=== PATIENT | male | born 1945 | race Caucasian/White ===

== ENCOUNTER 2017-12-22 13:00 | Inpatient (IN) | payer OTHER, MEDICARE ==
[~2017-12-22] VITALS: Ht 175.3 cm; Wt 85.5 kg
[2017-12-22 18:00] VITALS: BP 135/75; PULSE 80; RESP 20; TEMP 98.6; O2SAT 93
[2017-12-22] MEDS ORDERED: LACTULOSE SYRUP 20 GM/30 ML CUP PO PRN (18:15)
[2017-12-22] MEDS ORDERED: MAGNESIUM HYDROXIDE SUSP 30 ML CUP PO PRN (18:15)
[2017-12-22] MEDS ORDERED: SENNOSIDES 8.6 MG TAB PO PRN (18:15)
[2017-12-22] MEDS ORDERED: NALOXONE HCL 0.4 MG/ML AMP IV PUSH PRN (18:15)
[2017-12-22] MEDS ORDERED: SODIUM CHLORIDE 0.9% FLUSH 10 ML FLUSH IV FLUSH PRN (18:15)
[2017-12-22 20:00] VITALS: BP 146/75; PULSE 80; PULSE 82; RESP 18; TEMP 98.1; O2SAT 94
[2017-12-22] MEDS ORDERED: HYDROcodone 5 MG/HOMATROPINE 1.5 MG SYRUP 5 ML CUP PO PRN (20:15)
[2017-12-22] MEDS ORDERED: ACETAMINOPHEN/HYDROcodone 325 MG/10 MG TAB PO PRN (20:15)
[2017-12-22] MEDS ORDERED: SODIUM CHLORIDE 0.9% FLUSH 10 ML FLUSH IVF PRN (20:30)
[2017-12-22] MEDS ORDERED: DEXTROSE 50% IN WATER 50 ML VIAL(D50) IV PUSH PRN (20:30)
[2017-12-22] MEDS ORDERED: GLUCAGON 1 MG/ML VIAL OTHER PRN (20:30)
[2017-12-22] MEDS: INSULIN ASPART SUPPLEMENTAL SCALE SQ SCH (21:00)
[2017-12-22] MEDS: DOCUSATE SODIUM 50 MG/SENNA 8.6 MG TAB PO SCH (21:00)
[2017-12-22] MEDS: SUCRALFATE 1 GM/10 ML CUP PO SCH (21:22)
[2017-12-22] MEDS: guaiFENesin/DEXTROMETHORPHAN 200 MG/20 MG/10 ML CUP PO PRN (21:22)
[2017-12-22] MEDS: SODIUM CHLORIDE 0.9% FLUSH 10 ML FLUSH IV FLUSH SCH (21:22)
[2017-12-22] MEDS: PANTOPRAZOLE SOD 40 MG DELAYED RELEASE TAB PO SCH (21:23)
[2017-12-22] MEDS: METOPROLOL TARTRATE 50 MG TAB PO SCH (21:23)
[2017-12-22] MEDS: ZOLPIDEM TARTRATE 5 MG TAB PO PRN (21:23)
[2017-12-22] MEDS: DOCUSATE SODIUM 100 MG CAP PO SCH (21:23)
[2017-12-22] MEDS: BUDESONIDE-FORMOTEROL 160/4.5 MCG INHALER INH SCH (21:23)
--- NOTE | 2017-12-22 21:43 | HHI.HP ---
HPI Service [facility] Hospitalists . Primary Care Physician Chandler Hoyos . Admission Diagnosis Stage 3B anaplastic large cell lymphoma . 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 Dominguez is a 72 y/o male with a history of hypertension, hyperlipidemia, COPD, and peripheral neuropathy along with newly diagnosed anaplastic large cell lymphoma who was transferred from [facility] where he was diagnosed to [facility] to receive treatment due to insurance reasons. The patient was admitted to [facility] for evaluation after presenting to the ER on 12/13/2017 complaining of difficulty breathing and productive cough not relieved after 3 different courses of antibiotic therapy prescribed by patient's primary care physician. He was found to have pneumonia - I was unable to determine the course of treatment from review of meds and hospital records. He also has had a lump on his left neck since August 2018 which was biopsied and showed anaplastic large cell lymphoma alk negative. The oncologist at [facility] recommended chemotherapy to begin as soon as possible and possible bone marrow aspiration but due to insurance concerns he had to be transferred to [facility] for further treatment. He sees an oncologist in [place] as an outpatient - Dr. Somers. He has seen ENT Dr. Thorne. The patient is denying pain at the time of my visit but reports fatigue, nonproductive congested cough, and shortness of breath. Patient reports that his symptoms first started in June 2017 but have progressively worsened until his SOB became so severe that he felt like he "couldn't breath" prior to presenting to ED on 12/13. Denies associated fever or chills. Review of Systems Except as stated in HPI: all other systems reviewed are Neg Past Family Social History Past Medical History NSVT while at [facility] CVA without residual deficits Hyperlipidemia Hypertension COPD Bilateral lower extremity neuropathy . Past Surgical History Port-A-Cath placed 12/20/2017 Back surgery [facility] in [place] . Allergies: Coded Allergies: Hydrocodone (Verified Adverse Reaction, Mild, 12/22/17) Hallucinations Active Ordered Medications Current Medications Sodium Chloride (NS Flush) 2 ml UNSCH PRN IV FLUSH FLUSH AFTER USING IV ACCESS ; Start 12/22/17 at 18:15 Sodium Chloride (NS Flush) 2 ml BID IV FLUSH ; Start 12/22/17 at 21:00 Ondansetron HCl (Zofran Inj) 4 mg Q6H PRN IVP NAUSEA OR VOMITING; Start at 18:15 Naloxone HCl (Narcan Inj) 0.4 mg UNSCH PRN IV PUSH SEE LABEL COMMENTS; Start at 18:15 Senna/Docusate Sodium (Mary Kay-Colace) 1 tab BID PO ; Start 12/22/17 at 21:00 Magnesium Hydroxide (Milk Of Magnesia Liq) 30 ml Q12H PRN PO Mild constipation ; Start 12/22/17 at 18:15 Sennosides (Senokot) 17.2 mg Q12H PRN PO Moderate constipation; Start 12/22/17 at 18:15 Lactulose (Lactulose Liq) 30 ml DAILY PRN PO SEVERE CONSITIPATION; Start at 18:15 Acetaminophen/ Hydrocodone Bitart ([place] 10-325 Mg) 1 tab Q4H PRN PO pain; Start 12/22/17 at 20:15 Lorazepam (Ativan) 1 mg Q8H PRN PO MODERATE TO SEVERE ANXIETY; Start 12/22/17 at 20:15 Albuterol/ Ipratropium (Duoneb Neb) 1 ampule Q4HR NEB PRN NEB SOB/WHEEZING; Start 12/22/17 at 20:15 Zolpidem Tartrate (Ambien) 5 mg HS PRN PO INSOMNIA; Start 12/22/17 at 20:15 Sucralfate (Carafate Liq) 1 gm ACHS PO ; Start 12/22/17 at 21:00 Prednisone (Deltasone) 5 mg DAILY PO ; Start 12/23/17 at 09:00 Pantoprazole Sodium (Protonix) 40 mg Q12HR PO ; Start 12/22/17 at 21:00 Metoprolol Tartrate (Lopressor) 50 mg Q12HR PO ; Start 12/22/17 at 21:00 Megestrol Acetate (Megace Liq) 800 mg DAILY PO ; Start 12/23/17 at 09:00 Docusate Sodium (Colace) 100 mg BID PO ; Start 12/22/17 at 21:00 Budesonide/ Formoterol Fumarate (Symbicort 160-4.5 Mcg Inh) 1 puff Q12HR INH ; Start 12/22/17 at 21:00 Aspirin (Ecotrin Ec) 81 mg DAILY PO ; Start 12/23/17 at 09:00 Atorvastatin Calcium (Lipitor) 80 mg DAILY PO ; Start 12/23/17 at 09:00 Multivitamins (Theragran) 1 tab DAILY PO ; Start 12/23/17 at 09:00 Heparin Sodium (Porcine) (Heparin Central Flush) 500 units UNSCH IV FLUSH ; Start 12/22/17 at 20:30 Sodium Chloride (NS Flush) 5 ml UNSCH PRN IVF SEE PROTOCOL; Start 12/22/17 at 20:30 Heparin Sodium (Porcine) (Heparin Central Flush) 250 units UNSCH PRN IV FLUSH SEE PROTOCOL; Start 12/22/17 at 20:30 Dextrose (D50w (Vial) Inj) 50 ml UNSCH PRN IV PUSH HYPOGLYCEMIA-SEE COMMENTS; Start 12/22/17 at 20:30 Glucagon (Glucagon Inj) 1 mg UNSCH PRN OTHER HYPOGLYCEMIA-SEE COMMENTS; Start 12/22/17 at 20:30 Insulin Aspart (NovoLOG SUPPLEMENTAL SCALE) 1 ACHS SLIDING SCALE SQ ; Start 08/01 at 21:00 Guaifenesin/ Dextromethorphan (Robitussin Dm 200-20 Mg/10 ml Liq) 10 ml Q4H PRN PO cough interfering with rest; Start 12/22/17 at 21:00 Family History Father from lung cancer . Social History Tobacco: smoked from age 11 until age 55 about 1 1/2 PPD. Alcohol: denies Illicit Drugs: denies . Physical Exam Vital Signs Vital Signs Date Time Temp Pulse Resp B/P (MAP) Pulse Ox O2 Delivery O2 Flow Rate FiO2 12/22/17 18:00 98.6 80 20 135/75 (95) 93 Physical Exam GENERAL: This is a thin pleasant older male patient, in no apparent distress. SKIN: No rashes. Cool and dry. Right chest wall portacath. HEAD: Atraumatic. Normocephalic. EYES: No scleral icterus. No injection or drainage. ENT: Nose without bleeding, purulent drainage. NECK: Trachea midline. No JVD. Left supraclavicular lymphadenopathy palpated, fixed. CARDIOVASCULAR: Regular rate and rhythm without murmurs, gallops, or rubs. RESPIRATORY: Breath sounds diminished at bases equal bilaterally. No wheezes, rales, or rhonchi. Mild tachypnea noted. GASTROINTESTINAL: Abdomen soft, non-tender, nondistended. No guarding. MUSCULOSKELETAL: Extremities without clubbing, cyanosis, or edema. No calf tenderness. NEUROLOGICAL: Awake and alert. Motor and sensory grossly within normal limits. Normal speech. . Laboratory Per review of records from [facility] Left neck mass for biopsy showed anaplastic large cell lymphoma alkaline negative Most recent labs 12/22/2017 showed WBC was 40.6, hemoglobin 9.9, hematocrit 31.7 , platelets 482,000. Left shift was noted. Magnesium 2.4, phosphate 2.2. Sodium was 142, potassium 4.6, BUN 21, creatinine 0.75, calcium 8.9, ALT 49, AST 40, alkaline phosphatase 112, T bili 0.3. . Imaging Per review of records from [facility] Abdomen/pelvis CT showed retroperitoneal lymphadenopathy Chest x-ray on 12/19/2017 showed right parahilar and lower lung zone with possible pneumonia - patient was not transferred with antibiotics on record review Nuclear MUGA scans showed EF of 81% . Caprini VTE Risk Assessment Caprini VTE Risk Assessment: Mod/High Risk (score >= 2) Caprini Risk Assessment Model Point Value = 1 Point Value = 2 Point Value = 3 Point Value = 5 Age 41-60 Minor surgery BMI > 25 kg/m2 Swollen legs Varicose veins or History of unexplained or recurrent spontaneous Oral contraceptives or hormone replacement Sepsis (< 1 month) Serious lung disease, including pneumonia (< 1 month) Abnormal pulmonary function Acute myocardial infarction Congestive heart failure (< 1 month) History of inflammatory bowel disease Medical patient at bed rest Age 61-74 Arthroscopic surgery Major open surgery (> 45 min) Laparoscopic surgery (> 45 min) Malignancy Confined to bed (> 72 hours) Immobilizing plaster cast Central venous access Age >= 75 History of VTE Family history of VTE Factor V Leiden Prothrombin [id number] Lupus anticoagulant Anticardiolipin antibodies Elevated serum homocysteine Heparin-induced thrombocytopenia Other congenital or acquired thrombophilia Stroke (< 1 month) Elective arthroplasty Hip, pelvis, or leg fracture Acute spinal cord injury (< 1 month) Prophylaxis Regimen Total Risk Factor Score Risk Level Prophylaxis Regimen 0-1 Low Early ambulation 2 Moderate Order ONE of the following: *Sequential Compression Device (SCD) *Heparin 5000 units SQ BID 3-4 Higher Order ONE of the following medications: *Heparin 5000 units SQ TID *Enoxaparin/Lovenox 40 mg SQ daily (WT < 150 kg, CrCl > 30 mL/min) *Enoxaparin/Lovenox 30 mg SQ daily (WT < 150 kg, CrCl > 10-29 mL/min) *Enoxaparin/Lovenox 30 mg SQ BID (WT < 150 kg, CrCl > 30 mL/min) AND/OR *Sequential Compression Device (SCD) 5 or more Highest Order ONE of the following medications: *Heparin 5000 units SQ TID (Preferred with Epidurals) *Enoxaparin/Lovenox 40 mg SQ daily (WT < 150 kg, CrCl > 30 mL/min) *Enoxaparin/Lovenox 30 mg SQ daily (WT < 150 kg, CrCl > 10-29 mL/min) *Enoxaparin/Lovenox 30 mg SQ BID (WT < 150 kg, CrCl > 30 mL/min) AND *Sequential Compression Device (SCD) Assessment and Plan Problem List: (1) 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 Dominguez is a 72 y/o male with a history of newly diagnosed anaplastic large cell lymphoma who was transferred from [facility] where he was diagnosed to [facility] to receive treatment due to insurance reasons. Anaplastic large cell lymphoma ALK negative - Consult medical oncology - appreciate assistance with treatment - Oxycodone 5/325 mg p.o. q4h PRN pain > 4 - Zofran 4 mg IV every 6 hours when necessary nausea or vomiting COPD - Supplemental oxygen as needed - Continue Proventil inhalers - Duo nebulizers as needed for shortness of breath/wheezing - Continue prednisone 5 mg by mouth daily Anxiety - Continue lorazepam 1 mg by mouth every 8 hours when necessary for moderate to severe anxiety Hyperlipidemia - Continue home atorvastatin 80 mg by mouth daily Hypertension - Continue metoprolol 50 mg by mouth every 12 hours Steroid-induced hyperglycemia - We'll continue Accu-Cheks before meals and at bedtime with low-dose NovoLog sliding scale coverage - Monitor trends and blood glucose levels and adjust treatments accordingly Hx of NSVT at [facility] per record review - continuous cardiac telemetry to monitor for dysrhythmia - patient will need stress test as an outpatient at some point in time - nuclear med MUGA scan showed EF 81% at [facility] - Denies chest pain DVT prophylaxis - SCDs . Discussed Condition With Dr. Enrique, patient, and RN . Physician Certification 2 Midnight Certification Type: Admission for Inpatient Services Order for Inpatient Services The services are ordered in accordance with Medicare regulations or non- Medicare payer requirements, as applicable. In the case of services not specified as inpatient-only, they are appropriately provided as inpatient services in accordance with the 2-midnight benchmark. Estimated LOS (days): 3 days is the estimated time the patient will need to remain in the hospital, assuming treatment plan goals are met and no additional complications. Post-Hospital Plan: Not yet determined Lili Rainey Dec 22, 2017 21:43
[2017-12-22] MEDS ORDERED: oxyCODONE/ACETAMINOPHEN 5 MG/325 MG TAB PO PRN (23:00)
--- NOTE | 2017-12-22 23:30 | RADRPT ---
EXAM DATE/TIME: 12/22/2017 23:14 [place] COMPARISON: No previous studies available for comparison. INDICATIONS : Shortness of breath. MEDICAL HISTORY : Lymphoma. SURGICAL HISTORY : Usnizt-t-jdal ENCOUNTER: Initial ACUITY: 1 day PAIN SCORE: 0/10 LOCATION: Bilateral chest FINDINGS: Bibasilar consolidation and small effusions present, right worse than left. No pneumothorax seen. Cardiomediastinal silhouette is within normal limits. Patient has a right internal jugular Infuse-a-P ort catheter with tip in the superior vena cava. CONCLUSION: Bibasilar consolidation and small effusions, right worse than left. Andres Parekh MD on December 22, 2017 at 23:29 Board Certified Radiologist. This report was verified electronically.
[2017-12-23] VITALS (9 sets, daily range): BP systolic 125–145; BP diastolic 69–83; PULSE 75–107; RESP 18–22; TEMP 97.8–98.1; O2SAT 93–95
[2017-12-23] MEDS: INSULIN ASPART SUPPLEMENTAL SCALE SQ SCH ×4 (07:22→20:40)
--- NOTE | 2017-12-23 08:12 | HHI.PR ---
Subjective Remarks This is a pleasant 72 y/o male with Hypertension, Hyperlipidemia, COPD, peripheral Neuropathy with newly diagnosed anaplastic large cell lymphoma Initially admitted to [facility] on 12/13/17, due to difficulty to breath, received antibiotics, found Pneumonia, He also has had a lump on his left neck since August 2018 which was biopsied and showed anaplastic large cell lymphoma alk negative. The oncologist at [facility] recommended chemotherapy to begin as soon as possible and possible bone marrow aspiration but due to insurance concerns he had to be transferred to [facility] for further treatment. He sees an oncologist in [place] as an outpatient - Dr. Somers. He has seen ENT Dr. Thorne. Developed NSVT while at [facility]. patient seen in his bedroom awaiting for final disposition by Oncology, he is not eating well, will start him on IV fluids, TPN asked, PICC line, Bronchodilator, Mucolytic, Incentive spirometry, Finishing Machine Operator Automatic evaluation, PEG tube placement, reviewed his Port placed last 12/20/17 and not ready to remove stitches, discussed with nurse Taylor and with his Mrs. Kalani Diaz. Objective Vital Signs Date Time Temp Pulse Resp B/P (MAP) Pulse Ox O2 Delivery O2 Flow Rate FiO2 12/23/17 04:00 97.9 82 18 128/73 (91) 94 12/23/17 00:00 75 12/23/17 00:00 98.0 75 18 140/74 (96) 93 12/22/17 20:00 98.1 82 18 146/75 (98) 94 12/22/17 20:00 80 12/22/17 20:00 Nasal Cannula 3.00 12/22/17 18:00 98.6 80 20 135/75 (95) 93 I/O 12/22/17 12/22/17 12/22/17 12/23/17 12/23/17 12/23/17 07:00 15:00 23:00 07:00 15:00 23:00 Intake Total 160 ml Output Total 200 ml Balance -40 ml Intake Oral 160 ml Output Urine Total 200 ml # Bowel Movements 1 Imaging Last Impressions Chest X-Ray 12/22/17 0000 Signed Impressions: Service Date/Time: Friday, December 22, 2017 23:14 - CONCLUSION: Bibasilar consolidation and small effusions, right worse than left. Andres Parekh MD Per review of records from [facility] Abdomen/pelvis CT showed retroperitoneal lymphadenopathy Chest x-ray on 12/19/2017 showed right parahilar and lower lung zone with possible pneumonia - patient was not transferred with antibiotics on record review Nuclear MUGA scans showed EF of 81% Procedures None Other Results Per review of records from [facility] Left neck mass for biopsy showed anaplastic large cell lymphoma alkaline negative Most recent labs 12/22/2017 showed WBC was 40.6, hemoglobin 9.9, hematocrit 31.7 , platelets 482,000. Left shift was noted. Magnesium 2.4, phosphate 2.2. Sodium was 142, potassium 4.6, BUN 21, creatinine 0.75, calcium 8.9, ALT 49, AST 40, alkaline phosphatase 112, T bili 0.3. . Objective Remarks GENERAL: This is a thin pleasant older male patient, in no apparent distress. SKIN: No rashes. Cool and dry. Right chest wall portacath. HEAD: Atraumatic. Normocephalic. EYES: No scleral icterus. No injection or drainage. ENT: Nose without bleeding, purulent drainage. NECK: Trachea midline. No JVD. Left supraclavicular lymphadenopathy palpated, fixed. CARDIOVASCULAR: Regular rate and rhythm without murmurs, gallops, or rubs. RESPIRATORY: Breath sounds diminished at bases equal bilaterally. No wheezes, rales, or rhonchi. Mild tachypnea noted. GASTROINTESTINAL: Abdomen soft, non-tender, nondistended. No guarding. MUSCULOSKELETAL: Extremities without clubbing, cyanosis, or edema. No calf tenderness. NEUROLOGICAL: Awake and alert. Motor and sensory grossly within normal limits. Normal speech. . Medications and IVs Current Medications Medications (Trade) Dose Ordered Sig/Candace Route Start Time Stop Time Status Last Admin (NS Flush) 2 ml UNSCH PRN IV FLUSH 12/22/17 18:15 (NS Flush) 2 ml BID IV FLUSH 12/22/17 21:00 12/22/17 21:22 (Zofran Inj) 4 mg Q6H PRN IVP 12/22/17 18:15 (Narcan Inj) 0.4 mg UNSCH PRN IV PUSH 12/22/17 18:15 (Mary Kay-Colace) 1 tab BID PO 12/22/17 21:00 (Milk Of Magnesia Liq) 30 ml Q12H PRN PO 12/22/17 18:15 (Senokot) 17.2 mg Q12H PRN PO 12/22/17 18:15 (Lactulose Liq) 30 ml DAILY PRN PO 12/22/17 18:15 (Ativan) 1 mg Q8H PRN PO 12/22/17 20:15 (Duoneb Neb) 1 ampule Q4HR NEB PRN NEB 12/22/17 20:15 (Ambien) 5 mg HS PRN PO 12/22/17 20:15 12/22/17 21:23 (Carafate Liq) 1 gm ACHS PO 12/22/17 21:00 12/22/17 21:22 (Deltasone) 5 mg DAILY PO 12/23/17 09:00 (Protonix) 40 mg Q12HR PO 12/22/17 21:00 12/22/17 21:23 (Lopressor) 50 mg Q12HR PO 12/22/17 21:00 12/22/17 21:23 (Megace Liq) 800 mg DAILY PO 12/23/17 09:00 (Colace) 100 mg BID PO 12/22/17 21:00 12/22/17 21:23 (Symbicort 160-4.5 Mcg Inh) 1 puff Q12HR INH 12/22/17 21:00 12/22/17 21:23 (Ecotrin Ec) 81 mg DAILY PO 12/23/17 09:00 (Lipitor) 80 mg DAILY PO 12/23/17 09:00 (Theragran) 1 tab DAILY PO 12/23/17 09:00 (Heparin Central Flush) 500 units UNSCH IV FLUSH 12/22/17 20:30 (NS Flush) 5 ml UNSCH PRN IVF 12/22/17 20:30 (Heparin Central Flush) 250 units UNSCH PRN IV FLUSH 12/22/17 20:30 (D50w (Vial) Inj) 50 ml UNSCH PRN IV PUSH 12/22/17 20:30 (Glucagon Inj) 1 mg UNSCH PRN OTHER 12/22/17 20:30 (NovoLOG SUPPLEMENTAL SCALE) 1 ACHS SLIDING SCALE SQ 12/22/17 21:00 (Robitussin Dm 200-20 Mg/10 ml Liq) 10 ml Q4H PRN PO 12/22/17 21:00 12/22/17 21:22 (Percocet 5-325 Mg) 1 tab Q4H PRN PO 12/22/17 23:00 A/P Assessment and Plan (1) 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 Diaz is a 72 y/o male with a history of newly diagnosed anaplastic large cell lymphoma who was transferred from [facility] sent to our facility to continue his management. due to insurance reasons. Anaplastic large cell lymphoma ALK negative, Awaiting lead generation specialist for management. Port evaluated stitches not ready for removal. - Consult medical oncology - appreciate assistance with treatment - Oxycodone 5/325 mg p.o. q4h PRN pain > 4 - Zofran 4 mg IV every 6 hours when necessary nausea or vomiting - on IV fluids, TPN asked, PICC line, Bronchodilator, Mucolytic, Incentive spirometry, Finishing Machine Operator Automatic evaluation, PEG tube placement, reviewed his Port placed last 12/20/17 and not ready to remove stitches, discussed with nurse Miss Vazquez and with his Mrs. Kalani Diaz. COPD - Supplemental oxygen as needed - Continue Proventil inhalers - Bronchodilator, Mucolytic and incentive spirometry. - Continue prednisone 5 mg by mouth daily Anxiety - Continue lorazepam 1 mg by mouth every 8 hours when necessary for moderate to severe anxiety Hyperlipidemia - Continue home atorvastatin 80 mg by mouth daily Hypertension - Continue metoprolol 50 mg by mouth every 12 hours Steroid-induced hyperglycemia - We'll continue Accu-Cheks before meals and at bedtime with low-dose NovoLog sliding scale coverage - Monitor trends and blood glucose levels and adjust treatments accordingly Hx of NSVT at [facility] per record review - continuous cardiac telemetry to monitor for dysrhythmia - patient will need stress test as an outpatient at some point in time - nuclear med MUGA scan showed EF 81% [facility] - Denies chest pain DVT prophylaxis - SCDs . Discussed Condition With with nurse Miss Vazquez and with his Mrs. Kalani Diaz she states the patient is Full code, does not want to talk at this time with Palliative care, agree with PEG tube placement I decided to consult GI specialist due to abdominal Compromise, also asked for TPN and PICC line placement. Discharge Planning Once cleared by lead generation specialist and GI specialist. Nils Nichols MD Dec 23, 2017 08:12
[2017-12-23] MEDS: MULTIVITAMIN TAB PO SCH (08:18)
[2017-12-23] MEDS: ASPIRIN EC 81 MG TABEC PO SCH (08:18)
[2017-12-23] MEDS: PANTOPRAZOLE SOD 40 MG DELAYED RELEASE TAB PO SCH ×2 (08:18→20:36)
[2017-12-23] MEDS: predniSONE 5 MG TAB PO SCH (08:18)
[2017-12-23] MEDS: DOCUSATE SODIUM 100 MG CAP PO SCH ×2 (08:19→20:39)
[2017-12-23] MEDS: METOPROLOL TARTRATE 50 MG TAB PO SCH ×2 (08:19→20:35)
[2017-12-23] MEDS: ATORVASTATIN 80 MG TAB PO SCH (08:19)
[2017-12-23] MEDS: DOCUSATE SODIUM 50 MG/SENNA 8.6 MG TAB PO SCH ×2 (08:19→20:35)
[2017-12-23] MEDS: SODIUM CHLORIDE 0.9% FLUSH 10 ML FLUSH IV FLUSH SCH ×2 (08:19→20:40)
[2017-12-23] MEDS: LORazepam 1 MG TAB PO PRN ×2 (08:19→18:16)
[2017-12-23] MEDS: SUCRALFATE 1 GM/10 ML CUP PO SCH ×4 (08:19→20:40)
[2017-12-23] MEDS: BUDESONIDE-FORMOTEROL 160/4.5 MCG INHALER INH SCH ×2 (08:19→20:39)
[2017-12-23] MEDS: MEGESTROL ACETATE SUSP 400 MG/10 ML CUP PO SCH (09:48)
[2017-12-23] MEDS: RESP: ALBUTEROL 2.5 MG/IPRATROPIUM 0.5 MG NEB (PRN) NEB (10:13)
[2017-12-23] MEDS ORDERED: SODIUM CHLORID 0.9% 500 ML INJ 500 ML IV ONE (11:30)
[2017-12-23] MEDS: SODIUM CHLOR 0.9% 1000 ML INJ 1,000 ML IV SCH (11:58)
[2017-12-23] MEDS: RESP: ALBUTEROL 2.5 MG/IPRATROPIUM 0.5 MG NEB (SCH) NEB ×3 (12:36→19:49)
--- NOTE | 2017-12-23 13:03 | PD.CONS ---
HPI History of Present Illness This is a 72 year old male with a history of HTN, COPD, newly diagnosed anaplastic large cell lymphoma who was transferred from [facility] where he was diagnosed to [facility] to receive treatment due to insurance reasons. GI have been consulted for PEG tube placement. Pt is able to swallow, however, has had no appetite and lost approx. 30 lbs over 8 weeks span. Reports some nausea, but no vomiting, no abd pain or hematochezia. (Julia Yang) PFSH Past Medical History NSVT while at [facility] CVA without residual deficits Hyperlipidemia Hypertension COPD Bilateral lower extremity neuropathy . Past Surgical History Port-A-Cath placed 12/20/2017 Back surgery [facility] in [place] . (Julia Yang) Coded Allergies: hydrocodone (Verified Adverse Reaction, Mild, 12/22/17) Hallucinations Medications Current Medications Medications (Trade) Dose Ordered Sig/Candace Route Start Time Stop Time Status Last Admin (NS Flush) 2 ml UNSCH PRN IV FLUSH 12/22/17 18:15 (NS Flush) 2 ml BID IV FLUSH 12/22/17 21:00 12/23/17 08:19 (Zofran Inj) 4 mg Q6H PRN IVP 12/22/17 18:15 (Narcan Inj) 0.4 mg UNSCH PRN IV PUSH 12/22/17 18:15 (Mary Kay-Colace) 1 tab BID PO 12/22/17 21:00 (Milk Of Magnesia Liq) 30 ml Q12H PRN PO 12/22/17 18:15 (Senokot) 17.2 mg Q12H PRN PO 12/22/17 18:15 (Lactulose Liq) 30 ml DAILY PRN PO 12/22/17 18:15 (Ativan) 1 mg Q8H PRN PO 12/22/17 20:15 12/23/17 08:19 (Duoneb Neb) 1 ampule Q4HR NEB PRN NEB 12/22/17 20:15 12/23/17 10:13 (Ambien) 5 mg HS PRN PO 12/22/17 20:15 12/22/17 21:23 (Carafate Liq) 1 gm ACHS PO 12/22/17 21:00 12/23/17 08:19 (Deltasone) 5 mg DAILY PO 12/23/17 09:00 12/23/17 08:18 (Protonix) 40 mg Q12HR PO 12/22/17 21:00 12/23/17 08:18 (Lopressor) 50 mg Q12HR PO 12/22/17 21:00 12/23/17 08:19 (Megace Liq) 800 mg DAILY PO 12/23/17 09:00 12/23/17 09:48 (Colace) 100 mg BID PO 12/22/17 21:00 12/23/17 08:19 (Symbicort 160-4.5 Mcg Inh) 1 puff Q12HR INH 12/22/17 21:00 12/23/17 08:19 (Ecotrin Ec) 81 mg DAILY PO 12/23/17 09:00 12/23/17 08:18 (Lipitor) 80 mg DAILY PO 12/23/17 09:00 12/23/17 08:19 (Theragran) 1 tab DAILY PO 12/23/17 09:00 12/23/17 08:18 (Heparin Central Flush) 500 units UNSCH IV FLUSH 12/22/17 20:30 (NS Flush) 5 ml UNSCH PRN IVF 12/22/17 20:30 (Heparin Central Flush) 250 units UNSCH PRN IV FLUSH 12/22/17 20:30 (D50w (Vial) Inj) 50 ml UNSCH PRN IV PUSH 12/22/17 20:30 (Glucagon Inj) 1 mg UNSCH PRN OTHER 12/22/17 20:30 (NovoLOG SUPPLEMENTAL SCALE) 1 ACHS SLIDING SCALE SQ 12/22/17 21:00 (Robitussin Dm 200-20 Mg/10 ml Liq) 10 ml Q4H PRN PO 12/22/17 21:00 12/22/17 21:22 (Percocet 5-325 Mg) 1 tab Q4H PRN PO 12/22/17 23:00 Sodium Chloride 1,000 ml @ 100 mls/hr Q10H IV 12/23/17 12:00 (Duoneb Neb) 1 ampule Q4HR NEB NEB 12/23/17 12:00 12/23/17 12:36 (Mucinex Er) 600 mg BID PO 12/23/17 21:00 Family History Father from lung cancer . Social History Tobacco: smoked from age 11 until age 55 about 1 /2 PPD. Alcohol: denies Illicit Drugs: denies . (Julia Yang) Review of Systems Constitutional: COMPLAINS OF: Fatigue, Weight loss Endocrine: DENIES: Polyuria Eyes: DENIES: Double Vision Ears, nose, mouth, throat: DENIES: Hoarseness Respiratory: COMPLAINS OF: Shortness of breath Cardiovascular: DENIES: Lower Extremity Edema Gastrointestinal: COMPLAINS OF: Nausea, Anorexia, DENIES: Abdominal pain, Black stools, Bloody stools, Constipation, Diarrhea, Vomiting, Difficulty Swallowing, Odynophagia, Swelling of Abdomen, Heartburn, Hematemesis Genitourinary: DENIES: Hematuria Musculoskeletal: DENIES: Neck pain Integumentary: DENIES: Jaundice Hematologic/lymphatic: DENIES: Bruising Immunologic/allergic: DENIES: Eczema Neurologic: DENIES: Abnormal gait (Julia Yang) GI Exam Vitals I&O Vital Signs Date Time Temp Pulse Resp B/P (MAP) Pulse Ox O2 Delivery O2 Flow Rate FiO2 12/23/17 09:47 95 Nasal Cannula 3.00 12/23/17 08:00 91 12/23/17 08:00 98.1 91 22 145/83 (103) 93 12/23/17 08:00 Nasal Cannula 3.00 12/23/17 04:00 97.9 82 18 128/73 (91) 94 12/23/17 00:00 75 12/23/17 00:00 98.0 75 18 140/74 (96) 93 12/22/17 20:00 98.1 82 18 146/75 (98) 94 12/22/17 20:00 80 12/22/17 20:00 Nasal Cannula 3.00 12/22/17 18:00 98.6 80 20 135/75 (95) 93 I/O 12/22/17 12/22/17 12/22/17 12/23/17 12/23/17 12/23/17 07:00 15:00 23:00 07:00 15:00 23:00 Intake Total 160 ml 60 ml Output Total 200 ml Balance -40 ml 60 ml Intake Oral 160 ml 60 ml IV Total 0 ml Output Urine Total 200 ml # Voids 1 # Bowel Movements 1 1 Imaging Last Impressions Chest X-Ray 12/22/17 0000 Signed Impressions: Service Date/Time: Friday, December 22, 2017 23:14 - CONCLUSION: Bibasilar consolidation and small effusions, right worse than left. Andres Parekh MD Physical Examination HEENT: normocephalic; atraumatic; no jaundice. CHEST: Breath sounds diminished at bases CARDIAC: Regular rate and rhythm with no murmur gallop or rubs. ABDOMEN: Soft, nondistended, nontender; no hepatosplenomegaly; bowel sounds are present in all four quadrants. EXTREMITIES: No clubbing, cyanosis, + edema. SKIN: Normal; no rash; no jaundice. PRESALES ENGINEER: No focal deficits; alert and oriented times three. (Julia Yang) Assessment and Plan Plan - Wt loss, loss of appetite, ENF- newly diagnosed anaplastic large cell lymphoma who was transferred from [facility] where he was diagnosed to [facility] to receive treatment due to insurance reasons. GI have been consulted for PEG tube placement. Pt is able to swallow, however, has had no appetite and lost approx. 30 lbs over 8 weeks span. Reports some nausea, but no vomiting, no abd pain or hematochezia. - newly diagnosed anaplastic large cell lymphoma- oncology on the case - Hx of COPD, HTN per attending Plan: - EGD/PEG in the am - Consents - NPO mn - Rocephin cyber defense incident responder to GI - Supportive care - Patient seen and examined by Dr. Mak and myself and this note is written on his behalf. (Julia Yang) Physician Comments Seen and examined. Plan as above, PEG placement in AM. Thank you for the consult. (Elvis Mak MD) Julia Yang Dec 23, 2017 13:03 Elvis Mak MD Dec 23, 2017 23:15
[2017-12-23] MEDS ORDERED: cefTRIAXone INJ 2,000 MG in SODIUM CHLORIDE 0.9% INJ 100 ML IV ONE (13:15)
[2017-12-23 13:41] LABS: AUTOMATED NEUTROPHIL # 33.6 TH/MM3 (1.8-7.7); HEMATOCRIT 26.6 % (39.0-51.0); HEMOGLOBIN 9.3 GM/DL (13.0-17.0); LYMPH % 3.6 % (9.0-44.0); LYMPHOCYTE # 1.3 TH/MM3 (1.0-4.8); MEAN CORPUSCULAR HEMOGLOBIN 29.1 PG (27.0-34.0); MONO % 3.5 % (0.0-8.0); MONOCYTE # 1.3 TH/MM3 (0-0.9); NEUT % 92.9 % (16.0-70.0); PLATELET COUNT 411 TH/MM3 (150-450); RED CELL DISTRIBUTION WIDTH 17.8 % (11.6-17.2); WHITE BLOOD COUNT 36.2 TH/MM3 (4.0-11.0)
[2017-12-23 13:57] LABS: ALBUMIN 1.5 GM/DL (3.4-5.0); ALT (GPT) 40 U/L (12-78); BICARBONATE 29.6 MEQ/L (21.0-32.0); BLOOD UREA NITROGEN 21 MG/DL (7-18); CALCIUM 8.6 MG/DL (8.5-10.1); CHLORIDE 105 MEQ/L (98-107); CREATININE 0.81 MG/DL (0.60-1.30); GLOMERULAR FILTRATION RATE 93 ML/MIN (>89); GLUCOSE,RANDOM 116 MG/DL (74-106); SODIUM (NA) 140 MEQ/L (136-145)
[2017-12-23 13:58] LABS: AST (GOT) 21 U/L (15-37); CHOLESTEROL 66 MG/DL (120-200); TRIGLYCERIDES 52 MG/DL (42-150)
[2017-12-23 14:23] LABS: ALKALINE PHOSPHATASE 109 U/L (45-117); FOLATE 13.2 NG/ML (3.1-17.5); FREE T4 1.41 NG/DL (0.76-1.46); HDL CHOLESTEROL 27.5 MG/DL (40.0-60.0); LDL CHOLESTEROL 28 MG/DL (0-99); TOTAL BILIRUBIN ADULT 0.5 MG/DL (0.2-1.0); TOTAL PROTEIN 5.3 GM/DL (6.4-8.2)
[2017-12-23 14:24] LABS: NEUTROPHIL # MANUAL DIFF 36.2 TH/MM3 (1.8-7.7); POLYS (SEG NEUTROPHILS) 100 % (16-70)
[2017-12-23] MEDS ORDERED: ALLOPURINOL 300 MG TAB PO SCH (16:00)
[2017-12-23] MEDS: guaiFENesin/DEXTROMETHORPHAN 200 MG/20 MG/10 ML CUP PO PRN (18:24)
[2017-12-23] MEDS: ZOLPIDEM TARTRATE 5 MG TAB PO PRN (20:35)
[2017-12-23] MEDS: guaiFENesin E.R. 600 MG TAB PO SCH (20:35)
[2017-12-24] VITALS (21 sets, daily range): BP systolic 136–167; BP diastolic 69–87; PULSE 78–114; RESP 17–30; TEMP 97.5–98.9; O2SAT 91–98
[2017-12-24] MEDS: RESP: ALBUTEROL 2.5 MG/IPRATROPIUM 0.5 MG NEB (SCH) NEB ×7 (00:34→23:25)
[2017-12-24] MEDS: SODIUM CHLOR 0.9% 1000 ML INJ 1,000 ML IV SCH ×3 (00:40→18:00)
[2017-12-24] MEDS: LORazepam 1 MG TAB PO PRN ×2 (04:06→17:55)
[2017-12-24] MEDS: SUCRALFATE 1 GM/10 ML CUP PO SCH ×4 (08:00→19:56)
[2017-12-24] MEDS: INSULIN ASPART SUPPLEMENTAL SCALE SQ SCH ×4 (08:00→21:00)
--- NOTE | 2017-12-24 08:09 | HHI.PR ---
Subjective Remarks This is a pleasant 72 y/o male with Hypertension, Hyperlipidemia, COPD, peripheral Neuropathy with newly diagnosed anaplastic large cell lymphoma Initially admitted to [facility] on 12/13/17, due to difficulty to breath, received antibiotics, found Pneumonia, He also has had a lump on his left neck since August 2018 which was biopsied and showed anaplastic large cell lymphoma alk negative. The oncologist at [facility] recommended chemotherapy to begin as soon as possible and possible bone marrow aspiration but due to insurance concerns he had to be transferred to [facility] for further treatment. He sees an oncologist in [place] as an outpatient - Dr. Somers. He has seen ENT Dr. Thorne. Developed NSVT while at [facility]. patient seen in his bedroom awaiting for final disposition by Oncology, he is not eating well, will start him on IV fluids, TPN asked, PICC line, Bronchodilator, Mucolytic, Incentive spirometry, See Supervisor evaluation, PEG tube placement, reviewed his Port placed last 12/20/17 and not ready to remove stitches, discussed with nurse Miss Vazquez and with his Mrs. Kalani Diaz. 12/24: Seen by GI specialist, scheduled for EGD and PEG tube placement for today , evaluated Chest X ray now in view of laboratory I decide to start him on antibiotics, Vancomycin and Cefepime, asked for blood cultures, Sputum culture, Legionella antigen, Pneumococcal antigen, Infectious disease consult, Lactic Acid stat. discussed with patient and his another relatives in the room. all questions answered. Objective Vital Signs Date Time Temp Pulse Resp B/P (MAP) Pulse Ox O2 Delivery O2 Flow Rate FiO2 12/24/17 08:00 92 Nasal Cannula 4.00 12/24/17 04:26 98.8 91 18 145/69 (94) 98 12/24/17 04:00 94 12/24/17 00:40 98.4 79 17 153/76 (101) 96 12/24/17 00:00 79 12/23/17 20:33 97.8 98 19 134/69 (90) 94 12/23/17 20:24 94 Nasal Cannula 3.00 12/23/17 20:24 107 12/23/17 19:49 93 Nasal Cannula 3.00 12/23/17 18:00 98.1 85 22 125/72 (89) 94 12/23/17 12:00 98.0 76 22 130/73 (92) 94 12/23/17 09:47 95 Nasal Cannula 3.00 I/O 12/23/17 12/23/17 12/23/17 12/24/17 12/24/17 12/24/17 07:00 15:00 23:00 07:00 15:00 23:00 Intake Total 160 ml 60 ml 480 ml 800 ml Output Total 200 ml 200 ml Balance -40 ml 60 ml 480 ml 600 ml Intake Oral 160 ml 60 ml 480 ml 200 ml IV Total 0 ml 600 ml Output Urine Total 200 ml 200 ml # Voids 1 2 # Bowel Movements 1 1 Result Diagram: 12/23/17 1325 12/23/17 1325 Imaging Last Impressions Chest X-Ray 12/22/17 0000 Signed Impressions: Service Date/Time: Friday, December 22, 2017 23:14 - CONCLUSION: Bibasilar consolidation and small effusions, right worse than left. Andres Parekh MD Procedures None Other Results Laboratory Tests Test 12/23/17 13:25 12/24/17 04:20 White Blood Count 36.2 TH/MM3 Red Blood Count 3.20 MIL/MM3 Hemoglobin 9.3 GM/DL Hematocrit 26.6 % Mean Corpuscular Volume 83.0 FL Mean Corpuscular Hemoglobin 29.1 PG Mean Corpuscular Hemoglobin Concent 35.0 % Red Cell Distribution Width 17.8 % Platelet Count 411 TH/MM3 Mean Platelet Volume 7.0 FL Neutrophils (%) (Auto) 92.9 % Lymphocytes (%) (Auto) 3.6 % Monocytes (%) (Auto) 3.5 % Eosinophils (%) (Auto) 0.0 % Basophils (%) (Auto) 0.0 % Neutrophils # (Auto) 33.6 TH/MM3 Lymphocytes # (Auto) 1.3 TH/MM3 Monocytes # (Auto) 1.3 TH/MM3 Eosinophils # (Auto) 0.0 TH/MM3 Basophils # (Auto) 0.0 TH/MM3 CBC Comment AUTO DIFF Differential Total Cells Counted 100 Neutrophils % (Manual) 100 % Neutrophils # (Manual) 36.2 TH/MM3 Differential Comment FINAL DIFF MANUAL Platelet Estimate HIGH Platelet Morphology Comment NORMAL Blood Urea Nitrogen 21 MG/DL Creatinine 0.81 MG/DL Random Glucose 116 MG/DL Total Protein 5.3 GM/DL Albumin 1.5 GM/DL Calcium Level 8.6 MG/DL Alkaline Phosphatase 109 U/L Aspartate Amino Transf (AST/SGOT) 21 U/L Alanine Aminotransferase (ALT/SGPT) 40 U/L Total Bilirubin 0.5 MG/DL Sodium Level 140 MEQ/L Potassium Level 3.6 MEQ/L Chloride Level 105 MEQ/L Carbon Dioxide Level 29.6 MEQ/L Anion Gap 5 MEQ/L Estimat Glomerular Filtration Rate 93 ML/MIN Triglycerides Level 52 MG/DL Cholesterol Level 66 MG/DL LDL Cholesterol 28 MG/DL HDL Cholesterol 27.5 MG/DL Cholesterol/HDL Ratio 2.40 RATIO Vitamin B12 Level 1173 PG/ML Folate 13.2 NG/ML Free Thyroxine 1.41 NG/DL Thyroid Stimulating Hormone 3rd Gen 1.180 uIU/ML Erythrocyte Sedimentation Rate 67 mm/hr Uric Acid 3.5 MG/DL Lactate Dehydrogenase 163 U/L Objective Remarks GENERAL: This is a thin pleasant older male patient, in no apparent distress. SKIN: No rashes. Cool and dry. Right chest wall portacath. HEAD: Atraumatic. Normocephalic. EYES: No scleral icterus. No injection or drainage. ENT: Nose without bleeding, purulent drainage. NECK: Trachea midline. No JVD. Left supraclavicular lymphadenopathy palpated, fixed. CARDIOVASCULAR: Regular rate and rhythm without murmurs, gallops, or rubs. RESPIRATORY: Breath sounds diminished at bases equal bilaterally. No wheezes, rales, or rhonchi. Mild tachypnea noted. GASTROINTESTINAL: Abdomen soft, non-tender, nondistended. No guarding. MUSCULOSKELETAL: Extremities without clubbing, cyanosis, or edema. No calf tenderness. NEUROLOGICAL: Awake and alert. Motor and sensory grossly within normal limits. Normal speech. . Medications and IVs Current Medications Medications (Trade) Dose Ordered Sig/Candace Route Start Time Stop Time Status Last Admin (NS Flush) 2 ml UNSCH PRN IV FLUSH 12/22/17 18:15 (NS Flush) 2 ml BID IV FLUSH 12/22/17 21:00 12/23/17 08:19 (Zofran Inj) 4 mg Q6H PRN IVP 12/22/17 18:15 (Narcan Inj) 0.4 mg UNSCH PRN IV PUSH 12/22/17 18:15 (Mary Kay-Colace) 1 tab BID PO 12/22/17 21:00 12/23/17 20:35 (Milk Of Magnesia Liq) 30 ml Q12H PRN PO 12/22/17 18:15 (Senokot) 17.2 mg Q12H PRN PO 12/22/17 18:15 (Lactulose Liq) 30 ml DAILY PRN PO 12/22/17 18:15 (Ativan) 1 mg Q8H PRN PO 12/22/17 20:15 12/24/17 04:06 (Duoneb Neb) 1 ampule Q4HR NEB PRN NEB 12/22/17 20:15 12/23/17 10:13 (Ambien) 5 mg HS PRN PO 12/22/17 20:15 12/23/17 20:35 (Carafate Liq) 1 gm ACHS PO 12/22/17 21:00 12/23/17 18:16 (Deltasone) 5 mg DAILY PO 12/23/17 09:00 12/23/17 08:18 (Protonix) 40 mg Q12HR PO 12/22/17 21:00 12/23/17 20:36 (Lopressor) 50 mg Q12HR PO 12/22/17 21:00 12/23/17 20:35 (Megace Liq) 800 mg DAILY PO 12/23/17 09:00 12/23/17 09:48 (Colace) 100 mg BID PO 12/22/17 21:00 12/23/17 08:19 (Symbicort 160-4.5 Mcg Inh) 1 puff Q12HR INH 12/22/17 21:00 12/23/17 20:39 (Ecotrin Ec) 81 mg DAILY PO 12/23/17 09:00 12/23/17 08:18 (Lipitor) 80 mg DAILY PO 12/23/17 09:00 12/23/17 08:19 (Theragran) 1 tab DAILY PO 12/23/17 09:00 12/23/17 08:18 (Heparin Central Flush) 500 units UNSCH IV FLUSH 12/22/17 20:30 (NS Flush) 5 ml UNSCH PRN IVF 12/22/17 20:30 (Heparin Central Flush) 250 units UNSCH PRN IV FLUSH 12/22/17 20:30 (D50w (Vial) Inj) 50 ml UNSCH PRN IV PUSH 12/22/17 20:30 (Glucagon Inj) 1 mg UNSCH PRN OTHER 12/22/17 20:30 (NovoLOG SUPPLEMENTAL SCALE) 1 ACHS SLIDING SCALE SQ 12/22/17 21:00 (Robitussin Dm 200-20 Mg/10 ml Liq) 10 ml Q4H PRN PO 12/22/17 21:00 12/23/17 18:24 (Percocet 5-325 Mg) 1 tab Q4H PRN PO 12/22/17 23:00 Sodium Chloride 1,000 ml @ 100 mls/hr Q10H IV 12/23/17 12:00 12/24/17 00:40 (Duoneb Neb) 1 ampule Q4HR NEB NEB 12/23/17 12:00 12/24/17 07:59 (Mucinex Er) 600 mg BID PO 12/23/17 21:00 12/23/17 20:35 (Zyloprim) 300 mg NOW PO 12/23/17 16:00 01/22/18 17:00 A/P Assessment and Plan (1) 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 Diaz is a 72 y/o male with a history of newly diagnosed anaplastic large cell lymphoma who was transferred from [facility] sent to our facility to continue his management. due to insurance reasons. Anaplastic large cell lymphoma ALK negative, Awaiting documentation specialist for management. Port evaluated stitches not ready for removal. - Pain medicine, documentation specialist consulted, Zofran for nausea and vomit, IV fluids, Consult medical oncology - appreciate assistance with treatment - IV fluids, TPN asked, PICC line, Bronchodilator, Mucolytic, Incentive spirometry, See Supervisor evaluation, PEG tube placement, reviewed his Port placed last 12/20/17 and not ready to remove stitches, discussed with nurse Miss Vazquez and with his Mrs. Kalani Diaz. COPD - Supplemental oxygen as needed - Continue Proventil inhalers - Bronchodilator, Mucolytic and incentive spirometry. - Continue prednisone 5 mg by mouth daily, the patient may have this Leukocytosis secondary to Steroid use, but he has bilateral lower lobe consolidations, not transferred with antibiotics, I decide to start him on Vancomycin, Cefepime, asked for sputum cultures, Legionella antigen Pneumococcal antigen, Blood culture, Infectious disease specialist consult, Lactic Acid. awaiting for Oncology evaluation this changes may be secondary to his basal process of Lymphoma Anxiety - Continue lorazepam 1 mg by mouth every 8 hours when necessary for moderate to severe anxiety Hyperlipidemia - Continue home atorvastatin 80 mg by mouth daily Hypertension - Continue metoprolol 50 mg by mouth every 12 hours Steroid-induced hyperglycemia - We'll continue Accu-Cheks before meals and at bedtime with low-dose NovoLog sliding scale coverage - Monitor trends and blood glucose levels and adjust treatments accordingly Hx of NSVT at [facility] per record review - continuous cardiac telemetry to monitor for dysrhythmia - patient will need stress test as an outpatient at some point in time - nuclear med MUGA scan showed EF 81% at [facility] - Denies chest pain DVT prophylaxis - SCDs . Discussed Condition With with nurse Miss Vazquez and with his Mrs. Kalani Diaz she states the patient is Full code, does not want to talk at this time with Palliative care, agree with PEG tube placement I decided to consult GI specialist due to abdominal Compromise, also asked for TPN and PICC line placement. Discharge Planning Once cleared by documentation specialist and GI specialist. Nils Nichols MD Dec 24, 2017 08:09
[2017-12-24] MEDS: METOPROLOL TARTRATE 50 MG TAB PO SCH ×2 (08:15→19:59)
[2017-12-24] MEDS ORDERED: Vancomycin Consult Pharmacy 1 EA OTHER SCH (08:15)
[2017-12-24] MEDS: BUDESONIDE-FORMOTEROL 160/4.5 MCG INHALER INH SCH ×2 (08:19→19:56)
[2017-12-24] MEDS: SODIUM CHLORIDE 0.9% FLUSH 10 ML FLUSH IV FLUSH SCH ×2 (08:21→19:57)
[2017-12-24] MEDS: DOCUSATE SODIUM 100 MG CAP PO SCH ×2 (08:21→19:57)
[2017-12-24] MEDS: ASPIRIN EC 81 MG TABEC PO SCH (08:21)
[2017-12-24] MEDS: guaiFENesin E.R. 600 MG TAB PO SCH ×2 (08:22→19:55)
[2017-12-24] MEDS: DOCUSATE SODIUM 50 MG/SENNA 8.6 MG TAB PO SCH ×2 (08:22→21:00)
[2017-12-24] MEDS: PANTOPRAZOLE SOD 40 MG DELAYED RELEASE TAB PO SCH ×2 (08:22→19:56)
[2017-12-24] MEDS: CEFEPIME INJ 1,000 MG in SODIUM CHLORIDE 0.9% INJ 100 ML IV SCH ×2 (08:31→17:24)
[2017-12-24] MEDS: MULTIVITAMIN TAB PO SCH (09:00)
[2017-12-24] MEDS: ATORVASTATIN 80 MG TAB PO SCH (09:00)
[2017-12-24] MEDS: predniSONE 5 MG TAB PO SCH (09:00)
[2017-12-24] MEDS: MEGESTROL ACETATE SUSP 400 MG/10 ML CUP PO SCH (09:00)
--- NOTE | 2017-12-24 10:12 | MB ---
cc: Allie Suarez MD DATE OF CONSULT: 12/23/2017 REASON FOR CONSULTATION: Consult requested by hospitalist for evaluation of anaplastic large cell, non-Hodgkin's cell lymphoma. HISTORY OF PRESENT ILLNESS: Johny is a 72-year-old very pleasant male. He has been ill for the last 8 weeks or so. This all started about 8 weeks ago with a cough mixed with greenish phlegm and shortness of breath. He says that he saw his primary physician who has given him antibiotics on 3 different occasions. However, his symptoms did not improve. Subsequently, he had a CAT scan of the chest, abdomen and pelvis which showed diffuse lymphadenopathy on both sides of the diaphragm. He also had a PET scan which showed increased uptake in the lymph nodes involving the neck, chest, especially the mediastinal and hilar area, retroperitoneum and pelvic lymph nodes. During that evaluation, he noticed left neck mass. He was referred to ENT, Dr. Thorne. The patient underwent biopsy of the left neck mass. He was waiting to get the results and he got ill and he was admitted to [facility]. The patient underwent for the workup there since he was not able to eat. He was losing weight due to lack of nutrition. He has lost his appetite. He did not have any nausea or vomiting. Oncology was consulted. The patient was evaluated by Dr. Lambert. Dr. Lambert has initiated the treatment plan. He asked the interventional radiologist to place an Infusaport. He also got the echocardiogram, which showed left ventricular ejection fraction of 55-70%. He also had a MUGA scan, which showed EF of 60%. Dr. Lambert had recommended CHOP chemotherapy. However, due to his insurance, he was transferred to [place] for further treatment plan. The patient is directly transferred from [facility] to [facility]. GI has been consulted. He is scheduled to have upper endoscopy and PEG tube placement tomorrow. I have been asked to see the patient for further evaluation and management. The patient appears to be quite ill and frail appearing. He has been sick for the last 8 weeks. REVIEW OF SYSTEMS: He has lost a lot of weight. He is complaining of weakness, fatigue. He is complaining of cough, shortness of breath. He is complaining of pain into the belly on and off. His appetite is poor. He is barely able to eat. He denies any fever or night sweats. The rest of the review of systems is negative. PAST MEDICAL HISTORY: COPD, hypercholesterolemia, hypertension, history of previous stroke. ALLERGIES: HYDROCODONE, WHICH CAUSES HALLUCINATION. MEDICATIONS: Carafate, Mary Kay-Colace, Mucinex, prednisone, Megace, Ecotrin, Lipitor, multivitamin, DuoNeb nebulizer, Protonix Lopressor, Symbicort inhaler, Zofran, Narcan, Milk of Magnesia, Senokot. PAST SURGICAL HISTORY: Infusaport was placed on December 20, 3 days ago. He had back surgery a long time ago. FAMILY HISTORY: Father from lung cancer. SOCIAL HISTORY: The patient used to smoke cigarettes 1.5 pack a day from age 11 until age 55. He does not drink alcohol. PHYSICAL EXAMINATION: GENERAL: This is a well developed, malnourished, frail white male in no apparent distress. VITAL SIGNS: Had temperature 98, heart rate 76, blood pressure 130/73, O2 saturation 94%. HEENT: PHILL, EOMI, anicteric. No oral lesions noted. NECK: Lymphadenopathy noted, mostly on the left side. PULMONARY: Lungs have decreased breath sounds on both sides. CARDIOVASCULAR: Regular rate and rhythm. ABDOMEN: Soft, diffusely tender. EXTREMITIES: Edema noted on both sides. NEUROLOGIC: Awake, alert, oriented x 3. SKIN: No significant lesions noted. ASSESSMENT: 1. Anaplastic large cell, non-Hodgkin's lymphoma, at least stage III. It is unclear whether he has any B symptoms, but this could be most likely given that he has significant weight loss, which is one of the symptoms of lymphoma. 2. Anorexia with weight loss and unable to eat food. The patient will need percutaneous endoscopic gastrostomy tube for nutrition. 3. Poor nutrition with hypoalbuminemia, with albumin of 1.5. 4. Leukocytosis, anemia and neutrophilia, most likely due to bone marrow involvement by the lymphoma until proven otherwise. 5. History of cerebrovascular accident. 6. Hypercholesterolemia. 7. Hypertension. 8. Chronic obstructive pulmonary disease. PLAN: I have reviewed his available records and I had an extensive discussion with the patient, his and other family members. One of the family members is an ICU nurse. We had an extensive discussion regarding the diagnosis, staging, treatment and prognosis of anaplastic large cell non-Hodgkin's lymphoma. We discussed that this is one of the peripheral T-cell lymphoma. We need to do the bone marrow aspirate and bone biopsy to properly stage him. If the bone marrow is involved by lymphoma, then he has stage IV. I will order HIV tests, SED rate and LDH. I have placed an order for invasive radiologist to do the bone marrow aspirate and biopsy and sent out for flow cytometry. I will check the uric acid as a baseline and start him on allopurinol for prophylaxis of tumor lysis syndrome. The patient is having difficulty holding the urine now when he wants to pee. He is so weak and can not hold the urinal and he gets wet. One of the family members, who is an ICU nurse, wanted him to have the Hay catheter. I discussed with them that will increase the risk for urinary tract infection, so I suggested that we should try condom catheter and see how it works. They agreed with that. I have discussed with the patient and the family regarding the risks, benefits and alternatives of the chemotherapy. We discussed some of the side effects of chemotherapy as well. I will ask the nurses to do the formal chemo teaching and get informed consent. My plan is to start CHOP chemotherapy tomorrow, after the PEG tube placement and the bone marrow biopsy. If for some reason it is too late in the day, then we will give him chemotherapy on Sunday. The patient and the family have asked several questions and these were answered to their satisfaction. Thank you for asking my opinion. MD ESPINOZA Ledesma/RADHA , 06:52 PM , 07:53 PM REMIGIO
[2017-12-24] MEDS: RESP: ALBUTEROL 2.5 MG/IPRATROPIUM 0.5 MG NEB (PRN) NEB ×3 (10:13→18:10)
--- NOTE | 2017-12-24 10:57 | RADRPT ---
EXAM DATE/TIME: 12/24/2017 10:34 [facility] COMPARISON: CHEST SINGLE AP, December 22, 2017, 23:14. INDICATIONS : Dyspnea MEDICAL HISTORY : Lymphoma. SURGICAL HISTORY : port for chemotherapy. ENCOUNTER: Initial ACUITY: 2 days PAIN SCORE: 0/10 LOCATION: Bilateral chest FINDINGS: Stable right IJ [id number]. Redemonstration of bilateral lower lung zone pleural-parenchymal disea se, right greater than left. Cardiomediastinal contours are stable. Remainder of the exam is unchange d. CONCLUSION: 1. Stable bilateral lower lobe air space consolidation and small pleural effusions, right worse than left. Miguel Ashton MD on December 24, 2017 at 10:54 Board Certified Radiologist. This report was verified electronically.
[2017-12-24] MEDS ORDERED: VANCOMYCIN INJ 1,250 MG in SODIUM CHLOR 0.9% 250 ML INJ 250 ML IV SCH (11:00)
[2017-12-24] MEDS ORDERED: PROPOFOL 200 MG/20 ML AMP IV ONE (12:00)
[2017-12-24] MEDS ORDERED: LIDOCAINE HCL 1% PF 5 ML SYRINGE OTHER ONE (12:00)
--- NOTE | 2017-12-24 12:13 | PD.ONC.PN ---
Subjective Subjective Remarks Afebrile overnight. patient resting in bed with at bedside. ready to go for PEG tube placement and bone marrow biopsy. had difficulty sleeping last night. no other complaints. Objective Data Date Time Temp Pulse Resp B/P (MAP) Pulse Ox O2 Delivery O2 Flow Rate FiO2 12/24/17 11:25 98.8 90 20 149/87 (107) 95 12/24/17 08:01 97.9 110 20 167/83 (111) 91 12/24/17 08:01 Nasal Cannula 3.00 12/24/17 08:00 92 Nasal Cannula 4.00 12/24/17 04:26 98.8 91 18 145/69 (94) 98 12/24/17 04:00 94 12/24/17 00:40 98.4 79 17 153/76 (101) 96 12/24/17 00:00 79 12/23/17 20:33 97.8 98 19 134/69 (90) 94 12/23/17 20:24 94 Nasal Cannula 3.00 12/23/17 20:24 107 12/23/17 19:49 93 Nasal Cannula 3.00 12/23/17 18:00 98.1 85 22 125/72 (89) 94 12/24/17 12/24/17 12/24/17 07:00 15:00 23:00 Intake Total 800 ml Output Total 200 ml Balance 600 ml Result Diagram: 12/23/17 1325 12/23/17 1325 Laboratory Results Laboratory Tests Test 12/23/17 13:25 12/24/17 04:20 12/24/17 09:12 White Blood Count 36.2 TH/MM3 Red Blood Count 3.20 MIL/MM3 Hemoglobin 9.3 GM/DL Hematocrit 26.6 % Mean Corpuscular Volume 83.0 FL Mean Corpuscular Hemoglobin 29.1 PG Mean Corpuscular Hemoglobin Concent 35.0 % Red Cell Distribution Width 17.8 % Platelet Count 411 TH/MM3 Mean Platelet Volume 7.0 FL Neutrophils (%) (Auto) 92.9 % Lymphocytes (%) (Auto) 3.6 % Monocytes (%) (Auto) 3.5 % Eosinophils (%) (Auto) 0.0 % Basophils (%) (Auto) 0.0 % Neutrophils # (Auto) 33.6 TH/MM3 Lymphocytes # (Auto) 1.3 TH/MM3 Monocytes # (Auto) 1.3 TH/MM3 Eosinophils # (Auto) 0.0 TH/MM3 Basophils # (Auto) 0.0 TH/MM3 CBC Comment AUTO DIFF Differential Total Cells Counted 100 Neutrophils % (Manual) 100 % Neutrophils # (Manual) 36.2 TH/MM3 Differential Comment FINAL DIFF MANUAL Platelet Estimate HIGH Platelet Morphology Comment NORMAL Blood Urea Nitrogen 21 MG/DL Creatinine 0.81 MG/DL Random Glucose 116 MG/DL Total Protein 5.3 GM/DL Albumin 1.5 GM/DL Calcium Level 8.6 MG/DL Alkaline Phosphatase 109 U/L Aspartate Amino Transf (AST/SGOT) 21 U/L Alanine Aminotransferase (ALT/SGPT) 40 U/L Total Bilirubin 0.5 MG/DL Sodium Level 140 MEQ/L Potassium Level 3.6 MEQ/L Chloride Level 105 MEQ/L Carbon Dioxide Level 29.6 MEQ/L Anion Gap 5 MEQ/L Estimat Glomerular Filtration Rate 93 ML/MIN Triglycerides Level 52 MG/DL Cholesterol Level 66 MG/DL LDL Cholesterol 28 MG/DL HDL Cholesterol 27.5 MG/DL Cholesterol/HDL Ratio 2.40 RATIO Vitamin B12 Level 1173 PG/ML Folate 13.2 NG/ML Free Thyroxine 1.41 NG/DL Thyroid Stimulating Hormone 3rd Gen 1.180 uIU/ML Erythrocyte Sedimentation Rate 67 mm/hr Uric Acid 3.5 MG/DL Lactate Dehydrogenase 163 U/L Lactic Acid Level 0.9 mmol/L Culture Results Microbiology Date/Time Source Procedure Growth Status 12/24/17 09:17 Blood Peripheral Aerobic Blood Culture Pending Received 12/24/17 09:17 Blood Peripheral Anaerobic Blood Culture Pending Received 12/24/17 09:12 Blood Peripheral Aerobic Blood Culture Pending Received 12/24/17 09:12 Blood Peripheral Anaerobic Blood Culture Pending Received Imaging Studies Last 24 hours Impressions Chest X-Ray 12/24/17 0000 Signed Impressions: Service Date/Time: Sunday, December 24, 2017 10:34 - CONCLUSION: 1. Stable bilateral lower lobe air space consolidation and small pleural effusions, right worse than left. Miguel Ashton MD Administered Medications Medications (Trade) Dose Ordered Sig/Candace Route PRN Reason Start Time Stop Time Status Last Admin Dose Admin Sodium Chloride (NS Flush) 2 ml BID IV FLUSH 12/22/17 21:00 12/24/17 08:21 Senna/Docusate Sodium (Mary Kay-Colace) 1 tab BID PO 12/22/17 21:00 12/23/17 20:35 Lorazepam (Ativan) 1 mg Q8H PRN PO MODERATE TO SEVERE ANXIETY 12/22/17 20:15 12/24/17 04:06 Albuterol/ Ipratropium (Duoneb Neb) 1 ampule Q4HR NEB PRN NEB SOB/WHEEZING 12/22/17 20:15 12/24/17 10:13 Zolpidem Tartrate (Ambien) 5 mg HS PRN PO INSOMNIA 12/22/17 20:15 12/23/17 20:35 Sucralfate (Carafate Liq) 1 gm ACHS PO 12/22/17 21:00 12/23/17 18:16 Prednisone (Deltasone) 5 mg DAILY PO 12/23/17 09:00 12/23/17 08:18 Pantoprazole Sodium (Protonix) 40 mg Q12HR PO 12/22/17 21:00 12/23/17 20:36 Metoprolol Tartrate (Lopressor) 50 mg Q12HR PO 12/22/17 21:00 12/24/17 08:15 Megestrol Acetate (Megace Liq) 800 mg DAILY PO 12/23/17 09:00 12/23/17 09:48 Docusate Sodium (Colace) 100 mg BID PO 12/22/17 21:00 12/23/17 08:19 Budesonide/ Formoterol Fumarate (Symbicort 160-4.5 Mcg Inh) 1 puff Q12HR INH 12/22/17 21:00 12/24/17 08:19 Aspirin (Ecotrin Ec) 81 mg DAILY PO 12/23/17 09:00 12/23/17 08:18 Atorvastatin Calcium (Lipitor) 80 mg DAILY PO 12/23/17 09:00 12/23/17 08:19 Multivitamins (Theragran) 1 tab DAILY PO 12/23/17 09:00 12/23/17 08:18 Guaifenesin/ Dextromethorphan (Robitussin Dm 200-20 Mg/10 ml Liq) 10 ml Q4H PRN PO cough interfering with rest 12/22/17 21:00 12/23/17 18:24 Sodium Chloride 1,000 ml @ 100 mls/hr Q10H IV 12/23/17 12:00 12/24/17 00:40 Albuterol/ Ipratropium (Duoneb Neb) 1 ampule Q4HR NEB NEB 12/23/17 12:00 12/24/17 07:59 Guaifenesin (Mucinex Er) 600 mg BID PO 12/23/17 21:00 12/23/17 20:35 Cefepime HCl 1000 mg/Sodium Chloride 100 ml @ 200 mls/hr Q8H IV 12/24/17 09:00 12/24/17 08:31 Objective Remarks GENERAL: Elderly male, lying supine in bed, appears weak and mildly dyspneic. SKIN: Warm and dry. HEAD: Normocephalic. EYES: No scleral icterus. No injection or drainage. NECK: Supple, trachea midline. CARDIOVASCULAR: +S1/S2, mildly tachycardic. RESPIRATORY: anterior clark with scattered rhonchi. GASTROINTESTINAL: Abdomen soft, non-tender, nondistended. EXTREMITIES: No cyanosis. NEUROLOGICAL: awake and alert, normal speech. 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 --unclear whether he has any B symptoms, but this could be most likely given that he has significant weight loss, which is one of the symptoms of lymphoma. --Leukocytosis, anemia and neutrophilia, most likely due to bone marrow involvement by the lymphoma until proven otherwise. (2) Malnutrition ICD Codes: E46 - Unspecified protein-calorie malnutrition Plan: --awaiting PEG tube placement. Assessment 72y/o male with newly diagnosed anaplastic large cell NHL. h/o COPD, hypercholesterolemia, hypertension, history of previous stroke. HPI: started 8 weeks ago with a cough mixed with greenish phlegm and shortness of breath. CT cap showed diffuse lymphadenopathy on both sides of the diaphragm. PET scan showed increased uptake in the lymph nodes involving the neck, chest, mediastinal and hilar area, retroperitoneum and pelvic lymph nodes. biopsy of the left neck mass=anaplastic large cell NHL echocardiogram, LVEF=55-70%. MUGA scan, showed EF of 60%. Attending Statement The exam, history, and the medical decision-making described in the above note were completed with the assistance of the mid-level provider. I reviewed and agree with the findings presented. I attest that I had a [id number] encounter with the patient on the same day, and personally performed and documented my assessment and findings in the medical record. No new c/o For PEG and BM bx today. CHOP chemo tomorrow D/W pt and Susy La Dec 24, 2017 12:13 Josy Suarez MD Dec 24, 2017 23:17
--- NOTE | 2017-12-24 15:38 | GIPROC ---
[facility] [address] [facility]. [facility], [address] EGD WITH PEG PROCEDURE REPORT EXAM DATE: 12/24/2017 PATIENT NAME: Gonzalo Dominguez MR#: [id number] BIRTHDATE: 1945 ATTENDING: Elvis Mak MD ORDER #: [id number] BAG FILLER MACHINE OPERATOR: Bijan Kwon and Andria Melton STATUS: inpatient INDICATIONS: The patient is a 72 yr old male here for an EGD with PEG due to placement of PEG PROCEDURE PERFORMED: EGD with PEG placement MEDICATIONS: None and Per Anesthesia. TOPICAL ANESTHETIC: none CONSENT: The patient understands the risks and benefits of the procedure and understands that these risks include, but are not limited to: sedation, allergic reaction, infection, perforation and/or bleeding. Alternative means of evaluation and treatment include, among others: physical exam, x-rays, and/or surgical intervention. The patient elects to proceed with this endoscopic procedure. medical equipment was checked for proper function. Hand hygiene and appropriate measures for infection prevention was taken. After the risks, benefits and alternatives of the procedure were thoroughly explained, Informed consent was verified, confirmed and timeout was successfully executed by the treatment team. The patient was anesthetized with topical anesthesia and the Pentax [id number] endoscope was introduced through the mouth and advanced to the second portion of the duodenum. The instrument was slowly withdrawn as the mucosa was fully examined. An ulcer was found in the first portion of the duodenum. Deep non bleeding . Biopsies of the antrum and body of the stomach were obtained and sent to pathology. Image was stored via computer. The stomach was then inflated with air, and by a combination of transillumination and manual palpation, the site for the gastrostomy tube placement was selected and marked on the anterior abdominal wall. The skin of the anterior abdomen was surgically prepped and draped with sterile towels. Utilizing strict sterile technique, the selected site was then anesthetized with 1% xylocaine by injection into the skin and subcutaneous tissue. A 1 cm incision was made through the skin and subcutaneous tissue, and the needle/cannula assembly was then passed through the abdominal wall and through the anterior wall of the stomach, maintaining visualization with the endoscope. A snare device previously placed through the instrument channel was then opened and placed around the cannula, the needle was removed, and the insertion wire was passed through the cannula and into the stomach lumen. The snare was then loosened from the cannula, and repositioned to snare the insertion wire. The snare was then pulled up to the endoscope distal tip, and the scope was then withdrawn bringing with it the snare and insertion wire. The insertion wire was then released from the snare, and then loop-attached to the Bard 20 Fr gastrostomy tube. Using the "pull technique", the G-tube was then pulled into place by traction on the insertion wire at the abdominal wall end. The G-tube insertion site was then cleansed once again, and the external bolster was placed over the tube to secure it to the abdominal wall. A sterile dressing was then applied, and the procedure terminated. no abnormalities The gastroscope was then slowly withdrawn and removed. ADVERSE EVENT: There were no complications. IMPRESSIONS: 1. An ulcer was found in the first portion of the duodenum 2. Otherwisw no abnormalities detected RECOMMENDATIONS: 1. PEG recomendations: 1- NPO for 6 hours except for meds 2- Flush PEG tube every 6 hours with water and after each PEG feeding 3- May resume regular diet in the morning 4- May use Ensure or Boost etc. for PEG tube feeding 2. Continue PPI 3. Await biopsy results. Biopsy results will not be ready for 7-10 days. If you don't hear from us in two weeks, call our office for biopsy results. REPEAT EXAM: procedure as needed Elvis Mak MD eSigned: Elvis Mak MD 12/24/2017 3:37 PM cc: PATIENT NAME: Gonzalo Dominguez MR#: [id number]
--- NOTE | 2017-12-24 19:14 | MB ---
cc: Lenin Salomon MD DATE OF CONSULT: 12/24/2017 REASON FOR CONSULTATION: Nils Hernández MD REASON FOR CONSULTATION: Pneumonia in immunosuppressed patient. HISTORY OF PRESENT ILLNESS: This is a 72-year-old white male who was diagnosed with lymphoma. The patient was admitted to [facility] where he underwent workup and plan was to give chemotherapy. Because of his insurance, he was transferred to [facility]. The patient was noted to have become ill 2 months ago. He was noted to have cough and he was given 3 rounds of oral antibiotics without improvement of the cough. Subsequent workup revealed mediastinal adenopathy and other areas of adenopathy, and a biopsy of the lesion of the neck came back showing lymphoma. During his stay at [facility], he had no fever. He was given antibiotics. An Infusaport was placed on 12/20 for anticipated chemotherapy. Patient states that he is extremely weak and he has absolutely no appetite. His notes that he was able to get up and go to the bathroom from the bed 4 days ago, but now he cannot even do that. He underwent PEG tube placement earlier today. Additional workup includes negative HIV test. Cultures of sputum and blood previously were negative. Chest x-ray on 12/22 shows bilateral basilar consolidation and small effusions, and repeated chest x-ray again today shows stable bilateral lower lobe airspace consolidation and small pleural effusions. The patient is coughing and sounds congested, but he is not brining up any sputum. He denies chest pain. This consultation is requested for treatment for pneumonia. PAST MEDICAL HISTORY: Stage IIIB anaplastic large cell lymphoma, COPD, hypertension, hyperlipidemia, history of CVA without residual deficits, nonsustained V-tach at [facility], neuropathy of the lower extremities, back surgery, Infusaport placement on 12/20/2017. ALLERGIES: HYDROCODONE. MEDICATIONS: Vancomycin, cefepime, Mucinex, allopurinol, prednisone, Megace, aspirin, Lipitor, multiple vitamin, Mary Kay-Colace, Carafate, Protonix, Colace, Symbicort, Robitussin DM, Ativan p.r.n. SOCIAL HISTORY: Patient is . Patient is a prior smoker. No alcohol use. No illicit drugs. FAMILY HISTORY: Significant for lung cancer in the patient's father. REVIEW OF SYSTEMS: Pertinents mentioned above. Patient has decreased appetite, fatigue, cough. PHYSICAL EXAMINATION: GENERAL: This is a frail-appearing slender male who is chronically ill appearing. VITAL SIGNS: Include temperature 98.9, BP 136/78, respirations 18, heart rate 84. HEENT: Head is atraumatic. Extraocular movements grossly intact. Pupils reactive to light, but constricted. No icterus. No conjunctival erythema. Oropharynx, moist mucosa without lesions. NECK: Supple without adenopathy or swelling. LUNGS: Rhonchi at both bases. HEART: Regular S1 and S2. No murmurs, rubs or gallops. ABDOMEN: Bowel sounds present, soft, nontender. RECTAL: Not performed. EXTREMITIES: No clubbing or cyanosis, 1+ edema of the lower extremities. SKIN: No diffuse rash. NEUROLOGIC: No gross focal finding. PSYCHIATRIC: Patient is calm and cooperative. LABORATORY DATA:: WBC 36.2, platelets 411, 92% neutrophils, hemoglobin 9.3. Creatinine 0.81, BUN 21, sodium 140. Liver function tests normal. Albumin 1.5. IMPRESSION: 1. Bibasilar lung infiltrates in patient with cough and immunosuppression secondary to lymphoma. 2. Lymphoma. 3. Leukocytosis likely secondary to lymphoma but at this time, cannot exclude infection. 4. Decreased nutrition in patient with anorexia and now post percutaneous endoscopic gastrostomy placement. RECOMMENDATIONS: 1. Continue cefepime. 2. Discontinue the vancomycin. 3. Monitor temperature and white blood cell count. 4. Sputum culture if he brings up any sputum. The cough that the patient has had may be unrelated to infection. It may indeed be related to the underlying problem with his lymphoma diagnosis. At this time, I do not have information about the exact antibiotics which were given before, but he has been through multiple courses of oral antibiotic without improvement or resolution of the cough. I will follow the patient's progress along with you and will make further recommendations upon followup. I think it is okay to proceed with giving his chemotherapy and we can always monitor with temperature, white blood cell count and clinical symptomatology. Thank you for this consultation. MD ROD Randall/NANDINI , 05:54 PM , 07:12 PM
[2017-12-24 19:54] LABS: BASOPHIL % 0.1 % (0.0-2.0); EOSINOPHIL % 0.1 % (0.0-4.0); HEMATOCRIT 27.2 % (39.0-51.0); LYMPH % 2.5 % (9.0-44.0); LYMPHOCYTE # 0.8 TH/MM3 (1.0-4.8); MEAN CELL VOLUME 84.8 FL (80.0-100.0); MEAN CORPUSCULAR HEMOGLOBIN 27.9 PG (27.0-34.0); MEAN CORPUSCULAR HGB CONC 32.9 % (32.0-36.0); MEAN PLATELET VOLUME 7.4 FL (7.0-11.0); MONO % 4.5 % (0.0-8.0); MONOCYTE # 1.4 TH/MM3 (0-0.9); NEUT % 92.8 % (16.0-70.0); PLATELET COUNT 412 TH/MM3 (150-450); RED BLOOD COUNT 3.21 MIL/MM3 (4.50-5.90); RED CELL DISTRIBUTION WIDTH 18.7 % (11.6-17.2); WHITE BLOOD COUNT 31.2 TH/MM3 (4.0-11.0)
[2017-12-24 20:03] LABS: INTERNATIONAL NORMALIZED RATIO 1.3 RATIO; PROTHROMBIN TIME - PATIENT 13.3 SEC (9.8-11.6)
[2017-12-24 20:14] LABS: ALBUMIN 1.4 GM/DL (3.4-5.0); AST (GOT) 16 U/L (15-37); BLOOD UREA NITROGEN 21 MG/DL (7-18); CALCIUM 8.5 MG/DL (8.5-10.1); CHLORIDE 107 MEQ/L (98-107); GLOMERULAR FILTRATION RATE 95 ML/MIN (>89); GLUCOSE,RANDOM 113 MG/DL (74-106); SODIUM (NA) 142 MEQ/L (136-145)
[2017-12-24 20:15] LABS: ALT (GPT) 34 U/L (12-78)
[2017-12-24 20:17] LABS: ALKALINE PHOSPHATASE 110 U/L (45-117); TOTAL BILIRUBIN ADULT 0.4 MG/DL (0.2-1.0); TOTAL PROTEIN 5.3 GM/DL (6.4-8.2)
--- NOTE | 2017-12-24 20:19 | EKG ---
Date Performed: 12/24/2017 Time Performed: 04:36:38 PTAGE: 72 years EKG: Sinus rhythm Possible anteroseptal infarct - age undetermined Compared to previous tracing, the patient has devel oped abnormal R wave transition and a possible anteroseptal infarct of indeterminant age Clinical cor relation will be important Abnormal ECG NO PREVIOUS TRACING DOCTOR: Makenna Soto Interpretating Date/Time 12/24/2017 20:17:27
[2017-12-24 20:58] LABS: BANDS 1 % (0-6); LYMPHOCYTES 2 % (9-44); MONOCYTES 3 % (0-8); NEUTROPHIL # MANUAL DIFF 29.6 TH/MM3 (1.8-7.7); POLYS (SEG NEUTROPHILS) 94 % (16-70)
[2017-12-24] MEDS: guaiFENesin/DEXTROMETHORPHAN 200 MG/20 MG/10 ML CUP PO PRN (21:48)
[2017-12-24] MEDS: ZOLPIDEM TARTRATE 5 MG TAB PO PRN (21:51)
[2017-12-25] VITALS (28 sets, daily range): BP systolic 118–163; BP diastolic 66–89; PULSE 74–114; RESP 16–28; TEMP 97.4–99.8; O2SAT 83–97
[2017-12-25] MEDS ORDERED: POTASSIUM CHLORIDE 20 MEQ CONTROLLED RELEASE TAB PO ONE (00:30)
[2017-12-25] MEDS ORDERED: FUROSEMIDE 40 MG/4 ML VIAL IV PUSH ONE (00:30)
[2017-12-25] MEDS: CEFEPIME INJ 1,000 MG in SODIUM CHLORIDE 0.9% INJ 100 ML IV SCH ×4 (00:38→21:06)
[2017-12-25] MEDS: LORazepam 1 MG TAB PO PRN ×2 (02:51→11:36)
[2017-12-25] MEDS: RESP: ALBUTEROL 2.5 MG/IPRATROPIUM 0.5 MG NEB (SCH) NEB ×5 (03:19→20:00)
[2017-12-25] MEDS: SODIUM CHLOR 0.9% 1000 ML INJ 1,000 ML IV SCH ×2 (04:00→16:59)
[2017-12-25 06:17] LABS: AUTOMATED NEUTROPHIL # 27.5 TH/MM3 (1.8-7.7); BASOPHIL % 0.1 % (0.0-2.0); HEMATOCRIT 26.9 % (39.0-51.0); HEMOGLOBIN 8.9 GM/DL (13.0-17.0); LYMPH % 2.1 % (9.0-44.0); LYMPHOCYTE # 0.6 TH/MM3 (1.0-4.8); MEAN CELL VOLUME 85.2 FL (80.0-100.0); MEAN CORPUSCULAR HEMOGLOBIN 28.2 PG (27.0-34.0); MEAN PLATELET VOLUME 7.9 FL (7.0-11.0); MONO % 4.8 % (0.0-8.0); MONOCYTE # 1.4 TH/MM3 (0-0.9); PLATELET COUNT 393 TH/MM3 (150-450); RED BLOOD COUNT 3.16 MIL/MM3 (4.50-5.90); RED CELL DISTRIBUTION WIDTH 18.6 % (11.6-17.2); WHITE BLOOD COUNT 29.6 TH/MM3 (4.0-11.0)
[2017-12-25 07:02] LABS: BICARBONATE 30.4 MEQ/L (21.0-32.0); CALCIUM 8.1 MG/DL (8.5-10.1); CREATININE 0.83 MG/DL (0.60-1.30)
--- NOTE | 2017-12-25 08:19 | HHI.PR ---
Subjective Remarks This is a pleasant 72 y/o male with Hypertension, Hyperlipidemia, COPD, peripheral Neuropathy with newly diagnosed anaplastic large cell lymphoma Initially admitted to [facility] on 12/13/17, due to difficulty to breath, received antibiotics, found Pneumonia, He also has had a lump on his left neck since August 2018 which was biopsied and showed anaplastic large cell lymphoma alk negative. The oncologist at [facility] recommended chemotherapy to begin as soon as possible and possible bone marrow aspiration but due to insurance concerns he had to be transferred to [facility] for further treatment. He sees an oncologist in [place] as an outpatient - Dr. Somers. He has seen ENT Dr. Thorne. Developed NSVT while at [facility]. patient seen in his bedroom awaiting for final disposition by Oncology, he is not eating well, will start him on IV fluids, TPN asked, PICC line, Bronchodilator, Mucolytic, Incentive spirometry, Structural Shop Helper evaluation, PEG tube placement, reviewed his Port placed last 12/20/17 and not ready to remove stitches, discussed with nurse Miss Vazquez and with his Mrs. Kalani Diaz. 12/24: Seen by GI specialist, scheduled for EGD and PEG tube placement for today , evaluated Chest X ray now in view of laboratory I decide to start him on antibiotics, Vancomycin and Cefepime, asked for blood cultures, Sputum culture, Legionella antigen, Pneumococcal antigen, Infectious disease consult, Lactic Acid stat. discussed with patient and his another relatives in the room. all questions answered. 12/25: Stable in his bedroom, in the presence of his , improving condition, as per Oncology to start Chemotherapy. no nausea, vomit or diarrhea. Objective Vital Signs Date Time Temp Pulse Resp B/P (MAP) Pulse Ox O2 Delivery O2 Flow Rate FiO2 12/25/17 08:05 83 12/25/17 08:05 94 Nasal Cannula 5.00 12/25/17 04:43 98.7 107 24 139/82 (101) 96 12/25/17 04:17 107 12/25/17 04:12 96 40 12/25/17 03:00 98 12/25/17 02:00 92 12/25/17 01:00 98 12/25/17 00:45 97 40 12/25/17 00:30 95 Bi-Pap 12/25/17 00:09 92 12/24/17 23:30 97.5 92 30 139/82 (101) 95 12/24/17 23:00 94 12/24/17 22:00 92 12/24/17 21:00 84 12/24/17 20:31 95 Nasal Cannula 4.00 12/24/17 20:03 105 12/24/17 20:00 97.7 104 22 140/75 (96) 96 12/24/17 20:00 96 Nasal Cannula 3.00 12/24/17 19:00 114 12/24/17 19:00 114 12/24/17 18:00 104 12/24/17 17:00 102 12/24/17 16:20 98.9 84 18 136/78 (97) 96 12/24/17 15:42 97.8 82 20 112/67 (82) 94 12/24/17 11:25 98.8 90 20 149/87 (107) 95 12/24/17 10:00 84 12/24/17 09:00 78 I/O 12/24/17 12/24/17 12/24/17 12/25/17 12/25/17 12/25/17 07:00 15:00 23:00 07:00 15:00 23:00 Intake Total 800 ml 200 ml 100 ml Output Total 200 ml 325 ml 2250 ml Balance 600 ml -125 ml -2150 ml Intake Oral 200 ml IV Total 600 ml 100 ml Other 200 ml Output Urine Total 200 ml 325 ml 2250 ml # Voids 1 Result Diagram: 12/25/17 0445 12/25/17 0445 Imaging Last Impressions Chest X-Ray 12/24/17 0000 Signed Impressions: Service Date/Time: Sunday, December 24, 2017 10:34 - CONCLUSION: 1. Stable bilateral lower lobe air space consolidation and small pleural effusions, right worse than left. Miguel Ashton MD Procedures PEG tube placement. Other Results Laboratory Tests Test 12/23/17 13:25 12/24/17 04:20 12/24/17 09:12 12/24/17 19:30 Hemoglobin A1c 6.0 % Triglycerides Level 52 MG/DL Cholesterol Level 66 MG/DL LDL Cholesterol 28 MG/DL HDL Cholesterol 27.5 MG/DL Cholesterol/HDL Ratio 2.40 RATIO Vitamin B12 Level 1173 PG/ML Folate 13.2 NG/ML Free Thyroxine 1.41 NG/DL Thyroid Stimulating Hormone 3rd Gen 1.180 uIU/ML Erythrocyte Sedimentation Rate 67 mm/hr Lactate Dehydrogenase 163 U/L HIV (1&2) Antibody NEGATIVE Lactic Acid Level 0.9 mmol/L Differential Total Cells Counted 100 Neutrophils % (Manual) 94 % Band Neutrophils % 1 % Lymphocytes % 2 % Monocytes % 3 % Neutrophils # (Manual) 29.6 TH/MM3 Platelet Estimate HIGH Platelet Morphology Comment NORMAL Prothrombin Time 13.3 SEC Prothromb Time International Ratio 1.3 RATIO Activated Partial Thromboplast Time 26.4 SEC Blood Urea Nitrogen 21 MG/DL Creatinine 0.80 MG/DL Random Glucose 113 MG/DL Total Protein 5.3 GM/DL Albumin 1.4 GM/DL Calcium Level 8.5 MG/DL Alkaline Phosphatase 110 U/L Aspartate Amino Transf (AST/SGOT) 16 U/L Alanine Aminotransferase (ALT/SGPT) 34 U/L Total Bilirubin 0.4 MG/DL Sodium Level 142 MEQ/L Potassium Level 3.6 MEQ/L Chloride Level 107 MEQ/L Carbon Dioxide Level 28.0 MEQ/L Test 12/25/17 04:45 White Blood Count 29.6 TH/MM3 Red Blood Count 3.16 MIL/MM3 Hemoglobin 8.9 GM/DL Hematocrit 26.9 % Mean Corpuscular Volume 85.2 FL Mean Corpuscular Hemoglobin 28.2 PG Mean Corpuscular Hemoglobin Concent 33.0 % Red Cell Distribution Width 18.6 % Platelet Count 393 TH/MM3 Mean Platelet Volume 7.9 FL Neutrophils (%) (Auto) 93.0 % Lymphocytes (%) (Auto) 2.1 % Monocytes (%) (Auto) 4.8 % Eosinophils (%) (Auto) 0.0 % Basophils (%) (Auto) 0.1 % Neutrophils # (Auto) 27.5 TH/MM3 Lymphocytes # (Auto) 0.6 TH/MM3 Monocytes # (Auto) 1.4 TH/MM3 Eosinophils # (Auto) 0.0 TH/MM3 Basophils # (Auto) 0.0 TH/MM3 CBC Comment DIFF FINAL Differential Comment Blood Urea Nitrogen 20 MG/DL Creatinine 0.83 MG/DL Random Glucose 114 MG/DL Calcium Level 8.1 MG/DL Uric Acid 3.8 MG/DL Sodium Level 143 MEQ/L Potassium Level 3.3 MEQ/L Chloride Level 106 MEQ/L Carbon Dioxide Level 30.4 MEQ/L Anion Gap 7 MEQ/L Estimat Glomerular Filtration Rate 91 ML/MIN Objective Remarks GENERAL: This is a thin pleasant older male patient, in no apparent distress. SKIN: No rashes. Cool and dry. Right chest wall portacath. HEAD: Atraumatic. Normocephalic. EYES: No scleral icterus. No injection or drainage. ENT: Nose without bleeding, purulent drainage. NECK: Trachea midline. No JVD. Left supraclavicular lymphadenopathy palpated, fixed. CARDIOVASCULAR: Regular rate and rhythm without murmurs, gallops, or rubs. RESPIRATORY: Breath sounds diminished at bases equal bilaterally. No wheezes, rales, or rhonchi. Mild tachypnea noted. GASTROINTESTINAL: Abdomen soft, non-tender, nondistended. No guarding. MUSCULOSKELETAL: Extremities without clubbing, cyanosis, or edema. No calf tenderness. NEUROLOGICAL: Awake and alert. Motor and sensory grossly within normal limits. Normal speech. . Medications and IVs Current Medications Medications (Trade) Dose Ordered Sig/Candace Route Start Time Stop Time Status Last Admin (NS Flush) 2 ml UNSCH PRN IV FLUSH 12/22/17 18:15 (NS Flush) 2 ml BID IV FLUSH 12/22/17 21:00 12/24/17 08:21 (Zofran Inj) 4 mg Q6H PRN IVP 12/22/17 18:15 (Narcan Inj) 0.4 mg UNSCH PRN IV PUSH 12/22/17 18:15 (Mary Kay-Colace) 1 tab BID PO 12/22/17 21:00 12/23/17 20:35 (Milk Of Magnesia Liq) 30 ml Q12H PRN PO 12/22/17 18:15 (Senokot) 17.2 mg Q12H PRN PO 12/22/17 18:15 (Lactulose Liq) 30 ml DAILY PRN PO 12/22/17 18:15 (Ativan) 1 mg Q8H PRN PO 12/22/17 20:15 12/25/17 02:51 (Duoneb Neb) 1 ampule Q4HR NEB PRN NEB 12/22/17 20:15 12/24/17 18:10 (Ambien) 5 mg HS PRN PO 12/22/17 20:15 12/24/17 21:51 (Carafate Liq) 1 gm ACHS PO 12/22/17 21:00 12/24/17 19:56 (Deltasone) 5 mg DAILY PO 12/23/17 09:00 12/23/17 08:18 (Protonix) 40 mg Q12HR PO 12/22/17 21:00 12/24/17 19:56 (Lopressor) 50 mg Q12HR PO 12/22/17 21:00 12/24/17 19:59 (Megace Liq) 800 mg DAILY PO 12/23/17 09:00 12/23/17 09:48 (Colace) 100 mg BID PO 12/22/17 21:00 12/23/17 08:19 (Symbicort 160-4.5 Mcg Inh) 1 puff Q12HR INH 12/22/17 21:00 12/24/17 19:56 (Ecotrin Ec) 81 mg DAILY PO 12/23/17 09:00 12/23/17 08:18 (Lipitor) 80 mg DAILY PO 12/23/17 09:00 12/23/17 08:19 (Theragran) 1 tab DAILY PO 12/23/17 09:00 12/23/17 08:18 (Heparin Central Flush) 500 units UNSCH IV FLUSH 12/22/17 20:30 (NS Flush) 5 ml UNSCH PRN IVF 12/22/17 20:30 (Heparin Central Flush) 250 units UNSCH PRN IV FLUSH 12/22/17 20:30 (D50w (Vial) Inj) 50 ml UNSCH PRN IV PUSH 12/22/17 20:30 (Glucagon Inj) 1 mg UNSCH PRN OTHER 12/22/17 20:30 (NovoLOG SUPPLEMENTAL SCALE) 1 ACHS SLIDING SCALE SQ 12/22/17 21:00 (Robitussin Dm 200-20 Mg/10 ml Liq) 10 ml Q4H PRN PO 12/22/17 21:00 12/24/17 21:48 (Percocet 5-325 Mg) 1 tab Q4H PRN PO 12/22/17 23:00 Sodium Chloride 1,000 ml @ 100 mls/hr Q10H IV 12/23/17 12:00 12/24/17 17:24 (Duoneb Neb) 1 ampule Q4HR NEB NEB 12/23/17 12:00 12/25/17 07:59 (Mucinex Er) 600 mg BID PO 12/23/17 21:00 12/24/17 19:55 (Zyloprim) 300 mg NOW PO 12/23/17 16:00 01/22/18 17:00 Cefepime HCl 1000 mg/Sodium Chloride 100 ml @ 200 mls/hr Q8H IV 12/24/17 09:00 12/25/17 00:38 A/P Assessment and Plan (1) 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 Diaz is a 72 y/o male with a history of newly diagnosed anaplastic large cell lymphoma who was transferred from [facility] sent to our facility to continue his management. due to insurance reasons. Anaplastic large cell lymphoma ALK negative, Awaiting real estate management specialist for management. Port evaluated stitches not ready for removal. - Pain medicine, real estate management specialist consulted, Zofran for nausea and vomit, IV fluids, Consult medical oncology - appreciate assistance with treatment - IV fluids, TPN asked, PICC line, Bronchodilator, Mucolytic, Incentive spirometry, Structural Shop Helper evaluation, PEG tube placement, reviewed his Port placed last 12/20/17 and not ready to remove stitches, discussed with nurse Miss Vazquez and with his Mrs. Kalani Diaz. as per Oncology to start Chemotherapy today. COPD - Supplemental oxygen as needed - Continue Proventil inhalers - Bronchodilator, Mucolytic and incentive spirometry. - Continue prednisone 5 mg by mouth daily, the patient may have this Leukocytosis secondary to Steroid use, but he has bilateral lower lobe consolidations, not transferred with antibiotics, seen by Infectious disease, considered for possible Lymphoma instead of real infection, removed Vancomycin and continue Cefepime. Anxiety - Continue lorazepam 1 mg by mouth every 8 hours when necessary for moderate to severe anxiety Hyperlipidemia - Continue home atorvastatin 80 mg by mouth daily Hypertension - Continue metoprolol 50 mg by mouth every 12 hours Steroid-induced hyperglycemia - We'll continue Accu-Cheks before meals and at bedtime with low-dose NovoLog sliding scale coverage - Monitor trends and blood glucose levels and adjust treatments accordingly Hx of NSVT at [facility] per record review - continuous cardiac telemetry to monitor for dysrhythmia - patient will need stress test as an outpatient at some point in time - nuclear med MUGA scan showed EF 81% at [facility] - Denies chest pain DVT prophylaxis - SCDs . Discussed Condition With Patient and his in the room. Discharge Planning Once Cleared by Specialists. Nils Nichols MD Dec 25, 2017 08:19
[2017-12-25] MEDS: SODIUM CHLORIDE 0.9% FLUSH 10 ML FLUSH IV FLUSH SCH ×2 (08:36→20:19)
[2017-12-25] MEDS: INSULIN ASPART SUPPLEMENTAL SCALE SQ SCH ×4 (08:36→21:00)
[2017-12-25] MEDS: DOCUSATE SODIUM 50 MG/SENNA 8.6 MG TAB PO SCH ×2 (08:37→20:19)
[2017-12-25] MEDS: predniSONE 5 MG TAB PO SCH (08:37)
[2017-12-25] MEDS: DOCUSATE SODIUM 100 MG CAP PO SCH ×2 (08:37→20:19)
[2017-12-25] MEDS: SUCRALFATE 1 GM/10 ML CUP PO SCH ×4 (08:37→20:19)
[2017-12-25] MEDS: MEGESTROL ACETATE SUSP 400 MG/10 ML CUP PO SCH (08:37)
[2017-12-25] MEDS: PANTOPRAZOLE SOD 40 MG DELAYED RELEASE TAB PO SCH ×2 (08:37→20:20)
[2017-12-25] MEDS: METOPROLOL TARTRATE 50 MG TAB PO SCH ×2 (08:38→20:19)
[2017-12-25] MEDS: BUDESONIDE-FORMOTEROL 160/4.5 MCG INHALER INH SCH ×2 (08:38→20:19)
[2017-12-25] MEDS: MULTIVITAMIN TAB PO SCH (08:38)
[2017-12-25] MEDS: guaiFENesin E.R. 600 MG TAB PO SCH ×2 (08:38→20:19)
[2017-12-25] MEDS: ASPIRIN EC 81 MG TABEC PO SCH (08:38)
[2017-12-25] MEDS: ATORVASTATIN 80 MG TAB PO SCH (09:00)
[2017-12-25] MEDS ORDERED: methylPREDNISolone SOD SUCC 125 MG/2 ML VIAL IV STA (09:04)
[2017-12-25] MEDS ORDERED: methylPREDNISolone SO SUCC INJ 1,000 MG in DEXTROSE 5% IN WATER 100ML INJ 100 ML IV ONE ×2 (09:30)
[2017-12-25] MEDS ORDERED: IOHEXOL 350 MG/ML 10 ML VIAL (for RAD DIAG) IVCONTRAST ONE (09:38)
--- NOTE | 2017-12-25 09:49 | RADRPT ---
EXAM DATE/TIME: 12/25/2017 09:26 [facility] COMPARISON: No previous studies available for comparison. INDICATIONS : Shortness of breath. Cough. IV CONTRAST: 72 cc Omnipaque 350 (iohexol) IV RADIATION DOSE: 3.91 CTDIvol (mGy) MEDICAL HISTORY : Chronic obstructive pulmonary disease. Cerebrovascular disease. Hypertension.Lymphoma SURGICAL HISTORY : None. ENCOUNTER: Initial ACUITY: 1 day PAIN SCALE: 0/10 LOCATION: chest TECHNIQUE: Volumetric scanning of the chest was performed using a pulmonary embolism protocol MIP images were re constructed. Using automated exposure control and adjustment of the mA and/or kV according to patien t size, radiation dose was kept as low as reasonably achievable to obtain optimal diagnostic quality images. DICOM format image data is available electronically for review and comparison. Follow-up recommendations for detected pulmonary nodules are based at a minimum on nodule size and pa tient risk factors according to Fleischner Society Guidelines. FINDINGS: PULMONARY ARTERIES: No filling defects are seen in the pulmonary arteries through the segmental level. LUNGS: Airspace consolidation in the lung bases bilaterally. 8mm nodule in the right middle lobe. PLEURAE: Moderate to large bilateral pleural effusions. MEDIASTINUM: Slightly prominent mediastinal and bilateral hilar nodes. Heart is grossly unremarkable without signi ficant pericardial effusion. Mild coronary artery calcifications. MUSCULOSKELETAL: Within normal limits for patient age. MISCELLANEOUS: Leaflets upper abdomen demonstrates a gastrostomy catheter in place. Partially imaged prominent peron eal nodes surrounding the celiac and SMA origins. CONCLUSION: 1. No CT evidence for pulmonary artery embolism. 2. Moderate to large bilateral pleural effusions with associated compressive atelectasis at the lung bases. 3. 8mm nodule in the right middle lobe. Followup CT examination may be performed at 6 months to docum ent stability if this has not been evaluated previously. 4. Very mildly prominent mediastinal and hilar nodes and partially imaged upper abdominal lymphadenop athy in this patient with history of lymphoma. Miguel Ashton MD on December 25, 2017 at 9:38 Board Certified Radiologist. This report was verified electronically.
--- NOTE | 2017-12-25 10:03 | PD.ONC.PN ---
Subjective Subjective Remarks Afebrile overnight. Patient had labored breathing overnight per nursing staff. He denies chest pain. at bedside. Objective Data Date Time Temp Pulse Resp B/P (MAP) Pulse Ox O2 Delivery O2 Flow Rate FiO2 12/25/17 08:05 83 12/25/17 08:05 94 Nasal Cannula 5.00 12/25/17 04:43 98.7 107 24 139/82 (101) 96 12/25/17 04:17 107 12/25/17 04:12 96 40 12/25/17 03:00 98 12/25/17 02:00 92 12/25/17 01:00 98 12/25/17 00:45 97 40 12/25/17 00:30 95 Bi-Pap 12/25/17 00:09 92 12/24/17 23:30 97.5 92 30 139/82 (101) 95 12/24/17 23:00 94 12/24/17 22:00 92 12/24/17 21:00 84 12/24/17 20:31 95 Nasal Cannula 4.00 12/24/17 20:03 105 12/24/17 20:00 97.7 104 22 140/75 (96) 96 12/24/17 20:00 96 Nasal Cannula 3.00 12/24/17 19:00 114 12/24/17 19:00 114 12/24/17 18:00 104 12/24/17 17:00 102 12/24/17 16:20 98.9 84 18 136/78 (97) 96 12/24/17 15:42 97.8 82 20 112/67 (82) 94 12/24/17 11:25 98.8 90 20 149/87 (107) 95 12/24/17 10:00 84 12/25/17 12/25/17 12/25/17 07:00 15:00 23:00 Intake Total 100 ml Output Total 2250 ml Balance -2150 ml Result Diagram: 12/25/1744412/25/17444 Laboratory Results Laboratory Tests Test 12/24/17 19:30 12/25/17 04:45 White Blood Count 31.2 TH/MM3 29.6 TH/MM3 Red Blood Count 3.21 MIL/MM3 3.16 MIL/MM3 Hemoglobin 9.0 GM/DL 8.9 GM/DL Hematocrit 27.2 % 26.9 % Mean Corpuscular Volume 84.8 FL 85.2 FL Mean Corpuscular Hemoglobin 27.9 PG 28.2 PG Mean Corpuscular Hemoglobin Concent 32.9 % 33.0 % Red Cell Distribution Width 18.7 % 18.6 % Platelet Count 412 TH/MM3 393 TH/MM3 Mean Platelet Volume 7.4 FL 7.9 FL Neutrophils (%) (Auto) 92.8 % 93.0 % Lymphocytes (%) (Auto) 2.5 % 2.1 % Monocytes (%) (Auto) 4.5 % 4.8 % Eosinophils (%) (Auto) 0.1 % 0.0 % Basophils (%) (Auto) 0.1 % 0.1 % Neutrophils # (Auto) 29.0 TH/MM3 27.5 TH/MM3 Lymphocytes # (Auto) 0.8 TH/MM3 0.6 TH/MM3 Monocytes # (Auto) 1.4 TH/MM3 1.4 TH/MM3 Eosinophils # (Auto) 0.0 TH/MM3 0.0 TH/MM3 Basophils # (Auto) 0.0 TH/MM3 0.0 TH/MM3 CBC Comment AUTO DIFF DIFF FINAL Differential Total Cells Counted 100 Neutrophils % (Manual) 94 % Band Neutrophils % 1 % Lymphocytes % 2 % Monocytes % 3 % Neutrophils # (Manual) 29.6 TH/MM3 Differential Comment FINAL DIFF MANUAL Platelet Estimate HIGH Platelet Morphology Comment NORMAL Prothrombin Time 13.3 SEC Prothromb Time International Ratio 1.3 RATIO Activated Partial Thromboplast Time 26.4 SEC Blood Urea Nitrogen 21 MG/DL 20 MG/DL Creatinine 0.80 MG/DL 0.83 MG/DL Random Glucose 113 MG/DL 114 MG/DL Total Protein 5.3 GM/DL Albumin 1.4 GM/DL Calcium Level 8.5 MG/DL 8.1 MG/DL Alkaline Phosphatase 110 U/L Aspartate Amino Transf (AST/SGOT) 16 U/L Alanine Aminotransferase (ALT/SGPT) 34 U/L Total Bilirubin 0.4 MG/DL Sodium Level 142 MEQ/L 143 MEQ/L Potassium Level 3.6 MEQ/L 3.3 MEQ/L Chloride Level 107 MEQ/L 106 MEQ/L Carbon Dioxide Level 28.0 MEQ/L 30.4 MEQ/L Anion Gap 7 MEQ/L 7 MEQ/L Estimat Glomerular Filtration Rate 95 ML/MIN 91 ML/MIN Uric Acid 3.8 MG/DL Culture Results Microbiology Date/Time Source Procedure Growth Status 12/24/17 09:17 Blood Peripheral Aerobic Blood Culture Pending Received 12/24/17 09:17 Blood Peripheral Anaerobic Blood Culture Pending Received 12/24/17 09:12 Blood Peripheral Aerobic Blood Culture Pending Received 12/24/17 09:12 Blood Peripheral Anaerobic Blood Culture Pending Received Imaging Studies Last [address] Angiography 12/25/17 0000 Signed Impressions: Service Date/Time: Monday, December 25, 2017 09:26 - CONCLUSION: 1. No CT evidence for pulmonary artery embolism. 2. Moderate to large bilateral pleural effusions with associated compressive atelectasis at the lung bases. 3. 8mm nodule in the right middle lobe. Followup CT examination may be performed at 6 months to document stability if this has not been evaluated previously. 4. Very mildly prominent mediastinal and hilar nodes and partially imaged upper abdominal lymphadenopathy in this patient with history of lymphoma. Miguel Ashton MD Administered Medications Medications (Trade) Dose Ordered Sig/Candace Route PRN Reason Start Time Stop Time Status Last Admin Dose Admin Sodium Chloride (NS Flush) 2 ml BID IV FLUSH 12/22/17 21:00 12/25/17 08:36 Senna/Docusate Sodium (Mary Kay-Colace) 1 tab BID PO 12/22/17 21:00 12/25/17 08:37 Lorazepam (Ativan) 1 mg Q8H PRN PO MODERATE TO SEVERE ANXIETY 12/22/17 20:15 12/25/17 02:51 Albuterol/ Ipratropium (Duoneb Neb) 1 ampule Q4HR NEB PRN NEB SOB/WHEEZING 12/22/17 20:15 12/24/17 18:10 Zolpidem Tartrate (Ambien) 5 mg HS PRN PO INSOMNIA 12/22/17 20:15 12/24/17 21:51 Sucralfate (Carafate Liq) 1 gm ACHS PO 12/22/17 21:00 12/25/17 08:37 Prednisone (Deltasone) 5 mg DAILY PO 12/23/17 09:00 12/25/17 08:37 Pantoprazole Sodium (Protonix) 40 mg Q12HR PO 12/22/17 21:00 12/25/17 08:37 Metoprolol Tartrate (Lopressor) 50 mg Q12HR PO 12/22/17 21:00 12/25/17 08:38 Megestrol Acetate (Megace Liq) 800 mg DAILY PO 12/23/17 09:00 12/25/17 08:37 Docusate Sodium (Colace) 100 mg BID PO 12/22/17 21:00 12/25/17 08:37 Budesonide/ Formoterol Fumarate (Symbicort 160-4.5 Mcg Inh) 1 puff Q12HR INH 12/22/17 21:00 12/25/17 08:38 Aspirin (Ecotrin Ec) 81 mg DAILY PO 12/23/17 09:00 12/25/17 08:38 Atorvastatin Calcium (Lipitor) 80 mg DAILY PO 12/23/17 09:00 12/23/17 08:19 Multivitamins (Theragran) 1 tab DAILY PO 12/23/17 09:00 12/25/17 08:38 Insulin Aspart (NovoLOG SUPPLEMENTAL SCALE) 1 ACHS SLIDING SCALE SQ 12/22/17 21:00 12/25/17 08:36 Guaifenesin/ Dextromethorphan (Robitussin Dm 200-20 Mg/10 ml Liq) 10 ml Q4H PRN PO cough interfering with rest 12/22/17 21:00 12/24/17 21:48 Sodium Chloride 1,000 ml @ 100 mls/hr Q10H IV 12/23/17 12:00 12/24/17 17:24 Albuterol/ Ipratropium (Duoneb Neb) 1 ampule Q4HR NEB NEB 12/23/17 12:00 12/25/17 07:59 Guaifenesin (Mucinex Er) 600 mg BID PO 12/23/17 21:00 12/25/17 08:38 Cefepime HCl 1000 mg/Sodium Chloride 100 ml @ 200 mls/hr Q8H IV 12/24/17 09:00 12/25/17 08:37 Objective Remarks GENERAL: Elderly male, supine in bed, appears fatigued, dyspneic. SKIN: Warm and dry. HEAD: Normocephalic. EYES: No scleral icterus. No injection or drainage. NECK: Supple, trachea midline. CARDIOVASCULAR: +S1/S2, tachycardic, RESPIRATORY: scattered rhonchi. GASTROINTESTINAL: Abdomen soft, non-tender, nondistended. EXTREMITIES: No cyanosis. 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 +LAD, PE. dyspnea likely d/t lymphoma. will give Solu-medrol 1g IV and start CHOP today. Anaplastic large cell, non-Hodgkin's lymphoma, at least stage III. --unclear whether he has any B symptoms, but this could be most likely given that he has significant weight loss, which is one of the symptoms of lymphoma. --Leukocytosis, anemia and neutrophilia, most likely due to bone marrow involvement by the lymphoma until proven otherwise. (2) Malnutrition ICD Codes: E46 - Unspecified protein-calorie malnutrition Plan: --s/p PEG tube placement, tolerating tube feeds. Assessment 72y/o male with newly diagnosed anaplastic large cell NHL. h/o COPD, hypercholesterolemia, hypertension, history of previous stroke. HPI: started 8 weeks ago with a cough mixed with greenish phlegm and shortness of breath. CT cap showed diffuse lymphadenopathy on both sides of the diaphragm. PET scan showed increased uptake in the lymph nodes involving the neck, chest, mediastinal and hilar area, retroperitoneum and pelvic lymph nodes. biopsy of the left neck mass=anaplastic large cell NHL echocardiogram, LVEF=55-70%. MUGA scan, showed EF of 60%. Attending Statement The exam, history, and the medical decision-making described in the above note were completed with the assistance of the mid-level provider. I reviewed and agree with the findings presented. I attest that I had a [id number] encounter with the patient on the same day, and personally performed and documented my assessment and findings in the medical record. Resp distress. Going down for CTA chest now. Solumedrol 1 gm IV now. CHOP chemo today after the BM bx . s/p PEG. TF on hold for the procedure. Susy La Dec 25, 2017 10:03 Josy Suarez MD Dec 25, 2017 23:02
[2017-12-25] MEDS: guaiFENesin/DEXTROMETHORPHAN 200 MG/20 MG/10 ML CUP PO PRN (10:25)
[2017-12-25] MEDS ORDERED: SODIUM CHLOR 0.9% 250 ML INJ 250 ML IV ONE (11:00)
[2017-12-25] MEDS ORDERED: BENZONATATE 100 MG CAP PO PRN (12:00)
[2017-12-25] MEDS ORDERED: MIDAZOLAM HCL 2 MG/2 ML VIAL ONE (12:22)
[2017-12-25] MEDS ORDERED: GRANISETRON INJ 1 MG, DEXAMETHASONE INJ 20 MG in SODIUM CHLORIDE 0.9% INJ 50 ML IV ONE (13:30)
--- NOTE | 2017-12-25 13:31 | RADRPT ---
EXAM DATE/TIME: 12/25/2017 12:32 [facility] COMPARISON: No previous studies available for comparison. INDICATIONS : Lymphoma SEDATION TIME: 30 minutes BIOPSY SITE: Left ilium MEDICATION(S): 1.) 1.5 mg midazolam (Versed) IV 2.) 75 mg fentanyl (Sublimaze) IV DEVICE(S): 1.) 12 gauge On-Control needle MEDICAL HISTORY : Chronic obstructive pulmonary disease. Hypertension. Cerebrovascular disease. SURGICAL HISTORY : None. ENCOUNTER: Initial ACUITY: 1 day PAIN SCORE: 0/10 LOCATION: Left ilium A total of one core specimen(s) were obtained and sent to the laboratory for pathologic evaluation. PROCEDURE: 1. CT guided bone marrow biopsy. 2. Conscious sedation with continuous EKG and oximetry monitoring. 3. EKG and oximetry remained stable throughout the procedure. Prior to the procedure informed consent was obtained. Any appropriate prior imaging studies were rev iewed. Using automated exposure control and adjustment of the mA and/or kV according to patient size , radiation dose was kept as low as reasonably achievable to obtain optimal diagnostic quality images . DICOM format image data is available electronically for review and comparison. The site was prepped in a sterile fashion. Full sterile technique was used, including cap, mask, fran rile gloves and gown and a large sterile sheet. Hand hygiene and 2% chlorhexidine and/or betadine/al cohol prep was utilized per protocol for cutaneous antisepsis. The skin and subcutaneous tissues wer e infiltrated with local anesthetic solution. With CT guidance the previously identified target was localized. Biopsy was performed using the presc ribed needle as above. Following biopsy marrow aspiration was performed with repeat puncture. Adequa te hemostasis was obtained with compression at the puncture site. Follow-up CT scan reveals no hemorrhage. Conscious sedation was performed with the prescribed dosages and duration as above in the presence of an independent trained radiology nurse to assist in the monitoring of the patient. EKG and oximetry remained stable throughout the procedure. The patient tolerated the procedure well and there were no complications. The patient was sent to Radiology Outpatient Unit in stable condition. CONCLUSION: 1. Uncomplicated CT guided bone marrow aspirate. 2. Uncomplicated CT guided bone marrow biopsy. Lee Mijares MD on December 25, 2017 at 13:29 Board Certified Radiologist. This report was verified electronically.
[2017-12-25] MEDS ORDERED: vinCRIStine INJ 2 MG in SODIUM CHLORIDE 0.9% INJ 50 ML IV ONE (14:00)
[2017-12-25] MEDS ORDERED: DOXOrubicin HCL 10 MG/5 ML INJ IV PUSH ONE (14:00)
--- NOTE | 2017-12-25 14:43 | HHI.IDPN ---
Note Infectious Disease Note Patient just came back from bone marrow biopsy. He is sedated. Currently very somnolent. He feels weak. Noted to have had difficult time overnight with breathing. No acute distress. Afebrile. 72-year-old white male who was diagnosed with lymphoma. The patient was noted to have become ill 2 months ago. He was noted to have cough and he was given 3 rounds of oral antibiotics without improvement of the cough. Subsequent workup revealed mediastinal adenopathy and other areas of adenopathy, and a biopsy of the lesion of the neck came back showing lymphoma. During his stay at [facility], he had no fever. He was given antibiotics. An Infusaport was placed on 12/20 for anticipated chemotherapy. PAST MEDICAL HISTORY: Stage IIIB anaplastic large cell lymphoma, COPD, hypertension, hyperlipidemia, history of CVA without residual deficits, nonsustained V-tach at [facility], neuropathy of the lower extremities, back surgery, Infusaport placement on 12/20/2017. ALLERGIES: HYDROCODONE. MEDICATIONS: Current Medications Medications (Trade) Dose Ordered Sig/Candace Route PRN Reason Start Time Stop Time Status Last Admin Dose Admin Sodium Chloride (NS Flush) 2 ml UNSCH PRN IV FLUSH FLUSH AFTER USING IV ACCESS 12/22/17 18:15 Sodium Chloride (NS Flush) 2 ml BID IV FLUSH 12/22/17 21:00 12/25/17 08:36 Ondansetron HCl (Zofran Inj) 4 mg Q6H PRN IVP NAUSEA OR VOMITING 12/22/17 18:15 Naloxone HCl (Narcan Inj) 0.4 mg UNSCH PRN IV PUSH SEE LABEL COMMENTS 12/22/17 18:15 Senna/Docusate Sodium (Mary Kay-Colace) 1 tab BID PO 12/22/17 21:00 12/25/17 08:37 Magnesium Hydroxide (Milk Of Magnesia Liq) 30 ml Q12H PRN PO Mild constipation 12/22/17 18:15 Sennosides (Senokot) 17.2 mg Q12H PRN PO Moderate constipation 12/22/17 18:15 Lactulose (Lactulose Liq) 30 ml DAILY PRN PO SEVERE CONSITIPATION 12/22/17 18:15 Lorazepam (Ativan) 1 mg Q8H PRN PO MODERATE TO SEVERE ANXIETY 3/10/18 20:15 12/25/17 11:36 Albuterol/ Ipratropium (Duoneb Neb) 1 ampule Q4HR NEB PRN NEB SOB/WHEEZING 12/22/17 20:15 12/24/17 18:10 Zolpidem Tartrate (Ambien) 5 mg HS PRN PO INSOMNIA 12/22/17 20:15 12/24/17 21:51 Sucralfate (Carafate Liq) 1 gm ACHS PO 12/22/17 21:00 12/25/17 11:35 Pantoprazole Sodium (Protonix) 40 mg Q12HR PO 12/22/17 21:00 12/25/17 08:37 Metoprolol Tartrate (Lopressor) 50 mg Q12HR PO 12/22/17 21:00 12/25/17 08:38 Megestrol Acetate (Megace Liq) 800 mg DAILY PO 12/23/17 09:00 12/25/17 08:37 Docusate Sodium (Colace) 100 mg BID PO 12/22/17 21:00 12/25/17 08:37 Budesonide/ Formoterol Fumarate (Symbicort 160-4.5 Mcg Inh) 1 puff Q12HR INH 12/22/17 21:00 12/25/17 08:38 Aspirin (Ecotrin Ec) 81 mg DAILY PO 12/23/17 09:00 12/25/17 08:38 Atorvastatin Calcium (Lipitor) 80 mg DAILY PO 12/23/17 09:00 12/25/17 09:00 Multivitamins (Theragran) 1 tab DAILY PO 12/23/17 09:00 12/25/17 08:38 Heparin Sodium (Porcine) (Heparin Central Flush) 500 units UNSCH IV FLUSH 12/22/17 20:30 Sodium Chloride (NS Flush) 5 ml UNSCH PRN IVF SEE PROTOCOL 12/22/17 20:30 Heparin Sodium (Porcine) (Heparin Central Flush) 250 units UNSCH PRN IV FLUSH SEE PROTOCOL 12/22/17 20:30 Dextrose (D50w (Vial) Inj) 50 ml UNSCH PRN IV PUSH HYPOGLYCEMIA-SEE COMMENTS 12/22/17 20:30 Glucagon (Glucagon Inj) 1 mg UNSCH PRN OTHER HYPOGLYCEMIA-SEE COMMENTS 12/22/17 20:30 Insulin Aspart (NovoLOG SUPPLEMENTAL SCALE) 1 ACHS SLIDING SCALE SQ 12/22/17 21:00 12/25/17 11:36 Guaifenesin/ Dextromethorphan (Robitussin Dm 200-20 Mg/10 ml Liq) 10 ml Q4H PRN PO cough interfering with rest 12/22/17 21:00 12/25/17 10:25 Oxycodone/ Acetaminophen (Percocet 5-325 Mg) 1 tab Q4H PRN PO pain > 4 12/22/17 23:00 Sodium Chloride 1,000 ml @ 100 mls/hr Q10H IV 12/23/17 12:00 12/24/17 17:24 Albuterol/ Ipratropium (Duoneb Neb) 1 ampule Q4HR NEB NEB 12/23/17 12:00 12/25/17 11:43 Guaifenesin (Mucinex Er) 600 mg BID PO 12/23/17 21:00 12/25/17 08:38 Cefepime HCl 1000 mg/Sodium Chloride 100 ml @ 200 mls/hr Q8H IV 12/24/17 09:00 12/25/17 08:37 Benzonatate (Tessalon) 100 mg TID PRN PO cough 12/25/17 12:00 Cyclophosphamide 1485 mg/Sodium Chloride 575 ml @ 575 mls/hr ONCE ONCE IV 12/25/17 15:00 12/25/17 15:59 Allopurinol (Zyloprim) 300 mg DAILY PO 12/26/17 09:00 Allopurinol (Zyloprim) 300 mg ONCE ONCE PO 12/25/17 14:45 12/25/17 14:46 SOCIAL HISTORY: Patient is . Patient is a prior smoker. No alcohol use. No illicit drugs. OBJECTIVE: Vital Signs Date Time Temp Pulse Resp B/P (MAP) Pulse Ox O2 Delivery O2 Flow Rate FiO2 12/25/17 13:41 81 24 124/76 (92) 95 12/25/17 13:11 97.4 74 25 118/74 (89) 94 12/25/17 11:30 98.8 86 28 163/89 (113) 94 12/25/17 11:00 82 12/25/17 10:00 82 12/25/17 09:00 114 12/25/17 08:05 83 12/25/17 08:05 94 Nasal Cannula 5.00 12/25/17 08:03 99.8 104 28 148/77 (100) 90 12/25/17 08:03 Nasal Cannula 5.00 12/25/17 08:00 110 12/25/17 07:00 100 12/25/17 04:43 98.7 107 24 139/82 (101) 96 12/25/17 04:17 107 12/25/17 04:12 96 40 12/25/17 03:00 98 12/25/17 02:00 92 12/25/17 01:00 98 12/25/17 00:45 97 40 12/25/17 00:30 95 Bi-Pap 12/25/17 00:09 92 12/24/17 23:30 97.5 92 30 139/82 (101) 95 12/24/17 23:00 94 12/24/17 22:00 92 12/24/17 21:00 84 12/24/17 20:31 95 Nasal Cannula 4.00 12/24/17 20:03 105 12/24/17 20:00 97.7 104 22 140/75 (96) 96 12/24/17 20:00 96 Nasal Cannula 3.00 12/24/17 19:00 114 12/24/17 19:00 114 12/24/17 18:00 104 12/24/17 17:00 102 12/24/17 16:20 98.9 84 18 136/78 (97) 96 12/24/17 15:42 97.8 82 20 112/67 (82) 94 Laboratory Tests Test 12/24/17 04:20 12/24/17 19:30 12/25/17 04:45 Erythrocyte Sedimentation Rate 67 mm/hr White Blood Count 31.2 TH/MM3 29.6 TH/MM3 Red Blood Count 3.21 MIL/MM3 3.16 MIL/MM3 Hemoglobin 9.0 GM/DL 8.9 GM/DL Hematocrit 27.2 % 26.9 % Mean Corpuscular Volume 84.8 FL 85.2 FL Mean Corpuscular Hemoglobin 27.9 PG 28.2 PG Mean Corpuscular Hemoglobin Concent 32.9 % 33.0 % Red Cell Distribution Width 18.7 % 18.6 % Platelet Count 412 TH/MM3 393 TH/MM3 Mean Platelet Volume 7.4 FL 7.9 FL Neutrophils (%) (Auto) 92.8 % 93.0 % Lymphocytes (%) (Auto) 2.5 % 2.1 % Monocytes (%) (Auto) 4.5 % 4.8 % Eosinophils (%) (Auto) 0.1 % 0.0 % Basophils (%) (Auto) 0.1 % 0.1 % Neutrophils # (Auto) 29.0 TH/MM3 27.5 TH/MM3 Lymphocytes # (Auto) 0.8 TH/MM3 0.6 TH/MM3 Monocytes # (Auto) 1.4 TH/MM3 1.4 TH/MM3 Eosinophils # (Auto) 0.0 TH/MM3 0.0 TH/MM3 Basophils # (Auto) 0.0 TH/MM3 0.0 TH/MM3 CBC Comment AUTO DIFF DIFF FINAL Differential Total Cells Counted 100 Neutrophils % (Manual) 94 % Band Neutrophils % 1 % Lymphocytes % 2 % Monocytes % 3 % Neutrophils # (Manual) 29.6 TH/MM3 Differential Comment FINAL DIFF MANUAL Platelet Estimate HIGH Platelet Morphology Comment NORMAL Laboratory Tests Test 12/24/17 04:20 12/24/17 09:12 12/24/17 19:30 12/25/17 04:45 Uric Acid 3.5 MG/DL 3.8 MG/DL Lactate Dehydrogenase 163 U/L Lactic Acid Level 0.9 mmol/L Blood Urea Nitrogen 21 MG/DL 20 MG/DL Creatinine 0.80 MG/DL 0.83 MG/DL Random Glucose 113 MG/DL 114 MG/DL Total Protein 5.3 GM/DL Albumin 1.4 GM/DL Calcium Level 8.5 MG/DL 8.1 MG/DL Alkaline Phosphatase 110 U/L Aspartate Amino Transf (AST/SGOT) 16 U/L Alanine Aminotransferase (ALT/SGPT) 34 U/L Total Bilirubin 0.4 MG/DL Sodium Level 142 MEQ/L 143 MEQ/L Potassium Level 3.6 MEQ/L 3.3 MEQ/L Chloride Level 107 MEQ/L 106 MEQ/L Carbon Dioxide Level 28.0 MEQ/L 30.4 MEQ/L Anion Gap 7 MEQ/L 7 MEQ/L Estimat Glomerular Filtration Rate 95 ML/MIN 91 ML/MIN Microbiology Date/Time Source Procedure Growth Status 12/24/17 09:17 Blood Peripheral Aerobic Blood Culture - Preliminary NO GROWTH IN 1 DAY Resulted 12/24/17 09:17 Blood Peripheral Anaerobic Blood Culture - Preliminary NO GROWTH IN 1 DAY Resulted 12/24/17 09:12 Blood Peripheral Aerobic Blood Culture - Preliminary NO GROWTH IN 1 DAY Resulted 12/24/17 09:12 Blood Peripheral Anaerobic Blood Culture - Preliminary NO GROWTH IN 1 DAY Resulted IMAGING: Bone Biopsy CT 12/25/17 1142 Signed Impressions: Service Date/Time: Monday, December 25, 2017 12:32 - CONCLUSION: 1. Uncomplicated CT guided bone marrow aspirate. 2. Uncomplicated CT guided bone marrow biopsy. Lee Mijares MD CT Angiography 12/25/17 0000 Signed Impressions: Service Date/Time: Monday, December 25, 2017 09:26 - CONCLUSION: 1. No CT evidence for pulmonary artery embolism. 2. Moderate to large bilateral pleural effusions with associated compressive atelectasis at the lung bases. 3. 8mm nodule in the right middle lobe. Followup CT examination may be performed at 6 months to document stability if this has not been evaluated previously. 4. Very mildly prominent mediastinal and hilar nodes and partially imaged upper abdominal lymphadenopathy in this patient with history of lymphoma. Miguel Ashton MD Chest X-Ray 12/24/17 0000 Signed Impressions: Service Date/Time: Sunday, December 24, 2017 10:34 - CONCLUSION: 1. Stable bilateral lower lobe air space consolidation and small pleural effusions, right worse than left. Miguel Ashton MD PHYSICAL EXAMINATION: GENERAL: Slender male who is chronically ill appearing. NAD. HEENT: Head is atraumatic. Extraocular movements grossly intact. Pupils reactive to light, but constricted. No icterus. No conjunctival erythema. Oropharynx, moist mucosa without lesions. NECK: Supple without adenopathy or swelling. LUNGS: Breath sounds bilateral. HEART: Regular S1 and S2. No murmurs, rubs or gallops. ABDOMEN: Bowel sounds present, soft, nontender. EXTREMITIES: No clubbing or cyanosis, 1+ edema of the lower extremities. SKIN: No diffuse rash. NEUROLOGIC: No gross focal finding. PSYCHIATRIC: Patient is calm and cooperative. IMPRESSION: 1. Bibasilar lung infiltrates in patient with cough and immunosuppression secondary to lymphoma. 2. Lymphoma. 3. Leukocytosis likely secondary to lymphoma but at this time, cannot exclude infection. 4. Decreased nutrition in patient with anorexia and now post percutaneous endoscopic gastrostomy placement. RECOMMENDATIONS: 1. Continue cefepime. 2. Monitor temperature and white blood cell count. 3. Sputum culture if he brings up any sputum. 4. Monitor the clinical status. The cough that the patient has had may be unrelated to infection. It may indeed be related to the underlying problem with his lymphoma diagnosis. Because he is anticipated to receive chemotherapy, The blood counts should be monitored and also temperature and intervene for infection. Lenin Salomon MD Dec 25, 2017 14:43
[2017-12-25] MEDS ORDERED: ALLOPURINOL 300 MG TAB PO ONE (14:45)
--- NOTE | 2017-12-25 14:51 | HHI.GIFU ---
Subjective Remarks Pt resting in bed, back from bone marrow bx. TF was running earlier but disconnected for procedure; pt was tolerating. (Marcy Kasper) Objective Vitals I&O Vital Signs Date Time Temp Pulse Resp B/P (MAP) Pulse Ox O2 Delivery O2 Flow Rate FiO2 12/25/17 13:41 81 24 124/76 (92) 95 12/25/17 13:11 97.4 74 25 118/74 (89) 94 12/25/17 11:30 98.8 86 28 163/89 (113) 94 12/25/17 11:00 82 12/25/17 10:00 82 12/25/17 09:00 114 12/25/17 08:05 83 12/25/17 08:05 94 Nasal Cannula 5.00 12/25/17 08:03 99.8 104 28 148/77 (100) 90 12/25/17 08:03 Nasal Cannula 5.00 12/25/17 08:00 110 12/25/17 07:00 100 12/25/17 04:43 98.7 107 24 139/82 (101) 96 12/25/17 04:17 107 12/25/17 04:12 96 40 12/25/17 03:00 98 12/25/17 02:00 92 12/25/17 01:00 98 12/25/17 00:45 97 40 12/25/17 00:30 95 Bi-Pap 12/25/17 00:09 92 12/24/17 23:30 97.5 92 30 139/82 (101) 95 12/24/17 23:00 94 12/24/17 22:00 92 12/24/17 21:00 84 12/24/17 20:31 95 Nasal Cannula 4.00 12/24/17 20:03 105 12/24/17 20:00 97.7 104 22 140/75 (96) 96 12/24/17 20:00 96 Nasal Cannula 3.00 12/24/17 19:00 114 12/24/17 19:00 114 12/24/17 18:00 104 12/24/17 17:00 102 12/24/17 16:20 98.9 84 18 136/78 (97) 96 12/24/17 15:42 97.8 82 20 112/67 (82) 94 I/O 12/24/17 12/24/17 12/24/17 12/25/17 12/25/17 12/25/17 07:00 15:00 23:00 07:00 15:00 23:00 Intake Total 800 ml 200 ml 100 ml Output Total 200 ml 325 ml 2250 ml Balance 600 ml -125 ml -2150 ml Intake Oral 200 ml IV Total 600 ml 100 ml Other 200 ml Output Urine Total 200 ml 325 ml 2250 ml # Voids 1 Laboratory Laboratory Tests Test 12/24/17 19:30 12/25/17 04:45 12/25/17 12:30 White Blood Count 31.2 29.6 Red Blood Count 3.21 3.16 Hemoglobin 9.0 8.9 Hematocrit 27.2 26.9 Mean Corpuscular Volume 84.8 85.2 Mean Corpuscular Hemoglobin 27.9 28.2 Mean Corpuscular Hemoglobin Concent 32.9 33.0 Red Cell Distribution Width 18.7 18.6 Platelet Count 412 393 Mean Platelet Volume 7.4 7.9 Neutrophils (%) (Auto) 92.8 93.0 Lymphocytes (%) (Auto) 2.5 2.1 Monocytes (%) (Auto) 4.5 4.8 Eosinophils (%) (Auto) 0.1 0.0 Basophils (%) (Auto) 0.1 0.1 Neutrophils # (Auto) 29.0 27.5 Lymphocytes # (Auto) 0.8 0.6 Monocytes # (Auto) 1.4 1.4 Eosinophils # (Auto) 0.0 0.0 Basophils # (Auto) 0.0 0.0 CBC Comment AUTO DIFF DIFF FINAL Differential Total Cells Counted 100 Neutrophils % (Manual) 94 Band Neutrophils % 1 Lymphocytes % 2 Monocytes % 3 Neutrophils # (Manual) 29.6 Differential Comment FINAL DIFF MANUAL Platelet Estimate HIGH Platelet Morphology Comment NORMAL Prothrombin Time 13.3 Prothromb Time International Ratio 1.3 Activated Partial Thromboplast Time 26.4 Blood Urea Nitrogen 21 20 Creatinine 0.80 0.83 Random Glucose 113 114 Total Protein 5.3 Albumin 1.4 Calcium Level 8.5 8.1 Alkaline Phosphatase 110 Aspartate Amino Transf (AST/SGOT) 16 Alanine Aminotransferase (ALT/SGPT) 34 Total Bilirubin 0.4 Sodium Level 142 143 Potassium Level 3.6 3.3 Chloride Level 107 106 Carbon Dioxide Level 28.0 30.4 Anion Gap 7 7 Estimat Glomerular Filtration Rate 95 91 Uric Acid 3.8 Date/Time Source Procedure Growth Status 12/24/17 09:17 Blood Peripheral Aerobic Blood Culture - Preliminary NO GROWTH IN 1 DAY Resulted 12/24/17 09:17 Blood Peripheral Anaerobic Blood Culture - Preliminary NO GROWTH IN 1 DAY Resulted Imaging Last Impressions Bone Biopsy CT 12/25/17 1142 Signed Impressions: Service Date/Time: Monday, December 25, 2017 12:32 - CONCLUSION: 1. Uncomplicated CT guided bone marrow aspirate. 2. Uncomplicated CT guided bone marrow biopsy. Lee Mijares MD CT Angiography 12/25/17 0000 Signed Impressions: Service Date/Time: Monday, December 25, 2017 09:26 - CONCLUSION: 1. No CT evidence for pulmonary artery embolism. 2. Moderate to large bilateral pleural effusions with associated compressive atelectasis at the lung bases. 3. 8mm nodule in the right middle lobe. Followup CT examination may be performed at 6 months to document stability if this has not been evaluated previously. 4. Very mildly prominent mediastinal and hilar nodes and partially imaged upper abdominal lymphadenopathy in this patient with history of lymphoma. Miguel Ashton MD Chest X-Ray 12/24/17 0000 Signed Impressions: Service Date/Time: Sunday, December 24, 2017 10:34 - CONCLUSION: 1. Stable bilateral lower lobe air space consolidation and small pleural effusions, right worse than left. Miguel Ashton MD Physical Exam HEENT: normocephalic; atraumatic; no jaundice. CHEST: wheezes, rhonchi CARDIAC: RRR ABDOMEN: Soft, nondistended, PEG site clean and dry; no hepatosplenomegaly; bowel sounds are present in all four quadrants. EXTREMITIES: No clubbing, cyanosis, or edema. SKIN: Normal; no rash; no jaundice. CONTACT REPRESENTATIVE: sleeping, did not rouse to exam (Marcy Kasper) Assessment and Plan Plan - Wt loss, loss of appetite, ENF- newly diagnosed anaplastic large cell lymphoma who was transferred from [facility] where he was diagnosed to [facility] to receive treatment due to insurance reasons. GI have been consulted for PEG tube placement. Pt is able to swallow, however, has had no appetite and lost approx. 30 lbs over 8 weeks span. Reports some nausea, but no vomiting, no abd pain or hematochezia. - newly diagnosed anaplastic large cell lymphoma- oncology on the case - Hx of COPD, HTN per attending 12/25/17 s/p EGD and peg tube placement, ulcer duodenum found. bx pending. faye TF at low rate. Plan: - restart TF - await bx - continue BID protonix 40mg - EGD in 2m - Supportive care - GI will sign off, please reconsult if needed - Patient seen and examined by Dr. Mak and myself and this note is written on his behalf. (Marcy Kasper) Physician Comments As above, please notify us if needed again. (Elvis Mak MD) Marcy Kasper Dec 25, 2017 14:51 Elvis Mak MD Dec 25, 2017 21:34
[2017-12-25] MEDS ORDERED: SODIUM CHLORID 0.9% IV ONE (15:00)
[2017-12-25] MEDS ORDERED: CYCLOPHOSPHAMIDE IV ONE (15:00)
[2017-12-26] VITALS (30 sets, daily range): BP systolic 107–125; BP diastolic 56–74; PULSE 80–121; RESP 18–20; TEMP 97.5–98.5; O2SAT 92–100
[2017-12-26] MEDS: RESP: ALBUTEROL 2.5 MG/IPRATROPIUM 0.5 MG NEB (SCH) NEB ×6 (00:17→20:04)
[2017-12-26] MEDS: CEFEPIME INJ 1,000 MG in SODIUM CHLORIDE 0.9% INJ 100 ML IV SCH ×3 (04:47→20:44)
[2017-12-26 07:31] LABS: AUTOMATED NEUTROPHIL # 26.1 TH/MM3 (1.8-7.7); HEMATOCRIT 27.1 % (39.0-51.0); HEMOGLOBIN 8.9 GM/DL (13.0-17.0); LYMPHOCYTE # 0.3 TH/MM3 (1.0-4.8); MEAN CELL VOLUME 84.9 FL (80.0-100.0); MEAN CORPUSCULAR HEMOGLOBIN 27.9 PG (27.0-34.0); MEAN CORPUSCULAR HGB CONC 32.9 % (32.0-36.0); MEAN PLATELET VOLUME 7.8 FL (7.0-11.0); MONO % 1.4 % (0.0-8.0); MONOCYTE # 0.4 TH/MM3 (0-0.9); NEUT % 97.6 % (16.0-70.0); PLATELET COUNT 380 TH/MM3 (150-450); RED CELL DISTRIBUTION WIDTH 18.6 % (11.6-17.2); WHITE BLOOD COUNT 26.8 TH/MM3 (4.0-11.0)
[2017-12-26 07:50] LABS: ALBUMIN 1.4 GM/DL (3.4-5.0); BICARBONATE 29.3 MEQ/L (21.0-32.0); CALCIUM 8.3 MG/DL (8.5-10.1); CREATININE 0.78 MG/DL (0.60-1.30)
[2017-12-26 07:54] LABS: DIRECT BILIRUBIN ADULT 0.1 MG/DL (0.0-0.2); INDIRECT BILIRUBIN 0.2 MG/DL (0.0-0.8); TOTAL BILIRUBIN ADULT 0.3 MG/DL (0.2-1.0); TOTAL PROTEIN 5.3 GM/DL (6.4-8.2)
--- NOTE | 2017-12-26 08:19 | HHI.PR ---
Subjective Remarks This is a pleasant 72 y/o male with Hypertension, Hyperlipidemia, COPD, peripheral Neuropathy with newly diagnosed anaplastic large cell lymphoma Initially admitted to [facility] on 12/13/17, due to difficulty to breath, received antibiotics, found Pneumonia, He also has had a lump on his left neck since August 2018 which was biopsied and showed anaplastic large cell lymphoma alk negative. The oncologist at [facility] recommended chemotherapy to begin as soon as possible and possible bone marrow aspiration but due to insurance concerns he had to be transferred to [facility] for further treatment. He sees an oncologist in [place] as an outpatient - Dr. Somers. He has seen ENT Dr. Thorne. Developed NSVT while at [facility]. patient seen in his bedroom awaiting for final disposition by Oncology, he is not eating well, will start him on IV fluids, TPN asked, PICC line, Bronchodilator, Mucolytic, Incentive spirometry, Information Systems Planner evaluation, PEG tube placement, reviewed his Port placed last 12/20/17 and not ready to remove stitches, discussed with nurse Miss Vazquez and with his Mrs. Kalani Diaz. 12/24: Seen by GI specialist, scheduled for EGD and PEG tube placement for today , evaluated Chest X ray now in view of laboratory I decide to start him on antibiotics, Vancomycin and Cefepime, asked for blood cultures, Sputum culture, Legionella antigen, Pneumococcal antigen, Infectious disease consult, Lactic Acid stat. discussed with patient and his another relatives in the room. all questions answered. 12/25: Stable in his bedroom, in the presence of his , improving condition, as per Oncology to start Chemotherapy. 12/26: Seen in his bedroom, recommended to continue aggressive diuresis, had CHOP C1D1 yesterday, Next chemotherapy in 3 weeks, to continue Allopurinol and Prednisone, he developed Atrial Fibrillation as per his relative the patient had evaluation by intensive care medicine specialist while at [facility] asked for intensive care medicine specialist. Objective Vital Signs Date Time Temp Pulse Resp B/P (MAP) Pulse Ox O2 Delivery O2 Flow Rate FiO2 12/26/17 07:52 98.2 102 20 110/72 (85) 92 12/26/17 07:41 95 Nasal Cannula 5.00 12/26/17 07:00 108 12/26/17 04:38 97.7 98 18 125/73 (90) 92 12/26/17 04:10 96 12/26/17 03:00 98 12/26/17 02:00 92 12/26/17 01:00 90 12/26/17 00:05 97.5 83 20 122/74 (90) 94 12/26/17 00:03 93 12/25/17 23:00 80 12/25/17 22:00 74 12/25/17 21:00 76 12/25/17 20:04 99 12/25/17 20:00 97.8 101 23 123/66 (85) 95 12/25/17 20:00 Nasal Cannula 5.00 40 Humidified 12/25/17 20:00 97 Nasal Cannula 5.00 12/25/17 18:00 100 12/25/17 17:00 96 12/25/17 16:00 94 12/25/17 15:40 98.3 97 16 129/73 (91) 95 12/25/17 15:00 90 12/25/17 13:41 81 24 124/76 (92) 95 12/25/17 13:11 97.4 74 25 118/74 (89) 94 12/25/17 11:30 98.8 86 28 163/89 (113) 94 12/25/17 11:00 82 12/25/17 10:00 82 12/25/17 09:00 114 I/O 12/25/17 12/25/17 12/25/17 12/26/17 12/26/17 12/26/17 07:00 15:00 23:00 07:00 15:00 23:00 Intake Total 100 ml 200 ml 657 ml Output Total 2250 ml 500 ml Balance -2150 ml 200 ml 157 ml IV Total 100 ml 657 ml Other 200 ml Output Urine Total 2250 ml 500 ml # Voids 1 Result Diagram: 12/26/17 0450 12/26/17 0450 Imaging Last Impressions Bone Biopsy CT 12/25/17 1142 Signed Impressions: Service Date/Time: Monday, December 25, 2017 12:32 - CONCLUSION: 1. Uncomplicated CT guided bone marrow aspirate. 2. Uncomplicated CT guided bone marrow biopsy. Lee Mijares MD CT Angiography 12/25/17 0000 Signed Impressions: Service Date/Time: Monday, December 25, 2017 09:26 - CONCLUSION: 1. No CT evidence for pulmonary artery embolism. 2. Moderate to large bilateral pleural effusions with associated compressive atelectasis at the lung bases. 3. 8mm nodule in the right middle lobe. Followup CT examination may be performed at 6 months to document stability if this has not been evaluated previously. 4. Very mildly prominent mediastinal and hilar nodes and partially imaged upper abdominal lymphadenopathy in this patient with history of lymphoma. Miguel Ashton MD Chest X-Ray 12/24/17 0000 Signed Impressions: Service Date/Time: Sunday, December 24, 2017 10:34 - CONCLUSION: 1. Stable bilateral lower lobe air space consolidation and small pleural effusions, right worse than left. Miguel Ashton MD Procedures PEG tube placement. Bone Marrow Biopsy 12/25/17 Other Results Laboratory Tests Test 12/23/17 13:25 12/24/17 04:20 12/24/17 09:12 12/24/17 19:30 Hemoglobin A1c 6.0 % Triglycerides Level 52 MG/DL Cholesterol Level 66 MG/DL LDL Cholesterol 28 MG/DL HDL Cholesterol 27.5 MG/DL Cholesterol/HDL Ratio 2.40 RATIO Thiamine Level 203 nmol/L Vitamin B12 Level 1173 PG/ML Folate 13.2 NG/ML Free Thyroxine 1.41 NG/DL Thyroid Stimulating Hormone 3rd Gen 1.180 uIU/ML Erythrocyte Sedimentation Rate 67 mm/hr HIV (1&2) Antibody NEGATIVE Lactic Acid Level 0.9 mmol/L Differential Total Cells Counted 100 Neutrophils % (Manual) 94 % Band Neutrophils % 1 % Lymphocytes % 2 % Monocytes % 3 % Neutrophils # (Manual) 29.6 TH/MM3 Platelet Estimate HIGH Platelet Morphology Comment NORMAL Prothrombin Time 13.3 SEC Prothromb Time International Ratio 1.3 RATIO Activated Partial Thromboplast Time 26.4 SEC Test 12/25/17 12:30 12/25/17 15:20 12/26/17 04:50 Blood Gas Puncture Site RT RADIAL Blood Gas Patient Temperature 98.6 Blood Gas HCO3 28 mmol/L Blood Gas Base Excess 4.2 mmol/L Blood Gas Oxygen Saturation 89 % Arterial Blood pH 7.43 Arterial Blood Partial Pressure CO2 44 mmHg Arterial Blood Partial Pressure O2 63 mmHg Arterial Blood Oxygen Content 12.2 Vol % Arterial Blood Carboxyhemoglobin 1.5 % Arterial Blood Methemoglobin 1.1 % Blood Gas Hemoglobin 9.7 G/DL Oxygen Delivery Device NASAL CANNULA Blood Gas Liter Flow 5 L/M White Blood Count 26.8 TH/MM3 Red Blood Count 3.20 MIL/MM3 Hemoglobin 8.9 GM/DL Hematocrit 27.1 % Mean Corpuscular Volume 84.9 FL Mean Corpuscular Hemoglobin 27.9 PG Mean Corpuscular Hemoglobin Concent 32.9 % Red Cell Distribution Width 18.6 % Platelet Count 380 TH/MM3 Mean Platelet Volume 7.8 FL Neutrophils (%) (Auto) 97.6 % Lymphocytes (%) (Auto) 1.0 % Monocytes (%) (Auto) 1.4 % Eosinophils (%) (Auto) 0.0 % Basophils (%) (Auto) 0.0 % Neutrophils # (Auto) 26.1 TH/MM3 Lymphocytes # (Auto) 0.3 TH/MM3 Monocytes # (Auto) 0.4 TH/MM3 Eosinophils # (Auto) 0.0 TH/MM3 Basophils # (Auto) 0.0 TH/MM3 CBC Comment DIFF FINAL Differential Comment Blood Urea Nitrogen 26 MG/DL Creatinine 0.78 MG/DL Random Glucose 147 MG/DL Total Protein 5.3 GM/DL Albumin 1.4 GM/DL Calcium Level 8.3 MG/DL Uric Acid 3.4 MG/DL Alkaline Phosphatase 119 U/L Aspartate Amino Transf (AST/SGOT) 22 U/L Alanine Aminotransferase (ALT/SGPT) 30 U/L Lactate Dehydrogenase 148 U/L Total Bilirubin 0.3 MG/DL Direct Bilirubin 0.1 MG/DL Sodium Level 144 MEQ/L Potassium Level 3.4 MEQ/L Chloride Level 107 MEQ/L Carbon Dioxide Level 29.3 MEQ/L Anion Gap 8 MEQ/L Estimat Glomerular Filtration Rate 98 ML/MIN Indirect Bilirubin 0.2 MG/DL Objective Remarks GENERAL: This is a thin pleasant older male patient, in no apparent distress. SKIN: No rashes. Cool and dry. Right chest wall port HEAD: Atraumatic. Normocephalic. EYES: No scleral icterus. No injection or drainage. ENT: Nose without bleeding, purulent drainage. NECK: Trachea midline. No JVD. Left supraclavicular lymphadenopathy palpated, fixed. CARDIOVASCULAR: Irregular rate and rhythm. no murmurs. RESPIRATORY: Breath sounds diminished at bases equal bilaterally. No wheezes, rales, or rhonchi. Mild tachypnea noted. GASTROINTESTINAL: Abdomen soft, non-tender, nondistended. No guarding. MUSCULOSKELETAL: Extremities without clubbing, cyanosis, or edema. No calf tenderness. NEUROLOGICAL: Awake and alert. Motor and sensory grossly within normal limits. Normal speech. . Medications and IVs Current Medications Medications (Trade) Dose Ordered Sig/Candace Route Start Time Stop Time Status Last Admin (NS Flush) 2 ml UNSCH PRN IV FLUSH 12/22/17 18:15 (NS Flush) 2 ml BID IV FLUSH 12/22/17 21:00 12/25/17 20:19 (Zofran Inj) 4 mg Q6H PRN IVP 12/22/17 18:15 (Narcan Inj) 0.4 mg UNSCH PRN IV PUSH 12/22/17 18:15 (Mary Kay-Colace) 1 tab BID PO 12/22/17 21:00 12/25/17 08:37 (Milk Of Magnesia Liq) 30 ml Q12H PRN PO 12/22/17 18:15 (Senokot) 17.2 mg Q12H PRN PO 12/22/17 18:15 (Lactulose Liq) 30 ml DAILY PRN PO 12/22/17 18:15 (Ativan) 1 mg Q8H PRN PO 12/22/17 20:15 12/25/17 11:36 (Duoneb Neb) 1 ampule Q4HR NEB PRN NEB 12/22/17 20:15 12/24/17 18:10 (Ambien) 5 mg HS PRN PO 12/22/17 20:15 12/24/17 21:51 (Carafate Liq) 1 gm ACHS PO 12/22/17 21:00 12/25/17 20:19 (Protonix) 40 mg Q12HR PO 12/22/17 21:00 12/25/17 08:37 (Lopressor) 50 mg Q12HR PO 12/22/17 21:00 12/25/17 20:19 (Megace Liq) 800 mg DAILY PO 12/23/17 09:00 12/25/17 08:37 (Colace) 100 mg BID PO 12/22/17 21:00 12/25/17 08:37 (Symbicort 160-4.5 Mcg Inh) 1 puff Q12HR INH 12/22/17 21:00 12/25/17 08:38 (Ecotrin Ec) 81 mg DAILY PO 12/23/17 09:00 12/25/17 08:38 (Lipitor) 80 mg DAILY PO 12/23/17 09:00 12/25/17 09:00 (Theragran) 1 tab DAILY PO 12/23/17 09:00 12/25/17 08:38 (Heparin Central Flush) 500 units UNSCH IV FLUSH 12/22/17 20:30 (NS Flush) 5 ml UNSCH PRN IVF 12/22/17 20:30 (Heparin Central Flush) 250 units UNSCH PRN IV FLUSH 12/22/17 20:30 (D50w (Vial) Inj) 50 ml UNSCH PRN IV PUSH 12/22/17 20:30 (Glucagon Inj) 1 mg UNSCH PRN OTHER 12/22/17 20:30 (NovoLOG SUPPLEMENTAL SCALE) 1 ACHS SLIDING SCALE SQ 12/22/17 21:00 12/25/17 17:00 (Robitussin Dm 200-20 Mg/10 ml Liq) 10 ml Q4H PRN PO 12/22/17 21:00 12/25/17 10:25 (Percocet 5-325 Mg) 1 tab Q4H PRN PO 12/22/17 23:00 Sodium Chloride 1,000 ml @ 100 mls/hr Q10H IV 12/23/17 12:00 12/25/17 16:59 (Duoneb Neb) 1 ampule Q4HR NEB NEB 12/23/17 12:00 12/26/17 07:41 (Mucinex Er) 600 mg BID PO 12/23/17 21:00 12/25/17 08:38 (Tessalon) 100 mg TID PRN PO 12/25/17 12:00 (Zyloprim) 300 mg DAILY PO 12/26/17 09:00 Cefepime HCl 1000 mg/Sodium Chloride 100 ml @ 200 mls/hr Q8H IV 12/25/17 21:00 12/26/17 04:47 A/P Assessment and Plan (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 Diaz is a 72 y/o male with a history of newly diagnosed anaplastic large cell lymphoma who was transferred from [facility] sent to our facility to continue his management. due to insurance reasons. Anaplastic large cell lymphoma ALK negative, Awaiting recreation program specialist for management. Port evaluated stitches not ready for removal. - Pain medicine, recreation program specialist consulted, Zofran for nausea and vomit, IV fluids, Consult medical oncology - appreciate assistance with treatment - IV fluids, TPN asked, PICC line, Bronchodilator, Mucolytic, Incentive spirometry, Information Systems Planner evaluation, status post PEG placement, status post CHOP chemotherapy given yesterday and will give one in three weeks. COPD - Supplemental oxygen as needed - Continue Proventil inhalers - Bronchodilator, Mucolytic and incentive spirometry. - Continue prednisone 5 mg by mouth daily, the patient may have this Leukocytosis secondary to Steroid use, but he has bilateral lower lobe consolidations, not transferred with antibiotics, considered for possible Lymphoma instead of real infection, removed Vancomycin and continue Cefepime. Anxiety - Continue lorazepam 1 mg by mouth every 8 hours when necessary for moderate to severe anxiety Hyperlipidemia - Continue home atorvastatin 80 mg by mouth daily Hypertension - Continue metoprolol 50 mg by mouth every 12 hours Steroid-induced hyperglycemia - We'll continue Accu-Cheks before meals and at bedtime with low-dose NovoLog sliding scale coverage - Monitor trends and blood glucose levels and adjust treatments accordingly Hx of NSVT at [facility] per record review - continuous cardiac telemetry to monitor for dysrhythmia - patient will need stress test as an outpatient at some point in time - nuclear med MUGA scan showed EF 81% at [facility] - today new onset of Atrial Fibrillation asked for Echocardiogram, continue Beta blockers and Cardiology consult. Hypokalemia replaced and following. DVT prophylaxis - SCDs . Discussed Condition With Patient and relative in the room. Discharge Planning Once Cleared by Specialists. Nils Nichols MD Dec 26, 2017 08:19
[2017-12-26] MEDS ORDERED: FUROSEMIDE 40 MG/4 ML VIAL IV PUSH ONE (08:30)
[2017-12-26 09:16] LABS: MAGNESIUM 2.3 MG/DL (1.5-2.5); PHOSPHORUS 3.2 MG/DL (2.5-4.9)
[2017-12-26] MEDS: POTASSIUM CHLOR 10 MEQ PREMIX 100 ML IV SCH ×3 (09:18→14:26)
[2017-12-26] MEDS: SUCRALFATE 1 GM/10 ML CUP PO SCH ×4 (09:19→20:31)
[2017-12-26] MEDS: ASPIRIN EC 81 MG TABEC PO SCH (09:19)
[2017-12-26] MEDS: MULTIVITAMIN TAB PO SCH (09:19)
[2017-12-26] MEDS: MEGESTROL ACETATE SUSP 400 MG/10 ML CUP PO SCH (09:19)
[2017-12-26] MEDS: guaiFENesin E.R. 600 MG TAB PO SCH ×2 (09:19→20:33)
[2017-12-26] MEDS: ATORVASTATIN 80 MG TAB PO SCH (09:19)
[2017-12-26] MEDS: DOCUSATE SODIUM 50 MG/SENNA 8.6 MG TAB PO SCH ×2 (09:19→21:00)
[2017-12-26] MEDS: PANTOPRAZOLE SOD 40 MG DELAYED RELEASE TAB PO SCH ×2 (09:19→20:32)
[2017-12-26] MEDS: DOCUSATE SODIUM 100 MG CAP PO SCH ×2 (09:20→21:00)
[2017-12-26] MEDS: METOPROLOL TARTRATE 50 MG TAB PO SCH ×2 (09:20→20:32)
[2017-12-26] MEDS: ALLOPURINOL 300 MG TAB PO SCH (09:20)
[2017-12-26] MEDS: INSULIN ASPART SUPPLEMENTAL SCALE SQ SCH ×4 (09:20→21:25)
[2017-12-26] MEDS: SODIUM CHLOR 0.9% 1000 ML INJ 1,000 ML IV SCH ×2 (09:21)
[2017-12-26] MEDS: BUDESONIDE-FORMOTEROL 160/4.5 MCG INHALER INH SCH ×2 (09:21→20:29)
[2017-12-26] MEDS: SODIUM CHLORIDE 0.9% FLUSH 10 ML FLUSH IV FLUSH SCH ×2 (09:21→21:00)
[2017-12-26] MEDS: guaiFENesin/DEXTROMETHORPHAN 200 MG/20 MG/10 ML CUP PO PRN ×3 (09:23→18:27)
--- NOTE | 2017-12-26 13:26 | HHI.IDPN ---
Note Infectious Disease Note Patient feels better today. He received chemotherapy yesterday. He is awake and alert. He feels weak. His breathing feels better. He has a cough and congestion but no sputum production. No acute distress. Afebrile. 72-year-old white male who was diagnosed with lymphoma. The patient was noted to have become ill 2 months ago. He was noted to have cough and he was given 3 rounds of oral antibiotics without improvement of the cough. Subsequent workup revealed mediastinal adenopathy and other areas of adenopathy, and a biopsy of the lesion of the neck came back showing lymphoma. During his stay at [facility], he had no fever. He was given antibiotics. An Infusaport was placed on 12/20 for anticipated chemotherapy. PAST MEDICAL HISTORY: Stage IIIB anaplastic large cell lymphoma, COPD, hypertension, hyperlipidemia, history of CVA without residual deficits, nonsustained V-tach at [facility], neuropathy of the lower extremities, back surgery, Infusaport placement on 12/20/2017. ALLERGIES: HYDROCODONE. MEDICATIONS: Current Medications Medications (Trade) Dose Ordered Sig/Candace Route PRN Reason Start Time Stop Time Status Last Admin Dose Admin Sodium Chloride (NS Flush) 2 ml UNSCH PRN IV FLUSH FLUSH AFTER USING IV ACCESS 12/22/17 18:15 Sodium Chloride (NS Flush) 2 ml BID IV FLUSH 12/22/17 21:00 12/26/17 09:21 Ondansetron HCl (Zofran Inj) 4 mg Q6H PRN IVP NAUSEA OR VOMITING 12/22/17 18:15 Naloxone HCl (Narcan Inj) 0.4 mg UNSCH PRN IV PUSH SEE LABEL COMMENTS 12/22/17 18:15 Senna/Docusate Sodium (Mary Kay-Colace) 1 tab BID PO 12/22/17 21:00 12/26/17 09:19 Magnesium Hydroxide (Milk Of Magnesia Liq) 30 ml Q12H PRN PO Mild constipation 12/22/17 18:15 Sennosides (Senokot) 17.2 mg Q12H PRN PO Moderate constipation 12/22/17 18:15 Lactulose (Lactulose Liq) 30 ml DAILY PRN PO SEVERE CONSITIPATION 12/22/17 18:15 Lorazepam (Ativan) 1 mg Q8H PRN PO MODERATE TO SEVERE ANXIETY 12/22/17 20:15 3/13/18 11:36 Albuterol/ Ipratropium (Duoneb Neb) 1 ampule Q4HR NEB PRN NEB SOB/WHEEZING 12/22/17 20:15 12/24/17 18:10 Zolpidem Tartrate (Ambien) 5 mg HS PRN PO INSOMNIA 12/22/17 20:15 12/24/17 21:51 Sucralfate (Carafate Liq) 1 gm ACHS PO 12/22/17 21:00 12/26/17 12:03 Pantoprazole Sodium (Protonix) 40 mg Q12HR PO 12/22/17 21:00 12/26/17 09:19 Metoprolol Tartrate (Lopressor) 50 mg Q12HR PO 12/22/17 21:00 12/26/17 09:20 Megestrol Acetate (Megace Liq) 800 mg DAILY PO 12/23/17 09:00 12/26/17 09:19 Docusate Sodium (Colace) 100 mg BID PO 12/22/17 21:00 12/26/17 09:20 Budesonide/ Formoterol Fumarate (Symbicort 160-4.5 Mcg Inh) 1 puff Q12HR INH 12/22/17 21:00 12/26/17 09:21 Aspirin (Ecotrin Ec) 81 mg DAILY PO 12/23/17 09:00 12/26/17 09:19 Atorvastatin Calcium (Lipitor) 80 mg DAILY PO 12/23/17 09:00 12/26/17 09:19 Multivitamins (Theragran) 1 tab DAILY PO 12/23/17 09:00 12/26/17 09:19 Heparin Sodium (Porcine) (Heparin Central Flush) 500 units UNSCH IV FLUSH 12/22/17 20:30 Sodium Chloride (NS Flush) 5 ml UNSCH PRN IVF SEE PROTOCOL 12/22/17 20:30 Heparin Sodium (Porcine) (Heparin Central Flush) 250 units UNSCH PRN IV FLUSH SEE PROTOCOL 12/22/17 20:30 Dextrose (D50w (Vial) Inj) 50 ml UNSCH PRN IV PUSH HYPOGLYCEMIA-SEE COMMENTS 12/22/17 20:30 Glucagon (Glucagon Inj) 1 mg UNSCH PRN OTHER HYPOGLYCEMIA-SEE COMMENTS 12/22/17 20:30 Insulin Aspart (NovoLOG SUPPLEMENTAL SCALE) 1 ACHS SLIDING SCALE SQ 12/22/17 21:00 12/26/17 12:03 Guaifenesin/ Dextromethorphan (Robitussin Dm 200-20 Mg/10 ml Liq) 10 ml Q4H PRN PO cough interfering with rest 12/22/17 21:00 12/26/17 13:15 Oxycodone/ Acetaminophen (Percocet 5-325 Mg) 1 tab Q4H PRN PO pain > 4 12/22/17 23:00 Sodium Chloride 1,000 ml @ 42 mls/hr [id number] IV 12/23/17 12:00 12/26/17 09:21 Albuterol/ Ipratropium (Duoneb Neb) 1 ampule Q4HR NEB NEB 12/23/17 12:00 12/26/17 11:04 Guaifenesin (Mucinex Er) 600 mg BID PO 12/23/17 21:00 12/26/17 09:19 Benzonatate (Tessalon) 100 mg TID PRN PO cough 12/25/17 12:00 Allopurinol (Zyloprim) 300 mg DAILY PO 12/26/17 09:00 12/26/17 09:20 Cefepime HCl 1000 mg/Sodium Chloride 100 ml @ 200 mls/hr Q8H IV 12/25/17 21:00 12/26/17 12:03 SOCIAL HISTORY: Patient is . Patient is a prior smoker. No alcohol use. No illicit drugs. OBJECTIVE: Vital Signs Date Time Temp Pulse Resp B/P (MAP) Pulse Ox O2 Delivery O2 Flow Rate FiO2 12/26/17 12:14 98.5 80 18 107/56 (73) 92 12/26/17 11:00 83 12/26/17 08:12 93 Nasal Cannula 5.00 12/26/17 07:52 98.2 102 20 110/72 (85) 92 12/26/17 07:41 95 Nasal Cannula 5.00 12/26/17 07:00 108 12/26/17 04:38 97.7 98 18 125/73 (90) 92 12/26/17 04:10 96 12/26/17 03:00 98 12/26/17 02:00 92 12/26/17 01:00 90 12/26/17 00:05 97.5 83 20 122/74 (90) 94 12/26/17 00:03 93 12/25/17 23:00 80 12/25/17 22:00 74 12/25/17 21:00 76 12/25/17 20:04 99 12/25/17 20:00 97.8 101 23 123/66 (85) 95 12/25/17 20:00 Nasal Cannula 5.00 40 Humidified 12/25/17 20:00 97 Nasal Cannula 5.00 12/25/17 18:00 100 12/25/17 17:00 96 12/25/17 16:00 94 12/25/17 15:40 98.3 97 16 129/73 (91) 95 12/25/17 15:00 90 12/25/17 13:41 81 24 124/76 (92) 95 Laboratory Tests Test 12/24/17 19:30 12/25/17 04:45 12/26/17 04:50 White Blood Count 31.2 TH/MM3 29.6 TH/MM3 26.8 TH/MM3 Red Blood Count 3.21 MIL/MM3 3.16 MIL/MM3 3.20 MIL/MM3 Hemoglobin 9.0 GM/DL 8.9 GM/DL 8.9 GM/DL Hematocrit 27.2 % 26.9 % 27.1 % Mean Corpuscular Volume 84.8 FL 85.2 FL 84.9 FL Mean Corpuscular Hemoglobin 27.9 PG 28.2 PG 27.9 PG Mean Corpuscular Hemoglobin Concent 32.9 % 33.0 % 32.9 % Red Cell Distribution Width 18.7 % 18.6 % 18.6 % Platelet Count 412 TH/MM3 393 TH/MM3 380 TH/MM3 Mean Platelet Volume 7.4 FL 7.9 FL 7.8 FL Neutrophils (%) (Auto) 92.8 % 93.0 % 97.6 % Lymphocytes (%) (Auto) 2.5 % 2.1 % 1.0 % Monocytes (%) (Auto) 4.5 % 4.8 % 1.4 % Eosinophils (%) (Auto) 0.1 % 0.0 % 0.0 % Basophils (%) (Auto) 0.1 % 0.1 % 0.0 % Neutrophils # (Auto) 29.0 TH/MM3 27.5 TH/MM3 26.1 TH/MM3 Lymphocytes # (Auto) 0.8 TH/MM3 0.6 TH/MM3 0.3 TH/MM3 Monocytes # (Auto) 1.4 TH/MM3 1.4 TH/MM3 0.4 TH/MM3 Eosinophils # (Auto) 0.0 TH/MM3 0.0 TH/MM3 0.0 TH/MM3 Basophils # (Auto) 0.0 TH/MM3 0.0 TH/MM3 0.0 TH/MM3 CBC Comment AUTO DIFF DIFF FINAL DIFF FINAL Differential Total Cells Counted 100 Neutrophils % (Manual) 94 % Band Neutrophils % 1 % Lymphocytes % 2 % Monocytes % 3 % Neutrophils # (Manual) 29.6 TH/MM3 Differential Comment FINAL DIFF MANUAL Platelet Estimate HIGH Platelet Morphology Comment NORMAL Laboratory Tests Test 12/24/17 19:30 12/25/17 04:45 12/26/17 04:50 Blood Urea Nitrogen 21 MG/DL 20 MG/DL 26 MG/DL Creatinine 0.80 MG/DL 0.83 MG/DL 0.78 MG/DL Random Glucose 113 MG/DL 114 MG/DL 147 MG/DL Total Protein 5.3 GM/DL 5.3 GM/DL Albumin 1.4 GM/DL 1.4 GM/DL Calcium Level 8.5 MG/DL 8.1 MG/DL 8.3 MG/DL Alkaline Phosphatase 110 U/L 119 U/L Aspartate Amino Transf (AST/SGOT) 16 U/L 22 U/L Alanine Aminotransferase (ALT/SGPT) 34 U/L 30 U/L Total Bilirubin 0.4 MG/DL 0.3 MG/DL Sodium Level 142 MEQ/L 143 MEQ/L 144 MEQ/L Potassium Level 3.6 MEQ/L 3.3 MEQ/L 3.4 MEQ/L Chloride Level 107 MEQ/L 106 MEQ/L 107 MEQ/L Carbon Dioxide Level 28.0 MEQ/L 30.4 MEQ/L 29.3 MEQ/L Anion Gap 7 MEQ/L 7 MEQ/L 8 MEQ/L Estimat Glomerular Filtration Rate 95 ML/MIN 91 ML/MIN 98 ML/MIN Uric Acid 3.8 MG/DL 3.4 MG/DL Lactate Dehydrogenase 148 U/L Direct Bilirubin 0.1 MG/DL Phosphorus Level 3.2 MG/DL Magnesium Level 2.3 MG/DL Indirect Bilirubin 0.2 MG/DL Microbiology Date/Time Source Procedure Growth Status 12/24/17 09:17 Blood Peripheral Aerobic Blood Culture - Preliminary NO GROWTH IN 2 DAYS Resulted 12/24/17 09:17 Blood Peripheral Anaerobic Blood Culture - Preliminary NO GROWTH IN 2 DAYS Resulted 12/24/17 09:12 Blood Peripheral Aerobic Blood Culture - Preliminary NO GROWTH IN 2 DAYS Resulted 12/24/17 09:12 Blood Peripheral Anaerobic Blood Culture - Preliminary NO GROWTH IN 2 DAYS Resulted IMAGING: Bone Biopsy CT 12/25/17 1142 Signed Impressions: Service Date/Time: Monday, December 25, 2017 12:32 - CONCLUSION: 1. Uncomplicated CT guided bone marrow aspirate. 2. Uncomplicated CT guided bone marrow biopsy. Lee Mijares MD CT Angiography 12/25/17 0000 Signed Impressions: Service Date/Time: Monday, December 25, 2017 09:26 - CONCLUSION: 1. No CT evidence for pulmonary artery embolism. 2. Moderate to large bilateral pleural effusions with associated compressive atelectasis at the lung bases. 3. 8mm nodule in the right middle lobe. Followup CT examination may be performed at 6 months to document stability if this has not been evaluated previously. 4. Very mildly prominent mediastinal and hilar nodes and partially imaged upper abdominal lymphadenopathy in this patient with history of lymphoma. Miguel Ashton MD Chest X-Ray 12/24/17 0000 Signed Impressions: Service Date/Time: Sunday, December 24, 2017 10:34 - CONCLUSION: 1. Stable bilateral lower lobe air space consolidation and small pleural effusions, right worse than left. Miguel Ashton MD PHYSICAL EXAMINATION: GENERAL: No acute distress. HEENT: Head is atraumatic. Extraocular movements grossly intact. Pupils reactive to light, but constricted. No icterus. No conjunctival erythema. Oropharynx, moist mucosa without lesions. NECK: Supple without adenopathy or swelling. LUNGS: Clear breath sounds. HEART: Regular S1 and S2. No murmurs, rubs or gallops. ABDOMEN: Bowel sounds present, soft, nontender. EXTREMITIES: No clubbing or cyanosis, 1+ edema of the lower extremities. SKIN: No diffuse rash. NEUROLOGIC: No gross focal finding. PSYCHIATRIC: Calm and cooperative. IMPRESSION: 1. Bibasilar lung infiltrates in patient with cough and immunosuppression secondary to lymphoma. 2. Lymphoma. Started on chemotherapy. 3. Leukocytosis likely secondary to lymphoma but at this time, cannot exclude infection. 4. Decreased nutrition in patient with anorexia and now post percutaneous endoscopic gastrostomy placement. RECOMMENDATIONS: 1. Continue cefepime. 2. Monitor temperature and white blood cell count. 3. Monitor temperature. 4. Monitor the clinical status. He is stable currently and I will see as needed. Lenin Salomon MD Dec 26, 2017 13:26
--- NOTE | 2017-12-26 14:12 | PD.ONC.PN ---
Subjective Subjective Remarks still has SOB but better than yesterday. No fever and no N/V/D Objective Data Date Time Temp Pulse Resp B/P (MAP) Pulse Ox O2 Delivery O2 Flow Rate FiO2 12/26/17 12:14 98.5 80 18 107/56 (73) 92 12/26/17 11:00 83 12/26/17 08:12 93 Nasal Cannula 5.00 12/26/17 07:52 98.2 102 20 110/72 (85) 92 12/26/17 07:41 95 Nasal Cannula 5.00 12/26/17 07:00 108 12/26/17 04:38 97.7 98 18 125/73 (90) 92 12/26/17 04:10 96 12/26/17 03:00 98 12/26/17 02:00 92 12/26/17 01:00 90 12/26/17 00:05 97.5 83 20 122/74 (90) 94 12/26/17 00:03 93 12/25/17 23:00 80 12/25/17 22:00 74 12/25/17 21:00 76 12/25/17 20:04 99 12/25/17 20:00 97.8 101 23 123/66 (85) 95 12/25/17 20:00 Nasal Cannula 5.00 40 Humidified 12/25/17 20:00 97 Nasal Cannula 5.00 12/25/17 18:00 100 12/25/17 17:00 96 12/25/17 16:00 94 12/25/17 15:40 98.3 97 16 129/73 (91) 95 12/25/17 15:00 90 12/26/17 12/26/17 12/26/17 07:00 15:00 23:00 Intake Total 657 ml 100 ml Output Total 500 ml Balance 157 ml 100 ml Result Diagram: 12/26/1744912/26/17 0450 Laboratory Results Laboratory Tests Test 12/25/17 15:20 12/26/17 04:50 Blood Gas Puncture Site RT RADIAL Blood Gas Patient Temperature 98.6 Blood Gas HCO3 28 mmol/L Blood Gas Base Excess 4.2 mmol/L Blood Gas Oxygen Saturation 89 % Arterial Blood pH 7.43 Arterial Blood Partial Pressure CO2 44 mmHg Arterial Blood Partial Pressure O2 63 mmHg Arterial Blood Oxygen Content 12.2 Vol % Arterial Blood Carboxyhemoglobin 1.5 % Arterial Blood Methemoglobin 1.1 % Blood Gas Hemoglobin 9.7 G/DL Oxygen Delivery Device NASAL CANNULA Blood Gas Liter Flow 5 L/M White Blood Count 26.8 TH/MM3 Red Blood Count 3.20 MIL/MM3 Hemoglobin 8.9 GM/DL Hematocrit 27.1 % Mean Corpuscular Volume 84.9 FL Mean Corpuscular Hemoglobin 27.9 PG Mean Corpuscular Hemoglobin Concent 32.9 % Red Cell Distribution Width 18.6 % Platelet Count 380 TH/MM3 Mean Platelet Volume 7.8 FL Neutrophils (%) (Auto) 97.6 % Lymphocytes (%) (Auto) 1.0 % Monocytes (%) (Auto) 1.4 % Eosinophils (%) (Auto) 0.0 % Basophils (%) (Auto) 0.0 % Neutrophils # (Auto) 26.1 TH/MM3 Lymphocytes # (Auto) 0.3 TH/MM3 Monocytes # (Auto) 0.4 TH/MM3 Eosinophils # (Auto) 0.0 TH/MM3 Basophils # (Auto) 0.0 TH/MM3 CBC Comment DIFF FINAL Differential Comment Blood Urea Nitrogen 26 MG/DL Creatinine 0.78 MG/DL Random Glucose 147 MG/DL Total Protein 5.3 GM/DL Albumin 1.4 GM/DL Calcium Level 8.3 MG/DL Uric Acid 3.4 MG/DL Alkaline Phosphatase 119 U/L Aspartate Amino Transf (AST/SGOT) 22 U/L Alanine Aminotransferase (ALT/SGPT) 30 U/L Lactate Dehydrogenase 148 U/L Total Bilirubin 0.3 MG/DL Direct Bilirubin 0.1 MG/DL Sodium Level 144 MEQ/L Potassium Level 3.4 MEQ/L Chloride Level 107 MEQ/L Carbon Dioxide Level 29.3 MEQ/L Anion Gap 8 MEQ/L Estimat Glomerular Filtration Rate 98 ML/MIN Phosphorus Level 3.2 MG/DL Magnesium Level 2.3 MG/DL Indirect Bilirubin 0.2 MG/DL Culture Results Microbiology Date/Time Source Procedure Growth Status 12/24/17 09:17 Blood Peripheral Aerobic Blood Culture - Preliminary NO GROWTH IN 2 DAYS Resulted 12/24/17 09:17 Blood Peripheral Anaerobic Blood Culture - Preliminary NO GROWTH IN 2 DAYS Resulted 12/24/17 09:12 Blood Peripheral Aerobic Blood Culture - Preliminary NO GROWTH IN 2 DAYS Resulted 12/24/17 09:12 Blood Peripheral Anaerobic Blood Culture - Preliminary NO GROWTH IN 2 DAYS Resulted Administered Medications Medications (Trade) Dose Ordered Sig/Candace Route PRN Reason Start Time Stop Time Status Last Admin Dose Admin Sodium Chloride (NS Flush) 2 ml BID IV FLUSH 12/22/17 21:00 12/26/17 09:21 Senna/Docusate Sodium (Mary Kay-Colace) 1 tab BID PO 12/22/17 21:00 12/26/17 09:19 Lorazepam (Ativan) 1 mg Q8H PRN PO MODERATE TO SEVERE ANXIETY 12/22/17 20:15 12/25/17 11:36 Albuterol/ Ipratropium (Duoneb Neb) 1 ampule Q4HR NEB PRN NEB SOB/WHEEZING 12/22/17 20:15 12/24/17 18:10 Zolpidem Tartrate (Ambien) 5 mg HS PRN PO INSOMNIA 12/22/17 20:15 12/24/17 21:51 Sucralfate (Carafate Liq) 1 gm ACHS PO 12/22/17 21:00 12/26/17 12:03 Pantoprazole Sodium (Protonix) 40 mg Q12HR PO 12/22/17 21:00 12/26/17 09:19 Metoprolol Tartrate (Lopressor) 50 mg Q12HR PO 12/22/17 21:00 12/26/17 09:20 Megestrol Acetate (Megace Liq) 800 mg DAILY PO 12/23/17 09:00 12/26/17 09:19 Docusate Sodium (Colace) 100 mg BID PO 12/22/17 21:00 12/26/17 09:20 Budesonide/ Formoterol Fumarate (Symbicort 160-4.5 Mcg Inh) 1 puff Q12HR INH 12/22/17 21:00 12/26/17 09:21 Aspirin (Ecotrin Ec) 81 mg DAILY PO 12/23/17 09:00 12/26/17 09:19 Atorvastatin Calcium (Lipitor) 80 mg DAILY PO 12/23/17 09:00 12/26/17 09:19 Multivitamins (Theragran) 1 tab DAILY PO 12/23/17 09:00 12/26/17 09:19 Insulin Aspart (NovoLOG SUPPLEMENTAL SCALE) 1 ACHS SLIDING SCALE SQ 12/22/17 21:00 12/26/17 12:03 Guaifenesin/ Dextromethorphan (Robitussin Dm 200-20 Mg/10 ml Liq) 10 ml Q4H PRN PO cough interfering with rest 12/22/17 21:00 12/26/17 13:15 Sodium Chloride 1,000 ml @ 42 mls/hr [id number] IV 12/23/17 12:00 12/26/17 09:21 Albuterol/ Ipratropium (Duoneb Neb) 1 ampule Q4HR NEB NEB 12/23/17 12:00 12/26/17 11:04 Guaifenesin (Mucinex Er) 600 mg BID PO 12/23/17 21:00 12/26/17 09:19 Allopurinol (Zyloprim) 300 mg DAILY PO 12/26/17 09:00 12/26/17 09:20 Cefepime HCl 1000 mg/Sodium Chloride 100 ml @ 200 mls/hr Q8H IV 12/25/17 21:00 12/26/17 12:03 Objective Remarks GENERAL: Well-nourished, well-developed patient. SKIN: Warm and dry. HEAD: Normocephalic. EYES: No scleral icterus. No injection or drainage. NECK: Supple, trachea midline. No JVD or lymphadenopathy. LYMPHATIC: No adenopathy. CARDIOVASCULAR: Regular rate and rhythm without murmurs. RESPIRATORY: Decrease Breath sounds bilaterally. GASTROINTESTINAL: Abdomen soft, non-tender, nondistended. EXTREMITIES: No cyanosis, or edema. NEUROLOGICAL: No obvious focal deficit. Awake, alert, and oriented x3. 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 Continue aggressive diuresis. Had CHOP C1D1 yesterday. Tolerated well. Next chemo in 3 weeks as outpt. Continue allopurinol and prednisone. 12/25: CTA shows no PE. +LAD, PE. dyspnea likely d/t lymphoma. will give Solu- medrol 1g IV and start CHOP today. Anaplastic large cell, non-Hodgkin's lymphoma, at least stage III. --unclear whether he has any B symptoms, but this could be most likely given that he has significant weight loss, which is one of the symptoms of lymphoma. --Leukocytosis, anemia and neutrophilia, most likely due to bone marrow involvement by the lymphoma until proven otherwise. (2) Malnutrition ICD Codes: E46 - Unspecified protein-calorie malnutrition Plan: --s/p PEG tube placement, tolerating tube feeds. Assessment 72y/o male with newly diagnosed anaplastic large cell NHL. h/o COPD, hypercholesterolemia, hypertension, history of previous stroke. HPI: started 8 weeks ago with a cough mixed with greenish phlegm and shortness of breath. CT cap showed diffuse lymphadenopathy on both sides of the diaphragm. PET scan showed increased uptake in the lymph nodes involving the neck, chest, mediastinal and hilar area, retroperitoneum and pelvic lymph nodes. biopsy of the left neck mass=anaplastic large cell NHL echocardiogram, LVEF=55-70%. MUGA scan, showed EF of 60%. Josy Suarez MD Dec 26, 2017 14:12
--- NOTE | 2017-12-26 14:31 | PD.WCN.NOT ---
Wound Consult Description: Wound consult ordered by for sacrum Communicated with: [facility], Recommendation: 1) Reposition patient every 2 hours for comfort and offloading 2) Cleanse sacral/buttocks area with normal saline pat dry.Apply Calazime 2mm thick to reddened area BID. 3) Please do not place any foam dressings/briefs or cotton underpads on patient. 4) Reconsult wound care if wound worsens. Additional Information: Patient was seen today by functional tester typewriters and Linh JOHNS,C on [facility] for assessment of sacrum.Patient Alert and oriented x3 resting in bed comfortably with at bedside.Patient was repositioned to right side with 2 person assist.Calazime cream cleansed off patient to reveal moisture/friction partial thickness denuded skin to bilateral buttocks.All surrounding tissue is blanchable.Wound bases are bright red non granular tissue with no drainage or odor noted.Patient currently has condom catheter in place but states it always comes off wetting bed.Cotton underpad noted to be moist and was removed from under patient.Ultrasorb pad was placed under patient for moisture control.Incontinent care performed then Calazime 2mm thick cream applied to bilateral buttocks.Patient was offloaded to right side with the assistance of Linh JOHNS, DEVAUGHN and pillows .Report given to Abhishek JOHNS.Patient/spouse had no further questions or concerns. Nini Reyes [facility] Dec 26, 2017 14:31
[2017-12-26] MEDS: ACETAMINOPHEN 325 MG TAB PO PRN ×2 (14:37→20:32)
[2017-12-26] MEDS ORDERED: PHARMACY ORDERED LAB ONE (16:45)
[2017-12-26] MEDS: ZOLPIDEM TARTRATE 5 MG TAB PO PRN (20:30)
--- NOTE | 2017-12-26 22:55 | EKG ---
Date Performed: 12/26/2017 Time Performed: 11:27:36 PTAGE: 72 years EKG: Atrial fibrillation Poor R wave progression - probable normal variant Septal ST-T changes a re nonspecific Low QRS voltages in limb leads Abnormal ECG NO PREVIOUS TRACING DOCTOR: Cam Kendrick Interpretating Date/Time 12/26/2017 22:54:27
[2017-12-27] VITALS (16 sets, daily range): BP systolic 131–150; BP diastolic 70–81; PULSE 73–96; RESP 18–20; TEMP 97.7–99.4; O2SAT 92–100
[2017-12-27] MEDS: RESP: ALBUTEROL 2.5 MG/IPRATROPIUM 0.5 MG NEB (SCH) NEB ×3 (00:40→09:46)
[2017-12-27] MEDS ORDERED: FUROSEMIDE 40 MG/4 ML VIAL IV PUSH ONE (01:15)
--- NOTE | 2017-12-27 03:13 | RADRPT ---
EXAM DATE/TIME: 12/27/2017 01:54 [facility] COMPARISON: CHEST SINGLE AP, December 24, 2017, 10:34. INDICATIONS : Dyspnea. MEDICAL HISTORY : Chronic obstructive pulmonary disease. Cerebrovascular disease. Hypertension. Lymphoma SURGICAL HISTORY : [id number] ENCOUNTER: Initial ACUITY: 2 days PAIN SCORE: 0/10 LOCATION: Bilateral chest FINDINGS: Worsening consolidations in the lungs particularly at the bases. Small right effusion. Heart is guevara l in size. Right-sided Port-A-Cath. CONCLUSION: Worsening infiltrates. Siva Bean Jr., MD on December 27, 2017 at 3:10 Board Certified Radiologist. This report was verified electronically.
[2017-12-27] MEDS: LORazepam 1 MG TAB PO PRN ×2 (03:19→11:52)
[2017-12-27] MEDS: CEFEPIME INJ 1,000 MG in SODIUM CHLORIDE 0.9% INJ 100 ML IV SCH (05:54)
[2017-12-27 06:18] LABS: AUTOMATED NEUTROPHIL # 23.1 TH/MM3 (1.8-7.7); BASOPHIL % 0.1 % (0.0-2.0); HEMATOCRIT 24.4 % (39.0-51.0); HEMOGLOBIN 8.2 GM/DL (13.0-17.0); LYMPH % 1.1 % (9.0-44.0); LYMPHOCYTE # 0.3 TH/MM3 (1.0-4.8); MEAN CELL VOLUME 83.3 FL (80.0-100.0); MEAN CORPUSCULAR HEMOGLOBIN 27.9 PG (27.0-34.0); MEAN CORPUSCULAR HGB CONC 33.6 % (32.0-36.0); MEAN PLATELET VOLUME 7.5 FL (7.0-11.0); MONO % 2.1 % (0.0-8.0); MONOCYTE # 0.5 TH/MM3 (0-0.9); NEUT % 96.7 % (16.0-70.0); PLATELET COUNT 341 TH/MM3 (150-450); RED BLOOD COUNT 2.93 MIL/MM3 (4.50-5.90); RED CELL DISTRIBUTION WIDTH 19.6 % (11.6-17.2); WHITE BLOOD COUNT 23.9 TH/MM3 (4.0-11.0)
[2017-12-27 07:06] LABS: ALBUMIN 1.4 GM/DL (3.4-5.0); BICARBONATE 30.7 MEQ/L (21.0-32.0); CALCIUM 8.2 MG/DL (8.5-10.1); CREATININE 0.97 MG/DL (0.60-1.30); DIRECT BILIRUBIN ADULT 0.1 MG/DL (0.0-0.2); INDIRECT BILIRUBIN 0.2 MG/DL (0.0-0.8); TOTAL BILIRUBIN ADULT 0.3 MG/DL (0.2-1.0); TOTAL PROTEIN 5.2 GM/DL (6.4-8.2)
[2017-12-27] MEDS: SUCRALFATE 1 GM/10 ML CUP PO SCH ×2 (08:00→12:00)
[2017-12-27] MEDS: INSULIN ASPART SUPPLEMENTAL SCALE SQ SCH ×4 (08:00→20:11)
--- NOTE | 2017-12-27 08:11 | HHI.PR ---
Subjective Remarks This is a pleasant 72 y/o male with Hypertension, Hyperlipidemia, COPD, peripheral Neuropathy with newly diagnosed anaplastic large cell lymphoma Initially admitted to [facility] on 12/13/17, due to difficulty to breath, received antibiotics, found Pneumonia, He also has had a lump on his left neck since August 2018 which was biopsied and showed anaplastic large cell lymphoma alk negative. The oncologist at [facility] recommended chemotherapy to begin as soon as possible and possible bone marrow aspiration but due to insurance concerns he had to be transferred to [facility] for further treatment. He sees an oncologist in [place] as an outpatient - Dr. Somers. He has seen ENT Dr. Thorne. Developed NSVT while at [facility]. patient seen in his bedroom awaiting for final disposition by Oncology, he is not eating well, will start him on IV fluids, TPN asked, PICC line, Bronchodilator, Mucolytic, Incentive spirometry, Senior Ios Software Engineer evaluation, PEG tube placement, reviewed his Port placed last 12/20/17 and not ready to remove stitches, discussed with nurse Taylor and with his Mrs. Kalani Diaz. 12/24: Seen by GI specialist, scheduled for EGD and PEG tube placement for today , evaluated Chest X ray now in view of laboratory I decide to start him on antibiotics, Vancomycin and Cefepime, asked for blood cultures, Sputum culture, Legionella antigen, Pneumococcal antigen, Infectious disease consult, Lactic Acid stat. discussed with patient and his another relatives in the room. all questions answered. 12/25: Stable in his bedroom, in the presence of his , improving condition, as per Oncology to start Chemotherapy. 12/26: Seen in his bedroom, recommended to continue aggressive diuresis, had CHOP C1D1 yesterday, Next chemotherapy in 3 weeks, to continue Allopurinol and Prednisone, he developed Atrial Fibrillation as per his relative the patient had evaluation by loss prevention specialist while at [facility] asked for loss prevention specialist. 12/27: During the night he had shortness of breath had the need for diuretics, given Furosemide, CXR gave worsening infiltrates, not yet seen by loss prevention specialist, but his Echocardiogram gave EF 60 to 65%, BNP performed stat 110 no signs of Cardiac failure, Troponin less than 0.2, at this time with his in the room ordered by Oncology for regional extension service specialist consult. no nausea , vomit or diarrhea. Objective Vital Signs Date Time Temp Pulse Resp B/P (MAP) Pulse Ox O2 Delivery O2 Flow Rate FiO2 12/27/17 03:50 99 40 12/27/17 02:00 86 12/27/17 01:32 100 40 12/27/17 01:00 88 12/27/17 00:00 98.2 88 18 131/73 (92) 94 12/27/17 00:00 84 12/26/17 23:00 91 12/26/17 22:00 92 12/26/17 21:00 98 12/26/17 20:06 92 Nasal Cannula 4.00 12/26/17 20:00 100 Nasal Cannula 4.00 12/26/17 20:00 98 12/26/17 20:00 97.6 92 18 124/63 (83) 100 12/26/17 19:00 103 12/26/17 18:00 88 12/26/17 17:00 86 12/26/17 16:00 96 12/26/17 15:41 97.6 97 18 118/59 (78) 92 12/26/17 15:22 92 Nasal Cannula 4.00 12/26/17 15:00 91 12/26/17 14:00 82 12/26/17 13:00 84 12/26/17 12:14 98.5 80 18 107/56 (73) 92 12/26/17 12:00 88 12/26/17 11:00 83 12/26/17 10:00 96 12/26/17 09:00 106 12/26/17 08:12 93 Nasal Cannula 5.00 I/O 12/26/17 12/26/17 12/26/17 12/27/17 12/27/17 12/27/17 07:00 15:00 23:00 07:00 15:00 23:00 Intake Total 657 ml 300 ml 440 ml 60 ml Output Total 500 ml 975 ml 1450 ml Balance 157 ml 300 ml -535 ml -1390 ml Intake Oral 240 ml 60 ml IV Total 657 ml 300 ml 200 ml Output Urine Total 500 ml 975 ml 1450 ml # Bowel Movements 0 Result Diagram: 12/27/17 0530 12/27/17 0530 Imaging Last Impressions Chest X-Ray 12/27/17 0000 Signed Impressions: Service Date/Time: December 01:54 - CONCLUSION: Worsening infiltrates. Siva Bean Jr., MD Bone Biopsy CT 12/25/17 1142 Signed Impressions: Service Date/Time: Monday, December 25, 2017 12:32 - CONCLUSION: 1. Uncomplicated CT guided bone marrow aspirate. 2. Uncomplicated CT guided bone marrow biopsy. Lee Mijares MD CT Angiography 12/25/17 0000 Signed Impressions: Service Date/Time: Monday, December 25, 2017 09:26 - CONCLUSION: 1. No CT evidence for pulmonary artery embolism. 2. Moderate to large bilateral pleural effusions with associated compressive atelectasis at the lung bases. 3. 8mm nodule in the right middle lobe. Followup CT examination may be performed at 6 months to document stability if this has not been evaluated previously. 4. Very mildly prominent mediastinal and hilar nodes and partially imaged upper abdominal lymphadenopathy in this patient with history of lymphoma. Miguel Ashton MD Procedures PEG tube placement. Bone Marrow Biopsy 12/25/17 Other Results Laboratory Tests Test 12/23/17 13:25 12/24/17 04:20 12/24/17 09:12 12/24/17 19:30 Hemoglobin A1c 6.0 % Triglycerides Level 52 MG/DL Cholesterol Level 66 MG/DL LDL Cholesterol 28 MG/DL HDL Cholesterol 27.5 MG/DL Cholesterol/HDL Ratio 2.40 RATIO Thiamine Level 203 nmol/L Vitamin B12 Level 1173 PG/ML Folate 13.2 NG/ML Free Thyroxine 1.41 NG/DL Thyroid Stimulating Hormone 3rd Gen 1.180 uIU/ML Erythrocyte Sedimentation Rate 67 mm/hr HIV (1&2) Antibody NEGATIVE Lactic Acid Level 0.9 mmol/L Differential Total Cells Counted 100 Neutrophils % (Manual) 94 % Band Neutrophils % 1 % Lymphocytes % 2 % Monocytes % 3 % Neutrophils # (Manual) 29.6 TH/MM3 Platelet Estimate HIGH Platelet Morphology Comment NORMAL Prothrombin Time 13.3 SEC Prothromb Time International Ratio 1.3 RATIO Activated Partial Thromboplast Time 26.4 SEC Test 12/25/17 12:30 12/25/17 15:20 12/26/17 04:50 12/27/17 05:30 Blood Gas Puncture Site RT RADIAL Blood Gas Patient Temperature 98.6 Blood Gas HCO3 28 mmol/L Blood Gas Base Excess 4.2 mmol/L Blood Gas Oxygen Saturation 89 % Arterial Blood pH 7.43 Arterial Blood Partial Pressure CO2 44 mmHg Arterial Blood Partial Pressure O2 63 mmHg Arterial Blood Oxygen Content 12.2 Vol % Arterial Blood Carboxyhemoglobin 1.5 % Arterial Blood Methemoglobin 1.1 % Blood Gas Hemoglobin 9.7 G/DL Oxygen Delivery Device NASAL CANNULA Blood Gas Liter Flow 5 L/M Phosphorus Level 3.2 MG/DL Magnesium Level 2.3 MG/DL White Blood Count 23.9 TH/MM3 Red Blood Count 2.93 MIL/MM3 Hemoglobin 8.2 GM/DL Hematocrit 24.4 % Mean Corpuscular Volume 83.3 FL Mean Corpuscular Hemoglobin 27.9 PG Mean Corpuscular Hemoglobin Concent 33.6 % Red Cell Distribution Width 19.6 % Platelet Count 341 TH/MM3 Mean Platelet Volume 7.5 FL Neutrophils (%) (Auto) 96.7 % Lymphocytes (%) (Auto) 1.1 % Monocytes (%) (Auto) 2.1 % Eosinophils (%) (Auto) 0.0 % Basophils (%) (Auto) 0.1 % Neutrophils # (Auto) 23.1 TH/MM3 Lymphocytes # (Auto) 0.3 TH/MM3 Monocytes # (Auto) 0.5 TH/MM3 Eosinophils # (Auto) 0.0 TH/MM3 Basophils # (Auto) 0.0 TH/MM3 CBC Comment DIFF FINAL Differential Comment Blood Urea Nitrogen 34 MG/DL Creatinine 0.97 MG/DL Random Glucose 194 MG/DL Total Protein 5.2 GM/DL Albumin 1.4 GM/DL Calcium Level 8.2 MG/DL Uric Acid 3.7 MG/DL Alkaline Phosphatase 114 U/L Aspartate Amino Transf (AST/SGOT) 44 U/L Alanine Aminotransferase (ALT/SGPT) 45 U/L Lactate Dehydrogenase 158 U/L Total Bilirubin 0.3 MG/DL Direct Bilirubin 0.1 MG/DL Sodium Level 146 MEQ/L Potassium Level 3.2 MEQ/L Chloride Level 108 MEQ/L Carbon Dioxide Level 30.7 MEQ/L Anion Gap 7 MEQ/L Estimat Glomerular Filtration Rate 76 ML/MIN Indirect Bilirubin 0.2 MG/DL Objective Remarks GENERAL: Well developed in no acute distress, resting comfortable. SKIN: No rashes. Cool and dry. Right chest wall port HEAD: Atraumatic. Normocephalic. EYES: No scleral icterus. No injection or drainage. ENT: Nose without bleeding, purulent drainage. NECK: Trachea midline. No JVD. Left supraclavicular lymphadenopathy palpated, fixed. CARDIOVASCULAR: Irregular rate and rhythm. no murmurs. RESPIRATORY: Breath sounds diminished at bases equal bilaterally. No wheezes, rales, or rhonchi. GASTROINTESTINAL: Abdomen soft, non-tender, nondistended. No guarding. MUSCULOSKELETAL: Extremities without clubbing, cyanosis, Edema 2+ NEUROLOGICAL: Awake and alert. no focal deficits. . Medications and IVs Current Medications Medications (Trade) Dose Ordered Sig/Candace Route Start Time Stop Time Status Last Admin (NS Flush) 2 ml UNSCH PRN IV FLUSH 12/22/17 18:15 (NS Flush) 2 ml BID IV FLUSH 12/22/17 21:00 12/26/17 09:21 (Zofran Inj) 4 mg Q6H PRN IVP 12/22/17 18:15 (Narcan Inj) 0.4 mg UNSCH PRN IV PUSH 12/22/17 18:15 (Mary Kay-Colace) 1 tab BID PO 12/22/17 21:00 12/26/17 09:19 (Milk Of Magnesia Liq) 30 ml Q12H PRN PO 12/22/17 18:15 (Senokot) 17.2 mg Q12H PRN PO 12/22/17 18:15 (Lactulose Liq) 30 ml DAILY PRN PO 12/22/17 18:15 (Ativan) 1 mg Q8H PRN PO 12/22/17 20:15 12/27/17 03:19 (Duoneb Neb) 1 ampule Q4HR NEB PRN NEB 12/22/17 20:15 12/24/17 18:10 (Ambien) 5 mg HS PRN PO 12/22/17 20:15 12/26/17 20:30 (Carafate Liq) 1 gm ACHS PO 12/22/17 21:00 12/26/17 20:31 (Protonix) 40 mg Q12HR PO 12/22/17 21:00 12/26/17 20:32 (Lopressor) 50 mg Q12HR PO 12/22/17 21:00 12/26/17 20:32 (Megace Liq) 800 mg DAILY PO 12/23/17 09:00 12/26/17 09:19 (Colace) 100 mg BID PO 12/22/17 21:00 12/26/17 09:20 (Symbicort 160-4.5 Mcg Inh) 1 puff Q12HR INH 12/22/17 21:00 12/26/17 20:29 (Ecotrin Ec) 81 mg DAILY PO 12/23/17 09:00 12/26/17 09:19 (Lipitor) 80 mg DAILY PO 12/23/17 09:00 12/26/17 09:19 (Theragran) 1 tab DAILY PO 12/23/17 09:00 12/26/17 09:19 (Heparin Central Flush) 500 units UNSCH IV FLUSH 12/22/17 20:30 (NS Flush) 5 ml UNSCH PRN IVF 12/22/17 20:30 (Heparin Central Flush) 250 units UNSCH PRN IV FLUSH 12/22/17 20:30 (D50w (Vial) Inj) 50 ml UNSCH PRN IV PUSH 12/22/17 20:30 (Glucagon Inj) 1 mg UNSCH PRN OTHER 12/22/17 20:30 (NovoLOG SUPPLEMENTAL SCALE) 1 ACHS SLIDING SCALE SQ 12/22/17 21:00 12/26/17 21:25 (Robitussin Dm 200-20 Mg/10 ml Liq) 10 ml Q4H PRN PO 12/22/17 21:00 12/26/17 18:27 (Percocet 5-325 Mg) 1 tab Q4H PRN PO 12/22/17 23:00 (Duoneb Neb) 1 ampule Q4HR NEB NEB 12/23/17 12:00 12/27/17 00:40 (Mucinex Er) 600 mg BID PO 12/23/17 21:00 12/26/17 20:33 (Tessalon) 100 mg TID PRN PO 12/25/17 12:00 (Zyloprim) 300 mg DAILY PO 12/26/17 09:00 12/26/17 09:20 Cefepime HCl 1000 mg/Sodium Chloride 100 ml @ 200 mls/hr Q8H IV 12/25/17 21:00 12/27/17 05:54 (Tylenol) 650 mg Q4H PRN PO 12/26/17 14:45 12/26/17 20:32 A/P Assessment and Plan (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 Diaz is a 72 y/o male with a history of newly diagnosed anaplastic large cell lymphoma who was transferred from [facility] sent to our facility to continue his management. due to insurance reasons. Anaplastic large cell lymphoma ALK negative, Awaiting case manager specialist for management. Port evaluated stitches not ready for removal. - Pain medicine, case manager specialist consulted, Zofran for nausea and vomit, IV fluids, Consult medical oncology - appreciate assistance with treatment - IV fluids, TPN asked, PICC line, Bronchodilator, Mucolytic, Incentive spirometry, Senior Ios Software Engineer evaluation, status post PEG placement, status post CHOP chemotherapy given yesterday and will give one in three weeks. COPD - Supplemental oxygen as needed - Continue Proventil inhalers - Bronchodilator, Mucolytic and incentive spirometry. - Continue prednisone 5 mg by mouth daily, the patient may have this Leukocytosis secondary to Steroid use, but he has bilateral lower lobe consolidations, not transferred with antibiotics, considered for possible Lymphoma instead of real infection, removed Vancomycin and continue Cefepime. worsening infiltrates on CXR, no signs of Congestive Heart failure. Respiratory Insufficiency BNP 110, Echocardiogram EF 60-65%, regional extension service specialist following, Oxygen to keep Oxygen saturation >92%. Anxiety - Continue lorazepam 1 mg by mouth every 8 hours when necessary for moderate to severe anxiety Hyperlipidemia - Continue home atorvastatin 80 mg by mouth daily Hypertension - Continue metoprolol 50 mg by mouth every 12 hours Steroid-induced hyperglycemia - We'll continue Accu-Cheks before meals and at bedtime with low-dose NovoLog sliding scale coverage - Monitor trends and blood glucose levels and adjust treatments accordingly Hx of NSVT at [facility] per record review - continuous cardiac telemetry to monitor for dysrhythmia - patient will need stress test as an outpatient at some point in time - nuclear med MUGA scan showed EF 81% at [facility] - today new onset of Atrial Fibrillation asked for Echocardiogram, continue Beta blockers and Cardiology consult. Hypokalemia replaced and following. DVT prophylaxis - SCDs . Discussed Condition With Patient and his . Discharge Planning Once Cleared by Specialists. Nils Nichols MD Dec 27, 2017 08:11
[2017-12-27] MEDS ORDERED: POTASSIUM CHLOR 20 MEQ PREMIX 100 ML IV SCH (08:15)
[2017-12-27] MEDS: ALLOPURINOL 300 MG TAB PO SCH (09:00)
[2017-12-27] MEDS: BUDESONIDE-FORMOTEROL 160/4.5 MCG INHALER INH SCH ×2 (09:00→20:27)
[2017-12-27] MEDS: DOCUSATE SODIUM 100 MG CAP PO SCH (09:00)
[2017-12-27] MEDS: ATORVASTATIN 80 MG TAB PO SCH (09:00)
[2017-12-27] MEDS: MEGESTROL ACETATE SUSP 400 MG/10 ML CUP PO SCH (09:00)
[2017-12-27] MEDS: ASPIRIN EC 81 MG TABEC PO SCH (09:00)
[2017-12-27] MEDS: POTASSIUM CHLOR 10 MEQ PREMIX 100 ML IV SCH ×4 (09:30→12:02)
[2017-12-27 10:39] LABS: TROPONIN I 0.02 NG/ML (0.02-0.05)
--- NOTE | 2017-12-27 11:37 | PD.ONC.PN ---
Subjective Subjective Remarks Afebrile overnight. Patient more dyspneic than yesterday despite diuretics. had difficulty sleeping last night. No other complaints. Objective Data Date Time Temp Pulse Resp B/P (MAP) Pulse Ox O2 Delivery O2 Flow Rate FiO2 12/27/17 10:29 2.00 12/27/17 10:29 94 12/27/17 09:49 92 Nasal Cannula 2.00 12/27/17 08:00 97.7 73 20 139/70 (93) 92 12/27/17 03:50 99 40 12/27/17 02:00 86 12/27/17 01:32 100 40 12/27/17 01:00 88 12/27/17 00:00 98.2 88 18 131/73 (92) 94 12/27/17 00:00 84 12/26/17 23:00 91 12/26/17 22:00 92 12/26/17 21:00 98 12/26/17 20:06 92 Nasal Cannula 4.00 12/26/17 20:00 100 Nasal Cannula 4.00 12/26/17 20:00 98 12/26/17 20:00 97.6 92 18 124/63 (83) 100 12/26/17 19:00 103 12/26/17 18:00 88 12/26/17 17:00 86 12/26/17 16:00 96 12/26/17 15:41 97.6 97 18 118/59 (78) 92 12/26/17 15:22 92 Nasal Cannula 4.00 12/26/17 15:00 91 12/26/17 14:00 82 12/26/17 13:00 84 12/26/17 12:14 98.5 80 18 107/56 (73) 92 12/26/17 12:00 88 12/27/17 12/27/17 12/27/17 07:00 15:00 23:00 Intake Total 60 ml Output Total 1450 ml Balance -1390 ml Result Diagram: 12/27/1730 12/27/17 0530 Laboratory Results Laboratory Tests Test 12/27/17 05:30 12/27/17 08:45 White Blood Count 23.9 TH/MM3 Red Blood Count 2.93 MIL/MM3 Hemoglobin 8.2 GM/DL Hematocrit 24.4 % Mean Corpuscular Volume 83.3 FL Mean Corpuscular Hemoglobin 27.9 PG Mean Corpuscular Hemoglobin Concent 33.6 % Red Cell Distribution Width 19.6 % Platelet Count 341 TH/MM3 Mean Platelet Volume 7.5 FL Neutrophils (%) (Auto) 96.7 % Lymphocytes (%) (Auto) 1.1 % Monocytes (%) (Auto) 2.1 % Eosinophils (%) (Auto) 0.0 % Basophils (%) (Auto) 0.1 % Neutrophils # (Auto) 23.1 TH/MM3 Lymphocytes # (Auto) 0.3 TH/MM3 Monocytes # (Auto) 0.5 TH/MM3 Eosinophils # (Auto) 0.0 TH/MM3 Basophils # (Auto) 0.0 TH/MM3 CBC Comment DIFF FINAL Differential Comment Blood Urea Nitrogen 34 MG/DL Creatinine 0.97 MG/DL Random Glucose 194 MG/DL Total Protein 5.2 GM/DL Albumin 1.4 GM/DL Calcium Level 8.2 MG/DL Uric Acid 3.7 MG/DL Alkaline Phosphatase 114 U/L Aspartate Amino Transf (AST/SGOT) 44 U/L Alanine Aminotransferase (ALT/SGPT) 45 U/L Lactate Dehydrogenase 158 U/L Total Bilirubin 0.3 MG/DL Direct Bilirubin 0.1 MG/DL Sodium Level 146 MEQ/L Potassium Level 3.2 MEQ/L Chloride Level 108 MEQ/L Carbon Dioxide Level 30.7 MEQ/L Anion Gap 7 MEQ/L Estimat Glomerular Filtration Rate 76 ML/MIN Indirect Bilirubin 0.2 MG/DL Total Creatine Kinase 373 U/L Creatine Kinase MB 1.2 NG/ML Creatine Kinase MB % 0.3 % Troponin I 0.02 NG/ML B-Type Natriuretic Peptide 110 PG/ML Imaging Studies Last 24 hours Impressions Chest X-Ray 12/27/17 0000 Signed Impressions: Service Date/Time: December 01:54 - CONCLUSION: Worsening infiltrates. Siva Bean Jr., MD Administered Medications Medications (Trade) Dose Ordered Sig/Candace Route PRN Reason Start Time Stop Time Status Last Admin Dose Admin Sodium Chloride (NS Flush) 2 ml BID IV FLUSH 12/22/17 21:00 12/26/17 09:21 Senna/Docusate Sodium (Mary Kay-Colace) 1 tab BID PO 12/22/17 21:00 12/26/17 09:19 Lorazepam (Ativan) 1 mg Q8H PRN PO MODERATE TO SEVERE ANXIETY 12/22/17 20:15 12/27/17 03:19 Albuterol/ Ipratropium (Duoneb Neb) 1 ampule Q4HR NEB PRN NEB SOB/WHEEZING 12/22/17 20:15 12/24/17 18:10 Zolpidem Tartrate (Ambien) 5 mg HS PRN PO INSOMNIA 12/22/17 20:15 12/26/17 20:30 Sucralfate (Carafate Liq) 1 gm ACHS PO 12/22/17 21:00 12/26/17 20:31 Pantoprazole Sodium (Protonix) 40 mg Q12HR PO 12/22/17 21:00 12/26/17 20:32 Metoprolol Tartrate (Lopressor) 50 mg Q12HR PO 12/22/17 21:00 12/26/17 20:32 Megestrol Acetate (Megace Liq) 800 mg DAILY PO 12/23/17 09:00 12/26/17 09:19 Docusate Sodium (Colace) 100 mg BID PO 12/22/17 21:00 12/26/17 09:20 Budesonide/ Formoterol Fumarate (Symbicort 160-4.5 Mcg Inh) 1 puff Q12HR INH 12/22/17 21:00 12/26/17 20:29 Aspirin (Ecotrin Ec) 81 mg DAILY PO 12/23/17 09:00 12/26/17 09:19 Atorvastatin Calcium (Lipitor) 80 mg DAILY PO 12/23/17 09:00 12/26/17 09:19 Multivitamins (Theragran) 1 tab DAILY PO 12/23/17 09:00 12/26/17 09:19 Insulin Aspart (NovoLOG SUPPLEMENTAL SCALE) 1 ACHS SLIDING SCALE SQ 12/22/17 21:00 12/26/17 21:25 Guaifenesin/ Dextromethorphan (Robitussin Dm 200-20 Mg/10 ml Liq) 10 ml Q4H PRN PO cough interfering with rest 12/22/17 21:00 12/26/17 18:27 Albuterol/ Ipratropium (Duoneb Neb) 1 ampule Q4HR NEB NEB 12/23/17 12:00 12/27/17 09:46 Guaifenesin (Mucinex Er) 600 mg BID PO 12/23/17 21:00 12/26/17 20:33 Allopurinol (Zyloprim) 300 mg DAILY PO 12/26/17 09:00 12/26/17 09:20 Cefepime HCl 1000 mg/Sodium Chloride 100 ml @ 200 mls/hr Q8H IV 12/25/17 21:00 12/27/17 05:54 Acetaminophen (Tylenol) 650 mg Q4H PRN PO PAIN 1 TO 8 12/26/17 14:45 12/26/17 20:32 Objective Remarks GENERAL: chronically ill appearing dyspneic male, lying supine in bed resting. on O2 via NC SKIN: Warm and dry. HEAD: Normocephalic. EYES: No injection or drainage. NECK: Supple, trachea midline. CARDIOVASCULAR: +S1/S2, tachy RESPIRATORY: scatterd coarse rhonchi. GASTROINTESTINAL: Abdomen soft, non-tender, nondistended. receiving TF via PEG tube EXTREMITIES: No cyanosis. mild edema, ble. NEUROLOGICAL: awake and alert, normal speech. 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 consult pulmonology for worsening infiltrates, pleural effusions. monitor CBC, counts dropping. 12/26: CT chest shows Bilateral Pl effusion. Continue aggressive diuresis. Had CHOP C1D1 yesterday. Tolerated well. Next chemo in 3 weeks as outpt. Continue allopurinol and prednisone. 12/25: CTA shows no PE. +LAD, PE. dyspnea likely d/t lymphoma. will give Solu- medrol 1g IV and start CHOP today. Anaplastic large cell, non-Hodgkin's lymphoma, at least stage III. --unclear whether he has any B symptoms, but this could be most likely given that he has significant weight loss, which is one of the symptoms of lymphoma. --Leukocytosis, anemia and neutrophilia, most likely due to bone marrow involvement by the lymphoma until proven otherwise. (2) Malnutrition ICD Codes: E46 - Unspecified protein-calorie malnutrition Plan: --tolerating Jevity 1.5 @ 50cc/hr --s/p PEG tube placement (3) Respiratory insufficiency ICD Codes: R06.89 - Other abnormalities of breathing Plan: --CTA showed no PE. --d/t pleural effusions, infiltrates d/t lymphoma. --s/p CHOP chemotherapy and Solu-medrol 1G IV --now on solu-medrol 40mg IV q 6 hours + PRN Duonebs. --pulmonology consulted for further assistance. (4) Atrial fibrillation ICD Codes: I48.91 - Unspecified atrial fibrillation Plan: --cardiology consulted. (5) Decubitus skin ulcer ICD Codes: L89.90 - Pressure ulcer of unspecified site, unspecified stage Plan: --wound care following. Assessment 72y/o male with newly diagnosed anaplastic large cell NHL. h/o COPD, hypercholesterolemia, hypertension, history of previous stroke. HPI: started 8 weeks ago with a cough mixed with greenish phlegm and shortness of breath. CT cap showed diffuse lymphadenopathy on both sides of the diaphragm. PET scan showed increased uptake in the lymph nodes involving the neck, chest, mediastinal and hilar area, retroperitoneum and pelvic lymph nodes. biopsy of the left neck mass=anaplastic large cell NHL echocardiogram, LVEF=55-70%. MUGA scan, showed EF of 60%. Attending Statement The exam, history, and the medical decision-making described in the above note were completed with the assistance of the mid-level provider. I reviewed and agree with the findings presented. I attest that I had a [id number] encounter with the patient on the same day, and personally performed and documented my assessment and findings in the medical record. More SOB with gurgling wet sounds. Start solumedrol 40 mg IV q 6 Consult pulmonary. Problem Qualifiers (1) Malnutrition: Qualified Codes: E46 - Unspecified protein-calorie malnutrition Susy La Dec 27, 2017 11:37 Josy Suarez MD Dec 27, 2017 13:03
[2017-12-27] MEDS: methylPREDNISolone SOD SUCC 40 MG/1 ML VIAL IV PUSH SCH ×3 (11:44→23:00)
[2017-12-27] MEDS: SODIUM CHLORIDE 0.9% FLUSH 10 ML FLUSH IV FLUSH SCH ×2 (12:02→20:12)
[2017-12-27] MEDS: MULTIVITAMIN TAB PO SCH (12:03)
[2017-12-27] MEDS: guaiFENesin E.R. 600 MG TAB PO SCH ×2 (12:04→20:11)
[2017-12-27] MEDS: PANTOPRAZOLE SOD 40 MG DELAYED RELEASE TAB PO SCH ×2 (12:04→20:11)
[2017-12-27] MEDS: DOCUSATE SODIUM 50 MG/SENNA 8.6 MG TAB PO SCH ×2 (12:04→20:11)
[2017-12-27] MEDS: METOPROLOL TARTRATE 50 MG TAB PO SCH ×2 (12:04→20:11)
[2017-12-27] MEDS: RESP: ALBUTEROL 2.5 MG/IPRATROPIUM 0.5 MG NEB (PRN) NEB ×2 (12:13→22:54)
--- NOTE | 2017-12-27 12:32 | HHI.IDPN ---
Note Infectious Disease Note Patient patient had difficulty breathing all night. states that he got very little sleep. Currently receiving aerosolized breathing treatment. He has a cough and is congested but not producing any sputum. Having difficulty getting sputum up. Feels weak. Afebrile. Chest x-ray reported to be worse today. 72-year-old white male who was diagnosed with lymphoma. The patient was noted to have become ill 2 months ago. He was noted to have cough and he was given 3 rounds of oral antibiotics without improvement of the cough. Subsequent workup revealed mediastinal adenopathy and other areas of adenopathy, and a biopsy of the lesion of the neck came back showing lymphoma. During his stay at [facility], he had no fever. He was given antibiotics. An Infusaport was placed on 12/20 for anticipated chemotherapy. PAST MEDICAL HISTORY: Stage IIIB anaplastic large cell lymphoma, COPD, hypertension, hyperlipidemia, history of CVA without residual deficits, nonsustained V-tach at [facility], neuropathy of the lower extremities, back surgery, Infusaport placement on 12/20/2017. ALLERGIES: HYDROCODONE. MEDICATIONS: Current Medications Medications (Trade) Dose Ordered Sig/Candace Route PRN Reason Start Time Stop Time Status Last Admin Dose Admin Sodium Chloride (NS Flush) 2 ml UNSCH PRN IV FLUSH FLUSH AFTER USING IV ACCESS 12/22/17 18:15 Sodium Chloride (NS Flush) 2 ml BID IV FLUSH 12/22/17 21:00 12/27/17 12:02 Ondansetron HCl (Zofran Inj) 4 mg Q6H PRN IVP NAUSEA OR VOMITING 12/22/17 18:15 Naloxone HCl (Narcan Inj) 0.4 mg UNSCH PRN IV PUSH SEE LABEL COMMENTS 12/22/17 18:15 Senna/Docusate Sodium (Mary Kay-Colace) 1 tab BID PO 12/22/17 21:00 12/27/17 12:04 Magnesium Hydroxide (Milk Of Magnesia Liq) 30 ml Q12H PRN PO Mild constipation 12/22/17 18:15 Sennosides (Senokot) 17.2 mg Q12H PRN PO Moderate constipation 12/22/17 18:15 Lactulose (Lactulose Liq) 30 ml DAILY PRN PO SEVERE CONSITIPATION 12/22/17 18:15 Lorazepam (Ativan) 1 mg Q8H PRN PO MODERATE TO SEVERE ANXIETY 12/22/17 20:15 12/27/17 11:52 Albuterol/ Ipratropium (Duoneb Neb) 1 ampule Q4HR NEB PRN NEB SOB/WHEEZING 12/22/17 20:15 12/27/17 12:13 Zolpidem Tartrate (Ambien) 5 mg HS PRN PO INSOMNIA 12/22/17 20:15 12/26/17 20:30 Sucralfate (Carafate Liq) 1 gm ACHS PO 12/22/17 21:00 12/26/17 20:31 Pantoprazole Sodium (Protonix) 40 mg Q12HR PO 12/22/17 21:00 12/27/17 12:04 Metoprolol Tartrate (Lopressor) 50 mg Q12HR PO 12/22/17 21:00 12/27/17 12:04 Megestrol Acetate (Megace Liq) 800 mg DAILY PO 12/23/17 09:00 12/26/17 09:19 Docusate Sodium (Colace) 100 mg BID PO 12/22/17 21:00 12/27/17 09:00 Budesonide/ Formoterol Fumarate (Symbicort 160-4.5 Mcg Inh) 1 puff Q12HR INH 12/22/17 21:00 12/27/17 09:00 Aspirin (Ecotrin Ec) 81 mg DAILY PO 12/23/17 09:00 12/27/17 09:00 Atorvastatin Calcium (Lipitor) 80 mg DAILY PO 12/23/17 09:00 12/27/17 09:00 Multivitamins (Theragran) 1 tab DAILY PO 12/23/17 09:00 12/27/17 12:03 Heparin Sodium (Porcine) (Heparin Central Flush) 500 units UNSCH IV FLUSH 12/22/17 20:30 Sodium Chloride (NS Flush) 5 ml UNSCH PRN IVF SEE PROTOCOL 12/22/17 20:30 Heparin Sodium (Porcine) (Heparin Central Flush) 250 units UNSCH PRN IV FLUSH SEE PROTOCOL 12/22/17 20:30 Dextrose (D50w (Vial) Inj) 50 ml UNSCH PRN IV PUSH HYPOGLYCEMIA-SEE COMMENTS 12/22/17 20:30 Glucagon (Glucagon Inj) 1 mg UNSCH PRN OTHER HYPOGLYCEMIA-SEE COMMENTS 12/22/17 20:30 Insulin Aspart (NovoLOG SUPPLEMENTAL SCALE) 1 ACHS SLIDING SCALE SQ 12/22/17 21:00 12/26/17 21:25 Guaifenesin/ Dextromethorphan (Robitussin Dm 200-20 Mg/10 ml Liq) 10 ml Q4H PRN PO cough interfering with rest 12/22/17 21:00 12/26/17 18:27 Oxycodone/ Acetaminophen (Percocet 5-325 Mg) 1 tab Q4H PRN PO PAIN SCALE 9 TO 10 12/22/17 23:00 Guaifenesin (Mucinex Er) 600 mg BID PO 12/23/17 21:00 12/27/17 12:04 Benzonatate (Tessalon) 100 mg TID PRN PO cough 12/25/17 12:00 Allopurinol (Zyloprim) 300 mg DAILY PO 12/26/17 09:00 12/27/17 09:00 Cefepime HCl 1000 mg/Sodium Chloride 100 ml @ 200 mls/hr Q8H IV 12/25/17 21:00 12/27/17 05:54 Acetaminophen (Tylenol) 650 mg Q4H PRN PO PAIN 1 TO 8 12/26/17 14:45 12/26/17 20:32 Methylprednisolone Sodium Succinate (SoluMEDROL INJ) 40 mg Q6HR IV PUSH 12/27/17 12:00 12/27/17 11:44 Potassium Chloride 100 ml @ 100 mls/hr Q1H IV 12/27/17 08:30 12/27/17 12:29 12/27/17 09:30 SOCIAL HISTORY: Patient is . Patient is a prior smoker. No alcohol use. No illicit drugs. OBJECTIVE: Vital Signs Date Time Temp Pulse Resp B/P (MAP) Pulse Ox O2 Delivery O2 Flow Rate FiO2 12/27/17 12:00 99.4 81 18 136/76 (96) 93 12/27/17 10:29 2.00 12/27/17 10:29 94 12/27/17 09:49 92 Nasal Cannula 2.00 12/27/17 08:00 97.7 73 20 139/70 (93) 92 12/27/17 03:50 99 40 12/27/17 02:00 86 12/27/17 01:32 100 40 12/27/17 01:00 88 12/27/17 00:00 98.2 88 18 131/73 (92) 94 12/27/17 00:00 84 12/26/17 23:00 91 12/26/17 22:00 92 12/26/17 21:00 98 12/26/17 20:06 92 Nasal Cannula 4.00 12/26/17 20:00 100 Nasal Cannula 4.00 12/26/17 20:00 98 12/26/17 20:00 97.6 92 18 124/63 (83) 100 12/26/17 19:00 103 12/26/17 18:00 88 12/26/17 17:00 86 12/26/17 16:00 96 12/26/17 15:41 97.6 97 18 118/59 (78) 92 12/26/17 15:22 92 Nasal Cannula 4.00 12/26/17 15:00 91 12/26/17 14:00 82 12/26/17 13:00 84 Laboratory Tests Test 12/26/17 04:50 12/27/17 05:30 White Blood Count 26.8 TH/MM3 23.9 TH/MM3 Red Blood Count 3.20 MIL/MM3 2.93 MIL/MM3 Hemoglobin 8.9 GM/DL 8.2 GM/DL Hematocrit 27.1 % 24.4 % Mean Corpuscular Volume 84.9 FL 83.3 FL Mean Corpuscular Hemoglobin 27.9 PG 27.9 PG Mean Corpuscular Hemoglobin Concent 32.9 % 33.6 % Red Cell Distribution Width 18.6 % 19.6 % Platelet Count 380 TH/MM3 341 TH/MM3 Mean Platelet Volume 7.8 FL 7.5 FL Neutrophils (%) (Auto) 97.6 % 96.7 % Lymphocytes (%) (Auto) 1.0 % 1.1 % Monocytes (%) (Auto) 1.4 % 2.1 % Eosinophils (%) (Auto) 0.0 % 0.0 % Basophils (%) (Auto) 0.0 % 0.1 % Neutrophils # (Auto) 26.1 TH/MM3 23.1 TH/MM3 Lymphocytes # (Auto) 0.3 TH/MM3 0.3 TH/MM3 Monocytes # (Auto) 0.4 TH/MM3 0.5 TH/MM3 Eosinophils # (Auto) 0.0 TH/MM3 0.0 TH/MM3 Basophils # (Auto) 0.0 TH/MM3 0.0 TH/MM3 CBC Comment DIFF FINAL DIFF FINAL Differential Comment Laboratory Tests Test 12/26/17 04:50 12/27/17 05:30 12/27/17 08:45 Blood Urea Nitrogen 26 MG/DL 34 MG/DL Creatinine 0.78 MG/DL 0.97 MG/DL Random Glucose 147 MG/DL 194 MG/DL Total Protein 5.3 GM/DL 5.2 GM/DL Albumin 1.4 GM/DL 1.4 GM/DL Calcium Level 8.3 MG/DL 8.2 MG/DL Uric Acid 3.4 MG/DL 3.7 MG/DL Alkaline Phosphatase 119 U/L 114 U/L Aspartate Amino Transf (AST/SGOT) 22 U/L 44 U/L Alanine Aminotransferase (ALT/SGPT) 30 U/L 45 U/L Lactate Dehydrogenase 148 U/L 158 U/L Total Bilirubin 0.3 MG/DL 0.3 MG/DL Direct Bilirubin 0.1 MG/DL 0.1 MG/DL Sodium Level 144 MEQ/L 146 MEQ/L Potassium Level 3.4 MEQ/L 3.2 MEQ/L Chloride Level 107 MEQ/L 108 MEQ/L Carbon Dioxide Level 29.3 MEQ/L 30.7 MEQ/L Anion Gap 8 MEQ/L 7 MEQ/L Estimat Glomerular Filtration Rate 98 ML/MIN 76 ML/MIN Phosphorus Level 3.2 MG/DL Magnesium Level 2.3 MG/DL Indirect Bilirubin 0.2 MG/DL 0.2 MG/DL Total Creatine Kinase 373 U/L Creatine Kinase MB 1.2 NG/ML Creatine Kinase MB % 0.3 % Troponin I 0.02 NG/ML B-Type Natriuretic Peptide 110 PG/ML Microbiology Date/Time Source Procedure Growth Status 12/24/17 09:17 Blood Peripheral Aerobic Blood Culture - Preliminary NO GROWTH IN 2 DAYS Resulted 12/24/17 09:17 Blood Peripheral Anaerobic Blood Culture - Preliminary NO GROWTH IN 2 DAYS Resulted 12/24/17 09:12 Blood Peripheral Aerobic Blood Culture - Preliminary NO GROWTH IN 2 DAYS Resulted 12/24/17 09:12 Blood Peripheral Anaerobic Blood Culture - Preliminary NO GROWTH IN 2 DAYS Resulted IMAGING: Chest X-Ray 12/27/17 0000 Signed Impressions: Service Date/Time: December 01:54 - CONCLUSION: Worsening infiltrates. Siva Bean Jr., MD Bone Biopsy CT 12/25/17 1142 Signed Impressions: Service Date/Time: Monday, December 25, 2017 12:32 - CONCLUSION: 1. Uncomplicated CT guided bone marrow aspirate. 2. Uncomplicated CT guided bone marrow biopsy. Lee Mijares MD CT Angiography 12/25/17 0000 Signed Impressions: Service Date/Time: Monday, December 25, 2017 09:26 - CONCLUSION: 1. No CT evidence for pulmonary artery embolism. 2. Moderate to large bilateral pleural effusions with associated compressive atelectasis at the lung bases. 3. 8mm nodule in the right middle lobe. Followup CT examination may be performed at 6 months to document stability if this has not been evaluated previously. 4. Very mildly prominent mediastinal and hilar nodes and partially imaged upper abdominal lymphadenopathy in this patient with history of lymphoma. Miguel Ashton MD Chest X-Ray 12/24/17 0000 Signed Impressions: Service Date/Time: Sunday, December 24, 2017 10:34 - CONCLUSION: 1. Stable bilateral lower lobe air space consolidation and small pleural effusions, right worse than left. Miguel Ashton MD PHYSICAL EXAMINATION: GENERAL: Awake and alert. HEENT: Head is atraumatic. Extraocular movements grossly intact. Pupils reactive to light, but constricted. No icterus. No conjunctival erythema. Oropharynx, moist mucosa without lesions. NECK: Supple without adenopathy or swelling. LUNGS: Rhonchi and wheezing on the right side. HEART: Regular S1 and S2. No murmurs, rubs or gallops. ABDOMEN: Bowel sounds present, soft, nontender. EXTREMITIES: No clubbing or cyanosis, 2+ edema of the lower extremities. SKIN: No diffuse rash. NEUROLOGIC: No gross focal finding. PSYCHIATRIC: Calm and cooperative. IMPRESSION: 1. Bibasilar lung infiltrates in patient with cough and immunosuppression secondary to lymphoma. Chest x-ray is worse. Patient is more short of breath. 2. Lymphoma. Started on chemotherapy. 3. Leukocytosis likely secondary to lymphoma but at this time, cannot exclude infection. 4. Decreased nutrition in patient with anorexia and now post percutaneous endoscopic gastrostomy placement. RECOMMENDATIONS: 1. Change cefepime to Zosyn. 2. Add vancomycin. 3. Monitor temperature and white blood cell count. 4. Monitor the clinical status. 5. Sputum culture if he is able to cough up a specimen. Lenin Salomon MD Dec 27, 2017 12:32
[2017-12-27] MEDS ORDERED: Vancomycin Consult Pharmacy 1 EA OTHER SCH (12:45)
--- NOTE | 2017-12-27 12:58 | ECHRPT ---
Indication: Persistent atrial fibrillation CONCLUSIONS Technically difficult study. The left ventricular systolic function is hyperdynamic with an estimated ejection fraction in the ra nge of 65- 70%. Normal left ventricular size. Wall thickness is normal. There is mild to moderate tricuspid valve regurgitation. The estimated pulmonary arterial pressure is 38.9 mmHg. BP: 131 / 73 HR: 88 Rhythm: Other MEASUREMENTS (Male / Female) Normal Values Technical Quality:Technically difficult study 2D ECHO LV Diastolic Diameter PLAX 4.5 cm 4.2 - 5.9 / 3.9 - 5.3 cm LV Systolic Diameter PLAX 2.8 cm IVS Diastolic Thickness 0.8 cm 0.6 - 1.0 / 0.6 - 0.9 cm LVPW Diastolic Thickness 0.9 cm 0.6 - 1.0 / 0.6 - 0.9 cm LV Relative Wall Thickness 0.4 RV Internal Dim ED PLAX 4.4 cm LVOT Diameter 2.2 cm LA Systolic Diameter LX 3.2 cm 3.0 - 4.0 / 2.7 - 3.8 cm M-MODE Aortic Root Diameter MM 2.5 cm LA Systolic Diameter MM 2.7 cm LA Ao Ratio MM 1.1 AV Cusp Separation MM 1.8 cm DOPPLER AV Peak Velocity 160.0 cm/s AV Peak Gradient 10.2 mmHg MV Area PHT 4.4 cm Mitral E Point Velocity 61.7 cm/s Mitral A Point Velocity 50.6 cm/s Mitral E to A Ratio 1.2 TR Peak Velocity 269.0 cm/s TR Peak Gradient 28.9 mmHg Right Atrial Pressure 10.0 mmHg Pulmonary Artery Systolic Pressu 38.9 mmHg Right Ventricular Systolic Press 38.9 mmHg FINDINGS LEFT VENTRICLE The left ventricular systolic function is hyperdynamic with an estimated ejection fraction in the ra nge of 65- 70%. Normal left ventricular size. Wall thickness is normal. RIGHT VENTRICLE Normal right ventricular size and systolic function. LEFT ATRIUM The left atrial size is normal. RIGHT ATRIUM The right atrial size is normal. ATRIAL SEPTUM Normal atrial septal thickness without atrial level shunting by limited color doppler interrogation. AORTA The aortic root and proximal ascending aorta are normal in size on limited imaging. MITRAL VALVE Structurally normal mitral valve. No mitral valve stenosis or regurgitation. AORTIC VALVE Trileaflet aortic valve. No aortic valve stenosis or regurgitation. TRICUSPID VALVE There is mild to moderate tricuspid valve regurgitation. The estimated pulmonary arterial pressure is 38.9 mmHg. PULMONARY VALVE No pulmonary valve regurgitation or stenosis. VESSELS The inferior vena cava is normal in size. PERICARDIUM No pericardial effusion. Josue Zamora MD, FACC (Electronically Signed) Final Date:27 December 2017 12:57
[2017-12-27] MEDS ORDERED: MORPHINE SULFATE 2 MG/ML SYRINGE IV PUSH PRN ×3 (15:30→17:15)
[2017-12-27] MEDS: PIPERACIL-TAZO 4.5 GM PREMIX 100 ML IV SCH ×2 (17:05→20:20)
[2017-12-27] MEDS: VANCOMYCIN INJ 1,500 MG in SODIUM CHLORID 0.9% 500 ML INJ 500 ML IV SCH (17:45)
[2017-12-27] MEDS: RESP: ACETYLCYSTEINE 10% 30 ML NEB NEB SCH (22:00)
--- NOTE | 2017-12-27 22:44 | RADRPT ---
EXAM DATE/TIME: 12/27/2017 21:35 [facility] COMPARISON: No previous studies available for comparison. INDICATIONS : Right pleural effusion. MEDICAL HISTORY : Hypercholesterolemia. Hypertension. Chronic obstructive pulmonary disease. CVA. Lymphoma. SURGICAL HISTORY : Port placement. Back surgery. ENCOUNTER: Initial ACUITY: 1 day PAIN SCORE: 0/10 LOCATION: Right chest MEASUREMENTS: SKIN TO PARIETAL PLEURA: 1.6 cm SKIN TO MAX SAFE DEPTH: 5.7 cm ESTIMATED FLUID VOLUME: 1,225 cc FLUID COMPOSITION: simple FINDINGS: Pleural effusion as above. A kashmir was placed on the skin surface superficial to the pleural fluid col lection. CONCLUSION: Large right pleural effusion and is amenable to thoracentesis. [place] made on the overlying skin. Andres Parekh MD on December 27, 2017 at 22:41 Board Certified Radiologist. This report was verified electronically.
--- NOTE | 2017-12-27 22:45 | RADRPT ---
EXAM DATE/TIME: 12/27/2017 21:39 [facility] COMPARISON: No previous studies available for comparison. INDICATIONS : Left pleural effusion. MEDICAL HISTORY : Chronic obstructive pulmonary disease. Hypercholesterolemia. Hypertension. CVA. Lymphoma. SURGICAL HISTORY : Port placement. Back surgery. ENCOUNTER: Initial ACUITY: 1 day PAIN SCORE: 0/10 LOCATION: Left chest MEASUREMENTS: SKIN TO PARIETAL PLEURA: 1.8 cm SKIN TO MAX SAFE DEPTH: 4.1 cm ESTIMATED FLUID VOLUME: 761 cc FLUID COMPOSITION: simple FINDINGS: Pleural effusion as above. A kashmir was placed on the skin surface superficial to the pleural fluid col lection. CONCLUSION: Large left pleural effusion and would be amenable to thoracentesis. [place] was made on the overlying sk in. Andres Parekh MD on December 27, 2017 at 22:42 Board Certified Radiologist. This report was verified electronically.
--- NOTE | 2017-12-27 23:34 | MB ---
cc: Simba Camara DO DATE OF CONSULT: 12/27/2017 REASON FOR CONSULTATION: Possible atrial fibrillation. HISTORY OF PRESENT ILLNESS: Gonzalo Diaz is a pleasant 72-year-old male who was transferred from [facility] to [facility] to receive treatments for his large cell lymphoma. The patient originally was ____ with 3 different courses of antibiotic therapy. He was also noted to have a lump on his left neck since August 2018, which was biopsied and showed anaplastic large cell lymphoma. He was recommended chemotherapy and to begin as soon as possible, but due to insurance concerns had to be transferred to [facility] for further treatment. During his time here there is question of arrhythmia on his telemetry and so an EKG was done. EKG was read as atrial fibrillation. I was consulted for further considerations. In seeing him, he states that he has had shortness of breath but currently denies any chest pain or palpitations. PAST MEDICAL HISTORY: 1. Stage IIIB anaplastic large cell lymphoma. 2. CVA without residual deficits. 3. Hyperlipidemia. 4. Hypertension. 5. COPD. 6. Bilateral lower extremity neuropathy. 7. Nonsustained ventricular tachycardia while at [facility]. PAST SURGICAL HISTORY: 1. Back surgery. 2. Port-A-Cath placement (12/20/2017). 3. PEG tube placement due to poor oral intake. ALLERGIES: HYDROCODONE. MEDICATIONS: 1. Zosyn. 2. Vancomycin. 3. Allopurinol. 4. Aspirin 81 mg daily. 5. Lipitor 80 mg daily. 6. Symbicort. 7. Mucinex ER. 8. Megace. 9. Solu-Medrol. 10. Lopressor 50 mg b.i.d. 11. Morphine as needed. 12. Protonix 40 mg every 12 hours. FAMILY HISTORY: Father from lung cancer. SOCIAL HISTORY: The patient smoked from age 11 until 55, about 1-1/2 packs per day. Denies alcohol or drug abuse. REVIEW OF SYSTEMS: Fourteen systems were reviewed including osteopathic. Pertinent positives and negatives above, otherwise negative. PHYSICAL EXAMINATION: VITAL SIGNS: Temperature 98.0, heart rate 78, blood pressure 140/75, respirations 20, pulse oximetry 93% on 2 liters. GENERAL: The patient is chronically ill-appearing, in no acute distress, alert, awake and oriented x 3. HEENT: Extraocular muscles intact. Mucous membranes moist. NECK: Supple. No JVD at 45 degrees. No carotid bruits heard bilaterally. Carotid upstroke is brisk in nature. HEART: Regular rate and rhythm. Positive for and second heart sounds with no noted murmurs, gallops or rubs. LUNGS: Scattered rhonchi bilaterally. ABDOMEN: Soft, nontender, nondistended. PEG tube noted in place. EXTREMITIES: Show trace edema bilaterally. NEUROLOGIC: No focal deficits. SKIN: Warm, dry and intact. OSTEOPATHIC: No kyphoscoliosis, lordosis or paraspinal tender points. LABORATORY DATA: Hemoglobin 8.2, hematocrit 24.4, platelets 341. Potassium 3.2, BUN 34, creatinine 0.97. BNP 110. Electrocardiogram (12/26/2017 at 1127) probable sinus rhythm with sinus arrhythmia, poor R-wave progression, nonspecific ST-T wave changes. EKG was read as atrial fibrillation as it is irregular, but there appears to be atrial activity before each QRS. ASSESSMENT: 1. Probable sinus rhythm with sinus arrhythmia with no evidence of atrial fibrillation at this time. 2. Ejection fraction of 65% to 70% by echocardiogram. 3. Stage IIIB anaplastic large cell lymphoma. 4. Malnutrition, status post percutaneous endoscopic gastrostomy tube placement. 5. Respiratory insufficiency. 6. Nonsustained ventricular tachycardia while at [facility]. 7. History of hypertension. 8. History of hyperlipidemia. RECOMMENDATIONS: 1. Mr. Diaz appears to probably have sinus rhythm with sinus arrhythmia. EKG was read as atrial fibrillation, but appears to have P-wave activity before every QRS. I have reviewed his telemetry and although there are some irregularities to it, it appears that these are most likely due to sinus arrhythmia or PACs. 2. Overall, his ejection fraction was normal by echocardiogram. 3. Would not plan on anticoagulating him at this time from a cardiovascular standpoint until definitive atrial fibrillation and at that time would discuss further with hem/onc for further recommendations. 4. Questionable history of nonsustained ventricular tachycardia while at [facility]. Overall, he has a normal ejection fraction by echocardiogram. He can followup outpatient with cardiology for consideration of stress testing. 5. Will continue to follow and watch on telemetry for further information on whether he truly has atrial fibrillation or not. Thank you for allowing me to see Gonzalo Diaz. If there are any questions, please do not hesitate to call. DO RAMIRO Heller/rt , 10:51 PM , 11:34 PM
[2017-12-28] VITALS (25 sets, daily range): BP systolic 131–165; BP diastolic 67–88; PULSE 74–98; RESP 18–22; TEMP 97–98.3; O2SAT 91–98
--- NOTE | 2017-12-28 01:24 | MB ---
cc: Katiuska Blevins MD,Kaveh WILL DATE OF CONSULT: 12/27/2017 Corrected Copy: 12/28/17 REASON FOR CONSULTATION: Respiratory insufficiency with bilateral pulmonary infiltrates. HISTORY OF PRESENT ILLNESS: This is a 72-year-old white male who has been admitted with a history of stage IIIB anaplastic large cell lymphoma, has recently been on chemotherapy and was transferred from [facility] and has been scheduled to receive chemotherapy at [place]. The patient has a history of COPD and peripheral neuropathy, as well as hypertension and has been on O2 at 3 liters via nasal cannula. He also upon admission 2 weeks ago was complaining of significant shortness of breath with cough with expectoration and had recently been treated with an antibiotic course without much relief. Chest x-ray showed evidence of hazy bibasilar infiltrates as well as bilateral pleural effusion and the patient did have a CT pulmonary angiogram on 12/25/2017 which showed no evidence of pulmonary emboli, but [id number] bilateral pleural effusions were noted with compressive atelectasis and also an 8 mm nodule in the right middle lobe, which required follow up. Lymph nodes in the mediastinum and hilar area were enlarged. Other past history includes history of hypertension, hyperlipidemia and the patient had anaplastic ALK negative large cell lymphoma. HABITS: The patient smoked in the past for over 50 years, a pack and a half per day and no significant alcohol use. PAST MEDICAL HISTORY: Includes CVA with no deficits, history of hypertension and COPD and peripheral neuropathy and [id number] placement. ALLERGIES: TO HYDROCODONE. FAMILY HISTORY: Was noncontributory. SYSTEM REVIEW: The patient has had some weight loss. No headaches, but has had some postnasal drip, wheezing, chest congestion and cough, epigastric distress, nausea, loss of appetite and oral thrush, as well as mild leg swelling, no calf muscle pains and no urinary symptoms. PHYSICAL EXAMINATION: General appearance: This elderly white male is averagely built, no acute distress. Vital signs: Blood pressure 140/80, pulse 85, respirations are 20, temperature is 97.2. HEENT: Head normocephalic. Pupils reactive. Sclerae were injected. Ears: No inflammation. Throat was clear. Neck: No bruits or thyroid enlargement or lymphadenopathy. Chest: Distant breath sounds with expiratory wheezes in the upper chest and a few crackles at both lung bases. Cardiovascular: The heart sounds are regular, S1 and S2. No murmur. No S3. Abdomen: Is soft, benign. No masses. Extremities: One plus edema with normal reflexes. There are no gross motor deficits. Cranial nerves grossly intact. Rectal examination: Is deferred. IMPRESSION: 1. Bibasilar pleural effusions with atelectasis. 2. History of hypertension. 3. Hyperlipidemia. 4. COPD, emphysema. 5. History of lymphoma. PLAN: The patient will go for ultrasound of the chest to evaluate effusions. Coagulation profile to be done and a thoracentesis will be planned on the right side. A PFT will be done with bronchodilator. DuoNeb nebs added q.i.d. Oxygen at 4 liters nasal cannula day time and BiPAP at night 12/5 cm. Antibiotics will be continued as ordered and Solu-Medrol 40 mg IV q. 8 hours. CBC and BMP to be repeated in a.m. and diuretic therapy daily. The thoracentesis procedure including risks of pneumothorax and bleeding where discussed. Thank you for this consultation. VClarence Blevins MD VNICOLÁS/GEORGES , 12:30 AM , 01:24 AM REMIGIO
[2017-12-28] MEDS: PIPERACIL-TAZO 4.5 GM PREMIX 100 ML IV SCH ×4 (02:03→20:06)
[2017-12-28] MEDS: VANCOMYCIN INJ 1,500 MG in SODIUM CHLORID 0.9% 500 ML INJ 500 ML IV SCH ×2 (02:07→15:38)
[2017-12-28] MEDS: RESP: ACETYLCYSTEINE 10% 30 ML NEB NEB SCH ×3 (03:18→20:49)
[2017-12-28] MEDS: RESP: ALBUTEROL 2.5 MG/IPRATROPIUM 0.5 MG NEB (PRN) NEB ×4 (03:18→20:50)
[2017-12-28] MEDS: methylPREDNISolone SOD SUCC 40 MG/1 ML VIAL IV PUSH SCH ×4 (05:03→23:21)
[2017-12-28 06:00] LABS: AUTOMATED NEUTROPHIL # 21.1 TH/MM3 (1.8-7.7); BASOPHIL % 0.1 % (0.0-2.0); HEMATOCRIT 27.1 % (39.0-51.0); HEMOGLOBIN 8.8 GM/DL (13.0-17.0); LYMPH % 0.5 % (9.0-44.0); LYMPHOCYTE # 0.1 TH/MM3 (1.0-4.8); MEAN CELL VOLUME 85.3 FL (80.0-100.0); MEAN CORPUSCULAR HEMOGLOBIN 27.8 PG (27.0-34.0); MEAN CORPUSCULAR HGB CONC 32.6 % (32.0-36.0); MEAN PLATELET VOLUME 7.7 FL (7.0-11.0); MONO % 1.1 % (0.0-8.0); MONOCYTE # 0.2 TH/MM3 (0-0.9); NEUT % 98.3 % (16.0-70.0); PLATELET COUNT 329 TH/MM3 (150-450); RED BLOOD COUNT 3.17 MIL/MM3 (4.50-5.90); RED CELL DISTRIBUTION WIDTH 19.8 % (11.6-17.2); WHITE BLOOD COUNT 21.5 TH/MM3 (4.0-11.0)
[2017-12-28 06:09] LABS: ALBUMIN 1.6 GM/DL (3.4-5.0); BICARBONATE 27.6 MEQ/L (21.0-32.0); CALCIUM 8.5 MG/DL (8.5-10.1); CREATININE 0.84 MG/DL (0.60-1.30); DIRECT BILIRUBIN ADULT 0.1 MG/DL (0.0-0.2); MAGNESIUM 2.6 MG/DL (1.5-2.5)
[2017-12-28 06:12] LABS: INDIRECT BILIRUBIN 0.4 MG/DL (0.0-0.8); TOTAL BILIRUBIN ADULT 0.5 MG/DL (0.2-1.0); TOTAL PROTEIN 5.3 GM/DL (6.4-8.2)
[2017-12-28] MEDS: PANTOPRAZOLE SOD 40 MG DELAYED RELEASE TAB PO SCH ×2 (08:10→20:06)
[2017-12-28] MEDS: guaiFENesin E.R. 600 MG TAB PO SCH ×2 (08:10→20:06)
[2017-12-28] MEDS: MEGESTROL ACETATE SUSP 400 MG/10 ML CUP PO SCH (08:10)
[2017-12-28] MEDS: ATORVASTATIN 80 MG TAB PO SCH (08:10)
[2017-12-28] MEDS: MULTIVITAMIN TAB PO SCH (08:11)
[2017-12-28] MEDS: METOPROLOL TARTRATE 50 MG TAB PO SCH ×2 (08:11→20:06)
[2017-12-28] MEDS: ASPIRIN EC 81 MG TABEC PO SCH (08:11)
[2017-12-28] MEDS: DOCUSATE SODIUM 50 MG/SENNA 8.6 MG TAB PO SCH ×2 (08:11→20:06)
[2017-12-28] MEDS: ALLOPURINOL 300 MG TAB PO SCH (08:11)
[2017-12-28] MEDS: BUDESONIDE-FORMOTEROL 160/4.5 MCG INHALER INH SCH ×2 (08:23→20:10)
[2017-12-28] MEDS: SODIUM CHLORIDE 0.9% FLUSH 10 ML FLUSH IV FLUSH SCH ×2 (08:27→20:06)
[2017-12-28] MEDS: INSULIN ASPART SUPPLEMENTAL SCALE SQ SCH ×4 (08:28→20:08)
[2017-12-28] MEDS: MORPHINE SULFATE 2 MG/ML SYRINGE IV PUSH PRN ×4 (08:40→23:17)
--- NOTE | 2017-12-28 08:44 | HHI.PR ---
Subjective Remarks This is a pleasant 72 y/o male with Hypertension, Hyperlipidemia, COPD, peripheral Neuropathy with newly diagnosed anaplastic large cell lymphoma Initially admitted to [facility] on 12/13/17, due to difficulty to breath, received antibiotics, found Pneumonia, He also has had a lump on his left neck since August 2018 which was biopsied and showed anaplastic large cell lymphoma alk negative. The oncologist at [facility] recommended chemotherapy to begin as soon as possible and possible bone marrow aspiration but due to insurance concerns he had to be transferred to [facility] for further treatment. He sees an oncologist in [employer] as an outpatient - Dr. Somers. He has seen ENT Dr. Thorne. Developed NSVT while at [facility]. patient seen in his bedroom awaiting for final disposition by Oncology, he is not eating well, will start him on IV fluids, TPN asked, PICC line, Bronchodilator, Mucolytic, Incentive spirometry, Concert Manager evaluation, PEG tube placement, reviewed his Port placed last 12/20/17 and not ready to remove stitches, discussed with nurse Miss Vazquez and with his Mrs. Kalani Diaz. 12/24: Seen by GI specialist, scheduled for EGD and PEG tube placement for today , evaluated Chest X ray now in view of laboratory I decide to start him on antibiotics, Vancomycin and Cefepime, asked for blood cultures, Sputum culture, Legionella antigen, Pneumococcal antigen, Infectious disease consult, Lactic Acid stat. discussed with patient and his another relatives in the room. all questions answered. 12/25: Stable in his bedroom, in the presence of his , improving condition, as per Oncology to start Chemotherapy. 12/26: Seen in his bedroom, recommended to continue aggressive diuresis, had CHOP C1D1 yesterday, Next chemotherapy in 3 weeks, to continue Allopurinol and Prednisone, he developed Atrial Fibrillation as per his relative the patient had evaluation by wildland fire fighter specialist while at [facility] asked for wildland fire fighter specialist. 12/27: During the night he had shortness of breath had the need for diuretics, given Furosemide, CXR gave worsening infiltrates, not yet seen by wildland fire fighter specialist, but his Echocardiogram gave EF 60 to 65%, BNP performed stat 110 no signs of Cardiac failure, Troponin less than 0.2, at this time with his in the room ordered by Oncology for donation specialist consult. 12/28: Discussed on MDR in am, Hematology and Oncology SUPERVISOR MACHINE SETTER present, the patient was seen by donation specialist and Cardiology basically no anticoagulation at this time due to basal pathology, he has Bibasilar Pleural effusions with atelectasis, asked for chest tube placement, and recommended to continue antibiotic coverage. no nausea, vomit or diarrhea. awaiting for Chest tube placement, his present. Objective Vital Signs Date Time Temp Pulse Resp B/P (MAP) Pulse Ox O2 Delivery O2 Flow Rate FiO2 12/28/17 08:34 Nasal Cannula 3.00 40 12/28/17 07:36 98 Nasal Cannula 3.00 12/28/17 07:00 89 20 154/88 (110) 97 12/28/17 06:00 84 12/28/17 05:00 98.0 80 20 165/88 (113) 95 12/28/17 05:00 96 12/28/17 04:50 91 2.00 12/28/17 04:00 98.0 78 20 158/77 (104) 97 12/28/17 04:00 Nasal Cannula 2.50 40 12/28/17 04:00 83 12/28/17 04:00 97.5 87 18 158/88 (111) 95 12/28/17 03:00 84 12/28/17 01:00 80 12/28/17 00:00 97.0 80 18 154/81 (105) 95 12/28/17 00:00 93 12/27/17 23:00 79 12/27/17 22:54 96 Nasal Cannula 2.00 12/27/17 22:00 96 12/27/17 21:00 88 12/27/17 20:00 87 12/27/17 20:00 98.0 94 20 150/81 (104) 95 12/27/17 20:00 Nasal Cannula 2.00 40 12/27/17 19:00 90 12/27/17 16:00 98.0 78 20 140/75 (96) 93 12/27/17 12:00 99.4 81 18 136/76 (96) 93 12/27/17 10:29 2.00 12/27/17 10:29 94 12/27/17 09:49 92 Nasal Cannula 2.00 I/O 12/27/17 12/27/17 12/27/17 12/28/17 12/28/1716/18 07:00 15:00 23:00 07:00 15:00 23:00 Intake Total 60 ml 300 ml 600 ml Output Total 1450 ml 650 ml 350 ml Balance -1390 ml 300 ml -50 ml -350 ml Intake Oral 60 ml 600 ml IV Total 300 ml Output Urine Total 1450 ml 650 ml 350 ml # Bowel Movements 0 Result Diagram: 12/28/17 0500 12/28/17 0500 Imaging Last Impressions Chest X-Ray 12/27/17 0000 Signed Impressions: Service Date/Time: December 01:54 - CONCLUSION: Worsening infiltrates. Siva Bean Jr., MD Chest Ultrasound 12/27/17 0000 Signed Impressions: Service Date/Time: December 21:39 - CONCLUSION: Large left pleural effusion and would be amenable to thoracentesis. Frandy was made on the overlying skin. Andres Parekh MD Bone Biopsy CT 12/25/17 1142 Signed Impressions: Service Date/Time: Monday, December 25, 2017 12:32 - CONCLUSION: 1. Uncomplicated CT guided bone marrow aspirate. 2. Uncomplicated CT guided bone marrow biopsy. Lee Mijares MD CT Angiography 12/25/17 0000 Signed Impressions: Service Date/Time: Monday, December 25, 2017 09:26 - CONCLUSION: 1. No CT evidence for pulmonary artery embolism. 2. Moderate to large bilateral pleural effusions with associated compressive atelectasis at the lung bases. 3. 8mm nodule in the right middle lobe. Followup CT examination may be performed at 6 months to document stability if this has not been evaluated previously. 4. Very mildly prominent mediastinal and hilar nodes and partially imaged upper abdominal lymphadenopathy in this patient with history of lymphoma. Miguel Ashton MD Procedures PEG tube placement. Bone Marrow Biopsy 12/25/17 Other Results Laboratory Tests Test 12/23/17 13:25 12/24/17 04:20 12/24/17 09:12 12/24/17 19:30 Hemoglobin A1c 6.0 % Triglycerides Level 52 MG/DL Cholesterol Level 66 MG/DL LDL Cholesterol 28 MG/DL HDL Cholesterol 27.5 MG/DL Cholesterol/HDL Ratio 2.40 RATIO Thiamine Level 203 nmol/L Vitamin B12 Level 1173 PG/ML Folate 13.2 NG/ML Free Thyroxine 1.41 NG/DL Thyroid Stimulating Hormone 3rd Gen 1.180 uIU/ML Erythrocyte Sedimentation Rate 67 mm/hr HIV (1&2) Antibody NEGATIVE Lactic Acid Level 0.9 mmol/L Differential Total Cells Counted 100 Neutrophils % (Manual) 94 % Band Neutrophils % 1 % Lymphocytes % 2 % Monocytes % 3 % Neutrophils # (Manual) 29.6 TH/MM3 Platelet Estimate HIGH Platelet Morphology Comment NORMAL Prothrombin Time 13.3 SEC Prothromb Time International Ratio 1.3 RATIO Activated Partial Thromboplast Time 26.4 SEC Test 12/25/17 12:30 12/25/17 15:20 12/26/17 04:50 12/27/17 05:30 Bone Marrow Immunophenotyping Blood Gas Puncture Site RT RADIAL Blood Gas Patient Temperature 98.6 Blood Gas HCO3 28 mmol/L Blood Gas Base Excess 4.2 mmol/L Blood Gas Oxygen Saturation 89 % Arterial Blood pH 7.43 Arterial Blood Partial Pressure CO2 44 mmHg Arterial Blood Partial Pressure O2 63 mmHg Arterial Blood Oxygen Content 12.2 Vol % Arterial Blood Carboxyhemoglobin 1.5 % Arterial Blood Methemoglobin 1.1 % Blood Gas Hemoglobin 9.7 G/DL Oxygen Delivery Device NASAL CANNULA Blood Gas Liter Flow 5 L/M Phosphorus Level 3.2 MG/DL Blood Urea Nitrogen 34 MG/DL Creatinine 0.97 MG/DL Random Glucose 194 MG/DL Total Protein 5.2 GM/DL Albumin 1.4 GM/DL Calcium Level 8.2 MG/DL Uric Acid 3.7 MG/DL Alkaline Phosphatase 114 U/L Aspartate Amino Transf (AST/SGOT) 44 U/L Alanine Aminotransferase (ALT/SGPT) 45 U/L Lactate Dehydrogenase 158 U/L Total Bilirubin 0.3 MG/DL Direct Bilirubin 0.1 MG/DL Sodium Level 146 MEQ/L Potassium Level 3.2 MEQ/L Chloride Level 108 MEQ/L Carbon Dioxide Level 30.7 MEQ/L Test 12/27/17 08:45 12/28/17 05:00 Total Creatine Kinase 373 U/L Creatine Kinase MB 1.2 NG/ML Creatine Kinase MB % 0.3 % Troponin I 0.02 NG/ML B-Type Natriuretic Peptide 110 PG/ML White Blood Count 21.5 TH/MM3 Red Blood Count 3.17 MIL/MM3 Hemoglobin 8.8 GM/DL Hematocrit 27.1 % Mean Corpuscular Volume 85.3 FL Mean Corpuscular Hemoglobin 27.8 PG Mean Corpuscular Hemoglobin Concent 32.6 % Red Cell Distribution Width 19.8 % Platelet Count 329 TH/MM3 Mean Platelet Volume 7.7 FL Neutrophils (%) (Auto) 98.3 % Lymphocytes (%) (Auto) 0.5 % Monocytes (%) (Auto) 1.1 % Eosinophils (%) (Auto) 0.0 % Basophils (%) (Auto) 0.1 % Neutrophils # (Auto) 21.1 TH/MM3 Lymphocytes # (Auto) 0.1 TH/MM3 Monocytes # (Auto) 0.2 TH/MM3 Eosinophils # (Auto) 0.0 TH/MM3 Basophils # (Auto) 0.0 TH/MM3 CBC Comment DIFF FINAL Differential Comment Blood Urea Nitrogen 36 MG/DL Creatinine 0.84 MG/DL Random Glucose 191 MG/DL Total Protein 5.3 GM/DL Albumin 1.6 GM/DL Calcium Level 8.5 MG/DL Magnesium Level 2.6 MG/DL Alkaline Phosphatase 111 U/L Aspartate Amino Transf (AST/SGOT) 41 U/L Alanine Aminotransferase (ALT/SGPT) 46 U/L Lactate Dehydrogenase 197 U/L Total Bilirubin 0.5 MG/DL Direct Bilirubin 0.1 MG/DL Sodium Level 145 MEQ/L Potassium Level 3.7 MEQ/L Chloride Level 110 MEQ/L Carbon Dioxide Level 27.6 MEQ/L Anion Gap 7 MEQ/L Estimat Glomerular Filtration Rate 90 ML/MIN Indirect Bilirubin 0.4 MG/DL Objective Remarks GENERAL: Well developed in no acute distress, resting comfortable. SKIN: No rashes. Cool and dry. Right chest wall port HEAD: Atraumatic. Normocephalic. EYES: No scleral icterus. No injection or drainage. ENT: Nose without bleeding, purulent drainage. NECK: Trachea midline. No JVD. Left supraclavicular lymphadenopathy palpated, fixed. CARDIOVASCULAR: Irregular rate and rhythm. no murmurs. RESPIRATORY: Breath sounds diminished at bases equal bilaterally. No wheezes, rales, or rhonchi. GASTROINTESTINAL: Abdomen soft, non-tender, nondistended. No guarding. MUSCULOSKELETAL: Extremities without clubbing, cyanosis, Edema 2+ NEUROLOGICAL: Awake and alert. no focal deficits. . Medications and IVs Current Medications Medications (Trade) Dose Ordered Sig/Candace Route Start Time Stop Time Status Last Admin (NS Flush) 2 ml UNSCH PRN IV FLUSH 12/22/17 18:15 (NS Flush) 2 ml BID IV FLUSH 12/22/17 21:00 12/28/17 08:27 (Zofran Inj) 4 mg Q6H PRN IVP 12/22/17 18:15 (Narcan Inj) 0.4 mg UNSCH PRN IV PUSH 12/22/17 18:15 (Mary Kay-Colace) 1 tab BID PO 12/22/17 21:00 12/28/17 08:11 (Milk Of Magnesia Liq) 30 ml Q12H PRN PO 12/22/17 18:15 (Senokot) 17.2 mg Q12H PRN PO 12/22/17 18:15 (Lactulose Liq) 30 ml DAILY PRN PO 12/22/17 18:15 (Duoneb Neb) 1 ampule Q4HR NEB PRN NEB 12/22/17 20:15 12/28/17 07:34 (Ambien) 5 mg HS PRN PO 12/22/17 20:15 12/26/17 20:30 (Protonix) 40 mg Q12HR PO 12/22/17 21:00 12/28/17 08:10 (Lopressor) 50 mg Q12HR PO 12/22/17 21:00 12/28/17 08:11 (Megace Liq) 800 mg DAILY PO 12/23/17 09:00 12/28/17 08:10 (Symbicort 160-4.5 Mcg Inh) 1 puff Q12HR INH 12/22/17 21:00 12/28/17 08:23 (Ecotrin Ec) 81 mg DAILY PO 12/23/17 09:00 12/28/17 08:11 (Lipitor) 80 mg DAILY PO 12/23/17 09:00 12/28/17 08:10 (Theragran) 1 tab DAILY PO 12/23/17 09:00 12/28/17 08:11 (Heparin Central Flush) 500 units UNSCH IV FLUSH 12/22/17 20:30 (NS Flush) 5 ml UNSCH PRN IVF 12/22/17 20:30 (Heparin Central Flush) 250 units UNSCH PRN IV FLUSH 12/22/17 20:30 12/27/17 20:27 (D50w (Vial) Inj) 50 ml UNSCH PRN IV PUSH 12/22/17 20:30 (Glucagon Inj) 1 mg UNSCH PRN OTHER 12/22/17 20:30 (NovoLOG SUPPLEMENTAL SCALE) 1 ACHS SLIDING SCALE SQ 12/22/17 21:00 12/28/17 08:28 (Robitussin Dm 200-20 Mg/10 ml Liq) 10 ml Q4H PRN PO 12/22/17 21:00 12/26/17 18:27 (Mucinex Er) 600 mg BID PO 12/23/17 21:00 12/28/17 08:10 (Tessalon) 100 mg TID PRN PO 12/25/17 12:00 (Zyloprim) 300 mg DAILY PO 12/26/17 09:00 12/28/17 08:11 (Tylenol) 650 mg Q4H PRN PO 12/26/17 14:45 12/26/17 20:32 (SoluMEDROL INJ) 40 mg Q6HR IV PUSH 12/27/17 12:00 12/28/17 05:03 Piperacillin Sod/ Tazobactam Sod 100 ml @ 200 mls/hr Q6H IV 12/27/17 14:00 12/28/17 08:10 Pharmacy Profile Note 0 ml @ 0 mls/hr UNSCH OTHER 12/27/17 12:45 Vancomycin HCl 1500 mg/Sodium Chloride 515 ml @ 250 mls/hr Q12H IV 12/27/17 15:00 12/28/17 02:07 Miscellaneous Information SPECIFIC LAB TO BE DRAWN:VANCOMYCIN TROUGH DATE TO... ONCE ONCE .XX 12/29/17 02:45 12/29/17 02:46 (Morphine Inj) 2 mg Q2HR PRN IV PUSH 12/27/17 15:30 (Morphine Inj) 4 mg Q2HR PRN IV PUSH 12/27/17 15:45 (Morphine Inj) 6 mg Q2HR PRN IV PUSH 12/27/17 17:15 (Mucomyst 10% Neb) 2 ml Q6HR NEB NEB 12/27/17 22:00 12/28/17 07:34 A/P Assessment and Plan (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 Diaz is a 72 y/o male with a history of newly diagnosed anaplastic large cell lymphoma who was transferred from [facility] sent to our facility to continue his management. due to insurance reasons. Anaplastic large cell lymphoma ALK negative, Awaiting sales merchandising specialist for management. Port evaluated stitches not ready for removal. - Pain medicine, sales merchandising specialist consulted, Zofran for nausea and vomit, IV fluids, Consult medical oncology - appreciate assistance with treatment - IV fluids, TPN asked, PICC line, Bronchodilator, Mucolytic, Incentive spirometry, Concert Manager evaluation, status post PEG placement, status post CHOP chemotherapy given new Chemotherapy three weeks later. COPD - Supplemental oxygen as needed - Continue Proventil inhalers - Bronchodilator, Mucolytic and incentive spirometry. - Continue prednisone 5 mg by mouth daily, the patient may have this Leukocytosis secondary to Steroid use, but he has bilateral lower lobe consolidations, not transferred with antibiotics, considered for possible Lymphoma instead of real infection, removed Vancomycin and continue Cefepime. worsening infiltrates on CXR, no signs of Congestive Heart failure. Bilateral Pleural effusions donation specialist following asked for chest tube placement. Respiratory Insufficiency BNP 110, Echocardiogram EF 60-65%, donation specialist following, Oxygen to keep Oxygen saturation >92%. chest tube placement will be performed by donation specialist Anxiety - Continue lorazepam 1 mg by mouth every 8 hours when necessary for moderate to severe anxiety Hyperlipidemia - Continue home atorvastatin 80 mg by mouth daily Hypertension - Continue metoprolol 50 mg by mouth every 12 hours Steroid-induced hyperglycemia - We'll continue Accu-Cheks before meals and at bedtime with low-dose NovoLog sliding scale coverage - Monitor trends and blood glucose levels and adjust treatments accordingly Hx of NSVT at [facility] per record review - continuous cardiac telemetry to monitor for dysrhythmia - patient will need stress test as an outpatient at some point in time - nuclear med MUGA scan showed EF 81% at [facility] - as per Cardiology sinus rhythm with arrhythmia, not recommended anticoagulation at this time. Hypokalemia replaced and following. DVT prophylaxis - SCDs . Discussed Condition With Patient and his . Discharge Planning Once Cleared by Specialists. Nils Nichols MD Dec 28, 2017 08:44
[2017-12-28] MEDS ORDERED: POTASSIUM CHLORIDE 20 MEQ CONTROLLED RELEASE TAB PO ONE (11:30)
--- NOTE | 2017-12-28 11:30 | PD.ONC.PN ---
Subjective Subjective Remarks Afebrile overnight. Patient resting in bed. Had difficulty sleeping overnight d/t pain in bottom and feeling short of breath. has not yet tried morphine. at bedside nervous about him trying morphine. sister would like him to try morphine. patient is somewhat ambivalent. Objective Data Date Time Temp Pulse Resp B/P (MAP) Pulse Ox O2 Delivery O2 Flow Rate FiO2 12/28/17 08:45 97.9 95 22 148/81 (103) 96 12/28/17 08:34 Nasal Cannula 3.00 40 12/28/17 08:00 94 12/28/17 07:36 98 Nasal Cannula 3.00 12/28/17 07:00 89 20 154/88 (110) 97 12/28/17 06:00 84 12/28/17 05:00 98.0 80 20 165/88 (113) 95 12/28/17 05:00 96 12/28/17 04:50 91 2.00 12/28/17 04:00 98.0 78 20 158/77 (104) 97 12/28/17 04:00 Nasal Cannula 2.50 40 12/28/17 04:00 83 12/28/17 04:00 97.5 87 18 158/88 (111) 95 12/28/17 03:00 84 12/28/17 01:00 80 12/28/17 00:00 97.0 80 18 154/81 (105) 95 12/28/17 00:00 93 12/27/17 23:00 79 12/27/17 22:54 96 Nasal Cannula 2.00 12/27/17 22:00 96 12/27/17 21:00 88 12/27/17 20:00 87 12/27/17 20:00 98.0 94 20 150/81 (104) 95 12/27/17 20:00 Nasal Cannula 2.00 40 12/27/17 19:00 90 12/27/17 16:00 98.0 78 20 140/75 (96) 93 12/27/17 12:00 99.4 81 18 136/76 (96) 93 12/28/17 12/28/17 12/28/17 07:00 15:00 23:00 Output Total 350 ml Balance -350 ml Result Diagram: 12/28/17 0500 12/28/17 0500 Laboratory Results Laboratory Tests Test 12/28/17 05:00 White Blood Count 21.5 TH/MM3 Red Blood Count 3.17 MIL/MM3 Hemoglobin 8.8 GM/DL Hematocrit 27.1 % Mean Corpuscular Volume 85.3 FL Mean Corpuscular Hemoglobin 27.8 PG Mean Corpuscular Hemoglobin Concent 32.6 % Red Cell Distribution Width 19.8 % Platelet Count 329 TH/MM3 Mean Platelet Volume 7.7 FL Neutrophils (%) (Auto) 98.3 % Lymphocytes (%) (Auto) 0.5 % Monocytes (%) (Auto) 1.1 % Eosinophils (%) (Auto) 0.0 % Basophils (%) (Auto) 0.1 % Neutrophils # (Auto) 21.1 TH/MM3 Lymphocytes # (Auto) 0.1 TH/MM3 Monocytes # (Auto) 0.2 TH/MM3 Eosinophils # (Auto) 0.0 TH/MM3 Basophils # (Auto) 0.0 TH/MM3 CBC Comment DIFF FINAL Differential Comment Blood Urea Nitrogen 36 MG/DL Creatinine 0.84 MG/DL Random Glucose 191 MG/DL Total Protein 5.3 GM/DL Albumin 1.6 GM/DL Calcium Level 8.5 MG/DL Magnesium Level 2.6 MG/DL Alkaline Phosphatase 111 U/L Aspartate Amino Transf (AST/SGOT) 41 U/L Alanine Aminotransferase (ALT/SGPT) 46 U/L Lactate Dehydrogenase 197 U/L Total Bilirubin 0.5 MG/DL Direct Bilirubin 0.1 MG/DL Sodium Level 145 MEQ/L Potassium Level 3.7 MEQ/L Chloride Level 110 MEQ/L Carbon Dioxide Level 27.6 MEQ/L Anion Gap 7 MEQ/L Estimat Glomerular Filtration Rate 90 ML/MIN Indirect Bilirubin 0.4 MG/DL Administered Medications Medications (Trade) Dose Ordered Sig/Candace Route PRN Reason Start Time Stop Time Status Last Admin Dose Admin Sodium Chloride (NS Flush) 2 ml BID IV FLUSH 12/22/17 21:00 12/28/17 08:27 Senna/Docusate Sodium (Mary Kay-Colace) 1 tab BID PO 12/22/17 21:00 12/28/17 08:11 Albuterol/ Ipratropium (Duoneb Neb) 1 ampule Q4HR NEB PRN NEB SOB/WHEEZING 12/22/17 20:15 12/28/17 07:34 Zolpidem Tartrate (Ambien) 5 mg HS PRN PO INSOMNIA 12/22/17 20:15 12/26/17 20:30 Pantoprazole Sodium (Protonix) 40 mg Q12HR PO 12/22/17 21:00 12/28/17 08:10 Metoprolol Tartrate (Lopressor) 50 mg Q12HR PO 12/22/17 21:00 12/28/17 08:11 Megestrol Acetate (Megace Liq) 800 mg DAILY PO 12/23/17 09:00 12/28/17 08:10 Budesonide/ Formoterol Fumarate (Symbicort 160-4.5 Mcg Inh) 1 puff Q12HR INH 12/22/17 21:00 12/28/17 08:23 Aspirin (Ecotrin Ec) 81 mg DAILY PO 12/23/17 09:00 12/28/17 08:11 Atorvastatin Calcium (Lipitor) 80 mg DAILY PO 12/23/17 09:00 12/28/17 08:10 Multivitamins (Theragran) 1 tab DAILY PO 12/23/17 09:00 12/28/17 08:11 Heparin Sodium (Porcine) (Heparin Central Flush) 250 units UNSCH PRN IV FLUSH SEE PROTOCOL 12/22/17 20:30 12/27/17 20:27 Insulin Aspart (NovoLOG SUPPLEMENTAL SCALE) 1 ACHS SLIDING SCALE SQ 12/22/17 21:00 12/28/17 08:28 Guaifenesin/ Dextromethorphan (Robitussin Dm 200-20 Mg/10 ml Liq) 10 ml Q4H PRN PO cough interfering with rest 12/22/17 21:00 12/26/17 18:27 Guaifenesin (Mucinex Er) 600 mg BID PO 12/23/17 21:00 12/28/17 08:10 Allopurinol (Zyloprim) 300 mg DAILY PO 12/26/17 09:00 12/28/17 08:11 Acetaminophen (Tylenol) 650 mg Q4H PRN PO FEVER>100.4 12/26/17 14:45 12/26/17 20:32 Methylprednisolone Sodium Succinate (SoluMEDROL INJ) 40 mg Q6HR IV PUSH 12/27/17 12:00 12/28/17 05:03 Piperacillin Sod/ Tazobactam Sod 100 ml @ 200 mls/hr Q6H IV 12/27/17 14:00 12/28/17 08:10 Vancomycin HCl 1500 mg/Sodium Chloride 515 ml @ 250 mls/hr Q12H IV 12/27/17 15:00 12/28/17 02:07 Morphine Sulfate (Morphine Inj) 2 mg Q2HR PRN IV PUSH pain1-5 12/27/17 15:30 12/28/17 08:40 Acetylcysteine (Mucomyst 10% Neb) 2 ml Q6HR NEB NEB 12/27/17 22:00 12/28/17 07:34 Objective Remarks GENERAL: chronically ill appearing male, supine in bed, dyspneic. SKIN: Warm and dry. HEAD: Normocephalic. EYES: No injection or drainage. NECK: Supple, trachea midline. CARDIOVASCULAR: +S1/S2, tachy RESPIRATORY: anterior clark with coarse scattered rhonchi. GASTROINTESTINAL: Abdomen soft, non-tender, nondistended. EXTREMITIES: No cyanosis. bilateral lower extremities with edema. NEUROLOGICAL: awake and alert, normal speech. 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 await thoracentesis. consult OT. 12/27: start Solu-medrol 40mg IV q 6. consult pulmonology for worsening infiltrates, pleural effusions. monitor CBC, counts dropping. 12/26: CT chest shows Bilateral Pl effusion. Continue aggressive diuresis. Had CHOP C1D1 yesterday. Tolerated well. Next chemo in 3 weeks as outpt. Continue allopurinol and prednisone. 12/25: CTA shows no PE. +LAD, PE. dyspnea likely d/t lymphoma. will give Solu- medrol 1g IV and start CHOP today. Anaplastic large cell, non-Hodgkin's lymphoma, at least stage III. --unclear whether he has any B symptoms, but this could be most likely given that he has significant weight loss, which is one of the symptoms of lymphoma. --Leukocytosis, anemia and neutrophilia, most likely due to bone marrow involvement by the lymphoma until proven otherwise. (2) Malnutrition ICD Codes: E46 - Unspecified protein-calorie malnutrition Plan: --tolerating Jevity 1.5 @ 60cc/hr --s/p PEG tube placement (3) Respiratory insufficiency ICD Codes: R06.89 - Other abnormalities of breathing Plan: --CTA showed no PE. --d/t pleural effusions, going for thoracentesis, 12/28 --s/p CHOP chemotherapy and Solu-medrol 1G IV --now on solu-medrol 40mg IV q 6 hours + PRN Duonebs. --pulmonology following, appreciate recommendations (4) Decubitus skin ulcer ICD Codes: L89.90 - Pressure ulcer of unspecified site, unspecified stage Plan: --wound care following. --has specialty air mattress Assessment 72y/o male with newly diagnosed anaplastic large cell NHL. h/o COPD, hypercholesterolemia, hypertension, history of previous stroke. HPI: started 8 weeks ago with a cough mixed with greenish phlegm and shortness of breath. CT cap showed diffuse lymphadenopathy on both sides of the diaphragm. PET scan showed increased uptake in the lymph nodes involving the neck, chest, mediastinal and hilar area, retroperitoneum and pelvic lymph nodes. biopsy of the left neck mass=anaplastic large cell NHL echocardiogram, LVEF=55-70%. MUGA scan, showed EF of 60%. Attending Statement The exam, history, and the medical decision-making described in the above note were completed with the assistance of the mid-level provider. I reviewed and agree with the findings presented. I attest that I had a [id number] encounter with the patient on the same day, and personally performed and documented my assessment and findings in the medical record. C/O SOB and cough US = Large Bilateral Pl effusion. Consult IR for thoracentesis. Consult PT d/c planning for rehab. D/W . Problem Qualifiers (1) Malnutrition: Qualified Codes: E46 - Unspecified protein-calorie malnutrition Susy La Dec 28, 2017 11:30 Josy Suarez MD Dec 28, 2017 23:49
--- NOTE | 2017-12-28 11:32 | HHI.IDPN ---
Note Infectious Disease Note Patient continues to have difficulty with breathing. However not as bad as yesterday. No fever. He has a cough and is congested but not producing any sputum. Having difficulty getting sputum up. Noted to have bilateral pleural effusions. Due to go for thoracentesis today. He is awake and alert alert. He notes mild pain across the upper abdomen. 72-year-old white male who was diagnosed with lymphoma. The patient was noted to have become ill 2 months ago. He was noted to have cough and he was given 3 rounds of oral antibiotics without improvement of the cough. Subsequent workup revealed mediastinal adenopathy and other areas of adenopathy, and a biopsy of the lesion of the neck came back showing lymphoma. During his stay at [facility], he had no fever. He was given antibiotics. An Infusaport was placed on 12/20 for anticipated chemotherapy. PAST MEDICAL HISTORY: Stage IIIB anaplastic large cell lymphoma, COPD, hypertension, hyperlipidemia, history of CVA without residual deficits, nonsustained V-tach at [facility], neuropathy of the lower extremities, back surgery, Infusaport placement on 12/20/2017. ALLERGIES: HYDROCODONE. MEDICATIONS: Current Medications Medications (Trade) Dose Ordered Sig/Candace Route PRN Reason Start Time Stop Time Status Last Admin Dose Admin Sodium Chloride (NS Flush) 2 ml UNSCH PRN IV FLUSH FLUSH AFTER USING IV ACCESS 12/22/17 18:15 Sodium Chloride (NS Flush) 2 ml BID IV FLUSH 12/22/17 21:00 12/28/17 08:27 Ondansetron HCl (Zofran Inj) 4 mg Q6H PRN IVP NAUSEA OR VOMITING 12/22/17 18:15 Naloxone HCl (Narcan Inj) 0.4 mg UNSCH PRN IV PUSH SEE LABEL COMMENTS 12/22/17 18:15 Senna/Docusate Sodium (Mary Kay-Colace) 1 tab BID PO 12/22/17 21:00 12/28/17 08:11 Magnesium Hydroxide (Milk Of Magnesia Liq) 30 ml Q12H PRN PO Mild constipation 12/22/17 18:15 Sennosides (Senokot) 17.2 mg Q12H PRN PO Moderate constipation 12/22/17 18:15 Lactulose (Lactulose Liq) 30 ml DAILY PRN PO SEVERE CONSITIPATION 12/22/17 18:15 Albuterol/ Ipratropium (Duoneb Neb) 1 ampule Q4HR NEB PRN NEB SOB/WHEEZING 12/22/17 20:15 12/28/17 07:34 Zolpidem Tartrate (Ambien) 5 mg HS PRN PO INSOMNIA 12/22/17 20:15 12/26/17 20:30 Pantoprazole Sodium (Protonix) 40 mg Q12HR PO 12/22/17 21:00 12/28/17 08:10 Metoprolol Tartrate (Lopressor) 50 mg Q12HR PO 12/22/17 21:00 12/28/17 08:11 Megestrol Acetate (Megace Liq) 800 mg DAILY PO 12/23/17 09:00 12/28/17 08:10 Budesonide/ Formoterol Fumarate (Symbicort 160-4.5 Mcg Inh) 1 puff Q12HR INH 12/22/17 21:00 12/28/17 08:23 Aspirin (Ecotrin Ec) 81 mg DAILY PO 12/23/17 09:00 12/28/17 08:11 Atorvastatin Calcium (Lipitor) 80 mg DAILY PO 12/23/17 09:00 12/28/17 08:10 Multivitamins (Theragran) 1 tab DAILY PO 12/23/17 09:00 12/28/17 08:11 Heparin Sodium (Porcine) (Heparin Central Flush) 500 units UNSCH IV FLUSH 12/22/17 20:30 Sodium Chloride (NS Flush) 5 ml UNSCH PRN IVF SEE PROTOCOL 12/22/17 20:30 Heparin Sodium (Porcine) (Heparin Central Flush) 250 units UNSCH PRN IV FLUSH SEE PROTOCOL 12/22/17 20:30 12/27/17 20:27 Dextrose (D50w (Vial) Inj) 50 ml UNSCH PRN IV PUSH HYPOGLYCEMIA-SEE COMMENTS 12/22/17 20:30 Glucagon (Glucagon Inj) 1 mg UNSCH PRN OTHER HYPOGLYCEMIA-SEE COMMENTS 12/22/17 20:30 Insulin Aspart (NovoLOG SUPPLEMENTAL SCALE) 1 ACHS SLIDING SCALE SQ 12/22/17 21:00 12/28/17 08:28 Guaifenesin/ Dextromethorphan (Robitussin Dm 200-20 Mg/10 ml Liq) 10 ml Q4H PRN PO cough interfering with rest 12/22/17 21:00 12/26/17 18:27 Guaifenesin (Mucinex Er) 600 mg BID PO 12/23/17 21:00 12/28/17 08:10 Benzonatate (Tessalon) 100 mg TID PRN PO cough 12/25/17 12:00 Allopurinol (Zyloprim) 300 mg DAILY PO 12/26/17 09:00 12/28/17 08:11 Acetaminophen (Tylenol) 650 mg Q4H PRN PO FEVER>100.4 12/26/17 14:45 12/26/17 20:32 Methylprednisolone Sodium Succinate (SoluMEDROL INJ) 40 mg Q6HR IV PUSH 12/27/17 12:00 12/28/17 05:03 Piperacillin Sod/ Tazobactam Sod 100 ml @ 200 mls/hr Q6H IV 12/27/17 14:00 12/28/17 08:10 Pharmacy Profile Note 0 ml @ 0 mls/hr UNSCH OTHER 12/27/17 12:45 Vancomycin HCl 1500 mg/Sodium Chloride 515 ml @ 250 mls/hr Q12H IV 12/27/17 15:00 12/28/17 02:07 Miscellaneous Information SPECIFIC LAB TO BE DRAWN:VANCOMYCIN TROUGH DATE TO... ONCE ONCE .XX 12/29/17 02:45 12/29/17 02:46 Morphine Sulfate (Morphine Inj) 2 mg Q2HR PRN IV PUSH pain1-5 12/27/17 15:30 12/28/17 08:40 Morphine Sulfate (Morphine Inj) 4 mg Q2HR PRN IV PUSH PAIN SCALE 6 TO 8 12/27/17 15:45 Morphine Sulfate (Morphine Inj) 6 mg Q2HR PRN IV PUSH pain9-10 12/27/17 17:15 Acetylcysteine (Mucomyst 10% Neb) 2 ml Q6HR NEB NEB 12/27/17 22:00 12/28/17 07:34 Potassium Chloride (KCl) 20 meq ONCE ONCE PO 12/28/17 11:30 12/28/17 11:31 SOCIAL HISTORY: Patient is . Patient is a prior smoker. No alcohol use. No illicit drugs. OBJECTIVE: Vital Signs Date Time Temp Pulse Resp B/P (MAP) Pulse Ox O2 Delivery O2 Flow Rate FiO2 12/28/17 08:45 97.9 95 22 148/81 (103) 96 12/28/17 08:34 Nasal Cannula 3.00 40 12/28/17 08:00 94 12/28/17 07:36 98 Nasal Cannula 3.00 12/28/17 07:00 89 20 154/88 (110) 97 12/28/17 06:00 84 12/28/17 05:00 98.0 80 20 165/88 (113) 95 12/28/17 05:00 96 12/28/17 04:50 91 2.00 12/28/17 04:00 98.0 78 20 158/77 (104) 97 12/28/17 04:00 Nasal Cannula 2.50 40 12/28/17 04:00 83 12/28/17 04:00 97.5 87 18 158/88 (111) 95 12/28/17 03:00 84 12/28/17 01:00 80 12/28/17 00:00 97.0 80 18 154/81 (105) 95 12/28/17 00:00 93 12/27/17 23:00 79 12/27/17 22:54 96 Nasal Cannula 2.00 12/27/17 22:00 96 12/27/17 21:00 88 12/27/17 20:00 87 12/27/17 20:00 98.0 94 20 150/81 (104) 95 12/27/17 20:00 Nasal Cannula 2.00 40 12/27/17 19:00 90 12/27/17 16:00 98.0 78 20 140/75 (96) 93 12/27/17 12:00 99.4 81 18 136/76 (96) 93 Laboratory Tests Test 12/27/17 05:30 12/28/17 05:00 White Blood Count 23.9 TH/MM3 21.5 TH/MM3 Red Blood Count 2.93 MIL/MM3 3.17 MIL/MM3 Hemoglobin 8.2 GM/DL 8.8 GM/DL Hematocrit 24.4 % 27.1 % Mean Corpuscular Volume 83.3 FL 85.3 FL Mean Corpuscular Hemoglobin 27.9 PG 27.8 PG Mean Corpuscular Hemoglobin Concent 33.6 % 32.6 % Red Cell Distribution Width 19.6 % 19.8 % Platelet Count 341 TH/MM3 329 TH/MM3 Mean Platelet Volume 7.5 FL 7.7 FL Neutrophils (%) (Auto) 96.7 % 98.3 % Lymphocytes (%) (Auto) 1.1 % 0.5 % Monocytes (%) (Auto) 2.1 % 1.1 % Eosinophils (%) (Auto) 0.0 % 0.0 % Basophils (%) (Auto) 0.1 % 0.1 % Neutrophils # (Auto) 23.1 TH/MM3 21.1 TH/MM3 Lymphocytes # (Auto) 0.3 TH/MM3 0.1 TH/MM3 Monocytes # (Auto) 0.5 TH/MM3 0.2 TH/MM3 Eosinophils # (Auto) 0.0 TH/MM3 0.0 TH/MM3 Basophils # (Auto) 0.0 TH/MM3 0.0 TH/MM3 CBC Comment DIFF FINAL DIFF FINAL Differential Comment Laboratory Tests Test 12/27/17 05:30 12/27/17 08:45 12/28/17 05:00 Blood Urea Nitrogen 34 MG/DL 36 MG/DL Creatinine 0.97 MG/DL 0.84 MG/DL Random Glucose 194 MG/DL 191 MG/DL Total Protein 5.2 GM/DL 5.3 GM/DL Albumin 1.4 GM/DL 1.6 GM/DL Calcium Level 8.2 MG/DL 8.5 MG/DL Uric Acid 3.7 MG/DL Alkaline Phosphatase 114 U/L 111 U/L Aspartate Amino Transf (AST/SGOT) 44 U/L 41 U/L Alanine Aminotransferase (ALT/SGPT) 45 U/L 46 U/L Lactate Dehydrogenase 158 U/L 197 U/L Total Bilirubin 0.3 MG/DL 0.5 MG/DL Direct Bilirubin 0.1 MG/DL 0.1 MG/DL Sodium Level 146 MEQ/L 145 MEQ/L Potassium Level 3.2 MEQ/L 3.7 MEQ/L Chloride Level 108 MEQ/L 110 MEQ/L Carbon Dioxide Level 30.7 MEQ/L 27.6 MEQ/L Anion Gap 7 MEQ/L 7 MEQ/L Estimat Glomerular Filtration Rate 76 ML/MIN 90 ML/MIN Indirect Bilirubin 0.2 MG/DL 0.4 MG/DL Total Creatine Kinase 373 U/L Creatine Kinase MB 1.2 NG/ML Creatine Kinase MB % 0.3 % Troponin I 0.02 NG/ML B-Type Natriuretic Peptide 110 PG/ML Magnesium Level 2.6 MG/DL IMAGING: Chest X-Ray 12/27/17 0000 Signed Impressions: Service Date/Time: December 01:54 - CONCLUSION: Worsening infiltrates. Siva Bean Jr., MD Chest Ultrasound 12/27/17 0000 Signed Impressions: Service Date/Time: December 21:39 - CONCLUSION: Large left pleural effusion and would be amenable to thoracentesis. Frandy was made on the overlying skin. Andres Parekh MD Chest Ultrasound 12/27/17 0000 Signed Impressions: Service Date/Time: December 21:35 - CONCLUSION: Large right pleural effusion and is amenable to thoracentesis. Frandy made on the overlying skin. Andres Parekh MD Bone Biopsy CT 12/25/17 1142 Signed Impressions: Service Date/Time: Monday, December 25, 2017 12:32 - CONCLUSION: 1. Uncomplicated CT guided bone marrow aspirate. 2. Uncomplicated CT guided bone marrow biopsy. Lee Mijares MD CT Angiography 12/25/17 0000 Signed Impressions: Service Date/Time: Monday, December 25, 2017 09:26 - CONCLUSION: 1. No CT evidence for pulmonary artery embolism. 2. Moderate to large bilateral pleural effusions with associated compressive atelectasis at the lung bases. 3. 8mm nodule in the right middle lobe. Followup CT examination may be performed at 6 months to document stability if this has not been evaluated previously. 4. Very mildly prominent mediastinal and hilar nodes and partially imaged upper abdominal lymphadenopathy in this patient with history of lymphoma. Miguel Ashton MD Chest X-Ray 12/24/17 0000 Signed Impressions: Service Date/Time: Sunday, December 24, 2017 10:34 - CONCLUSION: 1. Stable bilateral lower lobe air space consolidation and small pleural effusions, right worse than left. Miguel Ashton MD PHYSICAL EXAMINATION: GENERAL: Awake and alert. HEENT: Head is atraumatic. Extraocular movements grossly intact. Pupils reactive to light, but constricted. No icterus. No conjunctival erythema. Oropharynx, moist mucosa without lesions. NECK: Supple without adenopathy or swelling. LUNGS: Decreased breath sounds bilateral. HEART: Regular S1 and S2. No murmurs, rubs or gallops. ABDOMEN: Bowel sounds present, soft, mild tenderness on palpation at the epigastrium. EXTREMITIES: No clubbing or cyanosis, 2+ edema of the lower extremities. SKIN: No rash. NEUROLOGIC: No gross focal finding. PSYCHIATRIC: Calm and cooperative. IMPRESSION: 1. Bibasilar lung infiltrates in patient with cough and immunosuppression secondary to lymphoma. 2. Bilateral pleural effusions. Probably contributing to his dyspnea. 3. Lymphoma. Started on chemotherapy. 4. Leukocytosis likely secondary to lymphoma but at this time, cannot exclude infection. 5. Decreased nutrition in patient with anorexia and now post percutaneous endoscopic gastrostomy placement. RECOMMENDATIONS: 1. Continue Zosyn. 2. Continue vancomycin. 3. Monitor temperature and white blood cell count. 4. Monitor the clinical status. 5. Sputum culture if he is able to cough up a specimen. 6. Follow pleural fluid culture after thoracentesis is performed. Discussed with patient's and patient. Lenin Salomon MD Dec 28, 2017 11:32
--- NOTE | 2017-12-28 12:58 | PD.CARD.PN ---
Subjective Subjective Remarks No events overnight SOB with pleural effusions for thoracentesis Objective Medications Current Medications Medications (Trade) Dose Ordered Sig/Candace Route Start Time Stop Time Status Last Admin (NS Flush) 2 ml UNSCH PRN IV FLUSH 12/22/17 18:15 (NS Flush) 2 ml BID IV FLUSH 12/22/17 21:00 12/28/17 08:27 (Zofran Inj) 4 mg Q6H PRN IVP 12/22/17 18:15 (Narcan Inj) 0.4 mg UNSCH PRN IV PUSH 12/22/17 18:15 (Mary Kay-Colace) 1 tab BID PO 12/22/17 21:00 12/28/17 08:11 (Milk Of Magnesia Liq) 30 ml Q12H PRN PO 12/22/17 18:15 (Senokot) 17.2 mg Q12H PRN PO 12/22/17 18:15 (Lactulose Liq) 30 ml DAILY PRN PO 12/22/17 18:15 (Duoneb Neb) 1 ampule Q4HR NEB PRN NEB 12/22/17 20:15 12/28/17 07:34 (Ambien) 5 mg HS PRN PO 12/22/17 20:15 12/26/17 20:30 (Protonix) 40 mg Q12HR PO 12/22/17 21:00 12/28/17 08:10 (Lopressor) 50 mg Q12HR PO 12/22/17 21:00 12/28/17 08:11 (Megace Liq) 800 mg DAILY PO 12/23/17 09:00 12/28/17 08:10 (Symbicort 160-4.5 Mcg Inh) 1 puff Q12HR INH 12/22/17 21:00 12/28/17 08:23 (Ecotrin Ec) 81 mg DAILY PO 12/23/17 09:00 12/28/17 08:11 (Lipitor) 80 mg DAILY PO 12/23/17 09:00 12/28/17 08:10 (Theragran) 1 tab DAILY PO 12/23/17 09:00 12/28/17 08:11 (Heparin Central Flush) 500 units UNSCH IV FLUSH 12/22/17 20:30 (NS Flush) 5 ml UNSCH PRN IVF 12/22/17 20:30 (Heparin Central Flush) 250 units UNSCH PRN IV FLUSH 12/22/17 20:30 12/27/17 20:27 (D50w (Vial) Inj) 50 ml UNSCH PRN IV PUSH 12/22/17 20:30 (Glucagon Inj) 1 mg UNSCH PRN OTHER 12/22/17 20:30 (NovoLOG SUPPLEMENTAL SCALE) 1 ACHS SLIDING SCALE SQ 12/22/17 21:00 12/28/17 08:28 (Robitussin Dm 200-20 Mg/10 ml Liq) 10 ml Q4H PRN PO 12/22/17 21:00 12/26/17 18:27 (Mucinex Er) 600 mg BID PO 12/23/17 21:00 12/28/17 08:10 (Tessalon) 100 mg TID PRN PO 12/25/17 12:00 (Zyloprim) 300 mg DAILY PO 12/26/17 09:00 12/28/17 08:11 (Tylenol) 650 mg Q4H PRN PO 12/26/17 14:45 12/26/17 20:32 (SoluMEDROL INJ) 40 mg Q6HR IV PUSH 12/27/17 12:00 12/28/17 05:03 Piperacillin Sod/ Tazobactam Sod 100 ml @ 200 mls/hr Q6H IV 12/27/17 14:00 12/28/17 08:10 Pharmacy Profile Note 0 ml @ 0 mls/hr UNSCH OTHER 12/27/17 12:45 Vancomycin HCl 1500 mg/Sodium Chloride 515 ml @ 250 mls/hr Q12H IV 12/27/17 15:00 12/28/17 02:07 Miscellaneous Information SPECIFIC LAB TO BE DRAWN:VANCOMYCIN TROUGH DATE TO... ONCE ONCE .XX 12/29/17 02:45 12/29/17 02:46 (Morphine Inj) 2 mg Q2HR PRN IV PUSH 12/27/17 15:30 12/28/17 08:40 (Morphine Inj) 4 mg Q2HR PRN IV PUSH 12/27/17 15:45 (Morphine Inj) 6 mg Q2HR PRN IV PUSH 12/27/17 17:15 (Mucomyst 10% Neb) 2 ml Q6HR NEB NEB 12/27/17 22:00 12/28/17 07:34 Vital Signs / I&O Vital Signs Date Time Temp Pulse Resp B/P (MAP) Pulse Ox O2 Delivery O2 Flow Rate FiO2 12/28/17 12:00 97.6 84 18 131/67 (88) 95 12/28/17 08:45 97.9 95 22 148/81 (103) 96 12/28/17 08:34 Nasal Cannula 3.00 40 12/28/17 08:00 94 12/28/17 07:36 98 Nasal Cannula 3.00 12/28/17 07:00 89 20 154/88 (110) 97 12/28/17 06:00 84 12/28/17 05:00 98.0 80 20 165/88 (113) 95 12/28/17 05:00 96 12/28/17 04:50 91 2.00 12/28/17 04:00 98.0 78 20 158/77 (104) 97 12/28/17 04:00 Nasal Cannula 2.50 40 12/28/17 04:00 83 12/28/17 04:00 97.5 87 18 158/88 (111) 95 12/28/17 03:00 84 12/28/17 01:00 80 12/28/17 00:00 97.0 80 18 154/81 (105) 95 12/28/17 00:00 93 12/27/17 23:00 79 12/27/17 22:54 96 Nasal Cannula 2.00 12/27/17 22:00 96 12/27/17 21:00 88 12/27/17 20:00 87 12/27/17 20:00 98.0 94 20 150/81 (104) 95 12/27/17 20:00 Nasal Cannula 2.00 40 12/27/17 19:00 90 12/27/17 16:00 98.0 78 20 140/75 (96) 93 I/O 12/27/17 12/27/17 12/27/17 12/28/17 12/28/17 12/28/17 07:00 15:00 23:00 07:00 15:00 23:00 Intake Total 60 ml 300 ml 600 ml Output Total 1450 ml 650 ml 350 ml Balance -1390 ml 300 ml -50 ml -350 ml Intake Oral 60 ml 600 ml IV Total 300 ml Output Urine Total 1450 ml 650 ml 350 ml # Bowel Movements 0 Physical Exam GENERAL: NAD, AAOx3 SKIN: Warm and dry. HEAD: Atraumatic. Normocephalic. EYES: Pupils equal and round. No scleral icterus. No injection or drainage. ENT: No nasal bleeding or discharge. Mucous membranes pink and moist. NECK: Trachea midline. No JVD. CARDIOVASCULAR: Regular rate and rhythm. RESPIRATORY: No accessory muscle use. Decreased breath sounds bilaterally GASTROINTESTINAL: Abdomen soft, non-tender, nondistended. Hepatic and splenic margins not palpable. MUSCULOSKELETAL: Extremities without clubbing, cyanosis, or edema. No obvious deformities. NEUROLOGICAL: Awake and alert. No obvious cranial nerve deficits. Motor grossly within normal limits. Five out of 5 muscle strength in the arms and legs. Normal speech. PSYCHIATRIC: Appropriate mood and affect; insight and judgment normal. Laboratory Laboratory Tests Test 12/28/17 05:00 12/28/17 12:15 White Blood Count 21.5 TH/MM3 Red Blood Count 3.17 MIL/MM3 Hemoglobin 8.8 GM/DL Hematocrit 27.1 % Mean Corpuscular Volume 85.3 FL Mean Corpuscular Hemoglobin 27.8 PG Mean Corpuscular Hemoglobin Concent 32.6 % Red Cell Distribution Width 19.8 % Platelet Count 329 TH/MM3 Mean Platelet Volume 7.7 FL Neutrophils (%) (Auto) 98.3 % Lymphocytes (%) (Auto) 0.5 % Monocytes (%) (Auto) 1.1 % Eosinophils (%) (Auto) 0.0 % Basophils (%) (Auto) 0.1 % Neutrophils # (Auto) 21.1 TH/MM3 Lymphocytes # (Auto) 0.1 TH/MM3 Monocytes # (Auto) 0.2 TH/MM3 Eosinophils # (Auto) 0.0 TH/MM3 Basophils # (Auto) 0.0 TH/MM3 CBC Comment DIFF FINAL Differential Comment Blood Urea Nitrogen 36 MG/DL Creatinine 0.84 MG/DL Random Glucose 191 MG/DL Total Protein 5.3 GM/DL Albumin 1.6 GM/DL Calcium Level 8.5 MG/DL Magnesium Level 2.6 MG/DL Alkaline Phosphatase 111 U/L Aspartate Amino Transf (AST/SGOT) 41 U/L Alanine Aminotransferase (ALT/SGPT) 46 U/L Lactate Dehydrogenase 197 U/L Total Bilirubin 0.5 MG/DL Direct Bilirubin 0.1 MG/DL Sodium Level 145 MEQ/L Potassium Level 3.7 MEQ/L Chloride Level 110 MEQ/L Carbon Dioxide Level 27.6 MEQ/L Anion Gap 7 MEQ/L Estimat Glomerular Filtration Rate 90 ML/MIN Indirect Bilirubin 0.4 MG/DL Assessment and Plan Problem List: (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 - Anaplastic large cell lymphoma, ALK-negative, unspecified site (2) Malnutrition ICD Codes: E46 - Unspecified protein-calorie malnutrition (3) Hypertension ICD Codes: I10 - Essential (primary) hypertension Status: Chronic (4) Hyperlipidemia ICD Codes: E78.5 - Hyperlipidemia, unspecified Status: Chronic (5) COPD (chronic obstructive pulmonary disease) ICD Codes: J44.9 - Chronic obstructive pulmonary disease, unspecified Status: Chronic (6) Respiratory insufficiency ICD Codes: R06.89 - Other abnormalities of breathing Assessment and Plan 1) Sinus rhythm with sinus arrhythmia Probably not Afib, EKG most likely read wrong 2) Con't to follow on telemetry 3) Discussed with Heme/Onc Right now would not consider him an anti-coagulation candidate if he did have AFib, as he's started chemo 4) EF normal by echo 5) Will see PRN, call with questions Problem Qualifiers (1) Malnutrition: Qualified Codes: E46 - Unspecified protein-calorie malnutrition Simba Camara DO Dec 28, 2017 12:58
[2017-12-28 13:12] LABS: TOTAL PROTEIN,PLEURAL FLUID 1.8 GM/DL
--- NOTE | 2017-12-28 14:30 | RADRPT ---
EXAM DATE/TIME: 12/28/2017 12:37 [facility] COMPARISON: CHEST SINGLE AP, December 27, 2017, 1:54. INDICATIONS : S/P thoracentesis. MEDICAL HISTORY : Hypertension. Hypercholesterolemia. Chronic obstructive pulmonary disease. CVA, Lymphoma SURGICAL HISTORY : port placement ENCOUNTER: Initial ACUITY: 4 - 6 days PAIN SCORE: 0/10 LOCATION: Bilateral chest FINDINGS: Small left pleural effusion is noted. No pneumothorax is noted. Perihilar infiltrates are noted consi stent with pulmonary vascular congestion which is slightly improved compared previous examination. Ri ght internal jugular [id number] has its tip in superior vena cava. The heart is stable. CONCLUSION: 1. No pneumothorax is noted. 2. Small left pleural effusion. 3. Mild pulmonary vasculature congestion which is slightly improved compared previous examination. Lee Mijares MD on December 28, 2017 at 14:25 Board Certified Radiologist. This report was verified electronically.
[2017-12-28 14:51] LABS: PLEURAL FLUID RBC 12851 /MM3 (0-0); PLEURAL FLUID WBC 4045 /MM3 (0-10)
[2017-12-28 14:52] LABS: PLEURAL FLUID HISTIOCYTES 2 %; PLEURAL FLUID LYMPHS 2 %; PLEURAL FLUID MESOTHELIAL 3 %; PLEURAL FLUID MONOS 1 %; PLEURAL FLUID POLYS (SEGS) 92 %
[2017-12-29] VITALS (25 sets, daily range): BP systolic 126–143; BP diastolic 68–81; PULSE 66–112; RESP 16–18; TEMP 96.9–98.1; O2SAT 92–95
[2017-12-29] MEDS: PIPERACIL-TAZO 4.5 GM PREMIX 100 ML IV SCH ×4 (01:32→21:14)
[2017-12-29] MEDS ORDERED: PHARMACY ORDERED LAB ONE (02:45)
[2017-12-29] MEDS: VANCOMYCIN INJ 1,500 MG in SODIUM CHLORID 0.9% 500 ML INJ 500 ML IV SCH ×2 (03:37→16:20)
[2017-12-29] MEDS: MORPHINE SULFATE 2 MG/ML SYRINGE IV PUSH PRN ×2 (03:43→19:46)
[2017-12-29] MEDS: RESP: ACETYLCYSTEINE 10% 30 ML NEB NEB SCH ×4 (04:12→19:30)
[2017-12-29] MEDS: RESP: ALBUTEROL 2.5 MG/IPRATROPIUM 0.5 MG NEB (PRN) NEB ×2 (04:12→07:51)
[2017-12-29] MEDS: methylPREDNISolone SOD SUCC 40 MG/1 ML VIAL IV PUSH SCH ×3 (06:04→18:14)
--- NOTE | 2017-12-29 08:46 | PD.ONC.PN ---
Subjective Subjective Remarks Afebrile overnight. Patient resting in bed in nad. feeling better today after thoracentesis yesterday. not tolerating tube feedings as well with laying down. worried about sitting up more with his bed sores. Objective Data Date Time Temp Pulse Resp B/P (MAP) Pulse Ox O2 Delivery O2 Flow Rate FiO2 12/29/17 07:55 95 Nasal Cannula 2.00 12/29/17 06:00 80 12/29/17 05:00 82 12/29/17 04:00 83 12/29/17 04:00 96.9 80 18 126/73 (90) 95 12/29/17 00:00 97.3 87 16 130/68 (88) 93 12/29/17 00:00 69 12/28/17 22:00 88 12/28/17 21:00 86 12/28/17 20:51 95 Nasal Cannula 3.00 12/28/17 20:00 Nasal Cannula 3.00 40 12/28/17 20:00 98.3 87 18 145/76 (99) 97 12/28/17 19:00 88 12/28/17 17:00 88 12/28/17 16:00 85 12/28/17 16:00 97.9 74 18 138/72 (94) 95 12/28/17 15:00 80 12/28/17 14:00 82 12/28/17 13:00 80 12/28/17 12:00 97.6 84 18 131/67 (88) 95 12/28/17 12:00 86 12/28/17 11:00 78 12/28/17 10:00 74 12/28/17 09:00 98 12/28/17 08:45 97.9 95 22 148/81 (103) 96 12/29/17 12/29/17 12/29/17 07:00 15:00 23:00 Intake Total 480 ml Output Total 400 ml Balance 80 ml Result Diagram: 12/28/17 0500 12/28/17 0500 Laboratory Results Laboratory Tests Test 12/28/17 12:15 12/29/17 03:20 Pleural Fluid pH 8.0 Pleural Fluid WBC 4045 /MM3 Pleural Fluid RBC 84622 /MM3 Pleural Fluid Neutrophils 92 % Pleural Fluid Lymphocytes 2 % Pleural Fluid Monocytes 1 % Pleural Fluid Histiocytes 2 % Pleural Fluid Mesothelial Cells 3 % Pleural Fluid Total Protein 1.8 GM/DL Pleural Fluid LDH 129 U/L Pleural Fluid Glucose 220 MG/DL Vancomycin Level Trough 17.3 MCG/ML Culture Results Microbiology Date/Time Source Procedure Growth Status 12/28/17 12:15 Fluid Pleural Fluid Fungal Smear Pending Received 12/28/17 12:15 Fluid Pleural Fluid Fungal Culture Pending Received 12/28/17 12:15 Fluid Pleural Fluid Acid Fast Stain Pending Received 12/28/17 12:15 Fluid Pleural Fluid Mycobacterial Culture Pending Received 12/28/17 12:15 Fluid Pleural Fluid Gram Stain - Final Resulted 12/28/17 12:15 Fluid Pleural Fluid Body Fluid Culture Pending Resulted Administered Medications Medications (Trade) Dose Ordered Sig/Candace Route PRN Reason Start Time Stop Time Status Last Admin Dose Admin Sodium Chloride (NS Flush) 2 ml BID IV FLUSH 12/22/17 21:00 12/28/17 20:06 Senna/Docusate Sodium (Mary Kay-Colace) 1 tab BID PO 12/22/17 21:00 12/28/17 20:06 Albuterol/ Ipratropium (Duoneb Neb) 1 ampule Q4HR NEB PRN NEB SOB/WHEEZING 12/22/17 20:15 12/29/17 07:51 Zolpidem Tartrate (Ambien) 5 mg HS PRN PO INSOMNIA 12/22/17 20:15 12/26/17 20:30 Pantoprazole Sodium (Protonix) 40 mg Q12HR PO 12/22/17 21:00 12/28/17 20:06 Metoprolol Tartrate (Lopressor) 50 mg Q12HR PO 12/22/17 21:00 12/28/17 20:06 Megestrol Acetate (Megace Liq) 800 mg DAILY PO 12/23/17 09:00 12/28/17 08:10 Budesonide/ Formoterol Fumarate (Symbicort 160-4.5 Mcg Inh) 1 puff Q12HR INH 12/22/17 21:00 12/28/17 20:10 Aspirin (Ecotrin Ec) 81 mg DAILY PO 12/23/17 09:00 12/28/17 08:11 Atorvastatin Calcium (Lipitor) 80 mg DAILY PO 12/23/17 09:00 12/28/17 08:10 Multivitamins (Theragran) 1 tab DAILY PO 12/23/17 09:00 12/28/17 08:11 Heparin Sodium (Porcine) (Heparin Central Flush) 250 units UNSCH PRN IV FLUSH SEE PROTOCOL 12/22/17 20:30 12/27/17 20:27 Insulin Aspart (NovoLOG SUPPLEMENTAL SCALE) 1 ACHS SLIDING SCALE SQ 12/22/17 21:00 12/28/17 20:08 Guaifenesin/ Dextromethorphan (Robitussin Dm 200-20 Mg/10 ml Liq) 10 ml Q4H PRN PO cough interfering with rest 12/22/17 21:00 12/26/17 18:27 Guaifenesin (Mucinex Er) 600 mg BID PO 12/23/17 21:00 12/28/17 20:06 Allopurinol (Zyloprim) 300 mg DAILY PO 12/26/17 09:00 12/28/17 08:11 Acetaminophen (Tylenol) 650 mg Q4H PRN PO FEVER>100.4 12/26/17 14:45 12/26/17 20:32 Methylprednisolone Sodium Succinate (SoluMEDROL INJ) 40 mg Q6HR IV PUSH 12/27/17 12:00 12/29/17 06:04 Piperacillin Sod/ Tazobactam Sod 100 ml @ 200 mls/hr Q6H IV 12/27/17 14:00 12/29/17 01:32 Vancomycin HCl 1500 mg/Sodium Chloride 515 ml @ 250 mls/hr Q12H IV 12/27/17 15:00 12/29/17 03:37 Morphine Sulfate (Morphine Inj) 2 mg Q2HR PRN IV PUSH pain1-5 12/27/17 15:30 12/28/17 20:07 Morphine Sulfate (Morphine Inj) 4 mg Q2HR PRN IV PUSH PAIN SCALE 6 TO 8 12/27/17 15:45 12/29/17 03:43 Acetylcysteine (Mucomyst 10% Neb) 2 ml Q6HR NEB NEB 12/27/17 22:00 12/29/17 07:51 Objective Remarks GENERAL: chronically ill appearing male, lying in bed on 2L O2 via NC SKIN: Warm and dry. HEAD: Normocephalic. EYES: No injection or drainage. NECK: Supple, trachea midline. CARDIOVASCULAR: +S1/S2, tachy RESPIRATORY: scattered rhonchi. GASTROINTESTINAL: Abdomen soft, non-tender, nondistended. EXTREMITIES: No cyanosis. NEUROLOGICAL: awake, alert. deconditioned but without focal deficit. Assessment/Plan Assessment 72y/o male with newly diagnosed anaplastic large cell NHL. h/o COPD, hypercholesterolemia, hypertension, history of previous stroke. HPI: started 8 weeks ago with a cough mixed with greenish phlegm and shortness of breath. CT cap showed diffuse lymphadenopathy on both sides of the diaphragm. PET scan showed increased uptake in the lymph nodes involving the neck, chest, mediastinal and hilar area, retroperitoneum and pelvic lymph nodes. biopsy of the left neck mass=anaplastic large cell NHL echocardiogram, LVEF=55-70%. MUGA scan, showed EF of 60%. Plan 1. respiratory insufficiency: improved with thoracentesis. continue solu-medrol 2. monitor CBC 3. change positioning for tube feeding. consult senior reactor operator for bolus tube feeding recommendations. 4. continue wound care for decubitus ulcer. 5. consult ST for swallow evaluation Attending Statement The exam, history, and the medical decision-making described in the above note were completed with the assistance of the mid-level provider. I reviewed and agree with the findings presented. I attest that I had a [id number] encounter with the patient on the same day, and personally performed and documented my assessment and findings in the medical record. stronger and presently tolerating G tube feedings. continue supportive care. discussed with . Susy La Dec 29, 2017 08:46 Yash Martinez MD Dec 29, 2017 13:19
[2017-12-29] MEDS: INSULIN ASPART SUPPLEMENTAL SCALE SQ SCH ×4 (10:28→21:21)
[2017-12-29] MEDS: guaiFENesin E.R. 600 MG TAB PO SCH ×2 (10:31→21:14)
[2017-12-29] MEDS: ATORVASTATIN 80 MG TAB PO SCH (10:31)
[2017-12-29] MEDS: PANTOPRAZOLE SOD 40 MG DELAYED RELEASE TAB PO SCH ×2 (10:31→21:14)
[2017-12-29] MEDS: METOPROLOL TARTRATE 50 MG TAB PO SCH ×2 (10:31→21:14)
[2017-12-29] MEDS: MEGESTROL ACETATE SUSP 400 MG/10 ML CUP PO SCH (10:31)
[2017-12-29] MEDS: ALLOPURINOL 300 MG TAB PO SCH (10:31)
[2017-12-29] MEDS: ASPIRIN EC 81 MG TABEC PO SCH (10:31)
[2017-12-29] MEDS: SODIUM CHLORIDE 0.9% FLUSH 10 ML FLUSH IV FLUSH SCH ×2 (10:32→21:21)
[2017-12-29] MEDS: BUDESONIDE-FORMOTEROL 160/4.5 MCG INHALER INH SCH ×2 (10:32→21:14)
[2017-12-29] MEDS: DOCUSATE SODIUM 50 MG/SENNA 8.6 MG TAB PO SCH ×2 (10:32→21:00)
[2017-12-29] MEDS: MULTIVITAMIN TAB PO SCH (10:32)
--- NOTE | 2017-12-29 12:02 | HHI.PR ---
Subjective Remarks Follow-up anaplastic NHL/bilateral pleural effusion/pulmonary infiltrate/ respiratory failure 12/29/17-patient seen and examined, no significant shortness of breath, decreased appetite, currently afebrile Objective Vitals Vital Signs Date Time Temp Pulse Resp B/P (MAP) Pulse Ox O2 Delivery O2 Flow Rate FiO2 12/29/17 10:21 Nasal Cannula 2.00 Humidified 12/29/17 10:21 97.5 12/29/17 08:00 90 18 143/74 (97) 92 12/29/17 07:55 95 Nasal Cannula 2.00 12/29/17 06:00 80 12/29/17 05:00 82 12/29/17 04:00 83 12/29/17 04:00 96.9 80 18 126/73 (90) 95 12/29/17 00:00 97.3 87 16 130/68 (88) 93 12/29/17 00:00 69 12/28/17 22:00 88 12/28/17 21:00 86 12/28/17 20:51 95 Nasal Cannula 3.00 12/28/17 20:00 Nasal Cannula 3.00 40 12/28/17 20:00 98.3 87 18 145/76 (99) 97 12/28/17 19:00 88 12/28/17 17:00 88 12/28/17 16:00 85 12/28/17 16:00 97.9 74 18 138/72 (94) 95 12/28/17 15:00 80 12/28/17 14:00 82 12/28/17 13:00 80 12/28/17 12:00 97.6 84 18 131/67 (88) 95 12/28/17 12:00 86 I/O 12/28/17 12/28/17 12/28/17 12/29/17 12/29/17 12/29/17 07:00 15:00 23:00 07:00 15:00 23:00 Intake Total 200 ml 515 ml 480 ml Output Total 350 ml 400 ml Balance -350 ml 200 ml 515 ml 80 ml Intake Oral 0 ml 480 ml IV Total 200 ml 515 ml Output Urine Total 350 ml 400 ml # Voids 2 # Bowel Movements 0 1 Result Diagram: 12/28/17 0500 12/28/17 0500 Imaging Last Impressions Chest X-Ray 12/28/17 0000 Signed Impressions: Service Date/Time: Thursday, December 28, 2017 12:37 - CONCLUSION: 1. No pneumothorax is noted. 2. Small left pleural effusion. 3. Mild pulmonary vasculature congestion which is slightly improved compared previous examination. Lee Mijares MD Chest Ultrasound 12/27/17 0000 Signed Impressions: Service Date/Time: December 21:39 - CONCLUSION: Large left pleural effusion and would be amenable to thoracentesis. Frandy was made on the overlying skin. Andres Parekh MD Bone Biopsy CT 12/25/17 1142 Signed Impressions: Service Date/Time: Monday, December 25, 2017 12:32 - CONCLUSION: 1. Uncomplicated CT guided bone marrow aspirate. 2. Uncomplicated CT guided bone marrow biopsy. Lee Mijares MD CT Angiography 12/25/17 0000 Signed Impressions: Service Date/Time: Monday, December 25, 2017 09:26 - CONCLUSION: 1. No CT evidence for pulmonary artery embolism. 2. Moderate to large bilateral pleural effusions with associated compressive atelectasis at the lung bases. 3. 8mm nodule in the right middle lobe. Followup CT examination may be performed at 6 months to document stability if this has not been evaluated previously. 4. Very mildly prominent mediastinal and hilar nodes and partially imaged upper abdominal lymphadenopathy in this patient with history of lymphoma. Miguel Ashton MD Objective Remarks GENERAL: NAD SKIN: Warm and dry. HEAD: Normocephalic. EYES: No scleral icterus. No injection or drainage. NECK: Supple, trachea midline. No JVD or lymphadenopathy. CARDIOVASCULAR: Regular rate and rhythm without murmurs, gallops, or rubs. RESPIRATORY: Breath sounds decrease bilaterally. No accessory muscle use. GASTROINTESTINAL: Abdomen soft, non-tender, nondistended. MUSCULOSKELETAL: No cyanosis, or edema. BACK: Nontender without obvious deformity. No CVA tenderness. 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 - Anaplastic large cell lymphoma, ALK-negative, unspecified site (2) COPD (chronic obstructive pulmonary disease) ICD Code: J44.9 - Chronic obstructive pulmonary disease, unspecified Status: Chronic (3) Hypertension ICD Code: I10 - Essential (primary) hypertension Status: Chronic (4) Hyperlipidemia ICD Code: E78.5 - Hyperlipidemia, unspecified Status: Chronic Assessment and Plan 72-year-old man with Anaplastic large cell lymphoma ALK negative Management per oncology Continue current pain management Failure to thrive Dietitian consultation pending Calorie count Tube feed COPD - Supplemental oxygen as needed - Continue Proventil inhalers - Bronchodilator, Mucolytic and incentive spirometry. - Continue prednisone 5 mg by mouth daily, Pulmonary infiltrates Continue with Zosyn and vancomycin Appreciate input from ID Bilateral Pleural effusions Status post thoracentesis 12/28/17 Management per pulmonary medicine Anxiety - Continue lorazepam 1 mg by mouth every 8 hours when necessary for moderate to severe anxiety Hyperlipidemia - Continue home atorvastatin 80 mg by mouth daily Hypertension - Continue metoprolol 50 mg by mouth every 12 hours Steroid-induced hyperglycemia - We'll continue Accu-Cheks before meals and at bedtime with low-dose NovoLog sliding scale coverage - Monitor trends and blood glucose levels and adjust treatments accordingly Hx of NSVT at [facility] per record review - continuous cardiac telemetry to monitor for dysrhythmia - patient will need stress test as an outpatient at some point in time - nuclear med MUGA scan showed EF 81% at [facility] - as per Cardiology sinus rhythm with arrhythmia, not recommended anticoagulation at this time. Hypokalemia : Resolved status post replacement DVT prophylaxis - Kaveh Chung MD Dec 29, 2017 12:02
[2017-12-29] MEDS: RESP: ALBUTEROL 2.5 MG/IPRATROPIUM 0.5 MG NEB (SCH) INH ×2 (14:00→19:30)
[2017-12-29 14:47] LABS: AMYLASE BODY FLUID 21 U/L; AMYLASE BODY FLUID TYPE PLEURAL
[2017-12-30] VITALS (28 sets, daily range): BP systolic 126–158; BP diastolic 72–86; PULSE 64–95; RESP 18–20; TEMP 97.6–98.9; O2SAT 93–97
[2017-12-30] MEDS: PIPERACIL-TAZO 4.5 GM PREMIX 100 ML IV SCH ×4 (01:07→23:09)
[2017-12-30] MEDS: methylPREDNISolone SOD SUCC 40 MG/1 ML VIAL IV PUSH SCH ×5 (01:07→23:07)
[2017-12-30] MEDS: MORPHINE SULFATE 2 MG/ML SYRINGE IV PUSH PRN (02:37)
[2017-12-30] MEDS: VANCOMYCIN INJ 1,500 MG in SODIUM CHLORID 0.9% 500 ML INJ 500 ML IV SCH ×2 (02:37→14:53)
[2017-12-30] MEDS: RESP: ACETYLCYSTEINE 10% 30 ML NEB NEB SCH ×3 (08:00→19:17)
[2017-12-30] MEDS: RESP: ALBUTEROL 2.5 MG/IPRATROPIUM 0.5 MG NEB (SCH) INH ×4 (08:00→19:17)
[2017-12-30] MEDS: INSULIN ASPART SUPPLEMENTAL SCALE SQ SCH ×4 (08:02→21:00)
[2017-12-30] MEDS: DOCUSATE SODIUM 50 MG/SENNA 8.6 MG TAB PO SCH ×2 (09:00→21:00)
--- NOTE | 2017-12-30 10:11 | PD.ONC.PN ---
Subjective Subjective Remarks Afebrile overnight. Patient resting in bed. Overnight he developed some diarrhea. He has difficulty sleeping at night. breathing improved. Objective Data Date Time Temp Pulse Resp B/P (MAP) Pulse Ox O2 Delivery O2 Flow Rate FiO2 12/30/17 08:16 77 12/30/17 06:00 88 12/30/17 05:12 97.7 73 20 158/78 (104) 94 12/30/17 05:00 72 12/30/17 03:56 72 12/30/17 03:00 64 12/30/17 02:43 18 12/30/17 02:00 68 12/30/17 01:00 76 12/30/17 00:55 97.9 73 20 155/79 (104) 93 12/30/17 00:06 77 12/29/17 23:00 72 12/29/17 22:00 70 12/29/17 21:00 88 12/29/17 20:01 81 12/29/17 20:00 97.8 86 16 141/75 (97) 94 12/29/17 20:00 Nasal Cannula 2.00 12/29/17 19:34 93 Nasal Cannula 2.00 12/29/17 19:00 90 12/29/17 18:00 82 12/29/17 17:00 88 12/29/17 16:00 97.8 112 18 135/78 (97) 94 12/29/17 16:00 72 12/29/17 15:00 68 12/29/17 14:00 76 12/29/17 13:00 98.1 92 18 137/81 (99) 94 12/29/17 13:00 70 12/29/17 12:00 66 12/29/17 11:00 78 12/29/17 10:21 Nasal Cannula 2.00 Humidified 12/29/17 10:21 97.5 12/30/17 12/30/17 12/30/17 07:00 15:00 23:00 Intake Total 1394 ml Output Total 450 ml Balance 944 ml Result Diagram: 12/28/17 0500 12/28/17 0500 Culture Results Microbiology Date/Time Source Procedure Growth Status 12/28/17 12:15 Fluid Pleural Fluid Fungal Smear Pending Received 12/28/17 12:15 Fluid Pleural Fluid Fungal Culture Pending Received 12/28/17 12:15 Fluid Pleural Fluid Acid Fast Stain Pending Received 12/28/17 12:15 Fluid Pleural Fluid Mycobacterial Culture Pending Received 12/28/17 12:15 Fluid Pleural Fluid Gram Stain - Final Resulted 12/28/17 12:15 Fluid Pleural Fluid Body Fluid Culture - Preliminary NO GROWTH IN 48 HOURS. Resulted Administered Medications Medications (Trade) Dose Ordered Sig/Candace Route PRN Reason Start Time Stop Time Status Last Admin Dose Admin Sodium Chloride (NS Flush) 2 ml BID IV FLUSH 12/22/17 21:00 12/29/17 21:21 Senna/Docusate Sodium (Mary Kay-Colace) 1 tab BID PO 12/22/17 21:00 12/29/17 10:32 Albuterol/ Ipratropium (Duoneb Neb) 1 ampule Q4HR NEB PRN NEB SOB/WHEEZING 12/22/17 20:15 12/29/17 07:51 Zolpidem Tartrate (Ambien) 5 mg HS PRN PO INSOMNIA 12/22/17 20:15 12/26/17 20:30 Pantoprazole Sodium (Protonix) 40 mg Q12HR PO 12/22/17 21:00 12/29/17 21:14 Metoprolol Tartrate (Lopressor) 50 mg Q12HR PO 12/22/17 21:00 12/29/17 21:14 Megestrol Acetate (Megace Liq) 800 mg DAILY PO 12/23/17 09:00 12/29/17 10:31 Budesonide/ Formoterol Fumarate (Symbicort 160-4.5 Mcg Inh) 1 puff Q12HR INH 12/22/17 21:00 12/29/17 21:14 Aspirin (Ecotrin Ec) 81 mg DAILY PO 12/23/17 09:00 12/29/17 10:31 Atorvastatin Calcium (Lipitor) 80 mg DAILY PO 12/23/17 09:00 12/29/17 10:31 Multivitamins (Theragran) 1 tab DAILY PO 12/23/17 09:00 12/29/17 10:32 Heparin Sodium (Porcine) (Heparin Central Flush) 250 units UNSCH PRN IV FLUSH SEE PROTOCOL 12/22/17 20:30 12/27/17 20:27 Insulin Aspart (NovoLOG SUPPLEMENTAL SCALE) 1 ACHS SLIDING SCALE SQ 12/22/17 21:00 12/30/17 08:02 Guaifenesin/ Dextromethorphan (Robitussin Dm 200-20 Mg/10 ml Liq) 10 ml Q4H PRN PO cough interfering with rest 12/22/17 21:00 12/26/17 18:27 Guaifenesin (Mucinex Er) 600 mg BID PO 12/23/17 21:00 12/29/17 21:14 Allopurinol (Zyloprim) 300 mg DAILY PO 12/26/17 09:00 12/29/17 10:31 Acetaminophen (Tylenol) 650 mg Q4H PRN PO FEVER>100.8dlhrkb9-0 12/26/17 14:45 12/26/17 20:32 Methylprednisolone Sodium Succinate (SoluMEDROL INJ) 40 mg Q6HR IV PUSH 12/27/17 12:00 12/30/17 05:16 Piperacillin Sod/ Tazobactam Sod 100 ml @ 200 mls/hr Q6H IV 12/27/17 14:00 12/30/17 07:55 Vancomycin HCl 1500 mg/Sodium Chloride 515 ml @ 250 mls/hr Q12H IV 12/27/17 15:00 12/30/17 02:37 Morphine Sulfate (Morphine Inj) 2 mg Q2HR PRN IV PUSH pain3-5 12/27/17 15:30 12/30/17 02:37 Morphine Sulfate (Morphine Inj) 4 mg Q2HR PRN IV PUSH PAIN SCALE 6 TO 8 12/27/17 15:45 12/29/17 03:43 Acetylcysteine (Mucomyst 10% Neb) 2 ml TID NEB NEB 12/29/17 14:00 12/30/17 08:00 Albuterol/ Ipratropium (Duoneb Neb) 1 ampule TID NEB INH 12/29/17 14:00 12/29/17 19:30 Objective Remarks GENERAL: chronically ill appearing male, supine in bed, +wet cough. on O2 via NC SKIN: Warm and dry. HEAD: Normocephalic. EYES: No injection or drainage. NECK: Supple, trachea midline. CARDIOVASCULAR: +S1/S2, tachy RESPIRATORY: coarse scattered rhonchi. GASTROINTESTINAL: Abdomen soft, non-tender, nondistended. EXTREMITIES: No cyanosis. NEUROLOGICAL: awake, alert. no focal deficit. Assessment/Plan Assessment 72y/o male with newly diagnosed anaplastic large cell NHL. h/o COPD, hypercholesterolemia, hypertension, history of previous stroke. HPI: started 8 weeks ago with a cough mixed with greenish phlegm and shortness of breath. CT cap showed diffuse lymphadenopathy on both sides of the diaphragm. PET scan showed increased uptake in the lymph nodes involving the neck, chest, mediastinal and hilar area, retroperitoneum and pelvic lymph nodes. biopsy of the left neck mass=anaplastic large cell NHL echocardiogram, LVEF=55-70%. MUGA scan, showed EF of 60%. Plan 1. diarrhea: I think this is d/t tube feeding, but I will check C. diff. awaiting bolus tube feeding recommendations via medication tech. will order immodium if C. diff is negative. 2. monitor CBC 3. would discharge to rehab once cleared by pulmonology and infectious disease. Attending Statement The exam, history, and the medical decision-making described in the above note were completed with the assistance of the mid-level provider. I reviewed and agree with the findings presented. I attest that I had a [id number] encounter with the patient on the same day, and personally performed and documented my assessment and findings in the medical record. he is more sob and lung sounds markedly decreased. suspect he will need a thoracentesis again. will check ct of thorax without contrast. on multiple antibiotics but suspect major problem is related to effusions. Susy La Dec 30, 2017 10:10 Yash Martinez MD Dec 30, 2017 13:25
[2017-12-30] MEDS: ASPIRIN EC 81 MG TABEC PO SCH (10:18)
[2017-12-30] MEDS: METOPROLOL TARTRATE 50 MG TAB PO SCH ×2 (10:18→23:06)
[2017-12-30] MEDS: MULTIVITAMIN TAB PO SCH (10:18)
[2017-12-30] MEDS: ALLOPURINOL 300 MG TAB PO SCH (10:18)
[2017-12-30] MEDS: ATORVASTATIN 80 MG TAB PO SCH (10:18)
[2017-12-30] MEDS: PANTOPRAZOLE SOD 40 MG DELAYED RELEASE TAB PO SCH ×2 (10:18→23:06)
[2017-12-30] MEDS: SODIUM CHLORIDE 0.9% FLUSH 10 ML FLUSH IV FLUSH SCH ×2 (10:19→23:09)
[2017-12-30] MEDS: BUDESONIDE-FORMOTEROL 160/4.5 MCG INHALER INH SCH ×2 (10:19→23:08)
[2017-12-30] MEDS: MEGESTROL ACETATE SUSP 400 MG/10 ML CUP PO SCH (10:19)
[2017-12-30] MEDS: guaiFENesin E.R. 600 MG TAB PO SCH ×2 (10:19→23:06)
--- NOTE | 2017-12-30 11:00 | HHI.IDPN ---
Note Infectious Disease Note Patient continues to have cough and congestion. No sputum production. Reports diarrhea. Underwent right thoracentesis. Awake and alert alert. Appetite is good. Notes that he feels a little stronger. Discussed with RN. 72-year-old white male who was diagnosed with lymphoma. The patient was noted to have become ill 2 months ago. He was noted to have cough and he was given 3 rounds of oral antibiotics without improvement of the cough. Subsequent workup revealed mediastinal adenopathy and other areas of adenopathy, and a biopsy of the lesion of the neck came back showing lymphoma. During his stay at [facility], he had no fever. He was given antibiotics. An Infusaport was placed on 12/20 for anticipated chemotherapy. PAST MEDICAL HISTORY: Stage IIIB anaplastic large cell lymphoma, COPD, hypertension, hyperlipidemia, history of CVA without residual deficits, nonsustained V-tach at [facility], neuropathy of the lower extremities, back surgery, Infusaport placement on 12/20/2017. ALLERGIES: HYDROCODONE. MEDICATIONS: Current Medications Medications (Trade) Dose Ordered Sig/Candace Route PRN Reason Start Time Stop Time Status Last Admin Dose Admin Sodium Chloride (NS Flush) 2 ml UNSCH PRN IV FLUSH FLUSH AFTER USING IV ACCESS 12/22/17 18:15 Sodium Chloride (NS Flush) 2 ml BID IV FLUSH 12/22/17 21:00 12/30/17 10:19 Ondansetron HCl (Zofran Inj) 4 mg Q6H PRN IVP NAUSEA OR VOMITING 12/22/17 18:15 Naloxone HCl (Narcan Inj) 0.4 mg UNSCH PRN IV PUSH SEE LABEL COMMENTS 12/22/17 18:15 Senna/Docusate Sodium (Mary Kay-Colace) 1 tab BID PO 12/22/17 21:00 12/29/17 10:32 Magnesium Hydroxide (Milk Of Magnesia Liq) 30 ml Q12H PRN PO Mild constipation 12/22/17 18:15 Sennosides (Senokot) 17.2 mg Q12H PRN PO Moderate constipation 12/22/17 18:15 Lactulose (Lactulose Liq) 30 ml DAILY PRN PO SEVERE CONSITIPATION 12/22/17 18:15 Albuterol/ Ipratropium (Duoneb Neb) 1 ampule Q4HR NEB PRN NEB SOB/WHEEZING 12/22/17 20:15 12/29/17 07:51 Zolpidem Tartrate (Ambien) 5 mg HS PRN PO INSOMNIA 12/22/17 20:15 12/26/17 20:30 Pantoprazole Sodium (Protonix) 40 mg Q12HR PO 12/22/17 21:00 12/30/17 10:18 Metoprolol Tartrate (Lopressor) 50 mg Q12HR PO 12/22/17 21:00 12/30/17 10:18 Megestrol Acetate (Megace Liq) 800 mg DAILY PO 12/23/17 09:00 12/30/17 10:19 Budesonide/ Formoterol Fumarate (Symbicort 160-4.5 Mcg Inh) 1 puff Q12HR INH 12/22/17 21:00 12/30/17 10:19 Aspirin (Ecotrin Ec) 81 mg DAILY PO 12/23/17 09:00 12/30/17 10:18 Atorvastatin Calcium (Lipitor) 80 mg DAILY PO 12/23/17 09:00 12/30/17 10:18 Multivitamins (Theragran) 1 tab DAILY PO 12/23/17 09:00 12/30/17 10:18 Heparin Sodium (Porcine) (Heparin Central Flush) 500 units UNSCH IV FLUSH 12/22/17 20:30 Sodium Chloride (NS Flush) 5 ml UNSCH PRN IVF SEE PROTOCOL 12/22/17 20:30 Heparin Sodium (Porcine) (Heparin Central Flush) 250 units UNSCH PRN IV FLUSH SEE PROTOCOL 12/22/17 20:30 12/27/17 20:27 Dextrose (D50w (Vial) Inj) 50 ml UNSCH PRN IV PUSH HYPOGLYCEMIA-SEE COMMENTS 12/22/17 20:30 Glucagon (Glucagon Inj) 1 mg UNSCH PRN OTHER HYPOGLYCEMIA-SEE COMMENTS 12/22/17 20:30 Insulin Aspart (NovoLOG SUPPLEMENTAL SCALE) 1 ACHS SLIDING SCALE SQ 12/22/17 21:00 12/30/17 08:02 Guaifenesin/ Dextromethorphan (Robitussin Dm 200-20 Mg/10 ml Liq) 10 ml Q4H PRN PO cough interfering with rest 12/22/17 21:00 12/26/17 18:27 Guaifenesin (Mucinex Er) 600 mg BID PO 12/23/17 21:00 12/30/17 10:19 Benzonatate (Tessalon) 100 mg TID PRN PO cough 12/25/17 12:00 Allopurinol (Zyloprim) 300 mg DAILY PO 12/26/17 09:00 12/30/17 10:18 Acetaminophen (Tylenol) 650 mg Q4H PRN PO FEVER>100.9uooago0-5 12/26/17 14:45 12/26/17 20:32 Methylprednisolone Sodium Succinate (SoluMEDROL INJ) 40 mg Q6HR IV PUSH 12/27/17 12:00 12/30/17 05:16 Piperacillin Sod/ Tazobactam Sod 100 ml @ 200 mls/hr Q6H IV 12/27/17 14:00 12/30/17 07:55 Pharmacy Profile Note 0 ml @ 0 mls/hr UNSCH OTHER 12/27/17 12:45 Vancomycin HCl 1500 mg/Sodium Chloride 515 ml @ 250 mls/hr Q12H IV 12/27/17 15:00 12/30/17 02:37 Morphine Sulfate (Morphine Inj) 2 mg Q2HR PRN IV PUSH pain3-5 12/27/17 15:30 12/30/17 02:37 Morphine Sulfate (Morphine Inj) 4 mg Q2HR PRN IV PUSH PAIN SCALE 6 TO 8 12/27/17 15:45 12/29/17 03:43 Morphine Sulfate (Morphine Inj) 6 mg Q2HR PRN IV PUSH pain9-10 12/27/17 17:15 Acetylcysteine (Mucomyst 10% Neb) 2 ml TID NEB NEB 12/29/17 14:00 12/30/17 08:00 Albuterol/ Ipratropium (Duoneb Neb) 1 ampule TID NEB INH 12/29/17 14:00 12/29/17 19:30 SOCIAL HISTORY: Patient is . Patient is a prior smoker. No alcohol use. No illicit drugs. OBJECTIVE: Vital Signs Date Time Temp Pulse Resp B/P (MAP) Pulse Ox O2 Delivery O2 Flow Rate FiO2 12/30/17 10:14 98.0 76 18 150/86 (107) 95 12/30/17 08:16 77 12/30/17 06:00 88 12/30/17 05:12 97.7 73 20 158/78 (104) 94 12/30/17 05:00 72 12/30/17 03:56 72 12/30/17 03:00 64 12/30/17 02:43 18 12/30/17 02:00 68 12/30/17 01:00 76 12/30/17 00:55 97.9 73 20 155/79 (104) 93 12/30/17 00:06 77 12/29/17 23:00 72 12/29/17 22:00 70 12/29/17 21:00 88 12/29/17 20:01 81 12/29/17 20:00 97.8 86 16 141/75 (97) 94 12/29/17 20:00 Nasal Cannula 2.00 12/29/17 19:34 93 Nasal Cannula 2.00 12/29/17 19:00 90 12/29/17 18:00 82 12/29/17 17:00 88 12/29/17 16:00 97.8 112 18 135/78 (97) 94 12/29/17 16:00 72 12/29/17 15:00 68 12/29/17 14:00 76 12/29/17 13:00 98.1 92 18 137/81 (99) 94 12/29/17 13:00 70 12/29/17 12:00 66 12/29/17 11:00 78 Microbiology Date/Time Source Procedure Growth Status 12/28/17 12:15 Fluid Pleural Fluid Fungal Smear Pending Received 12/28/17 12:15 Fluid Pleural Fluid Fungal Culture Pending Received 12/28/17 12:15 Fluid Pleural Fluid Acid Fast Stain Pending Received 12/28/17 12:15 Fluid Pleural Fluid Mycobacterial Culture Pending Received 12/28/17 12:15 Fluid Pleural Fluid Gram Stain - Final Resulted 12/28/17 12:15 Fluid Pleural Fluid Body Fluid Culture - Preliminary NO GROWTH IN 48 HOURS. Resulted IMAGING: Chest X-Ray 12/28/17 0000 Signed Impressions: Service Date/Time: Thursday, December 28, 2017 12:37 - CONCLUSION: 1. No pneumothorax is noted. 2. Small left pleural effusion. 3. Mild pulmonary vasculature congestion which is slightly improved compared previous examination. Lee Mijares MD Chest X-Ray 12/27/17 0000 Signed Impressions: Service Date/Time: December 01:54 - CONCLUSION: Worsening infiltrates. Siva Bean Jr., MD Chest Ultrasound 12/27/17 0000 Signed Impressions: Service Date/Time: December 21:39 - CONCLUSION: Large left pleural effusion and would be amenable to thoracentesis. Frandy was made on the overlying skin. Andres Parekh MD Chest Ultrasound 12/27/17 0000 Signed Impressions: Service Date/Time: December 21:35 - CONCLUSION: Large right pleural effusion and is amenable to thoracentesis. Frandy made on the overlying skin. Andres Parekh MD Bone Biopsy CT 12/25/17 1142 Signed Impressions: Service Date/Time: Monday, December 25, 2017 12:32 - CONCLUSION: 1. Uncomplicated CT guided bone marrow aspirate. 2. Uncomplicated CT guided bone marrow biopsy. Lee Mijares MD CT Angiography 12/25/17 0000 Signed Impressions: Service Date/Time: Monday, December 25, 2017 09:26 - CONCLUSION: 1. No CT evidence for pulmonary artery embolism. 2. Moderate to large bilateral pleural effusions with associated compressive atelectasis at the lung bases. 3. 8mm nodule in the right middle lobe. Followup CT examination may be performed at 6 months to document stability if this has not been evaluated previously. 4. Very mildly prominent mediastinal and hilar nodes and partially imaged upper abdominal lymphadenopathy in this patient with history of lymphoma. Miguel Ashton MD Chest X-Ray 12/24/17 0000 Signed Impressions: Service Date/Time: Sunday, December 24, 2017 10:34 - CONCLUSION: 1. Stable bilateral lower lobe air space consolidation and small pleural effusions, right worse than left. Miguel Ashton MD PHYSICAL EXAMINATION: GENERAL: Awake and alert. HEENT: Extraocular movements grossly intact. Pupils reactive to light. No icterus. Oropharynx, dry mucosa without lesions. No thrush. NECK: Supple without adenopathy or swelling. LUNGS: Decreased breath sounds bilateral. Good air movement. No rhonchi. HEART: Regular S1 and S2. No murmurs, rubs or gallops. ABDOMEN: Bowel sounds present, soft, mild tenderness on palpation at the epigastrium. EXTREMITIES: No clubbing or cyanosis, 1+ edema of the lower extremities. SKIN: No rash. NEUROLOGIC: No gross focal finding. PSYCHIATRIC: Calm and cooperative. IMPRESSION: 1. Bibasilar lung infiltrates in patient with cough and immunosuppression secondary to lymphoma. 2. Bilateral pleural effusions. Probably contributing to his dyspnea. Post thoracentesis. Breathing is improved. 3. Lymphoma. Treated with chemotherapy. 4. Leukocytosis likely secondary to lymphoma but at this time, cannot exclude infection. 5. Decreased nutrition in patient with anorexia and now post percutaneous endoscopic gastrostomy placement. 6. Patient now has diarrhea. Possible due to tube feeds Versus antibiotics. Clinically appears improved. RECOMMENDATIONS: 1. Continue Zosyn. 2. Continue vancomycin. 3. Monitor temperature and white blood cell count. 4. Obtain stool C. difficile PCR toxin. 5. Sputum culture if he is able to cough up a specimen. I have ordered a sputum culture. I will also check pro-calcitonin level. 6. Follow pleural fluid culture after thoracentesis is performed. Discussed with patient's and patient. Lenin Saloomn MD Dec 30, 2017 11:00
[2017-12-30 11:18] LABS: AUTOMATED NEUTROPHIL # 9.7 TH/MM3 (1.8-7.7); HEMATOCRIT 23.9 % (39.0-51.0); HEMOGLOBIN 7.9 GM/DL (13.0-17.0); LYMPH % 0.7 % (9.0-44.0); LYMPHOCYTE # 0.1 TH/MM3 (1.0-4.8); MEAN CELL VOLUME 84.4 FL (80.0-100.0); MEAN CORPUSCULAR HEMOGLOBIN 27.9 PG (27.0-34.0); MEAN CORPUSCULAR HGB CONC 33.1 % (32.0-36.0); MONO % 0.1 % (0.0-8.0); NEUT % 99.2 % (16.0-70.0); PLATELET COUNT 197 TH/MM3 (150-450); RED BLOOD COUNT 2.83 MIL/MM3 (4.50-5.90); RED CELL DISTRIBUTION WIDTH 19.6 % (11.6-17.2); WHITE BLOOD COUNT 9.8 TH/MM3 (4.0-11.0)
[2017-12-30 11:40] LABS: ALBUMIN 1.4 GM/DL (3.4-5.0); AST (GOT) 28 U/L (15-37); BICARBONATE 27.4 MEQ/L (21.0-32.0); BLOOD UREA NITROGEN 37 MG/DL (7-18); CALCIUM 7.8 MG/DL (8.5-10.1); CHLORIDE 112 MEQ/L (98-107); CREATININE 0.79 MG/DL (0.60-1.30); GLOMERULAR FILTRATION RATE 96 ML/MIN (>89); GLUCOSE,RANDOM 206 MG/DL (74-106); SODIUM (NA) 147 MEQ/L (136-145)
[2017-12-30 11:41] LABS: ALT (GPT) 39 U/L (12-78)
[2017-12-30 11:55] LABS: ALKALINE PHOSPHATASE 84 U/L (45-117); TOTAL BILIRUBIN ADULT 0.4 MG/DL (0.2-1.0); TOTAL PROTEIN 4.5 GM/DL (6.4-8.2)
--- NOTE | 2017-12-30 11:57 | HHI.PR ---
Subjective Remarks Follow-up anaplastic NHL/bilateral pleural effusion/pulmonary infiltrate/ respiratory failure 12/29/17-patient seen and examined, no significant shortness of breath, decreased appetite, currently afebrile 12/30/17-patient seen and examined, had diarrhea episodes overnight until this morning. Not much of an appetite. Afebrile. by the bedside. Objective Vitals Vital Signs Date Time Temp Pulse Resp B/P (MAP) Pulse Ox O2 Delivery O2 Flow Rate FiO2 12/30/17 11:33 97.6 70 18 148/86 (106) 97 12/30/17 10:14 98.0 76 18 150/86 (107) 95 12/30/17 08:16 77 12/30/17 06:00 88 12/30/17 05:12 97.7 73 20 158/78 (104) 94 12/30/17 05:00 72 12/30/17 03:56 72 12/30/17 03:00 64 12/30/17 02:43 18 12/30/17 02:00 68 12/30/17 01:00 76 12/30/17 00:55 97.9 73 20 155/79 (104) 93 12/30/17 00:06 77 12/29/17 23:00 72 12/29/17 22:00 70 12/29/17 21:00 88 12/29/17 20:01 81 12/29/17 20:00 97.8 86 16 141/75 (97) 94 12/29/17 20:00 Nasal Cannula 2.00 12/29/17 19:34 93 Nasal Cannula 2.00 12/29/17 19:00 90 12/29/17 18:00 82 12/29/17 17:00 88 12/29/17 16:00 97.8 112 18 135/78 (97) 94 12/29/17 16:00 72 12/29/17 15:00 68 12/29/17 14:00 76 12/29/17 13:00 98.1 92 18 137/81 (99) 94 12/29/17 13:00 70 12/29/17 12:00 66 I/O 12/29/17 12/29/17 12/29/17 12/30/17 12/30/17 12/30/17 07:00 15:00 23:00 07:00 15:00 23:00 Intake Total 480 ml 720 ml 1394 ml Output Total 400 ml 900 ml 450 ml Balance 80 ml -180 ml 944 ml Intake Oral 480 ml 720 ml 480 ml Tube Feeding 514 ml Other 400 ml Output Urine Total 400 ml 900 ml 450 ml # Voids 1 1 # Bowel Movements 1 1 1 Result Diagram: 12/30/17 1025 12/30/17 1025 Imaging Last Impressions Chest X-Ray 12/28/17 0000 Signed Impressions: Service Date/Time: Thursday, December 28, 2017 12:37 - CONCLUSION: 1. No pneumothorax is noted. 2. Small left pleural effusion. 3. Mild pulmonary vasculature congestion which is slightly improved compared previous examination. Lee Mijares MD Chest Ultrasound 12/27/17 0000 Signed Impressions: Service Date/Time: December 21:39 - CONCLUSION: Large left pleural effusion and would be amenable to thoracentesis. Frandy was made on the overlying skin. Andres Parekh MD Bone Biopsy CT 12/25/17 1142 Signed Impressions: Service Date/Time: Monday, December 25, 2017 12:32 - CONCLUSION: 1. Uncomplicated CT guided bone marrow aspirate. 2. Uncomplicated CT guided bone marrow biopsy. Lee Mijares MD CT Angiography 12/25/17 0000 Signed Impressions: Service Date/Time: Monday, December 25, 2017 09:26 - CONCLUSION: 1. No CT evidence for pulmonary artery embolism. 2. Moderate to large bilateral pleural effusions with associated compressive atelectasis at the lung bases. 3. 8mm nodule in the right middle lobe. Followup CT examination may be performed at 6 months to document stability if this has not been evaluated previously. 4. Very mildly prominent mediastinal and hilar nodes and partially imaged upper abdominal lymphadenopathy in this patient with history of lymphoma. Miguel Ashton MD Objective Remarks GENERAL: NAD SKIN: Warm and dry. HEAD: Normocephalic. EYES: No scleral icterus. No injection or drainage. NECK: Supple, trachea midline. No JVD or lymphadenopathy. CARDIOVASCULAR: Regular rate and rhythm without murmurs, gallops, or rubs. RESPIRATORY: Breath sounds decrease bilaterally. No accessory muscle use. GASTROINTESTINAL: Abdomen soft, non-tender, nondistended. MUSCULOSKELETAL: No cyanosis, or edema. BACK: Nontender without obvious deformity. No CVA tenderness. 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 - Anaplastic large cell lymphoma, ALK-negative, unspecified site (2) COPD (chronic obstructive pulmonary disease) ICD Code: J44.9 - Chronic obstructive pulmonary disease, unspecified Status: Chronic (3) Hypertension ICD Code: I10 - Essential (primary) hypertension Status: Chronic (4) Hyperlipidemia ICD Code: E78.5 - Hyperlipidemia, unspecified Status: Chronic Assessment and Plan 72-year-old man with Anaplastic large cell lymphoma ALK negative Management per oncology Continue current pain management Failure to thrive Dietitian consultation pending Calorie count Tube feed COPD - Supplemental oxygen as needed - Continue Proventil inhalers - Bronchodilator, Mucolytic and incentive spirometry. - Continue prednisone 5 mg by mouth daily, Diarrhea Rule out C. difficile with C. difficile PCR and treat accordingly Pulmonary infiltrates Continue with Zosyn and vancomycin Appreciate input from ID Bilateral Pleural effusions Status post thoracentesis 12/28/17 Management per pulmonary medicine Anxiety - Continue lorazepam 1 mg by mouth every 8 hours when necessary for moderate to severe anxiety Hyperlipidemia - Continue home atorvastatin 80 mg by mouth daily Hypertension - Continue metoprolol 50 mg by mouth every 12 hours Steroid-induced hyperglycemia - continue Accu-Cheks before meals and at bedtime with low-dose NovoLog sliding scale coverage - Monitor trends and blood glucose levels and adjust treatments accordingly Hx of NSVT at [facility] per record review - continuous cardiac telemetry to monitor for dysrhythmia - patient will need stress test as an outpatient at some point in time - nuclear med MUGA scan showed EF 81% at [facility] - as per Cardiology sinus rhythm with arrhythmia, not recommended anticoagulation at this time. Hypokalemia : Resolved status post replacement DVT prophylaxis - Kaveh Chung MD Dec 30, 2017 11:57
--- NOTE | 2017-12-30 12:34 | RADRPT ---
EXAM DATE/TIME: 12/30/2017 11:55 [facility] COMPARISON: CHEST SINGLE AP, December 28, 2017, 12:37. INDICATIONS : Shortness of breath and cough. MEDICAL HISTORY : Hypertension. Hypercholesterolemia. Chronic obstructive pulmonary disease. CVA. Lymphoma. SURGICAL HISTORY : Infusaport. ENCOUNTER: Subsequent ACUITY: 3 days PAIN SCORE: 0/10 LOCATION: Bilateral chest FINDINGS: AP portable semiupright view of the chest again demonstrates a right-sided central line with the tip overlying the distal SVC. The heart size appears grossly normal in size. There is bilateral hazy airs pace opacities overlying the right and left lower lobes with obscuration of the left hemidiaphragm. T he lung apices are clear. CONCLUSION: Stable exam consistent with bilateral pleural effusions and/or overlying atelectasis. Radha Polanco MD on December 30, 2017 at 12:30 Board Certified Radiologist. This report was verified electronically.
[2017-12-30] MEDS ORDERED: NS + KCL 40 MEQ INJ 1,000 ML IV SCH (13:30)
--- NOTE | 2017-12-30 21:47 | RADRPT ---
EXAM DATE/TIME: 12/30/2017 21:13 [facility] COMPARISON: No previous studies available for comparison. INDICATIONS : Evaluate pleural effusion. RADIATION DOSE: 9.58 CTDIvol (mGy) MEDICAL HISTORY : Cardiovascular disease. Cerebrovascular disease. Hypertension. Lymphoma SURGICAL HISTORY : None. ENCOUNTER: Subsequent ACUITY: 1 week PAIN SCALE: 0/10 LOCATION: chest TECHNIQUE: Volumetric scanning of the chest was performed. Using automated exposure control and adjustment of t he mA and/or kV according to patient size, radiation dose was kept as low as reasonably achievable to obtain optimal diagnostic quality images. DICOM format image data is available electronically for r eview and comparison. Follow-up recommendations for detected pulmonary nodules are based at a minimum on nodule size and pa tient risk factors according to Fleischner Society Guidelines. FINDINGS: There are moderate-sized bilateral pleural effusions with patchy airspace consolidation in the right upper lobe and compressive atelectasis posteriorly. [id number]-w-Tkbi tip is in the superior vena cava. M ildly enlarged subcarinal lymph node. Gastrostomy tube is present. There is free intraperitoneal air in the upper abdomen. It is unclear if this is related to gastrostomy. There is air in the subcutaneous tissues of the abdominal wall as we ll. There is mild to moderate ascites. Moderate anasarca. CONCLUSION: 1. Free intraperitoneal air in the upper abdomen of uncertain etiology. There is a gastrostomy presen t. 2. Moderate bilateral pleural effusions with compressive atelectasis. Patchy air space consolidation in the right upper lobe. 3. Moderate anasarca and ascites. 4. Findings called to the floor at the time of dictation. Elbert Carrasquillo MD on December 30, 2017 at 21:29 Board Certified Radiologist. This report was verified electronically.
[2017-12-31] VITALS (19 sets, daily range): BP systolic 116–145; BP diastolic 77–86; PULSE 64–82; RESP 16–20; TEMP 97.5–98; O2SAT 93–98
[2017-12-31] MEDS: PIPERACIL-TAZO 4.5 GM PREMIX 100 ML IV SCH ×4 (02:40→21:14)
[2017-12-31] MEDS: VANCOMYCIN INJ 1,500 MG in SODIUM CHLORID 0.9% 500 ML INJ 500 ML IV SCH ×2 (02:40→18:02)
[2017-12-31] MEDS: methylPREDNISolone SOD SUCC 40 MG/1 ML VIAL IV PUSH SCH ×3 (05:28→21:17)
[2017-12-31 06:12] LABS: HEMATOCRIT 23.3 % (39.0-51.0); HEMOGLOBIN 7.7 GM/DL (13.0-17.0); MEAN CELL VOLUME 83.5 FL (80.0-100.0); MEAN CORPUSCULAR HEMOGLOBIN 27.8 PG (27.0-34.0); MEAN CORPUSCULAR HGB CONC 33.2 % (32.0-36.0); MEAN PLATELET VOLUME 8.1 FL (7.0-11.0); PLATELET COUNT 176 TH/MM3 (150-450); RED BLOOD COUNT 2.79 MIL/MM3 (4.50-5.90); RED CELL DISTRIBUTION WIDTH 19.5 % (11.6-17.2); WHITE BLOOD COUNT 3.2 TH/MM3 (4.0-11.0)
[2017-12-31 06:35] LABS: ALBUMIN 1.5 GM/DL (3.4-5.0); ALT (GPT) 47 U/L (12-78); AST (GOT) 31 U/L (15-37); BICARBONATE 30.2 MEQ/L (21.0-32.0); BLOOD UREA NITROGEN 36 MG/DL (7-18); CALCIUM 7.6 MG/DL (8.5-10.1); CHLORIDE 112 MEQ/L (98-107); CREATININE 0.75 MG/DL (0.60-1.30); GLOMERULAR FILTRATION RATE 102 ML/MIN (>89); GLUCOSE,RANDOM 157 MG/DL (74-106); SODIUM (NA) 150 MEQ/L (136-145)
[2017-12-31 06:38] LABS: ALKALINE PHOSPHATASE 79 U/L (45-117); TOTAL BILIRUBIN ADULT 0.6 MG/DL (0.2-1.0); TOTAL PROTEIN 4.6 GM/DL (6.4-8.2)
[2017-12-31] MEDS: RESP: ALBUTEROL 2.5 MG/IPRATROPIUM 0.5 MG NEB (SCH) INH ×4 (08:23→20:23)
[2017-12-31] MEDS: RESP: ACETYLCYSTEINE 10% 30 ML NEB NEB SCH ×3 (08:23→20:22)
[2017-12-31] MEDS: ALLOPURINOL 300 MG TAB PO SCH (08:32)
[2017-12-31] MEDS: MEGESTROL ACETATE SUSP 400 MG/10 ML CUP PO SCH (08:32)
[2017-12-31] MEDS: DOCUSATE SODIUM 50 MG/SENNA 8.6 MG TAB PO SCH ×2 (08:32→21:00)
[2017-12-31] MEDS: ATORVASTATIN 80 MG TAB PO SCH (08:32)
[2017-12-31] MEDS: METOPROLOL TARTRATE 50 MG TAB PO SCH ×2 (08:33→21:17)
[2017-12-31] MEDS: SODIUM CHLORIDE 0.9% FLUSH 10 ML FLUSH IV FLUSH SCH ×2 (08:33→21:18)
[2017-12-31] MEDS: PANTOPRAZOLE SOD 40 MG DELAYED RELEASE TAB PO SCH ×2 (08:33→21:17)
[2017-12-31] MEDS: guaiFENesin E.R. 600 MG TAB PO SCH ×2 (08:33→21:17)
[2017-12-31] MEDS: ASPIRIN EC 81 MG TABEC PO SCH (08:33)
[2017-12-31] MEDS: INSULIN ASPART SUPPLEMENTAL SCALE SQ SCH ×4 (08:35→22:40)
[2017-12-31] MEDS: MULTIVITAMIN TAB PO SCH (08:36)
[2017-12-31] MEDS: BUDESONIDE-FORMOTEROL 160/4.5 MCG INHALER INH SCH ×2 (08:37→21:19)
[2017-12-31 09:11] LABS: BANDS 2 % (0-6); LYMPHOCYTES 3 % (9-44); NEUTROPHIL # MANUAL DIFF 3.1 TH/MM3 (1.8-7.7); OVALOCYTES 1+ (NORMAL); POLYS (SEG NEUTROPHILS) 95 % (16-70)
--- NOTE | 2017-12-31 10:02 | HHI.PR ---
Subjective Remarks Follow-up anaplastic NHL/bilateral pleural effusion/pulmonary infiltrate/ respiratory failure 12/29/17-patient seen and examined, no significant shortness of breath, decreased appetite, currently afebrile 12/30/17-patient seen and examined, had diarrhea episodes overnight until this morning. Not much of an appetite. Afebrile. by the bedside. 12/31/17-patient seen and examined; still with episode of diarrhea otherwise stable. C. difficile PCR negative Objective Vitals Vital Signs Date Time Temp Pulse Resp B/P (MAP) Pulse Ox O2 Delivery O2 Flow Rate FiO2 12/31/17 08:25 94 Nasal Cannula 2.00 12/31/17 04:00 Nasal Cannula 2.00 40 12/31/17 04:00 68 16 145/77 (99) 93 12/31/17 03:00 68 12/31/17 02:00 80 12/31/17 01:00 64 12/31/17 00:00 76 12/31/17 00:00 71 12/30/17 23:00 78 12/30/17 22:00 84 12/30/17 22:00 Nasal Cannula 2.00 40 12/30/17 20:00 95 12/30/17 20:00 84 12/30/17 20:00 98.9 91 18 126/82 (97) 96 12/30/17 19:19 95 Nasal Cannula 2.00 12/30/17 19:00 82 12/30/17 17:00 64 12/30/17 16:00 76 12/30/17 15:09 97.8 66 18 145/72 (96) 95 12/30/17 15:00 78 12/30/17 14:00 74 12/30/17 13:00 68 12/30/17 12:00 66 12/30/17 11:33 97.6 70 18 148/86 (106) 97 12/30/17 11:00 71 12/30/17 10:14 98.0 76 18 150/86 (107) 95 12/30/17 10:14 95 Nasal Cannula 2.00 I/O 12/30/17 12/30/17 12/30/17 12/31/17 12/31/17 12/31/17 07:00 15:00 23:00 07:00 15:00 23:00 Intake Total 1394 ml 200 ml 1115 ml 1790 ml Output Total 450 ml 750 ml 575 ml Balance 944 ml 200 ml 365 ml 1215 ml Intake Oral 480 ml 600 ml 120 ml IV Total 200 ml 515 ml 950 ml Tube Feeding 514 ml 720 ml Other 400 ml Output Urine Total 450 ml 750 ml 575 ml Gastric Drainage Total 0 ml # Voids 1 3 # Bowel Movements 1 2 2 Result Diagram: 12/31/1725 12/31/17524 Objective Remarks GENERAL: NAD SKIN: Warm and dry. HEAD: Normocephalic. EYES: No scleral icterus. No injection or drainage. NECK: Supple, trachea midline. No JVD or lymphadenopathy. CARDIOVASCULAR: Regular rate and rhythm without murmurs, gallops, or rubs. RESPIRATORY: Breath sounds decrease bilaterally. No accessory muscle use. GASTROINTESTINAL: Abdomen soft, non-tender, nondistended. MUSCULOSKELETAL: No cyanosis, or edema. BACK: Nontender without obvious deformity. No CVA tenderness. 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 - Anaplastic large cell lymphoma, ALK-negative, unspecified site (2) COPD (chronic obstructive pulmonary disease) ICD Code: J44.9 - Chronic obstructive pulmonary disease, unspecified Status: Chronic (3) Hypertension ICD Code: I10 - Essential (primary) hypertension Status: Chronic (4) Hyperlipidemia ICD Code: E78.5 - Hyperlipidemia, unspecified Status: Chronic Assessment and Plan 72-year-old man with Anaplastic large cell lymphoma ALK negative Management per oncology Continue current pain management Failure to thrive Calorie count Continue Tube feed COPD - Supplemental oxygen as needed - Continue Proventil inhalers - Bronchodilator, Mucolytic and incentive spirometry. - Continue prednisone 5 mg by mouth daily, Diarrhea C. difficile PCR negative Continue antidiarrhea motility agents Pulmonary infiltrates Continue with Zosyn and vancomycin Appreciate input from ID Bilateral Pleural effusions Status post thoracentesis 12/28/17 Management per pulmonary medicine Anxiety - Continue lorazepam 1 mg by mouth every 8 hours when necessary for moderate to severe anxiety Hyperlipidemia - Continue home atorvastatin 80 mg by mouth daily Hypertension - Continue metoprolol 50 mg by mouth every 12 hours Steroid-induced hyperglycemia - continue Accu-Cheks before meals and at bedtime with low-dose NovoLog sliding scale coverage - Monitor trends and blood glucose levels and adjust treatments accordingly Hx of NSVT at [facility] per record review - continuous cardiac telemetry to monitor for dysrhythmia - patient will need stress test as an outpatient at some point in time - nuclear med MUGA scan showed EF 81% at [facility] - as per Cardiology sinus rhythm with arrhythmia, not recommended anticoagulation at this time. Hypokalemia : Resolved status post replacement DVT prophylaxis - Kaveh Chung MD Dec 31, 2017 10:02
--- NOTE | 2017-12-31 11:56 | HHI.IDPN ---
Note Infectious Disease Note Patient continues to have cough and sounds more congested. Not able to cough up a sputum sample. Has loose bowel movements. Stool C. difficile negative. Underwent right thoracentesis. Awake and alert alert. Appetite is good. WBC is lower. CT scan of the chest showed patchy airspace consolidation in the right upper lobe 72-year-old white male who was diagnosed with lymphoma. The patient was noted to have become ill 2 months ago. He was noted to have cough and he was given 3 rounds of oral antibiotics without improvement of the cough. Subsequent workup revealed mediastinal adenopathy and other areas of adenopathy, and a biopsy of the lesion of the neck came back showing lymphoma. During his stay at [facility], he had no fever. He was given antibiotics. An Infusaport was placed on 12/20 for anticipated chemotherapy. PAST MEDICAL HISTORY: Stage IIIB anaplastic large cell lymphoma, COPD, hypertension, hyperlipidemia, history of CVA without residual deficits, nonsustained V-tach at [facility], neuropathy of the lower extremities, back surgery, Infusaport placement on 12/20/2017. ALLERGIES: HYDROCODONE. MEDICATIONS: Current Medications Medications (Trade) Dose Ordered Sig/Candace Route PRN Reason Start Time Stop Time Status Last Admin Dose Admin Sodium Chloride (NS Flush) 2 ml UNSCH PRN IV FLUSH FLUSH AFTER USING IV ACCESS 12/22/17 18:15 Sodium Chloride (NS Flush) 2 ml BID IV FLUSH 12/22/17 21:00 12/31/17 08:33 Ondansetron HCl (Zofran Inj) 4 mg Q6H PRN IVP NAUSEA OR VOMITING 12/22/17 18:15 Naloxone HCl (Narcan Inj) 0.4 mg UNSCH PRN IV PUSH SEE LABEL COMMENTS 12/22/17 18:15 Senna/Docusate Sodium (Mary Kay-Colace) 1 tab BID PO 12/22/17 21:00 12/31/17 08:32 Magnesium Hydroxide (Milk Of Magnesia Liq) 30 ml Q12H PRN PO Mild constipation 12/22/17 18:15 Sennosides (Senokot) 17.2 mg Q12H PRN PO Moderate constipation 12/22/17 18:15 Lactulose (Lactulose Liq) 30 ml DAILY PRN PO SEVERE CONSITIPATION 12/22/17 18:15 Albuterol/ Ipratropium (Duoneb Neb) 1 ampule Q4HR NEB PRN NEB SOB/WHEEZING 12/22/17 20:15 12/29/17 07:51 Zolpidem Tartrate (Ambien) 5 mg HS PRN PO INSOMNIA 12/22/17 20:15 12/26/17 20:30 Pantoprazole Sodium (Protonix) 40 mg Q12HR PO 12/22/17 21:00 12/31/17 08:33 Metoprolol Tartrate (Lopressor) 50 mg Q12HR PO 12/22/17 21:00 12/31/17 08:33 Megestrol Acetate (Megace Liq) 800 mg DAILY PO 12/23/17 09:00 12/31/17 08:32 Budesonide/ Formoterol Fumarate (Symbicort 160-4.5 Mcg Inh) 1 puff Q12HR INH 12/22/17 21:00 12/31/17 08:37 Aspirin (Ecotrin Ec) 81 mg DAILY PO 12/23/17 09:00 12/31/17 08:33 Atorvastatin Calcium (Lipitor) 80 mg DAILY PO 12/23/17 09:00 12/31/17 08:32 Multivitamins (Theragran) 1 tab DAILY PO 12/23/17 09:00 12/31/17 08:36 Heparin Sodium (Porcine) (Heparin Central Flush) 500 units UNSCH IV FLUSH 12/22/17 20:30 Sodium Chloride (NS Flush) 5 ml UNSCH PRN IVF SEE PROTOCOL 12/22/17 20:30 Heparin Sodium (Porcine) (Heparin Central Flush) 250 units UNSCH PRN IV FLUSH SEE PROTOCOL 12/22/17 20:30 12/27/17 20:27 Dextrose (D50w (Vial) Inj) 50 ml UNSCH PRN IV PUSH HYPOGLYCEMIA-SEE COMMENTS 12/22/17 20:30 Glucagon (Glucagon Inj) 1 mg UNSCH PRN OTHER HYPOGLYCEMIA-SEE COMMENTS 12/22/17 20:30 Insulin Aspart (NovoLOG SUPPLEMENTAL SCALE) 1 ACHS SLIDING SCALE SQ 12/22/17 21:00 12/31/17 08:35 Guaifenesin/ Dextromethorphan (Robitussin Dm 200-20 Mg/10 ml Liq) 10 ml Q4H PRN PO cough interfering with rest 12/22/17 21:00 12/26/17 18:27 Guaifenesin (Mucinex Er) 600 mg BID PO 12/23/17 21:00 12/31/17 08:33 Benzonatate (Tessalon) 100 mg TID PRN PO cough 12/25/17 12:00 Allopurinol (Zyloprim) 300 mg DAILY PO 12/26/17 09:00 12/31/17 08:32 Acetaminophen (Tylenol) 650 mg Q4H PRN PO FEVER>[id number] 12/26/17 14:45 12/26/17 20:32 Methylprednisolone Sodium Succinate (SoluMEDROL INJ) 40 mg Q6HR IV PUSH 12/27/17 12:00 12/31/17 05:28 Piperacillin Sod/ Tazobactam Sod 100 ml @ 200 mls/hr Q6H IV 12/27/17 14:00 12/31/17 08:31 Pharmacy Profile Note 0 ml @ 0 mls/hr UNSCH OTHER 12/27/17 12:45 Vancomycin HCl 1500 mg/Sodium Chloride 515 ml @ 250 mls/hr Q12H IV 12/27/17 15:00 12/31/17 02:40 Morphine Sulfate (Morphine Inj) 2 mg Q2HR PRN IV PUSH pain3-5 12/27/17 15:30 12/30/17 02:37 Morphine Sulfate (Morphine Inj) 4 mg Q2HR PRN IV PUSH PAIN SCALE 6 TO 8 12/27/17 15:45 12/29/17 03:43 Morphine Sulfate (Morphine Inj) 6 mg Q2HR PRN IV PUSH pain9-10 12/27/17 17:15 Acetylcysteine (Mucomyst 10% Neb) 2 ml TID NEB NEB 12/29/17 14:00 12/31/17 11:15 Albuterol/ Ipratropium (Duoneb Neb) 1 ampule QID NEB INH 12/30/17 12:00 12/31/17 11:15 Potassium Chloride/Sodium Chloride 1,000 ml @ 42 mls/hr [id number] IV 12/30/17 13:30 12/31/17 13:18 12/30/17 17:10 Miscellaneous Information SPECIFIC LAB TO BE DRAWN:VANCOMYCIN TROUGH DATE TO... ONCE ONCE .XX 01/01/18 02:45 01/01/18 02:46 SOCIAL HISTORY: Patient is . Patient is a prior smoker. No alcohol use. No illicit drugs. OBJECTIVE: Vital Signs Date Time Temp Pulse Resp B/P (MAP) Pulse Ox O2 Delivery O2 Flow Rate FiO2 12/31/17 08:25 94 Nasal Cannula 2.00 12/31/17 08:00 77 12/31/17 08:00 98.0 77 18 142/77 (98) 93 12/31/17 04:00 Nasal Cannula 2.00 40 12/31/17 04:00 68 16 145/77 (99) 93 12/31/17 03:00 68 12/31/17 02:00 80 12/31/17 01:00 64 12/31/17 00:00 76 12/31/17 00:00 71 12/30/17 23:00 78 12/30/17 22:00 84 12/30/17 22:00 Nasal Cannula 2.00 40 12/30/17 20:00 95 12/30/17 20:00 84 12/30/17 20:00 98.9 91 18 126/82 (97) 96 12/30/17 19:19 95 Nasal Cannula 2.00 12/30/17 19:00 82 12/30/17 17:00 64 12/30/17 16:00 76 12/30/17 15:09 97.8 66 18 145/72 (96) 95 12/30/17 15:00 78 12/30/17 14:00 74 12/30/17 13:00 68 12/30/17 12:00 66 Laboratory Tests Test 12/30/17 10:25 12/31/17 05:25 White Blood Count 9.8 TH/MM3 3.2 TH/MM3 Red Blood Count 2.83 MIL/MM3 2.79 MIL/MM3 Hemoglobin 7.9 GM/DL 7.7 GM/DL Hematocrit 23.9 % 23.3 % Mean Corpuscular Volume 84.4 FL 83.5 FL Mean Corpuscular Hemoglobin 27.9 PG 27.8 PG Mean Corpuscular Hemoglobin Concent 33.1 % 33.2 % Red Cell Distribution Width 19.6 % 19.5 % Platelet Count 197 TH/MM3 176 TH/MM3 Mean Platelet Volume 8.0 FL 8.1 FL Neutrophils (%) (Auto) 99.2 % Lymphocytes (%) (Auto) 0.7 % Monocytes (%) (Auto) 0.1 % Eosinophils (%) (Auto) 0.0 % Basophils (%) (Auto) 0.0 % Neutrophils # (Auto) 9.7 TH/MM3 Lymphocytes # (Auto) 0.1 TH/MM3 Monocytes # (Auto) 0.0 TH/MM3 Eosinophils # (Auto) 0.0 TH/MM3 Basophils # (Auto) 0.0 TH/MM3 CBC Comment DIFF FINAL AUTO DIFF Differential Comment FINAL DIFF MANUAL Differential Total Cells Counted 100 Neutrophils % (Manual) 95 % Band Neutrophils % 2 % Lymphocytes % 3 % Neutrophils # (Manual) 3.1 TH/MM3 Platelet Estimate NORMAL Platelet Morphology Comment NORMAL Ovalocytes 1+ Laboratory Tests Test 12/30/17 10:25 12/31/17 05:25 Blood Urea Nitrogen 37 MG/DL 36 MG/DL Creatinine 0.79 MG/DL 0.75 MG/DL Random Glucose 206 MG/DL 157 MG/DL Total Protein 4.5 GM/DL 4.6 GM/DL Albumin 1.4 GM/DL 1.5 GM/DL Calcium Level 7.8 MG/DL 7.6 MG/DL Alkaline Phosphatase 84 U/L 79 U/L Aspartate Amino Transf (AST/SGOT) 28 U/L 31 U/L Alanine Aminotransferase (ALT/SGPT) 39 U/L 47 U/L Total Bilirubin 0.4 MG/DL 0.6 MG/DL Sodium Level 147 MEQ/L 150 MEQ/L Potassium Level 3.1 MEQ/L 3.4 MEQ/L Chloride Level 112 MEQ/L 112 MEQ/L Carbon Dioxide Level 27.4 MEQ/L 30.2 MEQ/L Anion Gap 8 MEQ/L 8 MEQ/L Estimat Glomerular Filtration Rate 96 ML/MIN 102 ML/MIN Procalcitonin 0.35 ng/mL Microbiology Date/Time Source Procedure Growth Status 12/28/17 12:15 Fluid Pleural Fluid Fungal Smear - Final NO FUNGAL ELEMENTS SEEN. Resulted 12/28/17 12:15 Fluid Pleural Fluid Fungal Culture Pending Resulted 12/28/17 12:15 Fluid Pleural Fluid Acid Fast Stain - Final NO ACID FAST BACILLI SEEN Resulted 12/28/17 12:15 Fluid Pleural Fluid Mycobacterial Culture Pending Resulted 12/28/17 12:15 Fluid Pleural Fluid Gram Stain - Final Complete 12/28/17 12:15 Fluid Pleural Fluid Body Fluid Culture - Final NO GROWTH IN 72 HRS.--AEROBICALLY OR ... Complete IMAGING: Chest X-Ray 12/30/17 0000 Signed Impressions: Service Date/Time: Saturday, December 30, 2017 11:55 - CONCLUSION: Stable exam consistent with bilateral pleural effusions and/or overlying atelectasis. Radha Polanco MD Chest CT 12/30/17 0000 Signed Impressions: Service Date/Time: Saturday, December 30, 2017 21:13 - CONCLUSION: 1. Free intraperitoneal air in the upper abdomen of uncertain etiology. There is a gastrostomy present. 2. Moderate bilateral pleural effusions with compressive atelectasis. Patchy air space consolidation in the right upper lobe. 3. Moderate anasarca and ascites. 4. Findings called to the floor at the time of dictation. Elbert Carrasquillo MD Chest X-Ray 12/28/17 0000 Signed Impressions: Service Date/Time: Thursday, December 28, 2017 12:37 - CONCLUSION: 1. No pneumothorax is noted. 2. Small left pleural effusion. 3. Mild pulmonary vasculature congestion which is slightly improved compared previous examination. Lee Mijares MD Chest X-Ray 12/27/17 0000 Signed Impressions: Service Date/Time: December 01:54 - CONCLUSION: Worsening infiltrates. Siva Bean Jr., MD Chest Ultrasound 12/27/17 0000 Signed Impressions: Service Date/Time: December 21:39 - CONCLUSION: Large left pleural effusion and would be amenable to thoracentesis. Frandy was made on the overlying skin. Andres Parekh MD Chest Ultrasound 12/27/17 0000 Signed Impressions: Service Date/Time: December 21:35 - CONCLUSION: Large right pleural effusion and is amenable to thoracentesis. Frandy made on the overlying skin. Andres Parekh MD Bone Biopsy CT 12/25/17 1142 Signed Impressions: Service Date/Time: Monday, December 25, 2017 12:32 - CONCLUSION: 1. Uncomplicated CT guided bone marrow aspirate. 2. Uncomplicated CT guided bone marrow biopsy. Lee Mijares MD CT Angiography 12/25/17 0000 Signed Impressions: Service Date/Time: Monday, December 25, 2017 09:26 - CONCLUSION: 1. No CT evidence for pulmonary artery embolism. 2. Moderate to large bilateral pleural effusions with associated compressive atelectasis at the lung bases. 3. 8mm nodule in the right middle lobe. Followup CT examination may be performed at 6 months to document stability if this has not been evaluated previously. 4. Very mildly prominent mediastinal and hilar nodes and partially imaged upper abdominal lymphadenopathy in this patient with history of lymphoma. Miguel Ashton MD Chest X-Ray 12/24/17 0000 Signed Impressions: Service Date/Time: Sunday, December 24, 2017 10:34 - CONCLUSION: 1. Stable bilateral lower lobe air space consolidation and small pleural effusions, right worse than left. Miguel Ashton MD PHYSICAL EXAMINATION: GENERAL: Awake and alert. HEENT: Extraocular movements grossly intact. Pupils reactive to light. No icterus. Oropharynx, dry mucosa no lesions.. No thrush. NECK: Supple without adenopathy or swelling. LUNGS: Bilateral rhonchi. Good air movement. HEART: Regular S1 and S2. No murmurs, rubs or gallops. ABDOMEN: Bowel sounds present, soft, mild tenderness on palpation at the epigastrium. EXTREMITIES: No clubbing or cyanosis, 1+ edema of the lower extremities. SKIN: No rash. NEUROLOGIC: No gross focal finding. PSYCHIATRIC: Calm and cooperative. IMPRESSION: 1. Bibasilar lung infiltrates in patient with cough and immunosuppression secondary to lymphoma. 2. Bilateral pleural effusions. Probably contributing to his dyspnea. Post thoracentesis. Breathing is improved. 3. Lymphoma. Treated with chemotherapy. 4. Leukocytosis likely secondary to lymphoma on admission. White blood cell count now significantly depressed. Patient post chemotherapy. 5. Decreased nutrition in patient with anorexia and now post percutaneous endoscopic gastrostomy placement. 6. Patient now has diarrhea. Possible due to tube feeds Versus antibiotics. Stool C. difficile negative. RECOMMENDATIONS: 1. Continue Zosyn. 2. Continue vancomycin. 3. Monitor temperature and white blood cell count. 4. Sputum culture if he is able to cough up a specimen. I have ordered a sputum culture. Still not able to give a sputum specimen. 5. Monitor pleural fluid culture. Discussed with patient's and patient. Lenin Salomon MD Dec 31, 2017 11:56
--- NOTE | 2017-12-31 12:39 | PD.ONC.PN ---
Subjective Subjective Remarks Afebrile overnight Pt reports he had a difficult time sleeping last night Breathing okay after his thoracentesis on Sunday Patient's at the bedside asking questions about knowing if chemo was working or not Objective Data Date Time Temp Pulse Resp B/P (MAP) Pulse Ox O2 Delivery O2 Flow Rate FiO2 12/31/17 08:25 94 Nasal Cannula 2.00 12/31/17 08:00 77 12/31/17 08:00 98.0 77 18 142/77 (98) 93 12/31/17 04:00 Nasal Cannula 2.00 40 12/31/17 04:00 68 16 145/77 (99) 93 12/31/17 03:00 68 12/31/17 02:00 80 12/31/17 01:00 64 12/31/17 00:00 76 12/31/17 00:00 71 12/30/17 23:00 78 12/30/17 22:00 84 12/30/17 22:00 Nasal Cannula 2.00 40 12/30/17 20:00 95 12/30/17 20:00 84 12/30/17 20:00 98.9 91 18 126/82 (97) 96 12/30/17 19:19 95 Nasal Cannula 2.00 12/30/17 19:00 82 12/30/17 17:00 64 12/30/17 16:00 76 12/30/17 15:09 97.8 66 18 145/72 (96) 95 12/30/17 15:00 78 12/30/17 14:00 74 12/30/17 13:00 68 12/31/17 12/31/17 12/31/17 07:00 15:00 23:00 Intake Total 1790 ml Output Total 575 ml Balance 1215 ml Result Diagram: 12/31/17 0525 12/31/17 0525 Laboratory Results Laboratory Tests Test 12/31/17 05:25 White Blood Count 3.2 TH/MM3 Red Blood Count 2.79 MIL/MM3 Hemoglobin 7.7 GM/DL Hematocrit 23.3 % Mean Corpuscular Volume 83.5 FL Mean Corpuscular Hemoglobin 27.8 PG Mean Corpuscular Hemoglobin Concent 33.2 % Red Cell Distribution Width 19.5 % Platelet Count 176 TH/MM3 Mean Platelet Volume 8.1 FL CBC Comment AUTO DIFF Differential Total Cells Counted 100 Neutrophils % (Manual) 95 % Band Neutrophils % 2 % Lymphocytes % 3 % Neutrophils # (Manual) 3.1 TH/MM3 Differential Comment FINAL DIFF MANUAL Platelet Estimate NORMAL Platelet Morphology Comment NORMAL Ovalocytes 1+ Blood Urea Nitrogen 36 MG/DL Creatinine 0.75 MG/DL Random Glucose 157 MG/DL Total Protein 4.6 GM/DL Albumin 1.5 GM/DL Calcium Level 7.6 MG/DL Alkaline Phosphatase 79 U/L Aspartate Amino Transf (AST/SGOT) 31 U/L Alanine Aminotransferase (ALT/SGPT) 47 U/L Total Bilirubin 0.6 MG/DL Sodium Level 150 MEQ/L Potassium Level 3.4 MEQ/L Chloride Level 112 MEQ/L Carbon Dioxide Level 30.2 MEQ/L Anion Gap 8 MEQ/L Estimat Glomerular Filtration Rate 102 ML/MIN Administered Medications Medications (Trade) Dose Ordered Sig/Candace Route PRN Reason Start Time Stop Time Status Last Admin Dose Admin Sodium Chloride (NS Flush) 2 ml BID IV FLUSH 12/22/17 21:00 12/31/17 08:33 Senna/Docusate Sodium (Mary Kay-Colace) 1 tab BID PO 12/22/17 21:00 12/31/17 08:32 Albuterol/ Ipratropium (Duoneb Neb) 1 ampule Q4HR NEB PRN NEB SOB/WHEEZING 12/22/17 20:15 12/29/17 07:51 Zolpidem Tartrate (Ambien) 5 mg HS PRN PO INSOMNIA 12/22/17 20:15 12/26/17 20:30 Pantoprazole Sodium (Protonix) 40 mg Q12HR PO 12/22/17 21:00 12/31/17 08:33 Metoprolol Tartrate (Lopressor) 50 mg Q12HR PO 12/22/17 21:00 12/31/17 08:33 Megestrol Acetate (Megace Liq) 800 mg DAILY PO 12/23/17 09:00 12/31/17 08:32 Budesonide/ Formoterol Fumarate (Symbicort 160-4.5 Mcg Inh) 1 puff Q12HR INH 12/22/17 21:00 12/31/17 08:37 Aspirin (Ecotrin Ec) 81 mg DAILY PO 12/23/17 09:00 12/31/17 08:33 Atorvastatin Calcium (Lipitor) 80 mg DAILY PO 12/23/17 09:00 12/31/17 08:32 Multivitamins (Theragran) 1 tab DAILY PO 12/23/17 09:00 12/31/17 08:36 Heparin Sodium (Porcine) (Heparin Central Flush) 250 units UNSCH PRN IV FLUSH SEE PROTOCOL 12/22/17 20:30 12/27/17 20:27 Insulin Aspart (NovoLOG SUPPLEMENTAL SCALE) 1 ACHS SLIDING SCALE SQ 12/22/17 21:00 12/31/17 08:35 Guaifenesin/ Dextromethorphan (Robitussin Dm 200-20 Mg/10 ml Liq) 10 ml Q4H PRN PO cough interfering with rest 12/22/17 21:00 12/26/17 18:27 Guaifenesin (Mucinex Er) 600 mg BID PO 12/23/17 21:00 12/31/17 08:33 Allopurinol (Zyloprim) 300 mg DAILY PO 12/26/17 09:00 12/31/17 08:32 Acetaminophen (Tylenol) 650 mg Q4H PRN PO FEVER>[id number] 12/26/17 14:45 12/26/17 20:32 Methylprednisolone Sodium Succinate (SoluMEDROL INJ) 40 mg Q6HR IV PUSH 12/27/17 12:00 12/31/17 05:28 Piperacillin Sod/ Tazobactam Sod 100 ml @ 200 mls/hr Q6H IV 12/27/17 14:00 12/31/17 08:31 Vancomycin HCl 1500 mg/Sodium Chloride 515 ml @ 250 mls/hr Q12H IV 12/27/17 15:00 12/31/17 02:40 Morphine Sulfate (Morphine Inj) 2 mg Q2HR PRN IV PUSH pain3-5 12/27/17 15:30 12/30/17 02:37 Morphine Sulfate (Morphine Inj) 4 mg Q2HR PRN IV PUSH PAIN SCALE 6 TO 8 12/27/17 15:45 12/29/17 03:43 Acetylcysteine (Mucomyst 10% Neb) 2 ml TID NEB NEB 12/29/17 14:00 12/31/17 11:15 Albuterol/ Ipratropium (Duoneb Neb) 1 ampule QID NEB INH 12/30/17 12:00 12/31/17 11:15 Potassium Chloride/Sodium Chloride 1,000 ml @ 42 mls/hr [id number] IV 12/30/17 13:30 12/31/17 13:18 12/30/17 17:10 Objective Remarks GENERAL: Elderly male resting in bed asleep on approach. He appears weak and debilitated. SKIN: Warm and dry. HEAD: Normocephalic. EYES: No injection or drainage. NECK: Supple, trachea midline. CARDIOVASCULAR: +S1/S2 RESPIRATORY: Scattered rhonchi anteriorly. GASTROINTESTINAL: Abdomen soft, non-tender, nondistended. EXTREMITIES: No cyanosis. No edema NEUROLOGICAL: Patient lethargic but awakens easily. 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 difficile negative. Bone marrow biopsy shows no lymphoma involvement. Cytology from thoracentesis pending. Transfuse 1 unit PRBC for symptomatic with hgb 7.7. Patient would benefit from inpatient rehab for strengthening 12/28: continue solu-medrol. await thoracentesis. consult OT. 12/27: start Solu-medrol 40mg IV q 6. consult pulmonology for worsening infiltrates, pleural effusions. monitor CBC, counts dropping. 12/26: CT chest shows Bilateral Pl effusion. Continue aggressive diuresis. Had CHOP C1D1 yesterday. Tolerated well. Next chemo in 3 weeks as outpt. Continue allopurinol and prednisone. 12/25: CTA shows no PE. +LAD, PE. dyspnea likely d/t lymphoma. will give Solu- medrol 1g IV and start CHOP today. Anaplastic large cell, non-Hodgkin's lymphoma, at least stage III. --unclear whether he has any B symptoms, but this could be most likely given that he has significant weight loss, which is one of the symptoms of lymphoma. --Leukocytosis, anemia and neutrophilia, most likely due to bone marrow involvement by the lymphoma until proven otherwise. (2) Malnutrition ICD Codes: E46 - Unspecified protein-calorie malnutrition Plan: --tolerating Jevity 1.5 @ 60cc/hr --s/p PEG tube placement (3) Respiratory insufficiency ICD Codes: R06.89 - Other abnormalities of breathing Plan: --CTA showed no PE. --d/t pleural effusions, going for thoracentesis, 12/28 --s/p CHOP chemotherapy and Solu-medrol 1G IV --now on solu-medrol 40mg IV q 6 hours + PRN Duonebs. --pulmonology following, appreciate recommendations (4) Decubitus skin ulcer ICD Codes: L89.90 - Pressure ulcer of unspecified site, unspecified stage Plan: --wound care following. --has specialty air mattress Assessment 72y/o male with newly diagnosed anaplastic large cell NHL. h/o COPD, hypercholesterolemia, hypertension, history of previous stroke. HPI: started 8 weeks ago with a cough mixed with greenish phlegm and shortness of breath. CT cap showed diffuse lymphadenopathy on both sides of the diaphragm. PET scan showed increased uptake in the lymph nodes involving the neck, chest, mediastinal and hilar area, retroperitoneum and pelvic lymph nodes. biopsy of the left neck mass=anaplastic large cell NHL echocardiogram, LVEF=55-70%. MUGA scan, showed EF of 60%. Plan Attending Statement The exam, history, and the medical decision-making described in the above note were completed with the assistance of the mid-level provider. I reviewed and agree with the findings presented. I attest that I had a [id number]-jk-duxy encounter with the patient on the same day, and personally performed and documented my assessment and findings in the medical record. Patient is complaining of shortness of breath and dyspnea on exertion Status post thoracentesis Repeated CT of the chest shows moderate bilateral pleural effusion. d/w patients is at bedside. Patient will need to be discharged to rehab For physical therapy Problem Qualifiers (1) Malnutrition: Qualified Codes: E46 - Unspecified protein-calorie malnutrition Tawanna Hugo Dec 31, 2017 12:39 Josy Suarez MD Dec 31, 2017 21:58
--- NOTE | 2017-12-31 13:00 | HHI.PR ---
Subjective Remarks He is on O2 [address] chest shows bilateral effusions. On antibiotics. Objective Vital Signs Date Time Temp Pulse Resp B/P (MAP) Pulse Ox O2 Delivery O2 Flow Rate FiO2 12/31/17 08:25 94 Nasal Cannula 2.00 12/31/17 08:00 77 12/31/17 08:00 98.0 77 18 142/77 (98) 93 12/31/17 04:00 Nasal Cannula 2.00 40 12/31/17 04:00 68 16 145/77 (99) 93 12/31/17 03:00 68 12/31/17 02:00 80 12/31/17 01:00 64 12/31/17 00:00 76 12/31/17 00:00 71 12/30/17 23:00 78 12/30/17 22:00 84 12/30/17 22:00 Nasal Cannula 2.00 40 12/30/17 20:00 95 12/30/17 20:00 84 12/30/17 20:00 98.9 91 18 126/82 (97) 96 12/30/17 19:19 95 Nasal Cannula 2.00 12/30/17 19:00 82 12/30/17 17:00 64 12/30/17 16:00 76 12/30/17 15:09 97.8 66 18 145/72 (96) 95 12/30/17 15:00 78 12/30/17 14:00 74 12/30/17 13:00 68 I/O 12/30/17 12/30/17 12/30/17 12/31/17 12/31/17 12/31/17 07:00 15:00 23:00 07:00 15:00 23:00 Intake Total 1394 ml 200 ml 1115 ml 1790 ml Output Total 450 ml 750 ml 575 ml Balance 944 ml 200 ml 365 ml 1215 ml Intake Oral 480 ml 600 ml 120 ml IV Total 200 ml 515 ml 950 ml Tube Feeding 514 ml 720 ml Other 400 ml Output Urine Total 450 ml 750 ml 575 ml Gastric Drainage Total 0 ml # Voids 1 3 # Bowel Movements 1 2 2 Result Diagram: 12/31/17 0525 12/31/17 0525 Procedures PEG tube placement. Bone Marrow Biopsy 12/25/17 Objective Remarks General appearance: This elderly white male is averagely built, no acute distress. HEENT: Head normocephalic. Pupils reactive. Sclerae were injected. Ears: No inflammation. Throat was clear. Neck: No bruits or thyroid enlargement or lymphadenopathy. Chest: Distant breath sounds with expiratory wheezes in the upper chest and a few crackles at both lung bases. Cardiovascular: The heart sounds are regular, S1 and S2. No murmur. No S3. Abdomen: Is soft, benign. No masses. Extremities: 1 + edema with normal reflexes. There are no gross motor deficits. Cranial nerves grossly intact. Rectal examination: Is deferred. Assessment and Plan Assessment and Plan IMPRESSION: 1. Bibasilar pleural effusions with atelectasis. 2. History of hypertension. 3. Hyperlipidemia. 4. COPD, emphysema. 5. History of Anaplastic NHL . Plan : 1. Cont Antibiotics per ID 2 O2 at 2L. 3. Chest X Ray in 2 days. 4. Nebs qid , duoneb. 5. Continue solumedrol 40 mg IV Q8H 6. CBC,BMP 7. IS at bedside q3h 8. Mucomyst 10 % , 2 CC TID Katiuska Blevins MD Dec 31, 2017 13:00
[2017-12-31] MEDS: ONDANSETRON HCL 4 MG/2 ML VIAL IVP PRN ×2 (14:15→21:43)
[2017-12-31] MEDS ORDERED: SODIUM CHLOR 0.9% 250 ML INJ 250 ML IV ONE (16:00)
[2017-12-31] MEDS ORDERED: ACETAMINOPHEN 325 MG TAB PO PRN (16:30)
[2017-12-31] MEDS ORDERED: FUROSEMIDE 20 MG/2 ML VIAL IV PUSH ONE (16:30)
[2017-12-31] MEDS ORDERED: diphenhydrAMINE HCL 25 MG CAP PO PRN (16:30)
--- NOTE | 2017-12-31 17:48 | PD.WCN.NOT ---
Wound Consult Description: Wound reconsult received from Tawanna Hugo [facility] for pressure ulcer to buttocks Communicated with: ANDREAS Garcia [facility]/ oncology Recommendation: 1) Reposition patient every 2 hours for comfort and offloading 2) Cleanse sacral/buttocks area with normal saline pat dry.Apply Calazime 2mm thick to reddened area BID. 3) Please do not place any foam dressings/briefs or cotton underpads on patient. 4) Please use ultrasorb pad for incontinence management. 5) Reconsult wound care if wound worsens. Additional Information: Patient seen for reconsult of pressure ulcer to buttock area on [facility]/oncology. Patinet is laying on jared bed with attached alternating pressure pump. Additionally patient is laying on staggered thick cloth pad and ultrasorb pad, with briefs on.Patient turned with the assistance of Sabrina JOHNS [facility]/ oncology to R side. Briefs were removed to reveal sacral adhesive foam dressing in place to buttock and sacral area. Removed dressing to reveal peeling denuded skin with partial thickness skin loss to bilateral buttocks and gluteal cleft. Denuded erythematous skin is blanchable. Jagged partial thickness skin loss is not pressure related. Presents like incontinence associated dermatitis, with friction associated partial thickness skin loss. Findings are the same as previously noted on 12/26/2017. Please follow recommendations noted above. Linh Vega [facility] Dec 31, 2017 17:48
[2017-12-31] MEDS: CALCIUM CARBONATE 500 MG CHEWABLE TAB CHEW PRN (18:05)
[2017-12-31] MEDS: MORPHINE SULFATE 2 MG/ML SYRINGE IV PUSH PRN (21:18)
[2018-01-01] VITALS (31 sets, daily range): BP systolic 64–156; BP diastolic 43–96; PULSE 74–111; RESP 16–18; TEMP 97.5–98.6; O2SAT 86–100
[2018-01-01] MEDS: PIPERACIL-TAZO 4.5 GM PREMIX 100 ML IV SCH ×3 (02:21→12:25)
[2018-01-01] MEDS ORDERED: PHARMACY ORDERED LAB ONE (02:45)
[2018-01-01] MEDS: methylPREDNISolone SOD SUCC 40 MG/1 ML VIAL IV PUSH SCH (05:27)
[2018-01-01] MEDS: CALCIUM CARBONATE 500 MG CHEWABLE TAB CHEW PRN (05:27)
[2018-01-01] MEDS: VANCOMYCIN INJ 1,500 MG in SODIUM CHLORID 0.9% 500 ML INJ 500 ML IV SCH ×2 (05:28→17:45)
[2018-01-01 06:20] LABS: AUTOMATED NEUTROPHIL # 0.4 TH/MM3 (1.8-7.7); EOSINOPHIL % 0.1 % (0.0-4.0); HEMATOCRIT 28.2 % (39.0-51.0); HEMOGLOBIN 9.5 GM/DL (13.0-17.0); LYMPH % 9.8 % (9.0-44.0); MEAN CELL VOLUME 82.9 FL (80.0-100.0); MEAN CORPUSCULAR HGB CONC 33.8 % (32.0-36.0); MEAN PLATELET VOLUME 8.3 FL (7.0-11.0); MONO % 0.3 % (0.0-8.0); NEUT % 89.8 % (16.0-70.0); PLATELET COUNT 137 TH/MM3 (150-450); RED CELL DISTRIBUTION WIDTH 18.9 % (11.6-17.2); WHITE BLOOD COUNT 0.5 TH/MM3 (4.0-11.0)
[2018-01-01 07:08] LABS: ALBUMIN 1.6 GM/DL (3.4-5.0); ALKALINE PHOSPHATASE 80 U/L (45-117); ALT (GPT) 56 U/L (12-78); AST (GOT) 36 U/L (15-37); BICARBONATE 28.1 MEQ/L (21.0-32.0); BLOOD UREA NITROGEN 36 MG/DL (7-18); CALCIUM 7.8 MG/DL (8.5-10.1); CHLORIDE 112 MEQ/L (98-107); CREATININE 0.82 MG/DL (0.60-1.30); GLOMERULAR FILTRATION RATE 92 ML/MIN (>89); GLUCOSE,RANDOM 168 MG/DL (74-106); MAGNESIUM 2.3 MG/DL (1.5-2.5); SODIUM (NA) 149 MEQ/L (136-145); TOTAL BILIRUBIN ADULT 0.8 MG/DL (0.2-1.0); TOTAL PROTEIN 4.8 GM/DL (6.4-8.2)
[2018-01-01 07:50] LABS: BANDS 2 % (0-6); LYMPHOCYTES 4 % (9-44); NEUTROPHIL # MANUAL DIFF 0.5 TH/MM3 (1.8-7.7); POLYS (SEG NEUTROPHILS) 94 % (16-70)
[2018-01-01] MEDS: RESP: ACETYLCYSTEINE 10% 30 ML NEB NEB SCH ×2 (07:52→11:23)
[2018-01-01] MEDS: RESP: ALBUTEROL 2.5 MG/IPRATROPIUM 0.5 MG NEB (SCH) INH ×3 (07:52→16:12)
[2018-01-01] MEDS: INSULIN ASPART SUPPLEMENTAL SCALE SQ SCH ×4 (08:00→21:00)
[2018-01-01] MEDS: DOCUSATE SODIUM 50 MG/SENNA 8.6 MG TAB PO SCH ×2 (08:47→21:20)
[2018-01-01] MEDS: ASPIRIN EC 81 MG TABEC PO SCH (08:52)
[2018-01-01] MEDS: MULTIVITAMIN TAB PO SCH (08:52)
[2018-01-01] MEDS: METOPROLOL TARTRATE 50 MG TAB PO SCH (08:52)
[2018-01-01] MEDS: PANTOPRAZOLE SOD 40 MG DELAYED RELEASE TAB PO SCH ×2 (08:52→21:00)
[2018-01-01] MEDS: ATORVASTATIN 80 MG TAB PO SCH (08:52)
[2018-01-01] MEDS: SODIUM CHLORIDE 0.9% FLUSH 10 ML FLUSH IV FLUSH SCH ×2 (08:52→21:00)
[2018-01-01] MEDS: MEGESTROL ACETATE SUSP 400 MG/10 ML CUP PO SCH (08:52)
[2018-01-01] MEDS: guaiFENesin E.R. 600 MG TAB PO SCH ×2 (08:52→21:00)
[2018-01-01] MEDS: ALLOPURINOL 300 MG TAB PO SCH (08:52)
[2018-01-01] MEDS: BUDESONIDE-FORMOTEROL 160/4.5 MCG INHALER INH SCH ×2 (08:53→21:00)
[2018-01-01] MEDS ORDERED: methylPREDNISolone SOD SUCC 40 MG/1 ML VIAL IV PUSH SCH (09:00)
--- NOTE | 2018-01-01 09:28 | RADRPT ---
EXAM DATE/TIME: 01/01/2018 09:12 [place] COMPARISON: CT THORAX W/O CONTRAST, December 30, 2017, 21:13. CHEST SINGLE AP, December 30, 2017, 11:55. INDICATIONS : Effusions MEDICAL HISTORY : Cardiovascular disease. Cerebrovascular disease. Hypertension. lymphoma, COPD SURGICAL HISTORY : port for chemotherapy ENCOUNTER: Initial ACUITY: 1 week PAIN SCORE: 0/10 LOCATION: Bilateral chest FINDINGS: The Oblkvj-e-Ysnu in good position. The heart is normal in size. The mediastinal contours within normal limits. There minimal bibasilar e ffusions. There is diffuse interstitial prominence. These changes are stable compared to previous rory ed 12/30/17. The visualized bony structures demonstrate degenerative changes but are otherwise intact. CONCLUSION: 1. Bilateral pleural effusions unchanged from previous exam. 2. Rzmgxh-z-Uyze in good position. 3. Diffuse interstitial prominence probably chronic in etiology. This is unchanged from prior as well . Timothy Carrero MD on January 01, 2018 at 9:23 Board Certified Radiologist. This report was verified electronically.
[2018-01-01] MEDS: ONDANSETRON HCL 4 MG/2 ML VIAL IVP PRN (10:02)
[2018-01-01] MEDS: RESP: ALBUTEROL 2.5 MG/IPRATROPIUM 0.5 MG NEB (PRN) NEB (10:08)
[2018-01-01] MEDS ORDERED: FUROSEMIDE 20 MG/2 ML VIAL IV PUSH ONE (10:30)
[2018-01-01] MEDS ORDERED: POTASSIUM CHLORIDE 20 MEQ CONTROLLED RELEASE TAB PO ONE (10:30)
--- NOTE | 2018-01-01 10:39 | HHI.PR ---
Subjective Remarks Follow-up anaplastic NHL/bilateral pleural effusion/pulmonary infiltrate/ respiratory failure 12/29/17-patient seen and examined, no significant shortness of breath, decreased appetite, currently afebrile 12/30/17-patient seen and examined, had diarrhea episodes overnight until this morning. Not much of an appetite. Afebrile. by the bedside. 12/31/17-patient seen and examined; still with episode of diarrhea otherwise stable. C. difficile PCR negative 01/01/18-patient seen and examined, appears short of breath and complaints of discomfort. Tube feed has been held this morning secondary to increase output. Transfused 1 packed unit red blood cell yesterday Objective Vitals Vital Signs Date Time Temp Pulse Resp B/P (MAP) Pulse Ox O2 Delivery O2 Flow Rate FiO2 01/01/18 07:52 97 Nasal Cannula 2.00 01/01/18 05:25 79 18 133/77 (95) 94 01/01/18 04:00 91 01/01/18 00:05 97.8 80 16 119/67 (84) 93 01/01/18 00:00 111 12/31/17 22:23 97.5 71 16 116/78 12/31/17 21:00 96 Nasal Cannula 2.00 12/31/17 21:00 97.5 71 16 116/78 (91) 96 12/31/17 21:00 82 12/31/17 20:29 98 Nasal Cannula 2.00 12/31/17 17:00 82 12/31/17 16:00 68 12/31/17 15:54 97.7 65 20 140/86 (104) 95 12/31/17 14:00 72 12/31/17 13:00 68 12/31/17 12:00 72 12/31/17 12:00 97.9 80 20 129/77 (94) 94 12/31/17 11:00 68 I/O 12/31/17 12/31/17 12/31/17 01/01/18 01/01/18 01/01/18 07:00 15:00 23:00 07:00 15:00 23:00 Intake Total 1790 ml 600 ml 1270 ml Output Total 575 ml 600 ml 800.0 ml Balance 1215 ml 0 ml 470.0 ml Intake Oral 120 ml 240 ml IV Total 950 ml 600 ml 100 ml Tube Feeding 720 ml 340 ml Packed Cells 350 ml Other 240 ml Output Urine Total 575 ml 600 ml 700 ml Gastric Drainage Total 0 ml Tube Feeding Residual Discard 100.0 ml # Bowel Movements 2 4 Result Diagram: 01/01/18 0530 01/01/18 0530 Imaging Last Impressions Chest X-Ray 01/01/18 0600 Signed Impressions: Service Date/Time: Monday, January 01, 2018 09:12 - CONCLUSION: 1. Bilateral pleural effusions unchanged from previous exam. 2. Szbpqf-s-Ddjq in good position. 3. Diffuse interstitial prominence probably chronic in etiology. This is unchanged from prior as well. Timothy Carrero MD Chest CT 12/30/17 0000 Signed Impressions: Service Date/Time: Saturday, December 30, 2017 21:13 - CONCLUSION: 1. Free intraperitoneal air in the upper abdomen of uncertain etiology. There is a gastrostomy present. 2. Moderate bilateral pleural effusions with compressive atelectasis. Patchy air space consolidation in the right upper lobe. 3. Moderate anasarca and ascites. 4. Findings called to the floor at the time of dictation. Elbert Carrasquillo MD Chest Ultrasound 12/27/17 0000 Signed Impressions: Service Date/Time: December 21:39 - CONCLUSION: Large left pleural effusion and would be amenable to thoracentesis. Frandy was made on the overlying skin. Andres Parekh MD Bone Biopsy CT 12/25/17 1142 Signed Impressions: Service Date/Time: Monday, December 25, 2017 12:32 - CONCLUSION: 1. Uncomplicated CT guided bone marrow aspirate. 2. Uncomplicated CT guided bone marrow biopsy. Lee Mijares MD CT Angiography 12/25/17 0000 Signed Impressions: Service Date/Time: Monday, December 25, 2017 09:26 - CONCLUSION: 1. No CT evidence for pulmonary artery embolism. 2. Moderate to large bilateral pleural effusions with associated compressive atelectasis at the lung bases. 3. 8mm nodule in the right middle lobe. Followup CT examination may be performed at 6 months to document stability if this has not been evaluated previously. 4. Very mildly prominent mediastinal and hilar nodes and partially imaged upper abdominal lymphadenopathy in this patient with history of lymphoma. Miguel Ashton MD Objective Remarks GENERAL: in mild distress SKIN: Warm and dry. HEAD: Normocephalic. EYES: No scleral icterus. No injection or drainage. NECK: Supple, trachea midline. No JVD or lymphadenopathy. CARDIOVASCULAR: Regular rate and rhythm without murmurs, gallops, or rubs. RESPIRATORY: Breath sounds decrease bilaterally. No accessory muscle use. GASTROINTESTINAL: Abdomen soft, non-tender, nondistended. PEG tube in place MUSCULOSKELETAL: No cyanosis, or edema. BACK: Nontender without obvious deformity. No CVA tenderness. 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 - Anaplastic large cell lymphoma, ALK-negative, unspecified site (2) COPD (chronic obstructive pulmonary disease) ICD Code: J44.9 - Chronic obstructive pulmonary disease, unspecified Status: Chronic (3) Hypertension ICD Code: I10 - Essential (primary) hypertension Status: Chronic (4) Hyperlipidemia ICD Code: E78.5 - Hyperlipidemia, unspecified Status: Chronic Assessment and Plan 72-year-old man with Anaplastic large cell lymphoma ALK negative Management per oncology Continue current pain management Transfused 1unit PRBC Failure to thrive Calorie count Tube feed on hold COPD - Supplemental oxygen as needed - Continue Proventil inhalers - Bronchodilator, Mucolytic and incentive spirometry. - Continue Solu Medrol Diarrhea C. difficile PCR negative Continue antidiarrhea motility agents Pulmonary infiltrates Continue with Zosyn and vancomycin Appreciate input from ID Bilateral Pleural effusions Status post thoracentesis 12/28/17 Management per pulmonary medicine Repeat CXR this AM 01/01 unchanged Respiratory distress CXR noted Give Lasix 20mg IV x 1 now Check BNP and treat accordingly Anxiety - Continue lorazepam 1 mg by mouth every 8 hours when necessary for moderate to severe anxiety Hyperlipidemia - Continue home atorvastatin 80 mg by mouth daily Hypertension - Continue metoprolol 50 mg by mouth every 12 hours Steroid-induced hyperglycemia - continue Accu-Cheks before meals and at bedtime with low-dose NovoLog sliding scale coverage - Monitor trends and blood glucose levels and adjust treatments accordingly Hx of NSVT at [facility] per record review - continuous cardiac telemetry to monitor for dysrhythmia - patient will need stress test as an outpatient at some point in time - nuclear med MUGA scan showed EF 81% at [facility] - as per Cardiology sinus rhythm with arrhythmia, not recommended anticoagulation at this time. Hypokalemia : Give K 80meQ x 1 now DVT prophylaxis - SCDs Kaveh Patel MD Jan 01, 2018 10:39
--- NOTE | 2018-01-01 12:50 | HHI.PR ---
Subjective Remarks He is on O2 2 L. Breathing OK . Weak and Neutropenic Xray chest shows small bilateral effusions. On antibiotics. Objective Vital Signs Date Time Temp Pulse Resp B/P (MAP) Pulse Ox O2 Delivery O2 Flow Rate FiO2 01/01/18 11:30 97.5 100 18 128/78 (95) 95 01/01/18 08:00 98.6 98 18 110/77 (88) 95 01/01/18 07:52 97 Nasal Cannula 2.00 01/01/18 05:25 79 18 133/77 (95) 94 01/01/18 04:00 91 01/01/18 00:05 97.8 80 16 119/67 (84) 93 01/01/18 00:00 111 12/31/17 22:23 97.5 71 16 116/78 12/31/17 21:00 96 Nasal Cannula 2.00 12/31/17 21:00 97.5 71 16 116/78 (91) 96 12/31/17 21:00 82 12/31/17 20:29 98 Nasal Cannula 2.00 12/31/17 17:00 82 12/31/17 16:00 68 12/31/17 15:54 97.7 65 20 140/86 (104) 95 12/31/17 14:00 72 12/31/17 13:00 68 I/O 12/31/17 12/31/17 12/31/17 01/01/18 01/01/18 01/01/18 07:00 15:00 23:00 07:00 15:00 23:00 Intake Total 1790 ml 600 ml 1270 ml Output Total 575 ml 600 ml 800.0 ml Balance 1215 ml 0 ml 470.0 ml Intake Oral 120 ml 240 ml IV Total 950 ml 600 ml 100 ml Tube Feeding 720 ml 340 ml Packed Cells 350 ml Other 240 ml Output Urine Total 575 ml 600 ml 700 ml Gastric Drainage Total 0 ml Tube Feeding Residual Discard 100.0 ml # Bowel Movements 2 4 Result Diagram: 01/01/18 0530 01/01/18 0530 Procedures PEG tube placement. Bone Marrow Biopsy 12/25/17 Objective Remarks General appearance: This elderly white male is averagely built, no acute distress. HEENT: Head normocephalic. Pupils reactive. Sclerae were clear Ears: No inflammation. Throat was clear. Neck: No bruits or thyroid enlargement or lymphadenopathy. Chest: Distant breath sounds with expiratory wheezes in the upper chest and a few crackles at both lung bases. Cardiovascular: The heart sounds are regular, S1 and S2. No murmur. No S3. Abdomen: Is soft, benign. No masses. Extremities: 1 + edema with normal reflexes. There are no gross motor deficits. Cranial nerves grossly intact. Rectal examination: Is deferred. Assessment and Plan Assessment and Plan IMPRESSION: 1. Bibasilar pleural effusions with atelectasis. 2. History of hypertension. 3. Hyperlipidemia. 4. COPD, emphysema. 5. History of Anaplastic NHL . Plan : 1. Cont Antibiotics per ID 2 O2 at 2L.PRN 3. Prednisone 10 mg bid 4. Nebs qid , duoneb. 5. D/C solumedrol 6. CBC,BMP 7. IS at bedside q3h 8. Mucomyst 10 % , 2 CC TID X 3 days Katiuska Blevins MD Jan 01, 2018 12:50
--- NOTE | 2018-01-01 14:33 | HHI.IDPN ---
Note Infectious Disease Note Patient says he feels better. No change in cough. Not able to cough up a sputum sample. Awake and alert alert. Denies chills, shortness of breath, nausea, vomiting, abdominal pain. Afebrile. White blood cell count has decreased significantly. ANC less than 500. CT scan of the chest showed patchy airspace consolidation in the right upper lobe 72-year-old white male who was diagnosed with lymphoma. The patient was noted to have become ill 2 months ago. He was noted to have cough and he was given 3 rounds of oral antibiotics without improvement of the cough. Subsequent workup revealed mediastinal adenopathy and other areas of adenopathy, and a biopsy of the lesion of the neck came back showing lymphoma. During his stay at [facility], he had no fever. He was given antibiotics. An Infusaport was placed on 12/20 for anticipated chemotherapy. PAST MEDICAL HISTORY: Stage IIIB anaplastic large cell lymphoma, COPD, hypertension, hyperlipidemia, history of CVA without residual deficits, nonsustained V-tach at [facility], neuropathy of the lower extremities, back surgery, Infusaport placement on 12/20/2017. ALLERGIES: HYDROCODONE. MEDICATIONS: SOCIAL HISTORY: Patient is . Patient is a prior smoker. No alcohol use. No illicit drugs. OBJECTIVE: Vital Signs Date Time Temp Pulse Resp B/P (MAP) Pulse Ox O2 Delivery O2 Flow Rate FiO2 01/01/18 14:14 95 01/01/18 11:30 97.5 100 18 128/78 (95) 95 01/01/18 08:00 98.6 98 18 110/77 (88) 95 01/01/18 07:52 97 Nasal Cannula 2.00 01/01/18 07:15 Nasal Cannula 2.00 01/01/18 05:25 79 18 133/77 (95) 94 01/01/18 04:00 91 01/01/18 00:05 97.8 80 16 119/67 (84) 93 01/01/18 00:00 111 12/31/17 22:23 97.5 71 16 116/78 12/31/17 21:00 96 Nasal Cannula 2.00 12/31/17 21:00 97.5 71 16 116/78 (91) 96 12/31/17 21:00 82 12/31/17 20:29 98 Nasal Cannula 2.00 12/31/17 17:00 82 12/31/17 16:00 68 12/31/17 15:54 97.7 65 20 140/86 (104) 95 Laboratory Tests Test 12/31/17 05:25 01/01/18 05:30 White Blood Count 3.2 TH/MM3 0.5 TH/MM3 Red Blood Count 2.79 MIL/MM3 3.40 MIL/MM3 Hemoglobin 7.7 GM/DL 9.5 GM/DL Hematocrit 23.3 % 28.2 % Mean Corpuscular Volume 83.5 FL 82.9 FL Mean Corpuscular Hemoglobin 27.8 PG 28.0 PG Mean Corpuscular Hemoglobin Concent 33.2 % 33.8 % Red Cell Distribution Width 19.5 % 18.9 % Platelet Count 176 TH/MM3 137 TH/MM3 Mean Platelet Volume 8.1 FL 8.3 FL CBC Comment AUTO DIFF AUTO DIFF Differential Total Cells Counted 100 50 Neutrophils % (Manual) 95 % 94 % Band Neutrophils % 2 % 2 % Lymphocytes % 3 % 4 % Neutrophils # (Manual) 3.1 TH/MM3 0.5 TH/MM3 Differential Comment FINAL DIFF MANUAL FINAL DIFF MANUAL Platelet Estimate NORMAL LOW Platelet Morphology Comment NORMAL NORMAL Ovalocytes 1+ Neutrophils (%) (Auto) 89.8 % Lymphocytes (%) (Auto) 9.8 % Monocytes (%) (Auto) 0.3 % Eosinophils (%) (Auto) 0.1 % Basophils (%) (Auto) 0.0 % Neutrophils # (Auto) 0.4 TH/MM3 Lymphocytes # (Auto) 0.0 TH/MM3 Monocytes # (Auto) 0.0 TH/MM3 Eosinophils # (Auto) 0.0 TH/MM3 Basophils # (Auto) 0.0 TH/MM3 Red Cell Morphology Comment NORMAL Laboratory Tests Test 12/31/17 05:25 01/01/18 05:30 Blood Urea Nitrogen 36 MG/DL 36 MG/DL Creatinine 0.75 MG/DL 0.82 MG/DL Random Glucose 157 MG/DL 168 MG/DL Total Protein 4.6 GM/DL 4.8 GM/DL Albumin 1.5 GM/DL 1.6 GM/DL Calcium Level 7.6 MG/DL 7.8 MG/DL Alkaline Phosphatase 79 U/L 80 U/L Aspartate Amino Transf (AST/SGOT) 31 U/L 36 U/L Alanine Aminotransferase (ALT/SGPT) 47 U/L 56 U/L Total Bilirubin 0.6 MG/DL 0.8 MG/DL Sodium Level 150 MEQ/L 149 MEQ/L Potassium Level 3.4 MEQ/L 2.9 MEQ/L Chloride Level 112 MEQ/L 112 MEQ/L Carbon Dioxide Level 30.2 MEQ/L 28.1 MEQ/L Anion Gap 8 MEQ/L 9 MEQ/L Estimat Glomerular Filtration Rate 102 ML/MIN 92 ML/MIN Phosphorus Level 2.7 MG/DL Magnesium Level 2.3 MG/DL Uric Acid 1.4 MG/DL B-Type Natriuretic Peptide 64 PG/ML Microbiology Date/Time Source Procedure Growth Status 12/28/17 12:15 Fluid Pleural Fluid Fungal Smear - Final NO FUNGAL ELEMENTS SEEN. Resulted 12/28/17 12:15 Fluid Pleural Fluid Fungal Culture Pending Resulted 12/28/17 12:15 Fluid Pleural Fluid Acid Fast Stain - Final NO ACID FAST BACILLI SEEN Resulted 12/28/17 12:15 Fluid Pleural Fluid Mycobacterial Culture Pending Resulted 12/28/17 12:15 Fluid Pleural Fluid Gram Stain - Final Complete 12/28/17 12:15 Fluid Pleural Fluid Body Fluid Culture - Final NO GROWTH IN 72 HRS.--AEROBICALLY OR ... Complete IMAGING: Chest X-Ray 01/01/18 0600 Signed Impressions: Service Date/Time: Monday, January 01, 2018 09:12 - CONCLUSION: 1. Bilateral pleural effusions unchanged from previous exam. 2. Qwftte-u-Axqs in good position. 3. Diffuse interstitial prominence probably chronic in etiology. This is unchanged from prior as well. Timothy Carrero MD Chest X-Ray 12/30/17 0000 Signed Impressions: Service Date/Time: Saturday, December 30, 2017 11:55 - CONCLUSION: Stable exam consistent with bilateral pleural effusions and/or overlying atelectasis. Radha Polanco MD Chest CT 12/30/17 0000 Signed Impressions: Service Date/Time: Saturday, December 30, 2017 21:13 - CONCLUSION: 1. Free intraperitoneal air in the upper abdomen of uncertain etiology. There is a gastrostomy present. 2. Moderate bilateral pleural effusions with compressive atelectasis. Patchy air space consolidation in the right upper lobe. 3. Moderate anasarca and ascites. 4. Findings called to the floor at the time of dictation. Elbert Carrasquillo MD Bone Biopsy CT 12/25/17 1142 Signed Impressions: Service Date/Time: Monday, December 25, 2017 12:32 - CONCLUSION: 1. Uncomplicated CT guided bone marrow aspirate. 2. Uncomplicated CT guided bone marrow biopsy. Lee Mijares MD CT Angiography 12/25/17 0000 Signed Impressions: Service Date/Time: Monday, December 25, 2017 09:26 - CONCLUSION: 1. No CT evidence for pulmonary artery embolism. 2. Moderate to large bilateral pleural effusions with associated compressive atelectasis at the lung bases. 3. 8mm nodule in the right middle lobe. Followup CT examination may be performed at 6 months to document stability if this has not been evaluated previously. 4. Very mildly prominent mediastinal and hilar nodes and partially imaged upper abdominal lymphadenopathy in this patient with history of lymphoma. Miguel Ashton MD Chest X-Ray 12/24/17 0000 Signed Impressions: Service Date/Time: Sunday, December 24, 2017 10:34 - CONCLUSION: 1. Stable bilateral lower lobe air space consolidation and small pleural effusions, right worse than left. Miguel Ashton MD PHYSICAL EXAMINATION: GENERAL: Awake and alert. HEENT: Extraocular movements grossly intact. Pupils reactive to light. No icterus. Oropharynx, dry mucosa no lesions. No thrush. NECK: Supple. No adenopathy. No swelling. LUNGS: Bilateral rhonchi. HEART: Regular S1 and S2. No murmurs, rubs or gallops. ABDOMEN: Bowel sounds present, soft, nontender. EXTREMITIES: No clubbing or cyanosis, 1+ edema of the lower extremities. SKIN: No rash. NEUROLOGIC: No gross focal finding. PSYCHIATRIC: Calm and cooperative. IMPRESSION: 1. Bibasilar lung infiltrates in patient with cough and immunosuppression secondary to lymphoma. 2. Bilateral pleural effusions. Probably contributing to his dyspnea. Post thoracentesis. Breathing is improved. 3. Lymphoma. Treated with chemotherapy. 4. Leukocytosis likely secondary to lymphoma on admission. White blood cell count now significantly depressed. Patient post chemotherapy. 5. Decreased nutrition in patient with anorexia and now post percutaneous endoscopic gastrostomy placement. 6. Loose stools. Patient has been receiving tube feedings. Stool C. difficile negative. RECOMMENDATIONS: 1. Continue Zosyn. 2. Continue vancomycin. 3. Monitor temperature. 4. Monitor white blood cell count. 5. Sputum culture if he is able to cough up a specimen. Lenin Salomon MD Jan 01, 2018 14:32
[2018-01-01] MEDS ORDERED: FUROSEMIDE 20 MG/2 ML VIAL IV ONE (15:00)
[2018-01-01] MEDS ORDERED: ETOMIDATE 20 MG/10 ML VIAL IV PUSH ONE (15:02)
[2018-01-01] MEDS ORDERED: SUCCINYLCHOLINE CHLORIDE 200 MG/10 ML VIAL IV PUSH ONE (15:03)
--- NOTE | 2018-01-01 15:07 | PD.ONC.PN ---
Subjective Subjective Remarks Afebrile overnight. Patient became hypoxic around 230PM. The cold meat chef was called and the patient underwent RSI. Objective Data Date Time Temp Pulse Resp B/P (MAP) Pulse Ox O2 Delivery O2 Flow Rate FiO2 01/01/18 14:14 95 01/01/18 14:00 76 01/01/18 13:00 88 01/01/18 11:30 97.5 100 18 128/78 (95) 95 01/01/18 11:00 90 01/01/18 10:00 90 01/01/18 09:00 84 01/01/18 08:02 97 01/01/18 08:00 80 01/01/18 08:00 98.6 98 18 110/77 (88) 95 01/01/18 07:52 97 Nasal Cannula 2.00 01/01/18 07:15 Nasal Cannula 2.00 01/01/18 07:00 86 01/01/18 05:25 79 18 133/77 (95) 94 01/01/18 04:00 91 01/01/18 00:05 97.8 80 16 119/67 (84) 93 01/01/18 00:00 111 12/31/17 22:23 97.5 71 16 116/78 12/31/17 21:00 96 Nasal Cannula 2.00 12/31/17 21:00 97.5 71 16 116/78 (91) 96 12/31/17 21:00 82 12/31/17 20:29 98 Nasal Cannula 2.00 12/31/17 17:00 82 12/31/17 16:00 68 12/31/17 15:54 97.7 65 20 140/86 (104) 95 01/01/18 01/01/18 01/01/18 07:00 15:00 23:00 Intake Total 1270 ml Output Total 800.0 ml Balance 470.0 ml Result Diagram: 01/01/1830 01/01/18 0530 Laboratory Results Laboratory Tests Test 01/01/18 02:50 01/01/18 05:30 Vancomycin Level Trough 15.9 MCG/ML White Blood Count 0.5 TH/MM3 Red Blood Count 3.40 MIL/MM3 Hemoglobin 9.5 GM/DL Hematocrit 28.2 % Mean Corpuscular Volume 82.9 FL Mean Corpuscular Hemoglobin 28.0 PG Mean Corpuscular Hemoglobin Concent 33.8 % Red Cell Distribution Width 18.9 % Platelet Count 137 TH/MM3 Mean Platelet Volume 8.3 FL Neutrophils (%) (Auto) 89.8 % Lymphocytes (%) (Auto) 9.8 % Monocytes (%) (Auto) 0.3 % Eosinophils (%) (Auto) 0.1 % Basophils (%) (Auto) 0.0 % Neutrophils # (Auto) 0.4 TH/MM3 Lymphocytes # (Auto) 0.0 TH/MM3 Monocytes # (Auto) 0.0 TH/MM3 Eosinophils # (Auto) 0.0 TH/MM3 Basophils # (Auto) 0.0 TH/MM3 CBC Comment AUTO DIFF Differential Total Cells Counted 50 Neutrophils % (Manual) 94 % Band Neutrophils % 2 % Lymphocytes % 4 % Neutrophils # (Manual) 0.5 TH/MM3 Differential Comment FINAL DIFF MANUAL Platelet Estimate LOW Platelet Morphology Comment NORMAL Red Cell Morphology Comment NORMAL Blood Urea Nitrogen 36 MG/DL Creatinine 0.82 MG/DL Random Glucose 168 MG/DL Total Protein 4.8 GM/DL Albumin 1.6 GM/DL Calcium Level 7.8 MG/DL Magnesium Level 2.3 MG/DL Uric Acid 1.4 MG/DL Alkaline Phosphatase 80 U/L Aspartate Amino Transf (AST/SGOT) 36 U/L Alanine Aminotransferase (ALT/SGPT) 56 U/L Total Bilirubin 0.8 MG/DL Sodium Level 149 MEQ/L Potassium Level 2.9 MEQ/L Chloride Level 112 MEQ/L Carbon Dioxide Level 28.1 MEQ/L Anion Gap 9 MEQ/L Estimat Glomerular Filtration Rate 92 ML/MIN B-Type Natriuretic Peptide 64 PG/ML Imaging Studies Last 24 hours Impressions Chest X-Ray 01/01/18 0600 Signed Impressions: Service Date/Time: Monday, January 01, 2018 09:12 - CONCLUSION: 1. Bilateral pleural effusions unchanged from previous exam. 2. Mhdjbb-r-[id number] in good position. 3. Diffuse interstitial prominence probably chronic in etiology. This is unchanged from prior as well. Timothy Carrero MD Administered Medications Medications (Trade) Dose Ordered Sig/Candace Route PRN Reason Start Time Stop Time Status Last Admin Dose Admin Sodium Chloride (NS Flush) 2 ml BID IV FLUSH 12/22/17 21:00 12/31/17 08:33 Ondansetron HCl (Zofran Inj) 4 mg Q6H PRN IVP NAUSEA OR VOMITING 12/22/17 18:15 01/01/18 10:02 Senna/Docusate Sodium (Mary Kay-Colace) 1 tab BID PO 12/22/17 21:00 12/31/17 08:32 Albuterol/ Ipratropium (Duoneb Neb) 1 ampule Q4HR NEB PRN NEB SOB/WHEEZING 12/22/17 20:15 01/01/18 10:08 Zolpidem Tartrate (Ambien) 5 mg HS PRN PO INSOMNIA 12/22/17 20:15 12/26/17 20:30 Pantoprazole Sodium (Protonix) 40 mg Q12HR PO 12/22/17 21:00 01/01/18 08:52 Metoprolol Tartrate (Lopressor) 50 mg Q12HR PO 12/22/17 21:00 01/01/18 08:52 Megestrol Acetate (Megace Liq) 800 mg DAILY PO 12/23/17 09:00 01/01/18 08:52 Budesonide/ Formoterol Fumarate (Symbicort 160-4.5 Mcg Inh) 1 puff Q12HR INH 12/22/17 21:00 01/01/18 08:53 Aspirin (Ecotrin Ec) 81 mg DAILY PO 12/23/17 09:00 01/01/18 08:52 Atorvastatin Calcium (Lipitor) 80 mg DAILY PO 12/23/17 09:00 01/01/18 08:52 Multivitamins (Theragran) 1 tab DAILY PO 12/23/17 09:00 01/01/18 08:52 Heparin Sodium (Porcine) (Heparin Central Flush) 250 units UNSCH PRN IV FLUSH SEE PROTOCOL 12/22/17 20:30 12/27/17 20:27 Insulin Aspart (NovoLOG SUPPLEMENTAL SCALE) 1 ACHS SLIDING SCALE SQ 12/22/17 21:00 12/31/17 22:40 Guaifenesin/ Dextromethorphan (Robitussin Dm 200-20 Mg/10 ml Liq) 10 ml Q4H PRN PO cough interfering with rest 12/22/17 21:00 12/26/17 18:27 Guaifenesin (Mucinex Er) 600 mg BID PO 12/23/17 21:00 01/01/18 08:52 Allopurinol (Zyloprim) 300 mg DAILY PO 12/26/17 09:00 01/01/18 08:52 Acetaminophen (Tylenol) 650 mg Q4H PRN PO FEVER>[id number] 12/26/17 14:45 12/26/17 20:32 Piperacillin Sod/ Tazobactam Sod 100 ml @ 200 mls/hr Q6H IV 12/27/17 14:00 01/01/18 12:25 Vancomycin HCl 1500 mg/Sodium Chloride 515 ml @ 250 mls/hr Q12H IV 12/27/17 15:00 01/01/18 05:28 Morphine Sulfate (Morphine Inj) 2 mg Q2HR PRN IV PUSH pain3-5 12/27/17 15:30 12/31/17 21:18 Morphine Sulfate (Morphine Inj) 4 mg Q2HR PRN IV PUSH PAIN SCALE 6 TO 8 12/27/17 15:45 12/29/17 03:43 Acetylcysteine (Mucomyst 10% Neb) 2 ml TID NEB NEB 12/29/17 14:00 01/01/18 11:23 Albuterol/ Ipratropium (Duoneb Neb) 1 ampule QID NEB INH 12/30/17 12:00 01/01/18 11:23 Acetaminophen (Tylenol) 650 mg Q4H PRN PO SEE LABEL COMMENTS 12/31/17 16:30 12/31/17 21:19 Calcium Carbonate (Tums Chew) 500 mg Q12HR PRN CHEW indigestion 12/31/17 16:15 01/01/18 05:27 Objective Remarks GENERAL: Elderly male in respiratory distress SKIN: Warm and dry. HEAD: Normocephalic. EYES: No injection or drainage. NECK: Supple, trachea midline. 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 intubated and transferring to intensive care. 12/31: C. difficile negative. Bone marrow biopsy shows no lymphoma involvement. Cytology from thoracentesis pending. Transfuse 1 unit PRBC for symptomatic with hgb 7.7. Patient would benefit from inpatient rehab for strengthening 12/28: continue solu-medrol. await thoracentesis. consult OT. 12/27: start Solu-medrol 40mg IV q 6. consult pulmonology for worsening infiltrates, pleural effusions. monitor CBC, counts dropping. 12/26: CT chest shows Bilateral Pl effusion. Continue aggressive diuresis. Had CHOP C1D1 yesterday. Tolerated well. Next chemo in 3 weeks as outpt. Continue allopurinol and prednisone. 12/25: CTA shows no PE. +LAD, PE. dyspnea likely d/t lymphoma. will give Solu- medrol 1g IV and start CHOP today. Anaplastic large cell, non-Hodgkin's lymphoma, at least stage III. --unclear whether he has any B symptoms, but this could be most likely given that he has significant weight loss, which is one of the symptoms of lymphoma. --Leukocytosis, anemia and neutrophilia, most likely due to bone marrow involvement by the lymphoma until proven otherwise. (2) Malnutrition ICD Codes: E46 - Unspecified protein-calorie malnutrition Plan: --tube feeds stopped at 715AM d/t inability to tolerate tube feeds. (3) Decubitus skin ulcer ICD Codes: L89.90 - Pressure ulcer of unspecified site, unspecified stage Plan: --wound care following. --has specialty air mattress (4) Respiratory failure ICD Codes: J96.90 - Respiratory failure, unspecified, unspecified whether with hypoxia or hypercapnia Plan: --concern for aspiration, patient was intubated on 01/01. --CTA showed no PE. --d/t pleural effusions, going for thoracentesis, 12/28 --s/p CHOP chemotherapy and Solu-Medrol 1G IV --pulmonology following, appreciate recommendations Assessment 72y/o male with newly diagnosed anaplastic large cell NHL. h/o COPD, hypercholesterolemia, hypertension, history of previous stroke. HPI: started 8 weeks ago with a cough mixed with greenish phlegm and shortness of breath. CT cap showed diffuse lymphadenopathy on both sides of the diaphragm. PET scan showed increased uptake in the lymph nodes involving the neck, chest, mediastinal and hilar area, retroperitoneum and pelvic lymph nodes. biopsy of the left neck mass=anaplastic large cell NHL echocardiogram, LVEF=55-70%. MUGA scan, showed EF of 60%. Attending Statement The exam, history, and the medical decision-making described in the above note were completed with the assistance of the mid-level provider. I reviewed and agree with the findings presented. I attest that I had a [id number] encounter with the patient on the same day, and personally performed and documented my assessment and findings in the medical record. P t was seen around 8:30 am C/O sob and heart burn. Unable to tolerate tube feed taper down solumedrol. D/W Dr Jeremy Ruvalcaba yesterday abiut bilat Pl effusion and thoracentesis. start neupogen. Problem Qualifiers (1) Malnutrition: Qualified Codes: E46 - Unspecified protein-calorie malnutrition Susy La Jan 01, 2018 15:06 Josy Suarez MD Jan 01, 2018 22:54
[2018-01-01] MEDS ORDERED: SODIUM CHLORID 0.9% 500 ML INJ 500 ML IV ONE (15:12)
[2018-01-01] MEDS ORDERED: PHENYLEPHRINE HCL 10 MG/ML VIAL ONE ×2 (15:12)
[2018-01-01] MEDS ORDERED: MIDAZOLAM 100 MG/100 ML INJ 100 ML IV PRN (15:15)
[2018-01-01] MEDS ORDERED: PHENYLEPHRINE 40 MG in D5W 500 ML IV PRN ×2 (15:15→17:45)
[2018-01-01] MEDS ORDERED: MIDAZOLAM HCL 2 MG/2 ML VIAL IV PUSH ONE (15:20)
[2018-01-01] MEDS ORDERED: ROCURONIUM INJ 50 MG/5 ML VIAL IV PUSH ONE (15:23)
--- NOTE | 2018-01-01 15:39 | PD.PROCEDR ---
Procedure Note Procedure Endotracheal Intubation Diagnosis: Acute hypoxemic respiratory failure Indications: Acute hypoxemic respiratory failure secondary to aspiration Consent: emergent Anesthesia: See MAR Description of the Procedure: The patient was positioned in the sniffing position. Pre-oxygenation was performed using a BMV. Anesthesia was induced via rapid sequence. A Glidescope 4 was used for laryngoscopy and a Grade 1 view was obtained. A 8.0 cuffed endotracheal tube was inserted atraumatically through the vocal cords. Confirmation of correct endotracheal tube placement was made by equal and bilateral breath sounds and colorimetric CO2 detection. The endotracheal tube was secured at 22 cm at the teeth. There were no immediate complications noted. The patient remained hemodynamically stable throughout the procedure. A chest x-ray has been ordered. I personally performed the procedure. Mckenna Velazquez MD Jan 01, 2018 15:39
[2018-01-01] MEDS ORDERED: SUCCINYLCHOLINE CHLORIDE 200 MG/10 ML VIAL ONE (16:16)
[2018-01-01] MEDS ORDERED: ROCURONIUM INJ 50 MG/5 ML VIAL ONE (16:16)
--- NOTE | 2018-01-01 16:34 | RADRPT ---
EXAM DATE/TIME: 01/01/2018 16:16 [facility] COMPARISON: CHEST SINGLE AP, December 30, 2017, 11:55. CHEST PA & LAT, January 01, 2018, 9:12. INDICATIONS : Post intubation, central line, and OG tube placement. MEDICAL HISTORY : Cardiovascular disease. Cerebrovascular disease. Hypertension. Lymphoma. SURGICAL HISTORY : None. ENCOUNTER: Subsequent ACUITY: 1 day PAIN SCORE: Non-responsive. LOCATION: Bilateral chest FINDINGS: Status post placement of an endotracheal tube. The endotracheal tube appears to be in good position. The right and left-sided central lines are in good position. There is an NG tube in the stomach. Ther e is no pneumothorax. There is a mild infiltrates in both lung bases. The heart size is within normal limits. CONCLUSION: 1. The endotracheal tube, central lines and NG tube are in good position. 2. No pneumothorax. Chandler Mcknight MD on January 01, 2018 at 16:31 Board Certified Radiologist. This report was verified electronically.
--- NOTE | 2018-01-01 16:35 | PD.CONS ---
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 On 12/25 patient received chemotherapy -CHOP regimen. Hospitalization further significant for PEG placement due to malnutrition and lack of appetite and thoracentesis for pleural effusion. Patient was being followed by pulmonary, cardiology and hematology services. Over the night patient had increased O2 requirements with high tube feed residual and concern for aspiration. A rapid response was called earlier this afternoon for worsening hypoxia despite NRM. Patient was emergently intubated and upon intubation he was found to have significant amount of tube feeds in the airway. An NG tube was placed on suction with 750 cc suctioned from the stomach. Patient was started on midazolam and fentanyl drips and phenylephrine for BP support. Patient was seen immediately on ICU arrival, 100% O2 with SPO2 100%. Patient requires 20 mics per minute of phenylephrine infusion. He is intubated and sedated, unresponsive. Review of Systems ROS Limitations: Intubated Past Family Social History Allergies: Coded Allergies: hydrocodone (Verified Adverse Reaction, Mild, 12/22/17) Hallucinations Past Medical History Hypertension Hyperlipidemia Previous history of CVA Reported Medications Not available Active Ordered Medications Current Medications Medications (Trade) Dose Ordered Sig/Candace Route Start Time Stop Time Status Last Admin (NS Flush) 2 ml UNSCH PRN IV FLUSH 12/22/17 18:15 (NS Flush) 2 ml BID IV FLUSH 12/22/17 21:00 12/31/17 08:33 (Zofran Inj) 4 mg Q6H PRN IVP 12/22/17 18:15 01/01/18 10:02 (Narcan Inj) 0.4 mg UNSCH PRN IV PUSH 12/22/17 18:15 (Mary Kay-Colace) 1 tab BID PO 12/22/17 21:00 12/31/17 08:32 (Milk Of Magnesia Liq) 30 ml Q12H PRN PO 12/22/17 18:15 (Senokot) 17.2 mg Q12H PRN PO 12/22/17 18:15 (Lactulose Liq) 30 ml DAILY PRN PO 12/22/17 18:15 (Duoneb Neb) 1 ampule Q4HR NEB PRN NEB 12/22/17 20:15 01/01/18 10:08 (Ambien) 5 mg HS PRN PO 12/22/17 20:15 12/26/17 20:30 (Protonix) 40 mg Q12HR PO 12/22/17 21:00 01/01/18 08:52 (Lopressor) 50 mg Q12HR PO 12/22/17 21:00 01/01/18 08:52 (Megace Liq) 800 mg DAILY PO 12/23/17 09:00 01/01/18 08:52 (Symbicort 160-4.5 Mcg Inh) 1 puff Q12HR INH 12/22/17 21:00 01/01/18 08:53 (Ecotrin Ec) 81 mg DAILY PO 12/23/17 09:00 01/01/18 08:52 (Lipitor) 80 mg DAILY PO 12/23/17 09:00 01/01/18 08:52 (Theragran) 1 tab DAILY PO 12/23/17 09:00 01/01/18 08:52 (Heparin Central Flush) 500 units UNSCH IV FLUSH 12/22/17 20:30 (NS Flush) 5 ml UNSCH PRN IVF 12/22/17 20:30 (Heparin Central Flush) 250 units UNSCH PRN IV FLUSH 12/22/17 20:30 12/27/17 20:27 (D50w (Vial) Inj) 50 ml UNSCH PRN IV PUSH 12/22/17 20:30 (Glucagon Inj) 1 mg UNSCH PRN OTHER 12/22/17 20:30 (NovoLOG SUPPLEMENTAL SCALE) 1 ACHS SLIDING SCALE SQ 12/22/17 21:00 12/31/17 22:40 (Robitussin Dm 200-20 Mg/10 ml Liq) 10 ml Q4H PRN PO 12/22/17 21:00 12/26/17 18:27 (Mucinex Er) 600 mg BID PO 12/23/17 21:00 01/01/18 08:52 (Tessalon) 100 mg TID PRN PO 12/25/17 12:00 (Zyloprim) 300 mg DAILY PO 12/26/17 09:00 01/01/18 08:52 (Tylenol) 650 mg Q4H PRN PO 12/26/17 14:45 12/26/17 20:32 Piperacillin Sod/ Tazobactam Sod 100 ml @ 200 mls/hr Q6H IV 12/27/17 14:00 01/01/18 12:25 Pharmacy Profile Note 0 ml @ 0 mls/hr UNSCH OTHER 12/27/17 12:45 Vancomycin HCl 1500 mg/Sodium Chloride 515 ml @ 250 mls/hr Q12H IV 12/27/17 15:00 01/01/18 05:28 (Morphine Inj) 2 mg Q2HR PRN IV PUSH 12/27/17 15:30 12/31/17 21:18 (Morphine Inj) 4 mg Q2HR PRN IV PUSH 12/27/17 15:45 12/29/17 03:43 (Morphine Inj) 6 mg Q2HR PRN IV PUSH 12/27/17 17:15 (Mucomyst 10% Neb) 2 ml TID NEB NEB 12/29/17 14:00 01/01/18 11:23 (Duoneb Neb) 1 ampule QID NEB INH 12/30/17 12:00 01/01/18 16:12 (Tylenol) 650 mg Q4H PRN PO 12/31/17 16:30 12/31/17 21:19 (Benadryl) 25 mg Q4H PRN PO 12/31/17 16:30 (Tums Chew) 500 mg Q12HR PRN CHEW 12/31/17 16:15 01/01/18 05:27 (Deltasone) 10 mg BID PO 01/01/18 21:00 Midazolam HCl 100 ml @ 2 mls/hr TITRATE PRN IV 01/01/18 15:15 Fentanyl Citrate 250 ml @ 0 mls/hr TITRATE PRN IV 01/01/18 15:15 Family History Unobtainable, patient is intubated Social History Unobtainable, patient is intubated Physical Exam Vital Signs Vital Signs Date Time Temp Pulse Resp B/P (MAP) Pulse Ox O2 Delivery O2 Flow Rate FiO2 01/01/18 16:14 100 100 01/01/18 15:22 90 102/70 (81) 100 01/01/18 15:18 74 108/74 (85) 100 01/01/18 15:17 86 110/70 (83) 100 01/01/18 15:13 79 68/44 (52) 100 01/01/18 15:11 85 65/43 (50) 100 18 15:09 83 64/45 (51) 100 01/01/18 15:07 96 98/66 (77) 99 01/01/18 15:00 100 100 01/01/18 15:00 98 100 01/01/18 15:00 91 156/92 (113) 94 01/01/18 14:55 91 154/94 (114) 93 01/01/18 14:52 97 151/88 (109) 93 01/01/18 14:50 91 131/96 (108) 91 01/01/18 14:47 98.2 91 139/81 (100) 86 01/01/18 14:14 95 01/01/18 14:00 76 01/01/18 13:00 88 01/01/18 11:30 97.5 100 18 128/78 (95) 95 01/01/18 11:00 90 01/01/18 10:00 90 01/01/18 09:00 84 01/01/18 08:02 97 01/01/18 08:00 80 01/01/18 08:00 98.6 98 18 110/77 (88) 95 01/01/18 07:52 97 Nasal Cannula 2.00 01/01/18 07:15 Nasal Cannula 2.00 01/01/18 07:00 86 01/01/18 05:25 79 18 133/77 (95) 94 01/01/18 04:00 91 01/01/18 00:05 97.8 80 16 119/67 (84) 93 01/01/18 00:00 111 12/31/17 22:23 97.5 71 16 116/78 12/31/17 21:00 96 Nasal Cannula 2.00 12/31/17 21:00 97.5 71 16 116/78 (91) 96 12/31/17 21:00 82 12/31/17 20:29 98 Nasal Cannula 2.00 12/31/17 17:00 82 Physical Exam General - elderly gentleman intubated and sedated, ill-appearing, unresponsive HEENT - pupils equal, reactive, sclerae anicteric, neck supple, no nuchal rigidity, neck veins distended, no carotid bruit, + ETT, + NGT CV - irregular S1, S2, no murmurs appreciated Chest -coarse breath sounds bilateral, good air entry, no wheezes Abdomen - soft, obese, appears non-tender, BS present, no hepatomegaly, no splenomegaly, + PEG Skin - + sacral decub, no discharge, some surrounding erythema Extremities - warm and well perfused, 2+ edema, + peripheral pulses, no clubbing Neuro - intubated, sedated, paralyzed, therefore exam is very limited Laboratory Laboratory Tests Test 01/01/18 02:50 01/01/18 05:30 01/01/18 14:58 Vancomycin Level Trough 15.9 White Blood Count 0.5 Red Blood Count 3.40 Hemoglobin 9.5 Hematocrit 28.2 Mean Corpuscular Volume 82.9 Mean Corpuscular Hemoglobin 28.0 Mean Corpuscular Hemoglobin Concent 33.8 Red Cell Distribution Width 18.9 Platelet Count 137 Mean Platelet Volume 8.3 Neutrophils (%) (Auto) 89.8 Lymphocytes (%) (Auto) 9.8 Monocytes (%) (Auto) 0.3 Eosinophils (%) (Auto) 0.1 Basophils (%) (Auto) 0.0 Neutrophils # (Auto) 0.4 Lymphocytes # (Auto) 0.0 Monocytes # (Auto) 0.0 Eosinophils # (Auto) 0.0 Basophils # (Auto) 0.0 CBC Comment AUTO DIFF Differential Total Cells Counted 50 Neutrophils % (Manual) 94 Band Neutrophils % 2 Lymphocytes % 4 Neutrophils # (Manual) 0.5 Differential Comment FINAL DIFF MANUAL Platelet Estimate LOW Platelet Morphology Comment NORMAL Red Cell Morphology Comment NORMAL Blood Urea Nitrogen 36 Creatinine 0.82 Random Glucose 168 Total Protein 4.8 Albumin 1.6 Calcium Level 7.8 Magnesium Level 2.3 Uric Acid 1.4 Alkaline Phosphatase 80 Aspartate Amino Transf (AST/SGOT) 36 Alanine Aminotransferase (ALT/SGPT) 56 Total Bilirubin 0.8 Sodium Level 149 Potassium Level 2.9 Chloride Level 112 Carbon Dioxide Level 28.1 Anion Gap 9 Estimat Glomerular Filtration Rate 92 B-Type Natriuretic Peptide 64 Blood Gas Puncture Site RT RADIAL Blood Gas Patient Temperature 98.6 Blood Gas HCO3 28 Blood Gas Base Excess 0.5 Blood Gas Oxygen Saturation 90 Arterial Blood pH 7.20 Arterial Blood Partial Pressure CO2 73 Arterial Blood Partial Pressure O2 78 Arterial Blood Oxygen Content 13.6 Arterial Blood Carboxyhemoglobin 1.0 Arterial Blood Methemoglobin 1.1 Blood Gas Hemoglobin 10.8 Oxygen Delivery Device NRB Blood Gas Liter Flow 15 Date/Time Source Procedure Growth Status 12/24/17 09:17 Blood Peripheral Aerobic Blood Culture - Final NO GROWTH IN 5 DAYS Complete 12/24/17 09:17 Blood Peripheral Anaerobic Blood Culture - Final NO GROWTH IN 5 DAYS Complete 12/28/17 12:15 Fluid Pleural Fluid Fungal Smear - Final NO FUNGAL ELEMENTS SEEN. Resulted 12/28/17 12:15 Fluid Pleural Fluid Fungal Culture Pending Resulted Result Diagram: 01/01/18 0530 01/01/18 0530 Imaging Last Impressions Chest X-Ray 01/01/18 0600 Signed Impressions: Service Date/Time: Monday, January 01, 2018 09:12 - CONCLUSION: 1. Bilateral pleural effusions unchanged from previous exam. 2. [id number] in good position. 3. Diffuse interstitial prominence probably chronic in etiology. This is unchanged from prior as well. Timothy Carrero MD Chest CT 12/30/17 0000 Signed Impressions: Service Date/Time: Saturday, December 30, 2017 21:13 - CONCLUSION: 1. Free intraperitoneal air in the upper abdomen of uncertain etiology. There is a gastrostomy present. 2. Moderate bilateral pleural effusions with compressive atelectasis. Patchy air space consolidation in the right upper lobe. 3. Moderate anasarca and ascites. 4. Findings called to the floor at the time of dictation. Elbert Carrasquillo MD Chest Ultrasound 12/27/17 0000 Signed Impressions: Service Date/Time: December 21:39 - CONCLUSION: Large left pleural effusion and would be amenable to thoracentesis. Frandy was made on the overlying skin. Andres Parekh MD Bone Biopsy CT 12/25/17 1142 Signed Impressions: Service Date/Time: Monday, December 25, 2017 12:32 - CONCLUSION: 1. Uncomplicated CT guided bone marrow aspirate. 2. Uncomplicated CT guided bone marrow biopsy. Lee Mijares MD CT Angiography 12/25/17 0000 Signed Impressions: Service Date/Time: Monday, December 25, 2017 09:26 - CONCLUSION: 1. No CT evidence for pulmonary artery embolism. 2. Moderate to large bilateral pleural effusions with associated compressive atelectasis at the lung bases. 3. 8mm nodule in the right middle lobe. Followup CT examination may be performed at 6 months to document stability if this has not been evaluated previously. 4. Very mildly prominent mediastinal and hilar nodes and partially imaged upper abdominal lymphadenopathy in this patient with history of lymphoma. Miguel Ashton MD Septic Shock Reassessment Septic shock perfusion: reassessment completed Assessment and Plan Assessment and Plan 1. Acute hypoxic and hypercapnic respiratory failure 2. Likely aspiration pneumonia 3. Circulatory shock, likely septic vs med induced, requiring low-dose pressor 4. Neutropenia with ANC count less than 500 5. NHL, received CHOP therapy on 12/25 6. Sacral decubitus 7. COPD 8. Hypokalemia 9. Hypernatremia - likely iatrogenic 1. Continue PRBC at current vent settings. Increase respiratory rate 18. PIP is 28, patient is synchronized with the vent, no auto PEEP 2. Vent bundle and bronchodilators 3. Broad-spectrum antibiotics per ID. Would consider broadening gram-negative coverage to meropenem. 4. Wean down phenylephrine and if needed start norepinephrine to keep map above 65 5. Emergent central line placed 6. Send CBC, CMP, mag, phosphorus, lactic acid and troponin 7. Serial lactic acid is elevated 8. If worsening pressor requirements will start stress dose steroids 9. Send sputum culture urine culture and blood cultures 10. Consider fungal workup 11. Stat chest x-ray 12. GI and DVT prophylaxis 13. Bedside ultrasound done, IVC is 2.1 cm without respiratory variation 14. Discussed with Dr. Salomon, we will stop Zosyn and start meropenem I spent 42 minutes of critical care time managing ventilator, pressors, fluids, reviewing data and ordering labs, discussing with nursing staff. Patient is critically ill with hypoxic respiratory failure, aspiration pneumonia , septic in a severely immunocompromised host and he is at extremely high risk for further deterioration and . Didier Montoya MD Jan 01, 2018 16:35
[2018-01-01] MEDS ORDERED: TERBUTALINE INJ 1 MG/ML AMP SQ PRN ×2 (16:45→17:00)
[2018-01-01] MEDS ORDERED: MISCELLANEOUS PHARMACY INFORMATION XX PRN (17:15)
[2018-01-01] MEDS ORDERED: ASP: Other exception documentation: ( ) PRN (17:15)
[2018-01-01] MEDS ORDERED: LACTATED RINGER'S 1000 ML INJ 1,000 ML IV SCH (17:30)
[2018-01-01 18:02] LABS: HEMATOCRIT 28.5 % (39.0-51.0); HEMOGLOBIN 9.4 GM/DL (13.0-17.0); MEAN CELL VOLUME 84.2 FL (80.0-100.0); MEAN CORPUSCULAR HEMOGLOBIN 27.9 PG (27.0-34.0); MEAN CORPUSCULAR HGB CONC 33.1 % (32.0-36.0); MEAN PLATELET VOLUME 8.4 FL (7.0-11.0); PLATELET COUNT 109 TH/MM3 (150-450); RED BLOOD COUNT 3.38 MIL/MM3 (4.50-5.90); RED CELL DISTRIBUTION WIDTH 19.2 % (11.6-17.2); WHITE BLOOD COUNT 0.1 TH/MM3 (4.0-11.0)
[2018-01-01 18:15] LABS: BACTERIA, URINE OCC /hpf; BILIRUBIN, URINE NEG (NEG); BLOOD, URINE SMALL (NEG); CALCIUM OXALATE CRYSTALS,URINE RARE /hpf; GLUCOSE,URINE TRACE mg/dL (NEG); KETONE, URINE NEG (NEG); NITRITE,URINE NEG (NEG); PH, URINE 5.5 (5.0-8.5); SQUAMOUS EPITHELIAL CELL URINE <1 /hpf (0-5); URINE COLOR YELLOW (YELLW/STRAW); URINE LEUKOCYTE ESTERASE NEG (NEG)
[2018-01-01 18:33] LABS: ALBUMIN 1.6 GM/DL (3.4-5.0); BICARBONATE 29.6 MEQ/L (21.0-32.0); CALCIUM 6.8 MG/DL (8.5-10.1); CALCIUM-PROTEIN CORRECTED 8.1 MG/DL (8.5-10.1); CREATININE 0.94 MG/DL (0.60-1.30); MAGNESIUM 2.1 MG/DL (1.5-2.5); TOTAL BILIRUBIN ADULT 0.5 MG/DL (0.2-1.0); TOTAL PROTEIN 4.6 GM/DL (6.4-8.2); TROPONIN I 0.02 NG/ML (0.02-0.05)
[2018-01-01] MEDS: CHLORHEXIDINE 0.12% (ORAL KIT) 15 ML CUP MT SCH (20:00)
[2018-01-01] MEDS: MEROPENEM INJ 1,000 MG in SODIUM CHLORIDE 0.9% INJ 100 ML IV SCH (21:00)
[2018-01-01 21:05] LABS: LYMPHOCYTES 7 % (9-44); NEUTROPHIL # MANUAL DIFF 0.1 TH/MM3 (1.8-7.7); POLYS (SEG NEUTROPHILS) 93 % (16-70)
[2018-01-01] MEDS: predniSONE 10 MG TAB PO SCH (21:20)
[2018-01-02] VITALS (14 sets, daily range): BP systolic 86–117; BP diastolic 50–69; PULSE 72–93; RESP 16–21; TEMP 97.7–98.2; O2SAT 96–100
[2018-01-02] MEDS: RESP: ACETYLCYSTEINE 10% 30 ML NEB NEB SCH ×2 (00:24→09:00)
[2018-01-02] MEDS: RESP: ALBUTEROL 2.5 MG/IPRATROPIUM 0.5 MG NEB (SCH) INH ×4 (00:24→20:34)
[2018-01-02] MEDS: VANCOMYCIN INJ 1,500 MG in SODIUM CHLORID 0.9% 500 ML INJ 500 ML IV SCH ×2 (03:00→15:08)
[2018-01-02] MEDS: MEROPENEM INJ 1,000 MG in SODIUM CHLORIDE 0.9% INJ 100 ML IV SCH ×3 (05:33→20:46)
[2018-01-02 06:11] LABS: HEMATOCRIT 25.8 % (39.0-51.0); HEMOGLOBIN 8.6 GM/DL (13.0-17.0); MEAN CELL VOLUME 84.3 FL (80.0-100.0); MEAN CORPUSCULAR HGB CONC 33.2 % (32.0-36.0); MEAN PLATELET VOLUME 8.4 FL (7.0-11.0); PLATELET COUNT 81 TH/MM3 (150-450); RED BLOOD COUNT 3.06 MIL/MM3 (4.50-5.90); RED CELL DISTRIBUTION WIDTH 18.8 % (11.6-17.2); WHITE BLOOD COUNT 0.1 TH/MM3 (4.0-11.0)
[2018-01-02 06:53] LABS: BICARBONATE 29.1 MEQ/L (21.0-32.0); CALCIUM 7.4 MG/DL (8.5-10.1); CREATININE 0.86 MG/DL (0.60-1.30)
[2018-01-02 07:19] LABS: TOTAL PROTEIN 4.4 GM/DL (6.4-8.2)
[2018-01-02] MEDS ORDERED: POTASSIUM CHLOR 40 MEQ PREMIX 100 ML IV PRN (07:30)
[2018-01-02] MEDS ORDERED: POTASSIUM PHOSPHATE MONOBASIC 500 MG TAB PO/TUBE PRN (07:30)
[2018-01-02] MEDS ORDERED: MAGNESIUM OXIDE 400 MG TAB PO PRN (07:30)
[2018-01-02] MEDS ORDERED: POTASSIUM PHOSPHATE MONOBASIC 500 MG TAB PO PRN (07:30)
[2018-01-02] MEDS ORDERED: POTASSIUM PHOSPHATE INJ 30 MMOL in SODIUM CHLOR 0.9% 250 ML INJ 250 ML IV PRN (07:30)
[2018-01-02] MEDS ORDERED: SODIUM PHOSPHATE INJ 30 MMOL in SODIUM CHLOR 0.9% 250 ML INJ 240 ML IV PRN (07:30)
[2018-01-02] MEDS ORDERED: MAGNESIUM SULFATE INJ 4 GM in SODIUM CHLORIDE 0.9% INJ 92 ML IV PRN (07:30)
[2018-01-02] MEDS ORDERED: POTASSIUM CHLOR 20 MEQ PREMIX 100 ML IV PRN (07:30)
[2018-01-02] MEDS ORDERED: POTASSIUM CHLORIDE 25 MEQ EFFERVESCENT TAB PO PRN (07:30)
[2018-01-02] MEDS ORDERED: MAGNESIUM SULFATE INJ 2 GM in SODIUM CHLORIDE 0.9% INJ 96 ML IV PRN (07:30)
--- NOTE | 2018-01-02 07:35 | PD.ONC.PN ---
Subjective Subjective Remarks Afebrile overnight. Patient intubated, sedated. Remains on pressor support. No family members at bedside. Objective Data Date Time Temp Pulse Resp B/P (MAP) Pulse Ox O2 Delivery O2 Flow Rate FiO2 01/02/18 05:41 78 102/61 01/02/18 04:00 97.9 72 18 101/59 (73) 100 01/02/18 04:00 70 01/02/18 00:13 100 60 01/02/18 00:00 81 01/02/18 00:00 70 01/02/18 00:00 98.1 79 18 86/50 (62) 100 01/01/18 20:13 100 70 01/01/18 20:00 70 01/01/18 20:00 97.9 84 18 99/58 (72) 100 01/01/18 20:00 83 01/01/18 19:00 100 Mechanical Ventilator 2.00 01/01/18 16:14 100 100 01/01/18 16:00 85 01/01/18 16:00 98.5 85 18 97/55 (69) 100 01/01/18 15:22 90 102/70 (81) 100 01/01/18 15:18 74 108/74 (85) 100 01/01/18 15:17 86 110/70 (83) 100 01/01/18 15:13 79 68/44 (52) 100 01/01/18 15:11 85 65/43 (50) 100 01/01/18 15:09 83 64/45 (51) 100 01/01/18 15:07 96 98/66 (77) 99 01/01/18 15:00 100 100 01/01/18 15:00 98 100 01/01/18 15:00 91 156/92 (113) 94 01/01/18 14:55 91 154/94 (114) 93 01/01/18 14:52 97 151/88 (109) 93 01/01/18 14:50 91 131/96 (108) 91 01/01/18 14:47 98.2 91 139/81 (100) 86 01/01/18 14:14 95 01/01/18 14:00 76 01/01/18 13:00 88 01/01/18 11:30 97.5 100 18 128/78 (95) 95 01/01/18 11:00 90 01/01/18 10:00 90 01/01/18 09:00 84 01/01/18 08:02 97 01/01/18 08:00 80 01/01/18 08:00 98.6 98 18 110/77 (88) 95 01/01/18 07:52 97 Nasal Cannula 2.00 01/02/18 01/02/18 01/02/18 07:00 15:00 23:00 Intake Total 100 ml Balance 100 ml Result Diagram: 01/02/18 0600 01/02/18 0600 Laboratory Results Laboratory Tests Test 01/01/18 14:58 01/01/18 17:12 01/01/18 17:15 01/01/18 17:35 Blood Gas Puncture Site RT RADIAL LT RADIAL Blood Gas Patient Temperature 98.6 98.6 Blood Gas HCO3 28 mmol/L 26 mmol/L Blood Gas Base Excess 0.5 mmol/L 0.9 mmol/L Blood Gas Oxygen Saturation 90 % 92 % Arterial Blood pH 7.20 7.32 Arterial Blood Partial Pressure CO2 73 mmHg 52 mmHg Arterial Blood Partial Pressure O2 78 mmHg 75 mmHg Arterial Blood Oxygen Content 13.6 Vol % 12.5 Vol % Arterial Blood Carboxyhemoglobin 1.0 % 1.2 % Arterial Blood Methemoglobin 1.1 % 0.8 % Blood Gas Hemoglobin 10.8 G/DL 9.6 G/DL Oxygen Delivery Device NRB VENTILATOR Blood Gas Liter Flow 15 L/M White Blood Count 0.1 TH/MM3 Red Blood Count 3.38 MIL/MM3 Hemoglobin 9.4 GM/DL Hematocrit 28.5 % Mean Corpuscular Volume 84.2 FL Mean Corpuscular Hemoglobin 27.9 PG Mean Corpuscular Hemoglobin Concent 33.1 % Red Cell Distribution Width 19.2 % Platelet Count 109 TH/MM3 Mean Platelet Volume 8.4 FL CBC Comment AUTO DIFF Differential Total Cells Counted 28 Neutrophils % (Manual) 93 % Lymphocytes % 7 % Neutrophils # (Manual) 0.1 TH/MM3 Differential Comment FINAL DIFF MANUAL Platelet Estimate LOW Platelet Morphology Comment NORMAL Nasal Screen MRSA (PCR) MRSA NOT DETECTED Blood Urea Nitrogen 40 MG/DL Creatinine 0.94 MG/DL Random Glucose 224 MG/DL Total Protein 4.6 GM/DL Albumin 1.6 GM/DL Calcium Level 6.8 MG/DL Phosphorus Level 3.0 MG/DL Magnesium Level 2.1 MG/DL Alkaline Phosphatase 70 U/L Aspartate Amino Transf (AST/SGOT) 26 U/L Alanine Aminotransferase (ALT/SGPT) 51 U/L Total Bilirubin 0.5 MG/DL Sodium Level 148 MEQ/L Potassium Level 2.7 MEQ/L Chloride Level 112 MEQ/L Carbon Dioxide Level 29.6 MEQ/L Anion Gap 6 MEQ/L Estimat Glomerular Filtration Rate 79 ML/MIN Lactic Acid Level 1.7 mmol/L Protein Corrected Calcium 8.1 MG/DL Troponin I 0.02 NG/ML Urine Color YELLOW Urine Turbidity HAZY Urine pH 5.5 Urine Specific [place] 1.035 Urine Protein 30 mg/dL Urine Glucose (UA) TRACE mg/dL Urine Ketones NEG mg/dL Urine Occult Blood SMALL Urine Nitrite NEG Urine Bilirubin NEG Urine Urobilinogen LESS THAN 2.0 MG/DL Urine Leukocyte Esterase NEG Urine RBC 1 /hpf Urine WBC 5 /hpf Urine Squamous Epithelial Cells <1 /hpf Urine Calcium Oxalate Crystals RARE /hpf Urine Bacteria OCC /hpf Microscopic Urinalysis Comment CATH-CULTURE IND Blood Gas Ventilator Setting 18/500/1.0/+5 Blood Gas Inspired Oxygen 80 % Test 01/02/18 06:00 White Blood Count 0.1 TH/MM3 Red Blood Count 3.06 MIL/MM3 Hemoglobin 8.6 GM/DL Hematocrit 25.8 % Mean Corpuscular Volume 84.3 FL Mean Corpuscular Hemoglobin 28.0 PG Mean Corpuscular Hemoglobin Concent 33.2 % Red Cell Distribution Width 18.8 % Platelet Count 81 TH/MM3 Mean Platelet Volume 8.4 FL CBC Comment AUTO DIFF Blood Urea Nitrogen 36 MG/DL Creatinine 0.86 MG/DL Random Glucose 115 MG/DL Total Protein 4.4 GM/DL Calcium Level 7.4 MG/DL Sodium Level 151 MEQ/L Potassium Level 2.8 MEQ/L Chloride Level 115 MEQ/L Carbon Dioxide Level 29.1 MEQ/L Anion Gap 7 MEQ/L Estimat Glomerular Filtration Rate 87 ML/MIN Protein Corrected Calcium 9.0 MG/DL Culture Results Microbiology Date/Time Source Procedure Growth Status 01/01/18 17:57 Blood Peripheral Aerobic Blood Culture Pending Received 01/01/18 17:57 Blood Peripheral Anaerobic Blood Culture Pending Received 01/01/18 17:52 Blood Peripheral Aerobic Blood Culture Pending Received 01/01/18 17:52 Blood Peripheral Anaerobic Blood Culture Pending Received 01/01/18 17:15 Sputum Endotracheal Gram Stain Pending Received 01/01/18 17:15 Sputum Endotracheal Sputum Culture Pending Received 01/01/18 17:15 Urine Catheterized Urine Urine Culture Pending Worksheet 01/01/18 17:15 Urine Clean Catch Legionella Antigen - Final PRESUMPTIVE NEGATIVE FOR LEGIONELLA P... Complete 01/01/18 17:15 Urine Clean Catch Streptococcus pneumoniae Antigen (M - Final PRESUMPTIVE NEGATIVE FOR STREPTOCOCCU... Complete Administered Medications Medications (Trade) Dose Ordered Sig/Candace Route PRN Reason Start Time Stop Time Status Last Admin Dose Admin Sodium Chloride (NS Flush) 2 ml BID IV FLUSH 12/22/17 21:00 01/01/18 21:00 Ondansetron HCl (Zofran Inj) 4 mg Q6H PRN IVP NAUSEA OR VOMITING 12/22/17 18:15 01/01/18 10:02 Senna/Docusate Sodium (Mary Kay-Colace) 1 tab BID PO 12/22/17 21:00 01/01/18 21:20 Albuterol/ Ipratropium (Duoneb Neb) 1 ampule Q4HR NEB PRN NEB SOB/WHEEZING 12/22/17 20:15 01/01/18 10:08 Zolpidem Tartrate (Ambien) 5 mg HS PRN PO INSOMNIA 12/22/17 20:15 12/26/17 20:30 Pantoprazole Sodium (Protonix) 40 mg Q12HR PO 12/22/17 21:00 01/01/18 08:52 Megestrol Acetate (Megace Liq) 800 mg DAILY PO 12/23/17 09:00 01/01/18 08:52 Budesonide/ Formoterol Fumarate (Symbicort 160-4.5 Mcg Inh) 1 puff Q12HR INH 12/22/17 21:00 01/01/18 08:53 Aspirin (Ecotrin Ec) 81 mg DAILY PO 12/23/17 09:00 01/01/18 08:52 Atorvastatin Calcium (Lipitor) 80 mg DAILY PO 12/23/17 09:00 01/01/18 08:52 Multivitamins (Theragran) 1 tab DAILY PO 12/23/17 09:00 01/01/18 08:52 Heparin Sodium (Porcine) (Heparin Central Flush) 250 units UNSCH PRN IV FLUSH SEE PROTOCOL 12/22/17 20:30 12/27/17 20:27 Insulin Aspart (NovoLOG SUPPLEMENTAL SCALE) 1 ACHS SLIDING SCALE SQ 12/22/17 21:00 01/01/18 21:00 Guaifenesin/ Dextromethorphan (Robitussin Dm 200-20 Mg/10 ml Liq) 10 ml Q4H PRN PO cough interfering with rest 12/22/17 21:00 12/26/17 18:27 Guaifenesin (Mucinex Er) 600 mg BID PO 12/23/17 21:00 01/01/18 08:52 Allopurinol (Zyloprim) 300 mg DAILY PO 12/26/17 09:00 01/01/18 08:52 Acetaminophen (Tylenol) 650 mg Q4H PRN PO FEVER>[id number] 12/26/17 14:45 12/26/17 20:32 Vancomycin HCl 1500 mg/Sodium Chloride 515 ml @ 250 mls/hr Q12H IV 12/27/17 15:00 01/02/18 03:00 Morphine Sulfate (Morphine Inj) 2 mg Q2HR PRN IV PUSH pain3-5 12/27/17 15:30 12/31/17 21:18 Morphine Sulfate (Morphine Inj) 4 mg Q2HR PRN IV PUSH PAIN SCALE 6 TO 8 12/27/17 15:45 12/29/17 03:43 Acetylcysteine (Mucomyst 10% Neb) 2 ml TID NEB NEB 12/29/17 14:00 01/02/18 00:24 Albuterol/ Ipratropium (Duoneb Neb) 1 ampule QID NEB INH 12/30/17 12:00 01/02/18 00:24 Acetaminophen (Tylenol) 650 mg Q4H PRN PO SEE LABEL COMMENTS 12/31/17 16:30 12/31/17 21:19 Calcium Carbonate (Tums Chew) 500 mg Q12HR PRN CHEW indigestion 12/31/17 16:15 01/01/18 05:27 Prednisone (Deltasone) 10 mg BID PO 01/01/18 21:00 01/01/18 21:20 Midazolam HCl 100 ml @ 2 mls/hr TITRATE PRN IV SEDATION 01/01/18 15:15 01/02/18 02:57 Chlorhexidine Gluconate (Peridex 0.12% Liq) 15 ml BID@08,20 MT 01/01/18 20:00 01/01/18 20:00 Meropenem 1000 mg/ Sodium Chloride 100 ml @ 200 mls/hr Q8H IV 01/01/18 20:00 01/02/18 05:33 Phenylephrine HCl 40 mg/Dextrose 500 ml @ 30 mls/hr TITRATE PRN IV Blood Pressure Management 01/01/18 17:45 01/02/18 05:41 Objective Remarks GENERAL: OT Intubated, sedated male, supine in hospital bed, head of the bed in upright position. SKIN: Warm and dry. HEAD: Normocephalic. EYES: No injection or drainage. NECK: Supple, trachea midline. CARDIOVASCULAR: Regular rate and rhythm RESPIRATORY: anterior clark with occasional rhonchi. GASTROINTESTINAL: Abdomen soft, non-tender, nondistended. G-tube clamped. EXTREMITIES: No cyanosis, or edema. MUSCULOSKELETAL: Adequate muscle tone. NEUROLOGICAL: intubated, sedated. 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 start Neupogen for neutropenia + infection 01/01: patient in respiratory failure. intubated and transferring to intensive care. 12/31: C. difficile negative. Bone marrow biopsy shows no lymphoma involvement. Cytology from thoracentesis pending. Transfuse 1 unit PRBC for symptomatic with hgb 7.7. Patient would benefit from inpatient rehab for strengthening 12/28: continue solu-medrol. await thoracentesis. consult OT. 12/27: start Solu-medrol 40mg IV q 6. consult pulmonology for worsening infiltrates, pleural effusions. monitor CBC, counts dropping. 12/26: CT chest shows Bilateral Pl effusion. Continue aggressive diuresis. Had CHOP C1D1 yesterday. Tolerated well. Next chemo in 3 weeks as outpt. Continue allopurinol and prednisone. 12/25: CTA shows no PE. +LAD, PE. dyspnea likely d/t lymphoma. will give Solu- medrol 1g IV and start CHOP today. Anaplastic large cell, non-Hodgkin's lymphoma, at least stage III. --unclear whether he has any B symptoms, but this could be most likely given that he has significant weight loss, which is one of the symptoms of lymphoma. --Leukocytosis, anemia and neutrophilia, most likely due to bone marrow involvement by the lymphoma until proven otherwise. (2) Malnutrition ICD Codes: E46 - Unspecified protein-calorie malnutrition Plan: --tube feeds stopped at 715AM on 01/01/18 d/t inability to tolerate tube feeds. (3) Decubitus skin ulcer ICD Codes: L89.90 - Pressure ulcer of unspecified site, unspecified stage Plan: --wound care following. (4) Respiratory failure ICD Codes: J96.90 - Respiratory failure, unspecified, unspecified whether with hypoxia or hypercapnia Plan: --d/t aspiration from tube feeds --CTA showed no PE. --d/t pleural effusions, going for thoracentesis, 12/28 --s/p CHOP chemotherapy and Solu-Medrol 1G IV --pulmonology following, appreciate recommendations (5) Pancytopenia due to antineoplastic chemotherapy ICD Codes: D61.810 - Antineoplastic chemotherapy induced pancytopenia; T45.1X5A - Adverse effect of antineoplastic and immunosuppressive drugs, initial encounter Plan: --Neupogen started on 01/02. --monitor and transfuse as needed Assessment 72y/o male with newly diagnosed anaplastic large cell NHL. h/o COPD, hypercholesterolemia, hypertension, history of previous stroke. HPI: started 8 weeks ago with a cough mixed with greenish phlegm and shortness of breath. CT cap showed diffuse lymphadenopathy on both sides of the diaphragm. PET scan showed increased uptake in the lymph nodes involving the neck, chest, mediastinal and hilar area, retroperitoneum and pelvic lymph nodes. biopsy of the left neck mass=anaplastic large cell NHL echocardiogram, LVEF=55-70%. MUGA scan, showed EF of 60%. Attending Statement The exam, history, and the medical decision-making described in the above note were completed with the assistance of the mid-level provider. I reviewed and agree with the findings presented. I attest that I had a [id number] encounter with the patient on the same day, and personally performed and documented my assessment and findings in the medical record. sedated , on vent Had aspiration of TF continue a/b Neupogen. Problem Qualifiers (1) Malnutrition: Qualified Codes: E46 - Unspecified protein-calorie malnutrition Susy La Jan 02, 2018 07:35 Josy Suarez MD Jan 02, 2018 16:14
--- NOTE | 2018-01-02 07:37 | HHI.CCPN ---
Subjective Remarks/Hospital Course 01/01: 72-year-old gentleman with history of hypertension, hyperlipidemia and previous CVA, COPD, now newly diagnosed with anaplastic large cell non-Hodgkin' s lymphoma now transferred from [facility] on 12/23 for further treatment. On 12/25 patient received chemotherapy -CHOP regimen. Hospitalization further significant for PEG placement due to malnutrition and lack of appetite and thoracentesis for pleural effusion. Patient was being followed by pulmonary, cardiology and hematology services. Over the night patient had increased O2 requirements with high tube feed residual and concern for aspiration. A rapid response was called earlier this afternoon for worsening hypoxia despite NRM. Patient was emergently intubated and upon intubation he was found to have significant amount of tube feeds in the airway. An NG tube was placed on suction with 750 cc suctioned from the stomach. Patient was started on midazolam and fentanyl drips and phenylephrine for BP support. Patient was seen immediately on ICU arrival, 100% O2 with SPO2 100%. Patient requires 20 mics per minute of phenylephrine infusion. He is intubated and sedated, unresponsive. 01/02: No events over the night. Patient remains critically ill. He is currently sedated and intubated. He remains on phenylephrine at 80 mics per minute. FiO2 down to 0.6. T-max 98.6, I/O 1550/400. Objective Vital Signs Date Time Temp Pulse Resp B/P (MAP) Pulse Ox O2 Delivery O2 Flow Rate FiO2 01/02/18 05:41 78 102/61 01/02/18 04:00 97.9 18 100 01/02/18 04:00 70 01/01/18 19:00 Mechanical Ventilator 2.00 Intake and Output 01/02/18 01/02/18 01/03/18 08:00 16:00 00:00 Intake Total 100 ml Balance 100 ml Result Diagram: 01/02/18 0600 01/02/18 0600 Other Results Microbiology Date/Time Source Procedure Growth Status 01/01/18 17:15 Urine Clean Catch Legionella Antigen - Final PRESUMPTIVE NEGATIVE FOR LEGIONELLA P... Complete 01/01/18 17:15 Urine Clean Catch Streptococcus pneumoniae Antigen (M - Final PRESUMPTIVE NEGATIVE FOR STREPTOCOCCU... Complete Laboratory Tests Test 01/01/18 14:58 01/01/18 17:35 Blood Gas Puncture Site RT RADIAL LT RADIAL Blood Gas Patient Temperature 98.6 98.6 Blood Gas HCO3 28 mmol/L (22-26) 26 mmol/L (22-26) Blood Gas Base Excess 0.5 mmol/L (-2-2) 0.9 mmol/L (-2-2) Blood Gas Oxygen Saturation 90 % (90-100) 92 % (90-100) Arterial Blood pH 7.20 (7.380-7.420) 7.32 (7.380-7.420) Arterial Blood Partial Pressure CO2 73 mmHg (38-42) 52 mmHg (38-42) Arterial Blood Partial Pressure O2 78 mmHg (61-120) 75 mmHg (61-120) Arterial Blood Oxygen Content 13.6 Vol % (12.0-20.0) 12.5 Vol % (12.0-20.0) Arterial Blood Carboxyhemoglobin 1.0 % (0-4) 1.2 % (0-4) Arterial Blood Methemoglobin 1.1 % (0-2) 0.8 % (0-2) Blood Gas Hemoglobin 10.8 G/DL (12.0-16.0) 9.6 G/DL (12.0-16.0) Oxygen Delivery Device NRB VENTILATOR Blood Gas Liter Flow 15 L/M Blood Gas Ventilator Setting 18/500/1.0/+5 Blood Gas Inspired Oxygen 80 % Imaging Last Impressions Chest X-Ray 01/01/18 0600 Signed Impressions: Service Date/Time: Monday, January 01, 2018 09:12 - CONCLUSION: 1. Bilateral pleural effusions unchanged from previous exam. 2. [id number] in good position. 3. Diffuse interstitial prominence probably chronic in etiology. This is unchanged from prior as well. Timothy Carrero MD Chest CT 12/30/17 0000 Signed Impressions: Service Date/Time: Saturday, December 30, 2017 21:13 - CONCLUSION: 1. Free intraperitoneal air in the upper abdomen of uncertain etiology. There is a gastrostomy present. 2. Moderate bilateral pleural effusions with compressive atelectasis. Patchy air space consolidation in the right upper lobe. 3. Moderate anasarca and ascites. 4. Findings called to the floor at the time of dictation. Elbert Carrasquillo MD Chest Ultrasound 12/27/17 0000 Signed Impressions: Service Date/Time: December 21:39 - CONCLUSION: Large left pleural effusion and would be amenable to thoracentesis. Frandy was made on the overlying skin. Andres Parekh MD Bone Biopsy CT 12/25/17 1142 Signed Impressions: Service Date/Time: Monday, December 25, 2017 12:32 - CONCLUSION: 1. Uncomplicated CT guided bone marrow aspirate. 2. Uncomplicated CT guided bone marrow biopsy. Lee Mijares MD CT Angiography 12/25/17 0000 Signed Impressions: Service Date/Time: Monday, December 25, 2017 09:26 - CONCLUSION: 1. No CT evidence for pulmonary artery embolism. 2. Moderate to large bilateral pleural effusions with associated compressive atelectasis at the lung bases. 3. 8mm nodule in the right middle lobe. Followup CT examination may be performed at 6 months to document stability if this has not been evaluated previously. 4. Very mildly prominent mediastinal and hilar nodes and partially imaged upper abdominal lymphadenopathy in this patient with history of lymphoma. Miguel Ashton MD Objective Remarks General - elderly gentleman intubated and sedated, ill-appearing, unresponsive HEENT - pupils are equal and reactive, sclerae are anicteric, neck is supple, no rigidity, + JVD, + ETT, + NGT, + LIJ CVC (01/01) -site is clean CV - irregular heart sounds, no murmurs, rubs or gallops appreciated Chest -still with coarse breath sounds bilateral, good air entry, and no wheezes , [id number] right chest Abdomen - soft, obese, appears non-tender, BS present, no hepatomegaly, no splenomegaly, + PEG Skin - + sacral decub, no discharge, some surrounding erythema Extremities - warm, 2+ edema, + peripheral pulses Neuro - limited, intubated, sedated, does not open eyes to voice stimuli, does not follow commands, pupils are equal and reactive A/P Assessment and Plan 1. Acute hypoxic and hypercapnic respiratory failure -improved O2 requirements compared to yesterday, currently down to 0.6 FiO2 but PEEP remains high 2. Likely aspiration pneumonia 3. Circulatory shock, likely septic vs med induced, requiring low-dose pressor -still requiring vasopressors 4. Neutropenia with ANC count less than 500 -worsening 5. NHL, received CHOP therapy on 12/25 6. Sacral decubitus 7. COPD 8. Hypokalemia -repleting 9. Hypernatremia - likely iatrogenic, worsening 1. Continue PRVC at current vent settings. PIP 23, patient synchronized with the vent, no auto PEEP 2. Vent bundle and bronchodilators 3. Check ABG now 4. Change phenylephrine to norepinephrine for BP support and keep map above 65 5. Sedation with propofol and fentanyl for arrest of -1, stop Versed 6. IV hydration with LR 7. Continue meropenem and Vanco 8. If worsening pressor requirements will start stress dose steroids 9. Repeat cultures sent yesterday 10. Will discuss with ID regarding further fungal workup 11. ABG this a.m. 12. GI and DVT prophylaxis 13. NG tube to suction 14. Neupogen per onc I spent 34 minutes of critical care time managing ventilator, pressors, fluids, reviewing data and ordering labs, discussing with nursing staff. Patient is critically ill with hypoxic respiratory failure, aspiration pneumonia , septic in a severely immunocompromised host and he is at extremely high risk for further deterioration and . Didier Montoya MD Jan 02, 2018 07:37
[2018-01-02] MEDS: CHLORHEXIDINE 0.12% (ORAL KIT) 15 ML CUP MT SCH ×2 (08:00→20:46)
[2018-01-02 08:20] LABS: LYMPHOCYTES 50 % (9-44); POLYS (SEG NEUTROPHILS) 50 % (16-70)
[2018-01-02 08:21] LABS: NEUTROPHIL # MANUAL DIFF 0.1 TH/MM3 (1.8-7.7)
[2018-01-02] MEDS: DOCUSATE SODIUM 50 MG/SENNA 8.6 MG TAB PO SCH ×2 (09:00→20:47)
[2018-01-02] MEDS: ASPIRIN EC 81 MG TABEC PO SCH (09:00)
[2018-01-02] MEDS: POTASSIUM CHLOR 20 MEQ PREMIX 100 ML IV PRN ×2 (09:12→10:34)
[2018-01-02] MEDS: fentaNYL DRIP 250 ML IV PRN (10:40)
[2018-01-02] MEDS: ATORVASTATIN 80 MG TAB PO SCH (10:41)
[2018-01-02] MEDS: predniSONE 10 MG TAB PO SCH ×2 (10:41→20:47)
[2018-01-02] MEDS: NOREPINEPHRINE-DEXTROSE DRIP 250 ML IV PRN ×2 (11:40→21:09)
[2018-01-02] MEDS: PROPOFOL 1000 MG/100 ML INJ 100 ML IV PRN ×3 (11:40→23:21)
--- NOTE | 2018-01-02 11:55 | HHI.IDPN ---
Note Infectious Disease Note Events of yesterday noted. Patient deteriorated. Patient was transferred to intensive care after he was intubated because of respiratory distress. He is now on the ventilator and sedated. Very little clear secretions being suctioned via the ET tube. His white blood cell count has continued to decline. New cultures have been sent. No fevers. Briefly discussed events with Dr. Montoya yesterday. Antibiotics broadened for additional coverage of potential infection CT scan of the chest showed patchy airspace consolidation in the right upper lobe 72-year-old white male who was diagnosed with lymphoma. The patient was noted to have become ill 2 months ago. He was noted to have cough and he was given 3 rounds of oral antibiotics without improvement of the cough. Subsequent workup revealed mediastinal adenopathy and other areas of adenopathy, and a biopsy of the lesion of the neck came back showing lymphoma. During his stay at [facility], he had no fever. He was given antibiotics. An Infusaport was placed on 12/20 for anticipated chemotherapy. PAST MEDICAL HISTORY: Stage IIIB anaplastic large cell lymphoma, COPD, hypertension, hyperlipidemia, history of CVA without residual deficits, nonsustained V-tach at [facility], neuropathy of the lower extremities, back surgery, Infusaport placement on 12/20/2017. ALLERGIES: HYDROCODONE. MEDICATIONS: Current Medications Medications (Trade) Dose Ordered Sig/Candace Route PRN Reason Start Time Stop Time Status Last Admin Dose Admin Sodium Chloride (NS Flush) 2 ml UNSCH PRN IV FLUSH FLUSH AFTER USING IV ACCESS 12/22/17 18:15 Sodium Chloride (NS Flush) 2 ml BID IV FLUSH 12/22/17 21:00 01/01/18 21:00 Ondansetron HCl (Zofran Inj) 4 mg Q6H PRN IVP NAUSEA OR VOMITING 12/22/17 18:15 01/01/18 10:02 Naloxone HCl (Narcan Inj) 0.4 mg UNSCH PRN IV PUSH SEE LABEL COMMENTS 12/22/17 18:15 Senna/Docusate Sodium (Mary Kay-Colace) 1 tab BID PO 12/22/17 21:00 01/01/18 21:20 Magnesium Hydroxide (Milk Of Magnesia Liq) 30 ml Q12H PRN PO Mild constipation 12/22/17 18:15 Sennosides (Senokot) 17.2 mg Q12H PRN PO Moderate constipation 12/22/17 18:15 Lactulose (Lactulose Liq) 30 ml DAILY PRN PO SEVERE CONSITIPATION 12/22/17 18:15 Albuterol/ Ipratropium (Duoneb Neb) 1 ampule Q4HR NEB PRN NEB SOB/WHEEZING 12/22/17 20:15 01/01/18 10:08 Zolpidem Tartrate (Ambien) 5 mg HS PRN PO INSOMNIA 12/22/17 20:15 12/26/17 20:30 Pantoprazole Sodium (Protonix) 40 mg Q12HR PO 12/22/17 21:00 01/01/18 08:52 Megestrol Acetate (Megace Liq) 800 mg DAILY PO 12/23/17 09:00 01/01/18 08:52 Budesonide/ Formoterol Fumarate (Symbicort 160-4.5 Mcg Inh) 1 puff Q12HR INH 12/22/17 21:00 01/01/18 08:53 Aspirin (Ecotrin Ec) 81 mg DAILY PO 12/23/17 09:00 01/01/18 08:52 Atorvastatin Calcium (Lipitor) 80 mg DAILY PO 12/23/17 09:00 01/02/18 10:41 Multivitamins (Theragran) 1 tab DAILY PO 12/23/17 09:00 01/01/18 08:52 Heparin Sodium (Porcine) (Heparin Central Flush) 500 units UNSCH IV FLUSH 12/22/17 20:30 Sodium Chloride (NS Flush) 5 ml UNSCH PRN IVF SEE PROTOCOL 12/22/17 20:30 Heparin Sodium (Porcine) (Heparin Central Flush) 250 units UNSCH PRN IV FLUSH SEE PROTOCOL 12/22/17 20:30 12/27/17 20:27 Dextrose (D50w (Vial) Inj) 50 ml UNSCH PRN IV PUSH HYPOGLYCEMIA-SEE COMMENTS 12/22/17 20:30 Glucagon (Glucagon Inj) 1 mg UNSCH PRN OTHER HYPOGLYCEMIA-SEE COMMENTS 12/22/17 20:30 Insulin Aspart (NovoLOG SUPPLEMENTAL SCALE) 1 ACHS SLIDING SCALE SQ 12/22/17 21:00 01/01/18 21:00 Guaifenesin/ Dextromethorphan (Robitussin Dm 200-20 Mg/10 ml Liq) 10 ml Q4H PRN PO cough interfering with rest 12/22/17 21:00 12/26/17 18:27 Guaifenesin (Mucinex Er) 600 mg BID PO 12/23/17 21:00 01/01/18 08:52 Benzonatate (Tessalon) 100 mg TID PRN PO cough 12/25/17 12:00 Allopurinol (Zyloprim) 300 mg DAILY PO 12/26/17 09:00 01/01/18 08:52 Acetaminophen (Tylenol) 650 mg Q4H PRN PO FEVER>[id number] 12/26/17 14:45 12/26/17 20:32 Pharmacy Profile Note 0 ml @ 0 mls/hr UNSCH OTHER 12/27/17 12:45 Vancomycin HCl 1500 mg/Sodium Chloride 515 ml @ 250 mls/hr Q12H IV 12/27/17 15:00 01/02/18 03:00 Morphine Sulfate (Morphine Inj) 2 mg Q2HR PRN IV PUSH pain3-5 12/27/17 15:30 12/31/17 21:18 Morphine Sulfate (Morphine Inj) 4 mg Q2HR PRN IV PUSH PAIN SCALE 6 TO 8 12/27/17 15:45 12/29/17 03:43 Morphine Sulfate (Morphine Inj) 6 mg Q2HR PRN IV PUSH pain9-10 12/27/17 17:15 Acetylcysteine (Mucomyst 10% Neb) 2 ml TID NEB NEB 12/29/17 14:00 01/02/18 00:24 Albuterol/ Ipratropium (Duoneb Neb) 1 ampule QID NEB INH 12/30/17 12:00 01/02/18 00:24 Acetaminophen (Tylenol) 650 mg Q4H PRN PO SEE LABEL COMMENTS 12/31/17 16:30 12/31/17 21:19 Diphenhydramine HCl (Benadryl) 25 mg Q4H PRN PO SEE LABEL COMMENTS 12/31/17 16:30 Calcium Carbonate (Tums Chew) 500 mg Q12HR PRN CHEW indigestion 12/31/17 16:15 01/01/18 05:27 Prednisone (Deltasone) 10 mg BID PO 01/01/18 21:00 01/02/18 10:41 Midazolam HCl 100 ml @ 2 mls/hr TITRATE PRN IV SEDATION 01/01/18 15:15 01/02/18 02:57 Fentanyl Citrate 250 ml @ 0 mls/hr TITRATE PRN IV SEDATION 01/01/18 15:15 01/02/18 10:40 Terbutaline Sulfate (Brethine Inj) 1 mg UNSCH PRN SQ FOR EXTRAVASATION PROTOCOL 01/01/18 16:45 Chlorhexidine Gluconate (Peridex 0.12% Liq) 15 ml BID@08,20 MT 01/01/18 20:00 01/02/18 08:00 Norepinephrine Bitartrate 250 ml @ 7.5 mls/hr TITRATE PRN IV Blood pressure management 01/01/18 17:00 01/02/18 11:40 Terbutaline Sulfate (Brethine Inj) 1 mg UNSCH PRN SQ For Extravasation 01/01/18 17:00 Miscellaneous Medication (ASP Crit: Other exception documentation) 1 UNSCH X1 PRN .XX PHARMACY DOCUMENTATION 01/01/18 17:15 01/02/18 17:14 Miscellaneous Medication ([facility]) 1 UNSCH X1 PRN XX PHARMACY DOCUMENTATION 01/01/18 17:15 01/02/18 17:14 Meropenem 1000 mg/ Sodium Chloride 100 ml @ 200 mls/hr Q8H IV 01/01/18 20:00 01/02/18 11:40 Lactated Ringer's 1,000 ml @ 999 mls/hr Q1H1M IV 01/01/18 17:30 Phenylephrine HCl 40 mg/Dextrose 500 ml @ 30 mls/hr TITRATE PRN IV Blood Pressure Management 01/01/18 17:45 01/02/18 05:41 Filgrastim 480 mcg/Dextrose 26.6 ml @ 53.2 mls/hr DAILY@14 IV 01/02/18 14:00 Potassium Chloride 100 ml @ 50 mls/hr Q2H PRN IV For Potassium 2.8 - 3.2 mEq/L 01/02/18 07:30 Potassium Chloride 100 ml @ 50 mls/hr Q2H PRN IV For Potassium 2.8 - 3.2 mEq/L 01/02/18 07:30 01/02/18 10:34 Potassium Bicarb/ Potassium Chloride (K-Lyte Cl Eff) 50 meq UNSCH PRN PO For Potassium 3.3 - 3.5 mEq/L 01/02/18 07:30 Potassium Chloride 100 ml @ 25 mls/hr UNSCH PRN IV For Potassium 3.3 - 3.5 mEq/L 01/02/18 07:30 Potassium Chloride 100 ml @ 50 mls/hr Q2H PRN IV For Potassium 3.3 - 3.5 mEq/L 01/02/18 07:30 Magnesium Sulfate 4 gm/Sodium Chloride 100 ml @ 50 mls/hr UNSCH PRN IV For Magnesium 0.9 - 1.1 mg/dL 01/02/18 07:30 Magnesium Oxide (Mag-Ox) 800 mg UNSCH PRN PO For Magnesium 1.2 - 1.6 mg/dL 01/02/18 07:30 Magnesium Sulfate 2 gm/Sodium Chloride 100 ml @ 50 mls/hr UNSCH PRN IV For Magnesium 1.2 - 1.6 mg/dL 01/02/18 07:30 Potassium Phosphate (K-Phos) 2,000 mg Q4H PRN PO For Phosphorus < 2.5 mg/dL 01/02/18 07:30 Sodium Phosphate 30 mmol/Sodium Chloride 250 ml @ 42 mls/hr UNSCH PRN IV For Phosphorus < 2.5 mg/dL 01/02/18 07:30 Potassium Phosphate (K-Phos) 2,000 mg UNSCH PRN PO/TUBE SEE LABEL COMMENTS 01/02/18 07:30 Potassium Phosphate 30 mmol/ Sodium Chloride 260 ml @ 42 mls/hr UNSCH PRN IV SEE LABEL COMMENTS 01/02/18 07:30 Propofol 100 ml @ 2.757 mls/ hr TITRATE PRN IV SEDATION 01/02/18 11:15 01/02/18 11:40 OBJECTIVE: Vital Signs Date Time Temp Pulse Resp B/P (MAP) Pulse Ox O2 Delivery O2 Flow Rate FiO2 01/02/18 11:40 82 111/58 01/02/18 11:07 100 50 01/02/18 08:50 100 60 01/02/18 08:00 70 01/02/18 08:00 98.0 74 17 109/61 (77) 100 01/02/18 07:00 75 01/02/18 05:41 78 102/61 01/02/18 04:00 97.9 72 18 101/59 (73) 100 01/02/18 04:00 70 01/02/18 00:13 100 60 01/02/18 00:00 81 01/02/18 00:00 70 01/02/18 00:00 98.1 79 18 86/50 (62) 100 01/01/18 20:13 100 70 01/01/18 20:00 70 01/01/18 20:00 97.9 84 18 99/58 (72) 100 01/01/18 20:00 83 01/01/18 19:00 100 Mechanical Ventilator 2.00 01/01/18 16:14 100 100 01/01/18 16:00 85 01/01/18 16:00 98.5 85 18 97/55 (69) 100 01/01/18 15:22 90 102/70 (81) 100 01/01/18 15:18 74 108/74 (85) 100 01/01/18 15:17 86 110/70 (83) 100 01/01/18 15:13 79 68/44 (52) 100 01/01/18 15:11 85 65/43 (50) 100 01/01/18 15:09 83 64/45 (51) 100 01/01/18 15:07 96 98/66 (77) 99 01/01/18 15:00 100 100 01/01/18 15:00 98 100 01/01/18 15:00 91 156/92 (113) 94 01/01/18 14:55 91 154/94 (114) 93 01/01/18 14:52 97 151/88 (109) 93 01/01/18 14:50 91 131/96 (108) 91 01/01/18 14:47 98.2 91 139/81 (100) 86 01/01/18 14:14 95 01/01/18 14:00 76 01/01/18 13:00 88 Laboratory Tests Test 01/01/18 05:30 01/01/18 17:12 01/02/18 06:00 White Blood Count 0.5 TH/MM3 0.1 TH/MM3 0.1 TH/MM3 Red Blood Count 3.40 MIL/MM3 3.38 MIL/MM3 3.06 MIL/MM3 Hemoglobin 9.5 GM/DL 9.4 GM/DL 8.6 GM/DL Hematocrit 28.2 % 28.5 % 25.8 % Mean Corpuscular Volume 82.9 FL 84.2 FL 84.3 FL Mean Corpuscular Hemoglobin 28.0 PG 27.9 PG 28.0 PG Mean Corpuscular Hemoglobin Concent 33.8 % 33.1 % 33.2 % Red Cell Distribution Width 18.9 % 19.2 % 18.8 % Platelet Count 137 TH/MM3 109 TH/MM3 81 TH/MM3 Mean Platelet Volume 8.3 FL 8.4 FL 8.4 FL Neutrophils (%) (Auto) 89.8 % Lymphocytes (%) (Auto) 9.8 % Monocytes (%) (Auto) 0.3 % Eosinophils (%) (Auto) 0.1 % Basophils (%) (Auto) 0.0 % Neutrophils # (Auto) 0.4 TH/MM3 Lymphocytes # (Auto) 0.0 TH/MM3 Monocytes # (Auto) 0.0 TH/MM3 Eosinophils # (Auto) 0.0 TH/MM3 Basophils # (Auto) 0.0 TH/MM3 CBC Comment AUTO DIFF AUTO DIFF AUTO DIFF Differential Total Cells Counted 50 28 4 Neutrophils % (Manual) 94 % 93 % 50 % Band Neutrophils % 2 % Lymphocytes % 4 % 7 % 50 % Neutrophils # (Manual) 0.5 TH/MM3 0.1 TH/MM3 0.1 TH/MM3 Differential Comment FINAL DIFF MANUAL FINAL DIFF MANUAL FINAL DIFF MANUAL Platelet Estimate LOW LOW LOW Platelet Morphology Comment NORMAL NORMAL NORMAL Red Cell Morphology Comment NORMAL Laboratory Tests Test 01/01/18 05:30 01/01/18 17:12 01/02/18 06:00 Blood Urea Nitrogen 36 MG/DL 40 MG/DL 36 MG/DL Creatinine 0.82 MG/DL 0.94 MG/DL 0.86 MG/DL Random Glucose 168 MG/DL 224 MG/DL 115 MG/DL Total Protein 4.8 GM/DL 4.6 GM/DL 4.4 GM/DL Albumin 1.6 GM/DL 1.6 GM/DL Calcium Level 7.8 MG/DL 6.8 MG/DL 7.4 MG/DL Magnesium Level 2.3 MG/DL 2.1 MG/DL Uric Acid 1.4 MG/DL Alkaline Phosphatase 80 U/L 70 U/L Aspartate Amino Transf (AST/SGOT) 36 U/L 26 U/L Alanine Aminotransferase (ALT/SGPT) 56 U/L 51 U/L Total Bilirubin 0.8 MG/DL 0.5 MG/DL Sodium Level 149 MEQ/L 148 MEQ/L 151 MEQ/L Potassium Level 2.9 MEQ/L 2.7 MEQ/L 2.8 MEQ/L Chloride Level 112 MEQ/L 112 MEQ/L 115 MEQ/L Carbon Dioxide Level 28.1 MEQ/L 29.6 MEQ/L 29.1 MEQ/L Anion Gap 9 MEQ/L 6 MEQ/L 7 MEQ/L Estimat Glomerular Filtration Rate 92 ML/MIN 79 ML/MIN 87 ML/MIN B-Type Natriuretic Peptide 64 PG/ML Phosphorus Level 3.0 MG/DL Lactic Acid Level 1.7 mmol/L Protein Corrected Calcium 8.1 MG/DL 9.0 MG/DL Troponin I 0.02 NG/ML Microbiology Date/Time Source Procedure Growth Status 01/01/18 17:57 Blood Peripheral Aerobic Blood Culture - Preliminary NO GROWTH IN 1 DAY Resulted 01/01/18 17:57 Blood Peripheral Anaerobic Blood Culture - Preliminary NO GROWTH IN 1 DAY Resulted 01/01/18 17:52 Blood Peripheral Aerobic Blood Culture - Preliminary NO GROWTH IN 1 DAY Resulted 01/01/18 17:52 Blood Peripheral Anaerobic Blood Culture - Preliminary NO GROWTH IN 1 DAY Resulted 01/01/18 17:15 Sputum Endotracheal Gram Stain - Final Resulted 01/01/18 17:15 Sputum Endotracheal Sputum Culture Pending Resulted 01/01/18 17:15 Urine Catheterized Urine Urine Culture - Preliminary NO GROWTH IN 24 HOURS. Resulted 01/01/18 17:15 Urine Clean Catch Legionella Antigen - Final PRESUMPTIVE NEGATIVE FOR LEGIONELLA P... Complete 01/01/18 17:15 Urine Clean Catch Streptococcus pneumoniae Antigen (M - Final PRESUMPTIVE NEGATIVE FOR STREPTOCOCCU... Complete Microbiology Date/Time Source Procedure Growth Status 12/28/17 12:15 Fluid Pleural Fluid Fungal Smear - Final NO FUNGAL ELEMENTS SEEN. Resulted 12/28/17 12:15 Fluid Pleural Fluid Fungal Culture Pending Resulted 12/28/17 12:15 Fluid Pleural Fluid Acid Fast Stain - Final NO ACID FAST BACILLI SEEN Resulted 12/28/17 12:15 Fluid Pleural Fluid Mycobacterial Culture Pending Resulted 12/28/17 12:15 Fluid Pleural Fluid Gram Stain - Final Complete 12/28/17 12:15 Fluid Pleural Fluid Body Fluid Culture - Final NO GROWTH IN 72 HRS.--AEROBICALLY OR ... Complete IMAGING: Chest X-Ray 01/01/18 0600 Signed Impressions: Service Date/Time: Monday, January 01, 2018 09:12 - CONCLUSION: 1. Bilateral pleural effusions unchanged from previous exam. 2. Yrdmre-d-Iney in good position. 3. Diffuse interstitial prominence probably chronic in etiology. This is unchanged from prior as well. Timothy Carrero MD Chest X-Ray 12/30/17 0000 Signed Impressions: Service Date/Time: Saturday, December 30, 2017 11:55 - CONCLUSION: Stable exam consistent with bilateral pleural effusions and/or overlying atelectasis. Radha Polanco MD Chest CT 12/30/17 0000 Signed Impressions: Service Date/Time: Saturday, December 30, 2017 21:13 - CONCLUSION: 1. Free intraperitoneal air in the upper abdomen of uncertain etiology. There is a gastrostomy present. 2. Moderate bilateral pleural effusions with compressive atelectasis. Patchy air space consolidation in the right upper lobe. 3. Moderate anasarca and ascites. 4. Findings called to the floor at the time of dictation. Elbert Carrasquillo MD Bone Biopsy CT 12/25/17 1142 Signed Impressions: Service Date/Time: Monday, December 25, 2017 12:32 - CONCLUSION: 1. Uncomplicated CT guided bone marrow aspirate. 2. Uncomplicated CT guided bone marrow biopsy. Lee Mijares MD CT Angiography 12/25/17 0000 Signed Impressions: Service Date/Time: Monday, December 25, 2017 09:26 - CONCLUSION: 1. No CT evidence for pulmonary artery embolism. 2. Moderate to large bilateral pleural effusions with associated compressive atelectasis at the lung bases. 3. 8mm nodule in the right middle lobe. Followup CT examination may be performed at 6 months to document stability if this has not been evaluated previously. 4. Very mildly prominent mediastinal and hilar nodes and partially imaged upper abdominal lymphadenopathy in this patient with history of lymphoma. Miguel Ashton MD Chest X-Ray 12/24/17 0000 Signed Impressions: Service Date/Time: Sunday, December 24, 2017 10:34 - CONCLUSION: 1. Stable bilateral lower lobe air space consolidation and small pleural effusions, right worse than left. Miguel Ashton MD PHYSICAL EXAMINATION: GENERAL: Sedated on the ventilator. HEENT: No icterus. NECK: Supple. No adenopathy. No swelling. LUNGS: Bilateral rhonchi. HEART: Regular S1 and S2. No murmurs, rubs or gallops. ABDOMEN: Bowel sounds present, soft, nontender. EXTREMITIES: No clubbing or cyanosis, 1+ edema of the lower extremities. SKIN: No rash. NEUROLOGIC: No gross focal finding. PSYCHIATRIC: Calm and cooperative. IMPRESSION: 1. Bibasilar lung infiltrates in patient with cough. 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 Aspiration with decline in respiratory status. 2. Acute respiratory failure. Intubated on the ventilator. 3. Bilateral pleural effusions. Post thoracentesis. 4. Lymphoma. Treated with chemotherapy. 5. Leukocytosis likely secondary to lymphoma on admission. White blood cell count now significantly depressed. Patient post chemotherapy. 5. Decreased nutrition in patient with anorexia and now post percutaneous endoscopic gastrostomy placement. 6. Loose stools. Patient has been receiving tube feedings. Stool C. difficile negative. RECOMMENDATIONS: 1. Continue meropenem 2. Continue vancomycin. 3. Monitor cultures including sputum, blood and urine. 4. Monitor temperature. 5. Add antifungal coverage because of the profound neutropenia. 6. Monitor clinical status. Lenin Salomon MD Jan 02, 2018 11:55
[2018-01-02] MEDS: MICAFUNGIN INJ 100 MG in SODIUM CHLORIDE 0.9% INJ 100 ML IV SCH (13:00)
--- NOTE | 2018-01-02 14:00 | PD.PROCEDR ---
Central Line Procedure REASON FOR PROCEDURE Central venous access PROCEDURE PERFORMED on 01/01/18 Central line placement: Left internal jugular vein CONSENT Informed consent for procedure was obtained from . The risks and benefits of the procedure were discussed to include but limited to bleeding, clot formation, infection, and even . ANESTHESIA Local injection of 1% Lidocaine DESCRIPTION OF THE PROCEDURE The patient was placed in supine, mild Trendelenburg position. The area was exposed and cleansed with ChloraPrep, times two. Large sterile drape was used to cover the patient, with the site exposed, under sterile conditions including cap, face mask, sterile gown, and sterile gloves. On single attempt, the introducer needle was inserted with negative pressure in syringe and venous flash was obtained. The guide wire was then advanced without any restriction and the needle was removed. The dilator was used without any complications. Using Seldinger technique the catheter was advanced over the guide wire to a depth of 18 centimeters. The guide wire was removed. All ports were aspirated with dark venous blood return and flushed easily with sterile saline. All ports were capped. Antibiotic disc was placed around central line at puncture site. The central line was secured to the skin with two interrupted 2.0 silk sutures. The area was bandaged with sterile see-through central line bandage. RADIOLOGICAL DATA Ultrasound guidance was used to locate the vein. Doppler/color flow was used to confirm venous flow. Correct guidewire placement was verified using ultrasound. COMPLICATIONS: No apparent complications ESTIMATED BLOOD LOSS: Less than 1 cc. Didier Montoya MD Jan 02, 2018 14:00
[2018-01-02] MEDS: FILGRASTIM INJ 480 MCG in DEXTROSE 5% IN WATER INJ 25 ML IV SCH ×2 (15:08)
[2018-01-02 17:30] LABS: BICARBONATE 27.5 MEQ/L (21.0-32.0); CALCIUM 7.6 MG/DL (8.5-10.1); CREATININE 0.96 MG/DL (0.60-1.30); MAGNESIUM 2.1 MG/DL (1.5-2.5); PHOSPHORUS 2.3 MG/DL (2.5-4.9)
[2018-01-02] MEDS: BUDESONIDE-FORMOTEROL 160/4.5 MCG INHALER INH SCH (20:43)
[2018-01-02] MEDS: PANTOPRAZOLE SOD 40 MG DELAYED RELEASE TAB PO SCH (20:44)
[2018-01-02] MEDS: guaiFENesin E.R. 600 MG TAB PO SCH (20:44)
[2018-01-02] MEDS: SODIUM CHLORIDE 0.9% FLUSH 10 ML FLUSH IV FLUSH SCH (20:44)
[2018-01-02] MEDS: INSULIN ASPART SUPPLEMENTAL SCALE SQ SCH (21:00)
--- NOTE | 2018-01-02 22:07 | RADRPT ---
EXAM DATE/TIME: 01/02/2018 21:38 [facility] COMPARISON: No previous studies available for comparison. INDICATIONS : Abdomen pain. ORAL CONTRAST: No oral contrast ingested. RADIATION DOSE: 15.45 CTDIvol (mGy) MEDICAL HISTORY : Stroke. Cardiovascular disease Hypertension.Lymphoma. SURGICAL HISTORY : None. ENCOUNTER: Initial ACUITY: 1 day PAIN SCALE: 4/10 LOCATION: Bilateral abdomen TECHNIQUE: Volumetric scanning of the abdomen and pelvis was performed. Using automated exposure control and ad justment of the mA and/or kV according to patient size, radiation dose was kept as low as reasonably achievable to obtain optimal diagnostic quality images. DICOM format image data is available electro nically for review and comparison. FINDINGS: Lung bases demonstrate moderate bilateral effusions with compressive atelectasis. There is mild to moderate ascites. Moderate anasarca present. A gastrostomy tube is present and there is an NG tube tip seen in the distal aspect of the stomach. T here is free intraperitoneal air of unknown etiology but could be related to gastrostomy. Cannot excl ude NG tube causing a small gastric perforation given the proximity of the free air to the tip in the NG tube. Hay catheter in bladder. Colonic diverticula. No evidence for bowel obstruction. Nonobstructing 4 mm calculus upper pole right kidney. Left kidney unremarkable. No acute findings in the liver, spleen, adrenals or pancreas. No calcified gallstones. CONCLUSION: 1. Free intraperitoneal air of unknown etiology. On the supine view most of the free air is around th e gastrostomy tube and tip of the nasogastric tube as discussed above. 2. Mild to moderate ascites. Moderate anasarca. 3. Moderate bilateral effusions with basilar atelectasis. 4. Nonobstructing right renal calculus. Hay catheter in bladder. Elbert Carrasquillo MD on January 02, 2018 at 22:00 Board Certified Radiologist. This report was verified electronically.
[2018-01-03] VITALS (16 sets, daily range): BP systolic 104–126; BP diastolic 57–68; PULSE 74–94; RESP 18; TEMP 97.4–98.4; O2SAT 94–100
[2018-01-03] MEDS: VANCOMYCIN INJ 1,500 MG in SODIUM CHLORID 0.9% 500 ML INJ 500 ML IV SCH (03:40)
[2018-01-03] MEDS: MEROPENEM INJ 1,000 MG in SODIUM CHLORIDE 0.9% INJ 100 ML IV SCH ×3 (03:40→21:30)
--- NOTE | 2018-01-03 03:48 | RADRPT ---
EXAM DATE/TIME: 01/03/2018 02:08 [facility] COMPARISON: CT ABDOMEN & PELVIS W/O CONTRAST, January 02, 2018, 21:38. CHEST SINGLE AP, January 01, 2018, 16:16. INDICATIONS : Respiratory distress. MEDICAL HISTORY : Cardiovascular disease. Cerebrovascular disease. Hypertension. SURGICAL HISTORY : Lymphoma. ENCOUNTER: Subsequent ACUITY: 1 week PAIN SCORE: Non-responsive. LOCATION: Bilateral chest FINDINGS: ETT tip well above the clem. Right internal jugular catheter tip in the distal superior vena cava. Gastric tube traverses the [id number]. Increasing consolidation in the left lower lobe with los s of delineation of two thirds of the left hemidiaphragm. Hazy opacity in the right lower chest is m ore prominent than on prior examination suggesting enlarging pleural effusion. CONCLUSION: Increasing left lower lobe consolidation and increasing right pleural effusion. Siva Cooley MD on January 03, 2018 at 3:44 Board Certified Radiologist. This report was verified electronically.
[2018-01-03 04:58] LABS: HEMATOCRIT 22.2 % (39.0-51.0); HEMOGLOBIN 7.5 GM/DL (13.0-17.0); MEAN CELL VOLUME 83.1 FL (80.0-100.0); MEAN CORPUSCULAR HEMOGLOBIN 28.1 PG (27.0-34.0); MEAN CORPUSCULAR HGB CONC 33.8 % (32.0-36.0); MEAN PLATELET VOLUME 9.5 FL (7.0-11.0); PLATELET COUNT 42 TH/MM3 (150-450); RED BLOOD COUNT 2.67 MIL/MM3 (4.50-5.90); RED CELL DISTRIBUTION WIDTH 18.7 % (11.6-17.2)
[2018-01-03] MEDS: PROPOFOL 1000 MG/100 ML INJ 100 ML IV PRN ×3 (05:17→21:30)
[2018-01-03 05:31] LABS: ALBUMIN 1.2 GM/DL (3.4-5.0); BICARBONATE 29.8 MEQ/L (21.0-32.0); CALCIUM 7.3 MG/DL (8.5-10.1); CALCIUM-PROTEIN CORRECTED 9.1 MG/DL (8.5-10.1); CREATININE 1.31 MG/DL (0.60-1.30); MAGNESIUM 1.9 MG/DL (1.5-2.5); PHOSPHORUS 2.2 MG/DL (2.5-4.9); TOTAL BILIRUBIN ADULT 0.3 MG/DL (0.2-1.0); TOTAL PROTEIN 4.1 GM/DL (6.4-8.2)
--- NOTE | 2018-01-03 07:36 | HHI.CCPN ---
Subjective Remarks/Hospital Course 01/01: 72-year-old gentleman with history of hypertension, hyperlipidemia and previous CVA, COPD, now newly diagnosed with anaplastic large cell non-Hodgkin' s lymphoma now transferred from [facility] on 12/23 for further treatment. On 12/25 patient received chemotherapy -CHOP regimen. Hospitalization further significant for PEG placement due to malnutrition and lack of appetite and thoracentesis for pleural effusion. Patient was being followed by pulmonary, cardiology and hematology services. Over the night patient had increased O2 requirements with high tube feed residual and concern for aspiration. A rapid response was called earlier this afternoon for worsening hypoxia despite NRM. Patient was emergently intubated and upon intubation he was found to have significant amount of tube feeds in the airway. An NG tube was placed on suction with 750 cc suctioned from the stomach. Patient was started on midazolam and fentanyl drips and phenylephrine for BP support. Patient was seen immediately on ICU arrival, 100% O2 with SPO2 100%. Patient requires 20 mics per minute of phenylephrine infusion. He is intubated and sedated, unresponsive. 01/02: No events over the night. Patient remains critically ill. He is currently sedated and intubated. He remains on phenylephrine at 80 mics per minute. FiO2 down to 0.6. T-max 98.6, I/O 1550/400. 01/03: Patient did well over the night. Norepinephrine weaned off. FiO2 currently at 0.5. Patient remains on a PEEP of 10. Sedation accomplished with propofol and fentanyl. Tmax 98.4. Objective Vital Signs Date Time Temp Pulse Resp B/P (MAP) Pulse Ox O2 Delivery O2 Flow Rate FiO2 01/03/18 04:00 50 01/03/18 04:00 98.4 74 18 126/60 (82) 100 01/02/18 19:00 Mechanical Ventilator 2.00 Intake and Output 01/03/18 01/03/18 01/04/18 08:00 16:00 00:00 Intake Total 200 ml Output Total 850 ml Balance -650 ml Result Diagram: 01/03/18 0355 01/03/18 0355 Other Results Microbiology Date/Time Source Procedure Growth Status 01/01/18 17:15 Urine Clean Catch Legionella Antigen - Final PRESUMPTIVE NEGATIVE FOR LEGIONELLA P... Complete 01/01/18 17:15 Urine Clean Catch Streptococcus pneumoniae Antigen (M - Final PRESUMPTIVE NEGATIVE FOR STREPTOCOCCU... Complete Laboratory Tests Test 01/02/18 09:16 01/03/18 04:25 Blood Gas Puncture Site RT RADIAL RT RADIAL Blood Gas Patient Temperature 98.6 98.6 Blood Gas HCO3 29 mmol/L (22-26) 28 mmol/L (22-26) Blood Gas Base Excess 4.0 mmol/L (-2-2) 3.3 mmol/L (-2-2) Blood Gas Oxygen Saturation 97 % (90-100) 94 % (90-100) Arterial Blood pH 7.40 (7.380-7.420) 7.40 (7.380-7.420) Arterial Blood Partial Pressure CO2 47 mmHg (38-42) 46 mmHg (38-42) Arterial Blood Partial Pressure O2 109 mmHg (61-120) 75 mmHg (61-120) Arterial Blood Oxygen Content 16.1 Vol % (12.0-20.0) 10.0 Vol % (12.0-20.0) Arterial Blood Carboxyhemoglobin 1.1 % (0-4) 1.3 % (0-4) Arterial Blood Methemoglobin 0.7 % (0-2) 0.8 % (0-2) Blood Gas Hemoglobin 11.8 G/DL (12.0-16.0) 7.5 G/DL (12.0-16.0) Oxygen Delivery Device VENTILATOR VENTILATOR Blood Gas Ventilator Setting SEE COMMENTS PRVC/AC Blood Gas Inspired Oxygen 60 % 50 % Imaging Last Impressions Chest X-Ray 01/03/18 0600 Signed Impressions: Service Date/Time: December 02:08 - CONCLUSION: Increasing left lower lobe consolidation and increasing right pleural effusion. Siva Cooley MD Abdomen/Pelvis CT 01/02/18 0000 Signed Impressions: Service Date/Time: Tuesday, January 02, 2018 21:38 - CONCLUSION: 1. Free intraperitoneal air of unknown etiology. On the supine view most of the free air is around the gastrostomy tube and tip of the nasogastric tube as discussed above. 2. Mild to moderate ascites. Moderate anasarca. 3. Moderate bilateral effusions with basilar atelectasis. 4. Nonobstructing right renal calculus. Hay catheter in bladder. Elbert Carrasquillo MD Chest CT 12/30/17 0000 Signed Impressions: Service Date/Time: Saturday, December 30, 2017 21:13 - CONCLUSION: 1. Free intraperitoneal air in the upper abdomen of uncertain etiology. There is a gastrostomy present. 2. Moderate bilateral pleural effusions with compressive atelectasis. Patchy air space consolidation in the right upper lobe. 3. Moderate anasarca and ascites. 4. Findings called to the floor at the time of dictation. Elbert Carrasquillo MD Chest Ultrasound 12/27/17 0000 Signed Impressions: Service Date/Time: December 21:39 - CONCLUSION: Large left pleural effusion and would be amenable to thoracentesis. Frandy was made on the overlying skin. Andres Parekh MD Bone Biopsy CT 12/25/17 1142 Signed Impressions: Service Date/Time: Monday, December 25, 2017 12:32 - CONCLUSION: 1. Uncomplicated CT guided bone marrow aspirate. 2. Uncomplicated CT guided bone marrow biopsy. Lee Mijares MD CT Angiography 12/25/17 0000 Signed Impressions: Service Date/Time: Monday, December 25, 2017 09:26 - CONCLUSION: 1. No CT evidence for pulmonary artery embolism. 2. Moderate to large bilateral pleural effusions with associated compressive atelectasis at the lung bases. 3. 8mm nodule in the right middle lobe. Followup CT examination may be performed at 6 months to document stability if this has not been evaluated previously. 4. Very mildly prominent mediastinal and hilar nodes and partially imaged upper abdominal lymphadenopathy in this patient with history of lymphoma. Miguel Ashton MD Objective Remarks General - elderly gentleman intubated, sedated, ill-appearing HEENT - pupils equal, reactive, sclerae anicteric, neck supple, no rigidity, neck veins distended, + ETT, + NGT, + LIJ CVC (01/01) -site clean CV - irregular S1 and S2, no murmurs Chest - coarse breath sounds bilateral, good air entry, and no wheezes, Infuse-a -Port right chest -site clean Abdomen - soft, obese, non-tender, BS present, no hepatomegaly, no splenomegaly , + PEG Extremities - well-perfused, warm, 2+ edema, + peripheral pulses Neuro - limited, intubated, sedated, pupils are equal and reactive, grimaces to painful stimuli A/P Assessment and Plan 1. Acute hypoxic and hypercapnic respiratory failure - slow improvement in O2 requirements, currently down to 0.5 FiO2 but PEEP remains at 10 2. Likely aspiration pneumonia 3. Circulatory shock, likely septic vs med induced, requiring low-dose pressor -weaned off vasopressors 4. Neutropenia with ANC count less than 500 -worsening 5. NHL, received CHOP therapy on 12/25 6. Sacral decubitus 7. COPD 8. Hypokalemia -repleting 9. Hypernatremia - likely iatrogenic 10. Free air in the abdomen. On exam abdomen is soft and appears nontender 1. Continue PRVC at current vent settings. PIP 23, patient synchronized with the vent, no auto PEEP 2. Vent bundle and bronchodilators 3. Continue meropenem and Vanco. Micafungin and added yesterday by ID 4. Norepinephrine if needed to keep map above 65 5. Continue sedation with propofol and fentanyl for a RASS of -2 6. IV hydration with LR 7. We will ask GI to reconsult regarding free air in the abdomen. Is secondary to gastrostomy tube placement? 8. If worsening pressor requirements will start stress dose steroids 9. Neupogen per onc. Will defer transfusion to onc as well 10. GI and DVT prophylaxis I spent 32 minutes of critical care time managing ventilator, fluids, reviewing data and ordering labs, discussing with nursing staff. Patient is critically ill with hypoxic respiratory failure, aspiration pneumonia , septic in a severely immunocompromised host and he is at extremely high risk for further deterioration and . I discussed extensively yesterday with [id number] and I updated her regarding patient's critical condition. Didier Montoya MD Jan 03, 2018 07:36
[2018-01-03] MEDS: INSULIN ASPART SUPPLEMENTAL SCALE SQ SCH ×4 (08:00→21:00)
[2018-01-03] MEDS: CHLORHEXIDINE 0.12% (ORAL KIT) 15 ML CUP MT SCH ×2 (08:00→21:30)
[2018-01-03] MEDS: RESP: ALBUTEROL 2.5 MG/IPRATROPIUM 0.5 MG NEB (SCH) NEB ×2 (08:28→21:59)
[2018-01-03] MEDS: MEGESTROL ACETATE SUSP 400 MG/10 ML CUP PO SCH (08:29)
[2018-01-03] MEDS: predniSONE 10 MG TAB PO SCH ×2 (08:29→21:00)
[2018-01-03] MEDS: MULTIVITAMIN TAB PO SCH (08:30)
[2018-01-03] MEDS: ALLOPURINOL 300 MG TAB PO SCH (08:30)
[2018-01-03] MEDS: guaiFENesin E.R. 600 MG TAB PO SCH ×2 (08:30→21:00)
[2018-01-03] MEDS: PANTOPRAZOLE SOD 40 MG DELAYED RELEASE TAB PO SCH ×2 (08:30→21:00)
[2018-01-03] MEDS: ATORVASTATIN 80 MG TAB PO SCH (08:30)
[2018-01-03] MEDS: SODIUM CHLORIDE 0.9% FLUSH 10 ML FLUSH IV FLUSH SCH ×2 (08:31→21:00)
[2018-01-03] MEDS: ASPIRIN EC 81 MG TABEC PO SCH (08:31)
[2018-01-03] MEDS: DOCUSATE SODIUM 50 MG/SENNA 8.6 MG TAB PO SCH ×2 (08:32→21:00)
[2018-01-03] MEDS ORDERED: SODIUM CHLOR 0.9% 250 ML INJ 250 ML IV ONE (08:45)
[2018-01-03 09:22] LABS: MONOCYTES 100 % (0-8)
[2018-01-03] MEDS: fentaNYL DRIP 250 ML IV PRN (11:02)
--- NOTE | 2018-01-03 11:26 | HHI.IDPN ---
Note Infectious Disease Note Patient remains on the ventilator. Sedated. Levophed was discontinued. Blood pressure stable. Afebrile. Sputum culture has immature growth of gram-negative triston. Clear secretions suctioned from the ET tube. Valentine colored fluid suctioned via the PEG tube and NG tube. Patient was not following commands when sedation was weaned earlier. White blood cell count is 0. Platelet counts and hemoglobin also decreased. 72-year-old white male who was diagnosed with lymphoma. The patient was noted to have become ill 2 months ago. He was noted to have cough and he was given 3 rounds of oral antibiotics without improvement of the cough. Subsequent workup revealed mediastinal adenopathy and other areas of adenopathy, and a biopsy of the lesion of the neck came back showing lymphoma. During his stay at [facility], he had no fever. He was given antibiotics. An Infusaport was placed on 12/20 for anticipated chemotherapy. PAST MEDICAL HISTORY: Stage IIIB anaplastic large cell lymphoma, COPD, hypertension, hyperlipidemia, history of CVA without residual deficits, nonsustained V-tach at [facility], neuropathy of the lower extremities, back surgery, Infusaport placement on 12/20/2017. ALLERGIES: HYDROCODONE. Antibiotics Meropenem. Vancomycin. Micafungin. MEDICATIONS: Current Medications Medications (Trade) Dose Ordered Sig/Candace Route PRN Reason Start Time Stop Time Status Last Admin Dose Admin Sodium Chloride (NS Flush) 2 ml UNSCH PRN IV FLUSH FLUSH AFTER USING IV ACCESS 12/22/17 18:15 Sodium Chloride (NS Flush) 2 ml BID IV FLUSH 12/22/17 21:00 01/03/18 08:31 Ondansetron HCl (Zofran Inj) 4 mg Q6H PRN IVP NAUSEA OR VOMITING 12/22/17 18:15 01/01/18 10:02 Naloxone HCl (Narcan Inj) 0.4 mg UNSCH PRN IV PUSH SEE LABEL COMMENTS 12/22/17 18:15 Senna/Docusate Sodium (Mary Kya-Colace) 1 tab BID PO 12/22/17 21:00 01/02/18 09:00 Magnesium Hydroxide (Milk Of Magnesia Liq) 30 ml Q12H PRN PO Mild constipation 12/22/17 18:15 Sennosides (Senokot) 17.2 mg Q12H PRN PO Moderate constipation 12/22/17 18:15 Lactulose (Lactulose Liq) 30 ml DAILY PRN PO SEVERE CONSITIPATION 12/22/17 18:15 Albuterol/ Ipratropium (Duoneb Neb) 1 ampule Q4HR NEB PRN NEB SOB/WHEEZING 12/22/17 20:15 01/01/18 10:08 Zolpidem Tartrate (Ambien) 5 mg HS PRN PO INSOMNIA 12/22/17 20:15 12/26/17 20:30 Pantoprazole Sodium (Protonix) 40 mg Q12HR PO 12/22/17 21:00 01/01/18 08:52 Megestrol Acetate (Megace Liq) 800 mg DAILY PO 12/23/17 09:00 01/03/18 08:29 Budesonide/ Formoterol Fumarate (Symbicort 160-4.5 Mcg Inh) 1 puff Q12HR INH 12/22/17 21:00 01/01/18 08:53 Aspirin (Ecotrin Ec) 81 mg DAILY PO 12/23/17 09:00 01/01/18 08:52 Atorvastatin Calcium (Lipitor) 80 mg DAILY PO 12/23/17 09:00 01/03/18 08:30 Multivitamins (Theragran) 1 tab DAILY PO 12/23/17 09:00 01/03/18 08:30 Heparin Sodium (Porcine) (Heparin Central Flush) 500 units UNSCH IV FLUSH 12/22/17 20:30 Sodium Chloride (NS Flush) 5 ml UNSCH PRN IVF SEE PROTOCOL 12/22/17 20:30 Heparin Sodium (Porcine) (Heparin Central Flush) 250 units UNSCH PRN IV FLUSH SEE PROTOCOL 12/22/17 20:30 12/27/17 20:27 Dextrose (D50w (Vial) Inj) 50 ml UNSCH PRN IV PUSH HYPOGLYCEMIA-SEE COMMENTS 12/22/17 20:30 Glucagon (Glucagon Inj) 1 mg UNSCH PRN OTHER HYPOGLYCEMIA-SEE COMMENTS 12/22/17 20:30 Insulin Aspart (NovoLOG SUPPLEMENTAL SCALE) 1 ACHS SLIDING SCALE SQ 12/22/17 21:00 01/01/18 21:00 Guaifenesin/ Dextromethorphan (Robitussin Dm 200-20 Mg/10 ml Liq) 10 ml Q4H PRN PO cough interfering with rest 12/22/17 21:00 12/26/17 18:27 Guaifenesin (Mucinex Er) 600 mg BID PO 12/23/17 21:00 01/01/18 08:52 Benzonatate (Tessalon) 100 mg TID PRN PO cough 12/25/17 12:00 Allopurinol (Zyloprim) 300 mg DAILY PO 12/26/17 09:00 01/03/18 08:30 Acetaminophen (Tylenol) 650 mg Q4H PRN PO FEVER>[id number] 12/26/17 14:45 12/26/17 20:32 Pharmacy Profile Note 0 ml @ 0 mls/hr UNSCH OTHER 12/27/17 12:45 Vancomycin HCl 1500 mg/Sodium Chloride 515 ml @ 250 mls/hr Q12H IV 12/27/17 15:00 01/03/18 03:40 Morphine Sulfate (Morphine Inj) 2 mg Q2HR PRN IV PUSH pain3-5 12/27/17 15:30 12/31/17 21:18 Morphine Sulfate (Morphine Inj) 4 mg Q2HR PRN IV PUSH PAIN SCALE 6 TO 8 12/27/17 15:45 12/29/17 03:43 Morphine Sulfate (Morphine Inj) 6 mg Q2HR PRN IV PUSH pain9-10 12/27/17 17:15 Acetaminophen (Tylenol) 650 mg Q4H PRN PO SEE LABEL COMMENTS 12/31/17 16:30 12/31/17 21:19 Diphenhydramine HCl (Benadryl) 25 mg Q4H PRN PO SEE LABEL COMMENTS 12/31/17 16:30 Calcium Carbonate (Tums Chew) 500 mg Q12HR PRN CHEW indigestion 12/31/17 16:15 01/01/18 05:27 Prednisone (Deltasone) 10 mg BID PO 01/01/18 21:00 01/03/18 08:29 Fentanyl Citrate 250 ml @ 0 mls/hr TITRATE PRN IV SEDATION 01/01/18 15:15 01/03/18 11:02 Terbutaline Sulfate (Brethine Inj) 1 mg UNSCH PRN SQ FOR EXTRAVASATION PROTOCOL 01/01/18 16:45 Chlorhexidine Gluconate (Peridex 0.12% Liq) 15 ml BID@08,20 MT 01/01/18 20:00 01/02/18 20:46 Norepinephrine Bitartrate 250 ml @ 7.5 mls/hr TITRATE PRN IV Blood pressure management 01/01/18 17:00 01/02/18 21:09 Terbutaline Sulfate (Brethine Inj) 1 mg UNSCH PRN SQ For Extravasation 01/01/18 17:00 Meropenem 1000 mg/ Sodium Chloride 100 ml @ 200 mls/hr Q8H IV 01/01/18 20:00 01/03/18 03:40 Lactated Ringer's 1,000 ml @ 999 mls/hr Q1H1M IV 01/01/18 17:30 Filgrastim 480 mcg/Dextrose 26.6 ml @ 53.2 mls/hr DAILY@14 IV 01/02/18 14:00 01/02/18 15:08 Potassium Chloride 100 ml @ 50 mls/hr Q2H PRN IV For Potassium 2.8 - 3.2 mEq/L 01/02/18 07:30 Potassium Chloride 100 ml @ 50 mls/hr Q2H PRN IV For Potassium 2.8 - 3.2 mEq/L 01/02/18 07:30 01/02/18 10:34 Potassium Bicarb/ Potassium Chloride (K-Lyte Cl Eff) 50 meq UNSCH PRN PO For Potassium 3.3 - 3.5 mEq/L 01/02/18 07:30 Potassium Chloride 100 ml @ 25 mls/hr UNSCH PRN IV For Potassium 3.3 - 3.5 mEq/L 01/02/18 07:30 Potassium Chloride 100 ml @ 50 mls/hr Q2H PRN IV For Potassium 3.3 - 3.5 mEq/L 01/02/18 07:30 Magnesium Sulfate 4 gm/Sodium Chloride 100 ml @ 50 mls/hr UNSCH PRN IV For Magnesium 0.9 - 1.1 mg/dL 01/02/18 07:30 Magnesium Oxide (Mag-Ox) 800 mg UNSCH PRN PO For Magnesium 1.2 - 1.6 mg/dL 01/02/18 07:30 Magnesium Sulfate 2 gm/Sodium Chloride 100 ml @ 50 mls/hr UNSCH PRN IV For Magnesium 1.2 - 1.6 mg/dL 01/02/18 07:30 Potassium Phosphate (K-Phos) 2,000 mg Q4H PRN PO For Phosphorus < 2.5 mg/dL 01/02/18 07:30 Sodium Phosphate 30 mmol/Sodium Chloride 250 ml @ 42 mls/hr UNSCH PRN IV For Phosphorus < 2.5 mg/dL 01/02/18 07:30 Potassium Phosphate (K-Phos) 2,000 mg UNSCH PRN PO/TUBE SEE LABEL COMMENTS 01/02/18 07:30 Potassium Phosphate 30 mmol/ Sodium Chloride 260 ml @ 42 mls/hr UNSCH PRN IV SEE LABEL COMMENTS 01/02/18 07:30 Propofol 100 ml @ 2.757 mls/ hr TITRATE PRN IV SEDATION 01/02/18 11:15 01/03/18 09:35 Micafungin Sodium 100 mg/Sodium Chloride 100 ml @ 100 mls/hr Q24H IV 01/02/18 13:00 01/02/18 13:00 Albuterol/ Ipratropium (Duoneb Neb) 1 ampule Q6HR NEB NEB 01/03/18 10:00 01/03/18 08:28 Sodium Chloride 250 ml @ 15 mls/hr ONCE ONCE IV 01/03/18 08:45 01/04/18 01:24 OBJECTIVE: Vital Signs Date Time Temp Pulse Resp B/P (MAP) Pulse Ox O2 Delivery O2 Flow Rate FiO2 01/03/18 08:28 100 40 01/03/18 08:00 98.2 85 18 123/58 (79) 100 01/03/18 08:00 40 01/03/18 07:00 86 01/03/18 07:00 100 Mechanical Ventilator 60 01/03/18 04:00 50 01/03/18 04:00 98.4 74 18 126/60 (82) 100 01/03/18 03:40 100 50 01/03/18 00:12 97 50 01/03/18 00:00 50 01/03/18 00:00 98.3 85 18 116/68 (84) 98 01/02/18 23:00 87 01/02/18 21:09 88 110/60 01/02/18 20:31 100 50 01/02/18 20:00 50 01/02/18 20:00 98.2 85 16 103/62 (76) 99 01/02/18 19:00 99 Mechanical Ventilator 2.00 60 01/02/18 16:00 97.9 92 21 117/69 (85) 100 01/02/18 16:00 50 01/02/18 15:00 93 01/02/18 14:30 97 50 01/02/18 12:00 97.7 92 21 98/59 (72) 96 01/02/18 12:00 50 01/02/18 11:40 82 111/58 Laboratory Tests Test 01/01/18 17:12 01/02/18 06:00 01/03/18 03:55 White Blood Count 0.1 TH/MM3 0.1 TH/MM3 0.0 TH/MM3 Red Blood Count 3.38 MIL/MM3 3.06 MIL/MM3 2.67 MIL/MM3 Hemoglobin 9.4 GM/DL 8.6 GM/DL 7.5 GM/DL Hematocrit 28.5 % 25.8 % 22.2 % Mean Corpuscular Volume 84.2 FL 84.3 FL 83.1 FL Mean Corpuscular Hemoglobin 27.9 PG 28.0 PG 28.1 PG Mean Corpuscular Hemoglobin Concent 33.1 % 33.2 % 33.8 % Red Cell Distribution Width 19.2 % 18.8 % 18.7 % Platelet Count 109 TH/MM3 81 TH/MM3 42 TH/MM3 Mean Platelet Volume 8.4 FL 8.4 FL 9.5 FL CBC Comment AUTO DIFF AUTO DIFF AUTO DIFF Differential Total Cells Counted 28 4 1 Neutrophils % (Manual) 93 % 50 % Lymphocytes % 7 % 50 % Neutrophils # (Manual) 0.1 TH/MM3 0.1 TH/MM3 0.0 TH/MM3 Differential Comment FINAL DIFF MANUAL FINAL DIFF MANUAL AUTO DIFF CONFIRMED Platelet Estimate LOW LOW LOW Platelet Morphology Comment NORMAL NORMAL ENLARGED Monocytes % 100 % Laboratory Tests Test 01/01/18 17:12 01/02/18 06:00 01/02/18 15:48 01/03/18 03:55 Blood Urea Nitrogen 40 MG/DL 36 MG/DL 38 MG/DL 39 MG/DL Creatinine 0.94 MG/DL 0.86 MG/DL 0.96 MG/DL 1.31 MG/DL Random Glucose 224 MG/DL 115 MG/DL 145 MG/DL 158 MG/DL Total Protein 4.6 GM/DL 4.4 GM/DL 4.1 GM/DL Albumin 1.6 GM/DL 1.2 GM/DL Calcium Level 6.8 MG/DL 7.4 MG/DL 7.6 MG/DL 7.3 MG/DL Phosphorus Level 3.0 MG/DL 2.4 MG/DL 2.3 MG/DL 2.2 MG/DL Magnesium Level 2.1 MG/DL 2.1 MG/DL 1.9 MG/DL Alkaline Phosphatase 70 U/L 58 U/L Aspartate Amino Transf (AST/SGOT) 26 U/L 12 U/L Alanine Aminotransferase (ALT/SGPT) 51 U/L 29 U/L Total Bilirubin 0.5 MG/DL 0.3 MG/DL Sodium Level 148 MEQ/L 151 MEQ/L 148 MEQ/L 151 MEQ/L Potassium Level 2.7 MEQ/L 2.8 MEQ/L 3.9 MEQ/L 3.4 MEQ/L Chloride Level 112 MEQ/L 115 MEQ/L 114 MEQ/L 116 MEQ/L Carbon Dioxide Level 29.6 MEQ/L 29.1 MEQ/L 27.5 MEQ/L 29.8 MEQ/L Anion Gap 6 MEQ/L 7 MEQ/L 7 MEQ/L 5 MEQ/L Estimat Glomerular Filtration Rate 79 ML/MIN 87 ML/MIN 77 ML/MIN 54 ML/MIN Lactic Acid Level 1.7 mmol/L Protein Corrected Calcium 8.1 MG/DL 9.0 MG/DL 9.1 MG/DL Troponin I 0.02 NG/ML Microbiology Date/Time Source Procedure Growth Status 01/01/18 17:57 Blood Peripheral Aerobic Blood Culture - Preliminary NO GROWTH IN 2 DAYS Resulted 01/01/18 17:57 Blood Peripheral Anaerobic Blood Culture - Preliminary NO GROWTH IN 2 DAYS Resulted 01/01/18 17:52 Blood Peripheral Aerobic Blood Culture - Preliminary NO GROWTH IN 2 DAYS Resulted 01/01/18 17:52 Blood Peripheral Anaerobic Blood Culture - Preliminary NO GROWTH IN 2 DAYS Resulted 01/01/18 17:15 Sputum Endotracheal Gram Stain - Final Resulted 01/01/18 17:15 Sputum Endotracheal Sputum Culture - Preliminary IMMATURE GROWTH - REINCUBATE Resulted 01/01/18 17:15 Urine Catheterized Urine Urine Culture - Final NO GROWTH IN 48 HOURS. Complete 01/01/18 17:15 Urine Clean Catch Legionella Antigen - Final PRESUMPTIVE NEGATIVE FOR LEGIONELLA P... Complete 01/01/18 17:15 Urine Clean Catch Streptococcus pneumoniae Antigen (M - Final PRESUMPTIVE NEGATIVE FOR STREPTOCOCCU... Complete Microbiology Date/Time Source Procedure Growth Status 12/28/17 12:15 Fluid Pleural Fluid Fungal Smear - Final NO FUNGAL ELEMENTS SEEN. Resulted 12/28/17 12:15 Fluid Pleural Fluid Fungal Culture Pending Resulted 12/28/17 12:15 Fluid Pleural Fluid Acid Fast Stain - Final NO ACID FAST BACILLI SEEN Resulted 12/28/17 12:15 Fluid Pleural Fluid Mycobacterial Culture Pending Resulted 12/28/17 12:15 Fluid Pleural Fluid Gram Stain - Final Complete 12/28/17 12:15 Fluid Pleural Fluid Body Fluid Culture - Final NO GROWTH IN 72 HRS.--AEROBICALLY OR ... Complete IMAGING: Chest X-Ray 01/03/1800 Signed Impressions: Service Date/Time: December 02:08 - CONCLUSION: Increasing left lower lobe consolidation and increasing right pleural effusion. Siva Cooley MD Abdomen/Pelvis CT 01/02/18 0000 Signed Impressions: Service Date/Time: Tuesday, January 02, 2018 21:38 - CONCLUSION: 1. Free intraperitoneal air of unknown etiology. On the supine view most of the free air is around the gastrostomy tube and tip of the nasogastric tube as discussed above. 2. Mild to moderate ascites. Moderate anasarca. 3. Moderate bilateral effusions with basilar atelectasis. 4. Nonobstructing right renal calculus. Hay catheter in bladder. Elbert Carrasquillo MD Chest X-Ray 01/01/18 0600 Signed Impressions: Service Date/Time: Monday, January 01, 2018 09:12 - CONCLUSION: 1. Bilateral pleural effusions unchanged from previous exam. 2. [id number] in good position. 3. Diffuse interstitial prominence probably chronic in etiology. This is unchanged from prior as well. Timothy Carrero MD Chest X-Ray 12/30/17 0000 Signed Impressions: Service Date/Time: Saturday, December 30, 2017 11:55 - CONCLUSION: Stable exam consistent with bilateral pleural effusions and/or overlying atelectasis. Radha Polanco MD Chest CT 12/30/17 0000 Signed Impressions: Service Date/Time: Saturday, December 30, 2017 21:13 - CONCLUSION: 1. Free intraperitoneal air in the upper abdomen of uncertain etiology. There is a gastrostomy present. 2. Moderate bilateral pleural effusions with compressive atelectasis. Patchy air space consolidation in the right upper lobe. 3. Moderate anasarca and ascites. 4. Findings called to the floor at the time of dictation. Elbert Carrasquillo MD PHYSICAL EXAMINATION: GENERAL: Sedated on the ventilator. HEENT: No icterus. No conjunctival erythema. NECK: Supple. No adenopathy. No swelling. LUNGS: Bilateral basilar rhonchi. HEART: Regular S1 and S2. No murmurs, rubs or gallops. ABDOMEN: Markedly diminished bowel sounds, soft, nontender. EXTREMITIES: No clubbing or cyanosis, trace edema of the lower extremities. SKIN: No rash. NEUROLOGIC: Unable to assess. PSYCHIATRIC: Unable to assess. IMPRESSION: 1. Pneumonia. Bibasilar lung infiltrates. Preliminary cultures showing gram- negative bacteria. Aspiration with decline in respiratory status. 2. Acute respiratory failure. Intubated on the ventilator. 3. Bilateral pleural effusions. Post thoracentesis. 4. Lymphoma. Treated with chemotherapy. 5. Leukocytosis likely secondary to lymphoma on admission. White blood cell count remains significantly depressed. Patient post chemotherapy. Patient now has pancytopenia. 5. Decreased nutrition in patient with anorexia and now post percutaneous endoscopic gastrostomy placement. Tube feeds placed on hold because of concern for aspiration Patient still very critically ill. RECOMMENDATIONS: 1. Continue meropenem. 2. Continue vancomycin. 3. Continue micafungin. 4. Monitor blood culture. 5. Monitor sputum culture. 6. Monitor clinical status. 7. Continue to follow the blood counts. I have discussed the plans with patient's and RN. I have called microbiology about the sputum culture. Growth is not yet sufficient to identify the bacteria. Lenin Salomon MD Jan 03, 2018 11:26
[2018-01-03] MEDS: MICAFUNGIN INJ 100 MG in SODIUM CHLORIDE 0.9% INJ 100 ML IV SCH (12:23)
--- NOTE | 2018-01-03 13:03 | PD.CONS ---
HPI History of Present Illness This is a 72 year old M with PMH significant for HTN, HLD, previous CVA, COPD and newly diagnosed anaplastic large cell lymphoma. Pt arrived to [place] on December 22, was transferred from [facility] for chemotherapy. Our service was initially consulted for PEG tube placement which was done on December 24. EGD findings --> Ulcer in the first portion of the duodenum. Pt was previously on TF of Jevity 1.5 at 60 mL/hr x 24 hours. Per notes pt was found to have high residuals and therefore, TF was discontinued. Pt was planned to be discharged to rehab facility, however, he began to have very low O2 sats despite NRB and required intubation with mechanical ventilation. During intubation pt was found to have tube feeding aspirated into his lungs. Our service has been reconsulted to further evaluated PEG tube due to CT abdomen and pelvis findings (01/02) --> Free intraperitoneal air of unknown etiology. On the supine view most of the free air is around the gastrostomy tube and tip of the OG tube. Mild to moderate ascites. Moderate anasarca. OG tube clamped at this time. PEG tube to LIWS with bile colored drainage, per sister in law at bedside it was stool colored yesterday. (Ny Villeda) PFSH Past Medical History NSVT while at [facility] CVA without residual deficits Hyperlipidemia Hypertension COPD Bilateral lower extremity neuropathy . Past Surgical History Port-A-Cath placed 12/20/2017 Back surgery [facility] in [place] . (Ny Villeda) Coded Allergies: hydrocodone (Verified Adverse Reaction, Mild, 12/22/17) Hallucinations Family History Father from lung cancer . Social History Tobacco: smoked from age 11 until age 55 about 1 1/2 PPD. Alcohol: denies Illicit Drugs: denies . (Ny Villeda) Review of Systems Unable to obtain (Ny Villeda) GI Exam Vitals I&O Vital Signs Date Time Temp Pulse Resp B/P (MAP) Pulse Ox O2 Delivery O2 Flow Rate FiO2 01/03/18 12:35 97.5 85 18 111/58 96 01/03/18 08:28 100 40 01/03/18 08:00 98.2 85 18 123/58 (79) 100 01/03/18 08:00 40 01/03/18 07:00 86 01/03/18 07:00 100 Mechanical Ventilator 60 01/03/18 04:00 50 01/03/18 04:00 98.4 74 18 126/60 (82) 100 01/03/18 03:40 100 50 01/03/18 00:12 97 50 01/03/18 00:00 50 01/03/18 00:00 98.3 85 18 116/68 (84) 98 01/02/18 23:00 87 01/02/18 21:09 88 110/60 01/02/18 20:31 100 50 01/02/18 20:00 50 01/02/18 20:00 98.2 85 16 103/62 (76) 99 01/02/18 19:00 99 Mechanical Ventilator 2.00 60 01/02/18 16:00 97.9 92 21 117/69 (85) 100 01/02/18 16:00 50 01/02/18 15:00 93 01/02/18 14:30 97 50 I/O 01/02/18 01/02/18 01/02/18 01/03/18 01/03/18 01/03/18 07:00 15:00 23:00 07:00 15:00 23:00 Intake Total 100 ml 725 ml 700 ml 300 ml 250 ml Output Total 1050 ml 420 ml 850 ml Balance -950 ml 725 ml 280 ml -550 ml 250 ml IV Total 100 ml 725 ml 700 ml 300 ml Tube Feeding 0 ml Blood Product IV Normal Saline Flush 250 ml Output Urine Total 1000 ml 260 ml 550 ml Gastric Drainage Total 50 ml 60 ml 100 ml Drainage Total 100 ml 200 ml # Bowel Movements 0 0 Imaging Last Impressions Chest X-Ray 01/03/18 0600 Signed Impressions: Service Date/Time: December 02:08 - CONCLUSION: Increasing left lower lobe consolidation and increasing right pleural effusion. Siva Cooley MD Abdomen/Pelvis CT 01/02/18 0000 Signed Impressions: Service Date/Time: Tuesday, January 02, 2018 21:38 - CONCLUSION: 1. Free intraperitoneal air of unknown etiology. On the supine view most of the free air is around the gastrostomy tube and tip of the nasogastric tube as discussed above. 2. Mild to moderate ascites. Moderate anasarca. 3. Moderate bilateral effusions with basilar atelectasis. 4. Nonobstructing right renal calculus. Hay catheter in bladder. Elbert Carrasquillo MD Chest CT 12/30/17 0000 Signed Impressions: Service Date/Time: Saturday, December 30, 2017 21:13 - CONCLUSION: 1. Free intraperitoneal air in the upper abdomen of uncertain etiology. There is a gastrostomy present. 2. Moderate bilateral pleural effusions with compressive atelectasis. Patchy air space consolidation in the right upper lobe. 3. Moderate anasarca and ascites. 4. Findings called to the floor at the time of dictation. Elbert Carrasquillo MD Chest Ultrasound 12/27/17 0000 Signed Impressions: Service Date/Time: December 21:39 - CONCLUSION: Large left pleural effusion and would be amenable to thoracentesis. Frandy was made on the overlying skin. Andres Parekh MD Bone Biopsy CT 12/25/17 1142 Signed Impressions: Service Date/Time: Monday, December 25, 2017 12:32 - CONCLUSION: 1. Uncomplicated CT guided bone marrow aspirate. 2. Uncomplicated CT guided bone marrow biopsy. Lee Mijares MD CT Angiography 12/25/17 0000 Signed Impressions: Service Date/Time: Monday, December 25, 2017 09:26 - CONCLUSION: 1. No CT evidence for pulmonary artery embolism. 2. Moderate to large bilateral pleural effusions with associated compressive atelectasis at the lung bases. 3. 8mm nodule in the right middle lobe. Followup CT examination may be performed at 6 months to document stability if this has not been evaluated previously. 4. Very mildly prominent mediastinal and hilar nodes and partially imaged upper abdominal lymphadenopathy in this patient with history of lymphoma. Miguel Ashton MD Laboratory Test 01/02/18 15:48 01/03/18 03:55 01/03/18 04:25 Blood Urea Nitrogen 38 MG/DL 39 MG/DL Creatinine 0.96 MG/DL 1.31 MG/DL Random Glucose 145 MG/DL 158 MG/DL Calcium Level 7.6 MG/DL 7.3 MG/DL Phosphorus Level 2.3 MG/DL 2.2 MG/DL Magnesium Level 2.1 MG/DL 1.9 MG/DL Sodium Level 148 MEQ/L 151 MEQ/L Potassium Level 3.9 MEQ/L 3.4 MEQ/L Chloride Level 114 MEQ/L 116 MEQ/L Carbon Dioxide Level 27.5 MEQ/L 29.8 MEQ/L Anion Gap 7 MEQ/L 5 MEQ/L Estimat Glomerular Filtration Rate 77 ML/MIN 54 ML/MIN White Blood Count 0.0 TH/MM3 Red Blood Count 2.67 MIL/MM3 Hemoglobin 7.5 GM/DL Hematocrit 22.2 % Mean Corpuscular Volume 83.1 FL Mean Corpuscular Hemoglobin 28.1 PG Mean Corpuscular Hemoglobin Concent 33.8 % Red Cell Distribution Width 18.7 % Platelet Count 42 TH/MM3 Mean Platelet Volume 9.5 FL CBC Comment AUTO DIFF Differential Total Cells Counted 1 Monocytes % 100 % Neutrophils # (Manual) 0.0 TH/MM3 Differential Comment AUTO DIFF CONFIRMED Platelet Estimate LOW Platelet Morphology Comment ENLARGED Total Protein 4.1 GM/DL Albumin 1.2 GM/DL Alkaline Phosphatase 58 U/L Aspartate Amino Transf (AST/SGOT) 12 U/L Alanine Aminotransferase (ALT/SGPT) 29 U/L Total Bilirubin 0.3 MG/DL Protein Corrected Calcium 9.1 MG/DL Blood Gas Puncture Site RT RADIAL Blood Gas Patient Temperature 98.6 Blood Gas HCO3 28 mmol/L Blood Gas Base Excess 3.3 mmol/L Blood Gas Oxygen Saturation 94 % Arterial Blood pH 7.40 Arterial Blood Partial Pressure CO2 46 mmHg Arterial Blood Partial Pressure O2 75 mmHg Arterial Blood Oxygen Content 10.0 Vol % Arterial Blood Carboxyhemoglobin 1.3 % Arterial Blood Methemoglobin 0.8 % Blood Gas Hemoglobin 7.5 G/DL Oxygen Delivery Device VENTILATOR Blood Gas Ventilator Setting PRVC/AC Blood Gas Inspired Oxygen 50 % Date/Time Source Procedure Growth Status 01/01/18 17:57 Blood Peripheral Aerobic Blood Culture - Preliminary NO GROWTH IN 2 DAYS Resulted 01/01/18 17:57 Blood Peripheral Anaerobic Blood Culture - Preliminary NO GROWTH IN 2 DAYS Resulted 12/28/17 12:15 Fluid Pleural Fluid Fungal Smear - Final NO FUNGAL ELEMENTS SEEN. Resulted 12/28/17 12:15 Fluid Pleural Fluid Fungal Culture Pending Resulted 01/01/18 17:15 Sputum Endotracheal Gram Stain - Final Resulted 01/01/18 17:15 Sputum Endotracheal Sputum Culture - Preliminary IMMATURE GROWTH - REINCUBATE Resulted 01/01/18 17:15 Urine Catheterized Urine Urine Culture - Final NO GROWTH IN 48 HOURS. Complete Physical Examination HEENT: Normocephalic; atraumatic CHEST: Respirations synchronized with vent. Mechanically ventilated via ETT CARDIAC: RRR ABDOMEN: Nondistended, soft, bowel sounds active. PEG tube to LIWS with bile colored drainage. SKIN: Normal; no rash; no jaundice. HUMAN RESOURCES OFFICE ASSISTANT: Sedated (Ny Villeda) Assessment and Plan Plan Initial consult Weight loss with new dx of naplastic large cell lymphoma- Tx from [facility] for oncology treatment Pancytopenia- Pt on Neupogen, Neutropenic precautions, antifungal and abx per ID (01/03) Reconsult for PEG tube eval EGD with PEG placement (12/24) --> Ulcer in the first portion of the duodenum. Otherwise normal Pt was on Tube feeding Jevity @ 60 mL/hr- stopped because pt was not tolerating. He became hypoxic, O2 not sustained despite NRB so was intubated, during intubation a significant amount of TF was noted to be aspirated. TF placed on hold. Unclear why pt has an OG tube, most likely placed during intubation. Abnormal CT findings --> Free intraperitoneal air of unknown etiology. On the supine view most of the free air is around the G-tbue and tip of OG tube. Mild to moderate ascites. Moderate anasarca. Currently PEG tube to LIWS with bile colored drainage, per sister in law at bedside, yesterday drainage was stool colored. Plan: - KUB with Gastrografin through PEG and SBFT - Protonix - PEG to LIWS - Further recommendations based on results of imaging Pt has been seen and examined by myself and Dr. Cao and this note is written on her behalf (Ny Villeda) Physician Comments seen, examined agree with above (Ct Cao MD) Ny Villeda Jan 03, 2018 13:03 Ct Cao MD Jan 03, 2018 15:26
[2018-01-03] MEDS ORDERED: DIATRIZOATE MEGLUM/DIATRIZOATE SOD 120 ML BTL (for RAD DIAG) PEG ONE (13:30)
--- NOTE | 2018-01-03 15:49 | PD.ONC.PN ---
Subjective Subjective Remarks Afebrile overnight Patient remains intubated and sedated Currently undergoing a small bowel series at bedside Objective Data Date Time Temp Pulse Resp B/P (MAP) Pulse Ox O2 Delivery O2 Flow Rate FiO2 01/03/18 12:50 97.4 80 18 115/58 95 01/03/18 12:35 97.5 85 18 111/58 96 01/03/18 12:00 98.0 84 18 106/57 (73) 95 01/03/18 12:00 40 01/03/18 08:28 100 40 01/03/18 08:00 98.2 85 18 123/58 (79) 100 01/03/18 08:00 40 01/03/18 07:00 86 01/03/18 07:00 100 Mechanical Ventilator 60 01/03/18 04:00 50 01/03/18 04:00 98.4 74 18 126/60 (82) 100 01/03/18 03:40 100 50 01/03/18 00:12 97 50 01/03/18 00:00 50 01/03/18 00:00 98.3 85 18 116/68 (84) 98 01/02/18 23:00 87 01/02/18 21:09 88 110/60 01/02/18 20:31 100 50 01/02/18 20:00 50 01/02/18 20:00 98.2 85 16 103/62 (76) 99 01/02/18 19:00 99 Mechanical Ventilator 2.00 60 01/02/18 16:00 97.9 92 21 117/69 (85) 100 01/02/18 16:00 50 01/03/18 01/03/18 01/03/18 07:00 15:00 23:00 Intake Total 300 ml 900 ml Output Total 850 ml Balance -550 ml 900 ml Result Diagram: 01/03/18 0355 01/03/18 0355 Laboratory Results Laboratory Tests Test 01/02/18 15:48 01/03/18 03:55 01/03/18 04:25 Blood Urea Nitrogen 38 MG/DL 39 MG/DL Creatinine 0.96 MG/DL 1.31 MG/DL Random Glucose 145 MG/DL 158 MG/DL Calcium Level 7.6 MG/DL 7.3 MG/DL Phosphorus Level 2.3 MG/DL 2.2 MG/DL Magnesium Level 2.1 MG/DL 1.9 MG/DL Sodium Level 148 MEQ/L 151 MEQ/L Potassium Level 3.9 MEQ/L 3.4 MEQ/L Chloride Level 114 MEQ/L 116 MEQ/L Carbon Dioxide Level 27.5 MEQ/L 29.8 MEQ/L Anion Gap 7 MEQ/L 5 MEQ/L Estimat Glomerular Filtration Rate 77 ML/MIN 54 ML/MIN White Blood Count 0.0 TH/MM3 Red Blood Count 2.67 MIL/MM3 Hemoglobin 7.5 GM/DL Hematocrit 22.2 % Mean Corpuscular Volume 83.1 FL Mean Corpuscular Hemoglobin 28.1 PG Mean Corpuscular Hemoglobin Concent 33.8 % Red Cell Distribution Width 18.7 % Platelet Count 42 TH/MM3 Mean Platelet Volume 9.5 FL CBC Comment AUTO DIFF Differential Total Cells Counted 1 Monocytes % 100 % Neutrophils # (Manual) 0.0 TH/MM3 Differential Comment AUTO DIFF CONFIRMED Platelet Estimate LOW Platelet Morphology Comment ENLARGED Total Protein 4.1 GM/DL Albumin 1.2 GM/DL Alkaline Phosphatase 58 U/L Aspartate Amino Transf (AST/SGOT) 12 U/L Alanine Aminotransferase (ALT/SGPT) 29 U/L Total Bilirubin 0.3 MG/DL Protein Corrected Calcium 9.1 MG/DL Blood Gas Puncture Site RT RADIAL Blood Gas Patient Temperature 98.6 Blood Gas HCO3 28 mmol/L Blood Gas Base Excess 3.3 mmol/L Blood Gas Oxygen Saturation 94 % Arterial Blood pH 7.40 Arterial Blood Partial Pressure CO2 46 mmHg Arterial Blood Partial Pressure O2 75 mmHg Arterial Blood Oxygen Content 10.0 Vol % Arterial Blood Carboxyhemoglobin 1.3 % Arterial Blood Methemoglobin 0.8 % Blood Gas Hemoglobin 7.5 G/DL Oxygen Delivery Device VENTILATOR Blood Gas Ventilator Setting PRVC/AC Blood Gas Inspired Oxygen 50 % Culture Results Microbiology Date/Time Source Procedure Growth Status 01/01/18 17:57 Blood Peripheral Aerobic Blood Culture - Preliminary NO GROWTH IN 2 DAYS Resulted 01/01/18 17:57 Blood Peripheral Anaerobic Blood Culture - Preliminary NO GROWTH IN 2 DAYS Resulted 01/01/18 17:52 Blood Peripheral Aerobic Blood Culture - Preliminary NO GROWTH IN 2 DAYS Resulted 01/01/18 17:52 Blood Peripheral Anaerobic Blood Culture - Preliminary NO GROWTH IN 2 DAYS Resulted 01/01/18 17:15 Sputum Endotracheal Gram Stain - Final Resulted 01/01/18 17:15 Sputum Endotracheal Sputum Culture - Preliminary IMMATURE GROWTH - REINCUBATE Resulted 3/20/18 17:15 Urine Catheterized Urine Urine Culture - Final NO GROWTH IN 48 HOURS. Complete 01/01/18 17:15 Urine Clean Catch Legionella Antigen - Final PRESUMPTIVE NEGATIVE FOR LEGIONELLA P... Complete 01/01/18 17:15 Urine Clean Catch Streptococcus pneumoniae Antigen (M - Final PRESUMPTIVE NEGATIVE FOR STREPTOCOCCU... Complete Imaging Studies Last 24 hours Impressions Chest X-Ray 01/03/18 0600 Signed Impressions: Service Date/Time: December 02:08 - CONCLUSION: Increasing left lower lobe consolidation and increasing right pleural effusion. Siva Cooley MD Administered Medications Medications (Trade) Dose Ordered Sig/Candace Route PRN Reason Start Time Stop Time Status Last Admin Dose Admin Sodium Chloride (NS Flush) 2 ml BID IV FLUSH 12/22/17 21:00 01/03/18 08:31 Ondansetron HCl (Zofran Inj) 4 mg Q6H PRN IVP NAUSEA OR VOMITING 12/22/17 18:15 01/01/18 10:02 Senna/Docusate Sodium (Mary Kay-Colace) 1 tab BID PO 12/22/17 21:00 01/02/18 09:00 Albuterol/ Ipratropium (Duoneb Neb) 1 ampule Q4HR NEB PRN NEB SOB/WHEEZING 12/22/17 20:15 01/01/18 10:08 Zolpidem Tartrate (Ambien) 5 mg HS PRN PO INSOMNIA 12/22/17 20:15 12/26/17 20:30 Pantoprazole Sodium (Protonix) 40 mg Q12HR PO 12/22/17 21:00 01/01/18 08:52 Megestrol Acetate (Megace Liq) 800 mg DAILY PO 12/23/17 09:00 01/03/18 08:29 Budesonide/ Formoterol Fumarate (Symbicort 160-4.5 Mcg Inh) 1 puff Q12HR INH 12/22/17 21:00 01/01/18 08:53 Aspirin (Ecotrin Ec) 81 mg DAILY PO 12/23/17 09:00 01/01/18 08:52 Atorvastatin Calcium (Lipitor) 80 mg DAILY PO 12/23/17 09:00 01/03/18 08:30 Multivitamins (Theragran) 1 tab DAILY PO 12/23/17 09:00 01/03/18 08:30 Heparin Sodium (Porcine) (Heparin Central Flush) 250 units UNSCH PRN IV FLUSH SEE PROTOCOL 12/22/17 20:30 12/27/17 20:27 Insulin Aspart (NovoLOG SUPPLEMENTAL SCALE) 1 ACHS SLIDING SCALE SQ 12/22/17 21:00 01/01/18 21:00 Guaifenesin/ Dextromethorphan (Robitussin Dm 200-20 Mg/10 ml Liq) 10 ml Q4H PRN PO cough interfering with rest 12/22/17 21:00 12/26/17 18:27 Guaifenesin (Mucinex Er) 600 mg BID PO 12/23/17 21:00 01/01/18 08:52 Allopurinol (Zyloprim) 300 mg DAILY PO 12/26/17 09:00 01/03/18 08:30 Acetaminophen (Tylenol) 650 mg Q4H PRN PO FEVER>100.0brhtgg2-5 12/26/17 14:45 12/26/17 20:32 Vancomycin HCl 1500 mg/Sodium Chloride 515 ml @ 250 mls/hr Q12H IV 12/27/17 15:00 Future Hold 01/03/18 03:40 Morphine Sulfate (Morphine Inj) 2 mg Q2HR PRN IV PUSH pain3-5 12/27/17 15:30 12/31/17 21:18 Morphine Sulfate (Morphine Inj) 4 mg Q2HR PRN IV PUSH PAIN SCALE 6 TO 8 12/27/17 15:45 12/29/17 03:43 Acetaminophen (Tylenol) 650 mg Q4H PRN PO SEE LABEL COMMENTS 12/31/17 16:30 12/31/17 21:19 Calcium Carbonate (Tums Chew) 500 mg Q12HR PRN CHEW indigestion 12/31/17 16:15 01/01/18 05:27 Prednisone (Deltasone) 10 mg BID PO 01/01/18 21:00 01/03/18 08:29 Fentanyl Citrate 250 ml @ 0 mls/hr TITRATE PRN IV SEDATION 01/01/18 15:15 01/03/18 11:02 Chlorhexidine Gluconate (Peridex 0.12% Liq) 15 ml BID@08,20 MT 01/01/18 20:00 01/02/18 20:46 Norepinephrine Bitartrate 250 ml @ 7.5 mls/hr TITRATE PRN IV Blood pressure management 01/01/18 17:00 01/02/18 21:09 Meropenem 1000 mg/ Sodium Chloride 100 ml @ 200 mls/hr Q8H IV 01/01/18 20:00 01/03/18 12:23 Filgrastim 480 mcg/Dextrose 26.6 ml @ 53.2 mls/hr DAILY@14 IV 01/02/18 14:00 01/02/18 15:08 Potassium Chloride 100 ml @ 50 mls/hr Q2H PRN IV For Potassium 2.8 - 3.2 mEq/L 01/02/18 07:30 01/02/18 10:34 Propofol 100 ml @ 2.757 mls/ hr TITRATE PRN IV SEDATION 01/02/18 11:15 01/03/18 09:35 Micafungin Sodium 100 mg/Sodium Chloride 100 ml @ 100 mls/hr Q24H IV 01/02/18 13:00 01/03/18 12:23 Albuterol/ Ipratropium (Duoneb Neb) 1 ampule Q6HR NEB NEB 01/03/18 10:00 01/03/18 08:28 Sodium Chloride 250 ml @ 15 mls/hr ONCE ONCE IV 01/03/18 08:45 01/04/18 01:24 01/03/18 12:30 Objective Remarks GENERAL: Elderly male resting in bed intubated and sedated SKIN: Warm and dry. HEAD: Normocephalic. EYES: No injection or drainage. NECK: Supple, trachea midline. CARDIOVASCULAR: Regular rate and rhythm without murmurs. RESPIRATORY: Overall diminished bilaterally with few scattered rhonchi. GASTROINTESTINAL: Abdomen soft, non-tender, nondistended. EXTREMITIES: No cyanosis, or edema. 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 Transfuse 1 unit packed red blood cells today for hemoglobin of 7.5. Monitor CBC. 01/02: patient remains intubated, sedated. start Neupogen for neutropenia + infection 01/01: patient in respiratory failure. intubated and transferring to intensive care. 12/31: C. difficile negative. Bone marrow biopsy shows no lymphoma involvement. Cytology from thoracentesis pending. Transfuse 1 unit PRBC for symptomatic with hgb 7.7. Patient would benefit from inpatient rehab for strengthening 12/28: continue solu-medrol. await thoracentesis. consult OT. 12/27: start Solu-medrol 40mg IV q 6. consult pulmonology for worsening infiltrates, pleural effusions. monitor CBC, counts dropping. 12/26: CT chest shows Bilateral Pl effusion. Continue aggressive diuresis. Had CHOP C1D1 yesterday. Tolerated well. Next chemo in 3 weeks as outpt. Continue allopurinol and prednisone. 12/25: CTA shows no PE. +LAD, PE. dyspnea likely d/t lymphoma. will give Solu- medrol 1g IV and start CHOP today. Anaplastic large cell, non-Hodgkin's lymphoma, at least stage III. --unclear whether he has any B symptoms, but this could be most likely given that he has significant weight loss, which is one of the symptoms of lymphoma. --Leukocytosis, anemia and neutrophilia, most likely due to bone marrow involvement by the lymphoma until proven otherwise. (2) Malnutrition ICD Codes: E46 - Unspecified protein-calorie malnutrition Plan: --tube feeds stopped at 715AM on 01/01/18 d/t inability to tolerate tube feeds. (3) Decubitus skin ulcer ICD Codes: L89.90 - Pressure ulcer of unspecified site, unspecified stage Plan: --wound care following. (4) Respiratory failure ICD Codes: J96.90 - Respiratory failure, unspecified, unspecified whether with hypoxia or hypercapnia Plan: --d/t aspiration from tube feeds --CTA showed no PE. --d/t pleural effusions, going for thoracentesis, 12/28 --s/p CHOP chemotherapy and Solu-Medrol 1G IV --pulmonology following, appreciate recommendations (5) Pancytopenia due to antineoplastic chemotherapy ICD Codes: D61.810 - Antineoplastic chemotherapy induced pancytopenia; T45.1X5A - Adverse effect of antineoplastic and immunosuppressive drugs, initial encounter Plan: --Neupogen started on 01/02. --monitor and transfuse as needed Assessment 72y/o male with newly diagnosed anaplastic large cell NHL. h/o COPD, hypercholesterolemia, hypertension, history of previous stroke. HPI: started 8 weeks ago with a cough mixed with greenish phlegm and shortness of breath. CT cap showed diffuse lymphadenopathy on both sides of the diaphragm. PET scan showed increased uptake in the lymph nodes involving the neck, chest, mediastinal and hilar area, retroperitoneum and pelvic lymph nodes. biopsy of the left neck mass=anaplastic large cell NHL echocardiogram, LVEF=55-70%. MUGA scan, showed EF of 60%. Attending Statement The exam, history, and the medical decision-making described in the above note were completed with the assistance of the mid-level provider. I reviewed and agree with the findings presented. I attest that I had a [id number] encounter with the patient on the same day, and personally performed and documented my assessment and findings in the medical record. Sedated and on vent. Nepogen fo rneutropenia. PRBC today ON A/B for aspiration PNA Problem Qualifiers (1) Malnutrition: Qualified Codes: E46 - Unspecified protein-calorie malnutrition Tawanna Hugo Jan 03, 2018 15:49 Josy Suarez MD Jan 03, 2018 23:14
[2018-01-03] MEDS: FILGRASTIM INJ 480 MCG in DEXTROSE 5% IN WATER INJ 25 ML IV SCH ×2 (15:52)
[2018-01-03] MEDS: BUDESONIDE-FORMOTEROL 160/4.5 MCG INHALER INH SCH (20:30)
--- NOTE | 2018-01-03 22:10 | RADRPT ---
EXAM DATE/TIME: 01/03/2018 14:27 [facility] COMPARISON: No previous studies available for comparison. INDICATIONS : Free air on ct scan. FLUORO TIME: minutes IMAGE COUNT: 13 CONTRAST: [facility] IMAGING TIME(S): 15 min, 1 hr, 2 hrs, 4 hrs, 6 hrs MEDICAL HISTORY : Stroke. Cardiovascular disease. Hypertension. lymphoma SURGICAL HISTORY : peg tube ENCOUNTER: Initial ACUITY: 1 week PAIN SCORE: Non-responsive. LOCATION: Bilateral abdomen FINDINGS: Contrast was injected through the gastrostomy tube. No leakage identified. Normal progression of cont rast or large bowel and colon no evidence for obstruction. Rectal temperature probe present. CONCLUSION: 1. No leakage identified on injection through gastrostomy tube. No small bowel obstruction or signifi cant dilatation. Elbert Carrasquillo MD on January 03, 2018 at 22:06 Board Certified Radiologist. This report was verified electronically.
[2018-01-03] MEDS ORDERED: DIATRIZOATE MEGLUM/DIATRIZOATE SOD 120 ML BTL (for RAD DIAG) G-TUBE ONE (22:37)
[2018-01-04] VITALS (20 sets, daily range): BP systolic 98–132; BP diastolic 61–64; PULSE 82–99; RESP 18; TEMP 97.8–98.6; O2SAT 92–100
[2018-01-04] MEDS: PROPOFOL 1000 MG/100 ML INJ 100 ML IV PRN ×3 (02:27→23:52)
[2018-01-04] MEDS: RESP: ALBUTEROL 2.5 MG/IPRATROPIUM 0.5 MG NEB (SCH) NEB ×4 (03:56→21:05)
--- NOTE | 2018-01-04 04:52 | RADRPT ---
EXAM DATE/TIME: 01/04/2018 03:22 [facility] COMPARISON: CHEST SINGLE AP, January 03, 2018, 2:08. INDICATIONS : Infiltrate. MEDICAL HISTORY : Stroke. Cardiovascular disease. Hypertension. Lymphoma SURGICAL HISTORY : Peg tube. [id number]. ENCOUNTER: Subsequent ACUITY: 2 weeks PAIN SCORE: Non-responsive. LOCATION: Bilateral chest FINDINGS: 2 AP semierect portable views of the chest were obtained again demonstrating endotracheal tube in mustapha ce with the tip at the thoracic inlet. The nasogastric tube is again seen coursing through the esopha navya and into the stomach. The bilateral internal jugular central venous lines remain in place. There' s been interval improvement in the hazy opacity in both lung bases with mild residual right greater t ulloa left. Both costophrenic angles appear mildly blunted. The heart size is within normal limits. CONCLUSION: 1. Interval improvement in bibasilar opacity. 2. The patient remains intubated. Bijan Loredo MD on January 04, 2018 at 4:48 Board Certified Radiologist. This report was verified electronically.
[2018-01-04] MEDS: MEROPENEM INJ 1,000 MG in SODIUM CHLORIDE 0.9% INJ 100 ML IV SCH ×3 (05:02→19:40)
[2018-01-04 05:41] LABS: HEMATOCRIT 27.7 % (39.0-51.0); HEMOGLOBIN 9.3 GM/DL (13.0-17.0); MEAN CELL VOLUME 83.8 FL (80.0-100.0); MEAN CORPUSCULAR HGB CONC 33.4 % (32.0-36.0); MEAN PLATELET VOLUME 9.2 FL (7.0-11.0); PLATELET COUNT 38 TH/MM3 (150-450); RED BLOOD COUNT 3.31 MIL/MM3 (4.50-5.90); RED CELL DISTRIBUTION WIDTH 17.9 % (11.6-17.2); WHITE BLOOD COUNT 0.1 TH/MM3 (4.0-11.0)
[2018-01-04 06:12] LABS: ALBUMIN 1.1 GM/DL (3.4-5.0); AST (GOT) 21 U/L (15-37); BICARBONATE 26.7 MEQ/L (21.0-32.0); BLOOD UREA NITROGEN 47 MG/DL (7-18); CALCIUM 7.9 MG/DL (8.5-10.1); CHLORIDE 118 MEQ/L (98-107); CREATININE 1.87 MG/DL (0.60-1.30); GLOMERULAR FILTRATION RATE 36 ML/MIN (>89); GLUCOSE,RANDOM 102 MG/DL (74-106); MAGNESIUM 2.2 MG/DL (1.5-2.5); SODIUM (NA) 153 MEQ/L (136-145)
[2018-01-04 06:14] LABS: ALT (GPT) 29 U/L (12-78); PHOSPHORUS 2.8 MG/DL (2.5-4.9)
[2018-01-04 06:16] LABS: ALKALINE PHOSPHATASE 59 U/L (45-117); RANDOM VANCOMYCIN 41.3 COMMENT; TOTAL BILIRUBIN ADULT 0.4 MG/DL (0.2-1.0); TOTAL PROTEIN 4.4 GM/DL (6.4-8.2)
--- NOTE | 2018-01-04 07:17 | HHI.CCPN ---
Subjective Remarks/Hospital Course 01/01: 72-year-old gentleman with history of hypertension, hyperlipidemia and previous CVA, COPD, now newly diagnosed with anaplastic large cell non-Hodgkin' s lymphoma now transferred from [facility] on 12/23 for further treatment. On 12/25 patient received chemotherapy -CHOP regimen. Hospitalization further significant for PEG placement due to malnutrition and lack of appetite and thoracentesis for pleural effusion. Patient was being followed by pulmonary, cardiology and hematology services. Over the night patient had increased O2 requirements with high tube feed residual and concern for aspiration. A rapid response was called earlier this afternoon for worsening hypoxia despite NRM. Patient was emergently intubated and upon intubation he was found to have significant amount of tube feeds in the airway. An NG tube was placed on suction with 750 cc suctioned from the stomach. Patient was started on midazolam and fentanyl drips and phenylephrine for BP support. Patient was seen immediately on ICU arrival, 100% O2 with SPO2 100%. Patient requires 20 mics per minute of phenylephrine infusion. He is intubated and sedated, unresponsive. 01/02: No events over the night. Patient remains critically ill. He is currently sedated and intubated. He remains on phenylephrine at 80 mics per minute. FiO2 down to 0.6. T-max 98.6, I/O 1550/400. 01/03: Patient did well over the night. Norepinephrine weaned off. FiO2 currently at 0.5. Patient remains on a PEEP of 10. Sedation accomplished with propofol and fentanyl. Tmax 98.4. 01/04: Multiple episodes of diarrhea overnight. No C. difficile sent. Urine output decreased, 300 mL's over last 12 hours. Patient does not require any pressors, sedation is maintained with propofol at 30 and fentanyl at 150. During sedation vacation patient moves all extremities, agitated, but does not follow commands. Currently he is sedated and intubated. Morning chest x-ray reviewed, slight improvement in bibasilar infiltrates. Review of systems is unobtainable since patient is intubated Objective Vital Signs Date Time Temp Pulse Resp B/P (MAP) Pulse Ox O2 Delivery O2 Flow Rate FiO2 01/04/18 06:00 99 01/04/18 04:25 99 40 01/04/18 04:00 98.6 18 98/64 (75) 01/03/18 19:00 Mechanical Ventilator 01/02/18 19:00 2.00 Intake and Output 01/04/18 01/04/18 01/05/18 08:00 16:00 00:00 Output Total 625 ml Balance -625 ml Result Diagram: 01/04/1851701/04/18 0518 Other Results Microbiology Date/Time Source Procedure Growth Status 01/01/18 17:57 Blood Peripheral Aerobic Blood Culture - Preliminary NO GROWTH IN 2 DAYS Resulted 01/01/18 17:57 Blood Peripheral Anaerobic Blood Culture - Preliminary NO GROWTH IN 2 DAYS Resulted 01/01/18 17:52 Blood Peripheral Aerobic Blood Culture - Preliminary NO GROWTH IN 2 DAYS Resulted 01/01/18 17:52 Blood Peripheral Anaerobic Blood Culture - Preliminary NO GROWTH IN 2 DAYS Resulted 01/01/18 17:15 Sputum Endotracheal Gram Stain - Final Resulted 01/01/18 17:15 Sputum Endotracheal Sputum Culture - Preliminary IMMATURE GROWTH - REINCUBATE Resulted 01/01/18 17:15 Urine Catheterized Urine Urine Culture - Final NO GROWTH IN 48 HOURS. Complete 01/01/18 17:15 Urine Clean Catch Legionella Antigen - Final PRESUMPTIVE NEGATIVE FOR LEGIONELLA P... Complete 01/01/18 17:15 Urine Clean Catch Streptococcus pneumoniae Antigen (M - Final PRESUMPTIVE NEGATIVE FOR STREPTOCOCCU... Complete Laboratory Tests Test 01/04/18 04:00 Blood Gas Puncture Site LT BRACHIAL Blood Gas Patient Temperature 98.6 Blood Gas HCO3 25 mmol/L (22-26) Blood Gas Base Excess 1.4 mmol/L (-2-2) Blood Gas Oxygen Saturation 96 % (90-100) Arterial Blood pH 7.43 (7.380-7.420) Arterial Blood Partial Pressure CO2 39 mmHg (38-42) Arterial Blood Partial Pressure O2 88 mmHg (61-120) Arterial Blood Oxygen Content 12.3 Vol % (12.0-20.0) Arterial Blood Carboxyhemoglobin 1.1 % (0-4) Arterial Blood Methemoglobin 0.7 % (0-2) Blood Gas Hemoglobin 9.1 G/DL (12.0-16.0) Oxygen Delivery Device VENTILATOR Blood Gas Ventilator Setting Blood Gas Inspired Oxygen 35 % Imaging Last 24 hours Impressions Chest X-Ray 01/04/18 0600 Signed Impressions: Service Date/Time: Thursday, January 04, 2018 03:22 - CONCLUSION: 1. Interval improvement in bibasilar opacity. 2. The patient remains intubated. Bijan Loredo MD Last Impressions Chest X-Ray 01/03/18 0600 Signed Impressions: Service Date/Time: December 02:08 - CONCLUSION: Increasing left lower lobe consolidation and increasing right pleural effusion. Siva Cooley MD Abdomen/Pelvis CT 01/02/18 0000 Signed Impressions: Service Date/Time: Tuesday, January 02, 2018 21:38 - CONCLUSION: 1. Free intraperitoneal air of unknown etiology. On the supine view most of the free air is around the gastrostomy tube and tip of the nasogastric tube as discussed above. 2. Mild to moderate ascites. Moderate anasarca. 3. Moderate bilateral effusions with basilar atelectasis. 4. Nonobstructing right renal calculus. Hay catheter in bladder. Elbert Crarasquillo MD Chest CT 12/30/17 0000 Signed Impressions: Service Date/Time: Saturday, December 30, 2017 21:13 - CONCLUSION: 1. Free intraperitoneal air in the upper abdomen of uncertain etiology. There is a gastrostomy present. 2. Moderate bilateral pleural effusions with compressive atelectasis. Patchy air space consolidation in the right upper lobe. 3. Moderate anasarca and ascites. 4. Findings called to the floor at the time of dictation. Elbert Carrasquillo MD Chest Ultrasound 12/27/17 0000 Signed Impressions: Service Date/Time: December 21:39 - CONCLUSION: Large left pleural effusion and would be amenable to thoracentesis. Frandy was made on the overlying skin. Andres Parekh MD Bone Biopsy CT 12/25/17 1142 Signed Impressions: Service Date/Time: Monday, December 25, 2017 12:32 - CONCLUSION: 1. Uncomplicated CT guided bone marrow aspirate. 2. Uncomplicated CT guided bone marrow biopsy. Lee Mijares MD CT Angiography 12/25/17 0000 Signed Impressions: Service Date/Time: Monday, December 25, 2017 09:26 - CONCLUSION: 1. No CT evidence for pulmonary artery embolism. 2. Moderate to large bilateral pleural effusions with associated compressive atelectasis at the lung bases. 3. 8mm nodule in the right middle lobe. Followup CT examination may be performed at 6 months to document stability if this has not been evaluated previously. 4. Very mildly prominent mediastinal and hilar nodes and partially imaged upper abdominal lymphadenopathy in this patient with history of lymphoma. Miguel Ashton MD Objective Remarks General - elderly gentleman intubated and sedated, ill-appearing HEENT - pupils are equal, reactive, sclerae are anicteric, neck is supple, not rigid, bilateral jugular vein distention, + ETT, + NGT, + LIJ CVC (01/01) -site clean, CV - irregular heart sounds, no murmurs Chest -slight improvement in coarse breath sounds bilateral, good air entry, no wheezes, [id number] right chest -site clean Abdomen - soft, obese, remains non-tender, BS present, no hepatomegaly, no splenomegaly, + PEG Extremities - well-perfused, warm, 3+ edema, + peripheral pulses Neuro - limited, intubated, sedated, pupils are equal and reactive, grimaces to painful stimuli but does not follow commands, does not open eyes to voice stimuli A/P Assessment and Plan 1. Acute hypoxic and hypercapnic respiratory failure - slow improvement in O2 requirements, currently down to 0.4 FiO2 but PEEP remains at 10 2. Likely aspiration pneumonia 3. Circulatory shock, likely septic vs med induced, requiring low-dose pressor -weaned off vasopressors 4. Neutropenia with ANC count less than 500 -continues to be severely neutropenic 5. NHL, received CHOP therapy on 12/25 6. Sacral decubitus 7. COPD 8. Hypokalemia -repleting 9. Hypernatremia - likely iatrogenic, slight worsening 10. Free air in the abdomen. On exam abdomen is soft and appears nontender 11. Atrial fibrillation -rate controlled 12. Pancytopenia -worsening thrombocytopenia, hemoglobin better post PRBC transfusion yesterday 1. Continue PRVC at current vent settings. PIP 24, patient synchronized with the vent, no auto PEEP. We attempted to decrease the PEEP to 8, however patient did not tolerate therefore PEEP was increased back to 10 2. Vent bundle and bronchodilators 3. Continue meropenem, vancomycin and micafungin per ID 4. Norepinephrine if needed to keep map above 65 5. Continue sedation with propofol and fentanyl for a RASS of -2. Sedation vacation today 6. We will change IV fluids to D5W at 75 events per hour 7. Received PRBC transfusion yesterday 8. If worsening pressor requirements will start stress dose steroids 9. Neupogen per onc 10. GI and DVT prophylaxis 11. If diarrhea persists send stool for C. difficile Patient is critically ill with hypoxic respiratory failure, aspiration pneumonia , septic in a severely immunocompromised host and he is at extremely high risk for further deterioration and . I discussed extensively yesterday with and [id number] and I updated her regarding patient's critical condition. Didier Montoya MD Jan 04, 2018 07:17
[2018-01-04] MEDS: INSULIN ASPART SUPPLEMENTAL SCALE SQ SCH ×4 (08:00→21:00)
[2018-01-04] MEDS: ASPIRIN EC 81 MG TABEC PO SCH (08:07)
[2018-01-04] MEDS: predniSONE 10 MG TAB PO SCH ×2 (08:07→21:00)
[2018-01-04] MEDS: BUDESONIDE-FORMOTEROL 160/4.5 MCG INHALER INH SCH ×2 (08:07→21:00)
[2018-01-04] MEDS: CHLORHEXIDINE 0.12% (ORAL KIT) 15 ML CUP MT SCH ×2 (08:07→19:40)
[2018-01-04] MEDS: DEXTROSE 5% IN WATE 1000ML INJ 1,000 ML IV SCH (08:07)
[2018-01-04] MEDS: SODIUM CHLORIDE 0.9% FLUSH 10 ML FLUSH IV FLUSH SCH ×2 (08:07→21:00)
[2018-01-04] MEDS: ATORVASTATIN 80 MG TAB PO SCH (08:08)
[2018-01-04] MEDS: MEGESTROL ACETATE SUSP 400 MG/10 ML CUP PO SCH (08:08)
[2018-01-04] MEDS: MULTIVITAMIN TAB PO SCH (08:08)
[2018-01-04] MEDS: ALLOPURINOL 300 MG TAB PO SCH (08:08)
[2018-01-04] MEDS: guaiFENesin E.R. 600 MG TAB PO SCH ×2 (08:08→21:00)
[2018-01-04] MEDS: PANTOPRAZOLE SOD 40 MG DELAYED RELEASE TAB PO SCH ×2 (08:08→21:00)
[2018-01-04] MEDS: DOCUSATE SODIUM 50 MG/SENNA 8.6 MG TAB PO SCH ×2 (08:08→21:00)
[2018-01-04] MEDS: fentaNYL DRIP 250 ML IV PRN (08:09)
[2018-01-04] MEDS: POTASSIUM CHLOR 40 MEQ PREMIX 100 ML IV PRN ×2 (08:10→11:16)
[2018-01-04 08:13] LABS: LYMPHOCYTES 67 % (9-44); MONOCYTES 33 % (0-8)
--- NOTE | 2018-01-04 11:04 | HHI.GIFU ---
Subjective Remarks Pt remains sedated and mechanically ventilated via ETT Per RN he had two large, loose BMs this morning PEG tube to LIWS- unable to assess if output is decreasing, suction was turned off over night ([place]) Objective Vitals I&O Vital Signs Date Time Temp Pulse Resp B/P (MAP) Pulse Ox O2 Delivery O2 Flow Rate FiO2 01/04/18 08:00 98 01/04/18 08:00 98.2 98 18 100/62 (75) 94 01/04/18 08:00 40 01/04/18 07:58 92 40 01/04/18 07:00 95 Mechanical Ventilator 40 01/04/18 06:00 99 01/04/18 04:25 99 40 01/04/18 04:00 98.6 92 18 98/64 (75) 99 01/04/18 04:00 92 01/04/18 04:00 40 01/04/18 03:58 100 50 01/04/18 02:00 96 01/04/18 01:30 94 50 01/04/18 00:08 98 40 01/04/18 00:00 94 01/04/18 00:00 50 01/04/18 00:00 98.6 94 18 127/64 (85) 98 01/03/18 22:00 94 01/03/18 20:19 96 40 01/03/18 20:00 97.5 86 18 112/63 (79) 94 01/03/18 20:00 40 01/03/18 20:00 86 01/03/18 19:00 94 Mechanical Ventilator 50 01/03/18 17:39 99 60 01/03/18 16:00 97.6 75 18 104/57 (73) 99 01/03/18 16:00 40 01/03/18 15:00 76 01/03/18 12:50 97.4 80 18 115/58 95 01/03/18 12:35 97.5 85 18 111/58 96 01/03/18 12:00 98.0 84 18 106/57 (73) 95 01/03/18 12:00 40 I/O 01/03/18 01/03/18 01/03/18 01/04/18 01/04/18 01/04/18 07:00 15:00 23:00 07:00 15:00 23:00 Intake Total 300 ml 900 ml 0 ml Output Total 850 ml 550 ml 625 ml Balance -550 ml 900 ml -550 ml -625 ml IV Total 300 ml Tube Feeding 0 ml Packed Cells 400 ml Blood Product IV Normal Saline Flush 500 ml Other 0 ml Output Urine Total 550 ml 300 ml 300 ml Gastric Drainage Total 100 ml 200 ml Drainage Total 200 ml 50 ml 325 ml # Bowel Movements 0 0 2 Laboratory Laboratory Tests Test 01/04/18 04:00 01/04/18 05:18 Blood Gas Puncture Site LT BRACHIAL Blood Gas Patient Temperature 98.6 Blood Gas HCO3 25 Blood Gas Base Excess 1.4 Blood Gas Oxygen Saturation 96 Arterial Blood pH 7.43 Arterial Blood Partial Pressure CO2 39 Arterial Blood Partial Pressure O2 88 Arterial Blood Oxygen Content 12.3 Arterial Blood Carboxyhemoglobin 1.1 Arterial Blood Methemoglobin 0.7 Blood Gas Hemoglobin 9.1 Oxygen Delivery Device VENTILATOR Blood Gas Ventilator Setting Blood Gas Inspired Oxygen 35 White Blood Count 0.1 Red Blood Count 3.31 Hemoglobin 9.3 Hematocrit 27.7 Mean Corpuscular Volume 83.8 Mean Corpuscular Hemoglobin 28.0 Mean Corpuscular Hemoglobin Concent 33.4 Red Cell Distribution Width 17.9 Platelet Count 38 Mean Platelet Volume 9.2 CBC Comment AUTO DIFF Differential Total Cells Counted 3 Lymphocytes % 67 Monocytes % 33 Neutrophils # (Manual) 0.0 Differential Comment FINAL DIFF MANUAL Platelet Estimate LOW Platelet Morphology Comment NORMAL Blood Urea Nitrogen 47 Creatinine 1.87 Random Glucose 102 Total Protein 4.4 Albumin 1.1 Calcium Level 7.9 Phosphorus Level 2.8 Magnesium Level 2.2 Alkaline Phosphatase 59 Aspartate Amino Transf (AST/SGOT) 21 Alanine Aminotransferase (ALT/SGPT) 29 Total Bilirubin 0.4 Sodium Level 153 Potassium Level 3.0 Chloride Level 118 Carbon Dioxide Level 26.7 Anion Gap 8 Estimat Glomerular Filtration Rate 36 Random Vancomycin Level 41.3 Date/Time Source Procedure Growth Status 01/01/18 17:57 Blood Peripheral Aerobic Blood Culture - Preliminary NO GROWTH IN 2 DAYS Resulted 01/01/18 17:57 Blood Peripheral Anaerobic Blood Culture - Preliminary NO GROWTH IN 2 DAYS Resulted 12/28/17 12:15 Fluid Pleural Fluid Fungal Smear - Final NO FUNGAL ELEMENTS SEEN. Resulted 12/28/17 12:15 Fluid Pleural Fluid Fungal Culture Pending Resulted 01/01/18 17:15 Sputum Endotracheal Gram Stain - Final Resulted 01/01/18 17:15 Sputum Endotracheal Sputum Culture - Preliminary IMMATURE GROWTH - REINCUBATE Resulted 01/01/18 17:15 Urine Catheterized Urine Urine Culture - Final NO GROWTH IN 48 HOURS. Complete Imaging Last Impressions Chest X-Ray 01/04/18 0600 Signed Impressions: Service Date/Time: Thursday, January 04, 2018 03:22 - CONCLUSION: 1. Interval improvement in bibasilar opacity. 2. The patient remains intubated. Bijan Loredo MD Small Bowel X-Ray 01/03/18 0000 Signed Impressions: Service Date/Time: December 14:27 - CONCLUSION: 1. No leakage identified on injection through gastrostomy tube. No small bowel obstruction or significant dilatation. Elbert Carrasquillo MD Abdomen/Pelvis CT 01/02/18 0000 Signed Impressions: Service Date/Time: Tuesday, January 02, 2018 21:38 - CONCLUSION: 1. Free intraperitoneal air of unknown etiology. On the supine view most of the free air is around the gastrostomy tube and tip of the nasogastric tube as discussed above. 2. Mild to moderate ascites. Moderate anasarca. 3. Moderate bilateral effusions with basilar atelectasis. 4. Nonobstructing right renal calculus. Hay catheter in bladder. Elbert Carrasquillo MD Chest CT 12/30/17 0000 Signed Impressions: Service Date/Time: Saturday, December 30, 2017 21:13 - CONCLUSION: 1. Free intraperitoneal air in the upper abdomen of uncertain etiology. There is a gastrostomy present. 2. Moderate bilateral pleural effusions with compressive atelectasis. Patchy air space consolidation in the right upper lobe. 3. Moderate anasarca and ascites. 4. Findings called to the floor at the time of dictation. Elbert Carrasquilol MD Chest Ultrasound 12/27/17 0000 Signed Impressions: Service Date/Time: December 21:39 - CONCLUSION: Large left pleural effusion and would be amenable to thoracentesis. Frandy was made on the overlying skin. Andres Parekh MD Bone Biopsy CT 12/25/17 1142 Signed Impressions: Service Date/Time: Monday, December 25, 2017 12:32 - CONCLUSION: 1. Uncomplicated CT guided bone marrow aspirate. 2. Uncomplicated CT guided bone marrow biopsy. Lee Mijares MD CT Angiography 12/25/17 0000 Signed Impressions: Service Date/Time: Monday, December 25, 2017 09:26 - CONCLUSION: 1. No CT evidence for pulmonary artery embolism. 2. Moderate to large bilateral pleural effusions with associated compressive atelectasis at the lung bases. 3. 8mm nodule in the right middle lobe. Followup CT examination may be performed at 6 months to document stability if this has not been evaluated previously. 4. Very mildly prominent mediastinal and hilar nodes and partially imaged upper abdominal lymphadenopathy in this patient with history of lymphoma. Miguel Ashton MD Physical Exam HEENT: Normocephalic; atraumatic; no jaundice. CHEST: Respirations synchronized with vent, mechanically ventilated via ETT CARDIAC: RRR ABDOMEN: Soft, nondistended, PEG site clean and dry to LIWS; bowel sounds active. Rectal bag. SKIN: Normal; no rash; no jaundice. [employer]CHITECT: Sedated, unresponsive ([place] V[place]) Assessment and Plan Plan Initial consult Weight loss with new dx of naplastic large cell lymphoma- Tx from [facility] for oncology treatment Pancytopenia- Pt on Neupogen, Neutropenic precautions, antifungal and abx per ID (01/03) Reconsult for PEG tube eval EGD with PEG placement (12/24) --> Ulcer in the first portion of the duodenum. Otherwise normal Pt was on Tube feeding Jevity @ 60 mL/hr- stopped because pt was not tolerating. He became hypoxic, O2 not sustained despite NRB so was intubated, during intubation a significant amount of TF was noted to be aspirated. TF placed on hold. Unclear why pt has an OG tube, most likely placed during intubation. Abnormal CT findings --> Free intraperitoneal air of unknown etiology. On the supine view most of the free air is around the G-tbue and tip of OG tube. Mild to moderate ascites. Moderate anasarca. Currently PEG tube to LIWS with bile colored drainage, per sister in law at bedside, yesterday drainage was stool colored. (01/04) --> Per RN pt had 2 large, loose BMs this morning. PEG tube to LIWS, suction was turned off last night so unsure if output is decreasing. KUB With SBFT- Gastrografin through PEG notes no leakage identified on injection through G tube. No small bowel obstruction or significant dilation. If output decreasing through PEG ok to restart TF. Discussed with RN states she will monitor. Plan: - OK to restart TF- Jevity 1.5 at 10mL/hr - Monitor residuals - Monitor stool output - Further recommendations based on clinical course Pt has been seen and examined by myself and Dr. Cao and this note is written on her behalf (Ny Villeda) Physician Comments seen, examined agree with above possible free air post peg insertion, no extravasation on current study (Ct Cao MD) Ny Villeda Jan 04, 2018 11:04 Ct Cao MD Jan 04, 2018 20:02
[2018-01-04] MEDS: MICAFUNGIN INJ 100 MG in SODIUM CHLORIDE 0.9% INJ 100 ML IV SCH (12:06)
[2018-01-04] MEDS: FILGRASTIM INJ 480 MCG in DEXTROSE 5% IN WATER INJ 25 ML IV SCH ×2 (14:42)
--- NOTE | 2018-01-04 15:23 | HHI.IDPN ---
Note Infectious Disease Note Patient on ventilator. On 40% FiO2. Sedated. Blood pressure stable. No fever. Sputum culture pending. White blood cell count remains low. 72-year-old white male who was diagnosed with lymphoma. The patient was noted to have become ill 2 months ago. He was noted to have cough and he was given 3 rounds of oral antibiotics without improvement of the cough. Subsequent workup revealed mediastinal adenopathy and other areas of adenopathy, and a biopsy of the lesion of the neck came back showing lymphoma. During his stay at [facility], he had no fever. He was given antibiotics. An Infusaport was placed on 12/20 for anticipated chemotherapy. PAST MEDICAL HISTORY: Stage IIIB anaplastic large cell lymphoma, COPD, hypertension, hyperlipidemia, history of CVA without residual deficits, nonsustained V-tach at [facility], neuropathy of the lower extremities, back surgery, Infusaport placement on 12/20/2017. ALLERGIES: HYDROCODONE. Antibiotics Meropenem. Vancomycin. Micafungin. MEDICATIONS: Vital Signs Date Time Temp Pulse Resp B/P (MAP) Pulse Ox O2 Delivery O2 Flow Rate FiO2 01/04/18 14:00 84 01/04/18 12:56 98 40 01/04/18 12:00 40 01/04/18 12:00 88 01/04/18 10:00 89 01/04/18 08:00 98 01/04/18 08:00 98.2 98 18 100/62 (75) 94 01/04/18 08:00 40 01/04/18 07:58 92 40 01/04/18 07:00 95 Mechanical Ventilator 40 01/04/18 06:00 99 01/04/18 04:25 99 40 01/04/18 04:00 98.6 92 18 98/64 (75) 99 01/04/18 04:00 92 01/04/18 04:00 40 01/04/18 03:58 100 50 01/04/18 02:00 96 01/04/18 01:30 94 50 01/04/18 00:08 98 40 01/04/18 00:00 94 01/04/18 00:00 50 01/04/18 00:00 98.6 94 18 127/64 (85) 98 01/03/18 22:00 94 01/03/18 20:19 96 40 01/03/18 20:00 97.5 86 18 112/63 (79) 94 01/03/18 20:00 40 01/03/18 20:00 86 01/03/18 19:00 94 Mechanical Ventilator 50 01/03/18 17:39 99 60 01/03/18 16:00 97.6 75 18 104/57 (73) 99 01/03/18 16:00 40 Laboratory Tests Test 01/03/18 03:55 01/04/18 05:18 White Blood Count 0.0 TH/MM3 0.1 TH/MM3 Red Blood Count 2.67 MIL/MM3 3.31 MIL/MM3 Hemoglobin 7.5 GM/DL 9.3 GM/DL Hematocrit 22.2 % 27.7 % Mean Corpuscular Volume 83.1 FL 83.8 FL Mean Corpuscular Hemoglobin 28.1 PG 28.0 PG Mean Corpuscular Hemoglobin Concent 33.8 % 33.4 % Red Cell Distribution Width 18.7 % 17.9 % Platelet Count 42 TH/MM3 38 TH/MM3 Mean Platelet Volume 9.5 FL 9.2 FL CBC Comment AUTO DIFF AUTO DIFF Differential Total Cells Counted 1 3 Monocytes % 100 % 33 % Neutrophils # (Manual) 0.0 TH/MM3 0.0 TH/MM3 Differential Comment AUTO DIFF CONFIRMED FINAL DIFF MANUAL Platelet Estimate LOW LOW Platelet Morphology Comment ENLARGED NORMAL Lymphocytes % 67 % Laboratory Tests Test 01/02/18 15:48 01/03/18 03:55 01/04/18 05:18 Blood Urea Nitrogen 38 MG/DL 39 MG/DL 47 MG/DL Creatinine 0.96 MG/DL 1.31 MG/DL 1.87 MG/DL Random Glucose 145 MG/DL 158 MG/DL 102 MG/DL Calcium Level 7.6 MG/DL 7.3 MG/DL 7.9 MG/DL Phosphorus Level 2.3 MG/DL 2.2 MG/DL 2.8 MG/DL Magnesium Level 2.1 MG/DL 1.9 MG/DL 2.2 MG/DL Sodium Level 148 MEQ/L 151 MEQ/L 153 MEQ/L Potassium Level 3.9 MEQ/L 3.4 MEQ/L 3.0 MEQ/L Chloride Level 114 MEQ/L 116 MEQ/L 118 MEQ/L Carbon Dioxide Level 27.5 MEQ/L 29.8 MEQ/L 26.7 MEQ/L Anion Gap 7 MEQ/L 5 MEQ/L 8 MEQ/L Estimat Glomerular Filtration Rate 77 ML/MIN 54 ML/MIN 36 ML/MIN Total Protein 4.1 GM/DL 4.4 GM/DL Albumin 1.2 GM/DL 1.1 GM/DL Alkaline Phosphatase 58 U/L 59 U/L Aspartate Amino Transf (AST/SGOT) 12 U/L 21 U/L Alanine Aminotransferase (ALT/SGPT) 29 U/L 29 U/L Total Bilirubin 0.3 MG/DL 0.4 MG/DL Protein Corrected Calcium 9.1 MG/DL Microbiology Date/Time Source Procedure Growth Status 01/01/18 17:57 Blood Peripheral Aerobic Blood Culture - Preliminary NO GROWTH IN 3 DAYS Resulted 01/01/18 17:57 Blood Peripheral Anaerobic Blood Culture - Preliminary NO GROWTH IN 3 DAYS Resulted 01/01/18 17:52 Blood Peripheral Aerobic Blood Culture - Preliminary NO GROWTH IN 3 DAYS Resulted 01/01/18 17:52 Blood Peripheral Anaerobic Blood Culture - Preliminary NO GROWTH IN 3 DAYS Resulted 01/01/18 17:15 Sputum Endotracheal Gram Stain - Final Resulted 01/01/18 17:15 Sputum Endotracheal Sputum Culture - Preliminary IMMATURE GROWTH - REINCUBATE Resulted 01/01/18 17:15 Urine Catheterized Urine Urine Culture - Final NO GROWTH IN 48 HOURS. Complete 01/01/18 17:15 Urine Clean Catch Legionella Antigen - Final PRESUMPTIVE NEGATIVE FOR LEGIONELLA P... Complete 01/01/18 17:15 Urine Clean Catch Streptococcus pneumoniae Antigen (M - Final PRESUMPTIVE NEGATIVE FOR STREPTOCOCCU... Complete IMAGING: Chest X-Ray 01/04/18 0600 Signed Impressions: Service Date/Time: Thursday, January 04, 2018 03:22 - CONCLUSION: 1. Interval improvement in bibasilar opacity. 2. The patient remains intubated. Bijan Loredo MD Chest X-Ray 01/03/18 0600 Signed Impressions: Service Date/Time: December 02:08 - CONCLUSION: Increasing left lower lobe consolidation and increasing right pleural effusion. Siva Cooley MD Abdomen/Pelvis CT 01/02/18 0000 Signed Impressions: Service Date/Time: Tuesday, January 02, 2018 21:38 - CONCLUSION: 1. Free intraperitoneal air of unknown etiology. On the supine view most of the free air is around the gastrostomy tube and tip of the nasogastric tube as discussed above. 2. Mild to moderate ascites. Moderate anasarca. 3. Moderate bilateral effusions with basilar atelectasis. 4. Nonobstructing right renal calculus. Hay catheter in bladder. Elbert Carrasquillo MD Chest X-Ray 01/01/18 0600 Signed Impressions: Service Date/Time: Monday, January 01, 2018 09:12 - CONCLUSION: 1. Bilateral pleural effusions unchanged from previous exam. 2. [id number] in good position. 3. Diffuse interstitial prominence probably chronic in etiology. This is unchanged from prior as well. Timothy Carrero MD Chest X-Ray 12/30/17 0000 Signed Impressions: Service Date/Time: Saturday, December 30, 2017 11:55 - CONCLUSION: Stable exam consistent with bilateral pleural effusions and/or overlying atelectasis. Radha Polanco MD Chest CT 12/30/17 0000 Signed Impressions: Service Date/Time: Saturday, December 30, 2017 21:13 - CONCLUSION: 1. Free intraperitoneal air in the upper abdomen of uncertain etiology. There is a gastrostomy present. 2. Moderate bilateral pleural effusions with compressive atelectasis. Patchy air space consolidation in the right upper lobe. 3. Moderate anasarca and ascites. 4. Findings called to the floor at the time of dictation. Elbert Carrasquillo MD PHYSICAL EXAMINATION: GENERAL: On the ventilator. Sedated. HEENT: No icterus. No conjunctival erythema. NECK: Supple. No adenopathy. No swelling. LUNGS: Decreased breath sounds bilateral. HEART: Regular S1 and S2. No murmurs, rubs or gallops. ABDOMEN: Markedly diminished bowel sounds, soft. EXTREMITIES: No clubbing or cyanosis, 1+ edema of the extremities. SKIN: No rash. NEUROLOGIC: Unable to assess. PSYCHIATRIC: Unable to assess. IMPRESSION: 1. Pneumonia. Bibasilar lung infiltrates. Preliminary cultures showing gram- negative bacteria. ID pending. Aspiration with decline in respiratory status. 2. Acute respiratory failure. Intubated on the ventilator. 3. Bilateral pleural effusions. Post thoracentesis. 4. Lymphoma. Treated with chemotherapy. 5. Neutropenia postchemotherapy. White blood cell count remains significantly depressed. Patient post chemotherapy. Patient now has pancytopenia. 5. Decreased nutrition in patient with anorexia and now post percutaneous endoscopic gastrostomy placement. Tube feeds placed on hold because of concern for aspiration Patient still very critically ill. RECOMMENDATIONS: 1. Continue meropenem. 2. Continue vancomycin. 3. Continue micafungin. 4. Monitor blood culture. 5. Monitor sputum culture. 6. Monitor clinical status. 7. Monitor the blood counts. Lenin Salomon MD Jan 04, 2018 15:23
--- NOTE | 2018-01-04 16:09 | PD.ONC.PN ---
Subjective Subjective Remarks Sedated and intubated. Off of pressors now. Still making urine. Had diarrhea last night. Objective Data Date Time Temp Pulse Resp B/P (MAP) Pulse Ox O2 Delivery O2 Flow Rate FiO2 01/04/18 14:00 84 01/04/18 12:56 98 40 01/04/18 12:00 40 01/04/18 12:00 88 01/04/18 10:00 89 01/04/18 08:00 98 01/04/18 08:00 98.2 98 18 100/62 (75) 94 01/04/18 08:00 40 01/04/18 07:58 92 40 01/04/18 07:00 95 Mechanical Ventilator 40 01/04/18 06:00 99 01/04/18 04:25 99 40 01/04/18 04:00 98.6 92 18 98/64 (75) 99 01/04/18 04:00 92 01/04/18 04:00 40 01/04/18 03:58 100 50 01/04/18 02:00 96 01/04/18 01:30 94 50 01/04/18 00:08 98 40 01/04/18 00:00 94 01/04/18 00:00 50 01/04/18 00:00 98.6 94 18 127/64 (85) 98 01/03/18 22:00 94 01/03/18 20:19 96 40 01/03/18 20:00 97.5 86 18 112/63 (79) 94 01/03/18 20:00 40 01/03/18 20:00 86 01/03/18 19:00 94 Mechanical Ventilator 50 01/03/18 17:39 99 60 01/04/18 01/04/18 01/04/18 06:59 14:59 22:59 Output Total 625 ml Balance -625 ml Result Diagram: 01/04/1851701/04/18517 Laboratory Results Laboratory Tests Test 01/04/18 04:00 01/04/18 05:18 Blood Gas Puncture Site LT BRACHIAL Blood Gas Patient Temperature 98.6 Blood Gas HCO3 25 mmol/L Blood Gas Base Excess 1.4 mmol/L Blood Gas Oxygen Saturation 96 % Arterial Blood pH 7.43 Arterial Blood Partial Pressure CO2 39 mmHg Arterial Blood Partial Pressure O2 88 mmHg Arterial Blood Oxygen Content 12.3 Vol % Arterial Blood Carboxyhemoglobin 1.1 % Arterial Blood Methemoglobin 0.7 % Blood Gas Hemoglobin 9.1 G/DL Oxygen Delivery Device VENTILATOR Blood Gas Ventilator Setting Blood Gas Inspired Oxygen 35 % White Blood Count 0.1 TH/MM3 Red Blood Count 3.31 MIL/MM3 Hemoglobin 9.3 GM/DL Hematocrit 27.7 % Mean Corpuscular Volume 83.8 FL Mean Corpuscular Hemoglobin 28.0 PG Mean Corpuscular Hemoglobin Concent 33.4 % Red Cell Distribution Width 17.9 % Platelet Count 38 TH/MM3 Mean Platelet Volume 9.2 FL CBC Comment AUTO DIFF Differential Total Cells Counted 3 Lymphocytes % 67 % Monocytes % 33 % Neutrophils # (Manual) 0.0 TH/MM3 Differential Comment FINAL DIFF MANUAL Platelet Estimate LOW Platelet Morphology Comment NORMAL Blood Urea Nitrogen 47 MG/DL Creatinine 1.87 MG/DL Random Glucose 102 MG/DL Total Protein 4.4 GM/DL Albumin 1.1 GM/DL Calcium Level 7.9 MG/DL Phosphorus Level 2.8 MG/DL Magnesium Level 2.2 MG/DL Alkaline Phosphatase 59 U/L Aspartate Amino Transf (AST/SGOT) 21 U/L Alanine Aminotransferase (ALT/SGPT) 29 U/L Total Bilirubin 0.4 MG/DL Sodium Level 153 MEQ/L Potassium Level 3.0 MEQ/L Chloride Level 118 MEQ/L Carbon Dioxide Level 26.7 MEQ/L Anion Gap 8 MEQ/L Estimat Glomerular Filtration Rate 36 ML/MIN Random Vancomycin Level 41.3 COMMENT Culture Results Microbiology Date/Time Source Procedure Growth Status 01/01/18 17:57 Blood Peripheral Aerobic Blood Culture - Preliminary NO GROWTH IN 3 DAYS Resulted 01/01/18 17:57 Blood Peripheral Anaerobic Blood Culture - Preliminary NO GROWTH IN 3 DAYS Resulted 01/01/18 17:52 Blood Peripheral Aerobic Blood Culture - Preliminary NO GROWTH IN 3 DAYS Resulted 01/01/18 17:52 Blood Peripheral Anaerobic Blood Culture - Preliminary NO GROWTH IN 3 DAYS Resulted 01/01/18 17:15 Sputum Endotracheal Gram Stain - Final Resulted 01/01/18 17:15 Sputum Endotracheal Sputum Culture - Preliminary IMMATURE GROWTH - REINCUBATE Resulted 01/01/18 17:15 Urine Catheterized Urine Urine Culture - Final NO GROWTH IN 48 HOURS. Complete 01/01/18 17:15 Urine Clean Catch Legionella Antigen - Final PRESUMPTIVE NEGATIVE FOR LEGIONELLA P... Complete 01/01/18 17:15 Urine Clean Catch Streptococcus pneumoniae Antigen (M - Final PRESUMPTIVE NEGATIVE FOR STREPTOCOCCU... Complete Imaging Studies Last 24 hours Impressions Chest X-Ray 01/04/18 0600 Signed Impressions: Service Date/Time: Thursday, January 04, 2018 03:22 - CONCLUSION: 1. Interval improvement in bibasilar opacity. 2. The patient remains intubated. Bijan Loredo MD Administered Medications Medications (Trade) Dose Ordered Sig/Candace Route PRN Reason Start Time Stop Time Status Last Admin Dose Admin Sodium Chloride (NS Flush) 2 ml BID IV FLUSH 12/22/17 21:00 01/03/18 08:31 Ondansetron HCl (Zofran Inj) 4 mg Q6H PRN IVP NAUSEA OR VOMITING 12/22/17 18:15 01/01/18 10:02 Senna/Docusate Sodium (Mary Kay-Colace) 1 tab BID PO 12/22/17 21:00 01/02/18 09:00 Albuterol/ Ipratropium (Duoneb Neb) 1 ampule Q4HR NEB PRN NEB SOB/WHEEZING 12/22/17 20:15 01/01/18 10:08 Zolpidem Tartrate (Ambien) 5 mg HS PRN PO INSOMNIA 12/22/17 20:15 12/26/17 20:30 Pantoprazole Sodium (Protonix) 40 mg Q12HR PO 12/22/17 21:00 01/01/18 08:52 Megestrol Acetate (Megace Liq) 800 mg DAILY PO 12/23/17 09:00 01/03/18 08:29 Budesonide/ Formoterol Fumarate (Symbicort 160-4.5 Mcg Inh) 1 puff Q12HR INH 12/22/17 21:00 01/01/18 08:53 Aspirin (Ecotrin Ec) 81 mg DAILY PO 12/23/17 09:00 01/01/18 08:52 Atorvastatin Calcium (Lipitor) 80 mg DAILY PO 12/23/17 09:00 01/04/18 08:08 Multivitamins (Theragran) 1 tab DAILY PO 12/23/17 09:00 01/04/18 08:08 Heparin Sodium (Porcine) (Heparin Central Flush) 250 units UNSCH PRN IV FLUSH SEE PROTOCOL 12/22/17 20:30 12/27/17 20:27 Insulin Aspart (NovoLOG SUPPLEMENTAL SCALE) 1 ACHS SLIDING SCALE SQ 12/22/17 21:00 01/01/18 21:00 Guaifenesin/ Dextromethorphan (Robitussin Dm 200-20 Mg/10 ml Liq) 10 ml Q4H PRN PO cough interfering with rest 12/22/17 21:00 12/26/17 18:27 Guaifenesin (Mucinex Er) 600 mg BID PO 12/23/17 21:00 01/01/18 08:52 Allopurinol (Zyloprim) 300 mg DAILY PO 12/26/17 09:00 01/04/18 08:08 Acetaminophen (Tylenol) 650 mg Q4H PRN PO FEVER>[id number] 12/26/17 14:45 12/26/17 20:32 Vancomycin HCl 1500 mg/Sodium Chloride 515 ml @ 250 mls/hr Q12H IV 12/27/17 15:00 Future Hold 01/03/18 03:40 Morphine Sulfate (Morphine Inj) 2 mg Q2HR PRN IV PUSH pain3-5 12/27/17 15:30 12/31/17 21:18 Morphine Sulfate (Morphine Inj) 4 mg Q2HR PRN IV PUSH PAIN SCALE 6 TO 8 12/27/17 15:45 12/29/17 03:43 Acetaminophen (Tylenol) 650 mg Q4H PRN PO SEE LABEL COMMENTS 12/31/17 16:30 12/31/17 21:19 Calcium Carbonate (Tums Chew) 500 mg Q12HR PRN CHEW indigestion 12/31/17 16:15 01/01/18 05:27 Prednisone (Deltasone) 10 mg BID PO 01/01/18 21:00 01/04/18 08:07 Fentanyl Citrate 250 ml @ 0 mls/hr TITRATE PRN IV SEDATION 01/01/18 15:15 01/04/18 08:09 Chlorhexidine Gluconate (Peridex 0.12% Liq) 15 ml BID@08,20 MT 01/01/18 20:00 01/04/18 08:07 Norepinephrine Bitartrate 250 ml @ 7.5 mls/hr TITRATE PRN IV Blood pressure management 01/01/18 17:00 01/02/18 21:09 Meropenem 1000 mg/ Sodium Chloride 100 ml @ 200 mls/hr Q8H IV 01/01/18 20:00 01/04/18 12:05 Filgrastim 480 mcg/Dextrose 26.6 ml @ 53.2 mls/hr DAILY@14 IV 01/02/18 14:00 01/04/18 14:42 Potassium Chloride 100 ml @ 50 mls/hr Q2H PRN IV For Potassium 2.8 - 3.2 mEq/L 01/02/18 07:30 01/04/18 11:16 Potassium Chloride 100 ml @ 50 mls/hr Q2H PRN IV For Potassium 2.8 - 3.2 mEq/L 01/02/18 07:30 01/02/18 10:34 Propofol 100 ml @ 2.757 mls/ hr TITRATE PRN IV SEDATION 01/02/18 11:15 01/04/18 08:09 Micafungin Sodium 100 mg/Sodium Chloride 100 ml @ 100 mls/hr Q24H IV 01/02/18 13:00 01/04/18 12:06 Albuterol/ Ipratropium (Duoneb Neb) 1 ampule Q6HR NEB NEB 01/03/18 10:00 01/04/18 08:05 Dextrose 1,000 ml @ 75 mls/hr [id number] IV 01/04/18 07:00 01/04/18 08:07 Objective Remarks GENERAL: patient on vent SKIN: Warm and dry. HEAD: Normocephalic. EYES: No scleral icterus. NECK: Supple, trachea midline. LYMPHATIC: No adenopathy. CARDIOVASCULAR: Regular rate and rhythm without murmurs. RESPIRATORY: Breath sounds equal bilaterally. GASTROINTESTINAL: Abdomen soft, nondistended. + PEG EXTREMITIES: No cyanosis, or edema. NEUROLOGICAL: sedated. Assessment/Plan Problem List: (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 - Anaplastic large cell lymphoma, ALK-negative, unspecified site Plan: 01/04/: remains on vent. Off pf pressors. Pancytopenia with Neutropenia. Continue neupogen. Vent management per [employer]. Extensive d/w and DIL ( [employer]). answered their questions. Continue maximal support. 01/03: Continue Neupogen. Transfuse 1 unit packed red blood cells today for hemoglobin of 7.5. Monitor CBC. 01/02: patient remains intubated, sedated. start Neupogen for neutropenia + infection 01/01: patient in respiratory failure. intubated and transferring to intensive care. 12/31: C. difficile negative. Bone marrow biopsy shows no lymphoma involvement. Cytology from thoracentesis pending. Transfuse 1 unit PRBC for symptomatic with hgb 7.7. Patient would benefit from inpatient rehab for strengthening 12/28: continue solu-medrol. await thoracentesis. consult OT. 12/27: start Solu-medrol 40mg IV q 6. consult pulmonology for worsening infiltrates, pleural effusions. monitor CBC, counts dropping. 12/26: CT chest shows Bilateral Pl effusion. Continue aggressive diuresis. Had CHOP C1D1 yesterday. Tolerated well. Next chemo in 3 weeks as outpt. Continue allopurinol and prednisone. 12/25: CTA shows no PE. +LAD, PE. dyspnea likely d/t lymphoma. will give Solu- medrol 1g IV and start CHOP today. Anaplastic large cell, non-Hodgkin's lymphoma, at least stage III. --unclear whether he has any B symptoms, but this could be most likely given that he has significant weight loss, which is one of the symptoms of lymphoma. --Leukocytosis, anemia and neutrophilia, most likely due to bone marrow involvement by the lymphoma until proven otherwise. (2) Malnutrition ICD Codes: E46 - Unspecified protein-calorie malnutrition Plan: --tube feeds stopped at 715AM on 01/01/18 d/t inability to tolerate tube feeds. (3) Decubitus skin ulcer ICD Codes: L89.90 - Pressure ulcer of unspecified site, unspecified stage Plan: --wound care following. (4) Respiratory failure ICD Codes: J96.90 - Respiratory failure, unspecified, unspecified whether with hypoxia or hypercapnia Plan: --d/t aspiration from tube feeds --CTA showed no PE. --d/t pleural effusions, going for thoracentesis, 12/28 --s/p CHOP chemotherapy and Solu-Medrol 1G IV --pulmonology following, appreciate recommendations (5) Pancytopenia due to antineoplastic chemotherapy ICD Codes: D61.810 - Antineoplastic chemotherapy induced pancytopenia; T45.1X5A - Adverse effect of antineoplastic and immunosuppressive drugs, initial encounter Plan: --Neupogen started on 01/02. --monitor and transfuse as needed Assessment 72y/o male with newly diagnosed anaplastic large cell NHL. h/o COPD, hypercholesterolemia, hypertension, history of previous stroke. HPI: started 8 weeks ago with a cough mixed with greenish phlegm and shortness of breath. CT cap showed diffuse lymphadenopathy on both sides of the diaphragm. PET scan showed increased uptake in the lymph nodes involving the neck, chest, mediastinal and hilar area, retroperitoneum and pelvic lymph nodes. biopsy of the left neck mass=anaplastic large cell NHL echocardiogram, LVEF=55-70%. MUGA scan, showed EF of 60%. Problem Qualifiers (1) Malnutrition: Qualified Codes: E46 - Unspecified protein-calorie malnutrition Josy Suarez MD Jan 04, 2018 16:09
[2018-01-05] VITALS (18 sets, daily range): BP systolic 98–117; BP diastolic 59–67; PULSE 63–86; RESP 18; TEMP 97.1–98.2; O2SAT 94–100
[2018-01-05] MEDS: RESP: ALBUTEROL 2.5 MG/IPRATROPIUM 0.5 MG NEB (SCH) NEB ×4 (03:44→20:20)
[2018-01-05] MEDS: MEROPENEM INJ 1,000 MG in SODIUM CHLORIDE 0.9% INJ 100 ML IV SCH ×2 (04:37→16:11)
[2018-01-05] MEDS: fentaNYL DRIP 250 ML IV PRN ×2 (04:37→23:02)
[2018-01-05] MEDS: DEXTROSE 5% IN WATE 1000ML INJ 1,000 ML IV SCH ×3 (04:59→19:59)
[2018-01-05 05:13] LABS: AST (GOT) 16 U/L (15-37); BICARBONATE 25.8 MEQ/L (21.0-32.0); BLOOD UREA NITROGEN 48 MG/DL (7-18); CALCIUM 8.2 MG/DL (8.5-10.1); CHLORIDE 117 MEQ/L (98-107); CREATININE 2.15 MG/DL (0.60-1.30); GLOMERULAR FILTRATION RATE 30 ML/MIN (>89); GLUCOSE,RANDOM 147 MG/DL (74-106); MAGNESIUM 2.4 MG/DL (1.5-2.5); SODIUM (NA) 151 MEQ/L (136-145)
[2018-01-05 05:14] LABS: ALT (GPT) 24 U/L (12-78)
[2018-01-05 05:16] LABS: ALKALINE PHOSPHATASE 55 U/L (45-117); RANDOM VANCOMYCIN 35.9 COMMENT; TOTAL BILIRUBIN ADULT 0.3 MG/DL (0.2-1.0); TOTAL PROTEIN 4.2 GM/DL (6.4-8.2)
[2018-01-05 05:17] LABS: HEMATOCRIT 25.9 % (39.0-51.0); HEMOGLOBIN 8.9 GM/DL (13.0-17.0); MEAN CELL VOLUME 83.6 FL (80.0-100.0); MEAN CORPUSCULAR HEMOGLOBIN 28.6 PG (27.0-34.0); MEAN CORPUSCULAR HGB CONC 34.2 % (32.0-36.0); MEAN PLATELET VOLUME 10.6 FL (7.0-11.0); PLATELET COUNT 46 TH/MM3 (150-450); RED CELL DISTRIBUTION WIDTH 18.3 % (11.6-17.2); WHITE BLOOD COUNT 0.3 TH/MM3 (4.0-11.0)
[2018-01-05] MEDS: PROPOFOL 1000 MG/100 ML INJ 100 ML IV PRN ×3 (05:44→21:59)
--- NOTE | 2018-01-05 07:04 | RADRPT ---
EXAM DATE/TIME: 01/05/2018 06:43 [facility] COMPARISON: CHEST SINGLE AP, January 04, 2018, 3:22. INDICATIONS : Infiltrate. Short of breath. MEDICAL HISTORY : Cardiovascular disease. Cerebrovascular disease. Hypertension. Lymphoma. SURGICAL HISTORY : Peg tube. [id number]. ENCOUNTER: Subsequent ACUITY: 1 day PAIN SCORE: Non-responsive. LOCATION: Bilateral chest FINDINGS: Small bowel pleural effusions are noted. Hazy opacities are again noted within the lung bases and are stable. The endotracheal tube, nasogastric tube, left internal jugular central line and a right inte rnal jugular [id number]-[id number] are stable. No pneumothorax is noted the heart is stable. CONCLUSION: Small bilateral pleural effusions. Persistent bibasilar hazy opacities. Multiple tubes and lines are stable. Lee Mijares MD on January 05, 2018 at 7:00 Board Certified Radiologist. This report was verified electronically.
[2018-01-05 07:26] LABS: NEUTROPHIL # MANUAL DIFF 0.2 TH/MM3 (1.8-7.7); NUCLEATED RED BLOOD CELL 1 (0-0)
[2018-01-05 07:27] LABS: BANDS 40 % (0-6); CORRECTED NUCLEATED RBC 5 /100 WBC (0-0); LYMPHOCYTES 30 % (9-44); METAMYELOCYTES 10 % (0-1); MONOCYTES 5 % (0-8); POLYS (SEG NEUTROPHILS) 15 % (16-70)
[2018-01-05 07:28] LABS: OVALOCYTES 1+ (NORMAL)
[2018-01-05] MEDS: INSULIN ASPART SUPPLEMENTAL SCALE SQ SCH ×4 (08:00→20:43)
--- NOTE | 2018-01-05 08:26 | RADRPT ---
EXAM DATE/TIME: 01/05/2018 08:00 [facility] COMPARISON: CT ABDOMEN & PELVIS W/O CONTRAST, January 02, 2018, 21:38. EXTERNAL COMPARISON : [facility], CT PET Tumor, November 28, 2017CT Abdomen and pelvis, 11/22/2017. INDICATIONS : Increased Bun and Creatinine. MEDICAL HISTORY : Lymphoma. Chronic obstructive pulmonary disease. Hypercholesterolemia. Hypertension. CVA. SURGICAL HISTORY : Port placement. Back surgery. ENCOUNTER: Initial ACUITY: 1 week PAIN SCORE: Nonresponsive. LOCATION: Bilateral flank MEASUREMENTS: RIGHT KIDNEY: 12.4 x 5.9 x 5.3 cm LEFT KIDNEY: 11.5 x 4.9 x 5.2 cm FINDINGS: The kidneys are echogenic suggesting medical renal disease. No hydronephrosis or solid renal mass is noted. Some ascites is noted. Bilateral pleural effusions are noted. The urinary bladder contains a F oley catheter and is nondistended. CONCLUSION: Echogenic kidneys suggesting medical renal disease. Some ascites. Bilateral pleural e ffusions. Lee Mijares MD on January 05, 2018 at 8:21 Board Certified Radiologist. This report was verified electronically.
--- NOTE | 2018-01-05 08:54 | HHI.CCPN ---
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 On 12/25 patient received chemotherapy -CHOP regimen. Hospitalization further significant for PEG placement due to malnutrition and lack of appetite and thoracentesis for pleural effusion. Patient was being followed by pulmonary, cardiology and hematology services. Over the night patient had increased O2 requirements with high tube feed residual and concern for aspiration. A rapid response was called earlier this afternoon for worsening hypoxia despite NRM. Patient was emergently intubated and upon intubation he was found to have significant amount of tube feeds in the airway. An NG tube was placed on suction with 750 cc suctioned from the stomach. Patient was started on midazolam and fentanyl drips and phenylephrine for BP support. Patient was seen immediately on ICU arrival, 100% O2 with SPO2 100%. Patient requires 20 mics per minute of phenylephrine infusion. He is intubated and sedated, unresponsive. 01/02: No events over the night. Patient remains critically ill. He is currently sedated and intubated. He remains on phenylephrine at 80 mics per minute. FiO2 down to 0.6. T-max 98.6, I/O 1550/400. 01/03: Patient did well over the night. Norepinephrine weaned off. FiO2 currently at 0.5. Patient remains on a PEEP of 10. Sedation accomplished with propofol and fentanyl. Tmax 98.4. 01/04: Multiple episodes of diarrhea overnight. No C. difficile sent. Urine output decreased, 300 mL's over last 12 hours. Patient does not require any pressors, sedation is maintained with propofol at 30 and fentanyl at 150. During sedation vacation patient moves all extremities, agitated, but does not follow commands. Currently he is sedated and intubated. Morning chest x-ray reviewed, slight improvement in bibasilar infiltrates. 01/05: No events over the night. T-max of 98.6. Urine output 550 mL's over the last 24 hours. Ventilator on 0.4 FiO2. Sedation was stopped this morning, patient agitated moving all extremities but not following commands. Morning chest x-ray reviewed, no significant change compared to yesterday's, ET tube approximately 7 cm above clem. Review of systems is unobtainable since patient is intubated Objective Vital Signs Date Time Temp Pulse Resp B/P (MAP) Pulse Ox O2 Delivery O2 Flow Rate FiO2 01/05/18 07:57 96 40 01/05/18 07:00 Mechanical Ventilator 01/05/18 06:00 78 01/05/18 04:00 98.2 18 98/59 (72) 01/02/18 19:00 2.00 Intake and Output 01/05/18 01/05/18 01/06/18 08:00 16:00 00:00 Intake Total 1450 ml Output Total 750 ml Balance 700 ml Result Diagram: 01/05/18 0435 01/05/18 0435 Other Results ABG Test 01/05/18 05:11 Arterial Blood Carboxyhemoglobin 1.2 % Arterial Blood Methemoglobin 0.9 % Arterial Blood Oxygen Content 12.1 Vol % Arterial Blood Partial Pressure CO2 37 mmHg L Arterial Blood Partial Pressure O2 74 mmHg Arterial Blood pH 7.44 H Blood Gas Base Excess 1.1 mmol/L Blood Gas HCO3 25 mmol/L Blood Gas Hemoglobin 9.1 G/DL L Blood Gas Oxygen Saturation 94 % Blood Gas Ventilator Setting COMMENT Oxygen Delivery Device VENTILATOR Laboratory Tests Test 01/05/18 05:11 Blood Gas Puncture Site RT BRACHIAL Blood Gas Patient Temperature 98.6 Blood Gas HCO3 25 mmol/L (22-26) Blood Gas Base Excess 1.1 mmol/L (-2-2) Blood Gas Oxygen Saturation 94 % (90-100) Arterial Blood pH 7.44 (7.380-7.420) Arterial Blood Partial Pressure CO2 37 mmHg (38-42) Arterial Blood Partial Pressure O2 74 mmHg (61-120) Arterial Blood Oxygen Content 12.1 Vol % (12.0-20.0) Arterial Blood Carboxyhemoglobin 1.2 % (0-4) Arterial Blood Methemoglobin 0.9 % (0-2) Blood Gas Hemoglobin 9.1 G/DL (12.0-16.0) Oxygen Delivery Device VENTILATOR Blood Gas Ventilator Setting COMMENT Imaging Last 24 hours Impressions Chest X-Ray 01/04/18 0600 Signed Impressions: Service Date/Time: Thursday, January 04, 2018 03:22 - CONCLUSION: 1. Interval improvement in bibasilar opacity. 2. The patient remains intubated. Bijan Loredo MD Last Impressions Chest X-Ray 01/03/18 0600 Signed Impressions: Service Date/Time: December 02:08 - CONCLUSION: Increasing left lower lobe consolidation and increasing right pleural effusion. Siva Cooley MD Abdomen/Pelvis CT 01/02/18 0000 Signed Impressions: Service Date/Time: Tuesday, January 02, 2018 21:38 - CONCLUSION: 1. Free intraperitoneal air of unknown etiology. On the supine view most of the free air is around the gastrostomy tube and tip of the nasogastric tube as discussed above. 2. Mild to moderate ascites. Moderate anasarca. 3. Moderate bilateral effusions with basilar atelectasis. 4. Nonobstructing right renal calculus. Hay catheter in bladder. Elbert Carrasquillo MD Chest CT 12/30/17 0000 Signed Impressions: Service Date/Time: Saturday, December 30, 2017 21:13 - CONCLUSION: 1. Free intraperitoneal air in the upper abdomen of uncertain etiology. There is a gastrostomy present. 2. Moderate bilateral pleural effusions with compressive atelectasis. Patchy air space consolidation in the right upper lobe. 3. Moderate anasarca and ascites. 4. Findings called to the floor at the time of dictation. Elbert Carrasquillo MD Chest Ultrasound 12/27/17 0000 Signed Impressions: Service Date/Time: December 21:39 - CONCLUSION: Large left pleural effusion and would be amenable to thoracentesis. Frandy was made on the overlying skin. Andres Parekh MD Bone Biopsy CT 12/25/17 1142 Signed Impressions: Service Date/Time: Monday, December 25, 2017 12:32 - CONCLUSION: 1. Uncomplicated CT guided bone marrow aspirate. 2. Uncomplicated CT guided bone marrow biopsy. Lee Mijares MD CT Angiography 12/25/17 0000 Signed Impressions: Service Date/Time: Monday, December 25, 2017 09:26 - CONCLUSION: 1. No CT evidence for pulmonary artery embolism. 2. Moderate to large bilateral pleural effusions with associated compressive atelectasis at the lung bases. 3. 8mm nodule in the right middle lobe. Followup CT examination may be performed at 6 months to document stability if this has not been evaluated previously. 4. Very mildly prominent mediastinal and hilar nodes and partially imaged upper abdominal lymphadenopathy in this patient with history of lymphoma. Miguel Ashton MD Objective Remarks General - elderly gentleman intubated and sedated, ill-appearing HEENT - pupils equal, reactive, sclerae anicteric, neck supple, no rigidity, + jugular vein distention, + NGT, + LIJ CVC (01/01) -site remains clean, orally intubated CV - irregular S1 and S2, no murmurs, rubs or gallops Chest - scattered coarse breath sounds bilateral, good air entry, no wheezes, [id number] right chest -site remains clean Abdomen - soft, obese, non-tender, BS present, no hepatomegaly, no splenomegaly , + PEG Extremities - 3+ edema, + peripheral pulses, warm, no cyanosis Neuro - intubated, pupils equal and reactive, moves all 4 extremities, but does not follow commands, withdraws to pain A/P Assessment and Plan 1. Acute hypoxic and hypercapnic respiratory failure - slow improvement in O2 requirements, currently down to 0.4 FiO2 but PEEP remains at 10 2. Likely aspiration pneumonia 3. Circulatory shock, likely septic vs med induced, requiring low-dose pressor -weaned off vasopressors 4. Neutropenia with ANC count less than 500 -continues to be severely neutropenic, slowly trending up 5. NHL, received CHOP therapy on 12/25 6. Sacral decubitus 7. CYNDI -likely ATN due to hypotension 8. Hypokalemia -resolved 9. Hypernatremia - likely iatrogenic, improving 10. Free air in the abdomen. On exam abdomen is soft and nontender 11. Atrial fibrillation -rate controlled 12. Pancytopenia -worsening thrombocytopenia, hemoglobin better post PRBC transfusion 1. Continue PRVC at current vent settings. PIP 25, patient synchronized with the vent, no auto PEEP. We will slowly wean PEEP to 8 as tolerated 2. Vent bundle and bronchodilators 3. Continue meropenem, vancomycin and micafungin per ID 4. Norepinephrine if needed to keep map above 65 5. Sedation vacation performed. Patient becomes agitated trying to pull the ET tube. Will restart propofol and fentanyl 6. Continue D5W at 75 ml per hour 7. Renal ultrasound, urine lytes, nephrology consult 8. CT head 9. Neupogen per onc 10. GI and DVT prophylaxis 11. Trickle tube feeds whenever okay with GI Patient is critically ill with hypoxic respiratory failure, aspiration pneumonia , septic in a severely immunocompromised host and he is at extremely high risk for further deterioration and . I discussed extensively yesterday with and I updated her regarding patient' s critical condition. No family present today at bedside. Didier Montoya MD Jan 05, 2018 08:54
[2018-01-05] MEDS: CHLORHEXIDINE 0.12% (ORAL KIT) 15 ML CUP MT SCH ×2 (08:59→20:00)
[2018-01-05] MEDS: MEGESTROL ACETATE SUSP 400 MG/10 ML CUP PO SCH (09:00)
[2018-01-05] MEDS: BUDESONIDE-FORMOTEROL 160/4.5 MCG INHALER INH SCH ×2 (09:00→20:02)
[2018-01-05] MEDS: DOCUSATE SODIUM 50 MG/SENNA 8.6 MG TAB PO SCH ×2 (09:00→20:12)
[2018-01-05] MEDS: guaiFENesin E.R. 600 MG TAB PO SCH ×2 (09:00→20:12)
[2018-01-05] MEDS: SODIUM CHLORIDE 0.9% FLUSH 10 ML FLUSH IV FLUSH SCH ×2 (09:00→20:12)
[2018-01-05] MEDS: PANTOPRAZOLE SOD 40 MG DELAYED RELEASE TAB PO SCH ×2 (09:00→20:12)
[2018-01-05] MEDS: ASPIRIN EC 81 MG TABEC PO SCH (09:00)
[2018-01-05] MEDS: predniSONE 10 MG TAB PO SCH ×2 (09:03→20:12)
[2018-01-05] MEDS: ALLOPURINOL 300 MG TAB PO SCH (09:04)
[2018-01-05] MEDS: MULTIVITAMIN TAB PO SCH (09:04)
[2018-01-05] MEDS: ATORVASTATIN 80 MG TAB PO SCH (09:04)
--- NOTE | 2018-01-05 10:28 | PD.ONC.PN ---
Subjective Subjective Remarks Afebrile Patient remains intubated and sedated Per RN, he had a long sedation vacation this morning and was making nonpurposeful movements Not following commands off sedation There are plans to have a CT of the brain today Objective Data Date Time Temp Pulse Resp B/P (MAP) Pulse Ox O2 Delivery O2 Flow Rate FiO2 01/05/18 10:00 63 01/05/18 08:00 70 01/05/18 08:00 40 01/05/18 08:00 97.5 86 18 116/67 (83) 94 01/05/18 07:57 96 40 01/05/18 07:00 100 Mechanical Ventilator 40 01/05/18 06:00 78 01/05/18 06:00 98 40 01/05/18 04:00 70 01/05/18 04:00 40 01/05/18 04:00 98.2 70 18 98/59 (72) 97 01/05/18 03:45 98 40 01/05/18 02:00 71 01/05/18 00:00 40 01/05/18 00:00 81 01/05/18 00:00 98.2 70 18 98/59 (72) 100 01/04/18 22:00 92 01/04/18 21:06 100 40 01/04/18 20:00 85 01/04/18 20:00 97.8 85 18 132/61 (84) 100 01/04/18 20:00 40 01/04/18 19:00 100 Mechanical Ventilator 40 01/04/18 18:00 82 01/04/18 17:52 98 40 01/04/18 16:00 82 01/04/18 16:00 40 01/04/18 14:00 84 01/04/18 12:56 98 40 01/04/18 12:00 40 01/04/18 12:00 88 01/05/18 01/05/18 01/05/18 07:00 15:00 23:00 Intake Total 1450 ml Output Total 750 ml Balance 700 ml Result Diagram: 01/05/18 0435 01/05/18 0435 Laboratory Results Laboratory Tests Test 01/05/18 04:35 01/05/18 05:11 White Blood Count 0.3 TH/MM3 Red Blood Count 3.10 MIL/MM3 Hemoglobin 8.9 GM/DL Hematocrit 25.9 % Mean Corpuscular Volume 83.6 FL Mean Corpuscular Hemoglobin 28.6 PG Mean Corpuscular Hemoglobin Concent 34.2 % Red Cell Distribution Width 18.3 % Platelet Count 46 TH/MM3 Mean Platelet Volume 10.6 FL CBC Comment AUTO DIFF Differential Total Cells Counted 20 Neutrophils % (Manual) 15 % Band Neutrophils % 40 % Lymphocytes % 30 % Monocytes % 5 % Neutrophils # (Manual) 0.2 TH/MM3 Metamyelocytes 10 % Nucleated Red Blood Cells 5 /100 WBC Differential Comment FINAL DIFF MANUAL Platelet Estimate LOW Platelet Morphology Comment ENLARGED Ovalocytes 1+ Blood Urea Nitrogen 48 MG/DL Creatinine 2.15 MG/DL Random Glucose 147 MG/DL Total Protein 4.2 GM/DL Albumin 1.0 GM/DL Calcium Level 8.2 MG/DL Phosphorus Level 3.0 MG/DL Magnesium Level 2.4 MG/DL Alkaline Phosphatase 55 U/L Aspartate Amino Transf (AST/SGOT) 16 U/L Alanine Aminotransferase (ALT/SGPT) 24 U/L Total Bilirubin 0.3 MG/DL Sodium Level 151 MEQ/L Potassium Level 3.7 MEQ/L Chloride Level 117 MEQ/L Carbon Dioxide Level 25.8 MEQ/L Anion Gap 8 MEQ/L Estimat Glomerular Filtration Rate 30 ML/MIN Random Vancomycin Level 35.9 COMMENT Blood Gas Puncture Site RT BRACHIAL Blood Gas Patient Temperature 98.6 Blood Gas HCO3 25 mmol/L Blood Gas Base Excess 1.1 mmol/L Blood Gas Oxygen Saturation 94 % Arterial Blood pH 7.44 Arterial Blood Partial Pressure CO2 37 mmHg Arterial Blood Partial Pressure O2 74 mmHg Arterial Blood Oxygen Content 12.1 Vol % Arterial Blood Carboxyhemoglobin 1.2 % Arterial Blood Methemoglobin 0.9 % Blood Gas Hemoglobin 9.1 G/DL Oxygen Delivery Device VENTILATOR Blood Gas Ventilator Setting COMMENT Administered Medications Medications (Trade) Dose Ordered Sig/Candace Route PRN Reason Start Time Stop Time Status Last Admin Dose Admin Sodium Chloride (NS Flush) 2 ml BID IV FLUSH 12/22/17 21:00 01/04/18 21:00 Ondansetron HCl (Zofran Inj) 4 mg Q6H PRN IVP NAUSEA OR VOMITING 12/22/17 18:15 01/01/18 10:02 Senna/Docusate Sodium (Mary Kay-Colace) 1 tab BID PO 12/22/17 21:00 01/02/18 09:00 Albuterol/ Ipratropium (Duoneb Neb) 1 ampule Q4HR NEB PRN NEB SOB/WHEEZING 12/22/17 20:15 01/01/18 10:08 Zolpidem Tartrate (Ambien) 5 mg HS PRN PO INSOMNIA 12/22/17 20:15 12/26/17 20:30 Pantoprazole Sodium (Protonix) 40 mg Q12HR PO 12/22/17 21:00 01/01/18 08:52 Megestrol Acetate (Megace Liq) 800 mg DAILY PO 12/23/17 09:00 01/03/18 08:29 Budesonide/ Formoterol Fumarate (Symbicort 160-4.5 Mcg Inh) 1 puff Q12HR INH 12/22/17 21:00 01/01/18 08:53 Aspirin (Ecotrin Ec) 81 mg DAILY PO 12/23/17 09:00 01/01/18 08:52 Atorvastatin Calcium (Lipitor) 80 mg DAILY PO 12/23/17 09:00 01/05/18 09:04 Multivitamins (Theragran) 1 tab DAILY PO 12/23/17 09:00 01/05/18 09:04 Heparin Sodium (Porcine) (Heparin Central Flush) 250 units UNSCH PRN IV FLUSH SEE PROTOCOL 12/22/17 20:30 12/27/17 20:27 Insulin Aspart (NovoLOG SUPPLEMENTAL SCALE) 1 ACHS SLIDING SCALE SQ 12/22/17 21:00 01/01/18 21:00 Guaifenesin/ Dextromethorphan (Robitussin Dm 200-20 Mg/10 ml Liq) 10 ml Q4H PRN PO cough interfering with rest 12/22/17 21:00 12/26/17 18:27 Guaifenesin (Mucinex Er) 600 mg BID PO 12/23/17 21:00 01/01/18 08:52 Allopurinol (Zyloprim) 300 mg DAILY PO 12/26/17 09:00 01/05/18 09:04 Acetaminophen (Tylenol) 650 mg Q4H PRN PO FEVER>[id number] 12/26/17 14:45 12/26/17 20:32 Vancomycin HCl 1500 mg/Sodium Chloride 515 ml @ 250 mls/hr Q12H IV 12/27/17 15:00 Future Hold 01/03/18 03:40 Morphine Sulfate (Morphine Inj) 2 mg Q2HR PRN IV PUSH pain3-5 12/27/17 15:30 12/31/17 21:18 Morphine Sulfate (Morphine Inj) 4 mg Q2HR PRN IV PUSH PAIN SCALE 6 TO 8 12/27/17 15:45 12/29/17 03:43 Acetaminophen (Tylenol) 650 mg Q4H PRN PO SEE LABEL COMMENTS 12/31/17 16:30 12/31/17 21:19 Calcium Carbonate (Tums Chew) 500 mg Q12HR PRN CHEW indigestion 12/31/17 16:15 01/01/18 05:27 Prednisone (Deltasone) 10 mg BID PO 01/01/18 21:00 01/05/18 09:03 Fentanyl Citrate 250 ml @ 0 mls/hr TITRATE PRN IV SEDATION 01/01/18 15:15 01/05/18 04:37 Chlorhexidine Gluconate (Peridex 0.12% Liq) 15 ml BID@08,20 MT 01/01/18 20:00 01/05/18 08:59 Norepinephrine Bitartrate 250 ml @ 7.5 mls/hr TITRATE PRN IV Blood pressure management 01/01/18 17:00 01/02/18 21:09 Filgrastim 480 mcg/Dextrose 26.6 ml @ 53.2 mls/hr DAILY@14 IV 01/02/18 14:00 01/04/18 14:42 Propofol 100 ml @ 2.757 mls/ hr TITRATE PRN IV SEDATION 01/02/18 11:15 01/05/18 05:44 Micafungin Sodium 100 mg/Sodium Chloride 100 ml @ 100 mls/hr Q24H IV 01/02/18 13:00 01/04/18 12:06 Albuterol/ Ipratropium (Duoneb Neb) 1 ampule Q6HR NEB NEB 01/03/18 10:00 01/05/18 07:55 Dextrose 1,000 ml @ 75 mls/hr [id number] IV 01/04/18 07:00 01/05/18 04:59 Objective Remarks GENERAL: Elderly male resting in bed intubated and sedated SKIN: Warm and dry. HEAD: Normocephalic. EYES: No injection or drainage. NECK: Supple, trachea midline. CARDIOVASCULAR: Regular rate and rhythm without murmurs. RESPIRATORY: Clear anteriorly. GASTROINTESTINAL: Abdomen soft, non-tender, nondistended. EXTREMITIES: No cyanosis, or edema. 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 Continue Neupogen for now. Await results from CT brain. Supportive care. 01/04: remains on vent. Off pf pressors. Pancytopenia with Neutropenia. Continue neupogen. Vent management per Auto Bumper Straightener. Extensive d/w and DIL ( DAY TREATMENT CLINICIAN/ART THERAPIST) . answered their questions. Continue maximal support. 01/03: Continue Neupogen. Transfuse 1 unit packed red blood cells today for hemoglobin of 7.5. Monitor CBC. 01/02: patient remains intubated, sedated. start Neupogen for neutropenia + infection 01/01: patient in respiratory failure. intubated and transferring to intensive care. 12/31: C. difficile negative. Bone marrow biopsy shows no lymphoma involvement. Cytology from thoracentesis pending. Transfuse 1 unit PRBC for symptomatic with hgb 7.7. Patient would benefit from inpatient rehab for strengthening 12/28: continue solu-medrol. await thoracentesis. consult OT. 12/27: start Solu-medrol 40mg IV q 6. consult pulmonology for worsening infiltrates, pleural effusions. monitor CBC, counts dropping. 12/26: CT chest shows Bilateral Pl effusion. Continue aggressive diuresis. Had CHOP C1D1 yesterday. Tolerated well. Next chemo in 3 weeks as outpt. Continue allopurinol and prednisone. 12/25: CTA shows no PE. +LAD, PE. dyspnea likely d/t lymphoma. will give Solu- medrol 1g IV and start CHOP today. Anaplastic large cell, non-Hodgkin's lymphoma, at least stage III. --unclear whether he has any B symptoms, but this could be most likely given that he has significant weight loss, which is one of the symptoms of lymphoma. --Leukocytosis, anemia and neutrophilia, most likely due to bone marrow involvement by the lymphoma until proven otherwise. (2) Malnutrition ICD Codes: E46 - Unspecified protein-calorie malnutrition Plan: --tube feeds stopped at 715AM on 01/01/18 d/t inability to tolerate tube feeds. (3) Decubitus skin ulcer ICD Codes: L89.90 - Pressure ulcer of unspecified site, unspecified stage Plan: --wound care following. (4) Respiratory failure ICD Codes: J96.90 - Respiratory failure, unspecified, unspecified whether with hypoxia or hypercapnia Plan: --d/t aspiration from tube feeds --CTA showed no PE. --d/t pleural effusions, going for thoracentesis, 12/28 --s/p CHOP chemotherapy and Solu-Medrol 1G IV --pulmonology following, appreciate recommendations (5) Pancytopenia due to antineoplastic chemotherapy ICD Codes: D61.810 - Antineoplastic chemotherapy induced pancytopenia; T45.1X5A - Adverse effect of antineoplastic and immunosuppressive drugs, initial encounter Plan: --Neupogen started on 01/02. --monitor and transfuse as needed (6) Renal insufficiency ICD Codes: N28.9 - Disorder of kidney and ureter, unspecified Plan: --Nephrology consulted Assessment 72y/o male with newly diagnosed anaplastic large cell NHL. h/o COPD, hypercholesterolemia, hypertension, history of previous stroke. HPI: started 8 weeks ago with a cough mixed with greenish phlegm and shortness of breath. CT cap showed diffuse lymphadenopathy on both sides of the diaphragm. PET scan showed increased uptake in the lymph nodes involving the neck, chest, mediastinal and hilar area, retroperitoneum and pelvic lymph nodes. biopsy of the left neck mass=anaplastic large cell NHL echocardiogram, LVEF=55-70%. MUGA scan, showed EF of 60%. Attending Statement The exam, history, and the medical decision-making described in the above note were completed with the assistance of the mid-level provider. I reviewed and agree with the findings presented. I attest that I had a [id number] encounter with the patient on the same day, and personally performed and documented my assessment and findings in the medical record. anaplastic large cell lymphoma: C1D1 CHOP on 12/25/2017. Cytopenia: expected due to chemotherapy. continue to trend counts. Continue neupogen. respiratory failure/aspiration pneumonia: on broad spectrum antibiotics. Intubated and sedated. renal insufficiency: due to hypotension, nephrology following Problem Qualifiers (1) Malnutrition: Qualified Codes: E46 - Unspecified protein-calorie malnutrition Tawanna Hugo Jan 05, 2018 10:28 Sandra Jackman MD Jan 05, 2018 18:06
--- NOTE | 2018-01-05 12:16 | RADRPT ---
EXAM DATE/TIME: 01/05/2018 11:41 [facility] COMPARISON: No previous studies available for comparison. INDICATIONS : Altered mental status. RADIATION DOSE: 51.55 CTDIvol (mGy) MEDICAL HISTORY : Stroke. Hypertension. Lymphoma. SURGICAL HISTORY : None. ENCOUNTER: Initial ACUITY: 1 day PAIN SCALE: Non-responsive LOCATION: Bilateral head TECHNIQUE: Multiple contiguous axial images were obtained of the head. Using automated exposure control and adj ustment of the mA and/or kV according to patient size, radiation dose was kept as low as reasonably a chievable to obtain optimal diagnostic quality images. DICOM format image data is available electro nically for review and comparison. FINDINGS: CEREBRUM: The ventricles are normal for age. There is an old area of lacunar infarction in the left basal gang otoniel. No evidence of midline shift, mass lesion, hemorrhage or acute infarction. No extra-axial fluid collections are seen. POSTERIOR FOSSA: The cerebellum and brainstem are intact. The 4th ventricle is midline. The cerebellopontine angle i s unremarkable. EXTRACRANIAL: The visualized portion of the orbits is intact. There is fluid within the right mastoid air cells. SKULL: The calvaria is intact. No evidence of skull fracture. CONCLUSION: 1. No acute abnormality is seen. 2. Old lacunar infarct at the left basal ganglia. 3. Fluid in the mastoid air cells on the right. Andres Valero MD on January 05, 2018 at 12:11 Board Certified Radiologist. This report was verified electronically.
[2018-01-05 12:40] LABS: BACTERIA, URINE FEW /hpf; BILIRUBIN, URINE NEG (NEG); BLOOD, URINE MOD (NEG); GLUCOSE,URINE NEG (NEG); KETONE, URINE NEG (NEG); NITRITE,URINE NEG (NEG); PH, URINE 5.5 (5.0-8.5); SQUAMOUS EPITHELIAL CELL URINE 1 /hpf (0-5); URINE COLOR YELLOW (YELLW/STRAW); URINE LEUKOCYTE ESTERASE NEG (NEG)
[2018-01-05] MEDS: MICAFUNGIN INJ 100 MG in SODIUM CHLORIDE 0.9% INJ 100 ML IV SCH (12:53)
[2018-01-05 13:03] LABS: CREATININE, RANDOM URINE 81.8 MG/DL
--- NOTE | 2018-01-05 13:18 | HHI.PR ---
Subjective Remarks The patient is critically ill. History on a mechanical ventilator. He is still on pressors as well. The patient is known to me from [facility]. Objective Vital Signs Date Time Temp Pulse Resp B/P (MAP) Pulse Ox O2 Delivery O2 Flow Rate FiO2 01/05/18 12:00 64 01/05/18 12:00 40 01/05/18 11:56 98 100 01/05/18 10:00 63 01/05/18 08:00 70 01/05/18 08:00 40 01/05/18 08:00 97.5 86 18 116/67 (83) 94 01/05/18 07:57 96 40 01/05/18 07:00 100 Mechanical Ventilator 40 01/05/18 06:00 78 01/05/18 06:00 98 40 01/05/18 04:00 70 01/05/18 04:00 40 01/05/18 04:00 98.2 70 18 98/59 (72) 97 01/05/18 03:45 98 40 01/05/18 02:00 71 01/05/18 00:00 40 01/05/18 00:00 81 01/05/18 00:00 98.2 70 18 98/59 (72) 100 01/04/18 22:00 92 01/04/18 21:06 100 40 01/04/18 20:00 85 01/04/18 20:00 97.8 85 18 132/61 (84) 100 01/04/18 20:00 40 01/04/18 19:00 100 Mechanical Ventilator 40 01/04/18 18:00 82 01/04/18 17:52 98 40 01/04/18 16:00 82 01/04/18 16:00 40 01/04/18 14:00 84 I/O 01/04/18 01/04/18 01/04/18 01/05/18 01/05/18 01/05/18 07:00 15:00 23:00 07:00 15:00 23:00 Intake Total 100 ml 1450 ml Output Total 625 ml 540 ml 750 ml Balance -625 ml -440 ml 700 ml IV Total 100 ml 1450 ml Output Urine Total 300 ml 290 ml 200 ml Stool Total 300 ml Gastric Drainage Total 250 ml 250 ml Drainage Total 325 ml # Bowel Movements 2 0 0 Result Diagram: 01/05/18 0435 01/05/18 0435 Procedures PEG tube placement. Bone Marrow Biopsy 12/25/17 Objective Remarks General - sedated, ill-appearing, intubated HEENT -atraumatic CV - irregular S1 and S2, no murmurs, rubs or gallops Chest - scattered coarse breath sounds bilateral, good air entry, no wheezes, [id number] right chest -site remains clean Abdomen - soft, obese, non-tender, BS present, no hepatomegaly, no splenomegaly , + PEG Extremities - 3+ edema, + peripheral pulses, warm, no cyanosis Neuro - intubated, pupils equal and reactive, moves all 4 extremities, but does not follow commands, withdraws to pain Assessment and Plan Assessment and Plan 1. Acute hypoxic and hypercapnic respiratory failure 2. Likely aspiration pneumonia 3. Shock 4. Severe neutropenia 5. NHL, received CHOP therapy on 12/25 . Pancytopenia -worsening thrombocytopenia, hemoglobin better post PRBC transfusion 1. Continue current vent settings 2. Try to optimize volume status and achieve negative balance as possible however understandably it would be limited because of the shock 3. Broad-spectrum antibiotics I do not believe he is a candidate for any weaning of the ventilator at this point. I had a long discussion with the family at the bedside in details. Medical management is mainly by the ticket taker ferryboat at this point. Cm Mckee MD Jan 05, 2018 13:18
--- NOTE | 2018-01-05 13:55 | PD.CONS ---
HPI Service Nephrology Consult Requested By Dr. Montoya Reason for Consult Acute on chronic kidney Primary Care Physician Unknown History of Present Illness Patient is a 72-year-old white male with history of large cell lymphoma, COPD, CVA who not doing well and has history of chemotherapy and developed low white cell count and also had respiratory distress admitted in the intensive care unit , I have been asked to assess due to poor renal function, he is being treated for pneumonia. He had hypotension and he had received fluids his creatinine was 2.15, sodium is 151 Review of Systems ROS Limitations: Clinical Condition Past Family Social History Allergies: Coded Allergies: hydrocodone (Verified Adverse Reaction, Mild, 12/22/17) Hallucinations Past Medical History NSVT while at [facility] CVA without residual deficits Hyperlipidemia Hypertension COPD Bilateral lower extremity neuropathy . Past Surgical History Port-A-Cath placed 12/20/2017 Back surgery [facility] in [place] Active Ordered Medications Current Medications Medications (Trade) Dose Ordered Sig/Candace Route Start Time Stop Time Status Last Admin (NS Flush) 2 ml UNSCH PRN IV FLUSH 12/22/17 18:15 (NS Flush) 2 ml BID IV FLUSH 12/22/17 21:00 01/04/18 21:00 (Zofran Inj) 4 mg Q6H PRN IVP 12/22/17 18:15 01/01/18 10:02 (Narcan Inj) 0.4 mg UNSCH PRN IV PUSH 12/22/17 18:15 (Mary Kay-Colace) 1 tab BID PO 12/22/17 21:00 01/02/18 09:00 (Milk Of Magnesia Liq) 30 ml Q12H PRN PO 12/22/17 18:15 (Senokot) 17.2 mg Q12H PRN PO 12/22/17 18:15 (Lactulose Liq) 30 ml DAILY PRN PO 12/22/17 18:15 (Duoneb Neb) 1 ampule Q4HR NEB PRN NEB 12/22/17 20:15 01/01/18 10:08 (Ambien) 5 mg HS PRN PO 12/22/17 20:15 12/26/17 20:30 (Protonix) 40 mg Q12HR PO 12/22/17 21:00 01/01/18 08:52 (Megace Liq) 800 mg DAILY PO 12/23/17 09:00 01/03/18 08:29 (Symbicort 160-4.5 Mcg Inh) 1 puff Q12HR INH 12/22/17 21:00 01/01/18 08:53 (Ecotrin Ec) 81 mg DAILY PO 12/23/17 09:00 01/01/18 08:52 (Lipitor) 80 mg DAILY PO 12/23/17 09:00 01/05/18 09:04 (Theragran) 1 tab DAILY PO 12/23/17 09:00 01/05/18 09:04 (Heparin Central Flush) 500 units UNSCH IV FLUSH 12/22/17 20:30 (NS Flush) 5 ml UNSCH PRN IVF 12/22/17 20:30 (Heparin Central Flush) 250 units UNSCH PRN IV FLUSH 12/22/17 20:30 12/27/17 20:27 (D50w (Vial) Inj) 50 ml UNSCH PRN IV PUSH 12/22/17 20:30 (Glucagon Inj) 1 mg UNSCH PRN OTHER 12/22/17 20:30 (NovoLOG SUPPLEMENTAL SCALE) 1 ACHS SLIDING SCALE SQ 12/22/17 21:00 01/01/18 21:00 (Robitussin Dm 200-20 Mg/10 ml Liq) 10 ml Q4H PRN PO 12/22/17 21:00 12/26/17 18:27 (Mucinex Er) 600 mg BID PO 12/23/17 21:00 01/01/18 08:52 (Tessalon) 100 mg TID PRN PO 12/25/17 12:00 (Zyloprim) 300 mg DAILY PO 12/26/17 09:00 01/05/18 09:04 (Tylenol) 650 mg Q4H PRN PO 12/26/17 14:45 12/26/17 20:32 Pharmacy Profile Note 0 ml @ 0 mls/hr UNSCH OTHER 12/27/17 12:45 Vancomycin HCl 1500 mg/Sodium Chloride 515 ml @ 250 mls/hr Q12H IV 12/27/17 15:00 Future Hold 01/03/18 03:40 (Morphine Inj) 2 mg Q2HR PRN IV PUSH 12/27/17 15:30 12/31/17 21:18 (Morphine Inj) 4 mg Q2HR PRN IV PUSH 12/27/17 15:45 12/29/17 03:43 (Morphine Inj) 6 mg Q2HR PRN IV PUSH 12/27/17 17:15 (Tylenol) 650 mg Q4H PRN PO 12/31/17 16:30 12/31/17 21:19 (Benadryl) 25 mg Q4H PRN PO 12/31/17 16:30 (Tums Chew) 500 mg Q12HR PRN CHEW 12/31/17 16:15 01/01/18 05:27 (Deltasone) 10 mg BID PO 01/01/18 21:00 01/05/18 09:03 Fentanyl Citrate 250 ml @ 0 mls/hr TITRATE PRN IV 01/01/18 15:15 01/05/18 04:37 (Brethine Inj) 1 mg UNSCH PRN SQ 01/01/18 16:45 (Peridex 0.12% Liq) 15 ml BID@08,20 MT 01/01/18 20:00 01/05/18 08:59 Norepinephrine Bitartrate 250 ml @ 7.5 mls/hr TITRATE PRN IV 01/01/18 17:00 01/02/18 21:09 (Brethine Inj) 1 mg UNSCH PRN SQ 01/01/18 17:00 Filgrastim 480 mcg/Dextrose 26.6 ml @ 53.2 mls/hr DAILY@14 IV 01/02/18 14:00 01/05/18 14:29 Propofol 100 ml @ 2.757 mls/ hr TITRATE PRN IV 01/02/18 11:15 01/05/18 14:29 Micafungin Sodium 100 mg/Sodium Chloride 100 ml @ 100 mls/hr Q24H IV 01/02/18 13:00 01/05/18 12:53 (Duoneb Neb) 1 ampule Q6HR NEB NEB 01/03/18 10:00 01/05/18 15:10 Dextrose 1,000 ml @ 75 mls/hr [id number] IV 01/04/18 07:00 01/05/18 04:59 Meropenem 1000 mg/ Sodium Chloride 100 ml @ 200 mls/hr Q12H IV 01/05/18 16:00 01/05/18 16:11 Albumin Human 500 ml @ 250 mls/hr Q12H IV 01/05/18 14:00 01/05/18 14:28 Family History Noncontributory Social History not Physical Exam Vital Signs Vital Signs Date Time Temp Pulse Resp B/P (MAP) Pulse Ox O2 Delivery O2 Flow Rate FiO2 01/05/18 12:00 64 01/05/18 12:00 40 01/05/18 12:00 97.4 82 18 101/62 (75) 100 01/05/18 11:56 98 100 01/05/18 10:00 63 01/05/18 08:00 70 01/05/18 08:00 40 01/05/18 08:00 97.5 86 18 116/67 (83) 94 01/05/18 07:57 96 40 01/05/18 07:00 100 Mechanical Ventilator 40 01/05/18 06:00 78 01/05/18 06:00 98 40 01/05/18 04:00 70 01/05/18 04:00 40 01/05/18 04:00 98.2 70 18 98/59 (72) 97 01/05/18 03:45 98 40 01/05/18 02:00 71 01/05/18 00:00 40 01/05/18 00:00 81 01/05/18 00:00 98.2 70 18 98/59 (72) 100 01/04/18 22:00 92 01/04/18 21:06 100 40 01/04/18 20:00 85 01/04/18 20:00 97.8 85 18 132/61 (84) 100 01/04/18 20:00 40 01/04/18 19:00 100 Mechanical Ventilator 40 01/04/18 18:00 82 01/04/18 17:52 98 40 01/04/18 16:00 82 01/04/18 16:00 40 01/04/18 14:00 84 Physical Exam GENERAL: Well-nourished, well-developed patient. On ventilator SKIN: Warm and dry. HEAD: Normocephalic. EYES: No scleral icterus. No injection or drainage. NECK: Supple, trachea midline. No JVD or lymphadenopathy. CARDIOVASCULAR: Irregular RESPIRATORY: Breath sounds diminished at bases GASTROINTESTINAL: Abdomen soft,distended. EXTREMITIES: No cyanosis, 1+ edema. NEUROLOGICAL: Lethargic and confused Laboratory Laboratory Tests Test 3/24/18 04:35 01/05/18 05:11 01/05/18 10:40 White Blood Count 0.3 Red Blood Count 3.10 Hemoglobin 8.9 Hematocrit 25.9 Mean Corpuscular Volume 83.6 Mean Corpuscular Hemoglobin 28.6 Mean Corpuscular Hemoglobin Concent 34.2 Red Cell Distribution Width 18.3 Platelet Count 46 Mean Platelet Volume 10.6 CBC Comment AUTO DIFF Differential Total Cells Counted 20 Neutrophils % (Manual) 15 Band Neutrophils % 40 Lymphocytes % 30 Monocytes % 5 Neutrophils # (Manual) 0.2 Metamyelocytes 10 Nucleated Red Blood Cells 5 Differential Comment FINAL DIFF MANUAL Platelet Estimate LOW Platelet Morphology Comment ENLARGED Ovalocytes 1+ Blood Urea Nitrogen 48 Creatinine 2.15 Random Glucose 147 Total Protein 4.2 Albumin 1.0 Calcium Level 8.2 Phosphorus Level 3.0 Magnesium Level 2.4 Alkaline Phosphatase 55 Aspartate Amino Transf (AST/SGOT) 16 Alanine Aminotransferase (ALT/SGPT) 24 Total Bilirubin 0.3 Sodium Level 151 Potassium Level 3.7 Chloride Level 117 Carbon Dioxide Level 25.8 Anion Gap 8 Estimat Glomerular Filtration Rate 30 Random Vancomycin Level 35.9 Blood Gas Puncture Site RT BRACHIAL Blood Gas Patient Temperature 98.6 Blood Gas HCO3 25 Blood Gas Base Excess 1.1 Blood Gas Oxygen Saturation 94 Arterial Blood pH 7.44 Arterial Blood Partial Pressure CO2 37 Arterial Blood Partial Pressure O2 74 Arterial Blood Oxygen Content 12.1 Arterial Blood Carboxyhemoglobin 1.2 Arterial Blood Methemoglobin 0.9 Blood Gas Hemoglobin 9.1 Oxygen Delivery Device VENTILATOR Blood Gas Ventilator Setting COMMENT Urine Color YELLOW Urine Turbidity CLOUDY Urine pH 5.5 Urine Specific [place] 1.020 Urine Protein 100 Urine Glucose (UA) NEG Urine Ketones NEG Urine Occult Blood MOD Urine Nitrite NEG Urine Bilirubin NEG Urine Urobilinogen LESS THAN 2.0 Urine Leukocyte Esterase NEG Urine RBC 2 Urine WBC 3 Urine Squamous Epithelial Cells 1 Urine Bacteria FEW Urine Random Creatinine 81.8 Urine Random Sodium 26 Date/Time Source Procedure Growth Status 01/01/18 17:57 Blood Peripheral Aerobic Blood Culture - Preliminary NO GROWTH IN 4 DAYS Resulted 01/01/18 17:57 Blood Peripheral Anaerobic Blood Culture - Preliminary NO GROWTH IN 4 DAYS Resulted 12/28/17 12:15 Fluid Pleural Fluid Fungal Smear - Final NO FUNGAL ELEMENTS SEEN. Resulted 12/28/17 12:15 Fluid Pleural Fluid Fungal Culture - Preliminary NO GROWTH IN 1 WEEK Resulted 01/01/18 17:15 Sputum Endotracheal Gram Stain - Final Complete 01/01/18 17:15 Sputum Endotracheal Sputum Culture - Final HEAVY GROWTH NORMAL RESPIRATORY LISA Complete 01/01/18 17:15 Urine Catheterized Urine Urine Culture - Final NO GROWTH IN 48 HOURS. Complete Result Diagram: 01/05/18 0435 01/05/18 0435 Imaging Last Impressions Chest X-Ray 01/04/18 0600 Signed Impressions: Service Date/Time: Thursday, January 04, 2018 03:22 - CONCLUSION: 1. Interval improvement in bibasilar opacity. 2. The patient remains intubated. Bijan Loredo MD Small Bowel X-Ray 01/03/18 0000 Signed Impressions: Service Date/Time: December 14:27 - CONCLUSION: 1. No leakage identified on injection through gastrostomy tube. No small bowel obstruction or significant dilatation. Elbert Carrasquillo MD Abdomen/Pelvis CT 01/02/18 0000 Signed Impressions: Service Date/Time: Tuesday, January 02, 2018 21:38 - CONCLUSION: 1. Free intraperitoneal air of unknown etiology. On the supine view most of the free air is around the gastrostomy tube and tip of the nasogastric tube as discussed above. 2. Mild to moderate ascites. Moderate anasarca. 3. Moderate bilateral effusions with basilar atelectasis. 4. Nonobstructing right renal calculus. Hay catheter in bladder. Elbert Carrasquillo MD Chest CT 12/30/17 0000 Signed Impressions: Service Date/Time: Saturday, December 30, 2017 21:13 - CONCLUSION: 1. Free intraperitoneal air in the upper abdomen of uncertain etiology. There is a gastrostomy present. 2. Moderate bilateral pleural effusions with compressive atelectasis. Patchy air space consolidation in the right upper lobe. 3. Moderate anasarca and ascites. 4. Findings called to the floor at the time of dictation. Elbert Carrasquillo MD Chest Ultrasound 12/27/17 0000 Signed Impressions: Service Date/Time: December 21:39 - CONCLUSION: Large left pleural effusion and would be amenable to thoracentesis. Frandy was made on the overlying skin. Andres Parekh MD Bone Biopsy CT 12/25/17 1142 Signed Impressions: Service Date/Time: Monday, December 25, 2017 12:32 - CONCLUSION: 1. Uncomplicated CT guided bone marrow aspirate. 2. Uncomplicated CT guided bone marrow biopsy. Lee Mijares MD CT Angiography 12/25/17 0000 Signed Impressions: Service Date/Time: Monday, December 25, 2017 09:26 - CONCLUSION: 1. No CT evidence for pulmonary artery embolism. 2. Moderate to large bilateral pleural effusions with associated compressive atelectasis at the lung bases. 3. 8mm nodule in the right middle lobe. Followup CT examination may be performed at 6 months to document stability if this has not been evaluated previously. 4. Very mildly prominent mediastinal and hilar nodes and partially imaged upper abdominal lymphadenopathy in this patient with history of lymphoma. 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
[2018-01-05] MEDS: ALBUMIN 5% INJ 500 ML IV SCH (14:28)
[2018-01-05] MEDS: FILGRASTIM INJ 480 MCG in DEXTROSE 5% IN WATER INJ 25 ML IV SCH ×2 (14:29)
--- NOTE | 2018-01-05 16:23 | HHI.GIFU ---
Subjective Remarks Per RN who had pt yesterday and today- still had significant amount being suctioned from PEG and NG Has had no output since canister changed early this AM Rectal bag with small amount of loose, brown stool Objective Vitals I&O Vital Signs Date Time Temp Pulse Resp B/P (MAP) Pulse Ox O2 Delivery O2 Flow Rate FiO2 01/05/18 16:00 40 01/05/18 16:00 68 01/05/18 15:10 99 40 01/05/18 14:00 65 01/05/18 12:00 64 01/05/18 12:00 40 01/05/18 12:00 97.4 82 18 101/62 (75) 100 01/05/18 11:56 98 100 01/05/18 10:00 63 01/05/18 08:00 70 01/05/18 08:00 40 01/05/18 08:00 97.5 86 18 116/67 (83) 94 01/05/18 07:57 96 40 01/05/18 07:00 100 Mechanical Ventilator 40 01/05/18 06:00 78 01/05/18 06:00 98 40 01/05/18 04:00 70 01/05/18 04:00 40 01/05/18 04:00 98.2 70 18 98/59 (72) 97 01/05/18 03:45 98 40 01/05/18 02:00 71 01/05/18 00:00 40 01/05/18 00:00 81 01/05/18 00:00 98.2 70 18 98/59 (72) 100 01/04/18 22:00 92 01/04/18 21:06 100 40 01/04/18 20:00 85 01/04/18 20:00 97.8 85 18 132/61 (84) 100 01/04/18 20:00 40 01/04/18 19:00 100 Mechanical Ventilator 40 01/04/18 18:00 82 01/04/18 17:52 98 40 I/O 01/04/18 01/04/18 01/04/18 01/05/18 01/05/18 01/05/18 07:00 15:00 23:00 07:00 15:00 23:00 Intake Total 100 ml 1450 ml Output Total 625 ml 540 ml 750 ml Balance -625 ml -440 ml 700 ml IV Total 100 ml 1450 ml Output Urine Total 300 ml 290 ml 200 ml Stool Total 300 ml Gastric Drainage Total 250 ml 250 ml Drainage Total 325 ml # Bowel Movements 2 0 0 Laboratory Laboratory Tests Test 01/05/18 04:35 01/05/18 05:11 01/05/18 10:40 White Blood Count 0.3 Red Blood Count 3.10 Hemoglobin 8.9 Hematocrit 25.9 Mean Corpuscular Volume 83.6 Mean Corpuscular Hemoglobin 28.6 Mean Corpuscular Hemoglobin Concent 34.2 Red Cell Distribution Width 18.3 Platelet Count 46 Mean Platelet Volume 10.6 CBC Comment AUTO DIFF Differential Total Cells Counted 20 Neutrophils % (Manual) 15 Band Neutrophils % 40 Lymphocytes % 30 Monocytes % 5 Neutrophils # (Manual) 0.2 Metamyelocytes 10 Nucleated Red Blood Cells 5 Differential Comment FINAL DIFF MANUAL Platelet Estimate LOW Platelet Morphology Comment ENLARGED Ovalocytes 1+ Blood Urea Nitrogen 48 Creatinine 2.15 Random Glucose 147 Total Protein 4.2 Albumin 1.0 Calcium Level 8.2 Phosphorus Level 3.0 Magnesium Level 2.4 Alkaline Phosphatase 55 Aspartate Amino Transf (AST/SGOT) 16 Alanine Aminotransferase (ALT/SGPT) 24 Total Bilirubin 0.3 Sodium Level 151 Potassium Level 3.7 Chloride Level 117 Carbon Dioxide Level 25.8 Anion Gap 8 Estimat Glomerular Filtration Rate 30 Random Vancomycin Level 35.9 Blood Gas Puncture Site RT BRACHIAL Blood Gas Patient Temperature 98.6 Blood Gas HCO3 25 Blood Gas Base Excess 1.1 Blood Gas Oxygen Saturation 94 Arterial Blood pH 7.44 Arterial Blood Partial Pressure CO2 37 Arterial Blood Partial Pressure O2 74 Arterial Blood Oxygen Content 12.1 Arterial Blood Carboxyhemoglobin 1.2 Arterial Blood Methemoglobin 0.9 Blood Gas Hemoglobin 9.1 Oxygen Delivery Device VENTILATOR Blood Gas Ventilator Setting COMMENT Urine Color YELLOW Urine Turbidity CLOUDY Urine pH 5.5 Urine Specific [place] 1.020 Urine Protein 100 Urine Glucose (UA) NEG Urine Ketones NEG Urine Occult Blood MOD Urine Nitrite NEG Urine Bilirubin NEG Urine Urobilinogen LESS THAN 2.0 Urine Leukocyte Esterase NEG Urine RBC 2 Urine WBC 3 Urine Squamous Epithelial Cells 1 Urine Bacteria FEW Urine Random Creatinine 81.8 Urine Random Sodium 26 Date/Time Source Procedure Growth Status 01/01/18 17:57 Blood Peripheral Aerobic Blood Culture - Preliminary NO GROWTH IN 4 DAYS Resulted 01/01/18 17:57 Blood Peripheral Anaerobic Blood Culture - Preliminary NO GROWTH IN 4 DAYS Resulted 12/28/17 12:15 Fluid Pleural Fluid Fungal Smear - Final NO FUNGAL ELEMENTS SEEN. Resulted 12/28/17 12:15 Fluid Pleural Fluid Fungal Culture - Preliminary NO GROWTH IN 1 WEEK Resulted 01/01/18 17:15 Sputum Endotracheal Gram Stain - Final Complete 01/01/18 17:15 Sputum Endotracheal Sputum Culture - Final HEAVY GROWTH NORMAL RESPIRATORY LISA Complete 01/01/18 17:15 Urine Catheterized Urine Urine Culture - Final NO GROWTH IN 48 HOURS. Complete Imaging Last Impressions Chest X-Ray 01/04/18 0600 Signed Impressions: Service Date/Time: Thursday, January 04, 2018 03:22 - CONCLUSION: 1. Interval improvement in bibasilar opacity. 2. The patient remains intubated. Bijan Loredo MD Small Bowel X-Ray 01/03/18 0000 Signed Impressions: Service Date/Time: December 14:27 - CONCLUSION: 1. No leakage identified on injection through gastrostomy tube. No small bowel obstruction or significant dilatation. Elbert Carrasquillo MD Abdomen/Pelvis CT 01/02/18 0000 Signed Impressions: Service Date/Time: Tuesday, January 02, 2018 21:38 - CONCLUSION: 1. Free intraperitoneal air of unknown etiology. On the supine view most of the free air is around the gastrostomy tube and tip of the nasogastric tube as discussed above. 2. Mild to moderate ascites. Moderate anasarca. 3. Moderate bilateral effusions with basilar atelectasis. 4. Nonobstructing right renal calculus. Hay catheter in bladder. Elbert Carrasquillo MD Chest CT 12/30/17 0000 Signed Impressions: Service Date/Time: Saturday, December 30, 2017 21:13 - CONCLUSION: 1. Free intraperitoneal air in the upper abdomen of uncertain etiology. There is a gastrostomy present. 2. Moderate bilateral pleural effusions with compressive atelectasis. Patchy air space consolidation in the right upper lobe. 3. Moderate anasarca and ascites. 4. Findings called to the floor at the time of dictation. Elbert Carrasquillo MD Chest Ultrasound 12/27/17 0000 Signed Impressions: Service Date/Time: December 21:39 - CONCLUSION: Large left pleural effusion and would be amenable to thoracentesis. Frandy was made on the overlying skin. Andres Parekh MD Bone Biopsy CT 12/25/17 1142 Signed Impressions: Service Date/Time: Monday, December 25, 2017 12:32 - CONCLUSION: 1. Uncomplicated CT guided bone marrow aspirate. 2. Uncomplicated CT guided bone marrow biopsy. Lee Mijares MD CT Angiography 12/25/17 0000 Signed Impressions: Service Date/Time: Monday, December 25, 2017 09:26 - CONCLUSION: 1. No CT evidence for pulmonary artery embolism. 2. Moderate to large bilateral pleural effusions with associated compressive atelectasis at the lung bases. 3. 8mm nodule in the right middle lobe. Followup CT examination may be performed at 6 months to document stability if this has not been evaluated previously. 4. Very mildly prominent mediastinal and hilar nodes and partially imaged upper abdominal lymphadenopathy in this patient with history of lymphoma. Miguel Ashton MD Physical Exam HEENT: Normocephalic; atraumatic; no jaundice. CHEST: Respirations synchronized with vent, mechanically ventilated via ETT CARDIAC: RRR ABDOMEN: Soft, nondistended, PEG site clean and dry to LIWS; bowel sounds active. Rectal bag. SKIN: Normal; no rash; no jaundice. CLEANING TEAM MEMBER: Sedated, unresponsive Assessment and Plan Plan Initial consult Weight loss with new dx of naplastic large cell lymphoma- Tx from [facility] for oncology treatment Pancytopenia- Pt on Neupogen, Neutropenic precautions, antifungal and abx per ID (01/03) Reconsult for PEG tube eval EGD with PEG placement (12/24) --> Ulcer in the first portion of the duodenum. Otherwise normal Pt was on Tube feeding Jevity @ 60 mL/hr- stopped because pt was not tolerating. He became hypoxic, O2 not sustained despite NRB so was intubated, during intubation a significant amount of TF was noted to be aspirated. TF placed on hold. Unclear why pt has an OG tube, most likely placed during intubation. Abnormal CT findings --> Free intraperitoneal air of unknown etiology. On the supine view most of the free air is around the G-tbue and tip of OG tube. Mild to moderate ascites. Moderate anasarca. Currently PEG tube to LIWS with bile colored drainage, per sister in law at bedside, yesterday drainage was stool colored. (01/04) --> Per RN pt had 2 large, loose BMs this morning. PEG tube to LIWS, suction was turned off last night so unsure if output is decreasing. KUB With SBFT- Gastrografin through PEG notes no leakage identified on injection through G tube. No small bowel obstruction or significant dilation. If output decreasing through PEG ok to restart TF. Discussed with RN states she will monitor. (01/05) Per RN pt still had significant amount of output through OG and PEG tube yesterday so TF was not started. Output has decreased significantly today. No output in canister and it was changed early this AM. Will try to start trickle feeding today. Plan: - OK to restart TF- Jevity 1.5 at 10mL/hr - Monitor residuals - Monitor stool output - Further recommendations based on clinical course Pt has been seen and examined by myself and Dr. Cao and this note is written on her behalf Ny Villeda Jan 05, 2018 16:23
[2018-01-06] VITALS (19 sets, daily range): BP systolic 100–118; BP diastolic 56–62; PULSE 58–74; RESP 18; TEMP 97–97.9; O2SAT 96–100
[2018-01-06] MEDS: ALBUMIN 5% INJ 500 ML IV SCH ×2 (02:00→12:56)
[2018-01-06] MEDS: PROPOFOL 1000 MG/100 ML INJ 100 ML IV PRN ×5 (03:32→22:54)
[2018-01-06] MEDS: RESP: ALBUTEROL 2.5 MG/IPRATROPIUM 0.5 MG NEB (SCH) NEB ×4 (03:43→20:23)
[2018-01-06 04:34] LABS: HEMATOCRIT 22.6 % (39.0-51.0); HEMOGLOBIN 7.6 GM/DL (13.0-17.0); MEAN CELL VOLUME 83.3 FL (80.0-100.0); MEAN CORPUSCULAR HEMOGLOBIN 27.9 PG (27.0-34.0); MEAN CORPUSCULAR HGB CONC 33.4 % (32.0-36.0); PLATELET COUNT 56 TH/MM3 (150-450); RED BLOOD COUNT 2.71 MIL/MM3 (4.50-5.90); RED CELL DISTRIBUTION WIDTH 18.5 % (11.6-17.2); WHITE BLOOD COUNT 1.4 TH/MM3 (4.0-11.0)
[2018-01-06] MEDS: MEROPENEM INJ 1,000 MG in SODIUM CHLORIDE 0.9% INJ 100 ML IV SCH ×2 (04:36→15:40)
[2018-01-06 04:50] LABS: ALBUMIN 1.4 GM/DL (3.4-5.0); ALT (GPT) 19 U/L (12-78); AST (GOT) 16 U/L (15-37); BICARBONATE 26.5 MEQ/L (21.0-32.0); BLOOD UREA NITROGEN 51 MG/DL (7-18); CALCIUM 7.6 MG/DL (8.5-10.1); CHLORIDE 116 MEQ/L (98-107); GLOMERULAR FILTRATION RATE 28 ML/MIN (>89); GLUCOSE,RANDOM 109 MG/DL (74-106); MAGNESIUM 2.2 MG/DL (1.5-2.5); PHOSPHORUS 2.4 MG/DL (2.5-4.9); SODIUM (NA) 150 MEQ/L (136-145)
[2018-01-06 04:53] LABS: ALKALINE PHOSPHATASE 48 U/L (45-117); TOTAL BILIRUBIN ADULT 0.3 MG/DL (0.2-1.0); TOTAL PROTEIN 3.9 GM/DL (6.4-8.2)
--- NOTE | 2018-01-06 05:03 | RADRPT ---
EXAM DATE/TIME: 01/06/2018 03:14 [facility] COMPARISON: CHEST SINGLE AP, January 05, 2018, 6:43. INDICATIONS : Followup pulmonary infiltrates.. MEDICAL HISTORY : Stroke. Hypertension. Lymphoma. SURGICAL HISTORY : None. ENCOUNTER: Subsequent ACUITY: 2 weeks PAIN SCORE: Non-responsive. LOCATION: Bilateral chest FINDINGS: A single AP portable erect view of the chest was obtained again demonstrates the endotracheal tube in place with the tip 5-6 cm above the clem. The nasogastric tube and right-sided implantable port ca theter remain in place. Hazy perihilar and bibasilar opacities are again noted. The costophrenic angl es are blunted. The heart size is mildly enlarged. Multiple overlying electrocardiogram leads are pre sent. CONCLUSION: Perihilar and bibasal opacities without significant change. Bijan Loredo MD on January 06, 2018 at 5:00 Board Certified Radiologist. This report was verified electronically.
[2018-01-06 05:27] LABS: BANDS 15 % (0-6); DOHLE BODIES PRESENT (NONE SEEN); LYMPHOCYTES 8 % (9-44); NEUTROPHIL # MANUAL DIFF 1.3 TH/MM3 (1.8-7.7); POLYS (SEG NEUTROPHILS) 77 % (16-70)
[2018-01-06 05:28] LABS: ACANTHOCYTES OCC (NORMAL)
[2018-01-06] MEDS: CHLORHEXIDINE 0.12% (ORAL KIT) 15 ML CUP MT SCH ×2 (07:31→20:35)
[2018-01-06] MEDS: INSULIN ASPART SUPPLEMENTAL SCALE SQ SCH ×4 (07:31→21:00)
[2018-01-06] MEDS: BUDESONIDE-FORMOTEROL 160/4.5 MCG INHALER INH SCH ×2 (07:31→20:35)
[2018-01-06] MEDS: ALLOPURINOL 300 MG TAB PO SCH (08:01)
[2018-01-06] MEDS: predniSONE 10 MG TAB PO SCH ×2 (08:01→20:35)
[2018-01-06] MEDS: MEGESTROL ACETATE SUSP 400 MG/10 ML CUP PO SCH (08:01)
[2018-01-06] MEDS: DOCUSATE SODIUM 50 MG/SENNA 8.6 MG TAB PO SCH ×2 (08:01→20:35)
[2018-01-06] MEDS: ATORVASTATIN 80 MG TAB PO SCH (08:01)
[2018-01-06] MEDS: MULTIVITAMIN TAB PO SCH (08:01)
[2018-01-06] MEDS: PANTOPRAZOLE SOD 40 MG DELAYED RELEASE TAB PO SCH ×2 (08:01→20:35)
[2018-01-06] MEDS: ASPIRIN EC 81 MG TABEC PO SCH (08:01)
[2018-01-06] MEDS: SODIUM CHLORIDE 0.9% FLUSH 10 ML FLUSH IV FLUSH SCH ×2 (08:01→20:35)
[2018-01-06] MEDS: guaiFENesin E.R. 600 MG TAB PO SCH ×2 (08:01→20:35)
--- NOTE | 2018-01-06 08:30 | HHI.CCPN ---
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 On 12/25 patient received chemotherapy -CHOP regimen. Hospitalization further significant for PEG placement due to malnutrition and lack of appetite and thoracentesis for pleural effusion. Patient was being followed by pulmonary, cardiology and hematology services. Over the night patient had increased O2 requirements with high tube feed residual and concern for aspiration. A rapid response was called earlier this afternoon for worsening hypoxia despite NRM. Patient was emergently intubated and upon intubation he was found to have significant amount of tube feeds in the airway. An NG tube was placed on suction with 750 cc suctioned from the stomach. Patient was started on midazolam and fentanyl drips and phenylephrine for BP support. Patient was seen immediately on ICU arrival, 100% O2 with SPO2 100%. Patient requires 20 mics per minute of phenylephrine infusion. He is intubated and sedated, unresponsive. 01/02: No events over the night. Patient remains critically ill. He is currently sedated and intubated. He remains on phenylephrine at 80 mics per minute. FiO2 down to 0.6. T-max 98.6, I/O 1550/400. 01/03: Patient did well over the night. Norepinephrine weaned off. FiO2 currently at 0.5. Patient remains on a PEEP of 10. Sedation accomplished with propofol and fentanyl. Tmax 98.4. 01/04: Multiple episodes of diarrhea overnight. No C. difficile sent. Urine output decreased, 300 mL's over last 12 hours. Patient does not require any pressors, sedation is maintained with propofol at 30 and fentanyl at 150. During sedation vacation patient moves all extremities, agitated, but does not follow commands. Currently he is sedated and intubated. Morning chest x-ray reviewed, slight improvement in bibasilar infiltrates. 01/05: No events over the night. T-max of 98.6. Urine output 550 mL's over the last 24 hours. Ventilator on 0.4 FiO2. Sedation was stopped this morning, patient agitated moving all extremities but not following commands. Morning chest x-ray reviewed, no significant change compared to yesterday's, ET tube approximately 7 cm above clem. 01/06: Patient remains afebrile, on no pressors. Oxygenation down to 0.4 FiO2, but PEEP remains at 10. Trickle feeds started yesterday, still having residuals. Patient remains on low-dose propofol and fentanyl for sedation. Morning chest x-ray reviewed, still with bibasilar opacities, unchanged. Review of systems is unobtainable since patient is intubated Objective Vital Signs Date Time Temp Pulse Resp B/P (MAP) Pulse Ox O2 Delivery O2 Flow Rate FiO2 01/06/18 07:00 97 Mechanical Ventilator 40 01/06/18 06:00 61 01/06/18 04:00 97.4 18 118/62 (80) 01/02/18 19:00 2.00 Intake and Output 01/06/18 01/06/18 01/07/18 08:00 16:00 00:00 Intake Total 2676 ml Output Total 250 ml Balance 2426 ml Result Diagram: 01/06/18 0340 01/06/18 0340 Other Results Laboratory Tests Test 01/06/18 06:34 Blood Gas Puncture Site RT RADIAL Blood Gas Patient Temperature 98.6 Blood Gas HCO3 24 mmol/L (22-26) Blood Gas Base Excess 0.9 mmol/L (-2-2) Blood Gas Oxygen Saturation 95 % (90-100) Arterial Blood pH 7.47 (7.380-7.420) Arterial Blood Partial Pressure CO2 34 mmHg (38-42) Arterial Blood Partial Pressure O2 85 mmHg (61-120) Arterial Blood Oxygen Content 10.2 Vol % (12.0-20.0) Arterial Blood Carboxyhemoglobin 1.1 % (0-4) Arterial Blood Methemoglobin 1.0 % (0-2) Blood Gas Hemoglobin 7.5 G/DL (12.0-16.0) Oxygen Delivery Device VENTILATOR Blood Gas Ventilator Setting SEE COMMENT Blood Gas Inspired Oxygen 40 % Imaging Last 24 hours Impressions Chest X-Ray 01/04/18 0600 Signed Impressions: Service Date/Time: Thursday, January 04, 2018 03:22 - CONCLUSION: 1. Interval improvement in bibasilar opacity. 2. The patient remains intubated. Bijan Loredo MD Last Impressions Chest X-Ray 01/03/18 0600 Signed Impressions: Service Date/Time: December 02:08 - CONCLUSION: Increasing left lower lobe consolidation and increasing right pleural effusion. Siva Cooley MD Abdomen/Pelvis CT 01/02/18 0000 Signed Impressions: Service Date/Time: Tuesday, January 02, 2018 21:38 - CONCLUSION: 1. Free intraperitoneal air of unknown etiology. On the supine view most of the free air is around the gastrostomy tube and tip of the nasogastric tube as discussed above. 2. Mild to moderate ascites. Moderate anasarca. 3. Moderate bilateral effusions with basilar atelectasis. 4. Nonobstructing right renal calculus. Hay catheter in bladder. Elbert Carrasquillo MD Chest CT 12/30/17 0000 Signed Impressions: Service Date/Time: Saturday, December 30, 2017 21:13 - CONCLUSION: 1. Free intraperitoneal air in the upper abdomen of uncertain etiology. There is a gastrostomy present. 2. Moderate bilateral pleural effusions with compressive atelectasis. Patchy air space consolidation in the right upper lobe. 3. Moderate anasarca and ascites. 4. Findings called to the floor at the time of dictation. Elbert Carrasquillo MD Chest Ultrasound 12/27/17 0000 Signed Impressions: Service Date/Time: December 21:39 - CONCLUSION: Large left pleural effusion and would be amenable to thoracentesis. Frandy was made on the overlying skin. Andres Parekh MD Bone Biopsy CT 12/25/17 1142 Signed Impressions: Service Date/Time: Monday, December 25, 2017 12:32 - CONCLUSION: 1. Uncomplicated CT guided bone marrow aspirate. 2. Uncomplicated CT guided bone marrow biopsy. Lee Mijares MD CT Angiography 12/25/17 0000 Signed Impressions: Service Date/Time: Monday, December 25, 2017 09:26 - CONCLUSION: 1. No CT evidence for pulmonary artery embolism. 2. Moderate to large bilateral pleural effusions with associated compressive atelectasis at the lung bases. 3. 8mm nodule in the right middle lobe. Followup CT examination may be performed at 6 months to document stability if this has not been evaluated previously. 4. Very mildly prominent mediastinal and hilar nodes and partially imaged upper abdominal lymphadenopathy in this patient with history of lymphoma. Miguel Ashton MD Objective Remarks General - elderly gentleman intubated and sedated, ill-appearing, poorly responsive HEENT - pupils are equal, reactive, sclerae are anicteric, neck is supple, no rigidity, neck veins distended, + NGT, + LIJ CVC (01/01) -site remains clean, + ETT CV - irregular heart sounds, no murmurs, rubs or gallops Chest -still with scattered coarse breath sounds bilateral, no wheezes, good air entry, [id number]-[id number] right chest -site remains clean Abdomen - soft, obese, appears non-tender, BS present, no hepatomegaly, no splenomegaly, + PEG Extremities - 3+ edema, + peripheral pulses, warm, no cyanosis Neuro - intubated, pupils equal and reactive, grimaces to pain but does not follow commands A/P Assessment and Plan 1. Acute hypoxic and hypercapnic respiratory failure - slow improvement in O2 requirements, currently down to 0.4 FiO2 2. Likely aspiration pneumonia 3. Circulatory shock, likely septic vs med induced, requiring low-dose pressor -weaned off vasopressors 4. Neutropenia with ANC count less than 500 -continues to be severely neutropenic, slowly trending up 5. NHL, received CHOP therapy on 12/25 6. Sacral decubitus 7. CYNDI -likely ATN due to hypotension 8. Hypokalemia -replete 9. Hypernatremia - likely iatrogenic, improving 10. Free air in the abdomen. On exam abdomen is soft and nontender 11. Atrial fibrillation -rate controlled 12. Pancytopenia -slowly improving 1. Continue PRVC at current vent settings. PIP 28, patient synchronized with the vent, no auto PEEP. Decrease PEEP to 8 2. Vent bundle and bronchodilators 3. Continue meropenem, vancomycin and micafungin per ID 4. Sedation vacation today 5. Not ready for weaning yet but if he tolerates lower PEEP hopefully can come off the vent early next week 6. Gentle IV hydration 7. Appreciate nephrology consult 8. CT head done yesterday, no acute findings 9. Neupogen and PRBC transfusion per onc 10. GI and DVT prophylaxis 11. Continue trickle feeds 12. Replete potassium Patient is critically ill with hypoxic respiratory failure, aspiration pneumonia , septic in a severely immunocompromised host and he is at extremely high risk for further deterioration and . I discussed extensively yesterday with and I updated her regarding patient' s critical condition. No family present today at bedside. Didier Montoya MD Jan 06, 2018 08:30
[2018-01-06] MEDS ORDERED: POTASSIUM CHLORIDE INJ 30 MEQ in SODIUM CHLORIDE 0.9% INJ 100 ML IV-CENTRAL ONE (09:00)
--- NOTE | 2018-01-06 10:32 | HHI.PR ---
Subjective Remarks The patient is still critically ill. History on a mechanical ventilator. And shock Objective Vital Signs Date Time Temp Pulse Resp B/P (MAP) Pulse Ox O2 Delivery O2 Flow Rate FiO2 01/06/18 10:00 64 01/06/18 08:35 98 40 01/06/18 08:00 40 01/06/18 08:00 97.7 61 18 100/59 (73) 98 01/06/18 08:00 62 01/06/18 07:00 97 Mechanical Ventilator 40 01/06/18 06:00 61 01/06/18 04:00 97.4 61 18 118/62 (80) 100 01/06/18 04:00 61 01/06/18 04:00 40 01/06/18 03:35 98 40 01/06/18 02:00 62 01/06/18 00:15 98 40 01/06/18 00:00 58 01/06/18 00:00 40 01/06/18 00:00 97.0 58 18 100/56 (71) 100 01/05/18 22:00 63 01/05/18 20:20 96 40 01/05/18 20:00 40 01/05/18 20:00 97 Mechanical Ventilator 40 01/05/18 20:00 97.1 63 18 107/59 (75) 99 01/05/18 19:50 64 01/05/18 18:00 76 01/05/18 16:00 40 01/05/18 16:00 68 01/05/18 16:00 97.5 63 18 117/66 (83) 99 01/05/18 15:10 99 40 01/05/18 14:00 65 01/05/18 12:00 64 01/05/18 12:00 40 01/05/18 12:00 97.4 82 18 101/62 (75) 100 01/05/18 11:56 98 100 I/O 01/05/18 01/05/18 01/05/18 01/06/18 01/06/18 01/06/18 07:00 15:00 23:00 07:00 15:00 23:00 Intake Total 1450 ml 2476 ml 200 ml Output Total 750 ml 425.0 ml 250 ml Balance 700 ml -425.0 ml 2226 ml 200 ml IV Total 1450 ml 2153 ml 200 ml Tube Feeding 203 ml Other 120 ml Output Urine Total 200 ml 175 ml 250 ml Stool Total 300 ml Gastric Drainage Total 250 ml 50 ml Tube Feeding Residual Discard 200.0 ml 0 ml # Bowel Movements 0 0 1 Result Diagram: 01/06/18 0340 01/06/18 0340 Procedures PEG tube placement. Bone Marrow Biopsy 12/25/17 Objective Remarks General - sedated, ill-appearing, intubated HEENT -atraumatic CV - irregular S1 and S2, no murmurs, rubs or gallops Chest - scattered coarse breath sounds bilateral, good air entry, no wheezes, Kwzjfk-y-Yzzy right chest -site remains clean Abdomen - soft, obese, non-tender, BS present, no hepatomegaly, no splenomegaly , + PEG Extremities - 3+ edema, + peripheral pulses, warm, no cyanosis Neuro - intubated, pupils equal and reactive, moves all 4 extremities, but does not follow commands, withdraws to pain Assessment and Plan Assessment and Plan 1. Acute hypoxic and hypercapnic respiratory failure 2. Likely aspiration pneumonia 3. Shock 4. Severe neutropenia 5. NHL, received CHOP therapy on 12/25 . Pancytopenia -worsening thrombocytopenia, hemoglobin better post PRBC transfusion 1. Continue current vent settings 2. optimize volume status and achieve negative balance if possible 3. Continue broad-spectrum antibiotics Medical management is mainly by the graphic pre press trades worker at this point. Cm Mckee MD Jan 06, 2018 10:32
[2018-01-06] MEDS: DEXTROSE 5% IN WATE 1000ML INJ 1,000 ML IV SCH (11:10)
[2018-01-06] MEDS: MICAFUNGIN INJ 100 MG in SODIUM CHLORIDE 0.9% INJ 100 ML IV SCH (11:28)
[2018-01-06] MEDS: FILGRASTIM INJ 480 MCG in DEXTROSE 5% IN WATER INJ 25 ML IV SCH ×2 (12:56)
--- NOTE | 2018-01-06 13:24 | HHI.GIFU ---
Subjective Remarks Pt remains on sedation and mechanically ventilated On TF running at 10mL/hr Do not see nurse to ask about residuals Small amount of loose, brown stool in rectal collection bag Objective Vitals I&O Vital Signs Date Time Temp Pulse Resp B/P (MAP) Pulse Ox O2 Delivery O2 Flow Rate FiO2 01/06/18 12:00 40 01/06/18 12:00 68 01/06/18 12:00 97.1 66 18 116/58 (77) 97 01/06/18 10:00 64 01/06/18 08:35 98 40 01/06/18 08:00 40 01/06/18 08:00 97.7 61 18 100/59 (73) 98 01/06/18 08:00 62 01/06/18 07:00 97 Mechanical Ventilator 40 01/06/18 06:00 61 01/06/18 04:00 97.4 61 18 118/62 (80) 100 01/06/18 04:00 61 01/06/18 04:00 40 01/06/18 03:35 98 40 01/06/18 02:00 62 01/06/18 00:15 98 40 01/06/18 00:00 58 01/06/18 00:00 40 01/06/18 00:00 97.0 58 18 100/56 (71) 100 01/05/18 22:00 63 01/05/18 20:20 96 40 01/05/18 20:00 40 01/05/18 20:00 97 Mechanical Ventilator 40 01/05/18 20:00 97.1 63 18 107/59 (75) 99 01/05/18 19:50 64 01/05/18 18:00 76 01/05/18 16:00 40 01/05/18 16:00 68 01/05/18 16:00 97.5 63 18 117/66 (83) 99 01/05/18 15:10 99 40 01/05/18 14:00 65 I/O 01/05/18 01/05/18 01/05/18 01/06/18 01/06/18 01/06/18 07:00 15:00 23:00 07:00 15:00 23:00 Intake Total 1450 ml 2476 ml 400 ml Output Total 750 ml 425.0 ml 250 ml Balance 700 ml -425.0 ml 2226 ml 400 ml IV Total 1450 ml 2153 ml 400 ml Tube Feeding 203 ml Other 120 ml Output Urine Total 200 ml 175 ml 250 ml Stool Total 300 ml Gastric Drainage Total 250 ml 50 ml Tube Feeding Residual Discard 200.0 ml 0 ml # Bowel Movements 0 0 1 Laboratory Laboratory Tests Test 01/06/18 03:40 01/06/18 06:34 White Blood Count 1.4 Red Blood Count 2.71 Hemoglobin 7.6 Hematocrit 22.6 Mean Corpuscular Volume 83.3 Mean Corpuscular Hemoglobin 27.9 Mean Corpuscular Hemoglobin Concent 33.4 Red Cell Distribution Width 18.5 Platelet Count 56 Mean Platelet Volume 11.0 CBC Comment AUTO DIFF Differential Total Cells Counted 100 Neutrophils % (Manual) 77 Band Neutrophils % 15 Lymphocytes % 8 Neutrophils # (Manual) 1.3 Differential Comment FINAL DIFF MANUAL Dohle Bodies PRESENT Platelet Estimate LOW Platelet Morphology Comment ENLARGED Acanthocytes OCC Blood Urea Nitrogen 51 Creatinine 2.30 Random Glucose 109 Total Protein 3.9 Albumin 1.4 Calcium Level 7.6 Phosphorus Level 2.4 Magnesium Level 2.2 Alkaline Phosphatase 48 Aspartate Amino Transf (AST/SGOT) 16 Alanine Aminotransferase (ALT/SGPT) 19 Total Bilirubin 0.3 Sodium Level 150 Potassium Level 3.3 Chloride Level 116 Carbon Dioxide Level 26.5 Anion Gap 8 Estimat Glomerular Filtration Rate 28 Blood Gas Puncture Site RT RADIAL Blood Gas Patient Temperature 98.6 Blood Gas HCO3 24 Blood Gas Base Excess 0.9 Blood Gas Oxygen Saturation 95 Arterial Blood pH 7.47 Arterial Blood Partial Pressure CO2 34 Arterial Blood Partial Pressure O2 85 Arterial Blood Oxygen Content 10.2 Arterial Blood Carboxyhemoglobin 1.1 Arterial Blood Methemoglobin 1.0 Blood Gas Hemoglobin 7.5 Oxygen Delivery Device VENTILATOR Blood Gas Ventilator Setting SEE COMMENT Blood Gas Inspired Oxygen 40 Date/Time Source Procedure Growth Status 01/01/18 17:57 Blood Peripheral Aerobic Blood Culture - Final NO GROWTH IN 5 DAYS Complete 01/01/18 17:57 Blood Peripheral Anaerobic Blood Culture - Final NO GROWTH IN 5 DAYS Complete 12/28/17 12:15 Fluid Pleural Fluid Fungal Smear - Final NO FUNGAL ELEMENTS SEEN. Resulted 12/28/17 12:15 Fluid Pleural Fluid Fungal Culture - Preliminary NO GROWTH IN 1 WEEK Resulted 01/01/18 17:15 Sputum Endotracheal Gram Stain - Final Complete 01/01/18 17:15 Sputum Endotracheal Sputum Culture - Final HEAVY GROWTH NORMAL RESPIRATORY LISA Complete 01/01/18 17:15 Urine Catheterized Urine Urine Culture - Final NO GROWTH IN 48 HOURS. Complete Imaging Last Impressions Renal Ultrasound 01/05/18 0000 Signed Impressions: Service Date/Time: Friday, January 05, 2018 08:00 - CONCLUSION: Echogenic kidneys suggesting medical renal disease. Some ascites. Bilateral pleural effusions. Lee Mijares MD Chest X-Ray 01/05/18 0000 Signed Impressions: Service Date/Time: Friday, January 05, 2018 06:43 - CONCLUSION: Small bilateral pleural effusions. Persistent bibasilar hazy opacities. Multiple tubes and lines are stable. Lee Mijares MD Small Bowel X-Ray 01/03/18 0000 Signed Impressions: Service Date/Time: December 14:27 - CONCLUSION: 1. No leakage identified on injection through gastrostomy tube. No small bowel obstruction or significant dilatation. Elbert Carrasquillo MD Abdomen/Pelvis CT 01/02/18 0000 Signed Impressions: Service Date/Time: Tuesday, January 02, 2018 21:38 - CONCLUSION: 1. Free intraperitoneal air of unknown etiology. On the supine view most of the free air is around the gastrostomy tube and tip of the nasogastric tube as discussed above. 2. Mild to moderate ascites. Moderate anasarca. 3. Moderate bilateral effusions with basilar atelectasis. 4. Nonobstructing right renal calculus. Hay catheter in bladder. Elbert Carrasquillo MD Chest CT 12/30/17 0000 Signed Impressions: Service Date/Time: Saturday, December 30, 2017 21:13 - CONCLUSION: 1. Free intraperitoneal air in the upper abdomen of uncertain etiology. There is a gastrostomy present. 2. Moderate bilateral pleural effusions with compressive atelectasis. Patchy air space consolidation in the right upper lobe. 3. Moderate anasarca and ascites. 4. Findings called to the floor at the time of dictation. Elbert Carrasquillo MD Chest Ultrasound 12/27/17 0000 Signed Impressions: Service Date/Time: December 21:39 - CONCLUSION: Large left pleural effusion and would be amenable to thoracentesis. Frandy was made on the overlying skin. Andres Parekh MD Bone Biopsy CT 12/25/17 1142 Signed Impressions: Service Date/Time: Monday, December 25, 2017 12:32 - CONCLUSION: 1. Uncomplicated CT guided bone marrow aspirate. 2. Uncomplicated CT guided bone marrow biopsy. Lee Mijares MD CT Angiography 12/25/17 0000 Signed Impressions: Service Date/Time: Monday, December 25, 2017 09:26 - CONCLUSION: 1. No CT evidence for pulmonary artery embolism. 2. Moderate to large bilateral pleural effusions with associated compressive atelectasis at the lung bases. 3. 8mm nodule in the right middle lobe. Followup CT examination may be performed at 6 months to document stability if this has not been evaluated previously. 4. Very mildly prominent mediastinal and hilar nodes and partially imaged upper abdominal lymphadenopathy in this patient with history of lymphoma. Miguel Ashton MD Physical Exam HEENT: Normocephalic; atraumatic; no jaundice. CHEST: Respirations synchronized with vent, mechanically ventilated via ETT CARDIAC: RRR ABDOMEN: Soft, nondistended, PEG site clean and dry to LIWS; bowel sounds active. Rectal bag. SKIN: Normal; no rash; no jaundice. ATHLETIC TRAINER: Sedated, unresponsive Assessment and Plan Plan Initial consult Weight loss with new dx of naplastic large cell lymphoma- Tx from [facility] for oncology treatment Pancytopenia- Pt on Neupogen, Neutropenic precautions, antifungal and abx per ID (01/03) Reconsult for PEG tube eval EGD with PEG placement (12/24) --> Ulcer in the first portion of the duodenum. Otherwise normal Pt was on Tube feeding Jevity @ 60 mL/hr- stopped because pt was not tolerating. He became hypoxic, O2 not sustained despite NRB so was intubated, during intubation a significant amount of TF was noted to be aspirated. TF placed on hold. Unclear why pt has an OG tube, most likely placed during intubation. Abnormal CT findings --> Free intraperitoneal air of unknown etiology. On the supine view most of the free air is around the G-tbue and tip of OG tube. Mild to moderate ascites. Moderate anasarca. Currently PEG tube to LIWS with bile colored drainage, per sister in law at bedside, yesterday drainage was stool colored. (01/04) --> Per RN pt had 2 large, loose BMs this morning. PEG tube to LIWS, suction was turned off last night so unsure if output is decreasing. KUB With SBFT- Gastrografin through PEG notes no leakage identified on injection through G tube. No small bowel obstruction or significant dilation. If output decreasing through PEG ok to restart TF. Discussed with RN states she will monitor. (01/05) Per RN pt still had significant amount of output through OG and PEG tube yesterday so TF was not started. Output has decreased significantly today. No output in canister and it was changed early this AM. Will try to start trickle feeding today. (01/06) Pt currently on Jevity 1.5 running at 10mL/hr. Will reconsult nutrition to evaluate, current recommendations are based on bolus feedings. Unsure he will tolerate this, that was based on pt being discharged to rehab prior to ending up in ICU. Will titrate Jevity up as tolerated. If not tolerating, then pt may benefit from GJ tube. Plan: - Titrate Jevity 1.5 up to 40mL/hr for now until further nutrition recommendations - Monitor residuals - Monitor stool output - Further recommendations based on clinical course Pt has been seen and examined by myself and Dr. Cao and this note is written on her behalf Ny Villeda Jan 06, 2018 13:24
--- NOTE | 2018-01-06 13:25 | HHI.NPPN ---
Subjective History of Present Illness 72-year-old male with history of large cell lymphoma, acute renal failure, respiratory failure on ventilator Objective Data Data 01/06/18 01/07/18 19:00 07:00 Intake Total 400 ml Balance 400 ml IV Total 400 ml Vital Signs Date Time Temp Pulse Resp B/P (MAP) Pulse Ox O2 Delivery O2 Flow Rate FiO2 01/06/18 12:00 40 01/06/18 12:00 68 01/06/18 12:00 97.1 66 18 116/58 (77) 97 01/06/18 10:00 64 01/06/18 08:35 98 40 01/06/18 08:00 40 01/06/18 08:00 97.7 61 18 100/59 (73) 98 01/06/18 08:00 62 01/06/18 07:00 97 Mechanical Ventilator 40 01/06/18 06:00 61 01/06/18 04:00 97.4 61 18 118/62 (80) 100 01/06/18 04:00 61 01/06/18 04:00 40 01/06/18 03:35 98 40 01/06/18 02:00 62 01/06/18 00:15 98 40 01/06/18 00:00 58 01/06/18 00:00 40 01/06/18 00:00 97.0 58 18 100/56 (71) 100 01/05/18 22:00 63 01/05/18 20:20 96 40 01/05/18 20:00 40 01/05/18 20:00 97 Mechanical Ventilator 40 01/05/18 20:00 97.1 63 18 107/59 (75) 99 01/05/18 19:50 64 01/05/18 18:00 76 01/05/18 16:00 40 01/05/18 16:00 68 01/05/18 16:00 97.5 63 18 117/66 (83) 99 01/05/18 15:10 99 40 01/05/18 14:00 65 -: 01/06/18 0340 01/06/18 0340 Physical Exam General Appearance: Well Developed Neck Neck Exam: Neck Supple Pulmonary Resp Exam: Rhonchi Cardiology CV Exam: Regular, Normal Sinus Rhythm Gastrointestinal/Abdomen GI Exam: Soft, Non-Tender, Bowel Sounds Present Extremeties Extremities Exam: Moderate Edema Assessment/Plan Problem List: (1) Acute renal failure ICD Codes: N17.9 - Acute kidney failure, unspecified Status: Acute Plan: he has hypotension contributing to ARF FeNa low <1 Give Albumin 5% 250 ml q 12 along with fluids Urine output is marginally better, to 250 cc last night Give 1 dose of Lasix 40 mg IV x1 k replaced Continue to observe for recovery Avoid nephrotoxic agent Monitor BMP 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
[2018-01-06] MEDS ORDERED: FUROSEMIDE 40 MG/4 ML VIAL IV PUSH ONE (13:30)
--- NOTE | 2018-01-06 13:33 | PD.ONC.PN ---
Subjective Subjective Remarks Afebrile Per RN, he is still not following commands with sedation vacation CT scan of the head showed no acute abnormality Down to 8 of PEEP Objective Data Date Time Temp Pulse Resp B/P (MAP) Pulse Ox O2 Delivery O2 Flow Rate FiO2 01/06/18 12:00 40 01/06/18 12:00 68 01/06/18 12:00 97.1 66 18 116/58 (77) 97 01/06/18 10:00 64 01/06/18 08:35 98 40 01/06/18 08:00 40 01/06/18 08:00 97.7 61 18 100/59 (73) 98 01/06/18 08:00 62 01/06/18 07:00 97 Mechanical Ventilator 40 01/06/18 06:00 61 01/06/18 04:00 97.4 61 18 118/62 (80) 100 01/06/18 04:00 61 01/06/18 04:00 40 01/06/18 03:35 98 40 01/06/18 02:00 62 01/06/18 00:15 98 40 01/06/18 00:00 58 01/06/18 00:00 40 01/06/18 00:00 97.0 58 18 100/56 (71) 100 01/05/18 22:00 63 01/05/18 20:20 96 40 01/05/18 20:00 40 01/05/18 20:00 97 Mechanical Ventilator 40 01/05/18 20:00 97.1 63 18 107/59 (75) 99 01/05/18 19:50 64 01/05/18 18:00 76 01/05/18 16:00 40 01/05/18 16:00 68 01/05/18 16:00 97.5 63 18 117/66 (83) 99 01/05/18 15:10 99 40 01/05/18 14:00 65 01/06/18 01/06/18 01/06/18 07:00 15:00 23:00 Intake Total 2476 ml 400 ml Output Total 250 ml Balance 2226 ml 400 ml Result Diagram: 01/06/18 0340 01/06/18 0340 Laboratory Results Laboratory Tests Test 01/06/18 03:40 01/06/18 06:34 White Blood Count 1.4 TH/MM3 Red Blood Count 2.71 MIL/MM3 Hemoglobin 7.6 GM/DL Hematocrit 22.6 % Mean Corpuscular Volume 83.3 FL Mean Corpuscular Hemoglobin 27.9 PG Mean Corpuscular Hemoglobin Concent 33.4 % Red Cell Distribution Width 18.5 % Platelet Count 56 TH/MM3 Mean Platelet Volume 11.0 FL CBC Comment AUTO DIFF Differential Total Cells Counted 100 Neutrophils % (Manual) 77 % Band Neutrophils % 15 % Lymphocytes % 8 % Neutrophils # (Manual) 1.3 TH/MM3 Differential Comment FINAL DIFF MANUAL Dohle Bodies PRESENT Platelet Estimate LOW Platelet Morphology Comment ENLARGED Acanthocytes OCC Blood Urea Nitrogen 51 MG/DL Creatinine 2.30 MG/DL Random Glucose 109 MG/DL Total Protein 3.9 GM/DL Albumin 1.4 GM/DL Calcium Level 7.6 MG/DL Phosphorus Level 2.4 MG/DL Magnesium Level 2.2 MG/DL Alkaline Phosphatase 48 U/L Aspartate Amino Transf (AST/SGOT) 16 U/L Alanine Aminotransferase (ALT/SGPT) 19 U/L Total Bilirubin 0.3 MG/DL Sodium Level 150 MEQ/L Potassium Level 3.3 MEQ/L Chloride Level 116 MEQ/L Carbon Dioxide Level 26.5 MEQ/L Anion Gap 8 MEQ/L Estimat Glomerular Filtration Rate 28 ML/MIN Blood Gas Puncture Site RT RADIAL Blood Gas Patient Temperature 98.6 Blood Gas HCO3 24 mmol/L Blood Gas Base Excess 0.9 mmol/L Blood Gas Oxygen Saturation 95 % Arterial Blood pH 7.47 Arterial Blood Partial Pressure CO2 34 mmHg Arterial Blood Partial Pressure O2 85 mmHg Arterial Blood Oxygen Content 10.2 Vol % Arterial Blood Carboxyhemoglobin 1.1 % Arterial Blood Methemoglobin 1.0 % Blood Gas Hemoglobin 7.5 G/DL Oxygen Delivery Device VENTILATOR Blood Gas Ventilator Setting SEE COMMENT Blood Gas Inspired Oxygen 40 % Administered Medications Medications (Trade) Dose Ordered Sig/Candace Route PRN Reason Start Time Stop Time Status Last Admin Dose Admin Sodium Chloride (NS Flush) 2 ml BID IV FLUSH 12/22/17 21:00 01/06/18 08:01 Ondansetron HCl (Zofran Inj) 4 mg Q6H PRN IVP NAUSEA OR VOMITING 12/22/17 18:15 01/01/18 10:02 Senna/Docusate Sodium (Mary Kay-Colace) 1 tab BID PO 12/22/17 21:00 01/05/18 20:12 Albuterol/ Ipratropium (Duoneb Neb) 1 ampule Q4HR NEB PRN NEB SOB/WHEEZING 12/22/17 20:15 01/01/18 10:08 Zolpidem Tartrate (Ambien) 5 mg HS PRN PO INSOMNIA 12/22/17 20:15 12/26/17 20:30 Pantoprazole Sodium (Protonix) 40 mg Q12HR PO 12/22/17 21:00 01/06/18 08:01 Megestrol Acetate (Megace Liq) 800 mg DAILY PO 12/23/17 09:00 01/06/18 08:01 Budesonide/ Formoterol Fumarate (Symbicort 160-4.5 Mcg Inh) 1 puff Q12HR INH 12/22/17 21:00 01/01/18 08:53 Aspirin (Ecotrin Ec) 81 mg DAILY PO 12/23/17 09:00 01/06/18 08:01 Atorvastatin Calcium (Lipitor) 80 mg DAILY PO 12/23/17 09:00 01/06/18 08:01 Multivitamins (Theragran) 1 tab DAILY PO 12/23/17 09:00 01/06/18 08:01 Heparin Sodium (Porcine) (Heparin Central Flush) 250 units UNSCH PRN IV FLUSH SEE PROTOCOL 12/22/17 20:30 12/27/17 20:27 Insulin Aspart (NovoLOG SUPPLEMENTAL SCALE) 1 ACHS SLIDING SCALE SQ 12/22/17 21:00 01/01/18 21:00 Guaifenesin/ Dextromethorphan (Robitussin Dm 200-20 Mg/10 ml Liq) 10 ml Q4H PRN PO cough interfering with rest 12/22/17 21:00 12/26/17 18:27 Guaifenesin (Mucinex Er) 600 mg BID PO 12/23/17 21:00 01/06/18 08:01 Allopurinol (Zyloprim) 300 mg DAILY PO 12/26/17 09:00 01/06/18 08:01 Acetaminophen (Tylenol) 650 mg Q4H PRN PO FEVER>100.2hldrdc1-3 12/26/17 14:45 12/26/17 20:32 Vancomycin HCl 1500 mg/Sodium Chloride 515 ml @ 250 mls/hr Q12H IV 12/27/17 15:00 Future Hold 01/03/18 03:40 Morphine Sulfate (Morphine Inj) 2 mg Q2HR PRN IV PUSH pain3-5 12/27/17 15:30 12/31/17 21:18 Morphine Sulfate (Morphine Inj) 4 mg Q2HR PRN IV PUSH PAIN SCALE 6 TO 8 12/27/17 15:45 12/29/17 03:43 Acetaminophen (Tylenol) 650 mg Q4H PRN PO SEE LABEL COMMENTS 12/31/17 16:30 12/31/17 21:19 Calcium Carbonate (Tums Chew) 500 mg Q12HR PRN CHEW indigestion 12/31/17 16:15 01/01/18 05:27 Prednisone (Deltasone) 10 mg BID PO 01/01/18 21:00 01/06/18 08:01 Fentanyl Citrate 250 ml @ 0 mls/hr TITRATE PRN IV SEDATION 01/01/18 15:15 01/05/18 23:02 Chlorhexidine Gluconate (Peridex 0.12% Liq) 15 ml BID@08,20 MT 01/01/18 20:00 01/06/18 07:31 Norepinephrine Bitartrate 250 ml @ 7.5 mls/hr TITRATE PRN IV Blood pressure management 01/01/18 17:00 01/02/18 21:09 Filgrastim 480 mcg/Dextrose 26.6 ml @ 53.2 mls/hr DAILY@14 IV 01/02/18 14:00 01/06/18 12:56 Propofol 100 ml @ 2.757 mls/ hr TITRATE PRN IV SEDATION 01/02/18 11:15 01/06/18 08:28 Micafungin Sodium 100 mg/Sodium Chloride 100 ml @ 100 mls/hr Q24H IV 01/02/18 13:00 01/06/18 11:28 Albuterol/ Ipratropium (Duoneb Neb) 1 ampule Q6HR NEB NEB 01/03/18 10:00 01/06/18 08:35 Dextrose 1,000 ml @ 75 mls/hr [id number] IV 01/04/18 07:00 01/06/18 11:10 Meropenem 1000 mg/ Sodium Chloride 100 ml @ 200 mls/hr Q12H IV 01/05/18 16:00 01/06/18 04:36 Albumin Human 500 ml @ 250 mls/hr Q12H IV 01/05/18 14:00 01/06/18 12:56 Objective Remarks GENERAL: Elderly male resting in bed intubated and sedated SKIN: Warm and dry. HEAD: Normocephalic. EYES: No injection or drainage. NECK: Supple, trachea midline. CARDIOVASCULAR: Regular rate and rhythm without murmurs. RESPIRATORY: Clear anteriorly. GASTROINTESTINAL: Abdomen soft, non-tender, nondistended. EXTREMITIES: No cyanosis, or edema. 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 Continue Neupogen today. Monitor CBC. 01/05: Noted white blood cells minimally improved. Continue Neupogen for now. Await results from CT brain. Supportive care. 01/04: remains on vent. Off pf pressors. Pancytopenia with Neutropenia. Continue neupogen. Vent management per Manager Behavioral. Extensive d/w and DIL ( DIRECTOR SEARCH) . answered their questions. Continue maximal support. 01/03: Continue Neupogen. Transfuse 1 unit packed red blood cells today for hemoglobin of 7.5. Monitor CBC. 01/02: patient remains intubated, sedated. start Neupogen for neutropenia + infection 01/01: patient in respiratory failure. intubated and transferring to intensive care. 12/31: C. difficile negative. Bone marrow biopsy shows no lymphoma involvement. Cytology from thoracentesis pending. Transfuse 1 unit PRBC for symptomatic with hgb 7.7. Patient would benefit from inpatient rehab for strengthening 12/28: continue solu-medrol. await thoracentesis. consult OT. 12/27: start Solu-medrol 40mg IV q 6. consult pulmonology for worsening infiltrates, pleural effusions. monitor CBC, counts dropping. 12/26: CT chest shows Bilateral Pl effusion. Continue aggressive diuresis. Had CHOP C1D1 yesterday. Tolerated well. Next chemo in 3 weeks as outpt. Continue allopurinol and prednisone. 12/25: CTA shows no PE. +LAD, PE. dyspnea likely d/t lymphoma. will give Solu- medrol 1g IV and start CHOP today. Anaplastic large cell, non-Hodgkin's lymphoma, at least stage III. --unclear whether he has any B symptoms, but this could be most likely given that he has significant weight loss, which is one of the symptoms of lymphoma. --Leukocytosis, anemia and neutrophilia, most likely due to bone marrow involvement by the lymphoma until proven otherwise. (2) Malnutrition ICD Codes: E46 - Unspecified protein-calorie malnutrition Plan: --tube feeds stopped at 715AM on 01/01/18 d/t inability to tolerate tube feeds. (3) Decubitus skin ulcer ICD Codes: L89.90 - Pressure ulcer of unspecified site, unspecified stage Plan: --wound care following. (4) Respiratory failure ICD Codes: J96.90 - Respiratory failure, unspecified, unspecified whether with hypoxia or hypercapnia Plan: --d/t aspiration from tube feeds --CTA showed no PE. --d/t pleural effusions, going for thoracentesis, 12/28 --s/p CHOP chemotherapy and Solu-Medrol 1G IV --pulmonology following, appreciate recommendations (5) Pancytopenia due to antineoplastic chemotherapy ICD Codes: D61.810 - Antineoplastic chemotherapy induced pancytopenia; T45.1X5A - Adverse effect of antineoplastic and immunosuppressive drugs, initial encounter Plan: --Neupogen started on 01/02. --monitor and transfuse as needed (6) Renal insufficiency ICD Codes: N28.9 - Disorder of kidney and ureter, unspecified Plan: --Nephrology consulted Assessment 72y/o male with newly diagnosed anaplastic large cell NHL. h/o COPD, hypercholesterolemia, hypertension, history of previous stroke. HPI: started 8 weeks ago with a cough mixed with greenish phlegm and shortness of breath. CT cap showed diffuse lymphadenopathy on both sides of the diaphragm. PET scan showed increased uptake in the lymph nodes involving the neck, chest, mediastinal and hilar area, retroperitoneum and pelvic lymph nodes. biopsy of the left neck mass=anaplastic large cell NHL echocardiogram, LVEF=55-70%. MUGA scan, showed EF of 60%. Attending Statement The exam, history, and the medical decision-making described in the above note were completed with the assistance of the mid-level provider. I reviewed and agree with the findings presented. I attest that I had a [id number] encounter with the patient on the same day, and personally performed and documented my assessment and findings in the medical record. 72 yoM with anaplastic large cell lymphoma s/p CHOP chemotherapy. Counts improving. Continue GCSF. Problem Qualifiers (1) Malnutrition: Qualified Codes: E46 - Unspecified protein-calorie malnutrition Tawanna Hugo Jan 06, 2018 13:33 Sandra Jackman MD Jan 06, 2018 16:23
[2018-01-06] MEDS: fentaNYL DRIP 250 ML IV PRN (15:39)
[2018-01-07] VITALS (15 sets, daily range): BP systolic 103–127; BP diastolic 55–96; PULSE 61–87; RESP 18; TEMP 96.8–98.1; O2SAT 92–100
[2018-01-07] MEDS: DEXTROSE 5% IN WATE 1000ML INJ 1,000 ML IV SCH ×2 (00:02→17:53)
[2018-01-07] MEDS: PROPOFOL 1000 MG/100 ML INJ 100 ML IV PRN ×5 (02:34→21:42)
[2018-01-07] MEDS: ALBUMIN 5% INJ 500 ML IV SCH ×2 (02:35→14:52)
[2018-01-07] MEDS: RESP: ALBUTEROL 2.5 MG/IPRATROPIUM 0.5 MG NEB (SCH) NEB ×2 (03:40→08:53)
[2018-01-07] MEDS: MEROPENEM INJ 1,000 MG in SODIUM CHLORIDE 0.9% INJ 100 ML IV SCH ×2 (04:32→16:15)
[2018-01-07 05:28] LABS: ALBUMIN 2.2 GM/DL (3.4-5.0); ALKALINE PHOSPHATASE 55 U/L (45-117); ALT (GPT) 17 U/L (12-78); AST (GOT) 23 U/L (15-37); BICARBONATE 22.6 MEQ/L (21.0-32.0); BLOOD UREA NITROGEN 53 MG/DL (7-18); CALCIUM 7.7 MG/DL (8.5-10.1); CHLORIDE 112 MEQ/L (98-107); CREATININE 2.55 MG/DL (0.60-1.30); GLOMERULAR FILTRATION RATE 25 ML/MIN (>89); GLUCOSE,RANDOM 121 MG/DL (74-106); MAGNESIUM 2.2 MG/DL (1.5-2.5); RANDOM VANCOMYCIN 30.3 COMMENT; SODIUM (NA) 146 MEQ/L (136-145); TOTAL BILIRUBIN ADULT 0.5 MG/DL (0.2-1.0); TOTAL PROTEIN 4.4 GM/DL (6.4-8.2)
[2018-01-07 05:50] LABS: HEMATOCRIT 22.3 % (39.0-51.0); HEMOGLOBIN 7.5 GM/DL (13.0-17.0); MEAN CELL VOLUME 83.3 FL (80.0-100.0); MEAN CORPUSCULAR HEMOGLOBIN 27.9 PG (27.0-34.0); MEAN CORPUSCULAR HGB CONC 33.5 % (32.0-36.0); MEAN PLATELET VOLUME 10.3 FL (7.0-11.0); PLATELET COUNT 70 TH/MM3 (150-450); RED BLOOD COUNT 2.68 MIL/MM3 (4.50-5.90); RED CELL DISTRIBUTION WIDTH 18.4 % (11.6-17.2); WHITE BLOOD COUNT 4.3 TH/MM3 (4.0-11.0)
--- NOTE | 2018-01-07 06:26 | RADRPT ---
EXAM DATE/TIME: 01/07/2018 05:05 [facility] COMPARISON: CHEST SINGLE AP, January 06, 2018, 3:14. INDICATIONS : Short of breath. MEDICAL HISTORY : Stroke. Hypertension. Lymphoma. SURGICAL HISTORY : None. ENCOUNTER: Subsequent ACUITY: 2 weeks PAIN SCORE: 0/10 LOCATION: Bilateral chest FINDINGS: Bilateral airspace disease. Endotracheal tube, nasogastric tube and right-sided port are unchanged. T he cardiomediastinal contours are unremarkable. Osseous structures are intact. CONCLUSION: Worsening bilateral airspace disease. Kaveh Perales MD on January 07, 2018 at 6:23 Board Certified Radiologist. This report was verified electronically.
[2018-01-07] MEDS: fentaNYL DRIP 250 ML IV PRN (07:07)
[2018-01-07 07:25] LABS: BANDS 13 % (0-6); LYMPHOCYTES 5 % (9-44); MONOCYTES 5 % (0-8); NEUTROPHIL # MANUAL DIFF 3.9 TH/MM3 (1.8-7.7); POLYS (SEG NEUTROPHILS) 77 % (16-70)
[2018-01-07 07:26] LABS: OVALOCYTES 1+ (NORMAL)
[2018-01-07 07:27] LABS: TOXIC GRANULATION 1+ (NORMAL)
[2018-01-07] MEDS: INSULIN ASPART SUPPLEMENTAL SCALE SQ SCH ×3 (08:00→18:00)
[2018-01-07] MEDS: DOCUSATE SODIUM 50 MG/SENNA 8.6 MG TAB PO SCH (08:11)
[2018-01-07] MEDS: ATORVASTATIN 80 MG TAB PO SCH (08:11)
[2018-01-07] MEDS: MULTIVITAMIN TAB PO SCH (08:11)
[2018-01-07] MEDS: predniSONE 10 MG TAB PO SCH ×2 (08:11→21:35)
[2018-01-07] MEDS: guaiFENesin E.R. 600 MG TAB PO SCH ×2 (08:11→21:35)
[2018-01-07] MEDS: PANTOPRAZOLE SOD 40 MG DELAYED RELEASE TAB PO SCH ×2 (08:11→21:35)
[2018-01-07] MEDS: SODIUM CHLORIDE 0.9% FLUSH 10 ML FLUSH IV FLUSH SCH ×2 (08:12→20:16)
[2018-01-07] MEDS: ASPIRIN EC 81 MG TABEC PO SCH (08:12)
[2018-01-07] MEDS: CHLORHEXIDINE 0.12% (ORAL KIT) 15 ML CUP MT SCH ×2 (08:12→20:16)
[2018-01-07] MEDS: ALLOPURINOL 300 MG TAB PO SCH (08:30)
[2018-01-07] MEDS: BUDESONIDE-FORMOTEROL 160/4.5 MCG INHALER INH SCH ×2 (09:00→21:00)
[2018-01-07] MEDS: MEGESTROL ACETATE SUSP 400 MG/10 ML CUP PO SCH (11:41)
[2018-01-07] MEDS: MICAFUNGIN INJ 100 MG in SODIUM CHLORIDE 0.9% INJ 100 ML IV SCH (12:13)
--- NOTE | 2018-01-07 12:26 | PD.ONC.PN ---
Subjective Subjective Remarks Afebrile Remains intubated and sedated Chest x-ray looks worse today Objective Data Date Time Temp Pulse Resp B/P (MAP) Pulse Ox O2 Delivery O2 Flow Rate FiO2 01/07/18 10:00 68 01/07/18 08:56 100 40 01/07/18 08:56 100 Ventilator 40 01/07/18 08:00 96.8 61 18 105/55 (72) 100 01/07/18 08:00 40 01/07/18 08:00 65 01/07/18 07:30 97 Mechanical Ventilator 40 01/07/18 06:00 65 01/07/18 04:00 97.4 66 18 103/57 (72) 97 01/07/18 04:00 66 01/07/18 04:00 40 01/07/18 03:40 97 40 01/07/18 02:00 62 01/07/18 00:00 82 01/07/18 00:00 40 01/07/18 00:00 98.1 82 18 111/61 (78) 92 01/06/18 23:47 96 40 01/06/18 22:00 64 01/06/18 20:23 97 40 01/06/18 20:18 60 01/06/18 20:00 40 01/06/18 20:00 97 Mechanical Ventilator 40 01/06/18 20:00 97.9 64 18 100/58 (72) 97 01/06/18 18:00 74 01/06/18 16:00 40 01/06/18 16:00 66 01/06/18 16:00 97.6 69 18 116/58 (77) 97 01/06/18 15:34 98 40 01/06/18 14:00 66 01/07/18 01/07/18 01/07/18 07:00 15:00 23:00 Intake Total 2597 ml Output Total 850 ml Balance 1747 ml Result Diagram: 01/07/18 0425 01/07/18 0425 Laboratory Results Laboratory Tests Test 01/07/18 04:25 01/07/18 04:53 White Blood Count 4.3 TH/MM3 Red Blood Count 2.68 MIL/MM3 Hemoglobin 7.5 GM/DL Hematocrit 22.3 % Mean Corpuscular Volume 83.3 FL Mean Corpuscular Hemoglobin 27.9 PG Mean Corpuscular Hemoglobin Concent 33.5 % Red Cell Distribution Width 18.4 % Platelet Count 70 TH/MM3 Mean Platelet Volume 10.3 FL CBC Comment AUTO DIFF Differential Total Cells Counted 100 Neutrophils % (Manual) 77 % Band Neutrophils % 13 % Lymphocytes % 5 % Monocytes % 5 % Neutrophils # (Manual) 3.9 TH/MM3 Differential Comment FINAL DIFF MANUAL Toxic Granulation 1+ Platelet Estimate LOW Platelet Morphology Comment ENLARGED Ovalocytes 1+ Blood Urea Nitrogen 53 MG/DL Creatinine 2.55 MG/DL Random Glucose 121 MG/DL Total Protein 4.4 GM/DL Albumin 2.2 GM/DL Calcium Level 7.7 MG/DL Phosphorus Level 3.0 MG/DL Magnesium Level 2.2 MG/DL Alkaline Phosphatase 55 U/L Aspartate Amino Transf (AST/SGOT) 23 U/L Alanine Aminotransferase (ALT/SGPT) 17 U/L Total Bilirubin 0.5 MG/DL Sodium Level 146 MEQ/L Potassium Level 3.6 MEQ/L Chloride Level 112 MEQ/L Carbon Dioxide Level 22.6 MEQ/L Anion Gap 11 MEQ/L Estimat Glomerular Filtration Rate 25 ML/MIN Random Vancomycin Level 30.3 COMMENT Blood Gas Puncture Site RT RADIAL Blood Gas Patient Temperature 98.6 Blood Gas HCO3 23 mmol/L Blood Gas Base Excess -0.6 mmol/L Blood Gas Oxygen Saturation 95 % Arterial Blood pH 7.46 Arterial Blood Partial Pressure CO2 33 mmHg Arterial Blood Partial Pressure O2 81 mmHg Arterial Blood Oxygen Content 10.2 Vol % Arterial Blood Carboxyhemoglobin 1.1 % Arterial Blood Methemoglobin 1.1 % Blood Gas Hemoglobin 7.6 G/DL Oxygen Delivery Device VENTILATOR Blood Gas Ventilator Setting SEE COMMENT Blood Gas Inspired Oxygen 40 % Administered Medications Medications (Trade) Dose Ordered Sig/Candace Route PRN Reason Start Time Stop Time Status Last Admin Dose Admin Sodium Chloride (NS Flush) 2 ml BID IV FLUSH 12/22/17 21:00 01/07/18 08:12 Ondansetron HCl (Zofran Inj) 4 mg Q6H PRN IVP NAUSEA OR VOMITING 12/22/17 18:15 01/01/18 10:02 Senna/Docusate Sodium (Mary Kay-Colace) 1 tab BID PO 12/22/17 21:00 01/05/18 20:12 Albuterol/ Ipratropium (Duoneb Neb) 1 ampule Q4HR NEB PRN NEB SOB/WHEEZING 12/22/17 20:15 01/01/18 10:08 Zolpidem Tartrate (Ambien) 5 mg HS PRN PO INSOMNIA 12/22/17 20:15 12/26/17 20:30 Pantoprazole Sodium (Protonix) 40 mg Q12HR PO 12/22/17 21:00 01/06/18 20:35 Megestrol Acetate (Megace Liq) 800 mg DAILY PO 12/23/17 09:00 01/07/18 11:41 Budesonide/ Formoterol Fumarate (Symbicort 160-4.5 Mcg Inh) 1 puff Q12HR INH 12/22/17 21:00 01/01/18 08:53 Aspirin (Ecotrin Ec) 81 mg DAILY PO 12/23/17 09:00 01/06/18 08:01 Atorvastatin Calcium (Lipitor) 80 mg DAILY PO 12/23/17 09:00 01/07/18 08:11 Multivitamins (Theragran) 1 tab DAILY PO 12/23/17 09:00 01/07/18 08:11 Heparin Sodium (Porcine) (Heparin Central Flush) 250 units UNSCH PRN IV FLUSH SEE PROTOCOL 12/22/17 20:30 12/27/17 20:27 Insulin Aspart (NovoLOG SUPPLEMENTAL SCALE) 1 ACHS SLIDING SCALE SQ 12/22/17 21:00 01/01/18 21:00 Guaifenesin/ Dextromethorphan (Robitussin Dm 200-20 Mg/10 ml Liq) 10 ml Q4H PRN PO cough interfering with rest 12/22/17 21:00 12/26/17 18:27 Guaifenesin (Mucinex Er) 600 mg BID PO 12/23/17 21:00 01/06/18 20:35 Allopurinol (Zyloprim) 300 mg DAILY PO 12/26/17 09:00 01/07/18 08:30 Acetaminophen (Tylenol) 650 mg Q4H PRN PO FEVER>[id number] 12/26/17 14:45 12/26/17 20:32 Vancomycin HCl 1500 mg/Sodium Chloride 515 ml @ 250 mls/hr Q12H IV 12/27/17 15:00 Future Hold 01/03/18 03:40 Morphine Sulfate (Morphine Inj) 2 mg Q2HR PRN IV PUSH pain3-5 12/27/17 15:30 12/31/17 21:18 Morphine Sulfate (Morphine Inj) 4 mg Q2HR PRN IV PUSH PAIN SCALE 6 TO 8 12/27/17 15:45 12/29/17 03:43 Acetaminophen (Tylenol) 650 mg Q4H PRN PO SEE LABEL COMMENTS 12/31/17 16:30 12/31/17 21:19 Calcium Carbonate (Tums Chew) 500 mg Q12HR PRN CHEW indigestion 12/31/17 16:15 01/01/18 05:27 Prednisone (Deltasone) 10 mg BID PO 01/01/18 21:00 01/07/18 08:11 Fentanyl Citrate 250 ml @ 0 mls/hr TITRATE PRN IV SEDATION 01/01/18 15:15 01/07/18 07:07 Chlorhexidine Gluconate (Peridex 0.12% Liq) 15 ml BID@08,20 MT 01/01/18 20:00 01/07/18 08:12 Norepinephrine Bitartrate 250 ml @ 7.5 mls/hr TITRATE PRN IV Blood pressure management 01/01/18 17:00 01/02/18 21:09 Filgrastim 480 mcg/Dextrose 26.6 ml @ 53.2 mls/hr DAILY@14 IV 01/02/18 14:00 01/06/18 12:56 Propofol 100 ml @ 2.757 mls/ hr TITRATE PRN IV SEDATION 01/02/18 11:15 01/07/18 10:41 Micafungin Sodium 100 mg/Sodium Chloride 100 ml @ 100 mls/hr Q24H IV 01/02/18 13:00 01/07/18 12:13 Dextrose 1,000 ml @ 75 mls/hr [id number] IV 01/04/18 07:00 01/07/18 00:02 Meropenem 1000 mg/ Sodium Chloride 100 ml @ 200 mls/hr Q12H IV 01/05/18 16:00 01/07/18 04:32 Albumin Human 500 ml @ 250 mls/hr Q12H IV 01/05/18 14:00 01/07/18 02:35 Objective Remarks GENERAL: Elderly male resting in bed intubated and sedated SKIN: Warm and dry. HEAD: Normocephalic. EYES: No injection or drainage. NECK: Supple, trachea midline. CARDIOVASCULAR: Regular rate and rhythm without murmurs. RESPIRATORY: Clear anteriorly. GASTROINTESTINAL: Abdomen soft, non-tender, nondistended. EXTREMITIES: No cyanosis. 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 Monitor CBC. Transfuse 1 unit packed red blood cells if hemoglobin trending down tomorrow. CXR shows worsening disease. Abx per ID, Vent mgmt by music teacher. 01/06: Patient no longer neutropenic. Continue Neupogen today. Monitor CBC. 01/05: Noted white blood cells minimally improved. Continue Neupogen for now. Await results from CT brain. Supportive care. 01/04: remains on vent. Off pf pressors. Pancytopenia with Neutropenia. Continue neupogen. Vent management per Survey Interviewer. Extensive d/w and DIL ( DIAL LATHE OPERATOR) . answered their questions. Continue maximal support. 01/03: Continue Neupogen. Transfuse 1 unit packed red blood cells today for hemoglobin of 7.5. Monitor CBC. 01/02: patient remains intubated, sedated. start Neupogen for neutropenia + infection 01/01: patient in respiratory failure. intubated and transferring to intensive care. 12/31: C. difficile negative. Bone marrow biopsy shows no lymphoma involvement. Cytology from thoracentesis pending. Transfuse 1 unit PRBC for symptomatic with hgb 7.7. Patient would benefit from inpatient rehab for strengthening 12/28: continue solu-medrol. await thoracentesis. consult OT. 12/27: start Solu-medrol 40mg IV q 6. consult pulmonology for worsening infiltrates, pleural effusions. monitor CBC, counts dropping. 12/26: CT chest shows Bilateral Pl effusion. Continue aggressive diuresis. Had CHOP C1D1 yesterday. Tolerated well. Next chemo in 3 weeks as outpt. Continue allopurinol and prednisone. 12/25: CTA shows no PE. +LAD, PE. dyspnea likely d/t lymphoma. will give Solu- medrol 1g IV and start CHOP today. Anaplastic large cell, non-Hodgkin's lymphoma, at least stage III. --unclear whether he has any B symptoms, but this could be most likely given that he has significant weight loss, which is one of the symptoms of lymphoma. --Leukocytosis, anemia and neutrophilia, most likely due to bone marrow involvement by the lymphoma until proven otherwise. (2) Malnutrition ICD Codes: E46 - Unspecified protein-calorie malnutrition Plan: --tube feeds stopped at 715AM on 01/01/18 d/t inability to tolerate tube feeds. (3) Decubitus skin ulcer ICD Codes: L89.90 - Pressure ulcer of unspecified site, unspecified stage Plan: --wound care following. (4) Respiratory failure ICD Codes: J96.90 - Respiratory failure, unspecified, unspecified whether with hypoxia or hypercapnia Plan: --d/t aspiration from tube feeds --CTA showed no PE. --d/t pleural effusions, going for thoracentesis, 12/28 --s/p CHOP chemotherapy and Solu-Medrol 1G IV --pulmonology following, appreciate recommendations (5) Pancytopenia due to antineoplastic chemotherapy ICD Codes: D61.810 - Antineoplastic chemotherapy induced pancytopenia; T45.1X5A - Adverse effect of antineoplastic and immunosuppressive drugs, initial encounter Plan: --Neupogen started on 01/02. --monitor and transfuse as needed (6) Renal insufficiency ICD Codes: N28.9 - Disorder of kidney and ureter, unspecified Plan: --Nephrology consulted Assessment 72y/o male with newly diagnosed anaplastic large cell NHL. h/o COPD, hypercholesterolemia, hypertension, history of previous stroke. HPI: started 8 weeks ago with a cough mixed with greenish phlegm and shortness of breath. CT cap showed diffuse lymphadenopathy on both sides of the diaphragm. PET scan showed increased uptake in the lymph nodes involving the neck, chest, mediastinal and hilar area, retroperitoneum and pelvic lymph nodes. biopsy of the left neck mass=anaplastic large cell NHL echocardiogram, LVEF=55-70%. MUGA scan, showed EF of 60%. Attending Statement The exam, history, and the medical decision-making described in the above note were completed with the assistance of the mid-level provider. I reviewed and agree with the findings presented. I attest that I had a [id number] encounter with the patient on the same day, and personally performed and documented my assessment and findings in the medical record. Sedated , on vent. Neutropenia has resolved. Last dose of neupogen today. Monitor cbc and continue tx support. Problem Qualifiers (1) Malnutrition: Qualified Codes: E46 - Unspecified protein-calorie malnutrition Tawanna Hugo Jan 07, 2018 12:26 Josy Suarez MD Jan 07, 2018 17:20
--- NOTE | 2018-01-07 13:47 | HHI.NPPN ---
Subjective History of Present Illness 72-year-old male with history of large cell lymphoma, acute renal failure, respiratory failure on ventilator Objective Data Data Vital Signs Date Time Temp Pulse Resp B/P (MAP) Pulse Ox O2 Delivery O2 Flow Rate FiO2 01/07/18 12:25 94 40 01/07/18 12:00 68 01/07/18 12:00 40 01/07/18 12:00 97.0 69 18 119/63 (81) 100 01/07/18 10:00 68 01/07/18 08:56 100 40 01/07/18 08:56 100 Ventilator 40 01/07/18 08:00 96.8 61 18 105/55 (72) 100 01/07/18 08:00 40 01/07/18 08:00 65 01/07/18 07:30 97 Mechanical Ventilator 40 01/07/18 06:00 65 01/07/18 04:00 97.4 66 18 103/57 (72) 97 01/07/18 04:00 66 01/07/18 04:00 40 01/07/18 03:40 97 40 01/07/18 02:00 62 01/07/18 00:00 82 01/07/18 00:00 40 01/07/18 00:00 98.1 82 18 111/61 (78) 92 01/06/18 23:47 96 40 01/06/18 22:00 64 01/06/18 20:23 97 40 01/06/18 20:18 60 01/06/18 20:00 40 01/06/18 20:00 97 Mechanical Ventilator 40 01/06/18 20:00 97.9 64 18 100/58 (72) 97 01/06/18 18:00 74 01/06/18 16:00 40 01/06/18 16:00 66 01/06/18 16:00 97.6 69 18 116/58 (77) 97 01/06/18 15:34 98 40 01/06/18 14:00 66 -: 01/07/18 0425 01/07/18 0425 Physical Exam General Appearance: Well Developed Neck Neck Exam: Neck Supple Pulmonary Resp Exam: Rhonchi Cardiology CV Exam: Regular, Normal Sinus Rhythm Gastrointestinal/Abdomen GI Exam: Soft, Non-Tender, Bowel Sounds Present Extremeties Extremities Exam: Moderate Edema Assessment/Plan Problem List: (1) Acute renal failure ICD Codes: N17.9 - Acute kidney failure, unspecified Status: Acute Plan: he has hypotension contributing to ARF FeNa low <1 on Albumin 5% 250 ml q 12 along with fluids positive balance may dc it d/w Dr. 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
[2018-01-07] MEDS ORDERED: FILGRASTIM 480 MCG/1.6 ML VIAL SQ ONE (14:00)
--- NOTE | 2018-01-07 14:38 | HHI.GIFU ---
Subjective Remarks Sedated, eyes closed, family members in room Afebrile Tube feedings at 40 cc an hour, residuals 50 cc or less Continues with ventilator management (Suyapa Jim) Objective Vitals I&O Vital Signs Date Time Temp Pulse Resp B/P (MAP) Pulse Ox O2 Delivery O2 Flow Rate FiO2 01/07/18 12:25 94 40 01/07/18 12:00 68 01/07/18 12:00 40 01/07/18 12:00 97.0 69 18 119/63 (81) 100 01/07/18 10:00 68 01/07/18 08:56 100 40 01/07/18 08:56 100 Ventilator 40 01/07/18 08:00 96.8 61 18 105/55 (72) 100 01/07/18 08:00 40 01/07/18 08:00 65 01/07/18 07:30 97 Mechanical Ventilator 40 01/07/18 06:00 65 01/07/18 04:00 97.4 66 18 103/57 (72) 97 01/07/18 04:00 66 01/07/18 04:00 40 01/07/18 03:40 97 40 01/07/18 02:00 62 01/07/18 00:00 82 01/07/18 00:00 40 01/07/18 00:00 98.1 82 18 111/61 (78) 92 01/06/18 23:47 96 40 01/06/18 22:00 64 01/06/18 20:23 97 40 01/06/18 20:18 60 01/06/18 20:00 40 01/06/18 20:00 97 Mechanical Ventilator 40 01/06/18 20:00 97.9 64 18 100/58 (72) 97 01/06/18 18:00 74 01/06/18 16:00 40 01/06/18 16:00 66 01/06/18 16:00 97.6 69 18 116/58 (77) 97 01/06/18 15:34 98 40 I/O 01/06/18 01/06/18 01/06/18 01/07/18 01/07/18 01/07/18 07:00 15:00 23:00 07:00 15:00 23:00 Intake Total 2476 ml 400 ml 157 ml 2597 ml Output Total 250 ml 750 ml 850 ml Balance 2226 ml 400 ml -593 ml 1747 ml IV Total 2153 ml 400 ml 1879 ml Tube Feeding 203 ml 157 ml 368 ml Other 120 ml 350 ml Output Urine Total 250 ml 700 ml 850 ml Stool Total 50 ml Tube Feeding Residual Discard 0 ml # Bowel Movements 1 0 Laboratory Laboratory Tests Test 01/07/18 04:25 01/07/18 04:53 White Blood Count 4.3 Red Blood Count 2.68 Hemoglobin 7.5 Hematocrit 22.3 Mean Corpuscular Volume 83.3 Mean Corpuscular Hemoglobin 27.9 Mean Corpuscular Hemoglobin Concent 33.5 Red Cell Distribution Width 18.4 Platelet Count 70 Mean Platelet Volume 10.3 CBC Comment AUTO DIFF Differential Total Cells Counted 100 Neutrophils % (Manual) 77 Band Neutrophils % 13 Lymphocytes % 5 Monocytes % 5 Neutrophils # (Manual) 3.9 Differential Comment FINAL DIFF MANUAL Toxic Granulation 1+ Platelet Estimate LOW Platelet Morphology Comment ENLARGED Ovalocytes 1+ Blood Urea Nitrogen 53 Creatinine 2.55 Random Glucose 121 Total Protein 4.4 Albumin 2.2 Calcium Level 7.7 Phosphorus Level 3.0 Magnesium Level 2.2 Alkaline Phosphatase 55 Aspartate Amino Transf (AST/SGOT) 23 Alanine Aminotransferase (ALT/SGPT) 17 Total Bilirubin 0.5 Sodium Level 146 Potassium Level 3.6 Chloride Level 112 Carbon Dioxide Level 22.6 Anion Gap 11 Estimat Glomerular Filtration Rate 25 Random Vancomycin Level 30.3 Blood Gas Puncture Site RT RADIAL Blood Gas Patient Temperature 98.6 Blood Gas HCO3 23 Blood Gas Base Excess -0.6 Blood Gas Oxygen Saturation 95 Arterial Blood pH 7.46 Arterial Blood Partial Pressure CO2 33 Arterial Blood Partial Pressure O2 81 Arterial Blood Oxygen Content 10.2 Arterial Blood Carboxyhemoglobin 1.1 Arterial Blood Methemoglobin 1.1 Blood Gas Hemoglobin 7.6 Oxygen Delivery Device VENTILATOR Blood Gas Ventilator Setting SEE COMMENT Blood Gas Inspired Oxygen 40 Date/Time Source Procedure Growth Status 01/01/18 17:57 Blood Peripheral Aerobic Blood Culture - Final NO GROWTH IN 5 DAYS Complete 01/01/18 17:57 Blood Peripheral Anaerobic Blood Culture - Final NO GROWTH IN 5 DAYS Complete 12/28/17 12:15 Fluid Pleural Fluid Fungal Smear - Final NO FUNGAL ELEMENTS SEEN. Resulted 12/28/17 12:15 Fluid Pleural Fluid Fungal Culture - Preliminary NO GROWTH IN 1 WEEK Resulted 01/01/18 17:15 Sputum Endotracheal Gram Stain - Final Complete 01/01/18 17:15 Sputum Endotracheal Sputum Culture - Final HEAVY GROWTH NORMAL RESPIRATORY LISA Complete 01/01/18 17:15 Urine Catheterized Urine Urine Culture - Final NO GROWTH IN 48 HOURS. Complete Imaging Last Impressions Chest X-Ray 01/06/18 0600 Signed Impressions: Service Date/Time: Saturday, January 06, 2018 03:14 - CONCLUSION: Perihilar and bibasal opacities without significant change. Bijan Loredo MD Renal Ultrasound 01/05/18 0000 Signed Impressions: Service Date/Time: Friday, January 05, 2018 08:00 - CONCLUSION: Echogenic kidneys suggesting medical renal disease. Some ascites. Bilateral pleural effusions. Lee Mijares MD Head CT 01/05/18 0000 Signed Impressions: Service Date/Time: Friday, January 05, 2018 11:41 - CONCLUSION: 1. No acute abnormality is seen. 2. Old lacunar infarct at the left basal ganglia. 3. Fluid in the mastoid air cells on the right. Andres Valero MD Small Bowel X-Ray 01/03/18 0000 Signed Impressions: Service Date/Time: December 14:27 - CONCLUSION: 1. No leakage identified on injection through gastrostomy tube. No small bowel obstruction or significant dilatation. Elbert Carrasquillo MD Abdomen/Pelvis CT 01/02/18 0000 Signed Impressions: Service Date/Time: Tuesday, January 02, 2018 21:38 - CONCLUSION: 1. Free intraperitoneal air of unknown etiology. On the supine view most of the free air is around the gastrostomy tube and tip of the nasogastric tube as discussed above. 2. Mild to moderate ascites. Moderate anasarca. 3. Moderate bilateral effusions with basilar atelectasis. 4. Nonobstructing right renal calculus. Hay catheter in bladder. Elbert Carrasquillo MD Chest CT 12/30/17 0000 Signed Impressions: Service Date/Time: Saturday, December 30, 2017 21:13 - CONCLUSION: 1. Free intraperitoneal air in the upper abdomen of uncertain etiology. There is a gastrostomy present. 2. Moderate bilateral pleural effusions with compressive atelectasis. Patchy air space consolidation in the right upper lobe. 3. Moderate anasarca and ascites. 4. Findings called to the floor at the time of dictation. Elbert Carrasquillo MD Chest Ultrasound 12/27/17 0000 Signed Impressions: Service Date/Time: December 21:39 - CONCLUSION: Large left pleural effusion and would be amenable to thoracentesis. Frandy was made on the overlying skin. Andres Parekh MD Bone Biopsy CT 12/25/17 1142 Signed Impressions: Service Date/Time: Monday, December 25, 2017 12:32 - CONCLUSION: 1. Uncomplicated CT guided bone marrow aspirate. 2. Uncomplicated CT guided bone marrow biopsy. Lee Mijares MD CT Angiography 12/25/17 0000 Signed Impressions: Service Date/Time: Monday, December 25, 2017 09:26 - CONCLUSION: 1. No CT evidence for pulmonary artery embolism. 2. Moderate to large bilateral pleural effusions with associated compressive atelectasis at the lung bases. 3. 8mm nodule in the right middle lobe. Followup CT examination may be performed at 6 months to document stability if this has not been evaluated previously. 4. Very mildly prominent mediastinal and hilar nodes and partially imaged upper abdominal lymphadenopathy in this patient with history of lymphoma. Miguel Ashton MD Physical Exam HEENT: Normocephalic; atraumatic; no jaundice. Obese CHEST: Respirations synchronized with vent, mechanically ventilated via ETT CARDIAC: RRR ABDOMEN: Soft, nondistended, PEG site clean and dry , keep things 40 cc an hour ; bowel sounds active. Rectal bag has been DC'd on 12/09/17 SKIN: Normal; no rash; no jaundice. Generalized edema [employer]: Sedated, unresponsive (Suyapa Jim) Assessment and Plan Plan Initial consult Weight loss with new dx of naplastic large cell lymphoma- Tx from [facility] for oncology treatment Pancytopenia- Pt on Neupogen, Neutropenic precautions, antifungal and abx per ID (01/03) Reconsult for PEG tube eval EGD with PEG placement (12/24) --> Ulcer in the first portion of the duodenum. Otherwise normal Pt was on Tube feeding Jevity @ 60 mL/hr- stopped because pt was not tolerating. He became hypoxic, O2 not sustained despite NRB so was intubated, during intubation a significant amount of TF was noted to be aspirated. TF placed on hold. Unclear why pt has an OG tube, most likely placed during intubation. Abnormal CT findings --> Free intraperitoneal air of unknown etiology. On the supine view most of the free air is around the G-tbue and tip of OG tube. Mild to moderate ascites. Moderate anasarca. Currently PEG tube to LIWS with bile colored drainage, per sister in law at bedside, yesterday drainage was stool colored. (01/04) --> Per RN pt had 2 large, loose BMs this morning. PEG tube to LIWS, suction was turned off last night so unsure if output is decreasing. KUB With SBFT- Gastrografin through PEG notes no leakage identified on injection through G tube. No small bowel obstruction or significant dilation. If output decreasing through PEG ok to restart TF. Discussed with RN states she will monitor. (01/05) Per RN pt still had significant amount of output through OG and PEG tube yesterday so TF was not started. Output has decreased significantly today. No output in canister and it was changed early this AM. Will try to start trickle feeding today. (01/06) Pt currently on Jevity 1.5 running at 10mL/hr. Will reconsult nutrition to evaluate, current recommendations are based on bolus feedings. Unsure he will tolerate this, that was based on pt being discharged to rehab prior to ending up in ICU. Will titrate Jevity up as tolerated. If not tolerating, then pt may benefit from GJ tube. 01/07/18, , tube feeds and tolerated with 50 cc or less residual at 40 cc an hour. Abdomen is taut, active bowel sounds, some minimal arousing much from patient during abdominal palpation . Plan: - Titrate Jevity 1.5 up to 50mL/hr for now until further nutrition recommendations - Monitor residuals - Monitor stool output - Further recommendations based on clinical course, consider GJ tube. Pt has been seen and examined by myself and Dr. Schneider and this note is written on his behalf (Suyapa Jim) Physician Comments Patient seen and examined Agree with above Continue with current supportive care Monitor lab We will ask IR to convert the PEG tube to a GJ tube (Cash Schneider MD) Suyapa Jim Jan 07, 2018 14:38 Cash Schneider MD Jan 07, 2018 23:07
[2018-01-07] MEDS ORDERED: fentaNYL DRIP 250 ML IV PRN (14:45)
--- NOTE | 2018-01-07 15:09 | HHI.CCPN ---
Subjective Remarks/Hospital Course 01/01: 72-year-old gentleman with history of hypertension, hyperlipidemia and previous CVA, COPD, now newly diagnosed with anaplastic large cell non-Hodgkin' s lymphoma now transferred from [facility] on 12/23 for further treatment. On 12/25 patient received chemotherapy -CHOP regimen. Hospitalization further significant for PEG placement due to malnutrition and lack of appetite and thoracentesis for pleural effusion. Patient was being followed by pulmonary, cardiology and hematology services. Over the night patient had increased O2 requirements with high tube feed residual and concern for aspiration. A rapid response was called earlier this afternoon for worsening hypoxia despite NRM. Patient was emergently intubated and upon intubation he was found to have significant amount of tube feeds in the airway. An NG tube was placed on suction with 750 cc suctioned from the stomach. Patient was started on midazolam and fentanyl drips and phenylephrine for BP support. Patient was seen immediately on ICU arrival, 100% O2 with SPO2 100%. Patient requires 20 mics per minute of phenylephrine infusion. He is intubated and sedated, unresponsive. 01/02: No events over the night. Patient remains critically ill. He is currently sedated and intubated. He remains on phenylephrine at 80 mics per minute. FiO2 down to 0.6. T-max 98.6, I/O 1550/400. 01/03: Patient did well over the night. Norepinephrine weaned off. FiO2 currently at 0.5. Patient remains on a PEEP of 10. Sedation accomplished with propofol and fentanyl. Tmax 98.4. 01/04: Multiple episodes of diarrhea overnight. No C. difficile sent. Urine output decreased, 300 mL's over last 12 hours. Patient does not require any pressors, sedation is maintained with propofol at 30 and fentanyl at 150. During sedation vacation patient moves all extremities, agitated, but does not follow commands. Currently he is sedated and intubated. Morning chest x-ray reviewed, slight improvement in bibasilar infiltrates. 01/05: No events over the night. T-max of 98.6. Urine output 550 mL's over the last 24 hours. Ventilator on 0.4 FiO2. Sedation was stopped this morning, patient agitated moving all extremities but not following commands. Morning chest x-ray reviewed, no significant change compared to yesterday's, ET tube approximately 7 cm above clem. 01/06: Patient remains afebrile, on no pressors. Oxygenation down to 0.4 FiO2, but PEEP remains at 10. Trickle feeds started yesterday, still having residuals. Patient remains on low-dose propofol and fentanyl for sedation. Morning chest x-ray reviewed, still with bibasilar opacities, unchanged. 01/07: Remains sedated, orally intubated on mechanical ventilation. Fentanyl at 150 mics per minute decreased to 50 mics per minute. Abdomen remains distended. Tolerating tube feeds at 20 cc/h with residual 60 cc. Objective Vital Signs Date Time Temp Pulse Resp B/P (MAP) Pulse Ox O2 Delivery O2 Flow Rate FiO2 01/07/18 12:25 94 40 01/07/18 12:00 68 01/07/18 12:00 97.0 18 119/63 (81) 01/07/18 08:56 Ventilator Intake and Output 01/07/18 01/07/18 01/08/18 08:00 16:00 00:00 Intake Total 2597 ml Output Total 850 ml Balance 1747 ml Result Diagram: 01/07/18 0425 01/07/18 0425 Other Results Laboratory Tests Test 01/07/18 04:53 Blood Gas Puncture Site RT RADIAL Blood Gas Patient Temperature 98.6 Blood Gas HCO3 23 mmol/L (22-26) Blood Gas Base Excess -0.6 mmol/L (-2-2) Blood Gas Oxygen Saturation 95 % (90-100) Arterial Blood pH 7.46 (7.380-7.420) Arterial Blood Partial Pressure CO2 33 mmHg (38-42) Arterial Blood Partial Pressure O2 81 mmHg (61-120) Arterial Blood Oxygen Content 10.2 Vol % (12.0-20.0) Arterial Blood Carboxyhemoglobin 1.1 % (0-4) Arterial Blood Methemoglobin 1.1 % (0-2) Blood Gas Hemoglobin 7.6 G/DL (12.0-16.0) Oxygen Delivery Device VENTILATOR Blood Gas Ventilator Setting SEE COMMENT Blood Gas Inspired Oxygen 40 % Imaging Last 24 hours Impressions Chest X-Ray 01/04/18 0600 Signed Impressions: Service Date/Time: Thursday, January 04, 2018 03:22 - CONCLUSION: 1. Interval improvement in bibasilar opacity. 2. The patient remains intubated. Bijan Loredo MD Last Impressions Chest X-Ray 01/03/18 0600 Signed Impressions: Service Date/Time: December 02:08 - CONCLUSION: Increasing left lower lobe consolidation and increasing right pleural effusion. Siva Cooley MD Abdomen/Pelvis CT 01/02/18 0000 Signed Impressions: Service Date/Time: Tuesday, January 02, 2018 21:38 - CONCLUSION: 1. Free intraperitoneal air of unknown etiology. On the supine view most of the free air is around the gastrostomy tube and tip of the nasogastric tube as discussed above. 2. Mild to moderate ascites. Moderate anasarca. 3. Moderate bilateral effusions with basilar atelectasis. 4. Nonobstructing right renal calculus. Hay catheter in bladder. Elbert Carrasquillo MD Chest CT 12/30/17 0000 Signed Impressions: Service Date/Time: Saturday, December 30, 2017 21:13 - CONCLUSION: 1. Free intraperitoneal air in the upper abdomen of uncertain etiology. There is a gastrostomy present. 2. Moderate bilateral pleural effusions with compressive atelectasis. Patchy air space consolidation in the right upper lobe. 3. Moderate anasarca and ascites. 4. Findings called to the floor at the time of dictation. Elbert Carrasquillo MD Chest Ultrasound 12/27/17 0000 Signed Impressions: Service Date/Time: December 21:39 - CONCLUSION: Large left pleural effusion and would be amenable to thoracentesis. Frandy was made on the overlying skin. Andres Parekh MD Bone Biopsy CT 12/25/17 1142 Signed Impressions: Service Date/Time: Monday, December 25, 2017 12:32 - CONCLUSION: 1. Uncomplicated CT guided bone marrow aspirate. 2. Uncomplicated CT guided bone marrow biopsy. Lee Mijares MD CT Angiography 12/25/17 0000 Signed Impressions: Service Date/Time: Monday, December 25, 2017 09:26 - CONCLUSION: 1. No CT evidence for pulmonary artery embolism. 2. Moderate to large bilateral pleural effusions with associated compressive atelectasis at the lung bases. 3. 8mm nodule in the right middle lobe. Followup CT examination may be performed at 6 months to document stability if this has not been evaluated previously. 4. Very mildly prominent mediastinal and hilar nodes and partially imaged upper abdominal lymphadenopathy in this patient with history of lymphoma. Miguel Ashton MD Objective Remarks General - elderly gentleman intubated and sedated, ill-appearing, poorly responsive HEENT - pupils are equal, reactive, sclerae are anicteric, neck is supple, no rigidity, neck veins distended, + NGT, + LIJ CVC (01/01) -site remains clean, + ETT CV - irregular heart sounds, no murmurs, rubs or gallops Chest -still with scattered coarse breath sounds bilateral, no wheezes, good air entry, [id number] right chest -site remains clean Abdomen - soft, obese, appears non-tender, BS present, no hepatomegaly, no splenomegaly, + PEG Extremities - 3+ edema, + peripheral pulses, warm, no cyanosis Neuro - intubated, pupils equal and reactive, grimaces to pain but does not follow commands A/P Assessment and Plan 1. Acute hypoxic and hypercapnic respiratory failure - slow improvement in O2 requirements, currently down to 0.4 FiO2 2. Likely aspiration pneumonia 3. Circulatory shock, likely septic vs med induced, requiring low-dose pressor -weaned off vasopressors 4. Neutropenia with ANC count less than 500 - slowly trending up 5. NHL, received CHOP therapy on 12/25 6. Sacral decubitus 7. CYNDI -likely ATN due to hypotension 8. Hypokalemia -replete 9. Hypernatremia - likely iatrogenic, improving 10. Free air in the abdomen. On exam abdomen is soft and nontender 11. Atrial fibrillation -rate controlled 12. Pancytopenia -slowly improving 1. Continue PRVC at current vent settings. Decrease PEEP from 8 to 6 2. Vent bundle and bronchodilators 3. Continue meropenem, vancomycin and micafungin per ID 4. Sedation vacation daily. Decrease fentanyl 250 mics per hour due to ileus. Continue propofol 5. Not ready for weaning yet but if he tolerates lower PEEP hopefully can come off the vent early next week 6. Strict intake output, monitor and replete electrolites, follow BUN/ creatinine. 7. Appreciate nephrology consult. KVO IV fluids and discontinue albumin IV 8. CT head with no acute findings 01/05 9. Neupogen and PRBC transfusion per onc 10. GI and DVT prophylaxis 11. Advance tube feeds to goal 40cc/hr Jevity 1.5 12. Replete potassium Patient is critically ill with hypoxic respiratory failure, aspiration pneumonia , septic in a severely immunocompromised host and he is at extremely high risk for further deterioration and . Discussed current clinical status and plan of care with patient's family at bedside and they voiced understanding and were agreeable. Time spent on critical care excluding procedures 40 minutes Abhi Briggs MD Jan 07, 2018 15:09
[2018-01-07] MEDS ORDERED: METHYLNALTREXONE BROMIDE 12 MG/0.6 ML VIAL SQ ONE (16:00)
--- NOTE | 2018-01-07 16:40 | HHI.IDPN ---
Note Infectious Disease Note ID xcover for . Overnight events reviewed with RN. Patient on ventilator. Opens eyes. Moves extremities. Blood pressure stable. No fever. No rash No diarrhea Sputum culture normal resp david. WBC improving. 72-year-old white male who was diagnosed with lymphoma. The patient was noted to have become ill 2 months ago. He was noted to have cough and he was given 3 rounds of oral antibiotics without improvement of the cough. Subsequent workup revealed mediastinal adenopathy and other areas of adenopathy, and a biopsy of the lesion of the neck came back showing lymphoma. During his stay at [facility], he had no fever. He was given antibiotics. An Infusaport was placed on 12/20 for anticipated chemotherapy. PAST MEDICAL HISTORY: Stage IIIB anaplastic large cell lymphoma, COPD, hypertension, hyperlipidemia, history of CVA without residual deficits, nonsustained V-tach at [facility], neuropathy of the lower extremities, back surgery, Infusaport placement on 12/20/2017. ALLERGIES: HYDROCODONE. Antibiotics Meropenem. Vancomycin. Micafungin. MEDICATIONS: Current Medications Medications (Trade) Dose Ordered Sig/Candace Route Start Time Stop Time Status Last Admin (NS Flush) 2 ml UNSCH PRN IV FLUSH 12/22/17 18:15 (NS Flush) 2 ml BID IV FLUSH 12/22/17 21:00 01/07/18 08:12 (Zofran Inj) 4 mg Q6H PRN IVP 12/22/17 18:15 01/01/18 10:02 (Narcan Inj) 0.4 mg UNSCH PRN IV PUSH 12/22/17 18:15 (Milk Of Magnesia Liq) 30 ml Q12H PRN PO 12/22/17 18:15 (Senokot) 17.2 mg Q12H PRN PO 12/22/17 18:15 (Lactulose Liq) 30 ml DAILY PRN PO 12/22/17 18:15 (Duoneb Neb) 1 ampule Q4HR NEB PRN NEB 12/22/17 20:15 01/01/18 10:08 (Ambien) 5 mg HS PRN PO 12/22/17 20:15 12/26/17 20:30 (Protonix) 40 mg Q12HR PO 12/22/17 21:00 01/06/18 20:35 (Megace Liq) 800 mg DAILY PO 12/23/17 09:00 01/07/18 11:41 (Symbicort 160-4.5 Mcg Inh) 1 puff Q12HR INH 12/22/17 21:00 01/01/18 08:53 (Ecotrin Ec) 81 mg DAILY PO 12/23/17 09:00 01/06/18 08:01 (Lipitor) 80 mg DAILY PO 12/23/17 09:00 01/07/18 08:11 (Theragran) 1 tab DAILY PO 12/23/17 09:00 01/07/18 08:11 (Heparin Central Flush) 500 units UNSCH IV FLUSH 12/22/17 20:30 (NS Flush) 5 ml UNSCH PRN IVF 12/22/17 20:30 (Heparin Central Flush) 250 units UNSCH PRN IV FLUSH 12/22/17 20:30 12/27/17 20:27 (D50w (Vial) Inj) 50 ml UNSCH PRN IV PUSH 12/22/17 20:30 (Glucagon Inj) 1 mg UNSCH PRN OTHER 12/22/17 20:30 (Robitussin Dm 200-20 Mg/10 ml Liq) 10 ml Q4H PRN PO 12/22/17 21:00 12/26/17 18:27 (Mucinex Er) 600 mg BID PO 12/23/17 21:00 01/06/18 20:35 (Tessalon) 100 mg TID PRN PO 12/25/17 12:00 (Zyloprim) 300 mg DAILY PO 12/26/17 09:00 01/07/18 08:30 (Tylenol) 650 mg Q4H PRN PO 12/26/17 14:45 12/26/17 20:32 (Tylenol) 650 mg Q4H PRN PO 12/31/17 16:30 12/31/17 21:19 (Benadryl) 25 mg Q4H PRN PO 12/31/17 16:30 (Tums Chew) 500 mg Q12HR PRN CHEW 12/31/17 16:15 01/01/18 05:27 (Deltasone) 10 mg BID PO 01/01/18 21:00 01/07/18 08:11 (Brethine Inj) 1 mg UNSCH PRN SQ 01/01/18 16:45 (Peridex 0.12% Liq) 15 ml BID@08,20 MT 01/01/18 20:00 01/07/18 08:12 Norepinephrine Bitartrate 250 ml @ 7.5 mls/hr TITRATE PRN IV 01/01/18 17:00 01/02/18 21:09 (Brethine Inj) 1 mg UNSCH PRN SQ 01/01/18 17:00 Propofol 100 ml @ 2.757 mls/ hr TITRATE PRN IV 01/02/18 11:15 01/07/18 10:41 Dextrose 1,000 ml @ 20 mls/hr Q24H IV 01/04/18 07:00 01/07/18 00:02 Meropenem 1000 mg/ Sodium Chloride 100 ml @ 200 mls/hr Q12H IV 01/05/18 16:00 01/07/18 16:15 Fentanyl Citrate 250 ml @ 5 mls/hr CONTINUOUS PRN IV 01/07/18 14:45 01/10/18 14:44 (NovoLOG SUPPLEMENTAL SCALE) 1 Q6HR SQ 01/07/18 18:00 (Colace Liq) 100 mg Q12HR OG-TUBE 01/07/18 21:00 Vital Signs Date Time Temp Pulse Resp B/P (MAP) Pulse Ox O2 Delivery O2 Flow Rate FiO2 01/07/18 12:25 94 40 01/07/18 12:00 68 01/07/18 12:00 40 01/07/18 12:00 97.0 69 18 119/63 (81) 100 01/07/18 10:00 68 01/07/18 08:56 100 40 01/07/18 08:56 100 Ventilator 40 01/07/18 08:00 96.8 61 18 105/55 (72) 100 01/07/18 08:00 40 01/07/18 08:00 65 01/07/18 07:30 97 Mechanical Ventilator 40 01/07/18 06:00 65 01/07/18 04:00 97.4 66 18 103/57 (72) 97 01/07/18 04:00 66 01/07/18 04:00 40 01/07/18 03:40 97 40 01/07/18 02:00 62 01/07/18 00:00 82 01/07/18 00:00 40 01/07/18 00:00 98.1 82 18 111/61 (78) 92 01/06/18 23:47 96 40 01/06/18 22:00 64 01/06/18 20:23 97 40 01/06/18 20:18 60 01/06/18 20:00 40 01/06/18 20:00 97 Mechanical Ventilator 40 01/06/18 20:00 97.9 64 18 100/58 (72) 97 01/06/18 18:00 74 Date Time Temp Pulse Resp B/P (MAP) Pulse Ox O2 Delivery O2 Flow Rate FiO2 01/04/18 14:00 84 01/04/18 12:56 98 40 01/04/18 12:00 40 01/04/18 12:00 88 01/04/18 10:00 89 01/04/18 08:00 98 01/04/18 08:00 98.2 98 18 100/62 (75) 94 01/04/18 08:00 40 01/04/18 07:58 92 40 01/04/18 07:00 95 Mechanical Ventilator 40 01/04/18 06:00 99 01/04/18 04:25 99 40 01/04/18 04:00 98.6 92 18 98/64 (75) 99 01/04/18 04:00 92 01/04/18 04:00 40 01/04/18 03:58 100 50 01/04/18 02:00 96 01/04/18 01:30 94 50 01/04/18 00:08 98 40 01/04/18 00:00 94 01/04/18 00:00 50 01/04/18 00:00 98.6 94 18 127/64 (85) 98 01/03/18 22:00 94 01/03/18 20:19 96 40 01/03/18 20:00 97.5 86 18 112/63 (79) 94 01/03/18 20:00 40 01/03/18 20:00 86 01/03/18 19:00 94 Mechanical Ventilator 50 01/03/18 17:39 99 60 01/03/18 16:00 97.6 75 18 104/57 (73) 99 01/03/18 16:00 40 Laboratory Tests Test 01/03/18 03:55 01/04/18 05:18 White Blood Count 0.0 TH/MM3 0.1 TH/MM3 Red Blood Count 2.67 MIL/MM3 3.31 MIL/MM3 Hemoglobin 7.5 GM/DL 9.3 GM/DL Hematocrit 22.2 % 27.7 % Mean Corpuscular Volume 83.1 FL 83.8 FL Mean Corpuscular Hemoglobin 28.1 PG 28.0 PG Mean Corpuscular Hemoglobin Concent 33.8 % 33.4 % Red Cell Distribution Width 18.7 % 17.9 % Platelet Count 42 TH/MM3 38 TH/MM3 Mean Platelet Volume 9.5 FL 9.2 FL CBC Comment AUTO DIFF AUTO DIFF Differential Total Cells Counted 1 3 Monocytes % 100 % 33 % Neutrophils # (Manual) 0.0 TH/MM3 0.0 TH/MM3 Differential Comment AUTO DIFF CONFIRMED FINAL DIFF MANUAL Platelet Estimate LOW LOW Platelet Morphology Comment ENLARGED NORMAL Lymphocytes % 67 % Microbiology Date/Time Source Procedure Growth Status 01/01/18 17:57 Blood Peripheral Aerobic Blood Culture - Final NO GROWTH IN 5 DAYS Complete 01/01/18 17:57 Blood Peripheral Anaerobic Blood Culture - Final NO GROWTH IN 5 DAYS Complete 12/28/17 12:15 Fluid Pleural Fluid Fungal Smear - Final NO FUNGAL ELEMENTS SEEN. Resulted 12/28/17 12:15 Fluid Pleural Fluid Fungal Culture - Preliminary NO GROWTH IN 1 WEEK Resulted 01/01/18 17:15 Sputum Endotracheal Gram Stain - Final Complete 01/01/18 17:15 Sputum Endotracheal Sputum Culture - Final HEAVY GROWTH NORMAL RESPIRATORY DAVID Complete 01/01/18 17:15 Urine Catheterized Urine Urine Culture - Final NO GROWTH IN 48 HOURS. Complete Laboratory Tests Test 01/05/18 04:35 01/05/18 05:11 01/05/18 10:40 01/06/18 03:40 White Blood Count 0.3 TH/MM3 1.4 TH/MM3 Red Blood Count 3.10 MIL/MM3 2.71 MIL/MM3 Hemoglobin 8.9 GM/DL 7.6 GM/DL Hematocrit 25.9 % 22.6 % Mean Corpuscular Volume 83.6 FL 83.3 FL Mean Corpuscular Hemoglobin 28.6 PG 27.9 PG Mean Corpuscular Hemoglobin Concent 34.2 % 33.4 % Red Cell Distribution Width 18.3 % 18.5 % Platelet Count 46 TH/MM3 56 TH/MM3 Mean Platelet Volume 10.6 FL 11.0 FL CBC Comment AUTO DIFF AUTO DIFF Differential Total Cells Counted 20 100 Neutrophils % (Manual) 15 % 77 % Band Neutrophils % 40 % 15 % Lymphocytes % 30 % 8 % Monocytes % 5 % Neutrophils # (Manual) 0.2 TH/MM3 1.3 TH/MM3 Metamyelocytes 10 % Nucleated Red Blood Cells 5 /100 WBC Differential Comment FINAL DIFF MANUAL FINAL DIFF MANUAL Platelet Estimate LOW LOW Platelet Morphology Comment ENLARGED ENLARGED Ovalocytes 1+ Blood Urea Nitrogen 48 MG/DL 51 MG/DL Creatinine 2.15 MG/DL 2.30 MG/DL Random Glucose 147 MG/DL 109 MG/DL Total Protein 4.2 GM/DL 3.9 GM/DL Albumin 1.0 GM/DL 1.4 GM/DL Calcium Level 8.2 MG/DL 7.6 MG/DL Phosphorus Level 3.0 MG/DL 2.4 MG/DL Magnesium Level 2.4 MG/DL 2.2 MG/DL Alkaline Phosphatase 55 U/L 48 U/L Aspartate Amino Transf (AST/SGOT) 16 U/L 16 U/L Alanine Aminotransferase (ALT/SGPT) 24 U/L 19 U/L Total Bilirubin 0.3 MG/DL 0.3 MG/DL Sodium Level 151 MEQ/L 150 MEQ/L Potassium Level 3.7 MEQ/L 3.3 MEQ/L Chloride Level 117 MEQ/L 116 MEQ/L Carbon Dioxide Level 25.8 MEQ/L 26.5 MEQ/L Anion Gap 8 MEQ/L 8 MEQ/L Estimat Glomerular Filtration Rate 30 ML/MIN 28 ML/MIN Random Vancomycin Level 35.9 COMMENT Blood Gas Puncture Site RT BRACHIAL Blood Gas Patient Temperature 98.6 Blood Gas HCO3 25 mmol/L Blood Gas Base Excess 1.1 mmol/L Blood Gas Oxygen Saturation 94 % Arterial Blood pH 7.44 Arterial Blood Partial Pressure CO2 37 mmHg Arterial Blood Partial Pressure O2 74 mmHg Arterial Blood Oxygen Content 12.1 Vol % Arterial Blood Carboxyhemoglobin 1.2 % Arterial Blood Methemoglobin 0.9 % Blood Gas Hemoglobin 9.1 G/DL Oxygen Delivery Device VENTILATOR Blood Gas Ventilator Setting COMMENT Urine Color YELLOW Urine Turbidity CLOUDY Urine pH 5.5 Urine Specific [place] 1.020 Urine Protein 100 mg/dL Urine Glucose (UA) NEG mg/dL Urine Ketones NEG mg/dL Urine Occult Blood MOD Urine Nitrite NEG Urine Bilirubin NEG Urine Urobilinogen LESS THAN 2.0 MG/DL Urine Leukocyte Esterase NEG Urine RBC 2 /hpf Urine WBC 3 /hpf Urine Squamous Epithelial Cells 1 /hpf Urine Bacteria FEW /hpf Urine Random Creatinine 81.8 MG/DL Urine Random Sodium 26 MEQ/L Dohle Bodies PRESENT Acanthocytes OCC Test 01/06/18 06:34 01/07/18 04:25 01/07/18 04:53 Blood Gas Puncture Site RT RADIAL RT RADIAL Blood Gas Patient Temperature 98.6 98.6 Blood Gas HCO3 24 mmol/L 23 mmol/L Blood Gas Base Excess 0.9 mmol/L -0.6 mmol/L Blood Gas Oxygen Saturation 95 % 95 % Arterial Blood pH 7.47 7.46 Arterial Blood Partial Pressure CO2 34 mmHg 33 mmHg Arterial Blood Partial Pressure O2 85 mmHg 81 mmHg Arterial Blood Oxygen Content 10.2 Vol % 10.2 Vol % Arterial Blood Carboxyhemoglobin 1.1 % 1.1 % Arterial Blood Methemoglobin 1.0 % 1.1 % Blood Gas Hemoglobin 7.5 G/DL 7.6 G/DL Oxygen Delivery Device VENTILATOR VENTILATOR Blood Gas Ventilator Setting SEE COMMENT SEE COMMENT Blood Gas Inspired Oxygen 40 % 40 % White Blood Count 4.3 TH/MM3 Red Blood Count 2.68 MIL/MM3 Hemoglobin 7.5 GM/DL Hematocrit 22.3 % Mean Corpuscular Volume 83.3 FL Mean Corpuscular Hemoglobin 27.9 PG Mean Corpuscular Hemoglobin Concent 33.5 % Red Cell Distribution Width 18.4 % Platelet Count 70 TH/MM3 Mean Platelet Volume 10.3 FL CBC Comment AUTO DIFF Differential Total Cells Counted 100 Neutrophils % (Manual) 77 % Band Neutrophils % 13 % Lymphocytes % 5 % Monocytes % 5 % Neutrophils # (Manual) 3.9 TH/MM3 Differential Comment FINAL DIFF MANUAL Toxic Granulation 1+ Platelet Estimate LOW Platelet Morphology Comment ENLARGED Ovalocytes 1+ Blood Urea Nitrogen 53 MG/DL Creatinine 2.55 MG/DL Random Glucose 121 MG/DL Total Protein 4.4 GM/DL Albumin 2.2 GM/DL Calcium Level 7.7 MG/DL Phosphorus Level 3.0 MG/DL Magnesium Level 2.2 MG/DL Alkaline Phosphatase 55 U/L Aspartate Amino Transf (AST/SGOT) 23 U/L Alanine Aminotransferase (ALT/SGPT) 17 U/L Total Bilirubin 0.5 MG/DL Sodium Level 146 MEQ/L Potassium Level 3.6 MEQ/L Chloride Level 112 MEQ/L Carbon Dioxide Level 22.6 MEQ/L Anion Gap 11 MEQ/L Estimat Glomerular Filtration Rate 25 ML/MIN Random Vancomycin Level 30.3 COMMENT Last Impressions Chest X-Ray 01/07/18 0600 Signed Impressions: Service Date/Time: Sunday, January 07, 2018 05:05 - CONCLUSION: Worsening bilateral airspace disease. Kaveh Perales MD Renal Ultrasound 01/05/18 0000 Signed Impressions: Service Date/Time: Friday, January 05, 2018 08:00 - CONCLUSION: Echogenic kidneys suggesting medical renal disease. Some ascites. Bilateral pleural effusions. Lee Mijares MD Head CT 01/05/18 0000 Signed Impressions: Service Date/Time: Friday, January 05, 2018 11:41 - CONCLUSION: 1. No acute abnormality is seen. 2. Old lacunar infarct at the left basal ganglia. 3. Fluid in the mastoid air cells on the right. Andres Valero MD Small Bowel X-Ray 01/03/18 0000 Signed Impressions: Service Date/Time: December 14:27 - CONCLUSION: 1. No leakage identified on injection through gastrostomy tube. No small bowel obstruction or significant dilatation. Elbert Carrasquillo MD Abdomen/Pelvis CT 01/02/18 0000 Signed Impressions: Service Date/Time: Tuesday, January 02, 2018 21:38 - CONCLUSION: 1. Free intraperitoneal air of unknown etiology. On the supine view most of the free air is around the gastrostomy tube and tip of the nasogastric tube as discussed above. 2. Mild to moderate ascites. Moderate anasarca. 3. Moderate bilateral effusions with basilar atelectasis. 4. Nonobstructing right renal calculus. Hay catheter in bladder. Elbert Carrasquillo MD Chest CT 12/30/17 0000 Signed Impressions: Service Date/Time: Saturday, December 30, 2017 21:13 - CONCLUSION: 1. Free intraperitoneal air in the upper abdomen of uncertain etiology. There is a gastrostomy present. 2. Moderate bilateral pleural effusions with compressive atelectasis. Patchy air space consolidation in the right upper lobe. 3. Moderate anasarca and ascites. 4. Findings called to the floor at the time of dictation. Elbert Carrasquillo MD Chest Ultrasound 12/27/17 0000 Signed Impressions: Service Date/Time: December 21:39 - CONCLUSION: Large left pleural effusion and would be amenable to thoracentesis. Frandy was made on the overlying skin. Andres Parekh MD Bone Biopsy CT 12/25/17 1142 Signed Impressions: Service Date/Time: Monday, December 25, 2017 12:32 - CONCLUSION: 1. Uncomplicated CT guided bone marrow aspirate. 2. Uncomplicated CT guided bone marrow biopsy. Lee Mijares MD CT Angiography 12/25/17 0000 Signed Impressions: Service Date/Time: Monday, December 25, 2017 09:26 - CONCLUSION: 1. No CT evidence for pulmonary artery embolism. 2. Moderate to large bilateral pleural effusions with associated compressive atelectasis at the lung bases. 3. 8mm nodule in the right middle lobe. Followup CT examination may be performed at 6 months to document stability if this has not been evaluated previously. 4. Very mildly prominent mediastinal and hilar nodes and partially imaged upper abdominal lymphadenopathy in this patient with history of lymphoma. Miguel Ashton MD PHYSICAL EXAMINATION: GENERAL: On the ventilator. Sedated. HEENT: No icterus. No conjunctival erythema. NECK: Supple. No adenopathy. No swelling. LUNGS: Decreased breath sounds bilateral. HEART: Regular S1 and S2. No murmurs, rubs or gallops. ABDOMEN: Markedly diminished bowel sounds, soft. EXTREMITIES: No clubbing or cyanosis, 1+ edema of the extremities. SKIN: No rash. NEUROLOGIC: Opens eyes spontaneously, moves all 4 extremities. PSYCHIATRIC: Unable to assess. IV line sites with no e.o infection. IMPRESSION: 1. Pneumonia. Bibasilar lung infiltrates. Preliminary cultures showing gram- negative bacteria. ID pending. Aspiration with decline in respiratory status. 2. Acute respiratory failure. Intubated on the ventilator. 3. Bilateral pleural effusions. Post thoracentesis. 4. Lymphoma. Treated with chemotherapy. 5. Neutropenia postchemotherapy. White blood cell count remains significantly depressed. Patient post chemotherapy. Patient now has pancytopenia. 5. Decreased nutrition in patient with anorexia and now post percutaneous endoscopic gastrostomy placement. Tube feeds placed on hold because of concern for aspiration Patient still very critically ill. RECOMMENDATIONS: 1. Continue meropenem (will deescalate in am if clinically stable) 2. DC IV vancomycin. 3. DC IV micafungin. Worsening CXR ? fluid overload related. Follow cultures Follow clinically. dw patient dw RN. Mandie Briggs MD Jan 07, 2018 16:40
--- NOTE | 2018-01-07 16:48 | PD.WCN.NOT ---
Wound Consult Additional Information: Patient not seen. Spoke with ANDREAS PERSON, Patient is known to wound care saw patient on 12/31 and 12/26 for buttock area. Please continue with recommendations and vocera wound care nurse for wound deterioration. Linh Vega [facility] Jan 07, 2018 16:48
--- NOTE | 2018-01-07 18:30 | HHI.PR ---
Subjective Remarks Was intubated on 01/01 for aspiration and respiratory failure. Now on FIO2 40 % Xray chest shows Bilat infiltrates. On antibiotics. Objective Vital Signs Date Time Temp Pulse Resp B/P (MAP) Pulse Ox O2 Delivery O2 Flow Rate FiO2 01/07/18 18:01 74 01/07/18 16:00 97.4 73 18 127/91 (103) 94 01/07/18 16:00 40 01/07/18 12:25 94 40 01/07/18 12:00 68 01/07/18 12:00 40 01/07/18 12:00 97.0 69 18 119/63 (81) 100 01/07/18 10:00 68 01/07/18 08:56 100 40 01/07/18 08:56 100 Ventilator 40 01/07/18 08:00 96.8 61 18 105/55 (72) 100 01/07/18 08:00 40 01/07/18 08:00 65 01/07/18 07:30 97 Mechanical Ventilator 40 01/07/18 06:00 65 01/07/18 04:00 97.4 66 18 103/57 (72) 97 01/07/18 04:00 66 01/07/18 04:00 40 01/07/18 03:40 97 40 01/07/18 02:00 62 01/07/18 00:00 82 01/07/18 00:00 40 01/07/18 00:00 98.1 82 18 111/61 (78) 92 01/06/18 23:47 96 40 01/06/18 22:00 64 01/06/18 20:23 97 40 01/06/18 20:18 60 01/06/18 20:00 40 01/06/18 20:00 97 Mechanical Ventilator 40 01/06/18 20:00 97.9 64 18 100/58 (72) 97 I/O 01/06/18 01/06/18 01/06/18 01/07/18 01/07/18 01/07/18 07:00 15:00 23:00 07:00 15:00 23:00 Intake Total 2476 ml 400 ml 157 ml 2597 ml 500 ml 1618 ml Output Total 250 ml 750 ml 850 ml 1150.0 ml Balance 2226 ml 400 ml -593 ml 1747 ml 500 ml 468.0 ml IV Total 2153 ml 400 ml 1879 ml 500 ml 1309 ml Tube Feeding 203 ml 157 ml 368 ml 189 ml Other 120 ml 350 ml 120 ml Output Urine Total 250 ml 700 ml 850 ml 950 ml Stool Total 50 ml Tube Feeding Residual Discard 0 ml 200.0 ml # Bowel Movements 1 0 1 Result Diagram: 01/07/185 01/07/18 0425 Procedures PEG tube placement. Bone Marrow Biopsy 12/25/17 Objective Remarks General appearance: This elderly white male is averagely built, on vent support. HEENT: Head normocephalic. Pupils reactive. Sclerae were clear Ears: No inflammation. Throat was clear. Neck: No bruits or thyroid enlargement or lymphadenopathy. Chest: Distant breath sounds with expiratory wheezes in the upper chest and a few crackles at both lung bases. Cardiovascular: The heart sounds are regular, S1 and S2. No murmur. No S3. Abdomen: Is soft, benign. No masses. Extremities: 1 + edema. Pt is sedated. Assessment and Plan Assessment and Plan IMPRESSION: 1. Bibasilar pleural effusions with atelectasis. 2. History of hypertension. 3. Hyperlipidemia. 4. COPD, emphysema. 5. History of Anaplastic NHL . 6. Respiratory Failure Plan : 1. Cont Antibiotics per ID 2 Wean FIo2 to keep sat >92 3. Solumedrol 40 mg BID 4. Nebs qid , duoneb. 5.CPAP trial in am if stable 6. CBC,BMP, CXR in am 7. Wean sedation 8. Mucomyst 10 % , 2 CC q8h Katiuska Blevins MD Jan 07, 2018 18:30
[2018-01-07] MEDS: DOCUSATE SODIUM 100 MG/10 ML UDC OG-TUBE SCH (21:35)
[2018-01-08] VITALS (19 sets, daily range): BP systolic 119–156; BP diastolic 65–77; PULSE 59–81; RESP 18–21; TEMP 97.5–98.2; O2SAT 97–100
[2018-01-08] MEDS: PROPOFOL 1000 MG/100 ML INJ 100 ML IV PRN ×5 (01:55→21:40)
[2018-01-08] MEDS: MEROPENEM INJ 1,000 MG in SODIUM CHLORIDE 0.9% INJ 100 ML IV SCH ×2 (03:41→17:22)
[2018-01-08 04:37] LABS: HEMATOCRIT 24.8 % (39.0-51.0); HEMOGLOBIN 8.4 GM/DL (13.0-17.0); MEAN CELL VOLUME 82.8 FL (80.0-100.0); MEAN CORPUSCULAR HEMOGLOBIN 28.1 PG (27.0-34.0); MEAN CORPUSCULAR HGB CONC 33.9 % (32.0-36.0); MEAN PLATELET VOLUME 9.5 FL (7.0-11.0); PLATELET COUNT 121 TH/MM3 (150-450); RED CELL DISTRIBUTION WIDTH 18.8 % (11.6-17.2); WHITE BLOOD COUNT 9.7 TH/MM3 (4.0-11.0)
[2018-01-08 05:04] LABS: ALBUMIN 2.2 GM/DL (3.4-5.0); AST (GOT) 28 U/L (15-37); BLOOD UREA NITROGEN 54 MG/DL (7-18); CALCIUM 7.7 MG/DL (8.5-10.1); CHLORIDE 112 MEQ/L (98-107); CREATININE 2.66 MG/DL (0.60-1.30); GLOMERULAR FILTRATION RATE 24 ML/MIN (>89); GLUCOSE,RANDOM 117 MG/DL (74-106); MAGNESIUM 2.3 MG/DL (1.5-2.5); SODIUM (NA) 144 MEQ/L (136-145)
[2018-01-08 05:05] LABS: ALT (GPT) 18 U/L (12-78); PHOSPHORUS 3.4 MG/DL (2.5-4.9)
[2018-01-08 05:08] LABS: ALKALINE PHOSPHATASE 80 U/L (45-117); TOTAL BILIRUBIN ADULT 0.5 MG/DL (0.2-1.0); TOTAL PROTEIN 4.7 GM/DL (6.4-8.2)
[2018-01-08] MEDS: INSULIN ASPART SUPPLEMENTAL SCALE SQ SCH ×5 (05:33→23:17)
[2018-01-08 06:58] LABS: BANDS 30 % (0-6); LYMPHOCYTES 2 % (9-44); NEUTROPHIL # MANUAL DIFF 9.5 TH/MM3 (1.8-7.7); POLYS (SEG NEUTROPHILS) 68 % (16-70)
[2018-01-08] MEDS: predniSONE 10 MG TAB PO SCH ×2 (08:31→21:42)
[2018-01-08] MEDS: SODIUM CHLORIDE 0.9% FLUSH 10 ML FLUSH IV FLUSH SCH ×2 (08:31→21:41)
[2018-01-08] MEDS: DOCUSATE SODIUM 100 MG/10 ML UDC OG-TUBE SCH ×2 (08:31→21:41)
[2018-01-08] MEDS: ASPIRIN EC 81 MG TABEC PO SCH (08:31)
[2018-01-08] MEDS: MULTIVITAMIN TAB PO SCH (08:32)
[2018-01-08] MEDS: ALLOPURINOL 300 MG TAB PO SCH (08:32)
[2018-01-08] MEDS: ATORVASTATIN 80 MG TAB PO SCH (08:32)
[2018-01-08] MEDS: MEGESTROL ACETATE SUSP 400 MG/10 ML CUP PO SCH (08:32)
[2018-01-08] MEDS: guaiFENesin E.R. 600 MG TAB PO SCH ×2 (08:32→21:00)
[2018-01-08] MEDS: PANTOPRAZOLE SOD 40 MG DELAYED RELEASE TAB PO SCH ×2 (08:32→21:00)
[2018-01-08] MEDS: CHLORHEXIDINE 0.12% (ORAL KIT) 15 ML CUP MT SCH ×2 (08:33→21:41)
[2018-01-08] MEDS ORDERED: FUROSEMIDE 20 MG/2 ML VIAL IV PUSH ONE ×2 (09:00→14:45)
--- NOTE | 2018-01-08 09:00 | HHI.CCPN ---
Subjective Remarks/Hospital Course 01/01: 72-year-old gentleman with history of hypertension, hyperlipidemia and previous CVA, COPD, now newly diagnosed with anaplastic large cell non-Hodgkin' s lymphoma now transferred from [facility] on 12/23 for further treatment. On 12/25 patient received chemotherapy -CHOP regimen. Hospitalization further significant for PEG placement due to malnutrition and lack of appetite and thoracentesis for pleural effusion. Patient was being followed by pulmonary, cardiology and hematology services. Over the night patient had increased O2 requirements with high tube feed residual and concern for aspiration. A rapid response was called earlier this afternoon for worsening hypoxia despite NRM. Patient was emergently intubated and upon intubation he was found to have significant amount of tube feeds in the airway. An NG tube was placed on suction with 750 cc suctioned from the stomach. Patient was started on midazolam and fentanyl drips and phenylephrine for BP support. Patient was seen immediately on ICU arrival, 100% O2 with SPO2 100%. Patient requires 20 mics per minute of phenylephrine infusion. He is intubated and sedated, unresponsive. 01/02: No events over the night. Patient remains critically ill. He is currently sedated and intubated. He remains on phenylephrine at 80 mics per minute. FiO2 down to 0.6. T-max 98.6, I/O 1550/400. 01/03: Patient did well over the night. Norepinephrine weaned off. FiO2 currently at 0.5. Patient remains on a PEEP of 10. Sedation accomplished with propofol and fentanyl. Tmax 98.4. 01/04: Multiple episodes of diarrhea overnight. No C. difficile sent. Urine output decreased, 300 mL's over last 12 hours. Patient does not require any pressors, sedation is maintained with propofol at 30 and fentanyl at 150. During sedation vacation patient moves all extremities, agitated, but does not follow commands. Currently he is sedated and intubated. Morning chest x-ray reviewed, slight improvement in bibasilar infiltrates. 01/05: No events over the night. T-max of 98.6. Urine output 550 mL's over the last 24 hours. Ventilator on 0.4 FiO2. Sedation was stopped this morning, patient agitated moving all extremities but not following commands. Morning chest x-ray reviewed, no significant change compared to yesterday's, ET tube approximately 7 cm above clem. 01/06: Patient remains afebrile, on no pressors. Oxygenation down to 0.4 FiO2, but PEEP remains at 10. Trickle feeds started yesterday, still having residuals. Patient remains on low-dose propofol and fentanyl for sedation. Morning chest x-ray reviewed, still with bibasilar opacities, unchanged. 01/07: Remains sedated, orally intubated on mechanical ventilation. Fentanyl at 150 mics per minute decreased to 50 mics per minute. Abdomen remains distended. Tolerating tube feeds at 20 cc/h with residual 60 cc. 01/08: Sedated, orally intubated on mechanical ventilation. Had large amount of BM last night following Relistor. On tube feeds at 20 cc per hour. Objective Vital Signs Date Time Temp Pulse Resp B/P (MAP) Pulse Ox O2 Delivery O2 Flow Rate FiO2 01/08/18 06:00 64 01/08/18 04:18 98 40 01/08/18 04:00 97.5 18 150/77 (101) 01/07/18 20:00 Mechanical Ventilator Intake and Output 01/08/18 01/08/18 01/08/18 07:59 15:59 23:59 Intake Total 1107 ml Output Total 950 ml Balance 157 ml Result Diagram: 01/08/18 0425 01/08/18 0425 Other Results Laboratory Tests Test 01/08/18 04:45 Blood Gas Puncture Site RT RADIAL Blood Gas Patient Temperature 98.6 Blood Gas HCO3 22 mmol/L (22-26) Blood Gas Base Excess -1.5 mmol/L (-2-2) Blood Gas Oxygen Saturation 94 % (90-100) Arterial Blood pH 7.43 (7.380-7.420) Arterial Blood Partial Pressure CO2 34 mmHg (38-42) Arterial Blood Partial Pressure O2 76 mmHg (61-120) Arterial Blood Oxygen Content 11.5 Vol % (12.0-20.0) Arterial Blood Carboxyhemoglobin 1.3 % (0-4) Arterial Blood Methemoglobin 1.0 % (0-2) Blood Gas Hemoglobin 8.7 G/DL (12.0-16.0) Oxygen Delivery Device VENTILATOR Blood Gas Ventilator Setting PRVC/AC Blood Gas Inspired Oxygen 40 % Imaging Last 24 hours Impressions Chest X-Ray 01/04/18 0600 Signed Impressions: Service Date/Time: Thursday, January 04, 2018 03:22 - CONCLUSION: 1. Interval improvement in bibasilar opacity. 2. The patient remains intubated. Bijan Loredo MD Last Impressions Chest X-Ray 01/03/18 0600 Signed Impressions: Service Date/Time: December 02:08 - CONCLUSION: Increasing left lower lobe consolidation and increasing right pleural effusion. Siva Cooley MD Abdomen/Pelvis CT 01/02/18 0000 Signed Impressions: Service Date/Time: Tuesday, January 02, 2018 21:38 - CONCLUSION: 1. Free intraperitoneal air of unknown etiology. On the supine view most of the free air is around the gastrostomy tube and tip of the nasogastric tube as discussed above. 2. Mild to moderate ascites. Moderate anasarca. 3. Moderate bilateral effusions with basilar atelectasis. 4. Nonobstructing right renal calculus. Hay catheter in bladder. Elbert Carrasquillo MD Chest CT 12/30/17 0000 Signed Impressions: Service Date/Time: Saturday, December 30, 2017 21:13 - CONCLUSION: 1. Free intraperitoneal air in the upper abdomen of uncertain etiology. There is a gastrostomy present. 2. Moderate bilateral pleural effusions with compressive atelectasis. Patchy air space consolidation in the right upper lobe. 3. Moderate anasarca and ascites. 4. Findings called to the floor at the time of dictation. Elbert Carrasquillo MD Chest Ultrasound 12/27/17 0000 Signed Impressions: Service Date/Time: December 21:39 - CONCLUSION: Large left pleural effusion and would be amenable to thoracentesis. Frandy was made on the overlying skin. Andres Parekh MD Bone Biopsy CT 12/25/17 1142 Signed Impressions: Service Date/Time: Monday, December 25, 2017 12:32 - CONCLUSION: 1. Uncomplicated CT guided bone marrow aspirate. 2. Uncomplicated CT guided bone marrow biopsy. Lee Mijares MD CT Angiography 12/25/17 0000 Signed Impressions: Service Date/Time: Monday, December 25, 2017 09:26 - CONCLUSION: 1. No CT evidence for pulmonary artery embolism. 2. Moderate to large bilateral pleural effusions with associated compressive atelectasis at the lung bases. 3. 8mm nodule in the right middle lobe. Followup CT examination may be performed at 6 months to document stability if this has not been evaluated previously. 4. Very mildly prominent mediastinal and hilar nodes and partially imaged upper abdominal lymphadenopathy in this patient with history of lymphoma. Miguel Ashton MD Objective Remarks General - elderly gentleman intubated and sedated, ill-appearing, poorly responsive HEENT - pupils are equal, reactive, sclerae are anicteric, neck is supple, no rigidity, neck veins distended, + NGT, + LIJ CVC (01/01) -site remains clean, + ETT CV - irregular heart sounds, no murmurs, rubs or gallops Chest -still with scattered coarse breath sounds bilateral, no wheezes, good air entry, [id number] right chest -site remains clean Abdomen - soft, obese, appears non-tender, BS present, no hepatomegaly, no splenomegaly, + PEG Extremities - 3+ edema, + peripheral pulses, warm, no cyanosis Neuro - intubated, pupils equal and reactive, grimaces to pain but does not follow commands A/P Assessment and Plan 1. Acute hypoxic and hypercapnic respiratory failure - slow improvement in O2 requirements, currently down to 0.4 FiO2 2. Likely aspiration pneumonia 3. Circulatory shock, likely septic vs med induced -weaned off vasopressors 4. Neutropenia with ANC count less than 500 - slowly trending up 5. NHL, received CHOP therapy on 12/25 6. Sacral decubitus 7. CYNDI -likely ATN due to hypotension 8. Hypokalemia -replete 9. Hypernatremia - likely iatrogenic, improving 10. Free air in the abdomen. On exam abdomen is soft and nontender 11. Atrial fibrillation -rate controlled 12. Pancytopenia -slowly improving 1. Continue PRVC at current vent settings. Decrease PEEP from 8 to 6 2. Vent bundle and bronchodilators 3. Continue meropenem, vancomycin and micafungin per ID 4. Sedation vacation daily. Decrease fentanyl 250 mics per hour due to ileus. Continue propofol 5. Not ready for weaning yet as his sats dropped on decreasing PEEP yesterday. 6. Strict intake output, monitor and replete electrolites, follow BUN/ creatinine. 7. Appreciate nephrology consult. KVO IV fluids and discontinue albumin IV on 01/07. Lasix 20 mg IV 1 dose on 01/[address] head with no acute findings 01/05 9. Neupogen and PRBC transfusion per onc 10. GI and DVT prophylaxis 11. Advance tube feeds to goal 40cc/hr Jevity 1.5 12. Replete potassium Patient is critically ill with hypoxic respiratory failure, aspiration pneumonia , septic in a severely immunocompromised host and he is at extremely high risk for further deterioration and . Discussed current clinical status and plan of care with patient's at bedside and they voiced understanding and were agreeable. Time spent on critical care excluding procedures 35 minutes Abhi Briggs MD Jan 08, 2018 09:00
--- NOTE | 2018-01-08 10:29 | HHI.GIFU ---
Subjective Remarks Patient is currently managed on the ventilator Tube feeding is off and any residual has been removed from his stomach Plan is for GJ tubes this afternoon in room, supportive care Loose stools 2 post relistor (Suyapa Jim) Objective Vitals I&O Vital Signs Date Time Temp Pulse Resp B/P (MAP) Pulse Ox O2 Delivery O2 Flow Rate FiO2 01/08/18 09:17 100 Ventilator 40 01/08/18 09:10 100 40 01/08/18 06:00 64 01/08/18 04:18 98 40 01/08/18 04:00 97.5 69 18 150/77 (101) 98 01/08/18 04:00 69 01/08/18 04:00 40 01/08/18 02:00 79 01/08/18 01:34 99 40 01/08/18 00:00 98.2 81 18 119/65 (83) 99 01/08/18 00:00 81 01/08/18 00:00 40 01/07/18 22:00 69 01/07/18 20:16 99 40 01/07/18 20:00 81 01/07/18 20:00 40 01/07/18 20:00 98 Mechanical Ventilator 40 01/07/18 20:00 97.4 87 18 126/96 (106) 98 01/07/18 18:01 74 01/07/18 16:00 97.4 73 18 127/91 (103) 94 01/07/18 16:00 40 01/07/18 12:25 94 40 01/07/18 12:00 68 01/07/18 12:00 40 01/07/18 12:00 97.0 69 18 119/63 (81) 100 I/O 01/07/18 01/07/18 01/07/18 01/08/18 01/08/18 01/08/18 07:00 15:00 23:00 07:00 15:00 23:00 Intake Total 2597 ml 500 ml 1618 ml 1107 ml Output Total 850 ml 1150.0 ml 950 ml Balance 1747 ml 500 ml 468.0 ml 157 ml IV Total 1879 ml 500 ml 1309 ml 666 ml Tube Feeding 368 ml 189 ml 141 ml Other 350 ml 120 ml 300 ml Output Urine Total 850 ml 950 ml 950 ml Tube Feeding Residual Discard 200.0 ml # Bowel Movements 0 1 1 Laboratory Laboratory Tests Test 01/08/18 04:25 01/08/18 04:45 White Blood Count 9.7 Red Blood Count 3.00 Hemoglobin 8.4 Hematocrit 24.8 Mean Corpuscular Volume 82.8 Mean Corpuscular Hemoglobin 28.1 Mean Corpuscular Hemoglobin Concent 33.9 Red Cell Distribution Width 18.8 Platelet Count 121 Mean Platelet Volume 9.5 CBC Comment AUTO DIFF Differential Total Cells Counted 100 Neutrophils % (Manual) 68 Band Neutrophils % 30 Lymphocytes % 2 Neutrophils # (Manual) 9.5 Differential Comment FINAL DIFF MANUAL Platelet Estimate LOW Platelet Morphology Comment NORMAL Red Cell Morphology Comment Blood Urea Nitrogen 54 Creatinine 2.66 Random Glucose 117 Total Protein 4.7 Albumin 2.2 Calcium Level 7.7 Phosphorus Level 3.4 Magnesium Level 2.3 Alkaline Phosphatase 80 Aspartate Amino Transf (AST/SGOT) 28 Alanine Aminotransferase (ALT/SGPT) 18 Total Bilirubin 0.5 Sodium Level 144 Potassium Level 4.0 Chloride Level 112 Carbon Dioxide Level 25.0 Anion Gap 7 Estimat Glomerular Filtration Rate 24 Blood Gas Puncture Site RT RADIAL Blood Gas Patient Temperature 98.6 Blood Gas HCO3 22 Blood Gas Base Excess -1.5 Blood Gas Oxygen Saturation 94 Arterial Blood pH 7.43 Arterial Blood Partial Pressure CO2 34 Arterial Blood Partial Pressure O2 76 Arterial Blood Oxygen Content 11.5 Arterial Blood Carboxyhemoglobin 1.3 Arterial Blood Methemoglobin 1.0 Blood Gas Hemoglobin 8.7 Oxygen Delivery Device VENTILATOR Blood Gas Ventilator Setting PRVC/AC Blood Gas Inspired Oxygen 40 Date/Time Source Procedure Growth Status 01/01/18 17:57 Blood Peripheral Aerobic Blood Culture - Final NO GROWTH IN 5 DAYS Complete 01/01/18 17:57 Blood Peripheral Anaerobic Blood Culture - Final NO GROWTH IN 5 DAYS Complete 12/28/17 12:15 Fluid Pleural Fluid Fungal Smear - Final NO FUNGAL ELEMENTS SEEN. Resulted 12/28/17 12:15 Fluid Pleural Fluid Fungal Culture - Preliminary NO GROWTH IN 1 WEEK Resulted 01/01/18 17:15 Sputum Endotracheal Gram Stain - Final Complete 01/01/18 17:15 Sputum Endotracheal Sputum Culture - Final HEAVY GROWTH NORMAL RESPIRATORY LISA Complete 01/01/18 17:15 Urine Catheterized Urine Urine Culture - Final NO GROWTH IN 48 HOURS. Complete Imaging Last Impressions Chest X-Ray 01/07/18 0600 Signed Impressions: Service Date/Time: [place], January 07, 2018 05:05 - CONCLUSION: Worsening bilateral airspace disease. Kaveh Perales MD Renal Ultrasound 01/05/18 0000 Signed Impressions: Service Date/Time: Friday, January 05, 2018 08:00 - CONCLUSION: Echogenic kidneys suggesting medical renal disease. Some ascites. Bilateral pleural effusions. Lee Mijares MD Head CT 01/05/18 0000 Signed Impressions: Service Date/Time: Friday, January 05, 2018 11:41 - CONCLUSION: 1. No acute abnormality is seen. 2. Old lacunar infarct at the left basal ganglia. 3. Fluid in the mastoid air cells on the right. Andres Valero MD Small Bowel X-Ray 01/03/18 0000 Signed Impressions: Service Date/Time: December 14:27 - CONCLUSION: 1. No leakage identified on injection through gastrostomy tube. No small bowel obstruction or significant dilatation. Elbert Carrasquillo MD Abdomen/Pelvis CT 01/02/18 0000 Signed Impressions: Service Date/Time: Tuesday, January 02, 2018 21:38 - CONCLUSION: 1. Free intraperitoneal air of unknown etiology. On the supine view most of the free air is around the gastrostomy tube and tip of the nasogastric tube as discussed above. 2. Mild to moderate ascites. Moderate anasarca. 3. Moderate bilateral effusions with basilar atelectasis. 4. Nonobstructing right renal calculus. Hay catheter in bladder. Elbert Carrasquillo MD Chest CT 12/30/17 0000 Signed Impressions: Service Date/Time: Saturday, December 30, 2017 21:13 - CONCLUSION: 1. Free intraperitoneal air in the upper abdomen of uncertain etiology. There is a gastrostomy present. 2. Moderate bilateral pleural effusions with compressive atelectasis. Patchy air space consolidation in the right upper lobe. 3. Moderate anasarca and ascites. 4. Findings called to the floor at the time of dictation. Elbert Carrasquillo MD Chest Ultrasound 12/27/17 0000 Signed Impressions: Service Date/Time: December 21:39 - CONCLUSION: Large left pleural effusion and would be amenable to thoracentesis. Frandy was made on the overlying skin. Andres Parekh MD Bone Biopsy CT 12/25/17 1142 Signed Impressions: Service Date/Time: Monday, December 25, 2017 12:32 - CONCLUSION: 1. Uncomplicated CT guided bone marrow aspirate. 2. Uncomplicated CT guided bone marrow biopsy. Lee Mijares MD CT Angiography 12/25/17 0000 Signed Impressions: Service Date/Time: Monday, December 25, 2017 09:26 - CONCLUSION: 1. No CT evidence for pulmonary artery embolism. 2. Moderate to large bilateral pleural effusions with associated compressive atelectasis at the lung bases. 3. 8mm nodule in the right middle lobe. Followup CT examination may be performed at 6 months to document stability if this has not been evaluated previously. 4. Very mildly prominent mediastinal and hilar nodes and partially imaged upper abdominal lymphadenopathy in this patient with history of lymphoma. Miguel Ashton MD Physical Exam HEENT: Normocephalic; atraumatic; no jaundice. Obese CHEST: Ventilator management diminished breath sounds at bases, mild rhonchi mechanically ventilated via ETT CARDIAC: RRR ABDOMEN: Large,taut, Soft, minimal distention, bowel sounds active. PEG tube SKIN: Normal; no rash; no jaundice. Generalized edema, upper and lower extremities [employer]: Sedated, unresponsive (Suyapa Jim) Assessment and Plan Plan Initial consult Weight loss with new dx of naplastic large cell lymphoma- Tx from [facility] for oncology treatment Pancytopenia- Pt on Neupogen, Neutropenic precautions, antifungal and abx per ID (01/03) Reconsult for PEG tube eval EGD with PEG placement (12/24) --> Ulcer in the first portion of the duodenum. Otherwise normal Pt was on Tube feeding Jevity @ 60 mL/hr- stopped because pt was not tolerating. He became hypoxic, O2 not sustained despite NRB so was intubated, during intubation a significant amount of TF was noted to be aspirated. TF placed on hold. Unclear why pt has an OG tube, most likely placed during intubation. Abnormal CT findings --> Free intraperitoneal air of unknown etiology. On the supine view most of the free air is around the G-tbue and tip of OG tube. Mild to moderate ascites. Moderate anasarca. Currently PEG tube to LIWS with bile colored drainage, per sister in law at bedside, yesterday drainage was stool colored. (01/04) --> Per RN pt had 2 large, loose BMs this morning. PEG tube to LIWS, suction was turned off last night so unsure if output is decreasing. KUB With SBFT- Gastrografin through PEG notes no leakage identified on injection through G tube. No small bowel obstruction or significant dilation. If output decreasing through PEG ok to restart TF. Discussed with RN states she will monitor. (01/05) Per RN pt still had significant amount of output through OG and PEG tube yesterday so TF was not started. Output has decreased significantly today. No output in canister and it was changed early this AM. Will try to start trickle feeding today. (01/06) Pt currently on Jevity 1.5 running at 10mL/hr. Will reconsult nutrition to evaluate, current recommendations are based on bolus feedings. Unsure he will tolerate this, that was based on pt being discharged to rehab prior to ending up in ICU. Will titrate Jevity up as tolerated. If not tolerating, then pt may benefit from GJ tube. 01/07/18, , tube feeds and tolerated with 50 cc or less residual at 40 cc an hour. Abdomen is taut, active bowel sounds, some minimal arousing much from patient during abdominal palpation . 01/08/18 patient is going for GJ tube, convert from PEG tube due to high risk of aspiration, currently feedings are off stomach has been decompressed Plan: - Obtain nothing by mouth for now - IR GJ tube placement today - Monitor residuals - Monitor stool output - Further recommendations based on clinical course Supportive care Pt has been seen and examined by myself and Dr. Schneider and this note is written on his behalf (Suyapa Jim) Physician Comments Patient seen and examined Agree with above Continue with current supportive care Monitor labs With the conversion of the G-tube to a GJ tube the patient has a lot less risk to aspirate Not much to add from a GI standpoint we will sign off (Cash Schneider MD) Suyapa Jim Jan 08, 2018 10:29 Cash Schneider MD Jan 08, 2018 21:06
--- NOTE | 2018-01-08 10:38 | PD.ONC.PN ---
Subjective Subjective Remarks Afebrile overnight. patient intubated, sedated. at bedside. Objective Data Date Time Temp Pulse Resp B/P (MAP) Pulse Ox O2 Delivery O2 Flow Rate FiO2 01/08/18 09:17 100 Ventilator 40 01/08/18 09:10 100 40 01/08/18 06:00 64 01/08/18 04:18 98 40 01/08/18 04:00 97.5 69 18 150/77 (101) 98 01/08/18 04:00 69 01/08/18 04:00 40 01/08/18 02:00 79 01/08/18 01:34 99 40 01/08/18 00:00 98.2 81 18 119/65 (83) 99 01/08/18 00:00 81 01/08/18 00:00 40 01/07/18 22:00 69 01/07/18 20:16 99 40 01/07/18 20:00 81 01/07/18 20:00 40 01/07/18 20:00 98 Mechanical Ventilator 40 01/07/18 20:00 97.4 87 18 126/96 (106) 98 01/07/18 18:01 74 01/07/18 16:00 97.4 73 18 127/91 (103) 94 01/07/18 16:00 40 01/07/18 12:25 94 40 01/07/18 12:00 68 01/07/18 12:00 40 01/07/18 12:00 97.0 69 18 119/63 (81) 100 01/08/18 01/08/18 01/08/18 07:00 15:00 23:00 Intake Total 1107 ml Output Total 950 ml Balance 157 ml Result Diagram: 01/08/18 0425 01/08/18 0425 Laboratory Results Laboratory Tests Test 01/08/18 04:25 01/08/18 04:45 White Blood Count 9.7 TH/MM3 Red Blood Count 3.00 MIL/MM3 Hemoglobin 8.4 GM/DL Hematocrit 24.8 % Mean Corpuscular Volume 82.8 FL Mean Corpuscular Hemoglobin 28.1 PG Mean Corpuscular Hemoglobin Concent 33.9 % Red Cell Distribution Width 18.8 % Platelet Count 121 TH/MM3 Mean Platelet Volume 9.5 FL CBC Comment AUTO DIFF Differential Total Cells Counted 100 Neutrophils % (Manual) 68 % Band Neutrophils % 30 % Lymphocytes % 2 % Neutrophils # (Manual) 9.5 TH/MM3 Differential Comment FINAL DIFF MANUAL Platelet Estimate LOW Platelet Morphology Comment NORMAL Red Cell Morphology Comment Blood Urea Nitrogen 54 MG/DL Creatinine 2.66 MG/DL Random Glucose 117 MG/DL Total Protein 4.7 GM/DL Albumin 2.2 GM/DL Calcium Level 7.7 MG/DL Phosphorus Level 3.4 MG/DL Magnesium Level 2.3 MG/DL Alkaline Phosphatase 80 U/L Aspartate Amino Transf (AST/SGOT) 28 U/L Alanine Aminotransferase (ALT/SGPT) 18 U/L Total Bilirubin 0.5 MG/DL Sodium Level 144 MEQ/L Potassium Level 4.0 MEQ/L Chloride Level 112 MEQ/L Carbon Dioxide Level 25.0 MEQ/L Anion Gap 7 MEQ/L Estimat Glomerular Filtration Rate 24 ML/MIN Blood Gas Puncture Site RT RADIAL Blood Gas Patient Temperature 98.6 Blood Gas HCO3 22 mmol/L Blood Gas Base Excess -1.5 mmol/L Blood Gas Oxygen Saturation 94 % Arterial Blood pH 7.43 Arterial Blood Partial Pressure CO2 34 mmHg Arterial Blood Partial Pressure O2 76 mmHg Arterial Blood Oxygen Content 11.5 Vol % Arterial Blood Carboxyhemoglobin 1.3 % Arterial Blood Methemoglobin 1.0 % Blood Gas Hemoglobin 8.7 G/DL Oxygen Delivery Device VENTILATOR Blood Gas Ventilator Setting PRVC/AC Blood Gas Inspired Oxygen 40 % Administered Medications Medications (Trade) Dose Ordered Sig/Candace Route PRN Reason Start Time Stop Time Status Last Admin Dose Admin Sodium Chloride (NS Flush) 2 ml BID IV FLUSH 12/22/17 21:00 01/08/18 08:31 Ondansetron HCl (Zofran Inj) 4 mg Q6H PRN IVP NAUSEA OR VOMITING 12/22/17 18:15 01/01/18 10:02 Albuterol/ Ipratropium (Duoneb Neb) 1 ampule Q4HR NEB PRN NEB SOB/WHEEZING 12/22/17 20:15 01/01/18 10:08 Zolpidem Tartrate (Ambien) 5 mg HS PRN PO INSOMNIA 12/22/17 20:15 12/26/17 20:30 Pantoprazole Sodium (Protonix) 40 mg Q12HR PO 12/22/17 21:00 01/07/18 21:35 Megestrol Acetate (Megace Liq) 800 mg DAILY PO 12/23/17 09:00 01/07/18 11:41 Budesonide/ Formoterol Fumarate (Symbicort 160-4.5 Mcg Inh) 1 puff Q12HR INH 12/22/17 21:00 01/01/18 08:53 Aspirin (Ecotrin Ec) 81 mg DAILY PO 12/23/17 09:00 01/06/18 08:01 Atorvastatin Calcium (Lipitor) 80 mg DAILY PO 12/23/17 09:00 01/08/18 08:32 Multivitamins (Theragran) 1 tab DAILY PO 12/23/17 09:00 01/08/18 08:32 Heparin Sodium (Porcine) (Heparin Central Flush) 250 units UNSCH PRN IV FLUSH SEE PROTOCOL 12/22/17 20:30 12/27/17 20:27 Guaifenesin/ Dextromethorphan (Robitussin Dm 200-20 Mg/10 ml Liq) 10 ml Q4H PRN PO cough interfering with rest 12/22/17 21:00 12/26/17 18:27 Guaifenesin (Mucinex Er) 600 mg BID PO 12/23/17 21:00 01/07/18 21:35 Allopurinol (Zyloprim) 300 mg DAILY PO 12/26/17 09:00 01/08/18 08:32 Acetaminophen (Tylenol) 650 mg Q4H PRN PO FEVER>[id number] 12/26/17 14:45 12/26/17 20:32 Acetaminophen (Tylenol) 650 mg Q4H PRN PO SEE LABEL COMMENTS 12/31/17 16:30 12/31/17 21:19 Calcium Carbonate (Tums Chew) 500 mg Q12HR PRN CHEW indigestion 12/31/17 16:15 01/01/18 05:27 Prednisone (Deltasone) 10 mg BID PO 01/01/18 21:00 01/08/18 08:31 Chlorhexidine Gluconate (Peridex 0.12% Liq) 15 ml BID@08,20 MT 01/01/18 20:00 01/08/18 08:33 Norepinephrine Bitartrate 250 ml @ 7.5 mls/hr TITRATE PRN IV Blood pressure management 01/01/18 17:00 01/02/18 21:09 Propofol 100 ml @ 2.757 mls/ hr TITRATE PRN IV SEDATION 01/02/18 11:15 01/08/18 08:40 Dextrose 1,000 ml @ 20 mls/hr Q24H IV 01/04/18 07:00 01/07/18 17:53 Meropenem 1000 mg/ Sodium Chloride 100 ml @ 200 mls/hr Q12H IV 01/05/18 16:00 01/08/18 03:41 Docusate Sodium (Colace Liq) 100 mg Q12HR OG-TUBE 01/07/18 21:00 01/08/18 08:31 Objective Remarks GENERAL: Intubated, sedated male. SKIN: Warm and dry. HEAD: Normocephalic. EYES: No injection or drainage. NECK: Supple, trachea midline. CARDIOVASCULAR: Regular rate and rhythm RESPIRATORY: anterior clark with scattered rhonchi. on mechanical ventilation. GASTROINTESTINAL: Abdomen soft, non-tender, nondistended. 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 01/07: Continue neupogen x 1 more day. Monitor CBC. Transfuse 1 unit packed red blood cells if hemoglobin trending down tomorrow. CXR shows worsening disease. Abx per ID, Vent mgmt by battery test engineer. 01/06: Patient no longer neutropenic. Continue Neupogen today. Monitor CBC. 01/05: Noted white blood cells minimally improved. Continue Neupogen for now. Await results from CT brain. Supportive care. 01/04: remains on vent. Off pf pressors. Pancytopenia with Neutropenia. Continue neupogen. Vent management per Tool Drawing Checker. Extensive d/w and DIL ( FLOTATION TANK OPERATOR) . answered their questions. Continue maximal support. 01/03: Continue Neupogen. Transfuse 1 unit packed red blood cells today for hemoglobin of 7.5. Monitor CBC. 01/02: patient remains intubated, sedated. start Neupogen for neutropenia + infection 01/01: patient in respiratory failure. intubated and transferring to intensive care. 12/31: C. difficile negative. Bone marrow biopsy shows no lymphoma involvement. Cytology from thoracentesis pending. Transfuse 1 unit PRBC for symptomatic with hgb 7.7. Patient would benefit from inpatient rehab for strengthening 12/28: continue solu-medrol. await thoracentesis. consult OT. 12/27: start Solu-medrol 40mg IV q 6. consult pulmonology for worsening infiltrates, pleural effusions. monitor CBC, counts dropping. 12/26: CT chest shows Bilateral Pl effusion. Continue aggressive diuresis. Had CHOP C1D1 yesterday. Tolerated well. Next chemo in 3 weeks as outpt. Continue allopurinol and prednisone. 12/25: CTA shows no PE. +LAD, PE. dyspnea likely d/t lymphoma. will give Solu- medrol 1g IV and start CHOP today. Anaplastic large cell, non-Hodgkin's lymphoma, at least stage III. --unclear whether he has any B symptoms, but this could be most likely given that he has significant weight loss, which is one of the symptoms of lymphoma. --Leukocytosis, anemia and neutrophilia, most likely due to bone marrow involvement by the lymphoma until proven otherwise. (2) Renal insufficiency ICD Codes: N28.9 - Disorder of kidney and ureter, unspecified Plan: --Nephrology following. --unclear etiology Assessment 72y/o male with newly diagnosed anaplastic large cell NHL. h/o COPD, hypercholesterolemia, hypertension, history of previous stroke. HPI: started 8 weeks ago with a cough mixed with greenish phlegm and shortness of breath. CT cap showed diffuse lymphadenopathy on both sides of the diaphragm. PET scan showed increased uptake in the lymph nodes involving the neck, chest, mediastinal and hilar area, retroperitoneum and pelvic lymph nodes. biopsy of the left neck mass=anaplastic large cell NHL echocardiogram, LVEF=55-70%. MUGA scan, showed EF of 60%. Attending Statement The exam, history, and the medical decision-making described in the above note were completed with the assistance of the mid-level provider. I reviewed and agree with the findings presented. I attest that I had a [id number] encounter with the patient on the same day, and personally performed and documented my assessment and findings in the medical record. Sedated , on vent. wbc back to normal. D/C neupogen. Plat are almost NL. No evidence of Tumor Lysis syndrome. ARF is due to ATN from sepsis and/or meds D/C allopurinol. Susy La Jan 08, 2018 10:38 Josy Suarez MD Jan 08, 2018 23:20
--- NOTE | 2018-01-08 13:09 | HHI.PR ---
Subjective Remarks Was intubated on 01/01 for aspiration and respiratory failure. Now on FIO2 40 % and PEEP at 6. X ray chest shows Bilat infiltrates. On antibiotics. Going for J G Tube Objective Vital Signs Date Time Temp Pulse Resp B/P (MAP) Pulse Ox O2 Delivery O2 Flow Rate FiO2 01/08/18 12:52 98 40 01/08/18 12:00 97.6 59 18 156/72 (100) 98 01/08/18 12:00 64 01/08/18 12:00 40 01/08/18 10:00 59 01/08/18 09:17 100 Ventilator 40 01/08/18 09:10 100 40 01/08/18 08:00 67 01/08/18 08:00 97.5 67 18 135/69 (91) 98 01/08/18 08:00 40 01/08/18 07:30 98 Mechanical Ventilator 40 01/08/18 06:00 64 01/08/18 04:18 98 40 01/08/18 04:00 97.5 69 18 150/77 (101) 98 01/08/18 04:00 69 01/08/18 04:00 40 01/08/18 02:00 79 01/08/18 01:34 99 40 01/08/18 00:00 98.2 81 18 119/65 (83) 99 01/08/18 00:00 81 01/08/18 00:00 40 01/07/18 22:00 69 01/07/18 20:16 99 40 01/07/18 20:00 81 01/07/18 20:00 40 01/07/18 20:00 98 Mechanical Ventilator 40 01/07/18 20:00 97.4 87 18 126/96 (106) 98 01/07/18 18:01 74 01/07/18 16:00 97.4 73 18 127/91 (103) 94 01/07/18 16:00 40 I/O 01/07/18 01/07/18 01/07/18 01/08/18 01/08/18 01/08/18 07:00 15:00 23:00 07:00 15:00 23:00 Intake Total 2597 ml 500 ml 1618 ml 1107 ml Output Total 850 ml 1150.0 ml 950 ml Balance 1747 ml 500 ml 468.0 ml 157 ml IV Total 1879 ml 500 ml 1309 ml 666 ml Tube Feeding 368 ml 189 ml 141 ml Other 350 ml 120 ml 300 ml Output Urine Total 850 ml 950 ml 950 ml Tube Feeding Residual Discard 200.0 ml # Bowel Movements 0 1 1 Result Diagram: 01/08/185 01/08/18 0425 Procedures PEG tube placement. Bone Marrow Biopsy 12/25/17 Objective Remarks General appearance: This elderly white male is averagely built, on vent support. HEENT: Head normocephalic. Pupils reactive. Sclerae were clear Ears: No inflammation. Throat was clear. Neck: No bruits or thyroid enlargement or lymphadenopathy. Chest: Distant breath sounds with expiratory wheezes in the upper chest and a few crackles at both lung bases. Cardiovascular: The heart sounds are regular, S1 and S2. No murmur. No S3. Abdomen: Is soft, benign. No masses. Extremities: No edema. Pt is sedated. Assessment and Plan Assessment and Plan IMPRESSION: 1. Bibasilar pleural effusions with atelectasis. 2. History of hypertension. 3. Hyperlipidemia. 4. COPD, emphysema. 5. History of Anaplastic NHL . 6. Respiratory Failure Plan : 1. Cont Antibiotics per ID 2 Wean FIo2 to keep sat >92 3. Solumedrol 40 mg BID 4. Nebs qid , duoneb. 5.CPAP trial if stable after J Tube 6. CBC,BMP, in am 7. Stop sedation 8. Mucomyst 10 % , 2 CC q8h Katiuska Blevins MD Jan 08, 2018 13:09
--- NOTE | 2018-01-08 14:39 | HHI.NPPN ---
Subjective History of Present Illness 72-year-old male with history of large cell lymphoma, acute renal failure, respiratory failure on ventilator Objective Data Data Vital Signs Date Time Temp Pulse Resp B/P (MAP) Pulse Ox O2 Delivery O2 Flow Rate FiO2 01/08/18 14:15 64 01/08/18 12:52 98 40 01/08/18 12:00 97.6 59 18 156/72 (100) 98 01/08/18 12:00 64 01/08/18 12:00 40 01/08/18 10:00 59 01/08/18 09:17 100 Ventilator 40 01/08/18 09:10 100 40 01/08/18 08:00 67 01/08/18 08:00 97.5 67 18 135/69 (91) 98 01/08/18 08:00 40 01/08/18 07:30 98 Mechanical Ventilator 40 01/08/18 06:00 64 01/08/18 04:18 98 40 01/08/18 04:00 97.5 69 18 150/77 (101) 98 01/08/18 04:00 69 01/08/18 04:00 40 01/08/18 02:00 79 01/08/18 01:34 99 40 01/08/18 00:00 98.2 81 18 119/65 (83) 99 01/08/18 00:00 81 01/08/18 00:00 40 01/07/18 22:00 69 01/07/18 20:16 99 40 01/07/18 20:00 81 01/07/18 20:00 40 01/07/18 20:00 98 Mechanical Ventilator 40 01/07/18 20:00 97.4 87 18 126/96 (106) 98 01/07/18 18:01 74 01/07/18 16:00 97.4 73 18 127/91 (103) 94 01/07/18 16:00 40 -: 01/08/18 0425 01/08/18 0425 Physical Exam General Appearance: Well Developed Neck Neck Exam: Neck Supple Pulmonary Resp Exam: Rhonchi Cardiology CV Exam: Regular, Normal Sinus Rhythm Gastrointestinal/Abdomen GI Exam: Soft, Non-Tender, Bowel Sounds Present Extremeties Extremities Exam: Moderate Edema Assessment/Plan Problem List: (1) Acute renal failure ICD Codes: N17.9 - Acute kidney failure, unspecified Status: Acute Plan: he has sepsis contributing to ARF FeNa low <1 Urine output 1.9 L after Lasix Cr 2.6 higher Na 144 improved Continue to observe for recovery Avoid nephrotoxic agent Monitor BMP 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
--- NOTE | 2018-01-08 14:42 | HHI.NPPN ---
Subjective History of Present Illness 72-year-old male with history of large cell lymphoma, acute renal failure, respiratory failure on ventilator Objective Data Data Vital Signs Date Time Temp Pulse Resp B/P (MAP) Pulse Ox O2 Delivery O2 Flow Rate FiO2 01/08/18 14:15 64 01/08/18 12:52 98 40 01/08/18 12:00 97.6 59 18 156/72 (100) 98 01/08/18 12:00 64 01/08/18 12:00 40 01/08/18 10:00 59 01/08/18 09:17 100 Ventilator 40 01/08/18 09:10 100 40 01/08/18 08:00 67 01/08/18 08:00 97.5 67 18 135/69 (91) 98 01/08/18 08:00 40 01/08/18 07:30 98 Mechanical Ventilator 40 01/08/18 06:00 64 01/08/18 04:18 98 40 01/08/18 04:00 97.5 69 18 150/77 (101) 98 01/08/18 04:00 69 01/08/18 04:00 40 01/08/18 02:00 79 01/08/18 01:34 99 40 01/08/18 00:00 98.2 81 18 119/65 (83) 99 01/08/18 00:00 81 01/08/18 00:00 40 01/07/18 22:00 69 01/07/18 20:16 99 40 01/07/18 20:00 81 01/07/18 20:00 40 01/07/18 20:00 98 Mechanical Ventilator 40 01/07/18 20:00 97.4 87 18 126/96 (106) 98 01/07/18 18:01 74 01/07/18 16:00 97.4 73 18 127/91 (103) 94 01/07/18 16:00 40 -: 01/08/18 0425 01/08/18 0425 Physical Exam General Appearance: Well Developed Neck Neck Exam: Neck Supple Pulmonary Resp Exam: Rhonchi Cardiology CV Exam: Regular, Normal Sinus Rhythm Gastrointestinal/Abdomen GI Exam: Soft, Non-Tender, Bowel Sounds Present Extremeties Extremities Exam: Moderate Edema Assessment/Plan Problem List: (1) Acute renal failure ICD Codes: N17.9 - Acute kidney failure, unspecified Status: Acute Plan: he has sepsis contributing to ARF FeNa low <1 edema worse Urine output 1.9 L given Lasix Cr 2.6 higher Give Albumin with Lasix this afternoon Na 144 improved Continue to observe for recovery Avoid nephrotoxic agent Monitor BMP 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
[2018-01-08] MEDS ORDERED: ALBUMIN 25% INJ 100 ML IV ONE (14:45)
--- NOTE | 2018-01-08 16:01 | PD.RAD ---
Post Procedure Progress Note Pre Procedure Diagnosis: (1) Respiratory failure Post Procedure Diagnosis: (1) Respiratory failure Procedure Date: Jan 08, 2018 Supervising Radiologist: Siva Bean JR Proceduralist/Assist: Clifford Pantoja, RT(R), RT Arron(R) Anesthesia: Other Plan of Activity Patient to Unit: Critical Care Patient Condition: Fair See PACS Report for procedural detail/treatment Feeding Tube Gastro/Jejunostomy Conversion American: 22 Findings: original G tube placed elsewhere. Converted G tube to GJ tube. Access into the stomach is quite high in the fundus. Tip of Jejunal portion in proximal jejunum. Jr. Vikas,Siva Marin MD Jan 08, 2018 16:01
[2018-01-08] MEDS ORDERED: IOHEXOL 350 MG/ML 50 ML BTL (for RAD DIAG) G-TUBE ONE (16:05)
--- NOTE | 2018-01-08 16:34 | RADRPT ---
EXAM DATE/TIME: 01/08/2018 14:35 [place] COMPARISON: No previous studies available for comparison. INDICATIONS : Patient presents with gastrostomy tube placed at an outlying institution in need of gastrojejunal con version for nutrition. Aspiration.. MEDICAL HISTORY : NSVT while at [facility] CVA without residual deficits Hyperlipidemia Hypertension COPD Bilateral lower extremity neuropathy SURGICAL HISTORY : Port-A-Cath placed 12/20/2017 Back surgery [facility] in [place] ENCOUNTER: Initial ACUITY: 3 weeks PAIN SCORE: Nonresponsive. LOCATION: N/A FLUORO TIME: 6.8 minutes IMAGE SERIES: 5 CONTRAST: 35 cc Omnipaque (iohexol) 350 DEVICE(S): 1.) 22 Fr Transgastric tube TECH NOTE: Patient presented vented and recieved sedatives.ELLIOT GONZALEZ MR#[id number] :44 Exam date/d esc:January 08, 2018GASTROSTOMY TUBE CONVERSION TO GASTRO-JEJUNOSTOMY TUBE PROCEDURE: 1. Fluoroscopically guided gastrostomy to gastrojejunostomy conversion 2. Conscious sedation with continuous EKG and oximetry monitoring. TECHNIQUE: Under sterile conditions and using aseptic technique a guidewire was passed through the previous bryon rostomy tube and the wire was manipulated into the small bowel. The access into the stomach is quite high within the fundus. The prescribed gastrojejunostomy tube was placed over the guidewire. The ball oon was inflated with appropriate volume of saline. Injection of positive contrast demonstrates good position of the gastric and jejunal sections of the tube. Conscious sedation was performed with the prescribed dosages and duration as above in the presence of an independent trained radiology nurse to assist in the monitoring of the patient. EKG and oximetry remained stable throughout the procedure. CONCLUSION: Conversion of the patient's existing gastrostomy tube to a gastrojejunostomy tube. Siva Bean Jr., MD on January 08, 2018 at 16:30 Board Certified Radiologist. This report was verified electronically.
[2018-01-08] MEDS: DEXTROSE 5% IN WATE 1000ML INJ 1,000 ML IV SCH ×2 (17:23→18:00)
[2018-01-08] MEDS ORDERED: SODIUM CHLORIDE 0.9% FLUSH 10 ML FLUSH IV FLUSH PRN (18:00)
[2018-01-08] MEDS: BUDESONIDE-FORMOTEROL 160/4.5 MCG INHALER INH SCH (21:00)
--- NOTE | 2018-01-08 21:45 | HHI.IDPN ---
Note Infectious Disease Note ID xcover for . Delayed entry patient seen at 2 pm approx. Overnight events reviewed with RN. Patient on ventilator. Opens eyes. Moves extremities. Blood pressure stable. No fever. No rash No diarrhea Sputum culture normal resp david. WBC improving. 72-year-old white male who was diagnosed with lymphoma. The patient was noted to have become ill 2 months ago. He was noted to have cough and he was given 3 rounds of oral antibiotics without improvement of the cough. Subsequent workup revealed mediastinal adenopathy and other areas of adenopathy, and a biopsy of the lesion of the neck came back showing lymphoma. During his stay at [facility], he had no fever. He was given antibiotics. An Infusaport was placed on 12/20 for anticipated chemotherapy. 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 ALLERGIES: HYDROCODONE. Current Medications Medications (Trade) Dose Ordered Sig/Candace Route Start Time Stop Time Status Last Admin (NS Flush) 2 ml UNSCH PRN IV FLUSH 12/22/17 18:15 (NS Flush) 2 ml BID IV FLUSH 12/22/17 21:00 01/08/18 08:31 (Zofran Inj) 4 mg Q6H PRN IVP 12/22/17 18:15 01/01/18 10:02 (Narcan Inj) 0.4 mg UNSCH PRN IV PUSH 12/22/17 18:15 (Milk Of Magnesia Liq) 30 ml Q12H PRN PO 12/22/17 18:15 (Senokot) 17.2 mg Q12H PRN PO 12/22/17 18:15 (Lactulose Liq) 30 ml DAILY PRN PO 12/22/17 18:15 (Duoneb Neb) 1 ampule Q4HR NEB PRN NEB 12/22/17 20:15 01/01/18 10:08 (Ambien) 5 mg HS PRN PO 12/22/17 20:15 12/26/17 20:30 (Protonix) 40 mg Q12HR PO 12/22/17 21:00 01/07/18 21:35 (Megace Liq) 800 mg DAILY PO 12/23/17 09:00 01/07/18 11:41 (Symbicort 160-4.5 Mcg Inh) 1 puff Q12HR INH 12/22/17 21:00 01/01/18 08:53 (Ecotrin Ec) 81 mg DAILY PO 12/23/17 09:00 01/06/18 08:01 (Lipitor) 80 mg DAILY PO 12/23/17 09:00 Future Hold 01/08/18 08:32 (Theragran) 1 tab DAILY PO 12/23/17 09:00 01/08/18 08:32 (Heparin Central Flush) 500 units UNSCH IV FLUSH 12/22/17 20:30 (NS Flush) 5 ml UNSCH PRN IVF 12/22/17 20:30 (Heparin Central Flush) 250 units UNSCH PRN IV FLUSH 12/22/17 20:30 12/27/17 20:27 (D50w (Vial) Inj) 50 ml UNSCH PRN IV PUSH 12/22/17 20:30 (Glucagon Inj) 1 mg UNSCH PRN OTHER 12/22/17 20:30 (Robitussin Dm 200-20 Mg/10 ml Liq) 10 ml Q4H PRN PO 12/22/17 21:00 12/26/17 18:27 (Mucinex Er) 600 mg BID PO 12/23/17 21:00 01/07/18 21:35 (Tessalon) 100 mg TID PRN PO 12/25/17 12:00 (Tylenol) 650 mg Q4H PRN PO 12/26/17 14:45 12/26/17 20:32 (Tylenol) 650 mg Q4H PRN PO 12/31/17 16:30 12/31/17 21:19 (Benadryl) 25 mg Q4H PRN PO 12/31/17 16:30 (Tums Chew) 500 mg Q12HR PRN CHEW 12/31/17 16:15 01/01/18 05:27 (Deltasone) 10 mg BID PO 01/01/18 21:00 01/08/18 08:31 (Brethine Inj) 1 mg UNSCH PRN SQ 01/01/18 16:45 (Peridex 0.12% Liq) 15 ml BID@08,20 MT 3/20/18 20:00 01/08/18 08:33 Norepinephrine Bitartrate 250 ml @ 7.5 mls/hr TITRATE PRN IV 01/01/18 17:00 01/02/18 21:09 (Brethine Inj) 1 mg UNSCH PRN SQ 01/01/18 17:00 Propofol 100 ml @ 2.757 mls/ hr TITRATE PRN IV 01/02/18 11:15 01/08/18 13:56 Dextrose 1,000 ml @ 20 mls/hr Q24H IV 01/04/18 07:00 01/08/18 18:00 Meropenem 1000 mg/ Sodium Chloride 100 ml @ 200 mls/hr Q12H IV 01/05/18 16:00 01/08/18 17:22 Fentanyl Citrate 250 ml @ 5 mls/hr CONTINUOUS PRN IV 01/07/18 14:45 01/10/18 14:44 (NovoLOG SUPPLEMENTAL SCALE) 1 Q6HR SQ 01/07/18 18:00 (Colace Liq) 100 mg Q12HR OG-TUBE 01/07/18 21:00 01/08/18 08:31 (NS Flush) 5 ml UNSCH PRN IV FLUSH 01/08/18 18:00 (Heparin Central Flush) 250 units UNSCH PRN IV FLUSH 01/08/18 18:00 (Heparin Central Flush) 500 units UNSCH IV FLUSH 01/08/18 18:00 Vital Signs Date Time Temp Pulse Resp B/P (MAP) Pulse Ox O2 Delivery O2 Flow Rate FiO2 01/08/18 18:00 40 01/08/18 18:00 61 01/08/18 17:53 97 40 01/08/18 16:00 98.2 80 21 151/77 (101) 100 01/08/18 16:00 80 01/08/18 15:00 100 100 01/08/18 14:15 64 01/08/18 12:52 98 40 01/08/18 12:00 97.6 59 18 156/72 (100) 98 01/08/18 12:00 64 01/08/18 12:00 40 01/08/18 10:00 59 01/08/18 09:17 100 Ventilator 40 01/08/18 09:10 100 40 01/08/18 08:00 67 01/08/18 08:00 97.5 67 18 135/69 (91) 98 01/08/18 08:00 40 01/08/18 07:30 98 Mechanical Ventilator 40 01/08/18 06:00 64 01/08/18 04:18 98 40 01/08/18 04:00 97.5 69 18 150/77 (101) 98 01/08/18 04:00 69 01/08/18 04:00 40 01/08/18 02:00 79 01/08/18 01:34 99 40 01/08/18 00:00 98.2 81 18 119/65 (83) 99 01/08/18 00:00 81 01/08/18 00:00 40 01/07/18 22:00 69 Laboratory Tests Test 01/07/18 04:25 01/08/18 04:25 White Blood Count 4.3 TH/MM3 9.7 TH/MM3 Red Blood Count 2.68 MIL/MM3 3.00 MIL/MM3 Hemoglobin 7.5 GM/DL 8.4 GM/DL Hematocrit 22.3 % 24.8 % Mean Corpuscular Volume 83.3 FL 82.8 FL Mean Corpuscular Hemoglobin 27.9 PG 28.1 PG Mean Corpuscular Hemoglobin Concent 33.5 % 33.9 % Red Cell Distribution Width 18.4 % 18.8 % Platelet Count 70 TH/MM3 121 TH/MM3 Mean Platelet Volume 10.3 FL 9.5 FL CBC Comment AUTO DIFF AUTO DIFF Differential Total Cells Counted 100 100 Neutrophils % (Manual) 77 % 68 % Band Neutrophils % 13 % 30 % Lymphocytes % 5 % 2 % Monocytes % 5 % Neutrophils # (Manual) 3.9 TH/MM3 9.5 TH/MM3 Differential Comment FINAL DIFF MANUAL FINAL DIFF MANUAL Toxic Granulation 1+ Platelet Estimate LOW LOW Platelet Morphology Comment ENLARGED NORMAL Ovalocytes 1+ Red Cell Morphology Comment Laboratory Tests Test 01/07/18 04:25 01/08/18 04:25 Blood Urea Nitrogen 53 MG/DL 54 MG/DL Creatinine 2.55 MG/DL 2.66 MG/DL Random Glucose 121 MG/DL 117 MG/DL Total Protein 4.4 GM/DL 4.7 GM/DL Albumin 2.2 GM/DL 2.2 GM/DL Calcium Level 7.7 MG/DL 7.7 MG/DL Phosphorus Level 3.0 MG/DL 3.4 MG/DL Magnesium Level 2.2 MG/DL 2.3 MG/DL Alkaline Phosphatase 55 U/L 80 U/L Aspartate Amino Transf (AST/SGOT) 23 U/L 28 U/L Alanine Aminotransferase (ALT/SGPT) 17 U/L 18 U/L Total Bilirubin 0.5 MG/DL 0.5 MG/DL Sodium Level 146 MEQ/L 144 MEQ/L Potassium Level 3.6 MEQ/L 4.0 MEQ/L Chloride Level 112 MEQ/L 112 MEQ/L Carbon Dioxide Level 22.6 MEQ/L 25.0 MEQ/L Anion Gap 11 MEQ/L 7 MEQ/L Estimat Glomerular Filtration Rate 25 ML/MIN 24 ML/MIN Microbiology Date/Time Source Procedure Growth Status 01/01/18 17:57 Blood Peripheral Aerobic Blood Culture - Final NO GROWTH IN 5 DAYS Complete 01/01/18 17:57 Blood Peripheral Anaerobic Blood Culture - Final NO GROWTH IN 5 DAYS Complete 12/28/17 12:15 Fluid Pleural Fluid Fungal Smear - Final NO FUNGAL ELEMENTS SEEN. Resulted 12/28/17 12:15 Fluid Pleural Fluid Fungal Culture - Preliminary NO GROWTH IN 1 WEEK Resulted 01/01/18 17:15 Sputum Endotracheal Gram Stain - Final Complete 01/01/18 17:15 Sputum Endotracheal Sputum Culture - Final HEAVY GROWTH NORMAL RESPIRATORY DAVID Complete 01/01/18 17:15 Urine Catheterized Urine Urine Culture - Final NO GROWTH IN 48 HOURS. Complete Last Impressions Gastrostomy Tube Change 01/08/18 0000 Signed Impressions: Service Date/Time: Monday, January 08, 2018 14:35 - CONCLUSION: Conversion of the patient's existing gastrostomy tube to a gastrojejunostomy tube. Siva Bean Jr., MD Chest X-Ray 01/07/18 0600 Signed Impressions: Service Date/Time: Sunday, January 07, 2018 05:05 - CONCLUSION: Worsening bilateral airspace disease. Kaveh Perales MD Renal Ultrasound 01/05/18 0000 Signed Impressions: Service Date/Time: Friday, January 05, 2018 08:00 - CONCLUSION: Echogenic kidneys suggesting medical renal disease. Some ascites. Bilateral pleural effusions. Lee Mijares MD Head CT 01/05/18 0000 Signed Impressions: Service Date/Time: Friday, January 05, 2018 11:41 - CONCLUSION: 1. No acute abnormality is seen. 2. Old lacunar infarct at the left basal ganglia. 3. Fluid in the mastoid air cells on the right. Andres Valero MD Small Bowel X-Ray 01/03/18 0000 Signed Impressions: Service Date/Time: December 14:27 - CONCLUSION: 1. No leakage identified on injection through gastrostomy tube. No small bowel obstruction or significant dilatation. Elbert Carrasquillo MD Abdomen/Pelvis CT 01/02/18 0000 Signed Impressions: Service Date/Time: Tuesday, January 02, 2018 21:38 - CONCLUSION: 1. Free intraperitoneal air of unknown etiology. On the supine view most of the free air is around the gastrostomy tube and tip of the nasogastric tube as discussed above. 2. Mild to moderate ascites. Moderate anasarca. 3. Moderate bilateral effusions with basilar atelectasis. 4. Nonobstructing right renal calculus. Hay catheter in bladder. Elbert Carrasquillo MD Chest CT 12/30/17 0000 Signed Impressions: Service Date/Time: Saturday, December 30, 2017 21:13 - CONCLUSION: 1. Free intraperitoneal air in the upper abdomen of uncertain etiology. There is a gastrostomy present. 2. Moderate bilateral pleural effusions with compressive atelectasis. Patchy air space consolidation in the right upper lobe. 3. Moderate anasarca and ascites. 4. Findings called to the floor at the time of dictation. Elbert Carrasquillo MD Chest Ultrasound 12/27/17 0000 Signed Impressions: Service Date/Time: December 21:39 - CONCLUSION: Large left pleural effusion and would be amenable to thoracentesis. Frandy was made on the overlying skin. Andres Parekh MD Bone Biopsy CT 12/25/17 1142 Signed Impressions: Service Date/Time: Monday, December 25, 2017 12:32 - CONCLUSION: 1. Uncomplicated CT guided bone marrow aspirate. 2. Uncomplicated CT guided bone marrow biopsy. Lee Mijares MD CT Angiography 12/25/17 0000 Signed Impressions: Service Date/Time: Monday, December 25, 2017 09:26 - CONCLUSION: 1. No CT evidence for pulmonary artery embolism. 2. Moderate to large bilateral pleural effusions with associated compressive atelectasis at the lung bases. 3. 8mm nodule in the right middle lobe. Followup CT examination may be performed at 6 months to document stability if this has not been evaluated previously. 4. Very mildly prominent mediastinal and hilar nodes and partially imaged upper abdominal lymphadenopathy in this patient with history of lymphoma. Miguel Ashton MD PHYSICAL EXAMINATION: GENERAL: On the ventilator. Sedated. HEENT: No icterus. No conjunctival erythema. NECK: Supple. No adenopathy. No swelling. LUNGS: Decreased breath sounds bilateral. HEART: Regular S1 and S2. No murmurs, rubs or gallops. ABDOMEN: Markedly diminished bowel sounds, soft. EXTREMITIES: No clubbing or cyanosis, 1+ edema of the extremities. SKIN: No rash. NEUROLOGIC: Opens eyes spontaneously, moves all 4 extremities. PSYCHIATRIC: Unable to assess. IV line sites with no e.o infection. IMPRESSION: 1. Pneumonia. Bibasilar lung infiltrates. Preliminary cultures showing gram- negative bacteria. ID pending. Aspiration with decline in respiratory status. 2. Acute respiratory failure. Intubated on the ventilator. 3. Bilateral pleural effusions. Post thoracentesis. 4. Lymphoma. Treated with chemotherapy. 5. Neutropenia postchemotherapy. White blood cell count remains significantly depressed. Patient post chemotherapy. Patient now has pancytopenia. 5. Decreased nutrition in patient with anorexia and now post percutaneous endoscopic gastrostomy placement. Tube feeds placed on hold because of concern for aspiration Patient still very critically ill. RECOMMENDATIONS: DC meropenem Sputum with normal resp david. Clinical picture cw Aspiration PNA per ellen URIOSTEGUI MD. Start Cefepime IV Start Flagyl po or peg/J tube. Worsening CXR ? fluid overload related. Follow cultures Follow clinically. ellen patient in room. ellen hughes RN. Mandie Briggs MD Jan 08, 2018 21:45
[2018-01-08] MEDS: metroNIDAZOLE 500 MG TAB PO SCH (23:16)
[2018-01-08] MEDS: CEFEPIME INJ 2,000 MG in SODIUM CHLORIDE 0.9% INJ 100 ML IV SCH (23:17)
[2018-01-09] VITALS (18 sets, daily range): BP systolic 113–156; BP diastolic 70–77; PULSE 74–114; RESP 18–22; TEMP 97.2–97.8; O2SAT 94–98
[2018-01-09] MEDS: PROPOFOL 1000 MG/100 ML INJ 100 ML IV PRN ×4 (03:18→20:31)
[2018-01-09 04:21] LABS: HEMATOCRIT 25.6 % (39.0-51.0); HEMOGLOBIN 8.5 GM/DL (13.0-17.0); MEAN CELL VOLUME 82.8 FL (80.0-100.0); MEAN CORPUSCULAR HEMOGLOBIN 27.6 PG (27.0-34.0); MEAN CORPUSCULAR HGB CONC 33.3 % (32.0-36.0); MEAN PLATELET VOLUME 9.7 FL (7.0-11.0); PLATELET COUNT 181 TH/MM3 (150-450); RED BLOOD COUNT 3.09 MIL/MM3 (4.50-5.90); RED CELL DISTRIBUTION WIDTH 17.9 % (11.6-17.2); WHITE BLOOD COUNT 11.2 TH/MM3 (4.0-11.0)
[2018-01-09 04:50] LABS: ALBUMIN 2.2 GM/DL (3.4-5.0); BICARBONATE 24.9 MEQ/L (21.0-32.0); CALCIUM 7.9 MG/DL (8.5-10.1); CREATININE 2.71 MG/DL (0.60-1.30); PHOSPHORUS 3.7 MG/DL (2.5-4.9)
[2018-01-09 05:06] LABS: BANDS 9 % (0-6); LYMPHOCYTES 1 % (9-44); NEUTROPHIL # MANUAL DIFF 11.1 TH/MM3 (1.8-7.7); POLYS (SEG NEUTROPHILS) 90 % (16-70)
[2018-01-09 05:07] LABS: KERATOCYTES 1+ (NORMAL)
[2018-01-09 05:08] LABS: TARGET CELLS 1+ (NORMAL)
[2018-01-09] MEDS: metroNIDAZOLE 500 MG TAB PO SCH ×3 (05:18→20:21)
[2018-01-09] MEDS: INSULIN ASPART SUPPLEMENTAL SCALE SQ SCH ×3 (05:20→18:00)
--- NOTE | 2018-01-09 06:17 | RADRPT ---
EXAM DATE/TIME: 01/09/2018 05:20 [facility] COMPARISON: CHEST SINGLE AP, January 07, 2018, 5:05. INDICATIONS : Shortness of breath. MEDICAL HISTORY : Hypertension. Lymphoma. Chronic obstructive pulmonary disease. Hypercholesterolemia, CVA SURGICAL HISTORY : Port placement. Back surgery ENCOUNTER: Subsequent ACUITY: 2 weeks PAIN SCORE: Non-responsive. LOCATION: Bilateral chest FINDINGS: A single view of the chest demonstrates bilateral airspace disease and probable bilateral pleural eff usions. Heart mildly enlarged. Endotracheal tube and left jugular central line stable position. Right -sided port unchanged. Osseous structures are intact. Nasogastric tube removed. CONCLUSION: Stable bilateral airspace disease and probable small pleural effusions. Kaveh Perales MD on January 09, 2018 at 6:14 Board Certified Radiologist. This report was verified electronically.
[2018-01-09] MEDS: SODIUM CHLORIDE 0.9% FLUSH 10 ML FLUSH IV FLUSH SCH ×2 (08:20→20:22)
[2018-01-09] MEDS: MEGESTROL ACETATE SUSP 400 MG/10 ML CUP PO SCH (08:20)
[2018-01-09] MEDS: BUDESONIDE-FORMOTEROL 160/4.5 MCG INHALER INH SCH ×2 (08:20→20:21)
[2018-01-09] MEDS: predniSONE 10 MG TAB PO SCH ×2 (08:20→20:21)
[2018-01-09] MEDS: CHLORHEXIDINE 0.12% (ORAL KIT) 15 ML CUP MT SCH ×2 (08:20→20:21)
[2018-01-09] MEDS: DOCUSATE SODIUM 100 MG/10 ML UDC OG-TUBE SCH ×2 (08:20→20:21)
[2018-01-09] MEDS: ASPIRIN EC 81 MG TABEC PO SCH (08:21)
[2018-01-09] MEDS: PANTOPRAZOLE SOD 40 MG DELAYED RELEASE TAB PO SCH (08:21)
[2018-01-09] MEDS: guaiFENesin E.R. 600 MG TAB PO SCH (08:21)
[2018-01-09] MEDS: MULTIVITAMIN TAB PO SCH (08:21)
[2018-01-09] MEDS ORDERED: ALBUMIN 25% INJ 50 ML IV ONE (10:00)
[2018-01-09] MEDS ORDERED: RESP: ALBUTEROL 2.5 MG/3 ML NEB (PRN) NEB (10:00)
[2018-01-09] MEDS ORDERED: POTASSIUM CHLORIDE 20 MEQ PWD PACKET G-TUBE ONE (10:00)
[2018-01-09] MEDS ORDERED: FUROSEMIDE 40 MG/4 ML VIAL IV PUSH ONE (10:00)
--- NOTE | 2018-01-09 10:37 | HHI.CCPN ---
Subjective Remarks/Hospital Course 01/01: 72-year-old gentleman with history of hypertension, hyperlipidemia and previous CVA, COPD, now newly diagnosed with anaplastic large cell non-Hodgkin' s lymphoma now transferred from [facility] on 12/23 for further treatment. On 12/25 patient received chemotherapy -CHOP regimen. Hospitalization further significant for PEG placement due to malnutrition and lack of appetite and thoracentesis for pleural effusion. Patient was being followed by pulmonary, cardiology and hematology services. Over the night patient had increased O2 requirements with high tube feed residual and concern for aspiration. A rapid response was called earlier this afternoon for worsening hypoxia despite NRM. Patient was emergently intubated and upon intubation he was found to have significant amount of tube feeds in the airway. An NG tube was placed on suction with 750 cc suctioned from the stomach. Patient was started on midazolam and fentanyl drips and phenylephrine for BP support. Patient was seen immediately on ICU arrival, 100% O2 with SPO2 100%. Patient requires 20 mics per minute of phenylephrine infusion. He is intubated and sedated, unresponsive. 01/02: No events over the night. Patient remains critically ill. He is currently sedated and intubated. He remains on phenylephrine at 80 mics per minute. FiO2 down to 0.6. T-max 98.6, I/O 1550/400. 01/03: Patient did well over the night. Norepinephrine weaned off. FiO2 currently at 0.5. Patient remains on a PEEP of 10. Sedation accomplished with propofol and fentanyl. Tmax 98.4. 01/04: Multiple episodes of diarrhea overnight. No C. difficile sent. Urine output decreased, 300 mL's over last 12 hours. Patient does not require any pressors, sedation is maintained with propofol at 30 and fentanyl at 150. During sedation vacation patient moves all extremities, agitated, but does not follow commands. Currently he is sedated and intubated. Morning chest x-ray reviewed, slight improvement in bibasilar infiltrates. 01/05: No events over the night. T-max of 98.6. Urine output 550 mL's over the last 24 hours. Ventilator on 0.4 FiO2. Sedation was stopped this morning, patient agitated moving all extremities but not following commands. Morning chest x-ray reviewed, no significant change compared to yesterday's, ET tube approximately 7 cm above clem. 01/06: Patient remains afebrile, on no pressors. Oxygenation down to 0.4 FiO2, but PEEP remains at 10. Trickle feeds started yesterday, still having residuals. Patient remains on low-dose propofol and fentanyl for sedation. Morning chest x-ray reviewed, still with bibasilar opacities, unchanged. 01/07: Remains sedated, orally intubated on mechanical ventilation. Fentanyl at 150 mics per minute decreased to 50 mics per minute. Abdomen remains distended. Tolerating tube feeds at 20 cc/h with residual 60 cc. 01/08: Sedated, orally intubated on mechanical ventilation. Had large amount of BM last night following Relistor. On tube feeds at 20 cc per hour. Subjective 01/09: Currently on propofol drip at 40 mcg/kg/min. Afebrile. GJ tube per IR yesterday. Tube feeds were restarted. at bedside. Continue to diuresis furosemide/albumin Objective Vital Signs Date Time Temp Pulse Resp B/P (MAP) Pulse Ox O2 Delivery O2 Flow Rate FiO2 01/09/18 08:00 40 01/09/18 08:00 97.6 86 18 138/77 (97) 97 01/08/18 09:17 Ventilator Intake and Output 01/09/18 01/09/18 01/10/18 08:00 16:00 00:00 Intake Total 504 ml Output Total 1700 ml Balance -1196 ml Result Diagram: 01/09/18 0410 01/09/18 0410 Other Results Microbiology Date/Time Source Procedure Growth Status 01/01/18 17:57 Blood Peripheral Aerobic Blood Culture - Final NO GROWTH IN 5 DAYS Complete 01/01/18 17:57 Blood Peripheral Anaerobic Blood Culture - Final NO GROWTH IN 5 DAYS Complete 12/28/17 12:15 Fluid Pleural Fluid Fungal Smear - Final NO FUNGAL ELEMENTS SEEN. Resulted 12/28/17 12:15 Fluid Pleural Fluid Fungal Culture - Preliminary NO GROWTH IN 1 WEEK Resulted 01/01/18 17:15 Sputum Endotracheal Gram Stain - Final Complete 01/01/18 17:15 Sputum Endotracheal Sputum Culture - Final HEAVY GROWTH NORMAL RESPIRATORY LISA Complete 01/01/18 17:15 Urine Catheterized Urine Urine Culture - Final NO GROWTH IN 48 HOURS. Complete Imaging Last Impressions Chest X-Ray 01/09/18 0600 Signed Impressions: Service Date/Time: Tuesday, January 09, 2018 05:20 - CONCLUSION: Stable bilateral airspace disease and probable small pleural effusions. Kaveh Perales MD Gastrostomy Tube Change 01/08/18 0000 Signed Impressions: Service Date/Time: Monday, January 08, 2018 14:35 - CONCLUSION: Conversion of the patient's existing gastrostomy tube to a gastrojejunostomy tube. Siva Bean Jr., MD Renal Ultrasound 01/05/18 0000 Signed Impressions: Service Date/Time: Friday, January 05, 2018 08:00 - CONCLUSION: Echogenic kidneys suggesting medical renal disease. Some ascites. Bilateral pleural effusions. Lee Mijares MD Head CT 01/05/18 0000 Signed Impressions: Service Date/Time: Friday, January 05, 2018 11:41 - CONCLUSION: 1. No acute abnormality is seen. 2. Old lacunar infarct at the left basal ganglia. 3. Fluid in the mastoid air cells on the right. Andres Valero MD Small Bowel X-Ray 01/03/18 0000 Signed Impressions: Service Date/Time: December 14:27 - CONCLUSION: 1. No leakage identified on injection through gastrostomy tube. No small bowel obstruction or significant dilatation. Elbert Carrasquillo MD Abdomen/Pelvis CT 01/02/18 0000 Signed Impressions: Service Date/Time: Tuesday, January 02, 2018 21:38 - CONCLUSION: 1. Free intraperitoneal air of unknown etiology. On the supine view most of the free air is around the gastrostomy tube and tip of the nasogastric tube as discussed above. 2. Mild to moderate ascites. Moderate anasarca. 3. Moderate bilateral effusions with basilar atelectasis. 4. Nonobstructing right renal calculus. Hay catheter in bladder. Elbert Carrasquillo MD Chest CT 12/30/17 0000 Signed Impressions: Service Date/Time: Saturday, December 30, 2017 21:13 - CONCLUSION: 1. Free intraperitoneal air in the upper abdomen of uncertain etiology. There is a gastrostomy present. 2. Moderate bilateral pleural effusions with compressive atelectasis. Patchy air space consolidation in the right upper lobe. 3. Moderate anasarca and ascites. 4. Findings called to the floor at the time of dictation. Elbert Carrasquillo MD Chest Ultrasound 12/27/17 0000 Signed Impressions: Service Date/Time: December 21:39 - CONCLUSION: Large left pleural effusion and would be amenable to thoracentesis. Frandy was made on the overlying skin. Andres Parekh MD Bone Biopsy CT 12/25/17 1142 Signed Impressions: Service Date/Time: Monday, December 25, 2017 12:32 - CONCLUSION: 1. Uncomplicated CT guided bone marrow aspirate. 2. Uncomplicated CT guided bone marrow biopsy. Lee Mijares MD CT Angiography 12/25/17 0000 Signed Impressions: Service Date/Time: Monday, December 25, 2017 09:26 - CONCLUSION: 1. No CT evidence for pulmonary artery embolism. 2. Moderate to large bilateral pleural effusions with associated compressive atelectasis at the lung bases. 3. 8mm nodule in the right middle lobe. Followup CT examination may be performed at 6 months to document stability if this has not been evaluated previously. 4. Very mildly prominent mediastinal and hilar nodes and partially imaged upper abdominal lymphadenopathy in this patient with history of lymphoma. Miguel Ashton MD Objective Remarks General -72-year-old male currently orotracheally intubated HEENT - pupils are equal, reactive about 3 mm bilaterally, sclerae are anicteric , neck is supple, no rigidity, positive JVD, + LIJ CVC (01/01) -site remains clean, + ETT CV -RRR with ectopy. S1, S2 no S4. Without murmur Chest -coarse rhonchorous breath sounds bilaterally, no wheezes, good air entry , [id number] right chest -site remains clean Abdomen - soft, obese, appears non-tender, BS present, no hepatomegaly, no splenomegaly, + GJ tube Extremities - 2+ edema, + peripheral pulses, warm, no cyanosis Neuro - intubated, pupils equal and reactive, grimaces to pain but does not follow commands while on propofol drip. Urinary Catheter: Yes Assessment to: Continue Hay insert reason: ICU Pt Getting Diuretics Vascular Central Line Catheter: Yes Assessment to: Continue Date of Insertion: Jan 01, 2018 Line: Central Venous Catheter Side: Left Location: Internal, Jugular A/P Assessment and Plan Neuro/Psych: History of left basal ganglia CVA without residual Bilateral lower extremity neuropathy Currently a propofol drip at 40 mcg/kg/min for sedation/analgesia while intubated Goal of RA SS -[address] brain 01/05 revealed old left basal CVA. CV: Hypertension Dyslipidemia 2D echocardiogram revealed EF 65-70%. Tricuspid regurgitation. PA P 38 mmHg He is on aspirin 81 mg p.o. daily Resp: Acute hypoxic hypercapnic respiratory failure secondary to aspiration pneumonia Right middle lobe pulmonary nodule 8 mm recommend 6 month follow-up CT chest COPD [facility] 16/500/10/19/39 Ventilator bundle Patient written for budesonide/formoterol 160/4.5 2 puffs twice daily. Albuterol/ipratropium aerosols every 6 hours with albuterol aerosols every 2 hours as needed dyspnea On prednisone [address] Blevins/pulmonology is following GI: Status post GJ conversion by IR 01/08 Hypoalbuminemia Lansoprazole 30 mg daily for GI prophylaxis Docusate sodium/senna 1 tablet twice daily hour On February cholesterol 800 mg daily for anorexia Nutrition recommends vital 1.5 goal 60 cc an hour. This will be switched today : Hay catheter for accurate I's and O's in a critically ill patient Endo: Sliding scale insulin with not be allowed to maintain euglycemia/low regimen every 6 hours TSH is 1.18 Renal: Acute kidney injury likely secondary to sepsis/ATN Right-sided nephrolithiasis Urine eosinophils negative. Renal ultrasound reveals medical renal disease and prior CT abdomen/pelvis revealed non-obstructing right renal stones. Followed by Dr. Carver/nephrology Avoid nephrotoxic medication Heme: Anaplastic ALK negative large cell lymphoma, received CHOP therapy on 12/25 Leukocytosis Normocytic anemia Neupogen discontinued 01/07. Followed by hematology ID: Switch to cefepime 2 g IV every 8 hours. Meropenem discontinued 01/08 Continue metronidazole 500 mg 3 times daily FEN: Hypernatremia Currently D5 water 20 cc an hour. Replace electrolytes as clinically indicated MSK: Sacral decubitus ulcer Wound care management Access Left IJ CVL placed 01/01 to present Right Duhdhl-a-Nzah placed 12/20/17 Prophylaxis -GI -lansoprazole -DVT -SCD/heparin subcu Level 3 follow-up Pascual Bran MD Jan 09, 2018 10:37
[2018-01-09] MEDS: CEFEPIME INJ 2,000 MG in SODIUM CHLORIDE 0.9% INJ 100 ML IV SCH ×2 (11:32→20:22)
--- NOTE | 2018-01-09 13:05 | PD.ONC.PN ---
Subjective Subjective Remarks Afebrile Per IMPLEMENTATION COORDINATOR, he is tolerating tube feeds after tube has been repositioned CPAP trials planned for later today Objective Data Date Time Temp Pulse Resp B/P (MAP) Pulse Ox O2 Delivery O2 Flow Rate FiO2 01/09/18 12:31 95 40 01/09/18 12:00 40 01/09/18 12:00 94 01/09/18 12:00 97.4 94 20 143/74 (97) 95 01/09/18 10:00 75 01/09/18 08:00 40 01/09/18 08:00 97.6 86 18 138/77 (97) 97 01/09/18 08:00 86 01/09/18 07:41 98 40 01/09/18 06:00 78 01/09/18 04:00 74 01/09/18 04:00 97.8 74 18 142/71 (94) 96 01/09/18 04:00 40 01/09/18 03:59 98 40 01/09/18 02:00 75 01/09/18 00:10 98 40 01/09/18 00:00 78 01/09/18 00:00 97.6 78 18 156/75 (102) 98 01/09/18 00:00 40 01/08/18 22:00 68 01/08/18 20:00 40 01/08/18 20:00 62 01/08/18 20:00 98 40 01/08/18 20:00 97.9 62 18 133/66 (88) 98 01/08/18 18:00 40 01/08/18 18:00 61 01/08/18 17:53 97 40 01/08/18 16:00 98.2 80 21 151/77 (101) 100 01/08/18 16:00 80 01/08/18 15:00 100 100 01/08/18 14:15 64 01/09/18 01/09/18 01/09/18 07:00 15:00 23:00 Intake Total 504 ml Output Total 1700 ml Balance -1196 ml Result Diagram: 01/09/1840901/09/18409 Laboratory Results Laboratory Tests Test 01/09/18 04:10 White Blood Count 11.2 TH/MM3 Red Blood Count 3.09 MIL/MM3 Hemoglobin 8.5 GM/DL Hematocrit 25.6 % Mean Corpuscular Volume 82.8 FL Mean Corpuscular Hemoglobin 27.6 PG Mean Corpuscular Hemoglobin Concent 33.3 % Red Cell Distribution Width 17.9 % Platelet Count 181 TH/MM3 Mean Platelet Volume 9.7 FL CBC Comment AUTO DIFF Differential Total Cells Counted 100 Neutrophils % (Manual) 90 % Band Neutrophils % 9 % Lymphocytes % 1 % Neutrophils # (Manual) 11.1 TH/MM3 Differential Comment FINAL DIFF MANUAL Platelet Estimate NORMAL Platelet Morphology Comment NORMAL Target Cells 1+ Keratocytes 1+ Blood Urea Nitrogen 53 MG/DL Creatinine 2.71 MG/DL Random Glucose 91 MG/DL Albumin 2.2 GM/DL Calcium Level 7.9 MG/DL Phosphorus Level 3.7 MG/DL Sodium Level 146 MEQ/L Potassium Level 3.8 MEQ/L Chloride Level 113 MEQ/L Carbon Dioxide Level 24.9 MEQ/L Anion Gap 8 MEQ/L Estimat Glomerular Filtration Rate 23 ML/MIN Imaging Studies Last 24 hours Impressions Chest X-Ray 01/09/18 0600 Signed Impressions: Service Date/Time: Tuesday, January 09, 2018 05:20 - CONCLUSION: Stable bilateral airspace disease and probable small pleural effusions. Kaveh Perales MD Administered Medications Medications (Trade) Dose Ordered Sig/Candace Route PRN Reason Start Time Stop Time Status Last Admin Dose Admin Sodium Chloride (NS Flush) 2 ml BID IV FLUSH 12/22/17 21:00 01/09/18 08:20 Ondansetron HCl (Zofran Inj) 4 mg Q6H PRN IVP NAUSEA OR VOMITING 12/22/17 18:15 01/01/18 10:02 Zolpidem Tartrate (Ambien) 5 mg HS PRN PO INSOMNIA 12/22/17 20:15 12/26/17 20:30 Megestrol Acetate (Megace Liq) 800 mg DAILY PO 12/23/17 09:00 01/09/18 08:20 Budesonide/ Formoterol Fumarate (Symbicort 160-4.5 Mcg Inh) 1 puff Q12HR INH 12/22/17 21:00 01/01/18 08:53 Aspirin (Ecotrin Ec) 81 mg DAILY PO 12/23/17 09:00 01/09/18 08:21 Atorvastatin Calcium (Lipitor) 80 mg DAILY PO 12/23/17 09:00 Future Hold 01/08/18 08:32 Multivitamins (Theragran) 1 tab DAILY PO 12/23/17 09:00 01/09/18 08:21 Heparin Sodium (Porcine) (Heparin Central Flush) 250 units UNSCH PRN IV FLUSH SEE PROTOCOL 12/22/17 20:30 12/27/17 20:27 Guaifenesin/ Dextromethorphan (Robitussin Dm 200-20 Mg/10 ml Liq) 10 ml Q4H PRN PO cough interfering with rest 12/22/17 21:00 12/26/17 18:27 Calcium Carbonate (Tums Chew) 500 mg Q12HR PRN CHEW indigestion 12/31/17 16:15 01/01/18 05:27 Prednisone (Deltasone) 10 mg BID PO 01/01/18 21:00 01/09/18 08:20 Chlorhexidine Gluconate (Peridex 0.12% Liq) 15 ml BID@08,20 MT 01/01/18 20:00 01/09/18 08:20 Norepinephrine Bitartrate 250 ml @ 7.5 mls/hr TITRATE PRN IV Blood pressure management 01/01/18 17:00 01/02/18 21:09 Propofol 100 ml @ 2.757 mls/ hr TITRATE PRN IV SEDATION 01/02/18 11:15 01/09/18 06:58 Dextrose 1,000 ml @ 20 mls/hr Q24H IV 01/04/18 07:00 01/08/18 18:00 Docusate Sodium (Colace Liq) 100 mg Q12HR OG-TUBE 01/07/18 21:00 01/09/18 08:20 Cefepime HCl 2000 mg/Sodium Chloride 100 ml @ 200 mls/hr Q12H IV 01/08/18 22:00 01/09/18 11:32 Metronidazole (Flagyl) 500 mg Q8H PO 01/08/18 22:00 01/09/18 05:18 Objective Remarks GENERAL: Elderly male resting in bed intubated and sedated SKIN: Warm and dry. HEAD: Normocephalic. EYES: No injection or drainage. NECK: Supple, trachea midline. CARDIOVASCULAR: Regular rate and rhythm without murmurs. RESPIRATORY: Clear anteriorly. GASTROINTESTINAL: Abdomen soft, non-tender, nondistended. EXTREMITIES: No cyanosis. 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 Continue to monitor CBC. 01/08: monitor CBC, WBC is recovered. 01/07: Continue neupogen x 1 more day. Monitor CBC. Transfuse 1 unit packed red blood cells if hemoglobin trending down tomorrow. CXR shows worsening disease. Abx per ID, Vent mgmt by area sales manager. 01/06: Patient no longer neutropenic. Continue Neupogen today. Monitor CBC. 01/05: Noted white blood cells minimally improved. Continue Neupogen for now. Await results from CT brain. Supportive care. 01/04: remains on vent. Off pf pressors. Pancytopenia with Neutropenia. Continue neupogen. Vent management per Beauty Culturist. Extensive d/w and DIL ( IMPLEMENTATION COORDINATOR) . answered their questions. Continue maximal support. 01/03: Continue Neupogen. Transfuse 1 unit packed red blood cells today for hemoglobin of 7.5. Monitor CBC. 01/02: patient remains intubated, sedated. start Neupogen for neutropenia + infection 01/01: patient in respiratory failure. intubated and transferring to intensive care. 12/31: C. difficile negative. Bone marrow biopsy shows no lymphoma involvement. Cytology from thoracentesis pending. Transfuse 1 unit PRBC for symptomatic with hgb 7.7. Patient would benefit from inpatient rehab for strengthening 12/28: continue solu-medrol. await thoracentesis. consult OT. 12/27: start Solu-medrol 40mg IV q 6. consult pulmonology for worsening infiltrates, pleural effusions. monitor CBC, counts dropping. 12/26: CT chest shows Bilateral Pl effusion. Continue aggressive diuresis. Had CHOP C1D1 yesterday. Tolerated well. Next chemo in 3 weeks as outpt. Continue allopurinol and prednisone. 12/25: CTA shows no PE. +LAD, PE. dyspnea likely d/t lymphoma. will give Solu- medrol 1g IV and start CHOP today. Anaplastic large cell, non-Hodgkin's lymphoma, at least stage III. --unclear whether he has any B symptoms, but this could be most likely given that he has significant weight loss, which is one of the symptoms of lymphoma. --Leukocytosis, anemia and neutrophilia, most likely due to bone marrow involvement by the lymphoma until proven otherwise. (2) Renal insufficiency ICD Codes: N28.9 - Disorder of kidney and ureter, unspecified Plan: --Nephrology following. --unclear etiology Assessment 72y/o male with newly diagnosed anaplastic large cell NHL. h/o COPD, hypercholesterolemia, hypertension, history of previous stroke. HPI: started 8 weeks ago with a cough mixed with greenish phlegm and shortness of breath. CT cap showed diffuse lymphadenopathy on both sides of the diaphragm. PET scan showed increased uptake in the lymph nodes involving the neck, chest, mediastinal and hilar area, retroperitoneum and pelvic lymph nodes. biopsy of the left neck mass=anaplastic large cell NHL echocardiogram, LVEF=55-70%. MUGA scan, showed EF of 60%. Attending Statement The exam, history, and the medical decision-making described in the above note were completed with the assistance of the mid-level provider. I reviewed and agree with the findings presented. I attest that I had a [id number] encounter with the patient on the same day, and personally performed and documented my assessment and findings in the medical record. Sedated and on Vent. Has fluid overload , Lasix and albumin. Renal to follow. Creatinine is rising but making good amount of urine, Recommend to hold sedation and see how he does PEG change to G-J tube and now doing well on TF Had large BM yesterday after laxative per and his belly went down. Per he appears ``comfortable``after that. Had a long discussion with again. Will hold further chemo till he recovers from this. Tawanna Hugo Jan 09, 2018 13:05 Josy Suarez MD Jan 09, 2018 23:32
--- NOTE | 2018-01-09 14:34 | HHI.NPPN ---
Subjective History of Present Illness 72-year-old male with history of large cell lymphoma, acute renal failure, respiratory failure on ventilator Objective Data Data 01/09/18 01/10/18 19:00 07:00 # Bowel Movements 0 Vital Signs Date Time Temp Pulse Resp B/P (MAP) Pulse Ox O2 Delivery O2 Flow Rate FiO2 01/09/18 12:31 95 40 01/09/18 12:00 40 01/09/18 12:00 94 01/09/18 12:00 97.4 94 20 143/74 (97) 95 01/09/18 10:00 75 01/09/18 08:00 40 01/09/18 08:00 97.6 86 18 138/77 (97) 97 01/09/18 08:00 86 01/09/18 07:41 98 40 01/09/18 06:00 78 01/09/18 04:00 74 01/09/18 04:00 97.8 74 18 142/71 (94) 96 01/09/18 04:00 40 01/09/18 03:59 98 40 01/09/18 02:00 75 01/09/18 00:10 98 40 01/09/18 00:00 78 01/09/18 00:00 97.6 78 18 156/75 (102) 98 01/09/18 00:00 40 01/08/18 22:00 68 01/08/18 20:00 40 01/08/18 20:00 62 01/08/18 20:00 98 40 01/08/18 20:00 97.9 62 18 133/66 (88) 98 01/08/18 18:00 40 01/08/18 18:00 61 01/08/18 17:53 97 40 01/08/18 16:00 98.2 80 21 151/77 (101) 100 01/08/18 16:00 80 01/08/18 15:00 100 100 -: 01/09/18 0410 01/09/18 0410 Physical Exam General Appearance: Well Developed Neck Neck Exam: Neck Supple Pulmonary Resp Exam: Rhonchi Cardiology CV Exam: Regular, Normal Sinus Rhythm Gastrointestinal/Abdomen GI Exam: Soft, Non-Tender, Bowel Sounds Present Extremeties Extremities Exam: Moderate Edema Assessment/Plan Problem List: (1) Acute renal failure ICD Codes: N17.9 - Acute kidney failure, unspecified Status: Acute Plan: he has sepsis contributing to ARF FeNa low <1 edema worse Urine output 3 L given Lasix Cr 2.7 higher Give Albumin with Lasix this afternoon Na 144 improved Continue to observe for recovery Avoid nephrotoxic agent Monitor BMP 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
[2018-01-09] MEDS ORDERED: ALBUMIN 25% INJ 100 ML IV ONE (15:30)
[2018-01-09] MEDS ORDERED: FUROSEMIDE 20 MG/2 ML VIAL IV PUSH ONE (15:30)
--- NOTE | 2018-01-09 15:53 | HHI.IDPN ---
Note Infectious Disease Note ID xcover for . Overnight events reviewed with RN. Patient on ventilator. Opens eyes. Moves extremities. Blood pressure stable. No fever. No rash No diarrhea Sputum culture normal resp david. WBC improving. 72-year-old white male who was diagnosed with lymphoma. The patient was noted to have become ill 2 months ago. He was noted to have cough and he was given 3 rounds of oral antibiotics without improvement of the cough. Subsequent workup revealed mediastinal adenopathy and other areas of adenopathy, and a biopsy of the lesion of the neck came back showing lymphoma. During his stay at [facility], he had no fever. He was given antibiotics. An Infusaport was placed on 12/20 for anticipated chemotherapy. PAST MEDICAL HISTORY: Stage IIIB anaplastic large cell lymphoma, COPD, hypertension, hyperlipidemia, history of CVA without residual deficits, nonsustained V-tach at [facility], neuropathy of the lower extremities, back surgery, Infusaport placement on 12/20/2017. ALLERGIES: HYDROCODONE. Vital Signs Date Time Temp Pulse Resp B/P (MAP) Pulse Ox O2 Delivery O2 Flow Rate FiO2 01/08/18 18:00 40 01/08/18 18:00 61 01/08/18 17:53 97 40 01/08/18 16:00 98.2 80 21 151/77 (101) 100 01/08/18 16:00 80 01/08/18 15:00 100 100 01/08/18 14:15 64 01/08/18 12:52 98 40 01/08/18 12:00 97.6 59 18 156/72 (100) 98 01/08/18 12:00 64 01/08/18 12:00 40 01/08/18 10:00 59 01/08/18 09:17 100 Ventilator 40 01/08/18 09:10 100 40 01/08/18 08:00 67 01/08/18 08:00 97.5 67 18 135/69 (91) 98 01/08/18 08:00 40 01/08/18 07:30 98 Mechanical Ventilator 40 01/08/18 06:00 64 01/08/18 04:18 98 40 01/08/18 04:00 97.5 69 18 150/77 (101) 98 01/08/18 04:00 69 01/08/18 04:00 40 01/08/18 02:00 79 01/08/18 01:34 99 40 01/08/18 00:00 98.2 81 18 119/65 (83) 99 01/08/18 00:00 81 01/08/18 00:00 40 01/07/18 22:00 69 Microbiology Date/Time Source Procedure Growth Status 01/01/18 17:57 Blood Peripheral Aerobic Blood Culture - Final NO GROWTH IN 5 DAYS Complete 01/01/18 17:57 Blood Peripheral Anaerobic Blood Culture - Final NO GROWTH IN 5 DAYS Complete 12/28/17 12:15 Fluid Pleural Fluid Fungal Smear - Final NO FUNGAL ELEMENTS SEEN. Resulted 12/28/17 12:15 Fluid Pleural Fluid Fungal Culture - Preliminary NO GROWTH IN 1 WEEK Resulted 01/01/18 17:15 Sputum Endotracheal Gram Stain - Final Complete 01/01/18 17:15 Sputum Endotracheal Sputum Culture - Final HEAVY GROWTH NORMAL RESPIRATORY DAVID Complete 01/01/18 17:15 Urine Catheterized Urine Urine Culture - Final NO GROWTH IN 48 HOURS. Complete Microbiology Last Impressions Chest X-Ray 01/09/18 0600 Signed Impressions: Service Date/Time: Tuesday, January 09, 2018 05:20 - CONCLUSION: Stable bilateral airspace disease and probable small pleural effusions. Kaveh Perales MD Gastrostomy Tube Change 01/08/18 0000 Signed Impressions: Service Date/Time: Monday, January 08, 2018 14:35 - CONCLUSION: Conversion of the patient's existing gastrostomy tube to a gastrojejunostomy tube. Siva Bean Jr., MD Renal Ultrasound 01/05/18 0000 Signed Impressions: Service Date/Time: Friday, January 05, 2018 08:00 - CONCLUSION: Echogenic kidneys suggesting medical renal disease. Some ascites. Bilateral pleural effusions. Lee Mijares MD Head CT 01/05/18 0000 Signed Impressions: Service Date/Time: Friday, January 05, 2018 11:41 - CONCLUSION: 1. No acute abnormality is seen. 2. Old lacunar infarct at the left basal ganglia. 3. Fluid in the mastoid air cells on the right. Andres Valero MD Small Bowel X-Ray 01/03/18 0000 Signed Impressions: Service Date/Time: December 14:27 - CONCLUSION: 1. No leakage identified on injection through gastrostomy tube. No small bowel obstruction or significant dilatation. Elbert Carrasquillo MD Abdomen/Pelvis CT 01/02/18 0000 Signed Impressions: Service Date/Time: Tuesday, January 02, 2018 21:38 - CONCLUSION: 1. Free intraperitoneal air of unknown etiology. On the supine view most of the free air is around the gastrostomy tube and tip of the nasogastric tube as discussed above. 2. Mild to moderate ascites. Moderate anasarca. 3. Moderate bilateral effusions with basilar atelectasis. 4. Nonobstructing right renal calculus. Hay catheter in bladder. Elbert Carrasquillo MD Chest CT 12/30/17 0000 Signed Impressions: Service Date/Time: Saturday, December 30, 2017 21:13 - CONCLUSION: 1. Free intraperitoneal air in the upper abdomen of uncertain etiology. There is a gastrostomy present. 2. Moderate bilateral pleural effusions with compressive atelectasis. Patchy air space consolidation in the right upper lobe. 3. Moderate anasarca and ascites. 4. Findings called to the floor at the time of dictation. Elbert Carrasquillo MD Chest Ultrasound 12/27/17 0000 Signed Impressions: Service Date/Time: December 21:39 - CONCLUSION: Large left pleural effusion and would be amenable to thoracentesis. Frandy was made on the overlying skin. Andres Parekh MD Bone Biopsy CT 12/25/17 1142 Signed Impressions: Service Date/Time: Monday, December 25, 2017 12:32 - CONCLUSION: 1. Uncomplicated CT guided bone marrow aspirate. 2. Uncomplicated CT guided bone marrow biopsy. Lee Mijares MD CT Angiography 12/25/17 0000 Signed Impressions: Service Date/Time: Monday, December 25, 2017 09:26 - CONCLUSION: 1. No CT evidence for pulmonary artery embolism. 2. Moderate to large bilateral pleural effusions with associated compressive atelectasis at the lung bases. 3. 8mm nodule in the right middle lobe. Followup CT examination may be performed at 6 months to document stability if this has not been evaluated previously. 4. Very mildly prominent mediastinal and hilar nodes and partially imaged upper abdominal lymphadenopathy in this patient with history of lymphoma. Miguel Ashton MD PHYSICAL EXAMINATION: GENERAL: On the ventilator. Sedated. HEENT: No icterus. No conjunctival erythema. NECK: Supple. No adenopathy. No swelling. LUNGS: Decreased breath sounds bilateral. HEART: Regular S1 and S2. No murmurs, rubs or gallops. ABDOMEN: Markedly diminished bowel sounds, soft. EXTREMITIES: No clubbing or cyanosis, 1+ edema of the extremities. SKIN: No rash. NEUROLOGIC: Opens eyes spontaneously, moves all 4 extremities. PSYCHIATRIC: Unable to assess. IV line sites with no e.o infection. IMPRESSION: 1. Pneumonia. Bibasilar lung infiltrates. history of Aspiration with decline in respiratory status. 2. Acute respiratory failure. Intubated on the ventilator. 3. Bilateral pleural effusions. Post thoracentesis. 4. Lymphoma. Treated with chemotherapy. 5. Neutropenia postchemotherapy. White blood cell count remains significantly depressed. Patient post chemotherapy. Patient now has pancytopenia. 5. Decreased nutrition in patient with anorexia and now post percutaneous endoscopic gastrostomy placement. Tube feeds placed on hold because of concern for aspiration 6. Acute renal failure. RECOMMENDATIONS: Continue Cefepime IV Continue Flagyl po or peg/J tube. Component of fluid overload. Follow cultures Follow clinically. ellen patient in room. ellen hughes RN. Mandie Briggs MD Jan 09, 2018 15:53
[2018-01-09] MEDS: ARTIFICIAL TEARS OPTH SOLN 15 ML BTL EACH EYE SCH ×2 (16:07→20:22)
[2018-01-09] MEDS: HEPARIN SODIUM - SQ 10,000 UNITS/ML VIAL SQ SCH ×2 (16:08→20:23)
[2018-01-09] MEDS: RESP: ALBUTEROL 2.5 MG/IPRATROPIUM 0.5 MG NEB (SCH) NEB ×2 (16:18→19:31)
--- NOTE | 2018-01-09 18:39 | HHI.PR ---
Subjective Remarks Was intubated on 01/01 for aspiration and respiratory failure. Now on FIO2 40 % and PEEP at 5.On CPAP but very lethargic. X ray chest shows Bilat infiltrates. On antibiotics. Had J tube last PM. On Diprivan. Objective Vital Signs Date Time Temp Pulse Resp B/P (MAP) Pulse Ox O2 Delivery O2 Flow Rate FiO2 01/09/18 18:00 114 01/09/18 16:27 94 40 01/09/18 16:22 40 01/09/18 16:00 97.8 104 22 137/70 (92) 94 01/09/18 16:00 104 01/09/18 16:00 40 01/09/18 14:00 92 01/09/18 12:31 95 40 01/09/18 12:00 40 01/09/18 12:00 94 01/09/18 12:00 97.4 94 20 143/74 (97) 95 01/09/18 10:00 75 01/09/18 08:00 40 01/09/18 08:00 97.6 86 18 138/77 (97) 97 01/09/18 08:00 86 01/09/18 07:41 98 40 01/09/18 06:00 78 01/09/18 04:00 74 01/09/18 04:00 97.8 74 18 142/71 (94) 96 01/09/18 04:00 40 01/09/18 03:59 98 40 01/09/18 02:00 75 01/09/18 00:10 98 40 01/09/18 00:00 78 01/09/18 00:00 97.6 78 18 156/75 (102) 98 01/09/18 00:00 40 01/08/18 22:00 68 01/08/18 20:00 40 01/08/18 20:00 62 01/08/18 20:00 98 40 01/08/18 20:00 97.9 62 18 133/66 (88) 98 I/O 01/08/18 01/08/18 01/08/18 01/09/18 01/09/18 01/09/18 07:00 15:00 23:00 07:00 15:00 23:00 Intake Total 1107 ml 1135 ml 504 ml 150 ml 858 ml Output Total 950 ml 1300 ml 1700 ml 2000 ml Balance 157 ml -165 ml -1196 ml 150 ml -1142 ml IV Total 666 ml 1035 ml 300 ml 150 ml 340 ml Tube Feeding 141 ml 40 ml 84 ml 518 ml Tube Irrigant 60 ml Other 300 ml 120 ml Output Urine Total 950 ml 1300 ml 1700 ml 2000 ml # Bowel Movements 1 1 1 0 3 Result Diagram: 01/09/18 0410 01/09/18 0410 Procedures PEG tube placement. Bone Marrow Biopsy 12/25/17 Objective Remarks General appearance: This elderly white male is averagely built, on vent support. HEENT: Head normocephalic. Pupils reactive. Sclerae were clear Ears: No inflammation. Throat was clear. Neck: No bruits or thyroid enlargement or lymphadenopathy. Chest: Distant breath sounds with expiratory wheezes in the upper chest and a few crackles at both lung bases. Cardiovascular: The heart sounds are regular, S1 and S2. No murmur. No S3. Abdomen: Is soft, benign. No masses. Extremities: No edema. Pt is sedated.Lethargic. Assessment and Plan Assessment and Plan IMPRESSION: 1. Bibasilar pleural effusions with atelectasis. 2. History of hypertension. 3. Hyperlipidemia. 4. COPD, emphysema. 5. History of Anaplastic NHL . 6. Respiratory Failure Plan : 1. Cont Antibiotics per ID 2 Wean FIo2 to keep sat >92 3. Cont Solumedrol 40 mg BID 4. Nebs qid , duoneb. 5.CPAP 5/15, FIO2 40 % till 7 PM 6.A/C Rate 10 at HS 7. Stop sedation 8. Mucomyst 10 % , 2 CC q8h Katiuska Blevins MD Jan 09, 2018 18:39
[2018-01-09] MEDS: LANSOPRAZOLE SOLUTAB 30 MG TAB G-TUBE SCH (20:21)
[2018-01-10] VITALS (16 sets, daily range): BP systolic 104–132; BP diastolic 58–71; PULSE 68–116; RESP 19–34; TEMP 98–99.3; O2SAT 92–100
[2018-01-10] MEDS: PROPOFOL 1000 MG/100 ML INJ 100 ML IV PRN ×2 (01:58→09:22)
[2018-01-10 04:38] LABS: HEMATOCRIT 26.1 % (39.0-51.0); HEMOGLOBIN 8.8 GM/DL (13.0-17.0); MEAN CELL VOLUME 83.1 FL (80.0-100.0); MEAN CORPUSCULAR HEMOGLOBIN 28.1 PG (27.0-34.0); MEAN CORPUSCULAR HGB CONC 33.8 % (32.0-36.0); MEAN PLATELET VOLUME 9.8 FL (7.0-11.0); PLATELET COUNT 229 TH/MM3 (150-450); RED BLOOD COUNT 3.15 MIL/MM3 (4.50-5.90); RED CELL DISTRIBUTION WIDTH 18.2 % (11.6-17.2); WHITE BLOOD COUNT 10.5 TH/MM3 (4.0-11.0)
[2018-01-10] MEDS: ARTIFICIAL TEARS OPTH SOLN 15 ML BTL EACH EYE SCH ×3 (04:48→20:48)
[2018-01-10 05:04] LABS: ALT (GPT) 21 U/L (12-78); AST (GOT) 30 U/L (15-37); BICARBONATE 23.8 MEQ/L (21.0-32.0); BLOOD UREA NITROGEN 59 MG/DL (7-18); CALCIUM 7.6 MG/DL (8.5-10.1); CHLORIDE 116 MEQ/L (98-107); CREATININE 3.07 MG/DL (0.60-1.30); GLOMERULAR FILTRATION RATE 20 ML/MIN (>89); GLUCOSE,RANDOM 147 MG/DL (74-106); MAGNESIUM 2.4 MG/DL (1.5-2.5); PHOSPHORUS 3.5 MG/DL (2.5-4.9); SODIUM (NA) 148 MEQ/L (136-145)
[2018-01-10 05:07] LABS: ALKALINE PHOSPHATASE 109 U/L (45-117); TOTAL BILIRUBIN ADULT 0.5 MG/DL (0.2-1.0); TOTAL PROTEIN 4.8 GM/DL (6.4-8.2)
[2018-01-10] MEDS: metroNIDAZOLE 500 MG TAB PO SCH ×3 (05:34→20:43)
[2018-01-10] MEDS: HEPARIN SODIUM - SQ 10,000 UNITS/ML VIAL SQ SCH ×3 (05:34→20:43)
[2018-01-10] MEDS: INSULIN ASPART SUPPLEMENTAL SCALE SQ SCH ×4 (05:35→17:55)
[2018-01-10] MEDS: DOCUSATE SODIUM 100 MG/10 ML UDC OG-TUBE SCH ×2 (07:31→20:48)
[2018-01-10] MEDS: MEGESTROL ACETATE SUSP 400 MG/10 ML CUP PO SCH (07:32)
[2018-01-10 07:34] LABS: BANDS 6 % (0-6); LYMPHOCYTES 2 % (9-44); MONOCYTES 1 % (0-8); NEUTROPHIL # MANUAL DIFF 10.2 TH/MM3 (1.8-7.7); POLYS (SEG NEUTROPHILS) 91 % (16-70)
[2018-01-10 07:35] LABS: DOHLE BODIES PRESENT (NONE SEEN)
[2018-01-10] MEDS: CHLORHEXIDINE 0.12% (ORAL KIT) 15 ML CUP MT SCH ×2 (08:00→20:00)
[2018-01-10] MEDS: RESP: ALBUTEROL 2.5 MG/IPRATROPIUM 0.5 MG NEB (SCH) NEB ×3 (08:46→19:39)
[2018-01-10] MEDS: SODIUM CHLORIDE 0.9% FLUSH 10 ML FLUSH IV FLUSH SCH ×2 (09:00→20:47)
[2018-01-10] MEDS: ASPIRIN EC 81 MG TABEC PO SCH (09:00)
[2018-01-10] MEDS: BUDESONIDE-FORMOTEROL 160/4.5 MCG INHALER INH SCH ×2 (09:00→20:47)
[2018-01-10] MEDS: CEFEPIME INJ 2,000 MG in SODIUM CHLORIDE 0.9% INJ 100 ML IV SCH ×2 (09:22→20:43)
[2018-01-10] MEDS: predniSONE 10 MG TAB PO SCH ×2 (09:22→20:43)
[2018-01-10] MEDS: LANSOPRAZOLE SOLUTAB 30 MG TAB G-TUBE SCH ×2 (09:23→20:44)
[2018-01-10] MEDS: MULTIVITAMIN TAB PO SCH (09:23)
[2018-01-10] MEDS: DEXMEDETOMIDINE INJ 200 MCG in SODIUM CHLORIDE 0.9% INJ 50 ML IV PRN ×2 (11:11→13:16)
--- NOTE | 2018-01-10 12:15 | PD.ONC.PN ---
Subjective Subjective Remarks Afebrile overnight. patient intubated, and off sedation since early this AM. at bedside. Objective Data Date Time Temp Pulse Resp B/P (MAP) Pulse Ox O2 Delivery O2 Flow Rate FiO2 01/10/18 09:37 94 40 01/10/18 09:35 40 01/10/18 08:46 93 40 01/10/18 08:00 40 01/10/18 08:00 99.3 116 34 121/58 (79) 98 01/10/18 06:00 114 01/10/18 04:00 113 01/10/18 04:00 40 01/10/18 04:00 99.2 114 23 106/68 (81) 96 01/10/18 03:55 96 40 01/10/18 02:00 109 01/10/18 00:08 95 40 01/10/18 00:00 40 01/10/18 00:00 114 01/10/18 00:00 98.0 115 23 130/63 (85) 95 01/09/18 22:00 111 01/09/18 20:00 98 01/09/18 20:00 40 01/09/18 20:00 97.2 98 22 113/71 (85) 95 01/09/18 19:29 94 40 01/09/18 18:00 114 01/09/18 16:27 94 40 01/09/18 16:22 40 01/09/18 16:00 97.8 104 22 137/70 (92) 94 01/09/18 16:00 104 01/09/18 16:00 40 01/09/18 14:00 92 01/09/18 12:31 95 40 01/10/18 01/10/18 01/10/18 07:00 15:00 23:00 Intake Total 1180 ml Output Total 950 ml Balance 230 ml Result Diagram: 01/10/18 0418 01/10/188 Laboratory Results Laboratory Tests Test 01/10/18 04:18 White Blood Count 10.5 TH/MM3 Red Blood Count 3.15 MIL/MM3 Hemoglobin 8.8 GM/DL Hematocrit 26.1 % Mean Corpuscular Volume 83.1 FL Mean Corpuscular Hemoglobin 28.1 PG Mean Corpuscular Hemoglobin Concent 33.8 % Red Cell Distribution Width 18.2 % Platelet Count 229 TH/MM3 Mean Platelet Volume 9.8 FL CBC Comment AUTO DIFF Differential Total Cells Counted 100 Neutrophils % (Manual) 91 % Band Neutrophils % 6 % Lymphocytes % 2 % Monocytes % 1 % Neutrophils # (Manual) 10.2 TH/MM3 Differential Comment FINAL DIFF MANUAL Dohle Bodies PRESENT Platelet Estimate NORMAL Platelet Morphology Comment NORMAL Blood Urea Nitrogen 59 MG/DL Creatinine 3.07 MG/DL Random Glucose 147 MG/DL Total Protein 4.8 GM/DL Albumin 2.0 GM/DL Calcium Level 7.6 MG/DL Phosphorus Level 3.5 MG/DL Magnesium Level 2.4 MG/DL Alkaline Phosphatase 109 U/L Aspartate Amino Transf (AST/SGOT) 30 U/L Alanine Aminotransferase (ALT/SGPT) 21 U/L Total Bilirubin 0.5 MG/DL Sodium Level 148 MEQ/L Potassium Level 4.1 MEQ/L Chloride Level 116 MEQ/L Carbon Dioxide Level 23.8 MEQ/L Anion Gap 8 MEQ/L Estimat Glomerular Filtration Rate 20 ML/MIN Administered Medications Medications (Trade) Dose Ordered Sig/Candace Route PRN Reason Start Time Stop Time Status Last Admin Dose Admin Sodium Chloride (NS Flush) 2 ml BID IV FLUSH 12/22/17 21:00 01/09/18 20:22 Ondansetron HCl (Zofran Inj) 4 mg Q6H PRN IVP NAUSEA OR VOMITING 12/22/17 18:15 01/01/18 10:02 Zolpidem Tartrate (Ambien) 5 mg HS PRN PO INSOMNIA 12/22/17 20:15 12/26/17 20:30 Megestrol Acetate (Megace Liq) 800 mg DAILY PO 12/23/17 09:00 01/09/18 08:20 Budesonide/ Formoterol Fumarate (Symbicort 160-4.5 Mcg Inh) 1 puff Q12HR INH 12/22/17 21:00 01/01/18 08:53 Atorvastatin Calcium (Lipitor) 80 mg DAILY PO 12/23/17 09:00 Future Hold 01/08/18 08:32 Multivitamins (Theragran) 1 tab DAILY PO 12/23/17 09:00 01/10/18 09:23 Heparin Sodium (Porcine) (Heparin Central Flush) 250 units UNSCH PRN IV FLUSH SEE PROTOCOL 12/22/17 20:30 12/27/17 20:27 Guaifenesin/ Dextromethorphan (Robitussin Dm 200-20 Mg/10 ml Liq) 10 ml Q4H PRN PO cough interfering with rest 12/22/17 21:00 12/26/17 18:27 Calcium Carbonate (Tums Chew) 500 mg Q12HR PRN CHEW indigestion 12/31/17 16:15 01/01/18 05:27 Prednisone (Deltasone) 10 mg BID PO 01/01/18 21:00 01/10/18 09:22 Chlorhexidine Gluconate (Peridex 0.12% Liq) 15 ml BID@08,20 MT 01/01/18 20:00 01/10/18 08:00 Norepinephrine Bitartrate 250 ml @ 7.5 mls/hr TITRATE PRN IV Blood pressure management 01/01/18 17:00 01/02/18 21:09 Propofol 100 ml @ 2.757 mls/ hr TITRATE PRN IV SEDATION 01/02/18 11:15 01/10/18 09:22 Dextrose 1,000 ml @ 20 mls/hr Q24H IV 01/04/18 07:00 01/08/18 18:00 Docusate Sodium (Colace Liq) 100 mg Q12HR OG-TUBE 01/07/18 21:00 01/09/18 20:21 Cefepime HCl 2000 mg/Sodium Chloride 100 ml @ 200 mls/hr Q12H IV 01/08/18 22:00 01/10/18 09:22 Metronidazole (Flagyl) 500 mg Q8H PO 01/08/18 22:00 01/10/18 05:34 Lansoprazole (Prevacid Odt) 30 mg BID G-TUBE 01/09/18 21:00 01/10/18 09:23 Albuterol/ Ipratropium (Duoneb Neb) 1 ampule Q6HR WHILE AWAKE NEB NEB 01/09/18 14:00 01/10/18 08:46 Artificial Tears (Tears Naturale Opth Soln) 1 drop Q8HR EACH EYE 01/09/18 14:00 01/10/18 04:48 Heparin Sodium (Porcine) (Heparin Inj) 5,000 units Q8HR SQ 01/09/18 14:00 01/10/18 05:34 Dexmedetomidine HCl 200 mcg/ Sodium Chloride 52 ml @ 4.95 mls/hr TITRATE PRN IV SEDATION 01/10/18 11:00 01/10/18 11:11 Objective Remarks GENERAL: Intubated male, lying supine in bed with eyes closed. SKIN: Warm and dry. HEAD: Normocephalic. EYES: No injection or drainage. NECK: Supple, trachea midline. CARDIOVASCULAR: Regular rate and rhythm RESPIRATORY: anterior clark with occasional rhonchi GASTROINTESTINAL: Abdomen nondistended. EXTREMITIES: No cyanosis NEUROLOGICAL: intubated. blinks eyes when asked, squeezes left hand when asked, otherwise does not open eyes to speech, does not follow any other commands. 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 will hold chemotherapy until clinically improved. 01/09: Next cycle of CHOP chemo is due next week; we will likely hold this until he is more stable. Continue to monitor CBC. 01/08: monitor CBC, WBC is recovered. 01/07: Continue neupogen x 1 more day. Monitor CBC. Transfuse 1 unit packed red blood cells if hemoglobin trending down tomorrow. CXR shows worsening disease. Abx per ID, Vent mgmt by masonry contractor. 01/06: Patient no longer neutropenic. Continue Neupogen today. Monitor CBC. 01/05: Noted white blood cells minimally improved. Continue Neupogen for now. Await results from CT brain. Supportive care. 01/04: remains on vent. Off pf pressors. Pancytopenia with Neutropenia. Continue neupogen. Vent management per Support Analyst. Extensive d/w and DIL ( OBSTETRICS GYN) . answered their questions. Continue maximal support. 01/03: Continue Neupogen. Transfuse 1 unit packed red blood cells today for hemoglobin of 7.5. Monitor CBC. 01/02: patient remains intubated, sedated. start Neupogen for neutropenia + infection 01/01: patient in respiratory failure. intubated and transferring to intensive care. 12/31: C. difficile negative. Bone marrow biopsy shows no lymphoma involvement. Cytology from thoracentesis pending. Transfuse 1 unit PRBC for symptomatic with hgb 7.7. Patient would benefit from inpatient rehab for strengthening 12/28: continue solu-medrol. await thoracentesis. consult OT. 12/27: start Solu-medrol 40mg IV q 6. consult pulmonology for worsening infiltrates, pleural effusions. monitor CBC, counts dropping. 12/26: CT chest shows Bilateral Pl effusion. Continue aggressive diuresis. Had CHOP C1D1 yesterday. Tolerated well. Next chemo in 3 weeks as outpt. Continue allopurinol and prednisone. 12/25: CTA shows no PE. +LAD, PE. dyspnea likely d/t lymphoma. will give Solu- medrol 1g IV and start CHOP today. Anaplastic large cell, non-Hodgkin's lymphoma, at least stage III. --unclear whether he has any B symptoms, but this could be most likely given that he has significant weight loss, which is one of the symptoms of lymphoma. --Leukocytosis, anemia and neutrophilia, most likely due to bone marrow involvement by the lymphoma until proven otherwise. (2) Renal insufficiency ICD Codes: N28.9 - Disorder of kidney and ureter, unspecified Plan: --Nephrology following. --unclear etiology Assessment 72y/o male with newly diagnosed anaplastic large cell NHL. h/o COPD, hypercholesterolemia, hypertension, history of previous stroke. HPI: started 8 weeks ago with a cough mixed with greenish phlegm and shortness of breath. CT cap showed diffuse lymphadenopathy on both sides of the diaphragm. PET scan showed increased uptake in the lymph nodes involving the neck, chest, mediastinal and hilar area, retroperitoneum and pelvic lymph nodes. biopsy of the left neck mass=anaplastic large cell NHL echocardiogram, LVEF=55-70%. MUGA scan, showed EF of 60%. Attending Statement The exam, history, and the medical decision-making described in the above note were completed with the assistance of the mid-level provider. I reviewed and agree with the findings presented. I attest that I had a [id number] encounter with the patient on the same day, and personally performed and documented my assessment and findings in the medical record. On vent, Off of sedation. Still has fluid overlod, 3rd spacing from Hypoalbumenia. Creatinine is rising. d/w RN and at bedside. Susy La Jan 10, 2018 12:15 Josy Suarez MD Jan 10, 2018 21:24
[2018-01-10] MEDS: ASPIRIN 81 MG CHEW TAB CHEW SCH (13:12)
--- NOTE | 2018-01-10 14:28 | HHI.CCPN ---
Subjective Remarks/Hospital Course 01/01: 72-year-old gentleman with history of hypertension, hyperlipidemia and previous CVA, COPD, now newly diagnosed with anaplastic large cell non-Hodgkin' s lymphoma now transferred from [facility] on 12/23 for further treatment. On 12/25 patient received chemotherapy -CHOP regimen. Hospitalization further significant for PEG placement due to malnutrition and lack of appetite and thoracentesis for pleural effusion. Patient was being followed by pulmonary, cardiology and hematology services. Over the night patient had increased O2 requirements with high tube feed residual and concern for aspiration. A rapid response was called earlier this afternoon for worsening hypoxia despite NRM. Patient was emergently intubated and upon intubation he was found to have significant amount of tube feeds in the airway. An NG tube was placed on suction with 750 cc suctioned from the stomach. Patient was started on midazolam and fentanyl drips and phenylephrine for BP support. Patient was seen immediately on ICU arrival, 100% O2 with SPO2 100%. Patient requires 20 mics per minute of phenylephrine infusion. He is intubated and sedated, unresponsive. 01/02: No events over the night. Patient remains critically ill. He is currently sedated and intubated. He remains on phenylephrine at 80 mics per minute. FiO2 down to 0.6. T-max 98.6, I/O 1550/400. 01/03: Patient did well over the night. Norepinephrine weaned off. FiO2 currently at 0.5. Patient remains on a PEEP of 10. Sedation accomplished with propofol and fentanyl. Tmax 98.4. 01/04: Multiple episodes of diarrhea overnight. No C. difficile sent. Urine output decreased, 300 mL's over last 12 hours. Patient does not require any pressors, sedation is maintained with propofol at 30 and fentanyl at 150. During sedation vacation patient moves all extremities, agitated, but does not follow commands. Currently he is sedated and intubated. Morning chest x-ray reviewed, slight improvement in bibasilar infiltrates. 01/05: No events over the night. T-max of 98.6. Urine output 550 mL's over the last 24 hours. Ventilator on 0.4 FiO2. Sedation was stopped this morning, patient agitated moving all extremities but not following commands. Morning chest x-ray reviewed, no significant change compared to yesterday's, ET tube approximately 7 cm above clem. 01/06: Patient remains afebrile, on no pressors. Oxygenation down to 0.4 FiO2, but PEEP remains at 10. Trickle feeds started yesterday, still having residuals. Patient remains on low-dose propofol and fentanyl for sedation. Morning chest x-ray reviewed, still with bibasilar opacities, unchanged. 01/07: Remains sedated, orally intubated on mechanical ventilation. Fentanyl at 150 mics per minute decreased to 50 mics per minute. Abdomen remains distended. Tolerating tube feeds at 20 cc/h with residual 60 cc. 01/08: Sedated, orally intubated on mechanical ventilation. Had large amount of BM last night following Relistor. On tube feeds at 20 cc per hour. 01/09: Currently on propofol drip at 40 mcg/kg/min. Afebrile. GJ tube per IR yesterday. Tube feeds were restarted. at bedside. Continue to diuresis furosemide/albumin Subjective 01/10: Currently off all sedation. Transitioning to dexmedetomidine drip. Tolerating tube feeds via GJ tube. Positive BM. Creatinine up to 3.1. Blinks eyes to commands but not moving extremities. Withdraws to pain. Objective Vital Signs Date Time Temp Pulse Resp B/P (MAP) Pulse Ox O2 Delivery O2 Flow Rate FiO2 01/10/18 13:24 96 40 01/10/18 08:00 99.3 116 34 121/58 (79) 01/08/18 09:17 Ventilator Intake and Output 01/10/18 01/10/18 01/11/18 08:00 16:00 00:00 Intake Total 1180 ml Output Total 1190.0 ml 240 ml Balance -10.0 ml -240 ml Result Diagram: 01/10/18 0418 01/10/18 0418 Other Results Microbiology Date/Time Source Procedure Growth Status 01/01/18 17:57 Blood Peripheral Aerobic Blood Culture - Final NO GROWTH IN 5 DAYS Complete 01/01/18 17:57 Blood Peripheral Anaerobic Blood Culture - Final NO GROWTH IN 5 DAYS Complete 12/28/17 12:15 Fluid Pleural Fluid Fungal Smear - Final NO FUNGAL ELEMENTS SEEN. Resulted 12/28/17 12:15 Fluid Pleural Fluid Fungal Culture - Preliminary NO GROWTH IN 1 WEEK Resulted 01/01/18 17:15 Sputum Endotracheal Gram Stain - Final Complete 01/01/18 17:15 Sputum Endotracheal Sputum Culture - Final HEAVY GROWTH NORMAL RESPIRATORY LISA Complete 01/01/18 17:15 Urine Catheterized Urine Urine Culture - Final NO GROWTH IN 48 HOURS. Complete Imaging Last Impressions Chest X-Ray 01/09/18 0600 Signed Impressions: Service Date/Time: Tuesday, January 09, 2018 05:20 - CONCLUSION: Stable bilateral airspace disease and probable small pleural effusions. Kaveh Preales MD Gastrostomy Tube Change 01/08/18 0000 Signed Impressions: Service Date/Time: Monday, January 08, 2018 14:35 - CONCLUSION: Conversion of the patient's existing gastrostomy tube to a gastrojejunostomy tube. Siva Bean Jr., MD Renal Ultrasound 01/05/18 0000 Signed Impressions: Service Date/Time: Friday, January 05, 2018 08:00 - CONCLUSION: Echogenic kidneys suggesting medical renal disease. Some ascites. Bilateral pleural effusions. Lee Mijares MD Head CT 01/05/18 0000 Signed Impressions: Service Date/Time: Friday, January 05, 2018 11:41 - CONCLUSION: 1. No acute abnormality is seen. 2. Old lacunar infarct at the left basal ganglia. 3. Fluid in the mastoid air cells on the right. Andres Valero MD Small Bowel X-Ray 01/03/18 0000 Signed Impressions: Service Date/Time: December 14:27 - CONCLUSION: 1. No leakage identified on injection through gastrostomy tube. No small bowel obstruction or significant dilatation. Elbert Carrasquillo MD Abdomen/Pelvis CT 01/02/18 0000 Signed Impressions: Service Date/Time: Tuesday, January 02, 2018 21:38 - CONCLUSION: 1. Free intraperitoneal air of unknown etiology. On the supine view most of the free air is around the gastrostomy tube and tip of the nasogastric tube as discussed above. 2. Mild to moderate ascites. Moderate anasarca. 3. Moderate bilateral effusions with basilar atelectasis. 4. Nonobstructing right renal calculus. Hay catheter in bladder. Elbert Carrasquillo MD Chest CT 12/30/17 0000 Signed Impressions: Service Date/Time: Saturday, December 30, 2017 21:13 - CONCLUSION: 1. Free intraperitoneal air in the upper abdomen of uncertain etiology. There is a gastrostomy present. 2. Moderate bilateral pleural effusions with compressive atelectasis. Patchy air space consolidation in the right upper lobe. 3. Moderate anasarca and ascites. 4. Findings called to the floor at the time of dictation. Elbert Carrasquillo MD Chest Ultrasound 12/27/17 0000 Signed Impressions: Service Date/Time: December 21:39 - CONCLUSION: Large left pleural effusion and would be amenable to thoracentesis. Frnady was made on the overlying skin. Andres Parekh MD Bone Biopsy CT 12/25/17 1142 Signed Impressions: Service Date/Time: Monday, December 25, 2017 12:32 - CONCLUSION: 1. Uncomplicated CT guided bone marrow aspirate. 2. Uncomplicated CT guided bone marrow biopsy. Lee Mijares MD CT Angiography 12/25/17 0000 Signed Impressions: Service Date/Time: Monday, December 25, 2017 09:26 - CONCLUSION: 1. No CT evidence for pulmonary artery embolism. 2. Moderate to large bilateral pleural effusions with associated compressive atelectasis at the lung bases. 3. 8mm nodule in the right middle lobe. Followup CT examination may be performed at 6 months to document stability if this has not been evaluated previously. 4. Very mildly prominent mediastinal and hilar nodes and partially imaged upper abdominal lymphadenopathy in this patient with history of lymphoma. Miguel Ashton MD Objective Remarks General -72-year-old male currently orotracheally intubated HEENT - pupils are equal, reactive about 3 mm bilaterally, sclerae are anicteric , neck is supple, no rigidity, positive JVD, + LIJ CVC (01/01) -site remains clean, + ETT CV -RRR with ectopy. S1, S2 no S4. Without murmur Chest -coarse rhonchorous breath sounds bilaterally, no wheezes, good air entry , Ryfynw-w-Etuo right chest -site remains clean Abdomen - soft, obese, appears non-tender, BS present, no hepatomegaly, no splenomegaly, + GJ tube Extremities - 2+ edema, + peripheral pulses, warm, no cyanosis Neuro - intubated, pupils equal and reactive, grimaces to pain but does not follow commands while on propofol drip. Urinary Catheter: Yes Assessment to: Continue Hay insert reason: ICU Pt Getting Diuretics Vascular Central Line Catheter: Yes Assessment to: Continue Date of Insertion: Jan 01, 2018 Line: Central Venous Catheter Side: Left Location: Internal, Jugular A/P Assessment and Plan Neuro/Psych: History of left basal ganglia CVA without residual Bilateral lower extremity neuropathy Currently a propofol drip at 20 micrograms per kilogram per minute while intubated for sedation Transition to dexmedetomidine drip Goal of RA SS -[address] brain 01/05 revealed old left basal CVA. Discussed with MRI brain. Rule out pontine CVA. She desires to wait additional day for prior sedative medications to "washout". Benefits and risks discussed with . She wishes to proceed with careful monitoring the present time. CV: Hypertension Dyslipidemia 2D echocardiogram revealed EF 65-70%. Tricuspid regurgitation. PA P 38 mmHg He is on aspirin 81 mg p.o. daily to Resp: Acute hypoxic hypercapnic respiratory failure secondary to aspiration pneumonia Right middle lobe pulmonary nodule 8 mm recommend 6 month follow-up CT [facility] Ventilator bundle Patient written for budesonide/formoterol 160/4.5 2 puffs twice daily. Albuterol/ipratropium aerosols every 6 hours with albuterol aerosols every 2 hours as needed dyspnea On prednisone [address] Blevins/pulmonology is following GI: Status post GJ conversion by IR 01/08 Hypoalbuminemia Lansoprazole 30 mg daily for GI prophylaxis Docusate sodium liquid 100 mg twice daily for bowel regimen On Megestrol 800 mg daily for anorexia Nutrition recommends vital 1.5 goal 60 cc an hour. : Hay catheter for accurate I's and O's in a critically ill patient Endo: Sliding scale insulin to maintain euglycemia/low regimen every 6 hours TSH is 1.18 Renal: Acute kidney injury likely secondary to sepsis/ATN Right-sided nephrolithiasis Urine eosinophils negative. Renal ultrasound reveals medical renal disease and prior CT abdomen/pelvis revealed non-obstructing right renal stones. Followed by Dr. Carver/nephrology Avoid nephrotoxic medication Creatinine currently 3.1 Heme: Anaplastic ALK negative large cell lymphoma, received CHOP therapy on 12/25 Normocytic anemia Neupogen discontinued 01/07. Followed by hematology No indication for transfusion of blood products at this time ID: Day #3 cefepime 2 g IV every 12 hours. Meropenem discontinued 01/08 Continue metronidazole 500 mg 3 times daily Followed by infectious disease for prescribing medication FEN: Hypernatremia Currently D5 water 20 cc an hour. Replace electrolytes as clinically indicated MSK: Sacral decubitus ulcer Wound care management Access Left IJ CVL placed 01/01 to present Right Fndmsi-s-Brdb placed 12/20/17 Prophylaxis -GI -lansoprazole -DVT -SCD/heparin subcu Level 3 follow-up Pascual Bran MD Jan 10, 2018 14:28
--- NOTE | 2018-01-10 15:32 | HHI.NPPN ---
Subjective History of Present Illness 72-year-old male with history of large cell lymphoma, acute renal failure, respiratory failure on ventilator Objective Data Data 01/10/18 01/11/18 19:00 07:00 Output Total 480.0 ml Balance -480.0 ml Gastric Drainage Total 240 ml Tube Feeding Residual Discard 240.0 ml Vital Signs Date Time Temp Pulse Resp B/P (MAP) Pulse Ox O2 Delivery O2 Flow Rate FiO2 01/10/18 13:24 96 40 01/10/18 12:00 40 01/10/18 09:37 94 40 01/10/18 09:35 40 01/10/18 08:46 93 40 01/10/18 08:00 40 01/10/18 08:00 99.3 116 34 121/58 (79) 98 01/10/18 06:00 114 01/10/18 04:00 113 01/10/18 04:00 40 01/10/18 04:00 99.2 114 23 106/68 (81) 96 01/10/18 03:55 96 40 01/10/18 02:00 109 01/10/18 00:08 95 40 01/10/18 00:00 40 01/10/18 00:00 114 01/10/18 00:00 98.0 115 23 130/63 (85) 95 01/09/18 22:00 111 01/09/18 20:00 98 01/09/18 20:00 40 01/09/18 20:00 97.2 98 22 113/71 (85) 95 01/09/18 19:29 94 40 01/09/18 18:00 114 01/09/18 16:27 94 40 01/09/18 16:22 40 01/09/18 16:00 97.8 104 22 137/70 (92) 94 01/09/18 16:00 104 01/09/18 16:00 40 -: 01/10/18 0418 01/10/18 0418 Physical Exam General Appearance: Well Developed Neck Neck Exam: Neck Supple Pulmonary Resp Exam: Rhonchi Cardiology CV Exam: Regular, Normal Sinus Rhythm Gastrointestinal/Abdomen GI Exam: Soft, Non-Tender, Bowel Sounds Present Extremeties Extremities Exam: Moderate Edema Assessment/Plan Problem List: (1) Acute renal failure ICD Codes: N17.9 - Acute kidney failure, unspecified Status: Acute Plan: he has sepsis contributing to ARF FeNa low <1 edema worse Urine output 2.9 L given Lasix Cr 3. 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
[2018-01-10] MEDS: NOREPINEPHRINE-DEXTROSE DRIP 250 ML IV PRN (15:50)
[2018-01-10] MEDS: DEXMEDETOMIDINE INJ 1,000 MCG in SODIUM CHLOR 0.9% 250 ML INJ 240 ML IV PRN (16:54)
--- NOTE | 2018-01-10 16:55 | MG ---
cc: Prabhjot Malone MD, PhD TEST NUMBER: [id number]. TECHNIQUE: 17-channel EEG. DESCRIPTION: The background rhythm is low in the delta frequency, 3-4 Hz amplitude, 20-30 microvolts. No lateralizing features are identified, and no epileptiform features are identified. Photic results in no significant driving response. INTERPRETATION: Abnormal study consistent with severe encephalopathy. Prabhjot Malone MD, PhD JOSELUIS/MAXWELL , 04:46 PM , 04:54 PM
[2018-01-10] MEDS: DEXTROSE 5% IN WATE 1000ML INJ 1,000 ML IV SCH (17:45)
[2018-01-10] MEDS: FREE WATER G-TUBE SCH (17:55)
--- NOTE | 2018-01-10 18:32 | HHI.PR ---
Subjective Remarks Was intubated on 01/01 for aspiration and respiratory failure. Now on FIO2 40 % and PEEP at 5.Failed CPAP trial. X ray chest shows Bilat infiltrates. On antibiotics. On Precedex now. Objective Vital Signs Date Time Temp Pulse Resp B/P (MAP) Pulse Ox O2 Delivery O2 Flow Rate FiO2 01/10/18 16:46 100 40 01/10/18 16:00 40 01/10/18 16:00 98.2 68 22 104/59 (74) 100 01/10/18 15:50 68 67/46 01/10/18 13:24 96 40 01/10/18 12:00 40 01/10/18 12:00 98.5 114 29 119/71 (87) 95 01/10/18 09:37 94 40 01/10/18 09:35 40 01/10/18 08:46 93 40 01/10/18 08:00 40 01/10/18 08:00 99.3 116 34 121/58 (79) 98 01/10/18 06:00 114 01/10/18 04:00 113 01/10/18 04:00 40 01/10/18 04:00 99.2 114 23 106/68 (81) 96 01/10/18 03:55 96 40 01/10/18 02:00 109 01/10/18 00:08 95 40 01/10/18 00:00 40 01/10/18 00:00 114 01/10/18 00:00 98.0 115 23 130/63 (85) 95 01/09/18 22:00 111 01/09/18 20:00 98 01/09/18 20:00 40 01/09/18 20:00 97.2 98 22 113/71 (85) 95 01/09/18 19:29 94 40 I/O 01/09/18 01/09/18 01/09/18 01/10/18 01/10/18 01/10/18 07:00 15:00 23:00 07:00 15:00 23:00 Intake Total 504 ml 150 ml 958 ml 1180 ml Output Total 1700 ml 2000 ml 950 ml 480.0 ml Balance -1196 ml 150 ml -1042 ml 230 ml -480.0 ml IV Total 300 ml 150 ml 440 ml 520 ml Tube Feeding 84 ml 518 ml 660 ml Other 120 ml Output Urine Total 1700 ml 2000 ml 950 ml Gastric Drainage Total 240 ml Tube Feeding Residual Discard 0 ml 240.0 ml # Bowel Movements 1 0 3 2 Result Diagram: 01/10/18 0418 01/10/18 0418 Procedures PEG tube placement. Bone Marrow Biopsy 12/25/17 Objective Remarks General appearance: This elderly white male is averagely built, on vent support. HEENT: Head normocephalic. Pupils reactive. Sclerae were clear Ears: No inflammation. Throat was clear. Neck: No bruits or thyroid enlargement or lymphadenopathy. Chest: Distant breath sounds with few crackles at both lung bases. Cardiovascular: The heart sounds are regular, S1 and S2. No murmur. No S3. Abdomen: Is soft, benign. No masses. Extremities: No edema. Pt is sedated.Lethargic. Assessment and Plan Assessment and Plan IMPRESSION: 1. Bibasilar pleural effusions with atelectasis. 2. History of hypertension. 3. Hyperlipidemia. 4. COPD, emphysema. 5. History of Anaplastic NHL . 6. Respiratory Failure Plan : 1. Cont Antibiotics per ID 2 Wean FIo2 to keep sat >92 3. Prednisone 10 mg bid 4. Nebs qid , duoneb. 5.CPAP trial daily 6.A/C Rate 10 at HS 7. Precedex for sedation 8. CXR in am Katiuska Blevins MD Jan 10, 2018 18:32
[2018-01-11] VITALS (17 sets, daily range): BP systolic 102–127; BP diastolic 55–83; PULSE 65–111; RESP 13–27; TEMP 97.4–98.8; O2SAT 96–99
[2018-01-11 04:45] LABS: AUTOMATED NEUTROPHIL # 10.5 TH/MM3 (1.8-7.7); BASOPHIL % 0.2 % (0.0-2.0); HEMATOCRIT 24.3 % (39.0-51.0); LYMPH % 1.7 % (9.0-44.0); LYMPHOCYTE # 0.2 TH/MM3 (1.0-4.8); MEAN CELL VOLUME 83.2 FL (80.0-100.0); MEAN CORPUSCULAR HEMOGLOBIN 27.3 PG (27.0-34.0); MEAN CORPUSCULAR HGB CONC 32.8 % (32.0-36.0); MONOCYTE # 0.3 TH/MM3 (0-0.9); NEUT % 95.1 % (16.0-70.0); PLATELET COUNT 263 TH/MM3 (150-450); RED BLOOD COUNT 2.92 MIL/MM3 (4.50-5.90); RED CELL DISTRIBUTION WIDTH 18.1 % (11.6-17.2)
[2018-01-11 04:59] LABS: ALBUMIN 1.7 GM/DL (3.4-5.0); BICARBONATE 22.1 MEQ/L (21.0-32.0); CALCIUM 7.4 MG/DL (8.5-10.1); CREATININE 3.17 MG/DL (0.60-1.30); PHOSPHORUS 3.8 MG/DL (2.5-4.9)
[2018-01-11 05:13] LABS: CALCIUM-PROTEIN CORRECTED 8.9 MG/DL (8.5-10.1); TOTAL PROTEIN 4.5 GM/DL (6.4-8.2)
--- NOTE | 2018-01-11 05:21 | RADRPT ---
EXAM DATE/TIME: 01/11/2018 04:00 [facility] COMPARISON: CHEST SINGLE AP, January 09, 2018, 5:20. INDICATIONS : Respiratory failure. MEDICAL HISTORY : Hypertension. Lymphoma. Chronic obstructive pulmonary disease. Hypercholesterolemia, CVA SURGICAL HISTORY : Port placement. Back surgery ENCOUNTER: Subsequent ACUITY: 2 weeks PAIN SCORE: Non-responsive. LOCATION: Bilateral chest FINDINGS: Fairly diffuse but patchy consolidation again seen in the right lung and with associated volume loss. There is a [id number] right pleural effusion. There is mild consolidation and a small effusio n at the left base. Findings are not significantly changed. I don't see a pneumothorax. Heart size stable, upper limits of normal. Right internal jugular Plybfi-g-Wmoy catheter with tip in the lower superior vena cava again seen. En dotracheal tube tip is approximate 6 cm above the clem. The previously seen left IJ line has been r emoved. CONCLUSION: Right greater than left parenchymal consolidation and small moderate right, small left pleural effusi ons not significantly changed. Andres Parekh MD on January 11, 2018 at 5:18 Board Certified Radiologist. This report was verified electronically.
[2018-01-11] MEDS: ARTIFICIAL TEARS OPTH SOLN 15 ML BTL EACH EYE SCH ×3 (05:59→21:26)
[2018-01-11] MEDS: metroNIDAZOLE 500 MG TAB PO SCH ×3 (05:59→21:25)
[2018-01-11] MEDS: FREE WATER G-TUBE SCH ×4 (05:59→17:47)
[2018-01-11] MEDS: HEPARIN SODIUM - SQ 10,000 UNITS/ML VIAL SQ SCH ×3 (05:59→21:26)
[2018-01-11] MEDS: INSULIN ASPART SUPPLEMENTAL SCALE SQ SCH ×4 (06:00→17:48)
[2018-01-11] MEDS: RESP: ALBUTEROL 2.5 MG/IPRATROPIUM 0.5 MG NEB (SCH) NEB ×3 (07:55→20:11)
[2018-01-11] MEDS: CHLORHEXIDINE 0.12% (ORAL KIT) 15 ML CUP MT SCH ×2 (08:00→20:00)
[2018-01-11] MEDS: DEXMEDETOMIDINE INJ 1,000 MCG in SODIUM CHLOR 0.9% 250 ML INJ 240 ML IV PRN (08:18)
[2018-01-11] MEDS: LANSOPRAZOLE SOLUTAB 30 MG TAB G-TUBE SCH ×2 (08:29→21:25)
[2018-01-11] MEDS: MULTIVITAMIN TAB PO SCH (08:29)
[2018-01-11] MEDS: MEGESTROL ACETATE SUSP 400 MG/10 ML CUP PO SCH (08:29)
[2018-01-11] MEDS: ASPIRIN 81 MG CHEW TAB CHEW SCH (08:29)
[2018-01-11] MEDS: predniSONE 10 MG TAB PO SCH ×2 (08:29→21:25)
[2018-01-11] MEDS: BUDESONIDE-FORMOTEROL 160/4.5 MCG INHALER INH SCH ×2 (08:29→21:00)
[2018-01-11] MEDS: DOCUSATE SODIUM 100 MG/10 ML UDC OG-TUBE SCH ×2 (09:00→21:00)
[2018-01-11] MEDS: SODIUM CHLORIDE 0.9% FLUSH 10 ML FLUSH IV FLUSH SCH ×2 (09:00→21:00)
[2018-01-11] MEDS: CEFEPIME INJ 2,000 MG in SODIUM CHLORIDE 0.9% INJ 100 ML IV SCH ×2 (10:00→21:25)
--- NOTE | 2018-01-11 10:53 | PD.ONC.PN ---
Subjective Subjective Remarks Afebrile overnight. Patient remains intubated. sedated on precedex. at bedside. Objective Data Date Time Temp Pulse Resp B/P (MAP) Pulse Ox O2 Delivery O2 Flow Rate FiO2 01/11/18 08:00 97.5 77 20 102/56 (71) 99 01/11/18 08:00 77 01/11/18 08:00 40 01/11/18 07:57 98 40 01/11/18 07:50 40 01/11/18 07:43 97 40 01/11/18 06:00 84 01/11/18 04:00 88 01/11/18 04:00 98.8 88 21 115/60 (78) 97 01/11/18 04:00 40 01/11/18 03:55 98 40 01/11/18 02:00 108 01/11/18 01:39 96 40 01/11/18 00:00 40 01/11/18 00:00 99 01/11/18 00:00 98.4 102 13 124/83 (97) 99 01/10/18 22:00 104 01/10/18 20:00 98.7 110 19 132/66 (88) 97 01/10/18 20:00 110 01/10/18 20:00 40 01/10/18 19:35 92 40 01/10/18 16:46 100 40 01/10/18 16:00 40 01/10/18 16:00 98.2 68 22 104/59 (74) 100 01/10/18 15:50 68 67/46 01/10/18 13:24 96 40 01/10/18 12:00 40 01/10/18 12:00 98.5 114 29 119/71 (87) 95 01/11/18 01/11/18 01/11/18 07:00 15:00 23:00 Intake Total 930 ml Output Total 550 ml Balance 380 ml Result Diagram: 01/11/1842101/11/18421 Laboratory Results Laboratory Tests Test 01/11/18 04:22 White Blood Count 11.0 TH/MM3 Red Blood Count 2.92 MIL/MM3 Hemoglobin 8.0 GM/DL Hematocrit 24.3 % Mean Corpuscular Volume 83.2 FL Mean Corpuscular Hemoglobin 27.3 PG Mean Corpuscular Hemoglobin Concent 32.8 % Red Cell Distribution Width 18.1 % Platelet Count 263 TH/MM3 Mean Platelet Volume 10.0 FL Neutrophils (%) (Auto) 95.1 % Lymphocytes (%) (Auto) 1.7 % Monocytes (%) (Auto) 3.0 % Eosinophils (%) (Auto) 0.0 % Basophils (%) (Auto) 0.2 % Neutrophils # (Auto) 10.5 TH/MM3 Lymphocytes # (Auto) 0.2 TH/MM3 Monocytes # (Auto) 0.3 TH/MM3 Eosinophils # (Auto) 0.0 TH/MM3 Basophils # (Auto) 0.0 TH/MM3 CBC Comment AUTO DIFF Differential Comment AUTO DIFF CONFIRMED Blood Urea Nitrogen 74 MG/DL Creatinine 3.17 MG/DL Random Glucose 136 MG/DL Total Protein 4.5 GM/DL Albumin 1.7 GM/DL Calcium Level 7.4 MG/DL Phosphorus Level 3.8 MG/DL Sodium Level 148 MEQ/L Potassium Level 4.3 MEQ/L Chloride Level 116 MEQ/L Carbon Dioxide Level 22.1 MEQ/L Anion Gap 10 MEQ/L Estimat Glomerular Filtration Rate 19 ML/MIN Protein Corrected Calcium 8.9 MG/DL Imaging Studies Last 24 hours Impressions Chest X-Ray 01/11/18 0600 Signed Impressions: Service Date/Time: Thursday, January 11, 2018 04:00 - CONCLUSION: Right greater than left parenchymal consolidation and small moderate right, small left pleural effusions not significantly changed. Andres Parekh MD Administered Medications Medications (Trade) Dose Ordered Sig/Candace Route PRN Reason Start Time Stop Time Status Last Admin Dose Admin Sodium Chloride (NS Flush) 2 ml BID IV FLUSH 12/22/17 21:00 01/09/18 20:22 Ondansetron HCl (Zofran Inj) 4 mg Q6H PRN IVP NAUSEA OR VOMITING 12/22/17 18:15 01/01/18 10:02 Zolpidem Tartrate (Ambien) 5 mg HS PRN PO INSOMNIA 12/22/17 20:15 12/26/17 20:30 Megestrol Acetate (Megace Liq) 800 mg DAILY PO 12/23/17 09:00 01/11/18 08:29 Budesonide/ Formoterol Fumarate (Symbicort 160-4.5 Mcg Inh) 1 puff Q12HR INH 12/22/17 21:00 01/01/18 08:53 Atorvastatin Calcium (Lipitor) 80 mg DAILY PO 12/23/17 09:00 Future Hold 01/08/18 08:32 Multivitamins (Theragran) 1 tab DAILY PO 12/23/17 09:00 01/11/18 08:29 Heparin Sodium (Porcine) (Heparin Central Flush) 250 units UNSCH PRN IV FLUSH SEE PROTOCOL 12/22/17 20:30 12/27/17 20:27 Guaifenesin/ Dextromethorphan (Robitussin Dm 200-20 Mg/10 ml Liq) 10 ml Q4H PRN PO cough interfering with rest 12/22/17 21:00 12/26/17 18:27 Calcium Carbonate (Tums Chew) 500 mg Q12HR PRN CHEW indigestion 12/31/17 16:15 01/01/18 05:27 Prednisone (Deltasone) 10 mg BID PO 01/01/18 21:00 01/11/18 08:29 Chlorhexidine Gluconate (Peridex 0.12% Liq) 15 ml BID@08,20 MT 01/01/18 20:00 01/11/18 08:00 Norepinephrine Bitartrate 250 ml @ 7.5 mls/hr TITRATE PRN IV Blood pressure management 01/01/18 17:00 01/10/18 15:50 Propofol 100 ml @ 2.757 mls/ hr TITRATE PRN IV SEDATION 01/02/18 11:15 01/10/18 09:22 Dextrose 1,000 ml @ 20 mls/hr Q24H IV 01/04/18 07:00 01/08/18 18:00 Insulin Aspart (NovoLOG SUPPLEMENTAL SCALE) 1 Q6HR SQ 01/07/18 18:00 01/10/18 17:55 Docusate Sodium (Colace Liq) 100 mg Q12HR OG-TUBE 01/07/18 21:00 01/09/18 20:21 Cefepime HCl 2000 mg/Sodium Chloride 100 ml @ 200 mls/hr Q12H IV 01/08/18 22:00 01/11/18 10:00 Metronidazole (Flagyl) 500 mg Q8H PO 01/08/18 22:00 01/11/18 05:59 Lansoprazole (Prevacid Odt) 30 mg BID G-TUBE 01/09/18 21:00 01/11/18 08:29 Albuterol/ Ipratropium (Duoneb Neb) 1 ampule Q6HR WHILE AWAKE NEB NEB 01/09/18 14:00 01/11/18 07:55 Artificial Tears (Tears Naturale Opth Soln) 1 drop Q8HR EACH EYE 01/09/18 14:00 01/11/18 05:59 Heparin Sodium (Porcine) (Heparin Inj) 5,000 units Q8HR SQ 01/09/18 14:00 01/11/18 05:59 Aspirin (Aspirin Chew) 81 mg DAILY CHEW 01/10/18 11:00 01/11/18 08:29 Dexmedetomidine HCl 1000 mcg/ Sodium Chloride 250 ml @ 4.76 mls/hr TITRATE PRN IV SEDATION 01/10/18 13:45 01/11/18 08:18 Water (Free Water) VOLUME: 100 ML Q6HR G-TUBE 01/10/18 18:00 01/11/18 05:59 Objective Remarks GENERAL: Intubated, sedated male. SKIN: Warm and dry. HEAD: Normocephalic. EYES: No injection or drainage. NECK: Supple, trachea midline. CARDIOVASCULAR: R+S1/S2 RESPIRATORY: anterior clark with occasional rhonchi. on CPAP via OT intubation GASTROINTESTINAL: Abdomen nondistended. GJ tube in place EXTREMITIES: No cyanosis + edema in BUE and BLE. 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 patient remains intubated. plan from oncology standpoint is to give a second round of chemotherapy if he clinically improves. 01/10: patient remains critically ill, intubated and is currently minimally responsive off sedation. will hold chemotherapy until clinically improved. 01/09: Next cycle of CHOP chemo is due next week; we will likely hold this until he is more stable. Continue to monitor CBC. 01/08: monitor CBC, WBC is recovered. 01/07: Continue neupogen x 1 more day. Monitor CBC. Transfuse 1 unit packed red blood cells if hemoglobin trending down tomorrow. CXR shows worsening disease. Abx per ID, Vent mgmt by detailer school photographs. 01/06: Patient no longer neutropenic. Continue Neupogen today. Monitor CBC. 01/05: Noted white blood cells minimally improved. Continue Neupogen for now. Await results from CT brain. Supportive care. 01/04: remains on vent. Off pf pressors. Pancytopenia with Neutropenia. Continue neupogen. Vent management per [employer]. Extensive d/w and DIL ( BUSINESS TECHNOLOGY PROFESSOR) . answered their questions. Continue maximal support. 01/03: Continue Neupogen. Transfuse 1 unit packed red blood cells today for hemoglobin of 7.5. Monitor CBC. 01/02: patient remains intubated, sedated. start Neupogen for neutropenia + infection 01/01: patient in respiratory failure. intubated and transferring to intensive care. 12/31: C. difficile negative. Bone marrow biopsy shows no lymphoma involvement. Cytology from thoracentesis pending. Transfuse 1 unit PRBC for symptomatic with hgb 7.7. Patient would benefit from inpatient rehab for strengthening 12/28: continue solu-medrol. await thoracentesis. consult OT. 12/27: start Solu-medrol 40mg IV q 6. consult pulmonology for worsening infiltrates, pleural effusions. monitor CBC, counts dropping. 12/26: CT chest shows Bilateral Pl effusion. Continue aggressive diuresis. Had CHOP C1D1 yesterday. Tolerated well. Next chemo in 3 weeks as outpt. Continue allopurinol and prednisone. 12/25: CTA shows no PE. +LAD, PE. dyspnea likely d/t lymphoma. will give Solu- medrol 1g IV and start CHOP today. Anaplastic large cell, non-Hodgkin's lymphoma, at least stage III. --unclear whether he has any B symptoms, but this could be most likely given that he has significant weight loss, which is one of the symptoms of lymphoma. --Leukocytosis, anemia and neutrophilia, most likely due to bone marrow involvement by the lymphoma until proven otherwise. (2) Renal insufficiency ICD Codes: N28.9 - Disorder of kidney and ureter, unspecified Plan: --Nephrology following. --unclear etiology Assessment 72y/o male with newly diagnosed anaplastic large cell NHL. h/o COPD, hypercholesterolemia, hypertension, history of previous stroke. HPI: started 8 weeks ago with a cough mixed with greenish phlegm and shortness of breath. CT cap showed diffuse lymphadenopathy on both sides of the diaphragm. PET scan showed increased uptake in the lymph nodes involving the neck, chest, mediastinal and hilar area, retroperitoneum and pelvic lymph nodes. biopsy of the left neck mass=anaplastic large cell NHL echocardiogram, LVEF=55-70%. MUGA scan, showed EF of 60%. Susy La Jan 11, 2018 10:53
[2018-01-11] MEDS ORDERED: SODIUM CHLOR 0.9% 1000 ML INJ 1,000 ML OTHER PRN ×2 (11:53)
[2018-01-11] MEDS ORDERED: SODIUM CHLOR 0.9% 1000 ML INJ 1,000 ML IV PRN (11:53)
--- NOTE | 2018-01-11 11:53 | HHI.NPPN ---
Subjective History of Present Illness 72-year-old male with history of large cell lymphoma, acute renal failure, respiratory failure on ventilator Objective Data Data Vital Signs Date Time Temp Pulse Resp B/P (MAP) Pulse Ox O2 Delivery O2 Flow Rate FiO2 01/11/18 08:00 97.5 77 20 102/56 (71) 99 01/11/18 08:00 77 01/11/18 08:00 40 01/11/18 07:57 98 40 01/11/18 07:50 40 01/11/18 07:43 97 40 01/11/18 06:00 84 01/11/18 04:00 88 01/11/18 04:00 98.8 88 21 115/60 (78) 97 01/11/18 04:00 40 01/11/18 03:55 98 40 01/11/18 02:00 108 01/11/18 01:39 96 40 01/11/18 00:00 40 01/11/18 00:00 99 01/11/18 00:00 98.4 102 13 124/83 (97) 99 01/10/18 22:00 104 01/10/18 20:00 98.7 110 19 132/66 (88) 97 01/10/18 20:00 110 01/10/18 20:00 40 01/10/18 19:35 92 40 01/10/18 16:46 100 40 01/10/18 16:00 40 01/10/18 16:00 98.2 68 22 104/59 (74) 100 01/10/18 15:50 68 67/46 01/10/18 13:24 96 40 01/10/18 12:00 40 01/10/18 12:00 98.5 114 29 119/71 (87) 95 -: 01/11/18 0422 01/11/18 0422 Physical Exam General Appearance: Well Developed Neck Neck Exam: Neck Supple Pulmonary Resp Exam: Rhonchi Cardiology CV Exam: Regular, Normal Sinus Rhythm Gastrointestinal/Abdomen GI Exam: Soft, Non-Tender, Bowel Sounds Present Extremeties Extremities Exam: Moderate Edema Assessment/Plan Problem List: (1) Acute renal failure ICD Codes: N17.9 - Acute kidney failure, unspecified Status: Acute Plan: he has sepsis contributing to ARF FeNa low <1 edema worse Urine output 2.9 L given Lasix FACr 3.17 Higher Chest x-ray showed fluid overload has peripheral edema Na 148 Explained that he will need dialysis because of severe edema, ultrafiltration will help Discussed with he agreed But then canceled the dialysis I will place him on Lasix drip diuresed he has peripheral edema volume overload May need to ultrafiltration over the weekend Continue to observe for recovery Avoid nephrotoxic agent Monitor BMP 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
[2018-01-11] MEDS ORDERED: EPOETIN ALFA 10,000 UNITS/ML VIAL IV PUSH PRN (12:00)
[2018-01-11] MEDS ORDERED: NITROGLYCERIN 0.4 MG SL 25 TABS/BTL SL PRN (12:00)
[2018-01-11] MEDS ORDERED: HEPARIN SODIUM - IV 10,000 UNITS/10 ML VIAL IV FLUSH PRN (12:00)
[2018-01-11] MEDS ORDERED: diphenhydrAMINE HCL 25 MG CAP PO PRN (12:00)
[2018-01-11] MEDS ORDERED: ONDANSETRON HCL 4 MG/2 ML VIAL IV PUSH PRN (12:00)
[2018-01-11] MEDS ORDERED: GELATIN 12 MM/7 MM FOAM TOP PRN (12:00)
[2018-01-11] MEDS ORDERED: cloNIDine HCL 0.1 MG TAB PO PRN (12:00)
[2018-01-11] MEDS ORDERED: SODIUM CHLORIDE 0.9% FLUSH 10 ML FLUSH IV FLUSH PRN (12:00)
[2018-01-11] MEDS ORDERED: FUROSEMIDE 40 MG/4 ML VIAL IV PUSH ONE (12:15)
[2018-01-11] MEDS: FUROSEMIDE INJ 100 MG in SODIUM CHLORIDE 0.9% INJ 90 ML IV SCH (13:06)
--- NOTE | 2018-01-11 14:19 | HHI.CCPN ---
Subjective Remarks/Hospital Course 01/01: 72-year-old gentleman with history of hypertension, hyperlipidemia and previous CVA, COPD, now newly diagnosed with anaplastic large cell non-Hodgkin' s lymphoma now transferred from [facility] on 12/23 for further treatment. On 12/25 patient received chemotherapy -CHOP regimen. Hospitalization further significant for PEG placement due to malnutrition and lack of appetite and thoracentesis for pleural effusion. Patient was being followed by pulmonary, cardiology and hematology services. Over the night patient had increased O2 requirements with high tube feed residual and concern for aspiration. A rapid response was called earlier this afternoon for worsening hypoxia despite NRM. Patient was emergently intubated and upon intubation he was found to have significant amount of tube feeds in the airway. An NG tube was placed on suction with 750 cc suctioned from the stomach. Patient was started on midazolam and fentanyl drips and phenylephrine for BP support. Patient was seen immediately on ICU arrival, 100% O2 with SPO2 100%. Patient requires 20 mics per minute of phenylephrine infusion. He is intubated and sedated, unresponsive. 01/02: No events over the night. Patient remains critically ill. He is currently sedated and intubated. He remains on phenylephrine at 80 mics per minute. FiO2 down to 0.6. T-max 98.6, I/O 1550/400. 01/03: Patient did well over the night. Norepinephrine weaned off. FiO2 currently at 0.5. Patient remains on a PEEP of 10. Sedation accomplished with propofol and fentanyl. Tmax 98.4. 01/04: Multiple episodes of diarrhea overnight. No C. difficile sent. Urine output decreased, 300 mL's over last 12 hours. Patient does not require any pressors, sedation is maintained with propofol at 30 and fentanyl at 150. During sedation vacation patient moves all extremities, agitated, but does not follow commands. Currently he is sedated and intubated. Morning chest x-ray reviewed, slight improvement in bibasilar infiltrates. 01/05: No events over the night. T-max of 98.6. Urine output 550 mL's over the last 24 hours. Ventilator on 0.4 FiO2. Sedation was stopped this morning, patient agitated moving all extremities but not following commands. Morning chest x-ray reviewed, no significant change compared to yesterday's, ET tube approximately 7 cm above clem. 01/06: Patient remains afebrile, on no pressors. Oxygenation down to 0.4 FiO2, but PEEP remains at 10. Trickle feeds started yesterday, still having residuals. Patient remains on low-dose propofol and fentanyl for sedation. Morning chest x-ray reviewed, still with bibasilar opacities, unchanged. 01/07: Remains sedated, orally intubated on mechanical ventilation. Fentanyl at 150 mics per minute decreased to 50 mics per minute. Abdomen remains distended. Tolerating tube feeds at 20 cc/h with residual 60 cc. 01/08: Sedated, orally intubated on mechanical ventilation. Had large amount of BM last night following Relistor. On tube feeds at 20 cc per hour. 01/09: Currently on propofol drip at 40 mcg/kg/min. Afebrile. GJ tube per IR yesterday. Tube feeds were restarted. at bedside. Continue to diuresis furosemide/albumin 01/10: Currently off all sedation. Transitioning to dexmedetomidine drip. Tolerating tube feeds via GJ tube. Positive BM. Creatinine up to 3.1. Blinks eyes to commands but not moving extremities. Withdraws to pain. Subjective 01/11: Afebrile. Long discussion with . Nephrology wishes to initiate hemodialysis today. Benefits and risks discussed. She wishes to wait another day to see if he has any significant recovery. Nephrology will give extra furosemide today. Objective Vital Signs Date Time Temp Pulse Resp B/P (MAP) Pulse Ox O2 Delivery O2 Flow Rate FiO2 01/11/18 13:01 35 01/11/18 12:00 97.5 81 18 117/73 (88) 96 01/08/18 09:17 Ventilator Intake and Output 01/11/18 01/11/18 01/11/18 07:59 15:59 23:59 Intake Total 930 ml Output Total 550 ml Balance 380 ml Result Diagram: 01/11/18 0422 01/11/18 0422 Other Results Microbiology Date/Time Source Procedure Growth Status 01/01/18 17:57 Blood Peripheral Aerobic Blood Culture - Final NO GROWTH IN 5 DAYS Complete 01/01/18 17:57 Blood Peripheral Anaerobic Blood Culture - Final NO GROWTH IN 5 DAYS Complete 12/28/17 12:15 Fluid Pleural Fluid Fungal Smear - Final NO FUNGAL ELEMENTS SEEN. Resulted 12/28/17 12:15 Fluid Pleural Fluid Fungal Culture - Preliminary NO GROWTH IN 2 WEEKS Resulted 01/01/18 17:15 Sputum Endotracheal Gram Stain - Final Complete 01/01/18 17:15 Sputum Endotracheal Sputum Culture - Final HEAVY GROWTH NORMAL RESPIRATORY LISA Complete 01/01/18 17:15 Urine Catheterized Urine Urine Culture - Final NO GROWTH IN 48 HOURS. Complete Imaging Last Impressions Chest X-Ray 01/11/18 0600 Signed Impressions: Service Date/Time: Thursday, January 11, 2018 04:00 - CONCLUSION: Right greater than left parenchymal consolidation and small moderate right, small left pleural effusions not significantly changed. Andres Parekh MD Gastrostomy Tube Change 01/08/18 0000 Signed Impressions: Service Date/Time: Monday, January 08, 2018 14:35 - CONCLUSION: Conversion of the patient's existing gastrostomy tube to a gastrojejunostomy tube. Siva Bean Jr., MD Renal Ultrasound 01/05/18 0000 Signed Impressions: Service Date/Time: Friday, January 05, 2018 08:00 - CONCLUSION: Echogenic kidneys suggesting medical renal disease. Some ascites. Bilateral pleural effusions. Lee Mijares MD Head CT 01/05/18 0000 Signed Impressions: Service Date/Time: Friday, January 05, 2018 11:41 - CONCLUSION: 1. No acute abnormality is seen. 2. Old lacunar infarct at the left basal ganglia. 3. Fluid in the mastoid air cells on the right. Andres Valero MD Small Bowel X-Ray 01/03/18 0000 Signed Impressions: Service Date/Time: December 14:27 - CONCLUSION: 1. No leakage identified on injection through gastrostomy tube. No small bowel obstruction or significant dilatation. Elbert Carrasquillo MD Abdomen/Pelvis CT 01/02/18 0000 Signed Impressions: Service Date/Time: Tuesday, January 02, 2018 21:38 - CONCLUSION: 1. Free intraperitoneal air of unknown etiology. On the supine view most of the free air is around the gastrostomy tube and tip of the nasogastric tube as discussed above. 2. Mild to moderate ascites. Moderate anasarca. 3. Moderate bilateral effusions with basilar atelectasis. 4. Nonobstructing right renal calculus. Hay catheter in bladder. Elbert Carrasquillo MD Chest CT 12/30/17 0000 Signed Impressions: Service Date/Time: Saturday, December 30, 2017 21:13 - CONCLUSION: 1. Free intraperitoneal air in the upper abdomen of uncertain etiology. There is a gastrostomy present. 2. Moderate bilateral pleural effusions with compressive atelectasis. Patchy air space consolidation in the right upper lobe. 3. Moderate anasarca and ascites. 4. Findings called to the floor at the time of dictation. Elbert Carrasquillo MD Chest Ultrasound 12/27/17 0000 Signed Impressions: Service Date/Time: December 21:39 - CONCLUSION: Large left pleural effusion and would be amenable to thoracentesis. Frandy was made on the overlying skin. Andres Parekh MD Bone Biopsy CT 12/25/17 1142 Signed Impressions: Service Date/Time: Monday, December 25, 2017 12:32 - CONCLUSION: 1. Uncomplicated CT guided bone marrow aspirate. 2. Uncomplicated CT guided bone marrow biopsy. Lee Mijares MD CT Angiography 12/25/17 0000 Signed Impressions: Service Date/Time: Monday, December 25, 2017 09:26 - CONCLUSION: 1. No CT evidence for pulmonary artery embolism. 2. Moderate to large bilateral pleural effusions with associated compressive atelectasis at the lung bases. 3. 8mm nodule in the right middle lobe. Followup CT examination may be performed at 6 months to document stability if this has not been evaluated previously. 4. Very mildly prominent mediastinal and hilar nodes and partially imaged upper abdominal lymphadenopathy in this patient with history of lymphoma. Miguel Ashton MD Objective Remarks General -72-year-old male currently orotracheally intubated HEENT - pupils are equal, reactive about 3 mm bilaterally, sclerae are anicteric , neck is supple, no rigidity, positive JVD, + LIJ CVC (01/01) -site remains clean, + ETT CV -RRR with ectopy. S1, S2 no S4. Without murmur Chest -coarse rhonchorous breath sounds bilaterally, no wheezes, good air entry , [id number] right chest -site remains clean Abdomen - soft, obese, appears non-tender, BS present, no hepatomegaly, no splenomegaly, + GJ tube Extremities - 2+ edema, + peripheral pulses, warm, no cyanosis Neuro - intubated, pupils equal and reactive, grimaces to pain but does not follow commands while on propofol drip. 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 Discussed with MRI brain. Rule out pontine CVA. She desires to wait additional day or 2 for prior sedative medications to "washout". Benefits and risks discussed with . She wishes to proceed with careful monitoring the present time. CV: Hypertension Dyslipidemia 2D echocardiogram revealed EF 65-70%. Tricuspid regurgitation. PA P 38 mmHg He is on aspirin 81 mg p.o. daily to Resp: Acute hypoxic hypercapnic respiratory failure secondary to aspiration pneumonia Right middle lobe pulmonary nodule 8 mm recommend 6 month follow-up CT chest COPD [facility] 16/10/19/39 Ventilator bundle Patient written for budesonide/formoterol 160/4.5 2 puffs twice daily. Albuterol/ipratropium aerosols every 6 hours with albuterol aerosols every 2 hours as needed dyspnea On prednisone [address] Blevins/pulmonology is following GI: Status post GJ conversion by IR 01/08 Hypoalbuminemia Lansoprazole 30 mg daily for GI prophylaxis Docusate sodium liquid 100 mg twice daily for bowel regimen On Megestrol 800 mg daily for anorexia Nutrition recommends vital 1.5 goal 60 cc an hour. : Hay catheter for accurate I's and O's in a critically ill patient Endo: Sliding scale insulin to maintain euglycemia/low regimen every 6 hours TSH is 1.18 Renal: Acute kidney injury likely secondary to sepsis/ATN Right-sided nephrolithiasis Urine eosinophils negative. Renal ultrasound reveals medical renal disease and prior CT abdomen/pelvis revealed non-obstructing right renal stones. Followed by Dr. 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 Followed by hematology No indication for transfusion of blood products at this time ID: Day #4 cefepime 2 g IV every 12 hours. Meropenem discontinued 01/08 Continue metronidazole 500 mg 3 times daily Followed by infectious disease for prescribing medication FEN: Hypernatremia Free water 150 cc every 6 hours Replace electrolytes as clinically indicated MSK: Sacral decubitus ulcer Wound care management Access Left IJ CVL placed 01/01 - 01/10 Right [id number] placed 12/20/17 Prophylaxis -GI -lansoprazole -DVT -SCD/heparin subcu Level 3 follow-up Pascual Bran MD Jan 11, 2018 14:19
[2018-01-11 17:09] LABS: ALBUMIN 1.5 GM/DL (3.4-5.0); BICARBONATE 23.2 MEQ/L (21.0-32.0); CALCIUM 7.5 MG/DL (8.5-10.1); CREATININE 3.35 MG/DL (0.60-1.30); PHOSPHORUS 3.9 MG/DL (2.5-4.9)
--- NOTE | 2018-01-11 18:13 | HHI.PR ---
Subjective Remarks Was intubated on 01/01 for aspiration and respiratory failure. Now on FIO2 40 % and PEEP at 5.On CPAP since this am. X ray chest shows Bilat infiltrates. On antibiotics. On Precedex now and seems to have less labored breathing Objective Vital Signs Date Time Temp Pulse Resp B/P (MAP) Pulse Ox O2 Delivery O2 Flow Rate FiO2 01/11/18 16:00 65 01/11/18 16:00 97.4 65 16 105/55 (72) 97 01/11/18 15:58 97 35 01/11/18 13:01 35 01/11/18 12:00 97.5 81 18 117/73 (88) 96 01/11/18 12:00 81 01/11/18 11:51 97 40 01/11/18 08:00 97.5 77 20 102/56 (71) 99 01/11/18 08:00 77 01/11/18 08:00 40 01/11/18 07:57 98 40 01/11/18 07:50 40 01/11/18 07:43 97 40 01/11/18 06:00 84 01/11/18 04:00 88 01/11/18 04:00 98.8 88 21 115/60 (78) 97 01/11/18 04:00 40 01/11/18 03:55 98 40 01/11/18 02:00 108 01/11/18 01:39 96 40 01/11/18 00:00 40 01/11/18 00:00 99 01/11/18 00:00 98.4 102 13 124/83 (97) 99 01/10/18 22:00 104 01/10/18 20:00 98.7 110 19 132/66 (88) 97 01/10/18 20:00 110 01/10/18 20:00 40 01/10/18 19:35 92 40 I/O 01/10/18 01/10/18 01/10/18 01/11/18 01/11/18 01/11/18 07:00 15:00 23:00 07:00 15:00 23:00 Intake Total 1180 ml 1013 ml 930 ml 350 ml 1238 ml Output Total 950 ml 480.0 ml 700 ml 550 ml 750 ml Balance 230 ml -480.0 ml 313 ml 380 ml 350 ml 488 ml IV Total 520 ml 100 ml 350 ml 165 ml Tube Feeding 660 ml 813 ml 730 ml 763 ml Tube Irrigant 100 ml 200 ml Other 310 ml Output Urine Total 950 ml 400 ml 350 ml 750 ml Stool Total 300 ml 200 ml 0 ml Gastric Drainage Total 240 ml 0 ml Tube Feeding Residual Discard 0 ml 240.0 ml # Bowel Movements 2 Result Diagram: 01/11/18 0422 01/11/18 1623 Procedures PEG tube placement. Bone Marrow Biopsy 12/25/17 Objective Remarks General appearance: This elderly white male is , on vent support. HEENT: Head normocephalic. Pupils reactive. Sclerae were clear Ears: No inflammation. Throat was clear. Neck: No bruits or thyroid enlargement or lymphadenopathy. Chest: Distant breath sounds with few crackles at both lung bases.Occ wheezes Cardiovascular: The heart sounds are regular, S1 and S2. No murmur. No S3. Abdomen: Is soft, benign. No masses. Extremities: No edema. Pt is sedated.Lethargic. Assessment and Plan Assessment and Plan IMPRESSION: 1. Bibasilar pleural effusions with atelectasis. 2. History of hypertension. 3. Hyperlipidemia. 4. COPD, emphysema. 5. History of Anaplastic NHL . 6. Respiratory Failure Plan : 1. Cont Antibiotics per ID 2 Wean FIo2 to keep sat >92 3. Prednisone 10 mg bid 4. Nebs qid , duoneb. 5. CPAP trial daily 02/23, FIo2 35 % 6. A/C Rate 10 at HS 7. Precedex for sedation 8. Resp parameters in am if more alert Katiuska Blevins MD Jan 11, 2018 18:13
[2018-01-12] VITALS (18 sets, daily range): BP systolic 109–158; BP diastolic 56–86; PULSE 70–112; RESP 18–28; TEMP 98–99.1; O2SAT 95–99
[2018-01-12] MEDS: DEXMEDETOMIDINE INJ 1,000 MCG in SODIUM CHLOR 0.9% 250 ML INJ 240 ML IV PRN ×2 (02:00→20:35)
[2018-01-12] MEDS: FREE WATER G-TUBE SCH ×4 (05:13→18:00)
[2018-01-12] MEDS: ARTIFICIAL TEARS OPTH SOLN 15 ML BTL EACH EYE SCH ×3 (05:13→20:36)
[2018-01-12] MEDS: HEPARIN SODIUM - SQ 10,000 UNITS/ML VIAL SQ SCH ×3 (05:48→20:36)
[2018-01-12] MEDS: metroNIDAZOLE 500 MG TAB PO SCH ×3 (05:48→20:34)
[2018-01-12 05:55] LABS: AUTOMATED NEUTROPHIL # 10.3 TH/MM3 (1.8-7.7); BASOPHIL % 0.3 % (0.0-2.0); HEMATOCRIT 23.9 % (39.0-51.0); HEMOGLOBIN 7.9 GM/DL (13.0-17.0); LYMPH % 2.8 % (9.0-44.0); LYMPHOCYTE # 0.3 TH/MM3 (1.0-4.8); MEAN CELL VOLUME 83.5 FL (80.0-100.0); MEAN CORPUSCULAR HEMOGLOBIN 27.7 PG (27.0-34.0); MEAN CORPUSCULAR HGB CONC 33.2 % (32.0-36.0); MEAN PLATELET VOLUME 9.7 FL (7.0-11.0); MONO % 3.7 % (0.0-8.0); MONOCYTE # 0.4 TH/MM3 (0-0.9); NEUT % 93.2 % (16.0-70.0); PLATELET COUNT 295 TH/MM3 (150-450); RED BLOOD COUNT 2.86 MIL/MM3 (4.50-5.90); RED CELL DISTRIBUTION WIDTH 17.9 % (11.6-17.2)
[2018-01-12] MEDS: INSULIN ASPART SUPPLEMENTAL SCALE SQ SCH ×4 (06:00→18:00)
[2018-01-12 06:13] LABS: CALCIUM 7.6 MG/DL (8.5-10.1); CREATININE 3.58 MG/DL (0.60-1.30)
[2018-01-12] MEDS: FUROSEMIDE INJ 100 MG in SODIUM CHLORIDE 0.9% INJ 90 ML IV SCH (06:20)
[2018-01-12 07:55] LABS: BANDS 5 % (0-6); MONOCYTES 1 % (0-8); NEUTROPHIL # MANUAL DIFF 10.9 TH/MM3 (1.8-7.7); POLYS (SEG NEUTROPHILS) 94 % (16-70)
[2018-01-12 07:56] LABS: DOHLE BODIES PRESENT (NONE SEEN)
[2018-01-12] MEDS: MEGESTROL ACETATE SUSP 400 MG/10 ML CUP PO SCH (08:37)
[2018-01-12] MEDS: LANSOPRAZOLE SOLUTAB 30 MG TAB G-TUBE SCH ×2 (08:38→20:36)
[2018-01-12] MEDS: DOCUSATE SODIUM 100 MG/10 ML UDC OG-TUBE SCH ×2 (08:39→20:35)
[2018-01-12] MEDS: predniSONE 10 MG TAB PO SCH ×2 (08:39→20:34)
[2018-01-12] MEDS: BUDESONIDE-FORMOTEROL 160/4.5 MCG INHALER INH SCH ×2 (08:40→20:38)
[2018-01-12] MEDS: ASPIRIN 81 MG CHEW TAB CHEW SCH (08:40)
[2018-01-12] MEDS: SODIUM CHLORIDE 0.9% FLUSH 10 ML FLUSH IV FLUSH SCH ×2 (08:40→20:37)
[2018-01-12] MEDS: CHLORHEXIDINE 0.12% (ORAL KIT) 15 ML CUP MT SCH ×2 (08:41→20:00)
[2018-01-12] MEDS: MULTIVITAMIN TAB PO SCH (08:41)
[2018-01-12] MEDS: RESP: ALBUTEROL 2.5 MG/IPRATROPIUM 0.5 MG NEB (SCH) NEB ×3 (08:49→20:32)
--- NOTE | 2018-01-12 09:16 | PD.ONC.PN ---
Subjective Subjective Remarks Afebrile overnight. patient remains intubated. On CPAP. sedated. at bedside. states she is still considering whether to proceed with HD which has been recommended by nephrology. Objective Data Date Time Temp Pulse Resp B/P (MAP) Pulse Ox O2 Delivery O2 Flow Rate FiO2 01/12/18 08:46 96 35 01/12/18 06:00 100 01/12/18 05:00 97 35 01/12/18 04:00 101 01/12/18 04:00 98.1 101 26 113/80 (91) 96 01/12/18 04:00 35 01/12/18 02:02 35 01/12/18 02:00 90 01/12/18 01:30 97 35 01/12/18 00:00 94 01/12/18 00:00 35 01/12/18 00:00 98.4 94 22 120/64 (82) 97 01/11/18 22:00 111 01/11/18 20:15 97 35 01/11/18 20:15 40 01/11/18 20:00 35 01/11/18 20:00 98.2 94 27 127/67 (87) 98 01/11/18 20:00 94 01/11/18 16:00 65 01/11/18 16:00 97.4 65 16 105/55 (72) 97 01/11/18 15:58 97 35 01/11/18 13:01 35 01/11/18 12:00 97.5 81 18 117/73 (88) 96 01/11/18 12:00 81 01/11/18 11:51 97 40 01/12/18 01/12/18 01/12/18 07:00 15:00 23:00 Intake Total 1578 ml Output Total 1251 ml Balance 327 ml Result Diagram: 01/12/18 0536 01/12/18 0536 Laboratory Results Laboratory Tests Test 01/11/18 16:23 01/12/18 05:36 Blood Urea Nitrogen 85 MG/DL 95 MG/DL Creatinine 3.35 MG/DL 3.58 MG/DL Random Glucose 124 MG/DL 152 MG/DL Albumin 1.5 GM/DL Calcium Level 7.5 MG/DL 7.6 MG/DL Phosphorus Level 3.9 MG/DL Sodium Level 148 MEQ/L 147 MEQ/L Potassium Level 4.4 MEQ/L 4.2 MEQ/L Chloride Level 116 MEQ/L 115 MEQ/L Carbon Dioxide Level 23.2 MEQ/L 21.0 MEQ/L Anion Gap 9 MEQ/L 11 MEQ/L Estimat Glomerular Filtration Rate 18 ML/MIN 17 ML/MIN Hepatitis A IgM Antibody NONREACTIVE Hepatitis B Surface Antigen NONREACTIVE Hepatitis B Core IgM Antibody NONREACTIVE Hepatitis C IgG Antibody NONREACTIVE White Blood Count 11.0 TH/MM3 Red Blood Count 2.86 MIL/MM3 Hemoglobin 7.9 GM/DL Hematocrit 23.9 % Mean Corpuscular Volume 83.5 FL Mean Corpuscular Hemoglobin 27.7 PG Mean Corpuscular Hemoglobin Concent 33.2 % Red Cell Distribution Width 17.9 % Platelet Count 295 TH/MM3 Mean Platelet Volume 9.7 FL Neutrophils (%) (Auto) 93.2 % Lymphocytes (%) (Auto) 2.8 % Monocytes (%) (Auto) 3.7 % Eosinophils (%) (Auto) 0.0 % Basophils (%) (Auto) 0.3 % Neutrophils # (Auto) 10.3 TH/MM3 Lymphocytes # (Auto) 0.3 TH/MM3 Monocytes # (Auto) 0.4 TH/MM3 Eosinophils # (Auto) 0.0 TH/MM3 Basophils # (Auto) 0.0 TH/MM3 CBC Comment AUTO DIFF Differential Total Cells Counted 100 Neutrophils % (Manual) 94 % Band Neutrophils % 5 % Monocytes % 1 % Neutrophils # (Manual) 10.9 TH/MM3 Differential Comment FINAL DIFF MANUAL Dohle Bodies PRESENT Platelet Estimate NORMAL Platelet Morphology Comment NORMAL Red Cell Morphology Comment NORMAL Administered Medications Medications (Trade) Dose Ordered Sig/Candace Route PRN Reason Start Time Stop Time Status Last Admin Dose Admin Sodium Chloride (NS Flush) 2 ml BID IV FLUSH 12/22/17 21:00 01/12/18 08:40 Ondansetron HCl (Zofran Inj) 4 mg Q6H PRN IVP NAUSEA OR VOMITING 12/22/17 18:15 01/01/18 10:02 Zolpidem Tartrate (Ambien) 5 mg HS PRN PO INSOMNIA 12/22/17 20:15 12/26/17 20:30 Megestrol Acetate (Megace Liq) 800 mg DAILY PO 12/23/17 09:00 01/12/18 08:37 Budesonide/ Formoterol Fumarate (Symbicort 160-4.5 Mcg Inh) 1 puff Q12HR INH 12/22/17 21:00 01/01/18 08:53 Atorvastatin Calcium (Lipitor) 80 mg DAILY PO 12/23/17 09:00 Future Hold 01/08/18 08:32 Multivitamins (Theragran) 1 tab DAILY PO 12/23/17 09:00 01/12/18 08:41 Heparin Sodium (Porcine) (Heparin Central Flush) 250 units UNSCH PRN IV FLUSH SEE PROTOCOL 12/22/17 20:30 12/27/17 20:27 Guaifenesin/ Dextromethorphan (Robitussin Dm 200-20 Mg/10 ml Liq) 10 ml Q4H PRN PO cough interfering with rest 12/22/17 21:00 12/26/17 18:27 Calcium Carbonate (Tums Chew) 500 mg Q12HR PRN CHEW indigestion 12/31/17 16:15 01/01/18 05:27 Prednisone (Deltasone) 10 mg BID PO 01/01/18 21:00 01/12/18 08:39 Chlorhexidine Gluconate (Peridex 0.12% Liq) 15 ml BID@08,20 MT 01/01/18 20:00 01/12/18 08:41 Norepinephrine Bitartrate 250 ml @ 7.5 mls/hr TITRATE PRN IV Blood pressure management 01/01/18 17:00 01/10/18 15:50 Propofol 100 ml @ 2.757 mls/ hr TITRATE PRN IV SEDATION 01/02/18 11:15 01/10/18 09:22 Insulin Aspart (NovoLOG SUPPLEMENTAL SCALE) 1 Q6HR SQ 01/07/18 18:00 01/12/18 06:00 Docusate Sodium (Colace Liq) 100 mg Q12HR OG-TUBE 01/07/18 21:00 01/12/18 08:39 Metronidazole (Flagyl) 500 mg Q8H PO 01/08/18 22:00 01/12/18 05:48 Lansoprazole (Prevacid Odt) 30 mg BID G-TUBE 01/09/18 21:00 01/12/18 08:38 Albuterol/ Ipratropium (Duoneb Neb) 1 ampule Q6HR WHILE AWAKE NEB NEB 01/09/18 14:00 01/12/18 08:49 Artificial Tears (Tears Naturale Opth Soln) 1 drop Q8HR EACH EYE 01/09/18 14:00 01/12/18 05:13 Heparin Sodium (Porcine) (Heparin Inj) 5,000 units Q8HR SQ 01/09/18 14:00 01/12/18 05:48 Aspirin (Aspirin Chew) 81 mg DAILY CHEW 01/10/18 11:00 01/12/18 08:40 Dexmedetomidine HCl 1000 mcg/ Sodium Chloride 250 ml @ 4.76 mls/hr TITRATE PRN IV SEDATION 01/10/18 13:45 01/12/18 02:00 Water (Free Water) VOLUME: 150 ML Q6HR G-TUBE 01/10/18 18:00 01/12/18 05:13 Furosemide 100 mg/ Sodium Chloride 100 ml @ 5 mls/hr CONTINUOUS IV 01/11/18 13:00 01/12/18 06:20 Objective Remarks GENERAL: Intubated male, supine in bed, sedated. SKIN: Warm and dry. HEAD: Normocephalic. EYES: No injection or drainage. NECK: Supple, trachea midline. CARDIOVASCULAR: +S1/S2 RESPIRATORY: on CPAP via OT intubation. anterior clark clear. GASTROINTESTINAL: Abdomen non-distended. On TF via GJ tube EXTREMITIES: No cyanosis. +upper and lower extremity edema. 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 considering hemodialysis per nephrology recommendations. next chemotherapy would be next week if patient improved 01/11: WBC remains recovered, renal function continuing to decline. patient remains intubated. plan from oncology standpoint is to give a second round of chemotherapy if he clinically improves. 01/10: patient remains critically ill, intubated and is currently minimally responsive off sedation. will hold chemotherapy until clinically improved. 01/09: Next cycle of CHOP chemo is due next week; we will likely hold this until he is more stable. Continue to monitor CBC. 01/08: monitor CBC, WBC is recovered. 01/07: Continue neupogen x 1 more day. Monitor CBC. Transfuse 1 unit packed red blood cells if hemoglobin trending down tomorrow. CXR shows worsening disease. Abx per ID, Vent mgmt by plant specialist. 01/06: Patient no longer neutropenic. Continue Neupogen today. Monitor CBC. 01/05: Noted white blood cells minimally improved. Continue Neupogen for now. Await results from CT brain. Supportive care. 01/04: remains on vent. Off pf pressors. Pancytopenia with Neutropenia. Continue neupogen. Vent management per [employer] Vice President. Extensive d/w and DIL ( CAR SERVICER) . answered their questions. Continue maximal support. 01/03: Continue Neupogen. Transfuse 1 unit packed red blood cells today for hemoglobin of 7.5. Monitor CBC. 01/02: patient remains intubated, sedated. start Neupogen for neutropenia + infection 01/01: patient in respiratory failure. intubated and transferring to intensive care. 12/31: C. difficile negative. Bone marrow biopsy shows no lymphoma involvement. Cytology from thoracentesis pending. Transfuse 1 unit PRBC for symptomatic with hgb 7.7. Patient would benefit from inpatient rehab for strengthening 12/28: continue solu-medrol. await thoracentesis. consult OT. 12/27: start Solu-medrol 40mg IV q 6. consult pulmonology for worsening infiltrates, pleural effusions. monitor CBC, counts dropping. 12/26: CT chest shows Bilateral Pl effusion. Continue aggressive diuresis. Had CHOP C1D1 yesterday. Tolerated well. Next chemo in 3 weeks as outpt. Continue allopurinol and prednisone. 12/25: CTA shows no PE. +LAD, PE. dyspnea likely d/t lymphoma. will give Solu- medrol 1g IV and start CHOP today. Anaplastic large cell, non-Hodgkin's lymphoma, at least stage III. --unclear whether he has any B symptoms, but this could be most likely given that he has significant weight loss, which is one of the symptoms of lymphoma. --Leukocytosis, anemia and neutrophilia, most likely due to bone marrow involvement by the lymphoma until proven otherwise. (2) Renal insufficiency ICD Codes: N28.9 - Disorder of kidney and ureter, unspecified Plan: --Nephrology following. --unclear etiology Assessment 72y/o male with newly diagnosed anaplastic large cell NHL. h/o COPD, hypercholesterolemia, hypertension, history of previous stroke. HPI: started 8 weeks ago with a cough mixed with greenish phlegm and shortness of breath. CT cap showed diffuse lymphadenopathy on both sides of the diaphragm. PET scan showed increased uptake in the lymph nodes involving the neck, chest, mediastinal and hilar area, retroperitoneum and pelvic lymph nodes. biopsy of the left neck mass=anaplastic large cell NHL echocardiogram, LVEF=55-70%. MUGA scan, showed EF of 60%. Attending Statement The exam, history, and the medical decision-making described in the above note were completed with the assistance of the mid-level provider. I reviewed and agree with the findings presented. I attest that I had a [id number] encounter with the patient on the same day, and personally performed and documented my assessment and findings in the medical record. Remains intubated but awake. CBC stable. Still has renal failure. Discussed with pt's brother in law. Continue supportive care. Susy La Jan 12, 2018 09:16 Jose Angel Davis MD Jan 12, 2018 12:31
--- NOTE | 2018-01-12 12:24 | HHI.NPPN ---
Subjective History of Present Illness 72-year-old male with history of large cell lymphoma, acute renal failure, respiratory failure on ventilator Additional Remarks Patient remain intubated and sedated. Objective Data Data 01/12/18 01/13/18 19:00 07:00 Output Total 0 ml Balance 0 ml Tube Feeding Residual Discard 0 ml Vital Signs Date Time Temp Pulse Resp B/P (MAP) Pulse Ox O2 Delivery O2 Flow Rate FiO2 01/12/18 10:00 102 01/12/18 08:46 96 35 01/12/18 08:00 84 01/12/18 08:00 35 01/12/18 08:00 99.1 99 25 119/74 (89) 98 01/12/18 06:00 100 01/12/18 05:00 97 35 01/12/18 04:00 101 01/12/18 04:00 98.1 101 26 113/80 (91) 96 01/12/18 04:00 35 01/12/18 02:02 35 01/12/18 02:00 90 01/12/18 01:30 97 35 01/12/18 00:00 94 01/12/18 00:00 35 01/12/18 00:00 98.4 94 22 120/64 (82) 97 01/11/18 22:00 111 01/11/18 20:15 97 35 01/11/18 20:15 40 01/11/18 20:00 35 01/11/18 20:00 98.2 94 27 127/67 (87) 98 01/11/18 20:00 94 01/11/18 16:00 65 01/11/18 16:00 97.4 65 16 105/55 (72) 97 01/11/18 15:58 97 35 01/11/18 13:01 35 -: 01/12/18 0536 01/12/18 0536 Physical Exam General Appearance Remarks Intubated and sedated. Neck Neck Exam: Neck Supple Pulmonary Resp Exam: Rhonchi Cardiology CV Exam: Regular, Normal Sinus Rhythm Gastrointestinal/Abdomen GI Exam: Soft, Non-Tender, Bowel Sounds Present Extremeties Extremities Exam: Moderate Edema, Pitting Edema, Dependent Edema Neurologic Neuro Exam: Sedated Assessment/Plan Problem List: (1) Acute renal failure ICD Codes: N17.9 - Acute kidney failure, unspecified Status: Acute Plan: he has sepsis contributing to ARF FeNa low <1 edema worse Urine output is about 2 liters in 24 hrs. FACr 3.17 Higher Chest x-ray showed fluid overload has peripheral edema Creatinine increase to 3.5. Continue Lasix, if continue to get worse, possibly HD. 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
--- NOTE | 2018-01-12 13:17 | HHI.CCPN ---
Subjective Remarks/Hospital Course 01/01: 72-year-old gentleman with history of hypertension, hyperlipidemia and previous CVA, COPD, now newly diagnosed with anaplastic large cell non-Hodgkin' s lymphoma now transferred from [facility] on 12/23 for further treatment. On 12/25 patient received chemotherapy -CHOP regimen. Hospitalization further significant for PEG placement due to malnutrition and lack of appetite and thoracentesis for pleural effusion. Patient was being followed by pulmonary, cardiology and hematology services. Over the night patient had increased O2 requirements with high tube feed residual and concern for aspiration. A rapid response was called earlier this afternoon for worsening hypoxia despite NRM. Patient was emergently intubated and upon intubation he was found to have significant amount of tube feeds in the airway. An NG tube was placed on suction with 750 cc suctioned from the stomach. Patient was started on midazolam and fentanyl drips and phenylephrine for BP support. Patient was seen immediately on ICU arrival, 100% O2 with SPO2 100%. Patient requires 20 mics per minute of phenylephrine infusion. He is intubated and sedated, unresponsive. 01/02: No events over the night. Patient remains critically ill. He is currently sedated and intubated. He remains on phenylephrine at 80 mics per minute. FiO2 down to 0.6. T-max 98.6, I/O 1550/400. 01/03: Patient did well over the night. Norepinephrine weaned off. FiO2 currently at 0.5. Patient remains on a PEEP of 10. Sedation accomplished with propofol and fentanyl. Tmax 98.4. 01/04: Multiple episodes of diarrhea overnight. No C. difficile sent. Urine output decreased, 300 mL's over last 12 hours. Patient does not require any pressors, sedation is maintained with propofol at 30 and fentanyl at 150. During sedation vacation patient moves all extremities, agitated, but does not follow commands. Currently he is sedated and intubated. Morning chest x-ray reviewed, slight improvement in bibasilar infiltrates. 01/05: No events over the night. T-max of 98.6. Urine output 550 mL's over the last 24 hours. Ventilator on 0.4 FiO2. Sedation was stopped this morning, patient agitated moving all extremities but not following commands. Morning chest x-ray reviewed, no significant change compared to yesterday's, ET tube approximately 7 cm above clem. 01/06: Patient remains afebrile, on no pressors. Oxygenation down to 0.4 FiO2, but PEEP remains at 10. Trickle feeds started yesterday, still having residuals. Patient remains on low-dose propofol and fentanyl for sedation. Morning chest x-ray reviewed, still with bibasilar opacities, unchanged. 01/07: Remains sedated, orally intubated on mechanical ventilation. Fentanyl at 150 mics per minute decreased to 50 mics per minute. Abdomen remains distended. Tolerating tube feeds at 20 cc/h with residual 60 cc. 01/08: Sedated, orally intubated on mechanical ventilation. Had large amount of BM last night following Relistor. On tube feeds at 20 cc per hour. 01/09: Currently on propofol drip at 40 mcg/kg/min. Afebrile. GJ tube per IR yesterday. Tube feeds were restarted. at bedside. Continue to diuresis furosemide/albumin 01/10: Currently off all sedation. Transitioning to dexmedetomidine drip. Tolerating tube feeds via GJ tube. Positive BM. Creatinine up to 3.1. Blinks eyes to commands but not moving extremities. Withdraws to pain. 01/11: Afebrile. Long discussion with . Nephrology wishes to initiate hemodialysis today. Benefits and risks discussed. She wishes to wait another day to see if he has any significant recovery. Nephrology will give extra furosemide today. Subjective 01/12: More awake today. Follows commands. Eyes are open. Moves all 4 extremities spontaneously. does not wish to pursue hemodialysis today. Requesting decreasing furosemide drip to 2.5 mg/h due to "elevated BUN". Objective Vital Signs Date Time Temp Pulse Resp B/P (MAP) Pulse Ox O2 Delivery O2 Flow Rate FiO2 01/12/18 10:00 102 01/12/18 08:46 96 35 01/12/18 08:00 99.1 25 119/74 (89) 01/08/18 09:17 Ventilator Intake and Output 01/12/18 01/12/18 01/13/18 08:00 16:00 00:00 Intake Total 1578 ml Output Total 1251.0 ml Balance 327.0 ml Result Diagram: 01/12/18 0536 01/12/18 0536 Other Results Microbiology Date/Time Source Procedure Growth Status 01/01/18 17:57 Blood Peripheral Aerobic Blood Culture - Final NO GROWTH IN 5 DAYS Complete 01/01/18 17:57 Blood Peripheral Anaerobic Blood Culture - Final NO GROWTH IN 5 DAYS Complete 12/28/17 12:15 Fluid Pleural Fluid Fungal Smear - Final NO FUNGAL ELEMENTS SEEN. Resulted 12/28/17 12:15 Fluid Pleural Fluid Fungal Culture - Preliminary NO GROWTH IN 2 WEEKS Resulted 01/01/18 17:15 Sputum Endotracheal Gram Stain - Final Complete 01/01/18 17:15 Sputum Endotracheal Sputum Culture - Final HEAVY GROWTH NORMAL RESPIRATORY LISA Complete 01/01/18 17:15 Urine Catheterized Urine Urine Culture - Final NO GROWTH IN 48 HOURS. Complete Imaging Last Impressions Chest X-Ray 01/11/18 0600 Signed Impressions: Service Date/Time: Thursday, January 11, 2018 04:00 - CONCLUSION: Right greater than left parenchymal consolidation and small moderate right, small left pleural effusions not significantly changed. Andres Parekh MD Gastrostomy Tube Change 01/08/18 0000 Signed Impressions: Service Date/Time: Monday, January 08, 2018 14:35 - CONCLUSION: Conversion of the patient's existing gastrostomy tube to a gastrojejunostomy tube. Siva Bean Jr., MD Renal Ultrasound 01/05/18 0000 Signed Impressions: Service Date/Time: Friday, January 05, 2018 08:00 - CONCLUSION: Echogenic kidneys suggesting medical renal disease. Some ascites. Bilateral pleural effusions. Lee Mijares MD Head CT 01/05/18 0000 Signed Impressions: Service Date/Time: Friday, January 05, 2018 11:41 - CONCLUSION: 1. No acute abnormality is seen. 2. Old lacunar infarct at the left basal ganglia. 3. Fluid in the mastoid air cells on the right. Andres Valero MD Small Bowel X-Ray 01/03/18 0000 Signed Impressions: Service Date/Time: December 14:27 - CONCLUSION: 1. No leakage identified on injection through gastrostomy tube. No small bowel obstruction or significant dilatation. Elbert Carrasquillo MD Abdomen/Pelvis CT 01/02/18 0000 Signed Impressions: Service Date/Time: Tuesday, January 02, 2018 21:38 - CONCLUSION: 1. Free intraperitoneal air of unknown etiology. On the supine view most of the free air is around the gastrostomy tube and tip of the nasogastric tube as discussed above. 2. Mild to moderate ascites. Moderate anasarca. 3. Moderate bilateral effusions with basilar atelectasis. 4. Nonobstructing right renal calculus. Hay catheter in bladder. Elbert Carrasquillo MD Chest CT 12/30/17 0000 Signed Impressions: Service Date/Time: Saturday, December 30, 2017 21:13 - CONCLUSION: 1. Free intraperitoneal air in the upper abdomen of uncertain etiology. There is a gastrostomy present. 2. Moderate bilateral pleural effusions with compressive atelectasis. Patchy air space consolidation in the right upper lobe. 3. Moderate anasarca and ascites. 4. Findings called to the floor at the time of dictation. Elbert Carrasquillo MD Chest Ultrasound 12/27/17 0000 Signed Impressions: Service Date/Time: December 21:39 - CONCLUSION: Large left pleural effusion and would be amenable to thoracentesis. Frandy was made on the overlying skin. Andres Parekh MD Bone Biopsy CT 12/25/17 1142 Signed Impressions: Service Date/Time: Monday, December 25, 2017 12:32 - CONCLUSION: 1. Uncomplicated CT guided bone marrow aspirate. 2. Uncomplicated CT guided bone marrow biopsy. Lee Mijares MD CT Angiography 12/25/17 0000 Signed Impressions: Service Date/Time: Monday, December 25, 2017 09:26 - CONCLUSION: 1. No CT evidence for pulmonary artery embolism. 2. Moderate to large bilateral pleural effusions with associated compressive atelectasis at the lung bases. 3. 8mm nodule in the right middle lobe. Followup CT examination may be performed at 6 months to document stability if this has not been evaluated previously. 4. Very mildly prominent mediastinal and hilar nodes and partially imaged upper abdominal lymphadenopathy in this patient with history of lymphoma. Miguel Ashton MD Objective Remarks General -72-year-old male currently orotracheally intubated HEENT - pupils are equal, reactive about 3 mm bilaterally, sclerae are anicteric , neck is supple, no rigidity, positive JVD, + LIJ CVC (01/01) -site remains clean, + ETT CV -RRR with ectopy. S1, S2 no S4. Without murmur Chest -coarse rhonchorous breath sounds bilaterally, no wheezes, good air entry , Ybtisv-x-Osap right chest -site remains clean Abdomen - soft, obese, appears non-tender, BS present, no hepatomegaly, no splenomegaly, + GJ tube Extremities - 2+ edema, + peripheral pulses, warm, no cyanosis Neuro - intubated, pupils equal and reactive, grimaces to pain but does not follow commands while on propofol drip. 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 Discussed with MRI brain. Rule out pontine CVA. She desires to wait additional day or 2 for prior sedative medications to "washout". Benefits and risks discussed with . She wishes to proceed with careful monitoring the present time. CV: Hypertension Dyslipidemia 2D echocardiogram revealed EF 65-70%. Tricuspid regurgitation. PA P 38 mmHg He is on aspirin 81 mg p.o. daily to Resp: Acute hypoxic hypercapnic respiratory failure secondary to aspiration pneumonia Right middle lobe pulmonary nodule 8 mm recommend 6 month follow-up CT chest COPD PRVC 16/500/1/5/40 PSV 15/5 at 40% Ventilator bundle Patient written for budesonide/formoterol 160/4.5 2 puffs twice daily. Albuterol/ipratropium aerosols every 6 hours with albuterol aerosols every 2 hours as needed dyspnea On prednisone [address] Blevins/pulmonology is following GI: Status post GJ conversion by IR 01/08 Hypoalbuminemia Lansoprazole 30 mg daily for GI prophylaxis Docusate sodium liquid 100 mg twice daily for bowel regimen On Megestrol 800 mg daily for anorexia Nutrition recommends vital 1.5 goal 60 cc an hour.. On Nepro at 50 cc an hour due to renal failure : Hay catheter for accurate I's and O's in a critically ill patient Endo: Sliding scale insulin to maintain euglycemia/low regimen every 6 hours TSH is 1.18 Renal: Acute kidney injury likely secondary to sepsis/ATN Right-sided nephrolithiasis Urine eosinophils negative. Renal ultrasound reveals medical renal disease and prior CT abdomen/pelvis revealed non-obstructing right renal stones. Followed by Dr. 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 Followed by hematology. Restart chemotherapy when clinically stable No indication for transfusion of blood products at this time ID: Day #5 cefepime 2 g IV every 12 hours. Meropenem discontinued 01/08 Continue metronidazole 500 mg 3 times daily Followed by infectious disease for prescribing medication FEN: Hypernatremia Free water 150 cc every 6 hours Replace electrolytes as clinically indicated MSK: Sacral decubitus ulcer Wound care management Access Left IJ CVL placed 01/01 - 01/10 Right Njanxj-h-Bdzd placed 12/20/17 Prophylaxis -GI -lansoprazole -DVT -SCD/heparin subcu Level 3 follow-up. Discussed with . Care plan discussed and all questions answered Pascual Bran MD Jan 12, 2018 13:17
[2018-01-12] MEDS ORDERED: FUROSEMIDE INJ 100 MG in SODIUM CHLORIDE 0.9% INJ 90 ML IV SCH ×2 (13:30→16:00)
[2018-01-12] MEDS: ALBUMIN 25% INJ 50 ML IV SCH (15:16)
--- NOTE | 2018-01-12 16:26 | HHI.PR ---
Subjective Remarks alert on BIPAP si9nce 2:30 am fighting vent wants tube out parameters not easy to do , patient not cooperating Objective Vital Signs Date Time Temp Pulse Resp B/P (MAP) Pulse Ox O2 Delivery O2 Flow Rate FiO2 01/12/18 15:06 96 35 01/12/18 10:00 102 01/12/18 08:46 96 35 01/12/18 08:00 84 01/12/18 08:00 35 01/12/18 08:00 99.1 99 25 119/74 (89) 98 01/12/18 06:00 100 01/12/18 05:00 97 35 01/12/18 04:00 101 01/12/18 04:00 98.1 101 26 113/80 (91) 96 01/12/18 04:00 35 01/12/18 02:02 35 01/12/18 02:00 90 01/12/18 01:30 97 35 01/12/18 00:00 94 01/12/18 00:00 35 01/12/18 00:00 98.4 94 22 120/64 (82) 97 01/11/18 22:00 111 01/11/18 20:15 97 35 01/11/18 20:15 40 01/11/18 20:00 35 01/11/18 20:00 98.2 94 27 127/67 (87) 98 01/11/18 20:00 94 I/O 01/11/18 01/11/18 01/11/18 01/12/18 01/12/18 01/12/18 07:00 15:00 23:00 07:00 15:00 23:00 Intake Total 930 ml 350 ml 1238 ml 1578 ml Output Total 550 ml 750.0 ml 1251 ml 0 ml Balance 380 ml 350 ml 488.0 ml 327 ml 0 ml IV Total 350 ml 165 ml 450 ml Tube Feeding 730 ml 763 ml 808 ml Tube Irrigant 200 ml Other 310 ml 320 ml Output Urine Total 350 ml 750 ml 1250 ml Stool Total 200 ml 0 ml 1 ml Gastric Drainage Total 0 ml Tube Feeding Residual Discard 0 ml 0 ml 0 ml Result Diagram: 01/12/1836 01/12/18535 Procedures PEG tube placement. Bone Marrow Biopsy 12/25/17 Medications and IVs GENERAL: SKIN: Warm and dry.on the ventilator HEAD: Atraumatic. Normocephalic. EYES: Pupils equal and round. No scleral icterus. No injection or drainage. ENT: No nasal bleeding or discharge. Mucous membranes pink and moist. NECK: Trachea midline. No JVD. CARDIOVASCULAR: Regular rate and rhythm. RESPIRATORY: No accessory muscle use. Clear to auscultation. Breath sounds equal bilaterally. GASTROINTESTINAL: Abdomen soft, non-tender, nondistended. Hepatic and splenic margins not palpable. MUSCULOSKELETAL: Extremities without clubbing, cyanosis, or edema. No obvious deformities. NEUROLOGICAL: Awake and alert. No obvious cranial nerve deficits. Motor grossly within normal limits. Five out of 5 muscle strength in the arms and legs. Normal speech. PSYCHIATRIC: Appropriate mood and affect; insight and judgment normal. Assessment and Plan Assessment and Plan impression respiratory failure pna lymphoma plan wean off vent antibx pulm toilet increase activity Stephanie Brown MD Jan 12, 2018 16:26
[2018-01-12] MEDS: CEFEPIME INJ 2,000 MG in SODIUM CHLORIDE 0.9% INJ 100 ML IV SCH (20:35)
[2018-01-13] VITALS (17 sets, daily range): BP systolic 113–128; BP diastolic 60–90; PULSE 62–107; RESP 15–25; TEMP 97.5–99.2; O2SAT 95–100
[2018-01-13] MEDS: ALBUMIN 25% INJ 50 ML IV SCH ×2 (02:59→13:27)
[2018-01-13] MEDS: INSULIN ASPART SUPPLEMENTAL SCALE SQ SCH ×5 (06:00→23:56)
[2018-01-13] MEDS: FREE WATER G-TUBE SCH ×5 (06:00→23:56)
[2018-01-13] MEDS: ARTIFICIAL TEARS OPTH SOLN 15 ML BTL EACH EYE SCH ×3 (06:00→21:20)
[2018-01-13] MEDS: metroNIDAZOLE 500 MG TAB PO SCH ×3 (06:08→21:19)
[2018-01-13] MEDS: HEPARIN SODIUM - SQ 10,000 UNITS/ML VIAL SQ SCH ×3 (06:09→21:19)
[2018-01-13] MEDS ORDERED: DEXMEDETOMIDINE INJ 200 MCG in SODIUM CHLORIDE 0.9% INJ 50 ML IV PRN (07:00)
[2018-01-13] MEDS ORDERED: ROCURONIUM INJ 100 MG/10 ML VIAL IV ONE (07:00)
[2018-01-13] MEDS ORDERED: ETOMIDATE 20 MG/10 ML VIAL IV PUSH ONE (07:00)
--- NOTE | 2018-01-13 07:55 | PD.PROCEDR ---
Procedure Note Procedure DATE: 01/13/2018 PROCEDURE: Orotracheal intubation INDICATION: Acute hypoxemic hypercapnic respiratory failure DETAILS OF PROCEDURE The patient was placed in optimal position and preoxygenated with 100% FiO2 via bag valve mask. At the start oxygen saturation was 98%. The patient was administered 20 milligrams etomidate IV. I entered the oropharynx with a size 4 GVL Glidescope and obtained a grade 2 view of the airway. On single attempt a size 8.0 cuffed endotracheal tube was passed through the vocal cords. Correct tube location was confirmed with end tidal CO2 detector and by auscultating over bilateral lung clark. The endotracheal tube was secured with adhesive tape at a depth of 24 cm at the lips. The patient was connected to the ventilator. The patient tolerated the procedure well without any apparent complications. Oxygen saturations were maintained greater than 95% all times. STAT chest x-ray pending at time of dictation. Pascual Bran MD Jan 13, 2018 07:55
--- NOTE | 2018-01-13 07:57 | HHI.CCPN ---
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 On 12/25 patient received chemotherapy -CHOP regimen. Hospitalization further significant for PEG placement due to malnutrition and lack of appetite and thoracentesis for pleural effusion. Patient was being followed by pulmonary, cardiology and hematology services. Over the night patient had increased O2 requirements with high tube feed residual and concern for aspiration. A rapid response was called earlier this afternoon for worsening hypoxia despite NRM. Patient was emergently intubated and upon intubation he was found to have significant amount of tube feeds in the airway. An NG tube was placed on suction with 750 cc suctioned from the stomach. Patient was started on midazolam and fentanyl drips and phenylephrine for BP support. Patient was seen immediately on ICU arrival, 100% O2 with SPO2 100%. Patient requires 20 mics per minute of phenylephrine infusion. He is intubated and sedated, unresponsive. 01/02: No events over the night. Patient remains critically ill. He is currently sedated and intubated. He remains on phenylephrine at 80 mics per minute. FiO2 down to 0.6. T-max 98.6, I/O 1550/400. 01/03: Patient did well over the night. Norepinephrine weaned off. FiO2 currently at 0.5. Patient remains on a PEEP of 10. Sedation accomplished with propofol and fentanyl. Tmax 98.4. 01/04: Multiple episodes of diarrhea overnight. No C. difficile sent. Urine output decreased, 300 mL's over last 12 hours. Patient does not require any pressors, sedation is maintained with propofol at 30 and fentanyl at 150. During sedation vacation patient moves all extremities, agitated, but does not follow commands. Currently he is sedated and intubated. Morning chest x-ray reviewed, slight improvement in bibasilar infiltrates. 01/05: No events over the night. T-max of 98.6. Urine output 550 mL's over the last 24 hours. Ventilator on 0.4 FiO2. Sedation was stopped this morning, patient agitated moving all extremities but not following commands. Morning chest x-ray reviewed, no significant change compared to yesterday's, ET tube approximately 7 cm above clem. 01/06: Patient remains afebrile, on no pressors. Oxygenation down to 0.4 FiO2, but PEEP remains at 10. Trickle feeds started yesterday, still having residuals. Patient remains on low-dose propofol and fentanyl for sedation. Morning chest x-ray reviewed, still with bibasilar opacities, unchanged. 01/07: Remains sedated, orally intubated on mechanical ventilation. Fentanyl at 150 mics per minute decreased to 50 mics per minute. Abdomen remains distended. Tolerating tube feeds at 20 cc/h with residual 60 cc. 01/08: Sedated, orally intubated on mechanical ventilation. Had large amount of BM last night following Relistor. On tube feeds at 20 cc per hour. 01/09: Currently on propofol drip at 40 mcg/kg/min. Afebrile. GJ tube per IR yesterday. Tube feeds were restarted. at bedside. Continue to diuresis furosemide/albumin 01/10: Currently off all sedation. Transitioning to dexmedetomidine drip. Tolerating tube feeds via GJ tube. Positive BM. Creatinine up to 3.1. Blinks eyes to commands but not moving extremities. Withdraws to pain. 01/11: Afebrile. Long discussion with . Nephrology wishes to initiate hemodialysis today. Benefits and risks discussed. She wishes to wait another day to see if he has any significant recovery. Nephrology will give extra furosemide today. 01/12: More awake today. Follows commands. Eyes are open. Moves all 4 extremities spontaneously. does not wish to pursue hemodialysis today. Requesting decreasing furosemide drip to 2.5 mg/h due to "elevated BUN". Subjective 01/13: Intubated this a.m. due to acute hypoxic hypercapnic respiratory failure/ actively aspirating. Follow-up chest x-ray and ABG pending. Discussed with at bedside. A.m. laboratories all pending Objective Vital Signs Date Time Temp Pulse Resp B/P (MAP) Pulse Ox O2 Delivery O2 Flow Rate FiO2 01/13/18 06:57 97 Partial Rebreather 15.00 100 01/13/18 04:00 98.6 76 18 123/60 (81) Intake and Output 01/13/18 01/13/18 01/14/18 08:00 16:00 00:00 Intake Total 959 ml Output Total 1900 ml Balance -941 ml Result Diagram: 01/12/18 0536 01/12/18 0536 Other Results Microbiology Date/Time Source Procedure Growth Status 01/01/18 17:57 Blood Peripheral Aerobic Blood Culture - Final NO GROWTH IN 5 DAYS Complete 01/01/18 17:57 Blood Peripheral Anaerobic Blood Culture - Final NO GROWTH IN 5 DAYS Complete 12/28/17 12:15 Fluid Pleural Fluid Fungal Smear - Final NO FUNGAL ELEMENTS SEEN. Resulted 12/28/17 12:15 Fluid Pleural Fluid Fungal Culture - Preliminary NO GROWTH IN 2 WEEKS Resulted 01/01/18 17:15 Sputum Endotracheal Gram Stain - Final Complete 01/01/18 17:15 Sputum Endotracheal Sputum Culture - Final HEAVY GROWTH NORMAL RESPIRATORY LISA Complete 01/01/18 17:15 Urine Catheterized Urine Urine Culture - Final NO GROWTH IN 48 HOURS. Complete Imaging Last Impressions Chest X-Ray 01/11/18 0600 Signed Impressions: Service Date/Time: Thursday, January 11, 2018 04:00 - CONCLUSION: Right greater than left parenchymal consolidation and small moderate right, small left pleural effusions not significantly changed. Andres Parekh MD Gastrostomy Tube Change 01/08/18 0000 Signed Impressions: Service Date/Time: Monday, January 08, 2018 14:35 - CONCLUSION: Conversion of the patient's existing gastrostomy tube to a gastrojejunostomy tube. Siva Bean Jr., MD Renal Ultrasound 01/05/18 0000 Signed Impressions: Service Date/Time: Friday, January 05, 2018 08:00 - CONCLUSION: Echogenic kidneys suggesting medical renal disease. Some ascites. Bilateral pleural effusions. Lee Mijares MD Head CT 01/05/18 0000 Signed Impressions: Service Date/Time: Friday, January 05, 2018 11:41 - CONCLUSION: 1. No acute abnormality is seen. 2. Old lacunar infarct at the left basal ganglia. 3. Fluid in the mastoid air cells on the right. Andres Valero MD Small Bowel X-Ray 01/03/18 0000 Signed Impressions: Service Date/Time: December 14:27 - CONCLUSION: 1. No leakage identified on injection through gastrostomy tube. No small bowel obstruction or significant dilatation. Elbert Carrasquillo MD Abdomen/Pelvis CT 01/02/18 0000 Signed Impressions: Service Date/Time: Tuesday, January 02, 2018 21:38 - CONCLUSION: 1. Free intraperitoneal air of unknown etiology. On the supine view most of the free air is around the gastrostomy tube and tip of the nasogastric tube as discussed above. 2. Mild to moderate ascites. Moderate anasarca. 3. Moderate bilateral effusions with basilar atelectasis. 4. Nonobstructing right renal calculus. Hay catheter in bladder. Elbert Carrasquillo MD Chest CT 12/30/17 0000 Signed Impressions: Service Date/Time: Saturday, December 30, 2017 21:13 - CONCLUSION: 1. Free intraperitoneal air in the upper abdomen of uncertain etiology. There is a gastrostomy present. 2. Moderate bilateral pleural effusions with compressive atelectasis. Patchy air space consolidation in the right upper lobe. 3. Moderate anasarca and ascites. 4. Findings called to the floor at the time of dictation. Elbert Carrasquillo MD Chest Ultrasound 12/27/17 0000 Signed Impressions: Service Date/Time: December 21:39 - CONCLUSION: Large left pleural effusion and would be amenable to thoracentesis. Frandy was made on the overlying skin. Andres Parekh MD Bone Biopsy CT 12/25/17 1142 Signed Impressions: Service Date/Time: Monday, December 25, 2017 12:32 - CONCLUSION: 1. Uncomplicated CT guided bone marrow aspirate. 2. Uncomplicated CT guided bone marrow biopsy. Lee Mijares MD CT Angiography 12/25/17 0000 Signed Impressions: Service Date/Time: Monday, December 25, 2017 09:26 - CONCLUSION: 1. No CT evidence for pulmonary artery embolism. 2. Moderate to large bilateral pleural effusions with associated compressive atelectasis at the lung bases. 3. 8mm nodule in the right middle lobe. Followup CT examination may be performed at 6 months to document stability if this has not been evaluated previously. 4. Very mildly prominent mediastinal and hilar nodes and partially imaged upper abdominal lymphadenopathy in this patient with history of lymphoma. Miguel Ashton MD Objective Remarks General -72-year-old male currently orotracheally intubated HEENT - pupils are equal, reactive about 3 mm bilaterally, sclerae are anicteric , neck is supple, no rigidity, positive JVD, + LIJ CVC (01/01) -site remains clean, + ETT CV -RRR with ectopy. S1, S2 no S4. Without murmur Chest -coarse rhonchorous breath sounds bilaterally, no wheezes, good air entry , Pvsoyv-e-Ebxi right chest -site remains clean Abdomen - soft, obese, appears non-tender, BS present, no hepatomegaly, no splenomegaly, + GJ tube Extremities - 2+ edema, + peripheral pulses, warm, no cyanosis Neuro - intubated, pupils equal and reactive, grimaces to pain but does not follow commands while on propofol drip. 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 Discussed with MRI brain. Rule out pontine CVA. She desires to wait additional day or 2 for prior sedative medications to "washout". Benefits and risks discussed with . She wishes to proceed with careful monitoring the present time. CV: Hypertension Dyslipidemia 2D echocardiogram revealed EF 65-70%. Tricuspid regurgitation. PA P 38 mmHg He is on aspirin 81 mg p.o. daily Currently not requiring antihypertensives and/or vasopressors Resp: Acute hypoxic hypercapnic respiratory failure secondary to aspiration pneumonia Right middle lobe pulmonary nodule 8 mm recommend 6 month follow-up CT chest COPD PRVC 16/500/1/5/40 PSV 15/5 at 40% later this afternoon if tolerated Ventilator bundle Patient written for budesonide/formoterol 160/4.5 2 puffs twice daily. Albuterol/ipratropium aerosols every 6 hours with albuterol aerosols every 2 hours as needed dyspnea On prednisone [address] Blevins/pulmonology is following GI: Status post GJ conversion by IR 01/08 Hypoalbuminemia Lansoprazole 30 mg daily for GI prophylaxis Docusate sodium liquid 100 mg twice daily for bowel regimen On Megestrol 800 mg daily for anorexia Nutrition recommends vital 1.5 goal 60 cc an hour.. On Nepro at 50 cc an hour due to renal failure : Hay catheter for accurate I's and O's in a critically ill patient Endo: Sliding scale insulin to maintain euglycemia/low regimen every 6 hours TSH is 1.18 Renal: Acute kidney injury likely secondary to sepsis/ATN Right-sided nephrolithiasis Urine eosinophils negative. Renal ultrasound reveals medical renal disease and prior CT abdomen/pelvis revealed non-obstructing right renal stones. Followed by Dr. Carver/nephrology Avoid nephrotoxic medication Furosemide drip currently 2.5 mg an hour per nephrology. 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 Followed by hematology. Restart chemotherapy when clinically stable No indication for transfusion of blood products at this time ID: Day #7 cefepime 2 g IV every 12 hours. Meropenem discontinued 01/08 Continue metronidazole 500 mg 3 times daily Followed by infectious disease for prescribing medication FEN: Hypernatremia Hyper magnesium Hyperphosphatemia Free water 150 cc every 6 hours Replace electrolytes as clinically indicated MSK: Sacral decubitus ulcer Wound care management Access Left IJ CVL placed 01/01 - 01/10 Right Mguguc-b-Uxqy placed 12/20/17 Prophylaxis -GI -lansoprazole -DVT -SCD/heparin subcu Level 3 follow-up. Discussed with . Care plan discussed and all questions answered Pascual Bran MD Jan 13, 2018 07:57
[2018-01-13] MEDS: CHLORHEXIDINE 0.12% (ORAL KIT) 15 ML CUP MT SCH ×4 (08:00→20:00)
[2018-01-13] MEDS: BUDESONIDE-FORMOTEROL 160/4.5 MCG INHALER INH SCH ×2 (08:00→21:00)
[2018-01-13] MEDS: RESP: ALBUTEROL 2.5 MG/IPRATROPIUM 0.5 MG NEB (SCH) NEB ×4 (08:26→19:33)
--- NOTE | 2018-01-13 08:27 | RADRPT ---
EXAM DATE/TIME: 01/13/2018 07:56 [facility] COMPARISON: CHEST SINGLE AP, January 11, 2018, 4:00. INDICATIONS : Reintubation patient with respiratory failure and pulmonary opacities.. MEDICAL HISTORY : Hypercholesterolemia. Hypertension. Lymphoma. Chronic obstructive pulmonary disease. CVA. SURGICAL HISTORY : Port. Back surgery. ENCOUNTER: Subsequent ACUITY: 2 weeks PAIN SCORE: Non-responsive. LOCATION: Bilateral chest FINDINGS: 2 AP portable semierect view of the chest were obtained and demonstrate an endotracheal tube in place with the tip approximately 5 cm above the clem. The right-sided implantable catheter remains in pl alisha. Alveolar opacities remain in the perihilar regions both lung bases. The costophrenic angles are blunted. The left hemidiaphragm is obscured. The heart size appears mildly prominent. The bony thorax is intact degenerative change and scoliosis in the thoracic spine are CONCLUSION: 1. The endotracheal tube is in place with the tip approximately 5 cm above the clem. 2. Bilateral perihilar and bibasilar airspace disease remains. There are apparent bilateral effusions . Bijan Loredo MD on January 13, 2018 at 8:23 Board Certified Radiologist. This report was verified electronically.
[2018-01-13] MEDS: SODIUM CHLORIDE 0.9% FLUSH 10 ML FLUSH IV FLUSH SCH ×2 (09:00→21:20)
[2018-01-13] MEDS: MULTIVITAMIN TAB PO SCH (09:00)
--- NOTE | 2018-01-13 09:02 | PD.ONC.PN ---
Subjective Subjective Remarks Afebrile overnight. Patient intubated, sedated. Patient was extubated late last night and reintubated this AM after he went into respiratory distress. Objective Data Date Time Temp Pulse Resp B/P (MAP) Pulse Ox O2 Delivery O2 Flow Rate FiO2 01/13/18 08:26 100 Ventilator 70 01/13/18 07:40 99 100 01/13/18 06:57 97 Partial Rebreather 15.00 100 01/13/18 04:00 98.6 76 18 123/60 (81) 99 01/13/18 04:00 40 01/13/18 03:24 95 Venturi Mask 6.00 35 01/13/18 00:00 40 01/13/18 00:00 98.4 72 24 119/90 (100) 99 01/12/18 20:38 97 Nasal Cannula 3.00 01/12/18 20:00 40 01/12/18 20:00 98.0 70 18 158/86 (110) 99 01/12/18 20:00 40 01/12/18 18:00 96 01/12/18 16:34 95 Nasal Cannula 3 01/12/18 16:00 112 01/12/18 16:00 35 01/12/18 16:00 98.4 112 28 109/60 (76) 96 01/12/18 15:06 96 35 01/12/18 14:00 90 01/12/18 12:00 35 01/12/18 12:00 99 01/12/18 12:00 98.3 99 24 114/56 (75) 97 01/12/18 10:00 102 01/13/18 01/13/18 01/13/18 07:00 15:00 23:00 Intake Total 959 ml Output Total 1900 ml Balance -941 ml Result Diagram: 01/12/18 0536 01/12/18 0536 Laboratory Results Laboratory Tests Test 01/13/18 08:20 Blood Gas Puncture Site RT RADIAL Blood Gas Patient Temperature 98.6 Blood Gas HCO3 21 mmol/L Blood Gas Base Excess -3.5 mmol/L Blood Gas Oxygen Saturation 98 % Arterial Blood pH 7.38 Arterial Blood Partial Pressure CO2 36 mmHg Arterial Blood Partial Pressure O2 260 mmHg Arterial Blood Oxygen Content 12.8 Vol % Arterial Blood Carboxyhemoglobin 0.8 % Arterial Blood Methemoglobin 0.8 % Blood Gas Hemoglobin 8.8 G/DL Oxygen Delivery Device VENTILATOR Blood Gas Ventilator Setting PRVC14/500/1.2/+5 Blood Gas Inspired Oxygen 100 % Imaging Studies Last 24 hours Impressions Chest X-Ray 01/13/18 0000 Signed Impressions: Service Date/Time: Saturday, January 13, 2018 07:56 - CONCLUSION: 1. The endotracheal tube is in place with the tip approximately 5 cm above the clem. 2. Bilateral perihilar and bibasilar airspace disease remains. There are apparent bilateral effusions. Bijan Loredo MD Administered Medications Medications (Trade) Dose Ordered Sig/Cnadace Route PRN Reason Start Time Stop Time Status Last Admin Dose Admin Sodium Chloride (NS Flush) 2 ml BID IV FLUSH 12/22/17 21:00 01/12/18 20:37 Ondansetron HCl (Zofran Inj) 4 mg Q6H PRN IVP NAUSEA OR VOMITING 12/22/17 18:15 01/01/18 10:02 Zolpidem Tartrate (Ambien) 5 mg HS PRN PO INSOMNIA 12/22/17 20:15 12/26/17 20:30 Megestrol Acetate (Megace Liq) 800 mg DAILY PO 12/23/17 09:00 01/12/18 08:37 Budesonide/ Formoterol Fumarate (Symbicort 160-4.5 Mcg Inh) 1 puff Q12HR INH 12/22/17 21:00 01/07/18 09:00 Atorvastatin Calcium (Lipitor) 80 mg DAILY PO 12/23/17 09:00 Future Hold 01/08/18 08:32 Multivitamins (Theragran) 1 tab DAILY PO 12/23/17 09:00 01/12/18 08:41 Heparin Sodium (Porcine) (Heparin Central Flush) 250 units UNSCH PRN IV FLUSH SEE PROTOCOL 12/22/17 20:30 12/27/17 20:27 Guaifenesin/ Dextromethorphan (Robitussin Dm 200-20 Mg/10 ml Liq) 10 ml Q4H PRN PO cough interfering with rest 12/22/17 21:00 12/26/17 18:27 Calcium Carbonate (Tums Chew) 500 mg Q12HR PRN CHEW indigestion 12/31/17 16:15 01/01/18 05:27 Prednisone (Deltasone) 10 mg BID PO 01/01/18 21:00 01/12/18 20:34 Chlorhexidine Gluconate (Peridex 0.12% Liq) 15 ml BID@08,20 MT 01/01/18 20:00 01/12/18 20:00 Norepinephrine Bitartrate 250 ml @ 7.5 mls/hr TITRATE PRN IV Blood pressure management 01/01/18 17:00 01/10/18 15:50 Propofol 100 ml @ 2.757 mls/ hr TITRATE PRN IV SEDATION 01/02/18 11:15 01/10/18 09:22 Insulin Aspart (NovoLOG SUPPLEMENTAL SCALE) 1 Q6HR SQ 01/07/18 18:00 01/12/18 12:54 Docusate Sodium (Colace Liq) 100 mg Q12HR OG-TUBE 01/07/18 21:00 01/12/18 20:35 Metronidazole (Flagyl) 500 mg Q8H PO 01/08/18 22:00 01/13/18 06:08 Lansoprazole (Prevacid Odt) 30 mg BID G-TUBE 01/09/18 21:00 01/12/18 20:36 Albuterol/ Ipratropium (Duoneb Neb) 1 ampule Q6HR WHILE AWAKE NEB NEB 01/09/18 14:00 01/13/18 08:26 Artificial Tears (Tears Naturale Opth Soln) 1 drop Q8HR EACH EYE 01/09/18 14:00 01/13/18 06:00 Heparin Sodium (Porcine) (Heparin Inj) 5,000 units Q8HR SQ 01/09/18 14:00 01/13/18 06:09 Aspirin (Aspirin Chew) 81 mg DAILY CHEW 01/10/18 11:00 01/12/18 08:40 Dexmedetomidine HCl 1000 mcg/ Sodium Chloride 250 ml @ 4.76 mls/hr TITRATE PRN IV SEDATION 01/10/18 13:45 01/12/18 20:35 Water (Free Water) VOLUME: 150 ML Q6HR G-TUBE 01/10/18 18:00 01/13/18 06:00 Cefepime HCl 2000 mg/Sodium Chloride 100 ml @ 200 mls/hr Q24H IV 01/12/18 22:00 01/12/18 20:35 Albumin Human 50 ml @ 60 mls/hr Q12H IV 01/12/18 13:30 01/13/18 02:59 Furosemide 100 mg/ Sodium Chloride 100 ml @ 2.5 mls/hr CONTINUOUS IV 01/12/18 16:00 01/12/18 20:38 Objective Remarks GENERAL: Intubated sedated male, lying in hospital bed. SKIN: Warm and dry. HEAD: Normocephalic. EYES: No injection or drainage. NECK: Supple, trachea midline. CARDIOVASCULAR: +S1/S2 RESPIRATORY: anterior clark with scattered rhonchi. on mechanical ventilation. GASTROINTESTINAL: Abdomen non-distended. GJ tube clamped. EXTREMITIES: No cyanosis. +BLE and BUE edematous. 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 prognosis poor with worsening renal function, continue reliance on mechanical ventilation. 01/12: renal function continuing to worsen. considering hemodialysis per nephrology recommendations. next chemotherapy would be next week if patient improved 01/11: WBC remains recovered, renal function continuing to decline. patient remains intubated. plan from oncology standpoint is to give a second round of chemotherapy if he clinically improves. 01/10: patient remains critically ill, intubated and is currently minimally responsive off sedation. will hold chemotherapy until clinically improved. 01/09: Next cycle of CHOP chemo is due next week; we will likely hold this until he is more stable. Continue to monitor CBC. 01/08: monitor CBC, WBC is recovered. 01/07: Continue neupogen x 1 more day. Monitor CBC. Transfuse 1 unit packed red blood cells if hemoglobin trending down tomorrow. CXR shows worsening disease. Abx per ID, Vent mgmt by felt hat inspector and packer. 01/06: Patient no longer neutropenic. Continue Neupogen today. Monitor CBC. 01/05: Noted white blood cells minimally improved. Continue Neupogen for now. Await results from CT brain. Supportive care. 01/04: remains on vent. Off pf pressors. Pancytopenia with Neutropenia. Continue neupogen. Vent management per Manager Content. Extensive d/w and DIL ( GEOCHEMICAL MANAGER) . answered their questions. Continue maximal support. 01/03: Continue Neupogen. Transfuse 1 unit packed red blood cells today for hemoglobin of 7.5. Monitor CBC. 01/02: patient remains intubated, sedated. start Neupogen for neutropenia + infection 01/01: patient in respiratory failure. intubated and transferring to intensive care. 12/31: C. difficile negative. Bone marrow biopsy shows no lymphoma involvement. Cytology from thoracentesis pending. Transfuse 1 unit PRBC for symptomatic with hgb 7.7. Patient would benefit from inpatient rehab for strengthening 12/28: continue solu-medrol. await thoracentesis. consult OT. 12/27: start Solu-medrol 40mg IV q 6. consult pulmonology for worsening infiltrates, pleural effusions. monitor CBC, counts dropping. 12/26: CT chest shows Bilateral Pl effusion. Continue aggressive diuresis. Had CHOP C1D1 yesterday. Tolerated well. Next chemo in 3 weeks as outpt. Continue allopurinol and prednisone. 12/25: CTA shows no PE. +LAD, PE. dyspnea likely d/t lymphoma. will give Solu- medrol 1g IV and start CHOP today. Anaplastic large cell, non-Hodgkin's lymphoma, at least stage III. --unclear whether he has any B symptoms, but this could be most likely given that he has significant weight loss, which is one of the symptoms of lymphoma. --Leukocytosis, anemia and neutrophilia, most likely due to bone marrow involvement by the lymphoma until proven otherwise. (2) Renal insufficiency ICD Codes: N28.9 - Disorder of kidney and ureter, unspecified Plan: --Nephrology following. --unclear etiology Assessment 72y/o male with newly diagnosed anaplastic large cell NHL. h/o COPD, hypercholesterolemia, hypertension, history of previous stroke. HPI: started 8 weeks ago with a cough mixed with greenish phlegm and shortness of breath. CT cap showed diffuse lymphadenopathy on both sides of the diaphragm. PET scan showed increased uptake in the lymph nodes involving the neck, chest, mediastinal and hilar area, retroperitoneum and pelvic lymph nodes. biopsy of the left neck mass=anaplastic large cell NHL echocardiogram, LVEF=55-70%. MUGA scan, showed EF of 60%. Plan 1. await labs today 2. continue supportive care Attending Statement The exam, history, and the medical decision-making described in the above note were completed with the assistance of the mid-level provider. I reviewed and agree with the findings presented. I attest that I had a [id number] encounter with the patient on the same day, and personally performed and documented my assessment and findings in the medical record. PT was extubated yesterday and reintubated today. Renal function is worse. CBC stable. Continue supportive care. Susy La Jan 13, 2018 09:02 Jose Angel Davis MD Jan 13, 2018 12:27
[2018-01-13] MEDS: DOCUSATE SODIUM 100 MG/10 ML UDC OG-TUBE SCH ×2 (09:08→21:00)
[2018-01-13] MEDS: ASPIRIN 81 MG CHEW TAB CHEW SCH (09:08)
[2018-01-13] MEDS: MEGESTROL ACETATE SUSP 400 MG/10 ML CUP PO SCH (09:08)
[2018-01-13] MEDS: LANSOPRAZOLE SOLUTAB 30 MG TAB G-TUBE SCH ×2 (09:08→21:19)
[2018-01-13] MEDS: predniSONE 10 MG TAB PO SCH ×2 (09:08→21:19)
[2018-01-13 09:55] LABS: AUTOMATED NEUTROPHIL # 11.5 TH/MM3 (1.8-7.7); BASOPHIL % 0.4 % (0.0-2.0); HEMATOCRIT 24.5 % (39.0-51.0); HEMOGLOBIN 8.1 GM/DL (13.0-17.0); LYMPH % 3.1 % (9.0-44.0); LYMPHOCYTE # 0.4 TH/MM3 (1.0-4.8); MEAN CELL VOLUME 84.7 FL (80.0-100.0); MEAN CORPUSCULAR HEMOGLOBIN 27.9 PG (27.0-34.0); MEAN CORPUSCULAR HGB CONC 32.9 % (32.0-36.0); MEAN PLATELET VOLUME 9.7 FL (7.0-11.0); MONO % 3.9 % (0.0-8.0); MONOCYTE # 0.5 TH/MM3 (0-0.9); NEUT % 92.6 % (16.0-70.0); PLATELET COUNT 350 TH/MM3 (150-450); RED BLOOD COUNT 2.89 MIL/MM3 (4.50-5.90); RED CELL DISTRIBUTION WIDTH 18.1 % (11.6-17.2); WHITE BLOOD COUNT 12.4 TH/MM3 (4.0-11.0)
[2018-01-13 11:26] LABS: ALBUMIN 1.9 GM/DL (3.4-5.0); AST (GOT) 40 U/L (15-37); BICARBONATE 21.7 MEQ/L (21.0-32.0); BLOOD UREA NITROGEN 108 MG/DL (7-18); CHLORIDE 115 MEQ/L (98-107); CREATININE 3.87 MG/DL (0.60-1.30); GLOMERULAR FILTRATION RATE 15 ML/MIN (>89); GLUCOSE,RANDOM 108 MG/DL (74-106); MAGNESIUM 2.6 MG/DL (1.5-2.5); SODIUM (NA) 149 MEQ/L (136-145)
[2018-01-13 11:27] LABS: ALT (GPT) 27 U/L (12-78); PHOSPHORUS 5.1 MG/DL (2.5-4.9)
[2018-01-13 11:29] LABS: ALKALINE PHOSPHATASE 98 U/L (45-117); TOTAL BILIRUBIN ADULT 0.4 MG/DL (0.2-1.0); TOTAL PROTEIN 4.8 GM/DL (6.4-8.2)
--- NOTE | 2018-01-13 13:02 | HHI.IDPN ---
Note Infectious Disease Note ID [id number] for Notes reviewed Off the vent yesterday afternoon Increased O2 requirement, intubated this morning Sedated. Blood pressure stable. On Lasix drip, increased UP Creatinine slowly increasing No fever. No rash No diarrhea Sputum culture normal resp david. WBC improving. 72-year-old white male who was diagnosed with lymphoma. The patient was noted to have become ill 2 months ago. He was noted to have cough and he was given 3 rounds of oral antibiotics without improvement of the cough. Subsequent workup revealed mediastinal adenopathy and other areas of adenopathy, and a biopsy of the lesion of the neck came back showing lymphoma. During his stay at [facility], he had no fever. He was given antibiotics. An Infusaport was placed on 12/20 for anticipated chemotherapy. PAST MEDICAL HISTORY: Stage IIIB anaplastic large cell lymphoma, COPD, hypertension, hyperlipidemia, history of CVA without residual deficits, nonsustained V-tach at [facility], neuropathy of the lower extremities, back surgery, Infusaport placement on 12/20/2017. ALLERGIES: HYDROCODONE. Vital Signs Date Time Temp Pulse Resp B/P (MAP) Pulse Ox O2 Delivery O2 Flow Rate FiO2 01/13/18 12:05 98 40 01/13/18 12:00 98.7 77 15 113/69 (84) 100 01/13/18 12:00 50 01/13/18 12:00 77 01/13/18 10:00 102 01/13/18 08:26 100 Ventilator 70 01/13/18 08:00 50 01/13/18 08:00 107 01/13/18 08:00 99.2 107 25 119/70 (86) 99 01/13/18 07:40 99 100 01/13/18 06:57 97 Partial Rebreather 15.00 100 01/13/18 04:00 98.6 76 18 123/60 (81) 99 01/13/18 04:00 40 01/13/18 03:24 95 Venturi Mask 6.00 35 01/13/18 00:00 40 01/13/18 00:00 98.4 72 24 119/90 (100) 99 01/12/18 20:38 97 Nasal Cannula 3.00 01/12/18 20:00 40 01/12/18 20:00 98.0 70 18 158/86 (110) 99 01/12/18 20:00 40 01/12/18 18:00 96 01/12/18 16:34 95 Nasal Cannula 3 01/12/18 16:00 112 01/12/18 16:00 35 01/12/18 16:00 98.4 112 28 109/60 (76) 96 01/12/18 15:06 96 35 01/12/18 14:00 90 Laboratory Tests Test 01/12/18 05:36 01/13/18 09:25 White Blood Count 11.0 TH/MM3 12.4 TH/MM3 Red Blood Count 2.86 MIL/MM3 2.89 MIL/MM3 Hemoglobin 7.9 GM/DL 8.1 GM/DL Hematocrit 23.9 % 24.5 % Mean Corpuscular Volume 83.5 FL 84.7 FL Mean Corpuscular Hemoglobin 27.7 PG 27.9 PG Mean Corpuscular Hemoglobin Concent 33.2 % 32.9 % Red Cell Distribution Width 17.9 % 18.1 % Platelet Count 295 TH/MM3 350 TH/MM3 Mean Platelet Volume 9.7 FL 9.7 FL Neutrophils (%) (Auto) 93.2 % 92.6 % Lymphocytes (%) (Auto) 2.8 % 3.1 % Monocytes (%) (Auto) 3.7 % 3.9 % Eosinophils (%) (Auto) 0.0 % 0.0 % Basophils (%) (Auto) 0.3 % 0.4 % Neutrophils # (Auto) 10.3 TH/MM3 11.5 TH/MM3 Lymphocytes # (Auto) 0.3 TH/MM3 0.4 TH/MM3 Monocytes # (Auto) 0.4 TH/MM3 0.5 TH/MM3 Eosinophils # (Auto) 0.0 TH/MM3 0.0 TH/MM3 Basophils # (Auto) 0.0 TH/MM3 0.0 TH/MM3 CBC Comment AUTO DIFF AUTO DIFF Differential Total Cells Counted 100 Neutrophils % (Manual) 94 % Band Neutrophils % 5 % Monocytes % 1 % Neutrophils # (Manual) 10.9 TH/MM3 Differential Comment FINAL DIFF MANUAL AUTO DIFF CONFIRMED Dohle Bodies PRESENT Platelet Estimate NORMAL NORMAL Platelet Morphology Comment NORMAL NORMAL Red Cell Morphology Comment NORMAL Laboratory Tests Test 01/11/18 16:23 01/12/18 05:36 01/13/18 09:25 Blood Urea Nitrogen 85 MG/DL 95 MG/DL 108 MG/DL Creatinine 3.35 MG/DL 3.58 MG/DL 3.87 MG/DL Random Glucose 124 MG/DL 152 MG/DL 108 MG/DL Albumin 1.5 GM/DL 1.9 GM/DL Calcium Level 7.5 MG/DL 7.6 MG/DL 8.0 MG/DL Phosphorus Level 3.9 MG/DL 5.1 MG/DL Sodium Level 148 MEQ/L 147 MEQ/L 149 MEQ/L Potassium Level 4.4 MEQ/L 4.2 MEQ/L 4.2 MEQ/L Chloride Level 116 MEQ/L 115 MEQ/L 115 MEQ/L Carbon Dioxide Level 23.2 MEQ/L 21.0 MEQ/L 21.7 MEQ/L Anion Gap 9 MEQ/L 11 MEQ/L 12 MEQ/L Estimat Glomerular Filtration Rate 18 ML/MIN 17 ML/MIN 15 ML/MIN Total Protein 4.8 GM/DL Magnesium Level 2.6 MG/DL Alkaline Phosphatase 98 U/L Aspartate Amino Transf (AST/SGOT) 40 U/L Alanine Aminotransferase (ALT/SGPT) 27 U/L Total Bilirubin 0.4 MG/DL Microbiology Date/Time Source Procedure Growth Status 01/01/18 17:57 Blood Peripheral Aerobic Blood Culture - Final NO GROWTH IN 5 DAYS Complete 01/01/18 17:57 Blood Peripheral Anaerobic Blood Culture - Final NO GROWTH IN 5 DAYS Complete 12/28/17 12:15 Fluid Pleural Fluid Fungal Smear - Final NO FUNGAL ELEMENTS SEEN. Resulted 12/28/17 12:15 Fluid Pleural Fluid Fungal Culture - Preliminary NO GROWTH IN 1 WEEK Resulted 01/01/18 17:15 Sputum Endotracheal Gram Stain - Final Complete 01/01/18 17:15 Sputum Endotracheal Sputum Culture - Final HEAVY GROWTH NORMAL RESPIRATORY DAVID Complete 01/01/18 17:15 Urine Catheterized Urine Urine Culture - Final NO GROWTH IN 48 HOURS. Complete IMAGING Chest X-Ray 01/13/18 0000 Signed Impressions: Service Date/Time: Saturday, January 13, 2018 07:56 - CONCLUSION: 1. The endotracheal tube is in place with the tip approximately 5 cm above the clem. 2. Bilateral perihilar and bibasilar airspace disease remains. There are apparent bilateral effusions. Bijan Loredo MD Chest X-Ray 01/11/18 0600 Signed Impressions: Service Date/Time: Thursday, January 11, 2018 04:00 - CONCLUSION: Right greater than left parenchymal consolidation and small moderate right, small left pleural effusions not significantly changed. Andres Parekh MD Chest X-Ray 01/09/18 0600 Signed Impressions: Service Date/Time: Tuesday, January 09, 2018 05:20 - CONCLUSION: Stable bilateral airspace disease and probable small pleural effusions. Kaveh Perales MD Gastrostomy Tube Change 01/08/18 0000 Signed Impressions: Service Date/Time: Monday, January 08, 2018 14:35 - CONCLUSION: Conversion of the patient's existing gastrostomy tube to a gastrojejunostomy tube. Siva Bean Jr., MD Renal Ultrasound 01/05/18 0000 Signed Impressions: Service Date/Time: Friday, January 05, 2018 08:00 - CONCLUSION: Echogenic kidneys suggesting medical renal disease. Some ascites. Bilateral pleural effusions. Lee Mijares MD Head CT 01/05/18 0000 Signed Impressions: Service Date/Time: Friday, January 05, 2018 11:41 - CONCLUSION: 1. No acute abnormality is seen. 2. Old lacunar infarct at the left basal ganglia. 3. Fluid in the mastoid air cells on the right. Andres Valero MD Small Bowel X-Ray 01/03/18 0000 Signed Impressions: Service Date/Time: December 14:27 - CONCLUSION: 1. No leakage identified on injection through gastrostomy tube. No small bowel obstruction or significant dilatation. Elbert Carrasquillo MD Abdomen/Pelvis CT 01/02/18 0000 Signed Impressions: Service Date/Time: Tuesday, January 02, 2018 21:38 - CONCLUSION: 1. Free intraperitoneal air of unknown etiology. On the supine view most of the free air is around the gastrostomy tube and tip of the nasogastric tube as discussed above. 2. Mild to moderate ascites. Moderate anasarca. 3. Moderate bilateral effusions with basilar atelectasis. 4. Nonobstructing right renal calculus. Hay catheter in bladder. Elbert Carrasquillo MD Chest CT 12/30/17 0000 Signed Impressions: Service Date/Time: Saturday, December 30, 2017 21:13 - CONCLUSION: 1. Free intraperitoneal air in the upper abdomen of uncertain etiology. There is a gastrostomy present. 2. Moderate bilateral pleural effusions with compressive atelectasis. Patchy air space consolidation in the right upper lobe. 3. Moderate anasarca and ascites. 4. Findings called to the floor at the time of dictation. Elbert Carrasquillo MD Chest Ultrasound 12/27/17 0000 Signed Impressions: Service Date/Time: December 21:39 - CONCLUSION: Large left pleural effusion and would be amenable to thoracentesis. Frandy was made on the overlying skin. Andres Parekh MD Bone Biopsy CT 12/25/17 1142 Signed Impressions: Service Date/Time: Monday, December 25, 2017 12:32 - CONCLUSION: 1. Uncomplicated CT guided bone marrow aspirate. 2. Uncomplicated CT guided bone marrow biopsy. Lee Mijares MD CT Angiography 12/25/17 0000 Signed Impressions: Service Date/Time: Monday, December 25, 2017 09:26 - CONCLUSION: 1. No CT evidence for pulmonary artery embolism. 2. Moderate to large bilateral pleural effusions with associated compressive atelectasis at the lung bases. 3. 8mm nodule in the right middle lobe. Followup CT examination may be performed at 6 months to document stability if this has not been evaluated previously. 4. Very mildly prominent mediastinal and hilar nodes and partially imaged upper abdominal lymphadenopathy in this patient with history of lymphoma. Miguel Ashton MD PHYSICAL EXAMINATION: GENERAL: On the ventilator. Sedated. NAD HEENT: No icterus. No conjunctival erythema. Dry oral mucosa, orally intubated NECK: Supple. No adenopathy. No swelling. LUNGS: Coarse breath sounds bilaterally. Decreased at bases HEART: Regular S1 and S2. No murmurs, rubs or gallops. ABDOMEN: Markedly diminished bowel sounds, soft. EXTREMITIES: No clubbing or cyanosis, 1+ edema of the extremities. SKIN: No rash. NEUROLOGIC: Sedated PSYCHIATRIC: Unable to assess. IV line sites with no e.o infection. IMPRESSION: 1. Pneumonia. Bibasilar lung infiltrates. history of Aspiration with decline in respiratory status. 2. Acute respiratory failure. Intubated on the ventilator. 3. Bilateral pleural effusions. Post thoracentesis. 4. Lymphoma. Treated with chemotherapy. 5. Neutropenia postchemotherapy. resolved. Now with mild leukocytosis 6. Decreased nutrition in patient with anorexia and now post percutaneous endoscopic gastrostomy placement. Tube feeds placed on hold because of concern for aspiration 7. Acute renal failure. RECOMMENDATIONS: Continue Cefepime IV Continue Flagyl po or peg/J tube. Component of fluid overload. Follow cultures Monitor progress D/W Melanie Clements MD Jan 13, 2018 13:02
--- NOTE | 2018-01-13 15:48 | HHI.NPPN ---
Subjective History of Present Illness 72-year-old male with history of large cell lymphoma, acute renal failure, respiratory failure on ventilator Additional Remarks Patient remain intubated and sedated, clinically same. Objective Data Data 01/13/18 01/14/18 19:00 07:00 Intake Total 150 ml Balance 150 ml IV Total 150 ml Vital Signs Date Time Temp Pulse Resp B/P (MAP) Pulse Ox O2 Delivery O2 Flow Rate FiO2 01/13/18 14:00 89 01/13/18 12:05 98 40 01/13/18 12:00 98.7 77 15 113/69 (84) 100 01/13/18 12:00 50 01/13/18 12:00 77 01/13/18 10:00 102 01/13/18 08:26 100 Ventilator 70 01/13/18 08:00 50 01/13/18 08:00 107 01/13/18 08:00 99.2 107 25 119/70 (86) 99 01/13/18 07:40 99 100 01/13/18 06:57 97 Partial Rebreather 15.00 100 01/13/18 04:00 98.6 76 18 123/60 (81) 99 01/13/18 04:00 40 01/13/18 03:24 95 Venturi Mask 6.00 35 01/13/18 00:00 40 01/13/18 00:00 98.4 72 24 119/90 (100) 99 01/12/18 20:38 97 Nasal Cannula 3.00 01/12/18 20:00 40 01/12/18 20:00 98.0 70 18 158/86 (110) 99 01/12/18 20:00 40 01/12/18 18:00 96 01/12/18 16:34 95 Nasal Cannula 3 01/12/18 16:00 112 01/12/18 16:00 35 01/12/18 16:00 98.4 112 28 109/60 (76) 96 -: 01/13/18 0925 01/13/18 0925 Physical Exam General Appearance Remarks Intubated and sedated. Neck Neck Exam: Neck Supple Pulmonary Resp Exam: Rhonchi Cardiology CV Exam: Regular, Normal Sinus Rhythm Gastrointestinal/Abdomen GI Exam: Soft, Non-Tender, Bowel Sounds Present Extremeties Extremities Exam: Moderate Edema, Pitting Edema, Dependent Edema Neurologic Neuro Exam: Sedated Assessment/Plan Problem List: (1) Acute renal failure ICD Codes: N17.9 - Acute kidney failure, unspecified Status: Acute Plan: he has sepsis contributing to ARF FeNa low <1 Chest x-ray showed fluid overload has peripheral edema Creatinine continue to increase , now 3.8. Lasix infusion stopped. Urine out put is adequate and edema decreasing. D/W the . 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
--- NOTE | 2018-01-13 16:50 | HHI.PR ---
Subjective Remarks EXTUBATED YESTERDAY BACK ON VENT SUPPORT SEDATED Objective Vital Signs Date Time Temp Pulse Resp B/P (MAP) Pulse Ox O2 Delivery O2 Flow Rate FiO2 01/13/18 16:37 99 30 01/13/18 16:00 98.2 62 16 117/62 (80) 98 01/13/18 16:00 62 01/13/18 16:00 50 01/13/18 14:00 89 01/13/18 12:05 98 40 01/13/18 12:00 98.7 77 15 113/69 (84) 100 01/13/18 12:00 50 01/13/18 12:00 77 01/13/18 10:00 102 01/13/18 08:26 100 Ventilator 70 01/13/18 08:00 50 01/13/18 08:00 107 01/13/18 08:00 99.2 107 25 119/70 (86) 99 01/13/18 07:40 99 100 01/13/18 06:57 97 Partial Rebreather 15.00 100 01/13/18 04:00 98.6 76 18 123/60 (81) 99 01/13/18 04:00 40 01/13/18 03:24 95 Venturi Mask 6.00 35 01/13/18 00:00 40 01/13/18 00:00 98.4 72 24 119/90 (100) 99 01/12/18 20:38 97 Nasal Cannula 3.00 01/12/18 20:00 40 01/12/18 20:00 98.0 70 18 158/86 (110) 99 01/12/18 20:00 40 01/12/18 18:00 96 I/O 01/12/18 01/12/18 01/12/18 01/13/18 01/13/18 01/13/18 06:59 14:59 22:59 06:59 14:59 22:59 Intake Total 1578 ml 1495 ml 959 ml 150 ml Output Total 1251 ml 0 ml 1700 ml 1900 ml Balance 327 ml 0 ml -205 ml -941 ml 150 ml IV Total 450 ml 477 ml 50 ml 150 ml Tube Feeding 808 ml 568 ml 549 ml Other 320 ml 450 ml 360 ml Output Urine Total 1250 ml 1500 ml 1900 ml Stool Total 1 ml 200 ml Tube Feeding Residual Discard 0 ml 0 ml Result Diagram: 4/1/18 0925 01/13/18 0925 Procedures PEG tube placement. Bone Marrow Biopsy 12/25/17 Objective Remarks GENERAL: SKIN: Warm and dry. HEAD: Atraumatic. Normocephalic. EYES: Pupils equal and round. No scleral icterus. No injection or drainage. ENT: No nasal bleeding or discharge. Mucous membranes pink and moist. NECK: Trachea midline. No JVD. CARDIOVASCULAR: Regular rate and rhythm. RESPIRATORY: No accessory muscle use. Clear to auscultation. Breath sounds equal bilaterally. GASTROINTESTINAL: Abdomen soft, non-tender, nondistended. Hepatic and splenic margins not palpable. MUSCULOSKELETAL: Extremities without clubbing, cyanosis, or edema. No obvious deformities. NEUROLOGICAL: Awake and alert. No obvious cranial nerve deficits. Motor grossly within normal limits. Five out of 5 muscle strength in the arms and legs. Normal speech. PSYCHIATRIC: Appropriate mood and affect; insight and judgment normal. Assessment and Plan Assessment and Plan impression respiratory failure pna lymphoma plan VENT SUPPORT antibx pulm toilet increase activity Stephanie Brown MD Jan 13, 2018 16:50
[2018-01-13] MEDS: CEFEPIME INJ 2,000 MG in SODIUM CHLORIDE 0.9% INJ 100 ML IV SCH (21:19)
[2018-01-14] VITALS (21 sets, daily range): BP systolic 81–130; BP diastolic 53–67; PULSE 72–112; RESP 14–32; TEMP 97.9–99.4; O2SAT 93–100
[2018-01-14] MEDS: DEXMEDETOMIDINE INJ 1,000 MCG in SODIUM CHLOR 0.9% 250 ML INJ 240 ML IV PRN ×2 (01:00→17:30)
[2018-01-14] MEDS: INSULIN ASPART SUPPLEMENTAL SCALE SQ SCH ×3 (06:00→18:00)
[2018-01-14] MEDS: ARTIFICIAL TEARS OPTH SOLN 15 ML BTL EACH EYE SCH ×3 (06:00→21:32)
[2018-01-14] MEDS: FREE WATER G-TUBE SCH ×3 (06:00→18:00)
[2018-01-14 06:01] LABS: AUTOMATED NEUTROPHIL # 8.7 TH/MM3 (1.8-7.7); BASOPHIL % 0.5 % (0.0-2.0); EOSINOPHIL % 0.1 % (0.0-4.0); HEMATOCRIT 22.1 % (39.0-51.0); HEMOGLOBIN 7.5 GM/DL (13.0-17.0); LYMPH % 3.4 % (9.0-44.0); LYMPHOCYTE # 0.3 TH/MM3 (1.0-4.8); MEAN CELL VOLUME 85.2 FL (80.0-100.0); MEAN CORPUSCULAR HGB CONC 34.1 % (32.0-36.0); MEAN PLATELET VOLUME 9.7 FL (7.0-11.0); MONO % 3.2 % (0.0-8.0); MONOCYTE # 0.3 TH/MM3 (0-0.9); NEUT % 92.8 % (16.0-70.0); PLATELET COUNT 336 TH/MM3 (150-450); RED BLOOD COUNT 2.59 MIL/MM3 (4.50-5.90); RED CELL DISTRIBUTION WIDTH 17.7 % (11.6-17.2); WHITE BLOOD COUNT 9.4 TH/MM3 (4.0-11.0)
[2018-01-14] MEDS: metroNIDAZOLE 500 MG TAB PO SCH ×3 (06:05→20:30)
[2018-01-14] MEDS: HEPARIN SODIUM - SQ 10,000 UNITS/ML VIAL SQ SCH ×3 (06:06→20:30)
[2018-01-14 06:24] LABS: BICARBONATE 20.3 MEQ/L (21.0-32.0); CALCIUM 7.7 MG/DL (8.5-10.1); CREATININE 4.06 MG/DL (0.60-1.30); MAGNESIUM 2.6 MG/DL (1.5-2.5)
--- NOTE | 2018-01-14 06:55 | RADRPT ---
EXAM DATE/TIME: 01/14/2018 04:41 [facility] COMPARISON: CHEST SINGLE AP, January 13, 2018, 7:56. INDICATIONS : Short of breath, respiratory failure MEDICAL HISTORY : Chronic obstructive pulmonary disease. Hypertension lymphoma, CVA SURGICAL HISTORY : infusaport, back surgery ENCOUNTER: Subsequent ACUITY: 2 weeks PAIN SCORE: Non-responsive. LOCATION: Bilateral chest FINDINGS: Endotracheal tube is stable in position. Right chest port is unchanged. Hazy bilateral pleural-parenc hymal opacities persist, not significantly changed. Cardiac contours are stable. CONCLUSION: No significant change Andres Drew MD on January 14, 2018 at 6:53 Board Certified Radiologist. This report was verified electronically.
[2018-01-14] MEDS: CHLORHEXIDINE 0.12% (ORAL KIT) 15 ML CUP MT SCH ×4 (08:00→21:31)
[2018-01-14 08:51] LABS: DOHLE BODIES PRESENT (NONE SEEN)
[2018-01-14] MEDS: SODIUM CHLORIDE 0.9% FLUSH 10 ML FLUSH IV FLUSH SCH ×2 (09:00→21:32)
[2018-01-14] MEDS: MULTIVITAMIN TAB PO SCH (09:00)
[2018-01-14] MEDS: BUDESONIDE-FORMOTEROL 160/4.5 MCG INHALER INH SCH ×2 (09:00→21:00)
[2018-01-14] MEDS: DOCUSATE SODIUM 100 MG/10 ML UDC OG-TUBE SCH ×2 (09:00→21:00)
[2018-01-14] MEDS: RESP: ALBUTEROL 2.5 MG/IPRATROPIUM 0.5 MG NEB (SCH) NEB ×3 (09:15→21:36)
[2018-01-14] MEDS: ASPIRIN 81 MG CHEW TAB CHEW SCH (09:39)
[2018-01-14] MEDS: predniSONE 10 MG TAB PO SCH ×2 (09:39→20:30)
[2018-01-14] MEDS: LANSOPRAZOLE SOLUTAB 30 MG TAB G-TUBE SCH ×2 (09:39→20:30)
[2018-01-14] MEDS: MEGESTROL ACETATE SUSP 400 MG/10 ML CUP PO SCH (09:40)
--- NOTE | 2018-01-14 14:20 | HHI.NPPN ---
Subjective History of Present Illness 72-year-old male with history of large cell lymphoma, acute renal failure, respiratory failure on ventilator Additional Remarks Patient remain intubated and sedated, clinically same. Objective Data Data Vital Signs Date Time Temp Pulse Resp B/P (MAP) Pulse Ox O2 Delivery O2 Flow Rate FiO2 01/14/18 13:09 98 35 01/14/18 12:00 95 01/14/18 12:00 99.3 101 28 95/54 (68) 93 01/14/18 12:00 30 01/14/18 10:00 92 01/14/18 09:15 97 30 01/14/18 08:00 30 01/14/18 08:00 97 01/14/18 08:00 99.4 72 14 107/60 (76) 97 01/14/18 06:00 95 01/14/18 04:12 97 30 01/14/18 04:00 50 01/14/18 04:00 92 20 107/58 (74) 97 01/14/18 04:00 92 01/14/18 02:00 79 01/14/18 00:03 94 30 01/14/18 00:00 93 01/14/18 00:00 98.3 88 17 126/62 (83) 100 01/14/18 00:00 50 01/13/18 22:00 96 01/13/18 20:00 89 01/13/18 20:00 50 01/13/18 20:00 97.5 82 24 128/64 (85) 96 01/13/18 19:27 97 30 01/13/18 18:00 78 01/13/18 16:37 99 30 01/13/18 16:00 98.2 62 16 117/62 (80) 98 01/13/18 16:00 62 01/13/18 16:00 50 -: 01/14/18 0543 01/14/18 0543 Physical Exam Neck Neck Exam: Neck Supple Pulmonary Resp Exam: Rhonchi, Decreased Bases Cardiology CV Exam: Regular, Normal Sinus Rhythm Gastrointestinal/Abdomen GI Exam: Soft, Non-Tender, Bowel Sounds Present Extremeties Extremities Exam: Moderate Edema, Pitting Edema, Dependent Edema Neurologic Neuro Exam: Sedated Assessment/Plan Problem List: (1) Acute renal failure ICD Codes: N17.9 - Acute kidney failure, unspecified Status: Acute Plan: he has sepsis contributing to ARF creatinine is higher again dialysis was discussed as over weekend he was extubated and reintubated Chest x-ray showed signs of volume overload Diuretics was given but creatinine continued to rise I discuss with them again dialysis They did not give me permission Discussed with Dr. Bran, will also give me the opinion that fluid needs to be taken off in order to Wean him off the ventilator They want to discuss with Dr. 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
[2018-01-14] MEDS ORDERED: SODIUM CHLOR 0.9% 250 ML INJ 250 ML IV ONE (15:30)
--- NOTE | 2018-01-14 15:33 | PD.ONC.PN ---
Subjective Subjective Remarks Patient having low-grade fevers Had to be reintubated over the weekend Family is concerned he seems agitated. Objective Data Date Time Temp Pulse Resp B/P (MAP) Pulse Ox O2 Delivery O2 Flow Rate FiO2 01/14/18 14:00 104 01/14/18 13:09 98 35 01/14/18 12:00 95 01/14/18 12:00 99.3 101 28 95/54 (68) 93 01/14/18 12:00 30 01/14/18 10:00 92 01/14/18 09:15 97 30 01/14/18 08:00 30 01/14/18 08:00 97 01/14/18 08:00 99.4 72 14 107/60 (76) 97 01/14/18 06:00 95 01/14/18 04:12 97 30 01/14/18 04:00 50 01/14/18 04:00 92 20 107/58 (74) 97 01/14/18 04:00 92 01/14/18 02:00 79 01/14/18 00:03 94 30 01/14/18 00:00 93 01/14/18 00:00 98.3 88 17 126/62 (83) 100 01/14/18 00:00 50 01/13/18 22:00 96 01/13/18 20:00 89 01/13/18 20:00 50 01/13/18 20:00 97.5 82 24 128/64 (85) 96 01/13/18 19:27 97 30 01/13/18 18:00 78 01/13/18 16:37 99 30 01/13/18 16:00 98.2 62 16 117/62 (80) 98 01/13/18 16:00 62 01/13/18 16:00 50 01/14/18 01/14/18 01/14/18 06:59 14:59 22:59 Output Total 650 ml Balance -650 ml Result Diagram: 01/14/18 0543 01/14/18 0543 Laboratory Results Laboratory Tests Test 01/14/18 05:43 White Blood Count 9.4 TH/MM3 Red Blood Count 2.59 MIL/MM3 Hemoglobin 7.5 GM/DL Hematocrit 22.1 % Mean Corpuscular Volume 85.2 FL Mean Corpuscular Hemoglobin 29.0 PG Mean Corpuscular Hemoglobin Concent 34.1 % Red Cell Distribution Width 17.7 % Platelet Count 336 TH/MM3 Mean Platelet Volume 9.7 FL Neutrophils (%) (Auto) 92.8 % Lymphocytes (%) (Auto) 3.4 % Monocytes (%) (Auto) 3.2 % Eosinophils (%) (Auto) 0.1 % Basophils (%) (Auto) 0.5 % Neutrophils # (Auto) 8.7 TH/MM3 Lymphocytes # (Auto) 0.3 TH/MM3 Monocytes # (Auto) 0.3 TH/MM3 Eosinophils # (Auto) 0.0 TH/MM3 Basophils # (Auto) 0.0 TH/MM3 CBC Comment AUTO DIFF Differential Comment AUTO DIFF CONFIRMED Dohle Bodies PRESENT Platelet Estimate NORMAL Platelet Morphology Comment NORMAL Blood Urea Nitrogen 110 MG/DL Creatinine 4.06 MG/DL Random Glucose 137 MG/DL Calcium Level 7.7 MG/DL Phosphorus Level 5.0 MG/DL Magnesium Level 2.6 MG/DL Sodium Level 148 MEQ/L Potassium Level 4.4 MEQ/L Chloride Level 117 MEQ/L Carbon Dioxide Level 20.3 MEQ/L Anion Gap 11 MEQ/L Estimat Glomerular Filtration Rate 15 ML/MIN Imaging Studies Last 24 hours Impressions Chest X-Ray 01/14/18 0600 Signed Impressions: Service Date/Time: Sunday, January 14, 2018 04:41 - CONCLUSION: No significant change Andres Drew MD Administered Medications Medications (Trade) Dose Ordered Sig/Candace Route PRN Reason Start Time Stop Time Status Last Admin Dose Admin Sodium Chloride (NS Flush) 2 ml BID IV FLUSH 12/22/17 21:00 01/14/18 09:00 Ondansetron HCl (Zofran Inj) 4 mg Q6H PRN IVP NAUSEA OR VOMITING 12/22/17 18:15 01/01/18 10:02 Zolpidem Tartrate (Ambien) 5 mg HS PRN PO INSOMNIA 12/22/17 20:15 12/26/17 20:30 Megestrol Acetate (Megace Liq) 800 mg DAILY PO 12/23/17 09:00 01/14/18 09:40 Budesonide/ Formoterol Fumarate (Symbicort 160-4.5 Mcg Inh) 1 puff Q12HR INH 12/22/17 21:00 01/07/18 09:00 Atorvastatin Calcium (Lipitor) 80 mg DAILY PO 12/23/17 09:00 Future Hold 01/08/18 08:32 Multivitamins (Theragran) 1 tab DAILY PO 12/23/17 09:00 01/14/18 09:00 Heparin Sodium (Porcine) (Heparin Central Flush) 250 units UNSCH PRN IV FLUSH SEE PROTOCOL 12/22/17 20:30 12/27/17 20:27 Guaifenesin/ Dextromethorphan (Robitussin Dm 200-20 Mg/10 ml Liq) 10 ml Q4H PRN PO cough interfering with rest 12/22/17 21:00 12/26/17 18:27 Calcium Carbonate (Tums Chew) 500 mg Q12HR PRN CHEW indigestion 12/31/17 16:15 01/01/18 05:27 Prednisone (Deltasone) 10 mg BID PO 01/01/18 21:00 01/14/18 09:39 Chlorhexidine Gluconate (Peridex 0.12% Liq) 15 ml BID@08,20 MT 01/01/18 20:00 01/14/18 08:00 Norepinephrine Bitartrate 250 ml @ 7.5 mls/hr TITRATE PRN IV Blood pressure management 01/01/18 17:00 01/10/18 15:50 Propofol 100 ml @ 2.757 mls/ hr TITRATE PRN IV SEDATION 01/02/18 11:15 01/10/18 09:22 Insulin Aspart (NovoLOG SUPPLEMENTAL SCALE) 1 Q6HR SQ 01/07/18 18:00 01/12/18 12:54 Docusate Sodium (Colace Liq) 100 mg Q12HR OG-TUBE 01/07/18 21:00 01/13/18 09:08 Metronidazole (Flagyl) 500 mg Q8H PO 01/08/18 22:00 01/14/18 06:05 Lansoprazole (Prevacid Odt) 30 mg BID G-TUBE 01/09/18 21:00 01/14/18 09:39 Artificial Tears (Tears Naturale Opth Soln) 1 drop Q8HR EACH EYE 01/09/18 14:00 01/14/18 13:41 Heparin Sodium (Porcine) (Heparin Inj) 5,000 units Q8HR SQ 01/09/18 14:00 01/14/18 06:06 Aspirin (Aspirin Chew) 81 mg DAILY CHEW 01/10/18 11:00 01/14/18 09:39 Dexmedetomidine HCl 1000 mcg/ Sodium Chloride 250 ml @ 4.76 mls/hr TITRATE PRN IV SEDATION 01/10/18 13:45 01/14/18 01:00 Water (Free Water) VOLUME: 150 ML Q6HR G-TUBE 01/10/18 18:00 01/14/18 12:00 Cefepime HCl 2000 mg/Sodium Chloride 100 ml @ 200 mls/hr Q24H IV 01/12/18 22:00 01/13/18 21:19 Chlorhexidine Gluconate (Peridex 0.12% Liq) 15 ml BID@08,20 MT 01/13/18 08:00 01/14/18 08:00 Albuterol/ Ipratropium (Duoneb Neb) 1 ampule Q6HR WHILE AWAKE NEB NEB 01/13/18 14:00 01/14/18 13:08 Objective Remarks GENERAL: Elderly male resting in bed intubated and sedated SKIN: Warm and dry. HEAD: Normocephalic. EYES: No injection or drainage. NECK: Supple, trachea midline. CARDIOVASCULAR: Regular rate and rhythm without murmurs. RESPIRATORY: Clear anteriorly. GASTROINTESTINAL: Abdomen soft, non-tender, nondistended. EXTREMITIES: No cyanosis. 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 Transfuse 1 unit PRBC's for increased O2 demands, hemoglobin of 7.5. Monitor CBC in am. 01/13/18: await labs today. prognosis poor with worsening renal function, continue reliance on mechanical ventilation. 01/12: renal function continuing to worsen. considering hemodialysis per nephrology recommendations. next chemotherapy would be next week if patient improved 01/11: WBC remains recovered, renal function continuing to decline. patient remains intubated. plan from oncology standpoint is to give a second round of chemotherapy if he clinically improves. 01/10: patient remains critically ill, intubated and is currently minimally responsive off sedation. will hold chemotherapy until clinically improved. 01/09: Next cycle of CHOP chemo is due next week; we will likely hold this until he is more stable. Continue to monitor CBC. 01/08: monitor CBC, WBC is recovered. 01/07: Continue neupogen x 1 more day. Monitor CBC. Transfuse 1 unit packed red blood cells if hemoglobin trending down tomorrow. CXR shows worsening disease. Abx per ID, Vent mgmt by hvac technician residential. 01/06: Patient no longer neutropenic. Continue Neupogen today. Monitor CBC. 01/05: Noted white blood cells minimally improved. Continue Neupogen for now. Await results from CT brain. Supportive care. 01/04: remains on vent. Off pf pressors. Pancytopenia with Neutropenia. Continue neupogen. Vent management per Nurses Educator. Extensive d/w and DIL ( COMPUTER SYSTEMS TECHNOLOGY INSTRUCTOR) . answered their questions. Continue maximal support. 01/03: Continue Neupogen. Transfuse 1 unit packed red blood cells today for hemoglobin of 7.5. Monitor CBC. 01/02: patient remains intubated, sedated. start Neupogen for neutropenia + infection 01/01: patient in respiratory failure. intubated and transferring to intensive care. 12/31: C. difficile negative. Bone marrow biopsy shows no lymphoma involvement. Cytology from thoracentesis pending. Transfuse 1 unit PRBC for symptomatic with hgb 7.7. Patient would benefit from inpatient rehab for strengthening 12/28: continue solu-medrol. await thoracentesis. consult OT. 12/27: start Solu-medrol 40mg IV q 6. consult pulmonology for worsening infiltrates, pleural effusions. monitor CBC, counts dropping. 12/26: CT chest shows Bilateral Pl effusion. Continue aggressive diuresis. Had CHOP C1D1 yesterday. Tolerated well. Next chemo in 3 weeks as outpt. Continue allopurinol and prednisone. 12/25: CTA shows no PE. +LAD, PE. dyspnea likely d/t lymphoma. will give Solu- medrol 1g IV and start CHOP today. Anaplastic large cell, non-Hodgkin's lymphoma, at least stage III. --unclear whether he has any B symptoms, but this could be most likely given that he has significant weight loss, which is one of the symptoms of lymphoma. --Leukocytosis, anemia and neutrophilia, most likely due to bone marrow involvement by the lymphoma until proven otherwise. (2) Renal insufficiency ICD Codes: N28.9 - Disorder of kidney and ureter, unspecified Plan: --Nephrology following. --unclear etiology Assessment 72y/o male with newly diagnosed anaplastic large cell NHL. h/o COPD, hypercholesterolemia, hypertension, history of previous stroke. HPI: started 8 weeks ago with a cough mixed with greenish phlegm and shortness of breath. CT cap showed diffuse lymphadenopathy on both sides of the diaphragm. PET scan showed increased uptake in the lymph nodes involving the neck, chest, mediastinal and hilar area, retroperitoneum and pelvic lymph nodes. biopsy of the left neck mass=anaplastic large cell NHL echocardiogram, LVEF=55-70%. MUGA scan, showed EF of 60%. Attending Statement The exam, history, and the medical decision-making described in the above note were completed with the assistance of the mid-level provider. I reviewed and agree with the findings presented. I attest that I had a [id number] encounter with the patient on the same day, and personally performed and documented my assessment and findings in the medical record. Reintubated yesterday, Back on sedation. PRBC today. Creatinine is worsening. D/W . She will think about it. Vent management per Nurses Educator and Dr Jeremy osullivan. Continue GJ feeding. D/W Pt Tawanna Holley Jan 14, 2018 15:33 Josy Suarez MD Jan 14, 2018 22:10
--- NOTE | 2018-01-14 16:46 | OTSOAPIP ---
TIME SESSION COMPLETED: TREATMENT TIME: 0 MINS. CHART REVIEWED. INTERDISCIPLINARY COMMUNICATION: ATTEMPTED TO SEE PATIENT X2, PATIENT WAS RECEIVING NURSING CARE THE 2ND TIME GETTING PREPARED FOR PROCEDURE. PLAN: WILL SEE NEXT TREATMENT DAY Therapist: GORDON GEIGER OTR/Jl Signature on file
[2018-01-14] MEDS: NOREPINEPHRINE INJ 4 MG in SODIUM CHLOR 0.9% 250 ML INJ 246 ML IV PRN (18:45)
[2018-01-14] MEDS: CEFEPIME INJ 2,000 MG in SODIUM CHLORIDE 0.9% INJ 100 ML IV SCH (20:29)
--- NOTE | 2018-01-14 20:32 | HHI.PR ---
Subjective Remarks Was extubated and reintubated yesterday, Now on FIO2 35 % and PEEP at 5. X ray chest shows Bilateral infiltrates. On antibiotics. On Precedex .Has some involuntary head movements. Objective Vital Signs Date Time Temp Pulse Resp B/P (MAP) Pulse Ox O2 Delivery O2 Flow Rate FiO2 01/14/18 18:50 98.4 106 27 81/56 98 01/14/18 18:30 97.9 93 21 81/56 97 01/14/18 18:09 98.1 90 24 93/61 98 01/14/18 16:07 97 35 01/14/18 14:00 104 01/14/18 13:09 98 35 01/14/18 12:00 95 01/14/18 12:00 99.3 101 28 95/54 (68) 93 01/14/18 12:00 30 01/14/18 10:00 92 01/14/18 09:15 97 30 01/14/18 08:00 30 01/14/18 08:00 97 01/14/18 08:00 99.4 72 14 107/60 (76) 97 01/14/18 06:00 95 01/14/18 04:12 97 30 01/14/18 04:00 50 01/14/18 04:00 92 20 107/58 (74) 97 01/14/18 04:00 92 01/14/18 02:00 79 01/14/18 00:03 94 30 01/14/18 00:00 93 01/14/18 00:00 98.3 88 17 126/62 (83) 100 01/14/18 00:00 50 01/13/18 22:00 96 I/O 01/13/18 01/13/18 01/13/18 01/14/18 01/14/18 01/14/18 07:00 15:00 23:00 07:00 15:00 23:00 Intake Total 959 ml 150 ml 419 ml 20 ml Output Total 1900 ml 750 ml 650 ml Balance -941 ml 150 ml -331 ml -650 ml 20 ml IV Total 50 ml 150 ml Tube Feeding 549 ml 119 ml Blood Product IV Normal Saline Flush 20 ml Other 360 ml 300 ml Output Urine Total 1900 ml 750 ml 500 ml Stool Total 150 ml Gastric Drainage Total 0 ml # Bowel Movements 1 Result Diagram: 01/14/18 0543 01/14/18 0543 Procedures PEG tube placement. Bone Marrow Biopsy 12/25/17 Objective Remarks General appearance: This elderly white male is , on vent support. HEENT: Head normocephalic. Pupils reactive. Ears: No inflammation. Throat was clear. Neck: No bruits or thyroid enlargement or lymphadenopathy. Chest: Distant breath sounds with few crackles at both lung bases.Occ wheezes Cardiovascular: The heart sounds are regular, S1 and S2. No murmur. No S3. Abdomen: Is soft, benign. No masses. Extremities: 2 + edema. Pt is sedated.Lethargic. Assessment and Plan Assessment and Plan IMPRESSION: 1. Bibasilar pleural effusions with atelectasis. 2. History of hypertension. 3. Hyperlipidemia. 4. COPD, emphysema. 5. History of Anaplastic NHL . 6. Respiratory Failure, Recurrent Plan : 1. Cont Vent support A/C PC rate 14 FIo2 35 % 2 Wean FIo2 to keep sat >92 3. Prednisone 10 mg bid 4. Nebs qid , duoneb. 5. CPAP trial daily 02/23, FIo2 35 % 6. Cont Diuresis 7. Precedex for sedation 8. D/W family at length Katiuska Blevins MD Jan 14, 2018 20:32
--- NOTE | 2018-01-14 22:57 | HHI.CCPN ---
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 On 12/25 patient received chemotherapy -CHOP regimen. Hospitalization further significant for PEG placement due to malnutrition and lack of appetite and thoracentesis for pleural effusion. Patient was being followed by pulmonary, cardiology and hematology services. Over the night patient had increased O2 requirements with high tube feed residual and concern for aspiration. A rapid response was called earlier this afternoon for worsening hypoxia despite NRM. Patient was emergently intubated and upon intubation he was found to have significant amount of tube feeds in the airway. An NG tube was placed on suction with 750 cc suctioned from the stomach. Patient was started on midazolam and fentanyl drips and phenylephrine for BP support. Patient was seen immediately on ICU arrival, 100% O2 with SPO2 100%. Patient requires 20 mics per minute of phenylephrine infusion. He is intubated and sedated, unresponsive. 01/02: No events over the night. Patient remains critically ill. He is currently sedated and intubated. He remains on phenylephrine at 80 mics per minute. FiO2 down to 0.6. T-max 98.6, I/O 1550/400. 01/03: Patient did well over the night. Norepinephrine weaned off. FiO2 currently at 0.5. Patient remains on a PEEP of 10. Sedation accomplished with propofol and fentanyl. Tmax 98.4. 01/04: Multiple episodes of diarrhea overnight. No C. difficile sent. Urine output decreased, 300 mL's over last 12 hours. Patient does not require any pressors, sedation is maintained with propofol at 30 and fentanyl at 150. During sedation vacation patient moves all extremities, agitated, but does not follow commands. Currently he is sedated and intubated. Morning chest x-ray reviewed, slight improvement in bibasilar infiltrates. 01/05: No events over the night. T-max of 98.6. Urine output 550 mL's over the last 24 hours. Ventilator on 0.4 FiO2. Sedation was stopped this morning, patient agitated moving all extremities but not following commands. Morning chest x-ray reviewed, no significant change compared to yesterday's, ET tube approximately 7 cm above clem. 01/06: Patient remains afebrile, on no pressors. Oxygenation down to 0.4 FiO2, but PEEP remains at 10. Trickle feeds started yesterday, still having residuals. Patient remains on low-dose propofol and fentanyl for sedation. Morning chest x-ray reviewed, still with bibasilar opacities, unchanged. 01/07: Remains sedated, orally intubated on mechanical ventilation. Fentanyl at 150 mics per minute decreased to 50 mics per minute. Abdomen remains distended. Tolerating tube feeds at 20 cc/h with residual 60 cc. 01/08: Sedated, orally intubated on mechanical ventilation. Had large amount of BM last night following Relistor. On tube feeds at 20 cc per hour. 01/09: Currently on propofol drip at 40 mcg/kg/min. Afebrile. GJ tube per IR yesterday. Tube feeds were restarted. at bedside. Continue to diuresis furosemide/albumin 01/10: Currently off all sedation. Transitioning to dexmedetomidine drip. Tolerating tube feeds via GJ tube. Positive BM. Creatinine up to 3.1. Blinks eyes to commands but not moving extremities. Withdraws to pain. 01/11: Afebrile. Long discussion with . Nephrology wishes to initiate hemodialysis today. Benefits and risks discussed. She wishes to wait another day to see if he has any significant recovery. Nephrology will give extra furosemide today. 01/12: More awake today. Follows commands. Eyes are open. Moves all 4 extremities spontaneously. does not wish to pursue hemodialysis today. Requesting decreasing furosemide drip to 2.5 mg/h due to "elevated BUN". 01/13: Intubated this a.m. due to acute hypoxic hypercapnic respiratory failure/ actively aspirating. Follow-up chest x-ray and ABG pending. Discussed with at bedside. A.m. laboratories all pending Subjective 01/14: Resting in bed in no acute distress. Long discussion with regarding worsening pleural effusions and need for hemodialysis. She will discuss with her family friend and Dr. Blevins.. Objective Vital Signs Date Time Temp Pulse Resp B/P (MAP) Pulse Ox O2 Delivery O2 Flow Rate FiO2 01/14/18 22:00 92 01/14/18 21:36 97 35 01/14/18 20:00 99.0 32 130/67 (88) 01/13/18 08:26 Ventilator 01/13/18 06:57 15.00 Intake and Output 01/14/18 01/14/18 01/15/18 08:00 16:00 00:00 Intake Total 1145 ml Output Total 650 ml 350 ml Balance -650 ml 795 ml Result Diagram: 01/14/18 0543 01/14/18 0543 Other Results Microbiology Date/Time Source Procedure Growth Status 01/01/18 17:57 Blood Peripheral Aerobic Blood Culture - Final NO GROWTH IN 5 DAYS Complete 01/01/18 17:57 Blood Peripheral Anaerobic Blood Culture - Final NO GROWTH IN 5 DAYS Complete 12/28/17 12:15 Fluid Pleural Fluid Fungal Smear - Final NO FUNGAL ELEMENTS SEEN. Resulted 12/28/17 12:15 Fluid Pleural Fluid Fungal Culture - Preliminary NO GROWTH IN 2 WEEKS Resulted 01/01/18 17:15 Sputum Endotracheal Gram Stain - Final Complete 01/01/18 17:15 Sputum Endotracheal Sputum Culture - Final HEAVY GROWTH NORMAL RESPIRATORY LISA Complete 01/01/18 17:15 Urine Catheterized Urine Urine Culture - Final NO GROWTH IN 48 HOURS. Complete Imaging Last Impressions Chest X-Ray 01/14/18 0600 Signed Impressions: Service Date/Time: Sunday, January 14, 2018 04:41 - CONCLUSION: No significant change Andres Drew MD Gastrostomy Tube Change 01/08/18 0000 Signed Impressions: Service Date/Time: Monday, January 08, 2018 14:35 - CONCLUSION: Conversion of the patient's existing gastrostomy tube to a gastrojejunostomy tube. Siva Bean Jr., MD Renal Ultrasound 01/05/18 0000 Signed Impressions: Service Date/Time: Friday, January 05, 2018 08:00 - CONCLUSION: Echogenic kidneys suggesting medical renal disease. Some ascites. Bilateral pleural effusions. Lee Mijares MD Head CT 01/05/18 0000 Signed Impressions: Service Date/Time: Friday, January 05, 2018 11:41 - CONCLUSION: 1. No acute abnormality is seen. 2. Old lacunar infarct at the left basal ganglia. 3. Fluid in the mastoid air cells on the right. Andres Valero MD Small Bowel X-Ray 01/03/18 0000 Signed Impressions: Service Date/Time: December 14:27 - CONCLUSION: 1. No leakage identified on injection through gastrostomy tube. No small bowel obstruction or significant dilatation. Elbert Carrasquillo MD Abdomen/Pelvis CT 01/02/18 0000 Signed Impressions: Service Date/Time: Tuesday, January 02, 2018 21:38 - CONCLUSION: 1. Free intraperitoneal air of unknown etiology. On the supine view most of the free air is around the gastrostomy tube and tip of the nasogastric tube as discussed above. 2. Mild to moderate ascites. Moderate anasarca. 3. Moderate bilateral effusions with basilar atelectasis. 4. Nonobstructing right renal calculus. Hay catheter in bladder. Elbert Carrasquillo MD Chest CT 12/30/17 0000 Signed Impressions: Service Date/Time: Saturday, December 30, 2017 21:13 - CONCLUSION: 1. Free intraperitoneal air in the upper abdomen of uncertain etiology. There is a gastrostomy present. 2. Moderate bilateral pleural effusions with compressive atelectasis. Patchy air space consolidation in the right upper lobe. 3. Moderate anasarca and ascites. 4. Findings called to the floor at the time of dictation. Elbert Carrasquillo MD Chest Ultrasound 12/27/17 0000 Signed Impressions: Service Date/Time: December 21:39 - CONCLUSION: Large left pleural effusion and would be amenable to thoracentesis. Frandy was made on the overlying skin. Andres Parekh MD Bone Biopsy CT 12/25/17 1142 Signed Impressions: Service Date/Time: Monday, December 25, 2017 12:32 - CONCLUSION: 1. Uncomplicated CT guided bone marrow aspirate. 2. Uncomplicated CT guided bone marrow biopsy. Lee Mijares MD CT Angiography 12/25/17 0000 Signed Impressions: Service Date/Time: Monday, December 25, 2017 09:26 - CONCLUSION: 1. No CT evidence for pulmonary artery embolism. 2. Moderate to large bilateral pleural effusions with associated compressive atelectasis at the lung bases. 3. 8mm nodule in the right middle lobe. Followup CT examination may be performed at 6 months to document stability if this has not been evaluated previously. 4. Very mildly prominent mediastinal and hilar nodes and partially imaged upper abdominal lymphadenopathy in this patient with history of lymphoma. Miguel Ashton MD Objective Remarks General -72-year-old male currently orotracheally intubated HEENT - pupils are equal, reactive about 3 mm bilaterally, sclerae are anicteric , neck is supple, no rigidity, positive JVD, + LIJ CVC (01/01) -site remains clean, + ETT CV -RRR with ectopy. S1, S2 no S4. Without murmur Chest -coarse rhonchorous breath sounds bilaterally, no wheezes, good air entry , Abrsda-a-Pjsn right chest -site remains clean Abdomen - soft, obese, appears non-tender, BS present, no hepatomegaly, no splenomegaly, + GJ tube Extremities - 2+ edema, + peripheral pulses, warm, no cyanosis Neuro - intubated, pupils equal and reactive, grimaces to pain but does not follow commands while on propofol drip. 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 Discussed with MRI brain. Rule out pontine CVA. She desires to wait additional day or 2 for prior sedative medications to "washout". Benefits and risks discussed with . She wishes to proceed with careful monitoring the present time. CV: Hypertension Dyslipidemia 2D echocardiogram revealed EF 65-70%. Tricuspid regurgitation. PA P 38 mmHg He is on aspirin 81 mg p.o. daily Currently not requiring antihypertensives and/or vasopressors Resp: Acute hypoxic hypercapnic respiratory failure secondary to aspiration pneumonia Right middle lobe pulmonary nodule 8 mm recommend 6 month follow-up CT chest COPD PRVC 16/500/1/5/40 PSV 15/5 at 40% later this afternoon if tolerated Ventilator bundle Patient written for budesonide/formoterol 160/4.5 2 puffs twice daily. Albuterol/ipratropium aerosols every 6 hours with albuterol aerosols every 2 hours as needed dyspnea On prednisone [address] Blevins/pulmonology is following GI: Status post GJ conversion by IR 3/27 Hypoalbuminemia Lansoprazole 30 mg twice daily for GI prophylaxis Docusate sodium liquid 100 mg twice daily for bowel regimen On Megestrol 800 mg daily for anorexia Nutrition recommends vital 1.5 goal 60 cc an hour.. On Nepro at 50 cc an hour due to renal failure : Hay catheter for accurate I's and O's in a critically ill patient Endo: Sliding scale insulin to maintain euglycemia/low regimen every 6 hours TSH is 1.18 Renal: Acute kidney injury likely secondary to sepsis/ATN Right-sided nephrolithiasis Urine eosinophils negative. Renal ultrasound reveals medical renal disease and prior CT abdomen/pelvis revealed non-obstructing right renal stones. Followed by Dr. Carver/nephrology Avoid nephrotoxic medication Furosemide drip currently 2.5 mg an hour per nephrology. 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 Followed by hematology. Restart chemotherapy when clinically stable No indication for transfusion of blood products at this time ID: Day #7 cefepime 2 g IV every 12 hours. Meropenem discontinued 01/08 Continue metronidazole 500 mg 3 times daily Followed by infectious disease for prescribing medication FEN: Hypernatremia Hyper magnesium Hyperphosphatemia Free water 150 cc every 6 hours Replace electrolytes as clinically indicated MSK: Sacral decubitus ulcer Wound care management Access Left IJ CVL placed 01/01 - 01/10 Right Xfilvo-u-Aydi placed 12/20/17 Prophylaxis -GI -lansoprazole -DVT -SCD/heparin subcu Level 3 follow-up. Discussed with . Care plan discussed and all questions answered Pascual Bran MD Jan 14, 2018 22:57
[2018-01-15] VITALS (18 sets, daily range): BP systolic 109–131; BP diastolic 54–78; PULSE 88–104; RESP 20–33; TEMP 97.9–99; O2SAT 94–100
[2018-01-15 05:29] LABS: AUTOMATED NEUTROPHIL # 9.4 TH/MM3 (1.8-7.7); BASOPHIL % 0.3 % (0.0-2.0); HEMATOCRIT 25.3 % (39.0-51.0); HEMOGLOBIN 8.6 GM/DL (13.0-17.0); LYMPH % 3.2 % (9.0-44.0); LYMPHOCYTE # 0.3 TH/MM3 (1.0-4.8); MEAN CELL VOLUME 85.8 FL (80.0-100.0); MEAN CORPUSCULAR HGB CONC 33.8 % (32.0-36.0); MEAN PLATELET VOLUME 9.3 FL (7.0-11.0); MONO % 4.8 % (0.0-8.0); MONOCYTE # 0.5 TH/MM3 (0-0.9); NEUT % 91.7 % (16.0-70.0); PLATELET COUNT 363 TH/MM3 (150-450); RED BLOOD COUNT 2.95 MIL/MM3 (4.50-5.90); RED CELL DISTRIBUTION WIDTH 17.8 % (11.6-17.2); WHITE BLOOD COUNT 10.3 TH/MM3 (4.0-11.0)
[2018-01-15] MEDS: metroNIDAZOLE 500 MG TAB PO SCH ×2 (05:30→13:00)
[2018-01-15] MEDS: HEPARIN SODIUM - SQ 10,000 UNITS/ML VIAL SQ SCH ×3 (05:30→20:30)
[2018-01-15] MEDS: FREE WATER G-TUBE SCH ×5 (05:30→22:23)
[2018-01-15] MEDS: ARTIFICIAL TEARS OPTH SOLN 15 ML BTL EACH EYE SCH ×3 (05:30→22:00)
[2018-01-15] MEDS: INSULIN ASPART SUPPLEMENTAL SCALE SQ SCH ×4 (05:30→18:00)
--- NOTE | 2018-01-15 05:49 | RADRPT ---
EXAM DATE/TIME: 01/15/2018 04:54 [place] COMPARISON: CHEST SINGLE AP, January 14, 2018, 4:41. INDICATIONS : Short of breath. MEDICAL HISTORY : Chronic obstructive pulmonary disease. Hypertension lymphoma, CVA. SURGICAL HISTORY : Infusaport, back surgery. ENCOUNTER: Subsequent ACUITY: 2 weeks PAIN SCORE: Non-responsive. LOCATION: Bilateral chest FINDINGS: Endotracheal tube tip is slightly greater than 7 cm above the clem. Right central line descends in the SVC. There is persistent hazy bilateral low lung zone pleuroparenchymal opacities. Cardiac contou rs are grossly unchanged. CONCLUSION: Stable aeration Andres Drew MD on January 15, 2018 at 5:46 Board Certified Radiologist. This report was verified electronically.
[2018-01-15 05:57] LABS: BICARBONATE 20.4 MEQ/L (21.0-32.0); CREATININE 4.31 MG/DL (0.60-1.30); MAGNESIUM 2.5 MG/DL (1.5-2.5)
[2018-01-15 05:59] LABS: PHOSPHORUS 4.4 MG/DL (2.5-4.9)
[2018-01-15] MEDS: CHLORHEXIDINE 0.12% (ORAL KIT) 15 ML CUP MT SCH ×4 (07:47→20:00)
[2018-01-15] MEDS: BUDESONIDE-FORMOTEROL 160/4.5 MCG INHALER INH SCH ×2 (07:48→21:00)
[2018-01-15] MEDS: RESP: ALBUTEROL 2.5 MG/IPRATROPIUM 0.5 MG NEB (SCH) NEB ×3 (08:48→20:48)
[2018-01-15] MEDS: SODIUM CHLORIDE 0.9% FLUSH 10 ML FLUSH IV FLUSH SCH ×2 (09:00→20:31)
[2018-01-15] MEDS: ASPIRIN 81 MG CHEW TAB CHEW SCH (09:38)
[2018-01-15] MEDS: MULTIVITAMIN TAB PO SCH (09:38)
[2018-01-15] MEDS: LANSOPRAZOLE SOLUTAB 30 MG TAB G-TUBE SCH ×2 (09:38→20:30)
[2018-01-15] MEDS: predniSONE 10 MG TAB PO SCH ×2 (09:38→20:30)
[2018-01-15] MEDS: MEGESTROL ACETATE SUSP 400 MG/10 ML CUP PO SCH (09:39)
[2018-01-15] MEDS: DOCUSATE SODIUM 100 MG/10 ML UDC OG-TUBE SCH ×2 (09:39→20:30)
--- NOTE | 2018-01-15 10:15 | PD.WCN.NOT ---
Wound Consult Additional Information: Patient not seen. Spoke with RN Alice Seymour [facility], Patient is known to wound care saw patient on 12/31 and 12/26 for buttock area.Per RN Buttock open areas present as described in previous documentation.Please continue to follow recommendations made on 12/26 and 12/31. DO NOT apply foam dressings to buttock area.DO NOT use thick cotton pads under patient, use ultra sorb pads for incontinence and moisture management.Apply thick layer of Calazime skin protectant paste BID and PRN. Please keep patient turned every 2 hours and PRN for comfort and offloading of pressure from daxa prominences. Please continue with recommendations noted from previous wound care visit.Please [facility] wound care nurse for wound deterioration.Please do not reconsult. Linh Vega [facility] Jan 15, 2018 10:15
--- NOTE | 2018-01-15 12:15 | PD.ONC.PN ---
Subjective Subjective Remarks Afebrile overnight. Patient intubated, partially sedated. on pressor support. Objective Data Date Time Temp Pulse Resp B/P (MAP) Pulse Ox O2 Delivery O2 Flow Rate FiO2 01/15/18 08:49 94 35 01/15/18 06:00 88 01/15/18 04:19 99 35 01/15/18 04:00 99 01/15/18 04:00 35 01/15/18 04:00 99.0 99 25 113/65 (81) 98 01/15/18 02:00 90 01/15/18 00:58 97 35 01/15/18 00:00 97.9 103 27 130/78 (95) 97 01/15/18 00:00 90 01/15/18 00:00 35 01/14/18 22:00 92 01/14/18 21:36 97 35 01/14/18 20:00 99 01/14/18 20:00 99.0 99 32 130/67 (88) 99 01/14/18 20:00 35 01/14/18 18:50 98.4 106 27 81/56 98 01/14/18 18:45 93 81/51 01/14/18 18:30 97.9 93 21 81/56 97 01/14/18 18:09 98.1 90 24 93/61 98 01/14/18 18:00 112 01/14/18 16:07 97 35 01/14/18 16:00 35 01/14/18 16:00 93 01/14/18 16:00 98.1 93 23 102/53 (69) 95 01/14/18 14:00 104 01/14/18 13:09 98 35 01/15/18 01/15/18 01/15/18 07:00 15:00 23:00 Intake Total 2383 ml Output Total 500 ml Balance 1883 ml Result Diagram: 01/15/18 0500 01/15/18 0500 Laboratory Results Laboratory Tests Test 01/15/18 05:00 White Blood Count 10.3 TH/MM3 Red Blood Count 2.95 MIL/MM3 Hemoglobin 8.6 GM/DL Hematocrit 25.3 % Mean Corpuscular Volume 85.8 FL Mean Corpuscular Hemoglobin 29.0 PG Mean Corpuscular Hemoglobin Concent 33.8 % Red Cell Distribution Width 17.8 % Platelet Count 363 TH/MM3 Mean Platelet Volume 9.3 FL Neutrophils (%) (Auto) 91.7 % Lymphocytes (%) (Auto) 3.2 % Monocytes (%) (Auto) 4.8 % Eosinophils (%) (Auto) 0.0 % Basophils (%) (Auto) 0.3 % Neutrophils # (Auto) 9.4 TH/MM3 Lymphocytes # (Auto) 0.3 TH/MM3 Monocytes # (Auto) 0.5 TH/MM3 Eosinophils # (Auto) 0.0 TH/MM3 Basophils # (Auto) 0.0 TH/MM3 CBC Comment AUTO DIFF Differential Comment AUTO DIFF CONFIRMED Blood Urea Nitrogen 120 MG/DL Creatinine 4.31 MG/DL Random Glucose 152 MG/DL Calcium Level 8.0 MG/DL Phosphorus Level 4.4 MG/DL Magnesium Level 2.5 MG/DL Sodium Level 151 MEQ/L Potassium Level 4.3 MEQ/L Chloride Level 118 MEQ/L Carbon Dioxide Level 20.4 MEQ/L Anion Gap 13 MEQ/L Estimat Glomerular Filtration Rate 14 ML/MIN Imaging Studies Last 24 hours Impressions Chest X-Ray 01/15/18 0600 Signed Impressions: Service Date/Time: Monday, January 15, 2018 04:54 - CONCLUSION: Stable aeration Andres Drew MD Administered Medications Medications (Trade) Dose Ordered Sig/Candace Route PRN Reason Start Time Stop Time Status Last Admin Dose Admin Sodium Chloride (NS Flush) 2 ml BID IV FLUSH 12/22/17 21:00 01/15/18 09:00 Ondansetron HCl (Zofran Inj) 4 mg Q6H PRN IVP NAUSEA OR VOMITING 12/22/17 18:15 01/01/18 10:02 Zolpidem Tartrate (Ambien) 5 mg HS PRN PO INSOMNIA 12/22/17 20:15 12/26/17 20:30 Megestrol Acetate (Megace Liq) 800 mg DAILY PO 12/23/17 09:00 01/15/18 09:39 Budesonide/ Formoterol Fumarate (Symbicort 160-4.5 Mcg Inh) 1 puff Q12HR INH 12/22/17 21:00 01/07/18 09:00 Atorvastatin Calcium (Lipitor) 80 mg DAILY PO 12/23/17 09:00 Future Hold 01/08/18 08:32 Multivitamins (Theragran) 1 tab DAILY PO 12/23/17 09:00 01/15/18 09:38 Heparin Sodium (Porcine) (Heparin Central Flush) 250 units UNSCH PRN IV FLUSH SEE PROTOCOL 12/22/17 20:30 12/27/17 20:27 Guaifenesin/ Dextromethorphan (Robitussin Dm 200-20 Mg/10 ml Liq) 10 ml Q4H PRN PO cough interfering with rest 12/22/17 21:00 12/26/17 18:27 Calcium Carbonate (Tums Chew) 500 mg Q12HR PRN CHEW indigestion 12/31/17 16:15 01/01/18 05:27 Prednisone (Deltasone) 10 mg BID PO 01/01/18 21:00 01/15/18 09:38 Chlorhexidine Gluconate (Peridex 0.12% Liq) 15 ml BID@08,20 MT 01/01/18 20:00 01/15/18 08:00 Propofol 100 ml @ 2.757 mls/ hr TITRATE PRN IV SEDATION 01/02/18 11:15 01/10/18 09:22 Insulin Aspart (NovoLOG SUPPLEMENTAL SCALE) 1 Q6HR SQ 01/07/18 18:00 01/15/18 00:00 Docusate Sodium (Colace Liq) 100 mg Q12HR OG-TUBE 01/07/18 21:00 01/15/18 09:39 Metronidazole (Flagyl) 500 mg Q8H PO 01/08/18 22:00 01/15/18 05:30 Lansoprazole (Prevacid Odt) 30 mg BID G-TUBE 01/09/18 21:00 01/15/18 09:38 Artificial Tears (Tears Naturale Opth Soln) 1 drop Q8HR EACH EYE 01/09/18 14:00 01/15/18 05:30 Heparin Sodium (Porcine) (Heparin Inj) 5,000 units Q8HR SQ 01/09/18 14:00 01/15/18 05:30 Aspirin (Aspirin Chew) 81 mg DAILY CHEW 01/10/18 11:00 01/15/18 09:38 Dexmedetomidine HCl 1000 mcg/ Sodium Chloride 250 ml @ 4.76 mls/hr TITRATE PRN IV SEDATION 01/10/18 13:45 01/14/18 17:30 Water (Free Water) VOLUME: 150 ML Q6HR G-TUBE 01/10/18 18:00 01/15/18 05:30 Cefepime HCl 2000 mg/Sodium Chloride 100 ml @ 200 mls/hr Q24H IV 01/12/18 22:00 01/14/18 20:29 Chlorhexidine Gluconate (Peridex 0.12% Liq) 15 ml BID@08,20 MT 01/13/18 08:00 01/14/18 08:00 Albuterol/ Ipratropium (Duoneb Neb) 1 ampule Q6HR WHILE AWAKE NEB NEB 01/13/18 14:00 01/15/18 08:48 Fentanyl Citrate (fentaNYL INJ) 25 mcg Q1HR PRN IV PUSH Breakthrough pain 01/14/18 17:00 01/15/18 04:30 Norepinephrine Bitartrate 4 mg/ Sodium Chloride 250 ml @ 7.5 mls/hr TITRATE PRN IV Blood pressure management 01/14/18 18:45 01/14/18 18:45 Objective Remarks GENERAL: Intubated male, supine in bed. SKIN: Warm and dry. HEAD: Normocephalic. EYES: No injection or drainage. NECK: Supple, trachea midline. CARDIOVASCULAR: +S1/S2 RESPIRATORY: on CPAP, occasional rhonchi. GASTROINTESTINAL: Abdomen mildly distended. GJ tube in place. EXTREMITIES: No cyanosis. extensive edema all extremities. NEUROLOGICAL: intubated, does not follow commands, does track with eyes. 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 monitor CBC. no transfusion today. 01/14/18: Pt remains intubated. Transfuse 1 unit PRBC's for increased O2 demands, hemoglobin of 7.5. Monitor CBC in am. 01/13/18: await labs today. prognosis poor with worsening renal function, continue reliance on mechanical ventilation. 01/12: renal function continuing to worsen. considering hemodialysis per nephrology recommendations. next chemotherapy would be next week if patient improved 01/11: WBC remains recovered, renal function continuing to decline. patient remains intubated. plan from oncology standpoint is to give a second round of chemotherapy if he clinically improves. 01/10: patient remains critically ill, intubated and is currently minimally responsive off sedation. will hold chemotherapy until clinically improved. 01/09: Next cycle of CHOP chemo is due next week; we will likely hold this until he is more stable. Continue to monitor CBC. 01/08: monitor CBC, WBC is recovered. 01/07: Continue neupogen x 1 more day. Monitor CBC. Transfuse 1 unit packed red blood cells if hemoglobin trending down tomorrow. CXR shows worsening disease. Abx per ID, Vent mgmt by reducing system operator. 01/06: Patient no longer neutropenic. Continue Neupogen today. Monitor CBC. 01/05: Noted white blood cells minimally improved. Continue Neupogen for now. Await results from CT brain. Supportive care. 01/04: remains on vent. Off pf pressors. Pancytopenia with Neutropenia. Continue neupogen. Vent management per Programmer Analyst. Extensive d/w and DIL ( REPRODUCTION SPECIALIST) . answered their questions. Continue maximal support. 01/03: Continue Neupogen. Transfuse 1 unit packed red blood cells today for hemoglobin of 7.5. Monitor CBC. 01/02: patient remains intubated, sedated. start Neupogen for neutropenia + infection 01/01: patient in respiratory failure. intubated and transferring to intensive care. 12/31: C. difficile negative. Bone marrow biopsy shows no lymphoma involvement. Cytology from thoracentesis pending. Transfuse 1 unit PRBC for symptomatic with hgb 7.7. Patient would benefit from inpatient rehab for strengthening 12/28: continue solu-medrol. await thoracentesis. consult OT. 12/27: start Solu-medrol 40mg IV q 6. consult pulmonology for worsening infiltrates, pleural effusions. monitor CBC, counts dropping. 12/26: CT chest shows Bilateral Pl effusion. Continue aggressive diuresis. Had CHOP C1D1 yesterday. Tolerated well. Next chemo in 3 weeks as outpt. Continue allopurinol and prednisone. 12/25: CTA shows no PE. +LAD, PE. dyspnea likely d/t lymphoma. will give Solu- medrol 1g IV and start CHOP today. Anaplastic large cell, non-Hodgkin's lymphoma, at least stage III. --unclear whether he has any B symptoms, but this could be most likely given that he has significant weight loss, which is one of the symptoms of lymphoma. --Leukocytosis, anemia and neutrophilia, most likely due to bone marrow involvement by the lymphoma until proven otherwise. (2) Renal insufficiency ICD Codes: N28.9 - Disorder of kidney and ureter, unspecified Plan: --Nephrology following. --unclear etiology Assessment 72y/o male with newly diagnosed anaplastic large cell NHL. h/o COPD, hypercholesterolemia, hypertension, history of previous stroke. HPI: started 8 weeks ago with a cough mixed with greenish phlegm and shortness of breath. CT cap showed diffuse lymphadenopathy on both sides of the diaphragm. PET scan showed increased uptake in the lymph nodes involving the neck, chest, mediastinal and hilar area, retroperitoneum and pelvic lymph nodes. biopsy of the left neck mass=anaplastic large cell NHL echocardiogram, LVEF=55-70%. MUGA scan, showed EF of 60%. Attending Statement The exam, history, and the medical decision-making described in the above note were completed with the assistance of the mid-level provider. I reviewed and agree with the findings presented. I attest that I had a [id number] encounter with the patient on the same day, and personally performed and documented my assessment and findings in the medical record. On CPAP trial. Sedation is on hold. Pt is restless. at bedside. Creatinine is rising. Nephro to follow. d/w . answered her questions. Susy La Jan 15, 2018 12:15 Josy Suarez MD Jan 15, 2018 22:20
--- NOTE | 2018-01-15 12:29 | HHI.PR ---
Subjective Remarks Was extubated and reintubated . Now on FIO2 35 % and PEEP at 5. Less head movements. X ray chest shows Bilateral infiltrates. On antibiotics. On Precedex Poor output. Objective Vital Signs Date Time Temp Pulse Resp B/P (MAP) Pulse Ox O2 Delivery O2 Flow Rate FiO2 01/15/18 08:49 94 35 01/15/18 06:00 88 01/15/18 04:19 99 35 01/15/18 04:00 99 01/15/18 04:00 35 01/15/18 04:00 99.0 99 25 113/65 (81) 98 01/15/18 02:00 90 01/15/18 00:58 97 35 01/15/18 00:00 97.9 103 27 130/78 (95) 97 01/15/18 00:00 90 01/15/18 00:00 35 01/14/18 22:00 92 01/14/18 21:36 97 35 01/14/18 20:00 99 01/14/18 20:00 99.0 99 32 130/67 (88) 99 01/14/18 20:00 35 01/14/18 18:50 98.4 106 27 81/56 98 18 18:45 93 81/51 01/14/18 18:30 97.9 93 21 81/56 97 01/14/18 18:09 98.1 90 24 93/61 98 01/14/18 18:00 112 01/14/18 16:07 97 35 01/14/18 16:00 35 01/14/18 16:00 93 01/14/18 16:00 98.1 93 23 102/53 (69) 95 01/14/18 14:00 104 01/14/18 13:09 98 35 I/O 01/14/18 01/14/18 01/14/18 01/15/18 01/15/18 01/15/18 07:00 15:00 23:00 07:00 15:00 23:00 Intake Total 1245 ml 2383 ml Output Total 650 ml 350 ml 500 ml Balance -650 ml 895 ml 1883 ml IV Total 350 ml 1100 ml Tube Feeding 475 ml 1283 ml Packed Cells 400 ml Blood Product IV Normal Saline Flush 20 ml Output Urine Total 500 ml 350 ml 400 ml Stool Total 150 ml 100 ml Gastric Drainage Total 0 ml Result Diagram: 4/3/18 0500 01/15/18 0500 Procedures PEG tube placement. Bone Marrow Biopsy 12/25/17 Objective Remarks General appearance: This elderly white male is , on vent support. HEENT: Head normocephalic. Pupils reactive. Ears: No inflammation. Throat was clear. Neck: No bruits or thyroid enlargement or lymphadenopathy. Chest: Distant breath sounds with few crackles at both lung bases.Occ wheezes bilateral. Cardiovascular: The heart sounds are regular, S1 and S2. No murmur. No S3. Abdomen: Is soft, benign. No masses. Extremities: 2 + edema. Pt is sedated.Lethargic. Assessment and Plan Assessment and Plan IMPRESSION: 1. Bibasilar pleural effusions with atelectasis. 2. History of hypertension. 3. Hyperlipidemia. 4. COPD, emphysema. 5. History of Anaplastic NHL . 6. Respiratory Failure, Recurrent Plan : 1. Cont Vent support A/C PC rate 12 FIo2 35 % 2 Renal to decide on dialysis 3. Prednisone 10 mg bid 4. Nebs qid , duoneb. 5. CPAP trial daily 02/23, FIo2 35 % 6. CXR CBC,BMP in am 7. Reduce Precedex 8. D/W family at length Katiuska Blevins MD Jan 15, 2018 12:29
--- NOTE | 2018-01-15 12:32 | HHI.PR ---
Subjective Remarks family wants 2nd opinion I will sign off Objective Vital Signs Date Time Temp Pulse Resp B/P (MAP) Pulse Ox O2 Delivery O2 Flow Rate FiO2 01/15/18 08:49 94 35 01/15/18 06:00 88 01/15/18 04:19 99 35 01/15/18 04:00 99 01/15/18 04:00 35 01/15/18 04:00 99.0 99 25 113/65 (81) 98 01/15/18 02:00 90 01/15/18 00:58 97 35 01/15/18 00:00 97.9 103 27 130/78 (95) 97 01/15/18 00:00 90 01/15/18 00:00 35 01/14/18 22:00 92 01/14/18 21:36 97 35 01/14/18 20:00 99 01/14/18 20:00 99.0 99 32 130/67 (88) 99 01/14/18 20:00 35 01/14/18 18:50 98.4 106 27 81/56 98 01/14/18 18:45 93 81/51 01/14/18 18:30 97.9 93 21 81/56 97 01/14/18 18:09 98.1 90 24 93/61 98 01/14/18 18:00 112 01/14/18 16:07 97 35 01/14/18 16:00 35 01/14/18 16:00 93 01/14/18 16:00 98.1 93 23 102/53 (69) 95 01/14/18 14:00 104 01/14/18 13:09 98 35 I/O 01/14/18 01/14/18 01/14/18 01/15/18 01/15/18 01/15/18 07:00 15:00 23:00 07:00 15:00 23:00 Intake Total 1245 ml 2383 ml Output Total 650 ml 350 ml 500 ml Balance -650 ml 895 ml 1883 ml IV Total 350 ml 1100 ml Tube Feeding 475 ml 1283 ml Packed Cells 400 ml Blood Product IV Normal Saline Flush 20 ml Output Urine Total 500 ml 350 ml 400 ml Stool Total 150 ml 100 ml Gastric Drainage Total 0 ml Result Diagram: 01/15/18 0500 01/15/18 0500 Procedures PEG tube placement. Bone Marrow Biopsy 12/25/17 Hannah Carver MD Jan 15, 2018 12:32
--- NOTE | 2018-01-15 15:40 | HHI.IDPN ---
Note Infectious Disease Note ID xcover for Notes reviewed Reintubated since last seen. Sedated. Blood pressure stable. No fever. No rash No diarrhea Sputum culture normal resp david. WBC normal. 72-year-old white male who was diagnosed with lymphoma. The patient was noted to have become ill 2 months ago. He was noted to have cough and he was given 3 rounds of oral antibiotics without improvement of the cough. Subsequent workup revealed mediastinal adenopathy and other areas of adenopathy, and a biopsy of the lesion of the neck came back showing lymphoma. During his stay at [facility], he had no fever. He was given antibiotics. An Infusaport was placed on 12/20 for anticipated chemotherapy. PAST MEDICAL HISTORY: Stage IIIB anaplastic large cell lymphoma, COPD, hypertension, hyperlipidemia, history of CVA without residual deficits, nonsustained V-tach at [facility], neuropathy of the lower extremities, back surgery, Infusaport placement on 12/20/2017. ALLERGIES: HYDROCODONE. Vital Signs Date Time Temp Pulse Resp B/P (MAP) Pulse Ox O2 Delivery O2 Flow Rate FiO2 01/15/18 14:09 97 35 01/15/18 08:49 94 35 01/15/18 06:00 88 01/15/18 04:19 99 35 01/15/18 04:00 99 01/15/18 04:00 35 01/15/18 04:00 99.0 99 25 113/65 (81) 98 01/15/18 02:00 90 01/15/18 00:58 97 35 01/15/18 00:00 97.9 103 27 130/78 (95) 97 01/15/18 00:00 90 01/15/18 00:00 35 01/14/18 22:00 92 01/14/18 21:36 97 35 01/14/18 20:00 99 01/14/18 20:00 99.0 99 32 130/67 (88) 99 01/14/18 20:00 35 01/14/18 18:50 98.4 106 27 81/56 98 01/14/18 18:45 93 81/51 01/14/18 18:30 97.9 93 21 81/56 97 01/14/18 18:09 98.1 90 24 93/61 98 01/14/18 18:00 112 01/14/18 16:07 97 35 01/14/18 16:00 35 01/14/18 16:00 93 01/14/18 16:00 98.1 93 23 102/53 (69) 95 Laboratory Tests Test 01/14/18 05:43 01/15/18 05:00 White Blood Count 9.4 TH/MM3 10.3 TH/MM3 Red Blood Count 2.59 MIL/MM3 2.95 MIL/MM3 Hemoglobin 7.5 GM/DL 8.6 GM/DL Hematocrit 22.1 % 25.3 % Mean Corpuscular Volume 85.2 FL 85.8 FL Mean Corpuscular Hemoglobin 29.0 PG 29.0 PG Mean Corpuscular Hemoglobin Concent 34.1 % 33.8 % Red Cell Distribution Width 17.7 % 17.8 % Platelet Count 336 TH/MM3 363 TH/MM3 Mean Platelet Volume 9.7 FL 9.3 FL Neutrophils (%) (Auto) 92.8 % 91.7 % Lymphocytes (%) (Auto) 3.4 % 3.2 % Monocytes (%) (Auto) 3.2 % 4.8 % Eosinophils (%) (Auto) 0.1 % 0.0 % Basophils (%) (Auto) 0.5 % 0.3 % Neutrophils # (Auto) 8.7 TH/MM3 9.4 TH/MM3 Lymphocytes # (Auto) 0.3 TH/MM3 0.3 TH/MM3 Monocytes # (Auto) 0.3 TH/MM3 0.5 TH/MM3 Eosinophils # (Auto) 0.0 TH/MM3 0.0 TH/MM3 Basophils # (Auto) 0.0 TH/MM3 0.0 TH/MM3 CBC Comment AUTO DIFF AUTO DIFF Differential Comment AUTO DIFF CONFIRMED AUTO DIFF CONFIRMED Dohle Bodies PRESENT Platelet Estimate NORMAL Platelet Morphology Comment NORMAL Laboratory Tests Test 01/14/18 05:43 01/15/18 05:00 Blood Urea Nitrogen 110 MG/DL 120 MG/DL Creatinine 4.06 MG/DL 4.31 MG/DL Random Glucose 137 MG/DL 152 MG/DL Calcium Level 7.7 MG/DL 8.0 MG/DL Phosphorus Level 5.0 MG/DL 4.4 MG/DL Magnesium Level 2.6 MG/DL 2.5 MG/DL Sodium Level 148 MEQ/L 151 MEQ/L Potassium Level 4.4 MEQ/L 4.3 MEQ/L Chloride Level 117 MEQ/L 118 MEQ/L Carbon Dioxide Level 20.3 MEQ/L 20.4 MEQ/L Anion Gap 11 MEQ/L 13 MEQ/L Estimat Glomerular Filtration Rate 15 ML/MIN 14 ML/MIN Microbiology Date/Time Source Procedure Growth Status 01/01/18 17:57 Blood Peripheral Aerobic Blood Culture - Final NO GROWTH IN 5 DAYS Complete 01/01/18 17:57 Blood Peripheral Anaerobic Blood Culture - Final NO GROWTH IN 5 DAYS Complete 12/28/17 12:15 Fluid Pleural Fluid Fungal Smear - Final NO FUNGAL ELEMENTS SEEN. Resulted 12/28/17 12:15 Fluid Pleural Fluid Fungal Culture - Preliminary NO GROWTH IN 2 WEEKS Resulted 01/01/18 17:15 Sputum Endotracheal Gram Stain - Final Complete 01/01/18 17:15 Sputum Endotracheal Sputum Culture - Final HEAVY GROWTH NORMAL RESPIRATORY DAVID Complete 01/01/18 17:15 Urine Catheterized Urine Urine Culture - Final NO GROWTH IN 48 HOURS. Complete IMAGING Last Impressions Chest X-Ray 01/13/18 0000 Signed Impressions: Service Date/Time: Saturday, January 13, 2018 07:56 - CONCLUSION: 1. The endotracheal tube is in place with the tip approximately 5 cm above the clem. 2. Bilateral perihilar and bibasilar airspace disease remains. There are apparent bilateral effusions. Bijan Loredo MD Chest X-Ray 01/11/18 0600 Signed Impressions: Service Date/Time: Thursday, January 11, 2018 04:00 - CONCLUSION: Right greater than left parenchymal consolidation and small moderate right, small left pleural effusions not significantly changed. Andres Parekh MD Chest X-Ray 01/09/18 0600 Signed Impressions: Service Date/Time: Tuesday, January 09, 2018 05:20 - CONCLUSION: Stable bilateral airspace disease and probable small pleural effusions. Kaveh Perales MD Gastrostomy Tube Change 01/08/18 0000 Signed Impressions: Service Date/Time: Monday, January 08, 2018 14:35 - CONCLUSION: Conversion of the patient's existing gastrostomy tube to a gastrojejunostomy tube. Siva Bean Jr., MD Renal Ultrasound 01/05/18 0000 Signed Impressions: Service Date/Time: Friday, January 05, 2018 08:00 - CONCLUSION: Echogenic kidneys suggesting medical renal disease. Some ascites. Bilateral pleural effusions. Lee Mijares MD Head CT 01/05/18 0000 Signed Impressions: Service Date/Time: Friday, January 05, 2018 11:41 - CONCLUSION: 1. No acute abnormality is seen. 2. Old lacunar infarct at the left basal ganglia. 3. Fluid in the mastoid air cells on the right. Andres Valero MD Small Bowel X-Ray 01/03/18 0000 Signed Impressions: Service Date/Time: December 14:27 - CONCLUSION: 1. No leakage identified on injection through gastrostomy tube. No small bowel obstruction or significant dilatation. Elbert Carrasquillo MD Abdomen/Pelvis CT 01/02/18 0000 Signed Impressions: Service Date/Time: Tuesday, January 02, 2018 21:38 - CONCLUSION: 1. Free intraperitoneal air of unknown etiology. On the supine view most of the free air is around the gastrostomy tube and tip of the nasogastric tube as discussed above. 2. Mild to moderate ascites. Moderate anasarca. 3. Moderate bilateral effusions with basilar atelectasis. 4. Nonobstructing right renal calculus. Hay catheter in bladder. Elbert Carrasquillo MD Chest CT 12/30/17 0000 Signed Impressions: Service Date/Time: Saturday, December 30, 2017 21:13 - CONCLUSION: 1. Free intraperitoneal air in the upper abdomen of uncertain etiology. There is a gastrostomy present. 2. Moderate bilateral pleural effusions with compressive atelectasis. Patchy air space consolidation in the right upper lobe. 3. Moderate anasarca and ascites. 4. Findings called to the floor at the time of dictation. Elbert Carrasquillo MD Chest Ultrasound 12/27/17 0000 Signed Impressions: Service Date/Time: December 21:39 - CONCLUSION: Large left pleural effusion and would be amenable to thoracentesis. Frandy was made on the overlying skin. Andres Parekh MD Bone Biopsy CT 12/25/17 1142 Signed Impressions: Service Date/Time: Monday, December 25, 2017 12:32 - CONCLUSION: 1. Uncomplicated CT guided bone marrow aspirate. 2. Uncomplicated CT guided bone marrow biopsy. Lee Mijares MD CT Angiography 12/25/17 0000 Signed Impressions: Service Date/Time: Monday, December 25, 2017 09:26 - CONCLUSION: 1. No CT evidence for pulmonary artery embolism. 2. Moderate to large bilateral pleural effusions with associated compressive atelectasis at the lung bases. 3. 8mm nodule in the right middle lobe. Followup CT examination may be performed at 6 months to document stability if this has not been evaluated previously. 4. Very mildly prominent mediastinal and hilar nodes and partially imaged upper abdominal lymphadenopathy in this patient with history of lymphoma. Miguel Ashton MD PHYSICAL EXAMINATION: GENERAL: On the ventilator. Sedated. NAD HEENT: No icterus. No conjunctival erythema. Dry oral mucosa, orally intubated NECK: Supple. No adenopathy. No swelling. LUNGS: Coarse breath sounds bilaterally. Decreased at bases HEART: Regular S1 and S2. No murmurs, rubs or gallops. ABDOMEN: Markedly diminished bowel sounds, soft. EXTREMITIES: No clubbing or cyanosis, 1+ edema of the extremities. SKIN: No rash. NEUROLOGIC: Sedated PSYCHIATRIC: Unable to assess. IV line sites with no e.o infection. IMPRESSION: 1. Pneumonia. Bibasilar lung infiltrates. s/p long course of antibiotics. 2. Acute respiratory failure. Intubated on the ventilator. 3. Bilateral pleural effusions. Post thoracentesis. 4. Lymphoma. Treated with chemotherapy. 5. Neutropenia postchemotherapy. resolved. Now with mild leukocytosis 6. Decreased nutrition in patient with anorexia and now post percutaneous endoscopic gastrostomy placement. Tube feeds placed on hold because of concern for aspiration 7. Acute renal failure. RECOMMENDATIONS: DC Cefepime IV DC Flagyl po or peg/J tube. Component of fluid overload. Follow cultures Monitor progress Extensive dw family: CXRs compared and reviewed. DW prior to meeting them agree with stopping antibiotics as concern abnormal CXR likely fluid overload related. Offered family 3 choices: 1.Stop all antibiotics today as clinically does not behave like infection. 2. Stop antibiotics after a couple sessions of HD. 3.Continue Antibiotics. Explained the risk of MDROs and Cdiff infection given prior antibiotic exposure prior to this admission as well as during this admission. Dw family in presence of RN for the patient. Patient family would like all antibiotics stopped today. They do not want to wait for HD decision. D/W RN Will follow prn. Please call sooner if any change in clinical condition or questions. Time spent in excess of 40 mins. Mandie Briggs MD Jan 15, 2018 15:40
--- NOTE | 2018-01-15 16:34 | RADRPT ---
EXAM DATE/TIME: 01/15/2018 15:06 [place] COMPARISON: No previous studies available for comparison. INDICATIONS : Abdominal distention, evaluate for ileus MEDICAL HISTORY : Chronic obstructive pulmonary disease. Hypertension Lymphoma. CVA SURGICAL HISTORY : infusport, back surgery, gastric tube ENCOUNTER: Subsequent ACUITY: 2 weeks PAIN SCORE: Non-responsive. LOCATION: Bilateral abdomen FINDINGS: There is an overall paucity of bowel gas. No perceptible dilatation. A percutaneously placed gastric feeding tube is present. CONCLUSION: Nonspecific, nonobstructive bowel gas pattern. PEG tube present. Andres Parekh MD on January 15, 2018 at 16:32 Board Certified Radiologist. This report was verified electronically.
[2018-01-15] MEDS ORDERED: CHLOROTHIAZIDE SOD 500 MG VIAL IV ONE (17:00)
--- NOTE | 2018-01-15 17:01 | PD.CONS ---
[facility] Service Nephrology Consult Requested By Dr. Bran Reason for Consult Acute Renal Failure, second opinion Primary Care Physician Unknown History of Present Illness This is a 72 y/o male. He was diagnosed last month with Stage IIIB anaplastic large cell lymphoma, initially presenting to [facility] for shortness of breath, and after lymphoma diagnosis he was transferred to this facility (hosp to hosp transfer) due to insurance issues needing to initiate chemotherapy on 12/18. Other PMH includes HTN, hyperlipidemia, COPD (former smoker ). He is usually health per the , approximately 2 months prior to admission had been losing weight, 20-30 pounds. His creatinine was normal, less than one, until 01/02. It has steadily increased and is 4.31 today, BUN 151. He is being followed by hematology/oncology, cardiology, pulmonary, and nephrology. The [employer] that was seeing him before today recommended dialysis, however the family requested a second opinion. He is intubated today but agitated, on Precedex and low dose Levophed. Apparently he was extubated Sunday but was very weak and unable to clear secretions, therefore was reintubated 01/13. A PEG was placed at this hospital. He apparently aspirated 1L of tube feeding. He was on cefepime and Flagyl but the family has requested to stop antiboitic therapy and monitor his progress. He was given IV vancomycin and reportedly received IV contrast at the other facility. His urine output has dropped but is recorded at 750 ml in past 24 hrs. His weight is up 20 kg since admission. He is a full code. (Larissa Amin) Review of Systems ROS Limitations: Clinical Condition, Intubated (Larissa Amin) Past Family Social History Allergies: Coded Allergies: hydrocodone (Verified Adverse Reaction, Mild, 12/22/17) Hallucinations Past Medical History Stage IIIB anaplastic large cell lymphoma HTN Hyperlipidemia COPD Past Surgical History Port-A-Cath placed 12/20/2017 Back surgery [facility] [place] PEG Reported Medications is unable to provide a list of medications prior to admission Active Ordered Medications Current Medications Medications (Trade) Dose Ordered Sig/Candace Route Start Time Stop Time Status Last Admin (NS Flush) 2 ml UNSCH PRN IV FLUSH 12/22/17 18:15 (NS Flush) 2 ml BID IV FLUSH 12/22/17 21:00 01/15/18 09:00 (Zofran Inj) 4 mg Q6H PRN IVP 12/22/17 18:15 01/01/18 10:02 (Narcan Inj) 0.4 mg UNSCH PRN IV PUSH 12/22/17 18:15 (Milk Of Magnesia Liq) 30 ml Q12H PRN PO 12/22/17 18:15 (Lactulose Liq) 30 ml DAILY PRN PO 12/22/17 18:15 (Ambien) 5 mg HS PRN PO 12/22/17 20:15 12/26/17 20:30 (Megace Liq) 800 mg DAILY PO 12/23/17 09:00 01/15/18 09:39 (Symbicort 160-4.5 Mcg Inh) 1 puff Q12HR INH 12/22/17 21:00 01/07/18 09:00 (Lipitor) 80 mg DAILY PO 12/23/17 09:00 Future Hold 01/08/18 08:32 (Theragran) 1 tab DAILY PO 12/23/17 09:00 01/15/18 09:38 (Heparin Central Flush) 500 units UNSCH IV FLUSH 12/22/17 20:30 (NS Flush) 5 ml UNSCH PRN IVF 12/22/17 20:30 (Heparin Central Flush) 250 units UNSCH PRN IV FLUSH 12/22/17 20:30 12/27/17 20:27 (D50w (Vial) Inj) 50 ml UNSCH PRN IV PUSH 12/22/17 20:30 (Glucagon Inj) 1 mg UNSCH PRN OTHER 12/22/17 20:30 (Robitussin Dm 200-20 Mg/10 ml Liq) 10 ml Q4H PRN PO 12/22/17 21:00 12/26/17 18:27 (Tessalon) 100 mg TID PRN PO 12/25/17 12:00 (Benadryl) 25 mg Q4H PRN PO 12/31/17 16:30 (Tums Chew) 500 mg Q12HR PRN CHEW 12/31/17 16:15 01/01/18 05:27 (Deltasone) 10 mg BID PO 01/01/18 21:00 01/15/18 09:38 (Peridex 0.12% Liq) 15 ml BID@08,20 MT 01/01/18 20:00 01/15/18 08:00 (Brethine Inj) 1 mg UNSCH PRN SQ 01/01/18 17:00 (NovoLOG SUPPLEMENTAL SCALE) 1 Q6HR SQ 01/07/18 18:00 01/15/18 12:00 (Colace Liq) 100 mg Q12HR OG-TUBE 01/07/18 21:00 01/15/18 09:39 (NS Flush) 5 ml UNSCH PRN IV FLUSH 01/08/18 18:00 (Heparin Central Flush) 250 units UNSCH PRN IV FLUSH 01/08/18 18:00 (Heparin Central Flush) 500 units UNSCH IV FLUSH 01/08/18 18:00 (Tylenol 650 Mg/ 20 ml Liq) 650 mg Q6H PRN G-TUBE 01/09/18 10:00 (Prevacid Odt) 30 mg BID G-TUBE 01/09/18 21:00 01/15/18 09:38 (Albuterol Neb) 2.5 mg Q2HR NEB PRN NEB 01/09/18 10:00 (Tears Naturale Opth Soln) 1 drop Q8HR EACH EYE 01/09/18 14:00 01/15/18 12:59 (Heparin Inj) 5,000 units Q8HR SQ 01/09/18 14:00 01/15/18 13:01 (Aspirin Chew) 81 mg DAILY CHEW 01/10/18 11:00 01/15/18 09:38 Dexmedetomidine HCl 1000 mcg/ Sodium Chloride 250 ml @ 4.76 mls/hr TITRATE PRN IV 01/10/18 13:45 01/14/18 17:30 Sodium Chloride 1,000 ml @ 0 mls/hr Q0M PRN OTHER 01/11/18 11:53 (Heparin Inj) 8,000 units UNSCH PRN IV FLUSH 01/11/18 12:00 Sodium Chloride 1,000 ml @ 200 mls/hr Q5H PRN IV 01/11/18 11:53 Sodium Chloride 1,000 ml @ 0 mls/hr Q0M PRN OTHER 01/11/18 11:53 (Mannitol Inj) 12.5 gm UNSCH PRN IV 01/11/18 12:00 Albumin Human 100 ml @ 60 mls/hr UNSCH PRN IV 01/11/18 12:00 (NS Flush) 5 ml UNSCH PRN IV FLUSH 01/11/18 12:00 (Heparin Inj) UNSCH PRN .XX 01/11/18 12:00 (Gentamicin Inj) 20 mg UNSCH PRN OTHER 01/11/18 12:00 (Zofran Inj) 4 mg UNSCH PRN IV PUSH 01/11/18 12:00 (Tylenol) 650 mg UNSCH PRN PO 01/11/18 12:00 (Benadryl) 25 mg UNSCH PRN PO 01/11/18 12:00 (Nitrostat Sl) 0.4 mg UNSCH PRN SL 01/11/18 12:00 (Catapres) 0.1 mg UNSCH PRN PO 01/11/18 12:00 (Epogen Inj) 4,000 units UNSCH PRN IV PUSH 01/11/18 12:00 (Gelfoam 12 Mm/7 Mm Top) 1 foam UNSCH PRN TOP 01/11/18 12:00 (Peridex 0.12% Liq) 15 ml BID@08,20 MT 01/13/18 08:00 01/14/18 08:00 (Duoneb Neb) 1 ampule Q6HR WHILE AWAKE NEB NEB 01/13/18 14:00 01/15/18 16:05 (fentaNYL INJ) 25 mcg Q1HR PRN IV PUSH 01/14/18 17:00 01/15/18 04:30 Norepinephrine Bitartrate 4 mg/ Sodium Chloride 250 ml @ 7.5 mls/hr TITRATE PRN IV 01/14/18 18:45 01/14/18 18:45 (Reglan Inj) 5 mg Q8HR IV PUSH 01/15/18 15:00 (Senna Liq) 8.8 mg BID J-TUBE 01/15/18 21:00 (Free Water) VOLUME OF WATER: ( 300 ) ML Q6HR G-TUBE 01/15/18 18:00 Family History Non contributory Social History Former smoker He is Full code functionally independent prior to admission. (Larissa Amin) Physical Exam Vital Signs Vital Signs Date Time Temp Pulse Resp B/P (MAP) Pulse Ox O2 Delivery O2 Flow Rate FiO2 01/15/18 16:06 100 35 01/15/18 14:09 97 35 01/15/18 08:49 94 35 01/15/18 06:00 88 01/15/18 04:19 99 35 01/15/18 04:00 99 01/15/18 04:00 35 01/15/18 04:00 99.0 99 25 113/65 (81) 98 01/15/18 02:00 90 01/15/18 00:58 97 35 01/15/18 00:00 97.9 103 27 130/78 (95) 97 01/15/18 00:00 90 01/15/18 00:00 35 01/14/18 22:00 92 01/14/18 21:36 97 35 01/14/18 20:00 99 01/14/18 20:00 99.0 99 32 130/67 (88) 99 01/14/18 20:00 35 01/14/18 18:50 98.4 106 27 81/56 98 01/14/18 18:45 93 81/51 01/14/18 18:30 97.9 93 21 81/56 97 01/14/18 18:09 98.1 90 24 93/61 98 01/14/18 18:00 112 Physical Exam Elderly male Intubated, ETT, restless Lungs clear, decreased in bases S1/S2, RRR no murmurs Port right chest Abd soft, normal bowel sounds, + PEG Ext: 2-3+ edema, distal pulses strong Laboratory Laboratory Tests Test 01/15/18 05:00 White Blood Count 10.3 Red Blood Count 2.95 Hemoglobin 8.6 Hematocrit 25.3 Mean Corpuscular Volume 85.8 Mean Corpuscular Hemoglobin 29.0 Mean Corpuscular Hemoglobin Concent 33.8 Red Cell Distribution Width 17.8 Platelet Count 363 Mean Platelet Volume 9.3 Neutrophils (%) (Auto) 91.7 Lymphocytes (%) (Auto) 3.2 Monocytes (%) (Auto) 4.8 Eosinophils (%) (Auto) 0.0 Basophils (%) (Auto) 0.3 Neutrophils # (Auto) 9.4 Lymphocytes # (Auto) 0.3 Monocytes # (Auto) 0.5 Eosinophils # (Auto) 0.0 Basophils # (Auto) 0.0 CBC Comment AUTO DIFF Differential Comment AUTO DIFF CONFIRMED Blood Urea Nitrogen 120 Creatinine 4.31 Random Glucose 152 Calcium Level 8.0 Phosphorus Level 4.4 Magnesium Level 2.5 Sodium Level 151 Potassium Level 4.3 Chloride Level 118 Carbon Dioxide Level 20.4 Anion Gap 13 Estimat Glomerular Filtration Rate 14 Date/Time Source Procedure Growth Status 01/01/18 17:57 Blood Peripheral Aerobic Blood Culture - Final NO GROWTH IN 5 DAYS Complete 01/01/18 17:57 Blood Peripheral Anaerobic Blood Culture - Final NO GROWTH IN 5 DAYS Complete 12/28/17 12:15 Fluid Pleural Fluid Fungal Smear - Final NO FUNGAL ELEMENTS SEEN. Resulted 12/28/17 12:15 Fluid Pleural Fluid Fungal Culture - Preliminary NO GROWTH IN 2 WEEKS Resulted 01/01/18 17:15 Sputum Endotracheal Gram Stain - Final Complete 01/01/18 17:15 Sputum Endotracheal Sputum Culture - Final HEAVY GROWTH NORMAL RESPIRATORY LISA Complete 01/01/18 17:15 Urine Catheterized Urine Urine Culture - Final NO GROWTH IN 48 HOURS. Complete (Larissa Amin) Result Diagram: 01/15/18 0500 01/15/18 0500 Imaging Last Impressions Chest X-Ray 01/15/18 0600 Signed Impressions: Service Date/Time: Monday, January 15, 2018 04:54 - CONCLUSION: Stable aeration Andres Drew MD Gastrostomy Tube Change 01/08/18 0000 Signed Impressions: Service Date/Time: Monday, January 08, 2018 14:35 - CONCLUSION: Conversion of the patient's existing gastrostomy tube to a gastrojejunostomy tube. Siva Bean Jr., MD Renal Ultrasound 01/05/18 0000 Signed Impressions: Service Date/Time: Friday, January 05, 2018 08:00 - CONCLUSION: Echogenic kidneys suggesting medical renal disease. Some ascites. Bilateral pleural effusions. Lee Mijares MD Head CT 01/05/18 0000 Signed Impressions: Service Date/Time: Friday, January 05, 2018 11:41 - CONCLUSION: 1. No acute abnormality is seen. 2. Old lacunar infarct at the left basal ganglia. 3. Fluid in the mastoid air cells on the right. Andres Valero MD Small Bowel X-Ray 01/03/18 0000 Signed Impressions: Service Date/Time: December 14:27 - CONCLUSION: 1. No leakage identified on injection through gastrostomy tube. No small bowel obstruction or significant dilatation. Elbert Carrasquillo MD Abdomen/Pelvis CT 01/02/18 0000 Signed Impressions: Service Date/Time: Tuesday, January 02, 2018 21:38 - CONCLUSION: 1. Free intraperitoneal air of unknown etiology. On the supine view most of the free air is around the gastrostomy tube and tip of the nasogastric tube as discussed above. 2. Mild to moderate ascites. Moderate anasarca. 3. Moderate bilateral effusions with basilar atelectasis. 4. Nonobstructing right renal calculus. Hay catheter in bladder. Elbert Carrasquillo MD Chest CT 12/30/17 0000 Signed Impressions: Service Date/Time: Saturday, December 30, 2017 21:13 - CONCLUSION: 1. Free intraperitoneal air in the upper abdomen of uncertain etiology. There is a gastrostomy present. 2. Moderate bilateral pleural effusions with compressive atelectasis. Patchy air space consolidation in the right upper lobe. 3. Moderate anasarca and ascites. 4. Findings called to the floor at the time of dictation. Elbert Carrasquillo MD Chest Ultrasound 12/27/17 0000 Signed Impressions: Service Date/Time: December 21:39 - CONCLUSION: Large left pleural effusion and would be amenable to thoracentesis. Frandy was made on the overlying skin. Andres Parekh MD Bone Biopsy CT 12/25/17 1142 Signed Impressions: Service Date/Time: Monday, December 25, 2017 12:32 - CONCLUSION: 1. Uncomplicated CT guided bone marrow aspirate. 2. Uncomplicated CT guided bone marrow biopsy. Lee Mijares MD CT Angiography 12/25/17 0000 Signed Impressions: Service Date/Time: Monday, December 25, 2017 09:26 - CONCLUSION: 1. No CT evidence for pulmonary artery embolism. 2. Moderate to large bilateral pleural effusions with associated compressive atelectasis at the lung bases. 3. 8mm nodule in the right middle lobe. Followup CT examination may be performed at 6 months to document stability if this has not been evaluated previously. 4. Very mildly prominent mediastinal and hilar nodes and partially imaged upper abdominal lymphadenopathy in this patient with history of lymphoma. Miguel Ashton MD (Larissa Amin) Assessment and Plan Problem List: (1) Acute renal failure ICD Codes: N17.9 - Acute kidney failure, unspecified Status: Acute Plan: Normal renal function at baseline Renal failure is acute since 01/02 Etiologies include ATN from sepsis, hypotension. Allergic interstitial nephritis is also on the differential Tumor lysis syndrome is less likely given low uric acid He is fluid overloaded, however the reports lower extremity edema prior to hospitalization obtain Doppler bilateral lower ext to rule out DVT Needs fluid removal, give 500 mg Diuril and monitor response overnight, considering scheduled doses if he responds Monitor electrolytes daily Pressors as needed to maintain MAP > 65mmHG We did discuss the possibility of dialysis if his urine output declines or develops hyperkalemia, D/W and sister Tube feed is Nepro Avoid nephrotoxins Imaging negative for abnormalities. Minimize IVF administration. Obtain daily labs. (2) Hypernatremia ICD Codes: E87.0 - Hyperosmolality and hypernatremia Plan: Free water via PEG has been increased to 300 Q6h On thiazide diuretics Repeat labs (3) Anaplastic ALK-negative large cell lymphoma ICD Codes: C84.70 - Anaplastic large cell lymphoma, ALK-negative, unspecified site Plan: Oncology is following He had one chemo treatment, renal failure has put additional treatments on hold (4) Respiratory failure ICD Codes: J96.90 - Respiratory failure, unspecified, unspecified whether with hypoxia or hypercapnia Plan: reintubated 01/13 Pulmonary following on 35% FiO2, PEEP 10 Fluid removal to assist with vent weening. Family has discussed in depth with ID, they want to monitor him off antibiotics thinking that may be affecting his kidneys and increase risk of nosocomial infections. Off cefepime and Flagyl. (Larissa Amin) Assessment and Plan patient was seen and examined. Agree with above assessment and plan. I had a long discussion with patient's family. They want to attempt non dialytic therapies, but if renal function worsens, patient's is not averse to initiating dialysis. Discussed with Dr. Bran. Diuresis with Diuril. Free water administration. Prognosis is guarded. (Tan Christensen MD) Larissa Amin Jan 15, 2018 17:00 Tan Christensen MD Jan 15, 2018 18:27
[2018-01-15] MEDS: METOCLOPRAMIDE HCL 10 MG/2 ML VIAL IV PUSH SCH ×2 (17:07→20:31)
--- NOTE | 2018-01-15 19:00 | RADRPT ---
EXAM DATE/TIME: 01/15/2018 18:00 [facility] COMPARISON: No previous studies available for comparison. INDICATIONS : Bilateral leg swelling. MEDICAL HISTORY : Hypertension. Stroke. Lymphoma. Chronic obstructive pulmonary disease. Hypercholesterolemia. SURGICAL HISTORY : Port placement. Back surgery. ENCOUNTER: Initial ACUITY: 1 day PAIN SCORE: Non-responsive LOCATION: Bilateral legs. TECHNIQUE: Venous ultrasound of the left and right leg was performed from the inguinal ligament to the proximal calf. Real-time, color Doppler and spectral tracing, compression and augmentation techniques were us ed. FINDINGS: RIGHT LEG: There is normal compressibility of the deep venous system from the inguinal region to the proximal ca lf. No echogenic clot is seen in the lumen of the common femoral, femoral, popliteal, and posterior tibial veins. There is a normal response of the venous system to proximal and distal augmentation an d respiration. LEFT LEG: There is normal compressibility of the deep venous system from the inguinal region to the proximal ca lf. No echogenic clot is seen in the lumen of the common femoral, femoral, popliteal, and posterior tibial veins. There is a normal response of the venous system to proximal and distal augmentation an d respiration. CONCLUSION: Normal examination. Elbert Carrasquillo MD on January 15, 2018 at 18:57 Board Certified Radiologist. This report was verified electronically.
[2018-01-15] MEDS: DEXMEDETOMIDINE INJ 1,000 MCG in SODIUM CHLOR 0.9% 250 ML INJ 240 ML IV PRN (20:29)
[2018-01-15] MEDS: SENNOSIDES SYRUP 8.8 MG/5 ML CUP J-TUBE SCH (20:30)
[2018-01-15] MEDS: ZOLPIDEM TARTRATE 5 MG TAB PO PRN (20:30)
--- NOTE | 2018-01-15 22:19 | HHI.CCPN ---
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 On 12/25 patient received chemotherapy -CHOP regimen. Hospitalization further significant for PEG placement due to malnutrition and lack of appetite and thoracentesis for pleural effusion. Patient was being followed by pulmonary, cardiology and hematology services. Over the night patient had increased O2 requirements with high tube feed residual and concern for aspiration. A rapid response was called earlier this afternoon for worsening hypoxia despite NRM. Patient was emergently intubated and upon intubation he was found to have significant amount of tube feeds in the airway. An NG tube was placed on suction with 750 cc suctioned from the stomach. Patient was started on midazolam and fentanyl drips and phenylephrine for BP support. Patient was seen immediately on ICU arrival, 100% O2 with SPO2 100%. Patient requires 20 mics per minute of phenylephrine infusion. He is intubated and sedated, unresponsive. 01/02: No events over the night. Patient remains critically ill. He is currently sedated and intubated. He remains on phenylephrine at 80 mics per minute. FiO2 down to 0.6. T-max 98.6, I/O 1550/400. 01/03: Patient did well over the night. Norepinephrine weaned off. FiO2 currently at 0.5. Patient remains on a PEEP of 10. Sedation accomplished with propofol and fentanyl. Tmax 98.4. 01/04: Multiple episodes of diarrhea overnight. No C. difficile sent. Urine output decreased, 300 mL's over last 12 hours. Patient does not require any pressors, sedation is maintained with propofol at 30 and fentanyl at 150. During sedation vacation patient moves all extremities, agitated, but does not follow commands. Currently he is sedated and intubated. Morning chest x-ray reviewed, slight improvement in bibasilar infiltrates. 01/05: No events over the night. T-max of 98.6. Urine output 550 mL's over the last 24 hours. Ventilator on 0.4 FiO2. Sedation was stopped this morning, patient agitated moving all extremities but not following commands. Morning chest x-ray reviewed, no significant change compared to yesterday's, ET tube approximately 7 cm above clem. 01/06: Patient remains afebrile, on no pressors. Oxygenation down to 0.4 FiO2, but PEEP remains at 10. Trickle feeds started yesterday, still having residuals. Patient remains on low-dose propofol and fentanyl for sedation. Morning chest x-ray reviewed, still with bibasilar opacities, unchanged. 01/07: Remains sedated, orally intubated on mechanical ventilation. Fentanyl at 150 mics per minute decreased to 50 mics per minute. Abdomen remains distended. Tolerating tube feeds at 20 cc/h with residual 60 cc. 01/08: Sedated, orally intubated on mechanical ventilation. Had large amount of BM last night following Relistor. On tube feeds at 20 cc per hour. 01/09: Currently on propofol drip at 40 mcg/kg/min. Afebrile. GJ tube per IR yesterday. Tube feeds were restarted. at bedside. Continue to diuresis furosemide/albumin 01/10: Currently off all sedation. Transitioning to dexmedetomidine drip. Tolerating tube feeds via GJ tube. Positive BM. Creatinine up to 3.1. Blinks eyes to commands but not moving extremities. Withdraws to pain. 01/11: Afebrile. Long discussion with . Nephrology wishes to initiate hemodialysis today. Benefits and risks discussed. She wishes to wait another day to see if he has any significant recovery. Nephrology will give extra furosemide today. 01/12: More awake today. Follows commands. Eyes are open. Moves all 4 extremities spontaneously. does not wish to pursue hemodialysis today. Requesting decreasing furosemide drip to 2.5 mg/h due to "elevated BUN". 01/13: Intubated this a.m. due to acute hypoxic hypercapnic respiratory failure/ actively aspirating. Follow-up chest x-ray and ABG pending. Discussed with at bedside. A.m. laboratories all pending 01/14: Resting in bed in no acute distress. Long discussion with regarding worsening pleural effusions and need for hemodialysis. She will discuss with her family friend and Dr. Blevins. Subjective 01/15: Afebrile. Currently resting in bed in no acute distress. Long discussion with . Currently wishes to's second opinion for nephrology. We will performed today. Objective Vital Signs Date Time Temp Pulse Resp B/P (MAP) Pulse Ox O2 Delivery O2 Flow Rate FiO2 01/15/18 20:49 97 35 01/15/18 18:00 104 01/15/18 16:00 98.0 20 124/68 (86) 01/13/18 08:26 Ventilator 01/13/18 06:57 15.00 Intake and Output 01/15/18 01/15/18 01/15/18 07:59 15:59 23:59 Intake Total 2383 ml 1125 ml Output Total 500 ml 750 ml Balance 1883 ml 375 ml Result Diagram: 01/15/18 0500 01/15/18 0500 Other Results Microbiology Date/Time Source Procedure Growth Status 01/01/18 17:57 Blood Peripheral Aerobic Blood Culture - Final NO GROWTH IN 5 DAYS Complete 01/01/18 17:57 Blood Peripheral Anaerobic Blood Culture - Final NO GROWTH IN 5 DAYS Complete 12/28/17 12:15 Fluid Pleural Fluid Fungal Smear - Final NO FUNGAL ELEMENTS SEEN. Resulted 12/28/17 12:15 Fluid Pleural Fluid Fungal Culture - Preliminary NO GROWTH IN 2 WEEKS Resulted 01/01/18 17:15 Sputum Endotracheal Gram Stain - Final Complete 01/01/18 17:15 Sputum Endotracheal Sputum Culture - Final HEAVY GROWTH NORMAL RESPIRATORY LISA Complete 01/01/18 17:15 Urine Catheterized Urine Urine Culture - Final NO GROWTH IN 48 HOURS. Complete Imaging Last Impressions Chest X-Ray 01/15/18 0600 Signed Impressions: Service Date/Time: Monday, January 15, 2018 04:54 - CONCLUSION: Stable aeration Andres Drew MD Lower Extremity Ultrasound 01/15/18 0000 Signed Impressions: Service Date/Time: Monday, January 15, 2018 18:00 - CONCLUSION: Normal examination. Elbert Carrasquillo MD Abdomen X-Ray 01/15/18 0000 Signed Impressions: Service Date/Time: Monday, January 15, 2018 15:06 - CONCLUSION: Nonspecific, nonobstructive bowel gas pattern. PEG tube present. Andres Parekh MD Gastrostomy Tube Change 01/08/18 0000 Signed Impressions: Service Date/Time: Monday, January 08, 2018 14:35 - CONCLUSION: Conversion of the patient's existing gastrostomy tube to a gastrojejunostomy tube. Siva Bean Jr., MD Renal Ultrasound 01/05/18 0000 Signed Impressions: Service Date/Time: Friday, January 05, 2018 08:00 - CONCLUSION: Echogenic kidneys suggesting medical renal disease. Some ascites. Bilateral pleural effusions. Lee Mijares MD Head CT 01/05/18 0000 Signed Impressions: Service Date/Time: Friday, January 05, 2018 11:41 - CONCLUSION: 1. No acute abnormality is seen. 2. Old lacunar infarct at the left basal ganglia. 3. Fluid in the mastoid air cells on the right. Andres Valero MD Small Bowel X-Ray 01/03/18 0000 Signed Impressions: Service Date/Time: December 14:27 - CONCLUSION: 1. No leakage identified on injection through gastrostomy tube. No small bowel obstruction or significant dilatation. Elbert Carrasquillo MD Abdomen/Pelvis CT 01/02/18 0000 Signed Impressions: Service Date/Time: Tuesday, January 02, 2018 21:38 - CONCLUSION: 1. Free intraperitoneal air of unknown etiology. On the supine view most of the free air is around the gastrostomy tube and tip of the nasogastric tube as discussed above. 2. Mild to moderate ascites. Moderate anasarca. 3. Moderate bilateral effusions with basilar atelectasis. 4. Nonobstructing right renal calculus. Hay catheter in bladder. Elbert Carrasquillo MD Chest CT 12/30/17 0000 Signed Impressions: Service Date/Time: Saturday, December 30, 2017 21:13 - CONCLUSION: 1. Free intraperitoneal air in the upper abdomen of uncertain etiology. There is a gastrostomy present. 2. Moderate bilateral pleural effusions with compressive atelectasis. Patchy air space consolidation in the right upper lobe. 3. Moderate anasarca and ascites. 4. Findings called to the floor at the time of dictation. Elbert Carrasquillo MD Chest Ultrasound 12/27/17 0000 Signed Impressions: Service Date/Time: December 21:39 - CONCLUSION: Large left pleural effusion and would be amenable to thoracentesis. Frandy was made on the overlying skin. Andres Parekh MD Bone Biopsy CT 12/25/17 1142 Signed Impressions: Service Date/Time: Monday, December 25, 2017 12:32 - CONCLUSION: 1. Uncomplicated CT guided bone marrow aspirate. 2. Uncomplicated CT guided bone marrow biopsy. Lee Mijares MD CT Angiography 12/25/17 0000 Signed Impressions: Service Date/Time: Monday, December 25, 2017 09:26 - CONCLUSION: 1. No CT evidence for pulmonary artery embolism. 2. Moderate to large bilateral pleural effusions with associated compressive atelectasis at the lung bases. 3. 8mm nodule in the right middle lobe. Followup CT examination may be performed at 6 months to document stability if this has not been evaluated previously. 4. Very mildly prominent mediastinal and hilar nodes and partially imaged upper abdominal lymphadenopathy in this patient with history of lymphoma. Miguel Ashton MD Objective Remarks General -72-year-old male currently orotracheally intubated HEENT - pupils are equal, reactive about 3 mm bilaterally, sclerae are anicteric , neck is supple, no rigidity, minimal JVD. Bowels ET tube CV -RRR with ectopy. S1, S2 no S4. Without murmur Chest -coarse rhonchorous breath sounds bilaterally, no wheezes, good air entry , [id number] right chest -site remains clean Abdomen - soft, obese, protuberant. + GJ tube. Hypoactive bowel sounds are appreciated Extremities - 2+ edema, + peripheral pulses, warm, no cyanosis Neuro - intubated, pupils equal and reactive, grimaces to pain all simple commands. Moves head side to side. Urinary Catheter: No Assessment to: Continue Vascular Central Line Catheter: No Assessment to: Continue Date of Insertion: Jan 01, 2018 Date of Removal: Jan 12, 2018 A/P Assessment and Plan Neuro/Psych: History of left basal ganglia CVA without residual Bilateral lower extremity neuropathy Currently on dexmedetomidine drip at 1.1 mcg/kg/min for sedation while intubated Goal of RASS -2 - [address] brain 01/05 revealed old left basal CVA. Discussed with MRI brain. Rule out pontine CVA. She desires to wait additional day or 2 for prior sedative medications to "washout". Benefits and risks discussed with . She wishes to proceed with careful monitoring the present time. CV: Hypertension Dyslipidemia 2D echocardiogram revealed EF 65-70%. Tricuspid regurgitation. PA P 38 mmHg He is on aspirin 81 mg p.o. daily Currently not requiring antihypertensives and/or vasopressors Resp: Acute hypoxic hypercapnic respiratory failure secondary to aspiration pneumonia Right middle lobe pulmonary nodule 8 mm recommend 6 month follow-up CT chest COPD PRVC 16/500/1/5/40 PSV 15/5 at 40% later this afternoon if tolerated Ventilator bundle Patient written for budesonide/formoterol 160/4.5 2 puffs twice daily. Albuterol/ipratropium aerosols every 6 hours with albuterol aerosols every 2 hours as needed dyspnea On prednisone [address] Blevins/pulmonology is following GI: Status post GJ conversion by IR 01/08 Hypoalbuminemia Lansoprazole 30 mg twice daily for GI prophylaxis Docusate sodium liquid 100 mg twice daily for bowel regimen On Megestrol 800 mg daily for anorexia Nutrition recommends vital 1.5 goal 60 cc an hour.. On Nepro at 50 cc an hour due to renal failure : Hay catheter for accurate I's and O's in a critically ill patient Endo: Sliding scale insulin to maintain euglycemia/low regimen every 6 hours TSH is 1.18 Renal: Acute kidney injury likely secondary to sepsis/ATN Right-sided nephrolithiasis Urine eosinophils negative. Renal ultrasound reveals medical renal disease and prior CT abdomen/pelvis revealed non-obstructing right renal stones. Followed by nephrology Avoid nephrotoxic medication Off furosemide drip. Currently in free water 300 cc every 6 and chlorothiazide 500 mg IV 1. 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 Followed by hematology. Restart chemotherapy when clinically stable No indication for transfusion of blood products at this time ID: Day #8 cefepime 2 g IV every 12 hours. Discontinued 01/15 meropenem discontinued 01/08 Discontinue metronidazole 500 mg 3 times daily Followed by infectious disease for prescribing medication FEN: Hypernatremia Free water 300 cc every 6 hours Replace electrolytes as clinically indicated MSK: Sacral decubitus ulcer Wound care management Access Left IJ CVL placed 01/01 - 01/10 Right [id number] placed 12/20/17 Prophylaxis -GI -lansoprazole -DVT -SCD/heparin subcu Level 3 follow-up. Discussed with . Care plan discussed and all questions answered Pascual Bran MD Jan 15, 2018 22:19
[2018-01-16] VITALS (17 sets, daily range): BP systolic 126–144; BP diastolic 69–90; PULSE 66–132; RESP 12–22; TEMP 97.8–98.7; O2SAT 94–100
[2018-01-16] MEDS: INSULIN ASPART SUPPLEMENTAL SCALE SQ SCH ×4 (00:48→18:00)
[2018-01-16] MEDS: NOREPINEPHRINE INJ 4 MG in SODIUM CHLOR 0.9% 250 ML INJ 246 ML IV PRN (01:06)
[2018-01-16] MEDS: PROPOFOL 1000 MG/100 ML IV PRN ×5 (01:08→20:38)
[2018-01-16] MEDS: HEPARIN SODIUM - SQ 10,000 UNITS/ML VIAL SQ SCH ×3 (05:58→23:25)
[2018-01-16] MEDS: METOCLOPRAMIDE HCL 10 MG/2 ML VIAL IV PUSH SCH ×3 (05:58→20:46)
[2018-01-16] MEDS: FREE WATER G-TUBE SCH ×3 (05:59→18:00)
[2018-01-16] MEDS: ARTIFICIAL TEARS OPTH SOLN 15 ML BTL EACH EYE SCH ×3 (05:59→20:46)
[2018-01-16 06:09] LABS: AUTOMATED NEUTROPHIL # 12.9 TH/MM3 (1.8-7.7); BASOPHIL % 0.3 % (0.0-2.0); HEMATOCRIT 25.4 % (39.0-51.0); HEMOGLOBIN 8.5 GM/DL (13.0-17.0); LYMPH % 2.3 % (9.0-44.0); LYMPHOCYTE # 0.3 TH/MM3 (1.0-4.8); MEAN CELL VOLUME 86.3 FL (80.0-100.0); MEAN CORPUSCULAR HGB CONC 33.6 % (32.0-36.0); MEAN PLATELET VOLUME 9.6 FL (7.0-11.0); MONO % 3.9 % (0.0-8.0); MONOCYTE # 0.5 TH/MM3 (0-0.9); NEUT % 93.5 % (16.0-70.0); PLATELET COUNT 381 TH/MM3 (150-450); RED BLOOD COUNT 2.94 MIL/MM3 (4.50-5.90); RED CELL DISTRIBUTION WIDTH 18.6 % (11.6-17.2); WHITE BLOOD COUNT 13.8 TH/MM3 (4.0-11.0)
--- NOTE | 2018-01-16 06:15 | RADRPT ---
EXAM DATE/TIME: 01/16/2018 04:51 [facility] COMPARISON: CHEST SINGLE AP, January 15, 2018, 4:54. INDICATIONS : Shortness of breath. MEDICAL HISTORY : Hypercholesterolemia. Hypertension. Stroke. Lymphoma. Chronic obstructive pulmonary disease SURGICAL HISTORY : Port placement. Back surgery ENCOUNTER: Subsequent ACUITY: 3 weeks PAIN SCORE: Non-responsive. LOCATION: Bilateral chest FINDINGS: Endotracheal tube is stable. Right chest port is accessed. Diffuse bilateral pleural-parenchymal opac ity is grossly unchanged. Cardiac contours are stable. CONCLUSION: No significant change Andres Drew MD on January 16, 2018 at 6:12 Board Certified Radiologist. This report was verified electronically.
[2018-01-16 06:31] LABS: ALBUMIN 1.6 GM/DL (3.4-5.0); BICARBONATE 19.6 MEQ/L (21.0-32.0); CREATININE 4.62 MG/DL (0.60-1.30); MAGNESIUM 2.7 MG/DL (1.5-2.5); PHOSPHORUS 4.7 MG/DL (2.5-4.9)
[2018-01-16] MEDS: CHLORHEXIDINE 0.12% (ORAL KIT) 15 ML CUP MT SCH ×4 (08:00→20:00)
[2018-01-16 08:09] LABS: BANDS 7 % (0-6); LYMPHOCYTES 6 % (9-44); MONOCYTES 3 % (0-8); NEUTROPHIL # MANUAL DIFF 12.6 TH/MM3 (1.8-7.7); POLYS (SEG NEUTROPHILS) 84 % (16-70)
[2018-01-16] MEDS: RESP: ALBUTEROL 2.5 MG/IPRATROPIUM 0.5 MG NEB (SCH) NEB ×3 (08:14→20:51)
--- NOTE | 2018-01-16 08:20 | HHI.CCPN ---
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 On 12/25 patient received chemotherapy -CHOP regimen. Hospitalization further significant for PEG placement due to malnutrition and lack of appetite and thoracentesis for pleural effusion. Patient was being followed by pulmonary, cardiology and hematology services. Over the night patient had increased O2 requirements with high tube feed residual and concern for aspiration. A rapid response was called earlier this afternoon for worsening hypoxia despite NRM. Patient was emergently intubated and upon intubation he was found to have significant amount of tube feeds in the airway. An NG tube was placed on suction with 750 cc suctioned from the stomach. Patient was started on midazolam and fentanyl drips and phenylephrine for BP support. Patient was seen immediately on ICU arrival, 100% O2 with SPO2 100%. Patient requires 20 mics per minute of phenylephrine infusion. He is intubated and sedated, unresponsive. 01/02: No events over the night. Patient remains critically ill. He is currently sedated and intubated. He remains on phenylephrine at 80 mics per minute. FiO2 down to 0.6. T-max 98.6, I/O 1550/400. 01/03: Patient did well over the night. Norepinephrine weaned off. FiO2 currently at 0.5. Patient remains on a PEEP of 10. Sedation accomplished with propofol and fentanyl. Tmax 98.4. 01/04: Multiple episodes of diarrhea overnight. No C. difficile sent. Urine output decreased, 300 mL's over last 12 hours. Patient does not require any pressors, sedation is maintained with propofol at 30 and fentanyl at 150. During sedation vacation patient moves all extremities, agitated, but does not follow commands. Currently he is sedated and intubated. Morning chest x-ray reviewed, slight improvement in bibasilar infiltrates. 01/05: No events over the night. T-max of 98.6. Urine output 550 mL's over the last 24 hours. Ventilator on 0.4 FiO2. Sedation was stopped this morning, patient agitated moving all extremities but not following commands. Morning chest x-ray reviewed, no significant change compared to yesterday's, ET tube approximately 7 cm above clem. 01/06: Patient remains afebrile, on no pressors. Oxygenation down to 0.4 FiO2, but PEEP remains at 10. Trickle feeds started yesterday, still having residuals. Patient remains on low-dose propofol and fentanyl for sedation. Morning chest x-ray reviewed, still with bibasilar opacities, unchanged. 01/07: Remains sedated, orally intubated on mechanical ventilation. Fentanyl at 150 mics per minute decreased to 50 mics per minute. Abdomen remains distended. Tolerating tube feeds at 20 cc/h with residual 60 cc. 01/08: Sedated, orally intubated on mechanical ventilation. Had large amount of BM last night following Relistor. On tube feeds at 20 cc per hour. 01/09: Currently on propofol drip at 40 mcg/kg/min. Afebrile. GJ tube per IR yesterday. Tube feeds were restarted. at bedside. Continue to diuresis furosemide/albumin 01/10: Currently off all sedation. Transitioning to dexmedetomidine drip. Tolerating tube feeds via GJ tube. Positive BM. Creatinine up to 3.1. Blinks eyes to commands but not moving extremities. Withdraws to pain. 01/11: Afebrile. Long discussion with . Nephrology wishes to initiate hemodialysis today. Benefits and risks discussed. She wishes to wait another day to see if he has any significant recovery. Nephrology will give extra furosemide today. 01/12: More awake today. Follows commands. Eyes are open. Moves all 4 extremities spontaneously. does not wish to pursue hemodialysis today. Requesting decreasing furosemide drip to 2.5 mg/h due to "elevated BUN". 01/13: Intubated this a.m. due to acute hypoxic hypercapnic respiratory failure/ actively aspirating. Follow-up chest x-ray and ABG pending. Discussed with at bedside. A.m. laboratories all pending 01/14: Resting in bed in no acute distress. Long discussion with regarding worsening pleural effusions and need for hemodialysis. She will discuss with her family friend and Dr. Blevins. 01/15: Afebrile. Currently resting in bed in no acute distress. Long discussion with . Currently wishes to's second opinion for nephrology. We will performed today. Subjective 01/16: afebrile. failed trial of Precedex for agitation. now back on propofol. I started discussions about trach today: failed extubation and now 20kg up- will not successfully wean with current deconditioning, volume overload, renal failure, and likely large component of uremic encephalopathy. overall worsening renal function persists. Objective Vital Signs Date Time Temp Pulse Resp B/P (MAP) Pulse Ox O2 Delivery O2 Flow Rate FiO2 01/16/18 06:00 89 01/16/18 04:20 16 01/16/18 04:11 94 30 01/16/18 04:00 98.7 129/90 (103) 01/13/18 08:26 Ventilator 01/13/18 06:57 15.00 Intake and Output 01/16/18 01/16/18 01/17/18 08:00 16:00 00:00 Output Total 650 ml Balance -650 ml Result Diagram: 01/16/18 0545 01/16/18 0545 Imaging Last Impressions Chest X-Ray 01/15/18 0600 Signed Impressions: Service Date/Time: Monday, January 15, 2018 04:54 - CONCLUSION: Stable aeration Andres Drew MD Lower Extremity Ultrasound 01/15/18 0000 Signed Impressions: Service Date/Time: Monday, January 15, 2018 18:00 - CONCLUSION: Normal examination. Elbert Carrasquillo MD Abdomen X-Ray 01/15/18 0000 Signed Impressions: Service Date/Time: Monday, January 15, 2018 15:06 - CONCLUSION: Nonspecific, nonobstructive bowel gas pattern. PEG tube present. Andres Parekh MD Gastrostomy Tube Change 01/08/18 0000 Signed Impressions: Service Date/Time: Monday, January 08, 2018 14:35 - CONCLUSION: Conversion of the patient's existing gastrostomy tube to a gastrojejunostomy tube. Siva Bean Jr., MD Renal Ultrasound 01/05/18 0000 Signed Impressions: Service Date/Time: Friday, January 05, 2018 08:00 - CONCLUSION: Echogenic kidneys suggesting medical renal disease. Some ascites. Bilateral pleural effusions. Lee Mijares MD Head CT 01/05/18 0000 Signed Impressions: Service Date/Time: Friday, January 05, 2018 11:41 - CONCLUSION: 1. No acute abnormality is seen. 2. Old lacunar infarct at the left basal ganglia. 3. Fluid in the mastoid air cells on the right. Andres Valero MD Small Bowel X-Ray 01/03/18 0000 Signed Impressions: Service Date/Time: December 14:27 - CONCLUSION: 1. No leakage identified on injection through gastrostomy tube. No small bowel obstruction or significant dilatation. Elbert Carrasquillo MD Abdomen/Pelvis CT 01/02/18 0000 Signed Impressions: Service Date/Time: Tuesday, January 02, 2018 21:38 - CONCLUSION: 1. Free intraperitoneal air of unknown etiology. On the supine view most of the free air is around the gastrostomy tube and tip of the nasogastric tube as discussed above. 2. Mild to moderate ascites. Moderate anasarca. 3. Moderate bilateral effusions with basilar atelectasis. 4. Nonobstructing right renal calculus. Hay catheter in bladder. Elbert Carrasquillo MD Chest CT 12/30/17 0000 Signed Impressions: Service Date/Time: Saturday, December 30, 2017 21:13 - CONCLUSION: 1. Free intraperitoneal air in the upper abdomen of uncertain etiology. There is a gastrostomy present. 2. Moderate bilateral pleural effusions with compressive atelectasis. Patchy air space consolidation in the right upper lobe. 3. Moderate anasarca and ascites. 4. Findings called to the floor at the time of dictation. Elbert Carrasquillo MD Chest Ultrasound 12/27/17 0000 Signed Impressions: Service Date/Time: December 21:39 - CONCLUSION: Large left pleural effusion and would be amenable to thoracentesis. Frandy was made on the overlying skin. Andres Parekh MD Bone Biopsy CT 12/25/17 1142 Signed Impressions: Service Date/Time: Monday, December 25, 2017 12:32 - CONCLUSION: 1. Uncomplicated CT guided bone marrow aspirate. 2. Uncomplicated CT guided bone marrow biopsy. Lee Mijares MD CT Angiography 12/25/17 0000 Signed Impressions: Service Date/Time: Monday, December 25, 2017 09:26 - CONCLUSION: 1. No CT evidence for pulmonary artery embolism. 2. Moderate to large bilateral pleural effusions with associated compressive atelectasis at the lung bases. 3. 8mm nodule in the right middle lobe. Followup CT examination may be performed at 6 months to document stability if this has not been evaluated previously. 4. Very mildly prominent mediastinal and hilar nodes and partially imaged upper abdominal lymphadenopathy in this patient with history of lymphoma. Miguel Ashton MD Objective Remarks General -72-year-old male currently orotracheally intubated HEENT - pupils are equal, reactive about 3 mm bilaterally, sclerae are anicteric , neck is supple, no rigidity CV -RRR with ectopy. sinus. Chest -coarse rhonchorous breath sounds bilaterally, [id number] right chest - site remains clean Abdomen - soft, obese, protuberant. + GJ tube. Extremities - 4+ edema, anasarca, + peripheral pulses, warm, no cyanosis Neuro - intubated, pupils equal and reactive, grimaces to pain all simple commands. Moves head side to side. Date of Insertion: Jan 01, 2018 Date of Removal: Jan 12, 2018 A/P Assessment and Plan Assessment: 72yM with new diagnosis of lymphoma, course complicated by recurrent hypoxic respiratory failure, severe volume overload, acute kidney injury, multiorgan failure, shock, and severe acute protein calorie malnutrition. prognosis at this point is poor. I do not think he will survive this illness. Family continues to press for aggressive measures and FULL CODE status. next step in aggressive management is tracheostomy. Nephrology to decide on IHD, though it will likely not change overall prognosis. remains very critically ill and off pathway. on vasopressors, mechanical ventilation. if we withdraw support, he would . I have had long discussion with family and they are agreeable to trach. will need to get palliative care on board, as ultimately his condition is terminal and will need to start introducing end-of- life conversations. 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 still agitated Goal of RASS -2 - [address] brain 01/05 revealed old left basal CVA. hold on MRI. likely uremic encephalopathy will start zyprexa 10mg po q8h to help with agitation. wean propofol as tolerated. CV: Hypertension Dyslipidemia 2D echocardiogram revealed EF 65-70%. Tricuspid regurgitation. PA P 38 mmHg He is on aspirin 81 mg p.o. daily back on levophed. will add midodrine in an effort to minimize highly potent iv vasopressors. Resp: Acute hypoxic hypercapnic respiratory failure secondary to aspiration pneumonia Right middle lobe pulmonary nodule 8 mm recommend 6 month follow-up CT chest COPD PRVC, full support. 35% fio2. daily SBT. Ventilator bundle Patient written for budesonide/formoterol 160/4.5 2 puffs twice daily. Albuterol/ipratropium aerosols every 6 hours with albuterol aerosols every 2 hours as needed dyspnea On prednisone [address] Blevins/pulmonology is following will consult gen surgery for trach. unable to wean from mechanical ventilation with multiple medical comorbidities including acute renal failure, deconditioning, failure to thrive, and lymphoma. GI: Status post GJ conversion by IR 01/08 Hypoalbuminemia Acute protein calorie malnutrition - severe. Lansoprazole 30 mg twice daily for GI prophylaxis Docusate sodium liquid 100 mg twice daily for bowel regimen On Megestrol 800 mg daily for anorexia Nutrition recommends vital 1.5 goal 60 cc an hour.. On Nepro at 50 cc an hour due to renal failure check prealbumin today and qweek. : Hay catheter for accurate I's and O's in a critically ill patient: keep. needing accurate i/o's in acute oliguric renal failure. Endo: Sliding scale insulin to maintain euglycemia/low regimen every 6 hours TSH is 1.18 Renal: Acute kidney injury likely secondary to sepsis/ATN Right-sided nephrolithiasis Urine eosinophils negative. Renal ultrasound reveals medical renal disease and prior CT abdomen/pelvis revealed non-obstructing right renal stones. Followed by nephrology Avoid nephrotoxic medication Off furosemide drip. Currently in free water 300 cc every 6 and chlorothiazide 500 mg IV 1. Nephrology to guide renal therapies. 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 Followed by hematology. currently not stable enough for chemotherapy. would be a candidate if he ever stabilized, but I do not see this as a functional reality. unlikely to tolerate future chemotherapies. No indication for transfusion of blood products at this time ID: Followed by infectious disease for prescribing medication FEN: Hypernatremia Free water 300 cc every 6 hours Replace electrolytes as clinically indicated MSK: Sacral decubitus ulcer Wound care management Access Left IJ CVL placed 01/01 - 01/10 Right [id number]-[id number] placed 12/20/17 Prophylaxis -GI -lansoprazole -DVT -SCD/heparin subcu Critical care time: 49 minutes, exclusive of separately billable procedures. Edi Hill MD Jan 16, 2018 08:20
[2018-01-16] MEDS: ASPIRIN 81 MG CHEW TAB CHEW SCH (08:32)
[2018-01-16] MEDS: LANSOPRAZOLE SOLUTAB 30 MG TAB G-TUBE SCH ×2 (08:32→20:45)
[2018-01-16] MEDS: MULTIVITAMIN TAB PO SCH (08:32)
[2018-01-16] MEDS: BUDESONIDE-FORMOTEROL 160/4.5 MCG INHALER INH SCH ×2 (08:32→20:46)
[2018-01-16] MEDS: DOCUSATE SODIUM 100 MG/10 ML UDC OG-TUBE SCH ×2 (08:32→20:45)
[2018-01-16] MEDS: MEGESTROL ACETATE SUSP 400 MG/10 ML CUP PO SCH (08:32)
[2018-01-16] MEDS: SODIUM CHLORIDE 0.9% FLUSH 10 ML FLUSH IV FLUSH SCH ×2 (08:32→20:46)
[2018-01-16] MEDS: predniSONE 10 MG TAB PO SCH ×2 (08:32→20:45)
[2018-01-16] MEDS: SENNOSIDES SYRUP 8.8 MG/5 ML CUP J-TUBE SCH ×2 (08:39→20:45)
[2018-01-16] MEDS: MIDODRINE 5 MG TAB PO SCH ×2 (08:40→18:16)
[2018-01-16] MEDS: OLANZapine 10 MG TAB PO SCH ×2 (10:31→18:16)
--- NOTE | 2018-01-16 10:39 | HHI.NPPN ---
Subjective Renal Failure: Acute Interval History He is agitated on the vent. Sedation changed to propofol. Renal function is worse. Marginal urine output with addition of Diuril. (Larissa Amin) Review of Systems General General Remarks unable to obtain (Larissa Amin) Objective Data Data Vital Signs Date Time Temp Pulse Resp B/P (MAP) Pulse Ox O2 Delivery O2 Flow Rate FiO2 01/16/18 08:18 35 01/16/18 08:18 98 35 01/16/18 06:00 89 01/16/18 04:20 16 01/16/18 04:11 94 30 01/16/18 04:00 94 01/16/18 04:00 35 01/16/18 04:00 98.7 128 17 129/90 (103) 94 01/16/18 02:00 98 01/16/18 01:06 100 116/76 01/16/18 00:36 99 35 01/16/18 00:00 98.7 128 17 129/90 (103) 94 01/16/18 00:00 35 01/16/18 00:00 132 01/15/18 22:00 92 01/15/18 20:49 97 35 01/15/18 20:00 98.9 92 25 123/63 (83) 95 01/15/18 20:00 35 01/15/18 20:00 92 01/15/18 18:00 104 01/15/18 16:06 100 35 01/15/18 16:00 35 01/15/18 16:00 98.0 90 20 124/68 (86) 97 01/15/18 16:00 100 01/15/18 14:09 97 35 01/15/18 14:00 100 01/15/18 12:00 92 01/15/18 12:00 35 01/15/18 12:00 98.2 92 30 131/72 (91) 97 (Larissa Amin) -: 01/16/18 0545 01/16/18 0545 Imaging Last 72 hours Impressions Chest X-Ray 01/16/18 06 Signed Impressions: Service Date/Time: Tuesday, January 16, 2018 04:51 - CONCLUSION: No significant change Andres Drew MD Chest X-Ray 01/15/18599 Signed Impressions: Service Date/Time: Monday, January 15, 2018 04:54 - CONCLUSION: Stable aeration Andres Drew MD Lower Extremity Ultrasound 01/15/18 Signed Impressions: Service Date/Time: Monday, January 15, 2018 18:00 - CONCLUSION: Normal examination. Elbert Carrasquillo MD Abdomen X-Ray 01/15/18 Signed Impressions: Service Date/Time: Monday, January 15, 2018 15:06 - CONCLUSION: Nonspecific, nonobstructive bowel gas pattern. PEG tube present. Andres Parekh MD Chest X-Ray 01/14/18599 Signed Impressions: Service Date/Time: Sunday, January 14, 2018 04:41 - CONCLUSION: No significant change Andres Drew MD Tubes & Lines: Hay Drip Comment propofol, levophed (Larissa Amin B. SHADE CUTTER) Physical Exam General Appearance Remarks elderly, cachectic, agitated on vent (EloisaLarissa B. SHADE CUTTER) Neck Neck Exam: Neck Supple (EloisaLarissa B. SHADE CUTTER) Pulmonary Resp Exam: Breath Sounds Equal, Decreased Bases Resp Remarks vented, on 40% FiO2. (EloisaLarissa B. SHADE CUTTER) Cardiology CV Exam: Regular, Normal Sinus Rhythm (EloisaLarissa B. SHADE CUTTER) Gastrointestinal/Abdomen GI Exam: Soft, Non-Tender, Bowel Sounds Present (EloisaLarissa B. SHADE CUTTER) Musculoskeletal MS Exam: Unable to Ambulate (EloisaLarissa B. SHADE CUTTER) Integumentary Skin Exam: Warm, Dry (EloisaLarissa B. SHADE CUTTER) Extremeties Extremities Exam: Moderate Edema, Pitting Edema, Dependent Edema (EloisaLarissa B. SHADE CUTTER) Neurologic Neuro Exam: Unresponsive, Sedated (EloisaLarissa B. SHADE CUTTER) Assessment/Plan Discussed Condition With: Spouse Assessment Summary: CYNDI/Acute Renal Failure, Hypotension Electrolyte Assessment: Hypernatremia, Metabolic Acidosis Problem List: (1) Acute renal failure ICD Codes: N17.9 - Acute kidney failure, unspecified Status: Acute Plan: Normal renal function at baseline Renal failure is acute since 01/02 Etiologies include ATN from sepsis, hypotension. Allergic interstitial nephritis is also on the differential Tumor lysis syndrome is less likely given low uric acid Renal function is worse, BUN is very high He is fluid overloaded, however the reports lower extremity edema prior to hospitalization Negative DVT study On Levophed as needed to maintain MAP > 65mmHg; started on midodrine He is going to need to start renal replacement therapy. Discussed with the . Will need vascath placed. HD today, most likely tomorrow. Repeat labs daily. Monitor output. Avoid nephrotoxins. 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 Will need tracheostomy soon Family has discussed in depth with ID, they want to monitor him off antibiotics thinking that may be affecting his kidneys and increase risk of nosocomial infections. Off cefepime and Flagyl. Plan Prognosis is guarded to poor (Larissa Amin) Plan patient was seen and examined. Dialysis was initiated. Discussed with patient's . 3 liters removed in dialysis. (Tan Christensen MD) Larissa Amin Jan 16, 2018 10:39 Tan Christensen MD Jan 17, 2018 10:14
[2018-01-16] MEDS ORDERED: MISC INFORMATION OTHER ONE (11:00)
--- NOTE | 2018-01-16 11:35 | PD.CONS ---
Consult Service Palliative Care Consult Requested By Dr. Hill Primary Care Physician Chandler Hoyos MD Reason for Consultation a. To assist with evaluation and management of symptoms including: Dyspnea, agitation b. To assist medical decision maker(s) with: better understanding of current medical conditions; weighing benefits/burdens of medical treatment options; making medical treatment decisions. (Annalee Mahoney) HPI History of Present Illness This is a 72-year-old male with a history of hypertension, hyperlipidemia, COPD , previous CVA, peripheral neuropathy and newly diagnosed stage IIIb anaplastic large cell lymphoma who was transferred from [facility], where he was diagnosed, to [facility] for follow-up treatment secondary to insurance limitations. Patient was initially admitted to [facility] after presenting to the ER 12/13/2017 complaining of dyspnea and cough unrelieved by multiple courses of antibiotic therapy. He was diagnosed with pneumonia. Circumstantial findings included a lump on his left neck since August 2017 which was biopsied and showed anaplastic large cell lymphoma ALK negative. He was recommended by the [facility] oncologist to receive chemotherapy and undergo bone marrow aspiration as soon as possible however [place] [facility] [place]. Medical oncologist was consulted upon patient's admission. GI was consulted to evaluate for PEG tube placement due to loss of appetite and cachexia. He had presented to [facility] due to symptoms lasting the prior 2 months to include cough mixed with a greenish phlegm and dyspnea. He had seen his primary care for this and received antibiotics 3 separate times for suspected upper respiratory infection and subsequently underwent CT scan of the chest abdomen and pelvis as an outpatient showing diffuse lymphadenopathy on both sides of the diaphragm. He subsequently underwent a PET scan showing increased uptake in the lymph nodes involving the neck, chest and especially the mediastinal and hilar area, retroperitoneum and pelvic lymph nodes. During those evaluations the left neck mass was noted and he underwent biopsy and while awaiting the results of that his condition worsened and he presented to the [facility] ER. His complaints at that admission included inability to eat due to loss of appetite and significant weight loss. He denied any nausea or vomiting. [facility] records show left neck mass biopsy showed anaplastic large cell lymphoma alkaline negative. Prior recent labs show WBC 40.6, hemoglobin 9.9, hematocrit 31.7, platelets 482,000 with left shift noted, magnesium 2.4, phosphate 2.2, sodium 142, potassium 4.6, BUN 21, creatinine 0.75, calcium 8.9, ALT 49, AST 40, alk phos 112, T bili 0.3. Imaging records received from [facility] indicate abdomen pelvis CT displaying retroperitoneal lymphadenopathy. 12/19/17 chest x-ray showed right perihilar and lower lung zone with possible pneumonia and nuclear MUGA scan showed an ejection fraction of 60% . During his admission to [facility] he had developed nonsustained VT, however no ischemic workup was done. He was seen by Dr. Lambert in [facility] who initiated placement of an Infuse -a-Port on 12/20 and requested an echocardiogram showing a left ventricular EF of 55-70% and then recommended CHOP therapy which was initiated 12/25 with recommended outpatient follow-up in 3 weeks. As he remains intubated and sedated in acute renal failure, no follow-up therapy is scheduled at this time pending his recovery. Due to insurance inconsistency between [facility] and [facility], he was transferred to [facility] for further treatment. He was evaluated by medical oncologist who recommended bone marrow biopsy which was completed showing hypercellular bone marrow with myeloid hyperplasia, negative for lymphoma, increased stainable iron. Peripheral blood smear showed moderate leukocytosis with neutrophilia and moderate normochromic normocytic anemia. His presenting chest x-ray was suspicious for pneumonia and infectious disease was consulted for assistance of management in an immunosuppressed patient and cefepime was recommended to be continued, vancomycin DC'd. He was also seen by cardiology for a suspicion of atrial fibrillation, seen on EKG however reinterpretation of the EKG indicated likely sinus arrhythmia. 2D echocardiogram showed EF of 65-70% with mild to moderate tricuspid valve regurgitation and an estimated pulmonary artery pressure of 38.9 mmHg. He was seen by pulmonology for the right pleural effusion and underwent thoracentesis of approximately 1300 mL of serosanguineous fluid which was negative for malignant cells by cytology and had no fungal or bacterial growth by culture. On 01/01 he developed increased oxygenation requirements overnight, high tube feed residual was noted and concern for aspiration was brought to the adjunct professor during a rapid response necessitating emergent intubation which showed a significant amount of tube feeds in the airway. He became hypotensive and required vasopressor support with Otis-Synephrine and oxygenation support with 100% FiO2. Report of the aspiration was discussed with infectious disease who adjusted antibiotics to start meropenem. At that time he underwent CT of the abdomen and pelvis showing free intraperitoneal air of unknown etiology. The supine view showed most of the free air around the gastrostomy tube and tip of the NG tube. Additional findings included mild to moderate ascites, moderate anasarca, bilateral pleural effusions with basilar atelectasis and nonobstructing right renal calculus. GI was consulted for further evaluation and an EGD was repeated showing an ulcer in the first portion of the duodenum otherwise normal. Contrast was injected through the PEG tube showing normal transition and a well-functioning tube. During hospitalization his renal indices continued to climb and Dr. Carver for nephrology was consulted for evaluation. Hypotension was considered or a contributing factor to acute renal failure and albumin was recommended every 12 hours. No recommendation was made for dialysis at that time. Patient's renal function continued to decline and the family requested a second opinion from an alternate news correspondent. He was then seen by Dr. Christensen's service who did discuss the possibility of dialysis with the family. Family is still preferring to pursue non-dialytic therapies but is not adverse to initiating dialysis if necessary. Palliative care has been consulted to assist family in goals of care and symptom management. . Function/Cognitive Trajectory Patient reports a decline over the last 6 months starting with fatigue, loss of appetite, weight loss and cough last June culminating in several hospitalizations and now unresponsive on the ventilator with failure to thrive and acute renal failure. . (Annalee Mahoney) Review of Systems ROS Limitations: Intubated (Patient is nonverbal and unable to provide their own ROS. 10 part ROS taken as best as possible from medical record and available family.) Constitutional: COMPLAINS OF: Weight loss, Change in appetite, Generalized weakness Respiratory: COMPLAINS OF: Shortness of breath Cardiovascular: COMPLAINS OF: Lower Extremity Edema (Annalee Mahoney) Past Family Social History Coded Allergies: hydrocodone (Verified Adverse Reaction, Mild, 12/22/17) Hallucinations Past Medical History NSVT while at [facility] CVA without residual deficits Hyperlipidemia Hypertension COPD Bilateral lower extremity neuropathy Stage IIIb anaplastic large cell lymphoma . Past Surgical History Port-A-Cath placed 12/20/2017 Back surgery [facility] in [place] . Reported Medications reports at home he is taking 1 blood pressure medication and 1 medication for hyperlipidemia, but does not remember medication names. . Current Medications Medications (Trade) Dose Ordered Sig/Candace Route Start Time Stop Time Status Last Admin (NS Flush) 2 ml UNSCH PRN IV FLUSH 12/22/17 18:15 (NS Flush) 2 ml BID IV FLUSH 12/22/17 21:00 01/16/18 08:32 (Zofran Inj) 4 mg Q6H PRN IVP 12/22/17 18:15 01/01/18 10:02 (Narcan Inj) 0.4 mg UNSCH PRN IV PUSH 12/22/17 18:15 (Milk Of Magnesia Liq) 30 ml Q12H PRN PO 12/22/17 18:15 (Lactulose Liq) 30 ml DAILY PRN PO 12/22/17 18:15 (Ambien) 5 mg HS PRN PO 12/22/17 20:15 01/15/18 20:30 (Megace Liq) 800 mg DAILY PO 12/23/17 09:00 01/16/18 08:32 (Symbicort 160-4.5 Mcg Inh) 1 puff Q12HR INH 12/22/17 21:00 01/07/18 09:00 (Lipitor) 80 mg DAILY PO 12/23/17 09:00 Future Hold 01/08/18 08:32 (Theragran) 1 tab DAILY PO 12/23/17 09:00 01/16/18 08:32 (Heparin Central Flush) 500 units UNSCH IV FLUSH 12/22/17 20:30 (NS Flush) 5 ml UNSCH PRN IVF 12/22/17 20:30 (Heparin Central Flush) 250 units UNSCH PRN IV FLUSH 12/22/17 20:30 12/27/17 20:27 (D50w (Vial) Inj) 50 ml UNSCH PRN IV PUSH 12/22/17 20:30 (Glucagon Inj) 1 mg UNSCH PRN OTHER 12/22/17 20:30 (Robitussin Dm 200-20 Mg/10 ml Liq) 10 ml Q4H PRN PO 12/22/17 21:00 12/26/17 18:27 (Tessalon) 100 mg TID PRN PO 12/25/17 12:00 (Benadryl) 25 mg Q4H PRN PO 12/31/17 16:30 (Tums Chew) 500 mg Q12HR PRN CHEW 12/31/17 16:15 01/01/18 05:27 (Deltasone) 10 mg BID PO 01/01/18 21:00 01/16/18 08:32 (Peridex 0.12% Liq) 15 ml BID@08,20 MT 01/01/18 20:00 01/16/18 08:00 (Brethine Inj) 1 mg UNSCH PRN SQ 01/01/18 17:00 (NovoLOG SUPPLEMENTAL SCALE) 1 Q6HR SQ 01/07/18 18:00 01/16/18 00:48 (Colace Liq) 100 mg Q12HR OG-TUBE 01/07/18 21:00 01/16/18 08:32 (NS Flush) 5 ml UNSCH PRN IV FLUSH 01/08/18 18:00 (Heparin Central Flush) 250 units UNSCH PRN IV FLUSH 01/08/18 18:00 (Heparin Central Flush) 500 units UNSCH IV FLUSH 01/08/18 18:00 (Tylenol 650 Mg/ 20 ml Liq) 650 mg Q6H PRN G-TUBE 01/09/18 10:00 (Prevacid Odt) 30 mg BID G-TUBE 01/09/18 21:00 01/16/18 08:32 (Albuterol Neb) 2.5 mg Q2HR NEB PRN NEB 01/09/18 10:00 (Tears Naturale Opth Soln) 1 drop Q8HR EACH EYE 01/09/18 14:00 01/16/18 05:59 (Heparin Inj) 5,000 units Q8HR SQ 01/09/18 14:00 01/16/18 05:58 (Aspirin Chew) 81 mg DAILY CHEW 01/10/18 11:00 01/16/18 08:32 Dexmedetomidine HCl 1000 mcg/ Sodium Chloride 250 ml @ 4.76 mls/hr TITRATE PRN IV 01/10/18 13:45 01/15/18 20:29 Sodium Chloride 1,000 ml @ 0 mls/hr Q0M PRN OTHER 01/11/18 11:53 (Heparin Inj) 8,000 units UNSCH PRN IV FLUSH 01/11/18 12:00 Sodium Chloride 1,000 ml @ 200 mls/hr Q5H PRN IV 01/11/18 11:53 Sodium Chloride 1,000 ml @ 0 mls/hr Q0M PRN OTHER 01/11/18 11:53 (Mannitol Inj) 12.5 gm UNSCH PRN IV 01/11/18 12:00 Albumin Human 100 ml @ 60 mls/hr UNSCH PRN IV 01/11/18 12:00 (NS Flush) 5 ml UNSCH PRN IV FLUSH 01/11/18 12:00 (Heparin Inj) UNSCH PRN .XX 01/11/18 12:00 (Gentamicin Inj) 20 mg UNSCH PRN OTHER 01/11/18 12:00 (Zofran Inj) 4 mg UNSCH PRN IV PUSH 01/11/18 12:00 (Tylenol) 650 mg UNSCH PRN PO 01/11/18 12:00 (Benadryl) 25 mg UNSCH PRN PO 01/11/18 12:00 (Nitrostat Sl) 0.4 mg UNSCH PRN SL 01/11/18 12:00 (Catapres) 0.1 mg UNSCH PRN PO 01/11/18 12:00 (Epogen Inj) 4,000 units UNSCH PRN IV PUSH 01/11/18 12:00 (Gelfoam 12 Mm/7 Mm Top) 1 foam UNSCH PRN TOP 01/11/18 12:00 (Peridex 0.12% Liq) 15 ml BID@08,20 MT 01/13/18 08:00 01/15/18 20:00 (Duoneb Neb) 1 ampule Q6HR WHILE AWAKE NEB NEB 01/13/18 14:00 01/16/18 08:14 (fentaNYL INJ) 25 mcg Q1HR PRN IV PUSH 01/14/18 17:00 01/16/18 06:50 Norepinephrine Bitartrate 4 mg/ Sodium Chloride 250 ml @ 7.5 mls/hr TITRATE PRN IV 01/14/18 18:45 01/16/18 01:06 (Reglan Inj) 5 mg Q8HR IV PUSH 01/15/18 15:00 01/16/18 05:58 (Senna Liq) 8.8 mg BID J-TUBE 01/15/18 21:00 01/16/18 08:39 (Free Water) VOLUME OF WATER: ( 300 ) ML Q6HR G-TUBE 01/15/18 18:00 01/15/18 22:23 Propofol 100 ml @ 2.922 mls/ hr TITRATE PRN IV 01/15/18 23:45 01/16/18 08:25 (ZyPREXA) 10 mg Q8H PO 01/16/18 10:00 (Proamatine) 10 mg Q8H PO 01/16/18 09:00 01/16/18 08:40 Miscellaneous Information Hold Anticoagulation after midni... ONCE ONCE OTHER 01/16/18 10:15 01/16/18 10:16 UNV Family History Father from lung cancer . Substance Use Tobacco: Smoked from age 11 until age 55 about 1-1/2 packs per day. Alcohol: Denies Prescription med abuse: Denies Illicits: Denies Psychosocial History He was born in [place] and has lived here all of his life. 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 They have 2 children who live around the [facility] who provide their mother support. . Spiritual/Cultural Factors Software Reliability Engineer is available, family declines consult at this time. . (Annalee Mahoney) Living Will: Never completed Health Care Surrogate: Never completed Durable Power of Linux Engineer: Never completed Health Care Surrogate(s): Not completed. . Documented care wishes: No living will completed. . Today's verbally stated goals: Patient is intubated, sedated, unable to state goals. . Family/friends goals: 's goals are aggressive and wishes to pursue chemotherapy and other aggressive interventions to include dialysis, tracheostomy placement and feeding tube. . Ethical and Legal Issues None noted. . (Annalee Mahoney) Physical Exam Vital Signs Date Time Temp Pulse Resp B/P (MAP) Pulse Ox O2 Delivery O2 Flow Rate FiO2 01/16/18 08:18 35 01/16/18 08:18 98 35 01/16/18 06:00 89 01/16/18 04:20 16 01/16/18 04:11 94 30 01/16/18 04:00 94 01/16/18 04:00 35 01/16/18 04:00 98.7 128 17 129/90 (103) 94 01/16/18 02:00 98 01/16/18 01:06 100 116/76 01/16/18 00:36 99 35 01/16/18 00:00 98.7 128 17 129/90 (103) 94 01/16/18 00:00 35 01/16/18 00:00 132 01/15/18 22:00 92 01/15/18 20:49 97 35 01/15/18 20:00 98.9 92 25 123/63 (83) 95 01/15/18 20:00 35 01/15/18 20:00 92 01/15/18 18:00 104 01/15/18 16:06 100 35 01/15/18 16:00 35 01/15/18 16:00 98.0 90 20 124/68 (86) 97 01/15/18 16:00 100 01/15/18 14:09 97 35 01/15/18 14:00 100 01/15/18 12:00 92 01/15/18 12:00 35 01/15/18 12:00 98.2 92 30 131/72 (91) 97 . Exam CONSTITUTIONAL/GENERAL: This is a thin, elderly male intubated, sedated in no acute distress. TUBES/LINES/DRAINS: Right chest wall port SKIN: No jaundice, rashes, or lesions. No wounds seen anteriorly. Skin temperature appropriate. Not diaphoretic. HEAD: Atraumatic. Normocephalic. EYES: Pupils 2 mm equal and round and sluggishly reactive. No scleral icterus. No injection or drainage. Fundi not examined. ENT: Nose without bleeding or purulent drainage. Throat without visible erythema, exudates, masses, or lesions. NECK: Trachea midline. Supple, without palpable thyroid enlargement or nodularity. CARDIOVASCULAR: Irregular rhythm, S1, S2, episodes of atrial bigeminy seen on telemetry, sinus mechanism underlying. No rub murmur or gallop. RESPIRATORY/CHEST: Symmetric, unlabored respirations. Coarse rhonchi throughout all anterior lung clark, posterior diminished with faint bibasilar crackles. GASTROINTESTINAL: Abdomen soft, protuberant, nondistended. Hypoactive bowel sounds 4. GENITOURINARY: Without palpable bladder distension. Hay catheter in place. MUSCULOSKELETAL: 3+ pitting edema to bilateral lower extremities, 1+ to upper extremities, extremities warm with less than 3 second capillary refill. NEUROLOGICAL: Intubated, sedated. PSYCHIATRIC: Sedated. . (Annalee Mahoney) Diagnostic Tests Laboratory Laboratory Tests Test 01/14/18 05:43 01/15/18 05:00 01/16/18 05:45 White Blood Count 9.4 TH/MM3 (4.0-11.0) 10.3 TH/MM3 (4.0-11.0) 13.8 TH/MM3 (4.0-11.0) Red Blood Count 2.59 MIL/MM3 (4.50-5.90) 2.95 MIL/MM3 (4.50-5.90) 2.94 MIL/MM3 (4.50-5.90) Hemoglobin 7.5 GM/DL (13.0-17.0) 8.6 GM/DL (13.0-17.0) 8.5 GM/DL (13.0-17.0) Hematocrit 22.1 % (39.0-51.0) 25.3 % (39.0-51.0) 25.4 % (39.0-51.0) Mean Corpuscular Volume 85.2 FL (80.0-100.0) 85.8 FL (80.0-100.0) 86.3 FL (80.0-100.0) Mean Corpuscular Hemoglobin 29.0 PG (27.0-34.0) 29.0 PG (27.0-34.0) 29.0 PG (27.0-34.0) Mean Corpuscular Hemoglobin Concent 34.1 % (32.0-36.0) 33.8 % (32.0-36.0) 33.6 % (32.0-36.0) Red Cell Distribution Width 17.7 % (11.6-17.2) 17.8 % (11.6-17.2) 18.6 % (11.6-17.2) Platelet Count 336 TH/MM3 (150-450) 363 TH/MM3 (150-450) 381 TH/MM3 (150-450) Mean Platelet Volume 9.7 FL (7.0-11.0) 9.3 FL (7.0-11.0) 9.6 FL (7.0-11.0) Neutrophils (%) (Auto) 92.8 % (16.0-70.0) 91.7 % (16.0-70.0) 93.5 % (16.0-70.0) Lymphocytes (%) (Auto) 3.4 % (9.0-44.0) 3.2 % (9.0-44.0) 2.3 % (9.0-44.0) Monocytes (%) (Auto) 3.2 % (0.0-8.0) 4.8 % (0.0-8.0) 3.9 % (0.0-8.0) Eosinophils (%) (Auto) 0.1 % (0.0-4.0) 0.0 % (0.0-4.0) 0.0 % (0.0-4.0) Basophils (%) (Auto) 0.5 % (0.0-2.0) 0.3 % (0.0-2.0) 0.3 % (0.0-2.0) Neutrophils # (Auto) 8.7 TH/MM3 (1.8-7.7) 9.4 TH/MM3 (1.8-7.7) 12.9 TH/MM3 (1.8-7.7) Lymphocytes # (Auto) 0.3 TH/MM3 (1.0-4.8) 0.3 TH/MM3 (1.0-4.8) 0.3 TH/MM3 (1.0-4.8) Monocytes # (Auto) 0.3 TH/MM3 (0-0.9) 0.5 TH/MM3 (0-0.9) 0.5 TH/MM3 (0-0.9) Eosinophils # (Auto) 0.0 TH/MM3 (0-0.4) 0.0 TH/MM3 (0-0.4) 0.0 TH/MM3 (0-0.4) Basophils # (Auto) 0.0 TH/MM3 (0-0.2) 0.0 TH/MM3 (0-0.2) 0.0 TH/MM3 (0-0.2) CBC Comment AUTO DIFF AUTO DIFF AUTO DIFF Differential Comment AUTO DIFF CONFIRMED AUTO DIFF CONFIRMED FINAL DIFF MANUAL Dohle Bodies PRESENT (NONE SEEN) Platelet Estimate NORMAL (NORMAL) NORMAL (NORMAL) Platelet Morphology Comment NORMAL (NORMAL) NORMAL (NORMAL) Blood Urea Nitrogen 110 MG/DL (7-18) 120 MG/DL (7-18) 133 MG/DL (7-18) Creatinine 4.06 MG/DL (0.60-1.30) 4.31 MG/DL (0.60-1.30) 4.62 MG/DL (0.60-1.30) Random Glucose 137 MG/DL (74-106) 152 MG/DL (74-106) 115 MG/DL (74-106) Calcium Level 7.7 MG/DL (8.5-10.1) 8.0 MG/DL (8.5-10.1) 8.0 MG/DL (8.5-10.1) Phosphorus Level 5.0 MG/DL (2.5-4.9) 4.4 MG/DL (2.5-4.9) 4.7 MG/DL (2.5-4.9) Magnesium Level 2.6 MG/DL (1.5-2.5) 2.5 MG/DL (1.5-2.5) 2.7 MG/DL (1.5-2.5) Sodium Level 148 MEQ/L (136-145) 151 MEQ/L (136-145) 150 MEQ/L (136-145) Potassium Level 4.4 MEQ/L (3.5-5.1) 4.3 MEQ/L (3.5-5.1) 4.3 MEQ/L (3.5-5.1) Chloride Level 117 MEQ/L (98-107) 118 MEQ/L (98-107) 118 MEQ/L (98-107) Carbon Dioxide Level 20.3 MEQ/L (21.0-32.0) 20.4 MEQ/L (21.0-32.0) 19.6 MEQ/L (21.0-32.0) Anion Gap 11 MEQ/L (5-15) 13 MEQ/L (5-15) 12 MEQ/L (5-15) Estimat Glomerular Filtration Rate 15 ML/MIN (>89) 14 ML/MIN (>89) 13 ML/MIN (>89) Differential Total Cells Counted 100 Neutrophils % (Manual) 84 % (16-70) Band Neutrophils % 7 % (0-6) Lymphocytes % 6 % (9-44) Monocytes % 3 % (0-8) Neutrophils # (Manual) 12.6 TH/MM3 (1.8-7.7) Albumin 1.6 GM/DL (3.4-5.0) Prealbumin 25 MG/DL (20-40) (Annalee Mahoney) Result Diagram: 01/16/18 0545 01/16/18 0545 Microbiology Microbiology Date/Time Source Procedure Growth Status 01/01/18 17:57 Blood Peripheral Aerobic Blood Culture - Final NO GROWTH IN 5 DAYS Complete 01/01/18 17:57 Blood Peripheral Anaerobic Blood Culture - Final NO GROWTH IN 5 DAYS Complete 12/28/17 12:15 Fluid Pleural Fluid Fungal Smear - Final NO FUNGAL ELEMENTS SEEN. Resulted 12/28/17 12:15 Fluid Pleural Fluid Fungal Culture - Preliminary NO GROWTH IN 2 WEEKS Resulted 01/01/18 17:15 Sputum Endotracheal Gram Stain - Final Complete 01/01/18 17:15 Sputum Endotracheal Sputum Culture - Final HEAVY GROWTH NORMAL RESPIRATORY LISA Complete 01/01/18 17:15 Urine Catheterized Urine Urine Culture - Final NO GROWTH IN 48 HOURS. Complete Imaging Last Impressions Chest X-Ray 01/16/18 0600 Signed Impressions: Service Date/Time: Tuesday, January 16, 2018 04:51 - CONCLUSION: No significant change Andres Drew MD Lower Extremity Ultrasound 01/15/18 0000 Signed Impressions: Service Date/Time: Monday, January 15, 2018 18:00 - CONCLUSION: Normal examination. Elbert Carrasquillo MD Abdomen X-Ray 01/15/18 0000 Signed Impressions: Service Date/Time: Monday, January 15, 2018 15:06 - CONCLUSION: Nonspecific, nonobstructive bowel gas pattern. PEG tube present. Andres Parekh MD Gastrostomy Tube Change 01/08/18 0000 Signed Impressions: Service Date/Time: Monday, January 08, 2018 14:35 - CONCLUSION: Conversion of the patient's existing gastrostomy tube to a gastrojejunostomy tube. Siva Bean Jr., MD Renal Ultrasound 01/05/18 0000 Signed Impressions: Service Date/Time: Friday, January 05, 2018 08:00 - CONCLUSION: Echogenic kidneys suggesting medical renal disease. Some ascites. Bilateral pleural effusions. Lee Mijares MD Head CT 01/05/18 0000 Signed Impressions: Service Date/Time: Friday, January 05, 2018 11:41 - CONCLUSION: 1. No acute abnormality is seen. 2. Old lacunar infarct at the left basal ganglia. 3. Fluid in the mastoid air cells on the right. Andres Valero MD Small Bowel X-Ray 01/03/18 0000 Signed Impressions: Service Date/Time: December 14:27 - CONCLUSION: 1. No leakage identified on injection through gastrostomy tube. No small bowel obstruction or significant dilatation. Elbert Carrasquillo MD Abdomen/Pelvis CT 01/02/18 0000 Signed Impressions: Service Date/Time: Tuesday, January 02, 2018 21:38 - CONCLUSION: 1. Free intraperitoneal air of unknown etiology. On the supine view most of the free air is around the gastrostomy tube and tip of the nasogastric tube as discussed above. 2. Mild to moderate ascites. Moderate anasarca. 3. Moderate bilateral effusions with basilar atelectasis. 4. Nonobstructing right renal calculus. Hay catheter in bladder. Elbert Carrasquillo MD Chest CT 12/30/17 0000 Signed Impressions: Service Date/Time: Saturday, December 30, 2017 21:13 - CONCLUSION: 1. Free intraperitoneal air in the upper abdomen of uncertain etiology. There is a gastrostomy present. 2. Moderate bilateral pleural effusions with compressive atelectasis. Patchy air space consolidation in the right upper lobe. 3. Moderate anasarca and ascites. 4. Findings called to the floor at the time of dictation. Elbert Carrasquillo MD Chest Ultrasound 12/27/17 0000 Signed Impressions: Service Date/Time: December 21:39 - CONCLUSION: Large left pleural effusion and would be amenable to thoracentesis. Frandy was made on the overlying skin. Andres Parekh MD Bone Biopsy CT 12/25/17 1142 Signed Impressions: Service Date/Time: Monday, December 25, 2017 12:32 - CONCLUSION: 1. Uncomplicated CT guided bone marrow aspirate. 2. Uncomplicated CT guided bone marrow biopsy. Lee Mijares MD CT Angiography 12/25/17 0000 Signed Impressions: Service Date/Time: [place], December 25, 2017 09:26 - CONCLUSION: 1. No CT evidence for pulmonary artery embolism. 2. Moderate to large bilateral pleural effusions with associated compressive atelectasis at the lung bases. 3. 8mm nodule in the right middle lobe. Followup CT examination may be performed at 6 months to document stability if this has not been evaluated previously. 4. Very mildly prominent mediastinal and hilar nodes and partially imaged upper abdominal lymphadenopathy in this patient with history of lymphoma. Miguel Ashton MD Procedures 12/25 bone marrow biopsy 12/25 PEG tube placement 12/28 thoracentesis 01/01 intubation 01/01 left IJ central line placement 01/08, G-tube change from PEG to GJ. 01/12 extubated 01/13 orotracheal intubation . Other Pathology FINAL DIAGNOSIS: BIOPSY GASTRIC ANTRUM GASTRIC ANTRAL MUCOSAL BIOPSIES WITH MILD CHRONIC GASTRITIS NEGATIVE FOR INTESTINAL METAPLASIA AND DYSPLASIA, TUNG STAIN NEGATIVE FOR HELICOBACTER Bone marrow biopsy FINAL DIAGNOSIS: BONE MARROW, ASPIRATION, CLOT SECTION AND TREPHINE BIOPSY: - HYPERCELLULAR BONE MARROW WITH MYELOID HYPERPLASIA (SEE COMMENT). - NEGATIVE FOR LYMPHOMA. ~~~~~~~ - INCREASED STAINABLE IRON. PERIPHERAL BLOOD, SMEAR: - MODERATE LEUKOCYTOSIS WITH NEUTROPHILIA. - MODERATE NORMOCHROMIC NORMOCYTIC ANEMIA. COMMENT: Flow cytometric evaluation of the bone marrow as reported by [facility] ( their case# [id number]) reveals no evidence of a neoplastic leukocyte population in the analyzed sample. The low proportion of immature precursors suggests possible hemodilution. Morphologic features in the marrow include increased cellularity for age, myeloid hyperplasia and increased iron stores. Distinct involvement by the patients anaplastic large cell lymphoma (unavailable for review) is not appreciated. The peripheral blood shows significant leukocytosis with neutrophilia and moderate anemia. Although the myeloid hyperplasia in the marrow and peripheral blood neutrophilia may represent a reactive process, the possibility of an evolving myeloproliferative disorder should be considered if the neutrophilia persists. Correlation with the clinical findings and pending cytogenetic study is recommended. Cytology of pleural fluid is negative for malignant cells. . (Annalee Mahoney) Patient/Family Conference Present at Family Conference: Spoke with , Kalani at bedside as well as her [id number], who states that she is a BUSINESS SERVICES SALES AGENT at [employer]. The [id number] is confrontational, hostile and disruptive to the conversation. The is pleasant, states she is overwhelmed with the number of decisions to be made and most concerned over her 's mentation and agitation since he required reintubation. She is hopeful that dialysis may help return him to his prior state of cognition. Discussed placement of Vas-Cath and trach today. She requests a couple of days to evaluate his mentation after trach Vas-Cath placement for revisit from palliative care. Contact information provided for any further questions or concerns. . Family Conference Location: Bedside Issues Discussed: * Palliative care role, purpose, approach * Additional medical, psychosocial, and spiritual history * Patients general health, functional status, and cognitive changes in the months leading up to the current hospitalization * Patient/family understanding of the current medical problems * Patient/family understanding of prognosis * Patients goals of care as best understood from advance directives and/or conversations and/or values * Current medical treatment options and benefits/burdens of those options * Likely scenarios comparing ongoing aggressive care with a transition to comfort measures only * Questions answered to the best of my ability * Palliative care contact information provided (Annalee Mahoney) Assessment and Plan Disease Oriented Problem List: (1) COPD (chronic obstructive pulmonary disease) (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 They have 2 children who live around the [facility] who provide their mother support. Spiritual: Declining video editing intern support. Legal: No legal issues noted. Ethical issues impacting care: No ethical issues noted. . Important Contacts : Kalani Diaz Prognosis His prognosis is very poor. He has stage IIIb anaplastic non-Hodgkin's lymphoma and is unable to pursue further chemotherapy due to his critical illness and debilitated state. Attempts to extubate him failed within 24 hours requiring reintubation. He is now suffering from acute renal failure in addition to his other comorbidities. He is not likely to survive this hospitalization. Code Status: Full Code Plan PLAN: Legal decision maker: , Kalani Diaz. Goals: Aggressive CODE STATUS: FULL CODE SYMPTOMS: * Dyspnea: Remains intubated. Plan for tracheostomy placement today, remains on 35% FiO2 and propofol for vent synchrony. He is receiving DuoNeb every 6 hours. Case management is following and has [facility]. * Agitation: He becomes agitated when off sedation, complicating attempts to extubate him. He is currently on 45 mcg/kg/min of propofol and continues to shake his head back and forth intermittently. He is not responding to commands even on lightened sedation. SUMMARY This is a 72-year-old male with anaplastic stage IIIB non-Hodgkin's lymphoma status post 1 cycle of CHOP therapy, now intubated, sedated on vasopressor support with acute renal failure. 's goals remain aggressive and she wishes to initiate dialysis today. Plan for trach and Vas-Cath placement today. [facility] is evaluating patient for placement once trach and PEG is placed. While 's goals remain unrealistic, her primary support at this time is her [id number], who is an RN and demonstrating hostility and resistance to conversations. Will continue to follow and provide support as tolerated. Palliative care will continue to follow the patient during hospital course as condition evolves, to assist patient/decision-maker with understanding of their medical conditions, weighing benefits/burdens of treatment options, for clarification of goals of treatment. Additionally will assist with any symptoms of palliative concern. . (Annalee Mahoney) Thank you for the opportunity to participate in the care of Mr. Diaz. (Annalee Mahoney) Attestation To help prompt me to consider important information that might be impacting today's encounter and assessment, information from prior notes written by myself or my colleagues may have been "brought forward" into today's note. My signature on this note, however, is an attestation that I personally performed the exam, history, and/or decision-making noted today, and, unless otherwise indicated, the interactions with patient, family, and staff as well as the review of records all occurred today. I also attest that the listed assessment and stated plan reflect my best clinical judgment today based on the combination of historical information, prior notes, and today's exam/ interactions. When time spent is documented, it refers only to time spent today by the signer, or if indicated, combined time spent today by collaborating physician/nurse practitioner. . (Annalee Mahoney) Collaborating MD Comments Chart reviewed. Case discussed with palliative care ROVING DEPARTMENT END FINDER. Above ROVING DEPARTMENT END FINDER note reviewed and I concur. . (Prabhakar Laurent MD) Annalee Mahoney Jan 16, 2018 11:24 Prabhakar Laurent MD Jan 21, 2018 05:43
--- NOTE | 2018-01-16 11:37 | PD.ONC.PN ---
Subjective Subjective Remarks Afebrile overnight. Patient remains intubated. on sedation but still somewhat agitated. remains on pressor support. Objective Data Date Time Temp Pulse Resp B/P (MAP) Pulse Ox O2 Delivery O2 Flow Rate FiO2 01/16/18 08:18 35 01/16/18 08:18 98 35 01/16/18 06:00 89 01/16/18 04:20 16 01/16/18 04:11 94 30 01/16/18 04:00 94 01/16/18 04:00 35 01/16/18 04:00 98.7 128 17 129/90 (103) 94 01/16/18 02:00 98 01/16/18 01:06 100 116/76 01/16/18 00:36 99 35 01/16/18 00:00 98.7 128 17 129/90 (103) 94 01/16/18 00:00 35 01/16/18 00:00 132 01/15/18 22:00 92 01/15/18 20:49 97 35 01/15/18 20:00 98.9 92 25 123/63 (83) 95 01/15/18 20:00 35 01/15/18 20:00 92 01/15/18 18:00 104 01/15/18 16:06 100 35 01/15/18 16:00 35 01/15/18 16:00 98.0 90 20 124/68 (86) 97 01/15/18 16:00 100 01/15/18 14:09 97 35 01/15/18 14:00 100 01/15/18 12:00 92 01/15/18 12:00 35 01/15/18 12:00 98.2 92 30 131/72 (91) 97 01/16/18 01/16/18 01/16/18 07:00 15:00 23:00 Output Total 650 ml Balance -650 ml Result Diagram: 01/16/18 0545 01/16/18 0545 Laboratory Results Laboratory Tests Test 01/16/18 05:45 White Blood Count 13.8 TH/MM3 Red Blood Count 2.94 MIL/MM3 Hemoglobin 8.5 GM/DL Hematocrit 25.4 % Mean Corpuscular Volume 86.3 FL Mean Corpuscular Hemoglobin 29.0 PG Mean Corpuscular Hemoglobin Concent 33.6 % Red Cell Distribution Width 18.6 % Platelet Count 381 TH/MM3 Mean Platelet Volume 9.6 FL Neutrophils (%) (Auto) 93.5 % Lymphocytes (%) (Auto) 2.3 % Monocytes (%) (Auto) 3.9 % Eosinophils (%) (Auto) 0.0 % Basophils (%) (Auto) 0.3 % Neutrophils # (Auto) 12.9 TH/MM3 Lymphocytes # (Auto) 0.3 TH/MM3 Monocytes # (Auto) 0.5 TH/MM3 Eosinophils # (Auto) 0.0 TH/MM3 Basophils # (Auto) 0.0 TH/MM3 CBC Comment AUTO DIFF Differential Total Cells Counted 100 Neutrophils % (Manual) 84 % Band Neutrophils % 7 % Lymphocytes % 6 % Monocytes % 3 % Neutrophils # (Manual) 12.6 TH/MM3 Differential Comment FINAL DIFF MANUAL Platelet Estimate NORMAL Platelet Morphology Comment NORMAL Blood Urea Nitrogen 133 MG/DL Creatinine 4.62 MG/DL Random Glucose 115 MG/DL Albumin 1.6 GM/DL Calcium Level 8.0 MG/DL Phosphorus Level 4.7 MG/DL Magnesium Level 2.7 MG/DL Sodium Level 150 MEQ/L Potassium Level 4.3 MEQ/L Chloride Level 118 MEQ/L Carbon Dioxide Level 19.6 MEQ/L Anion Gap 12 MEQ/L Estimat Glomerular Filtration Rate 13 ML/MIN Prealbumin 25 MG/DL Imaging Studies Last 24 hours Impressions Chest X-Ray 01/16/18 0600 Signed Impressions: Service Date/Time: Tuesday, January 16, 2018 04:51 - CONCLUSION: No significant change Andres Drew MD Administered Medications Medications (Trade) Dose Ordered Sig/Candace Route PRN Reason Start Time Stop Time Status Last Admin Dose Admin Sodium Chloride (NS Flush) 2 ml BID IV FLUSH 12/22/17 21:00 01/16/18 08:32 Ondansetron HCl (Zofran Inj) 4 mg Q6H PRN IVP NAUSEA OR VOMITING 12/22/17 18:15 01/01/18 10:02 Zolpidem Tartrate (Ambien) 5 mg HS PRN PO INSOMNIA 12/22/17 20:15 01/15/18 20:30 Megestrol Acetate (Megace Liq) 800 mg DAILY PO 12/23/17 09:00 01/16/18 08:32 Budesonide/ Formoterol Fumarate (Symbicort 160-4.5 Mcg Inh) 1 puff Q12HR INH 12/22/17 21:00 01/07/18 09:00 Atorvastatin Calcium (Lipitor) 80 mg DAILY PO 12/23/17 09:00 Future Hold 01/08/18 08:32 Multivitamins (Theragran) 1 tab DAILY PO 12/23/17 09:00 01/16/18 08:32 Heparin Sodium (Porcine) (Heparin Central Flush) 250 units UNSCH PRN IV FLUSH SEE PROTOCOL 12/22/17 20:30 12/27/17 20:27 Guaifenesin/ Dextromethorphan (Robitussin Dm 200-20 Mg/10 ml Liq) 10 ml Q4H PRN PO cough interfering with rest 12/22/17 21:00 12/26/17 18:27 Calcium Carbonate (Tums Chew) 500 mg Q12HR PRN CHEW indigestion 12/31/17 16:15 01/01/18 05:27 Prednisone (Deltasone) 10 mg BID PO 01/01/18 21:00 01/16/18 08:32 Chlorhexidine Gluconate (Peridex 0.12% Liq) 15 ml BID@08,20 MT 01/01/18 20:00 01/16/18 08:00 Insulin Aspart (NovoLOG SUPPLEMENTAL SCALE) 1 Q6HR SQ 01/07/18 18:00 01/16/18 00:48 Docusate Sodium (Colace Liq) 100 mg Q12HR OG-TUBE 01/07/18 21:00 01/16/18 08:32 Lansoprazole (Prevacid Odt) 30 mg BID G-TUBE 01/09/18 21:00 01/16/18 08:32 Artificial Tears (Tears Naturale Opth Soln) 1 drop Q8HR EACH EYE 01/09/18 14:00 01/16/18 05:59 Heparin Sodium (Porcine) (Heparin Inj) 5,000 units Q8HR SQ 01/09/18 14:00 Future Hold 01/16/18 05:58 Aspirin (Aspirin Chew) 81 mg DAILY CHEW 01/10/18 11:00 01/16/18 08:32 Dexmedetomidine HCl 1000 mcg/ Sodium Chloride 250 ml @ 4.76 mls/hr TITRATE PRN IV SEDATION 01/10/18 13:45 01/15/18 20:29 Chlorhexidine Gluconate (Peridex 0.12% Liq) 15 ml BID@08,20 MT 01/13/18 08:00 01/15/18 20:00 Albuterol/ Ipratropium (Duoneb Neb) 1 ampule Q6HR WHILE AWAKE NEB NEB 01/13/18 14:00 01/16/18 08:14 Fentanyl Citrate (fentaNYL INJ) 25 mcg Q1HR PRN IV PUSH Breakthrough pain 01/14/18 17:00 01/16/18 10:42 Norepinephrine Bitartrate 4 mg/ Sodium Chloride 250 ml @ 7.5 mls/hr TITRATE PRN IV Blood pressure management 01/14/18 18:45 01/16/18 01:06 Metoclopramide HCl (Reglan Inj) 5 mg Q8HR IV PUSH 01/15/18 15:00 01/16/18 05:58 Sennosides (Senna Liq) 8.8 mg BID J-TUBE 01/15/18 21:00 01/16/18 08:39 Water (Free Water) VOLUME OF WATER: ( 300 ) ML Q6HR G-TUBE 01/15/18 18:00 01/16/18 11:29 Propofol 100 ml @ 2.922 mls/ hr TITRATE PRN IV Sedation 01/15/18 23:45 01/16/18 08:25 Olanzapine (ZyPREXA) 10 mg Q8H PO 01/16/18 10:00 01/16/18 10:31 Midodrine (Proamatine) 10 mg Q8H PO 01/16/18 09:00 01/16/18 08:40 Objective Remarks GENERAL: Intubated, agitated male, supine in bed. SKIN: Warm and dry. HEAD: Normocephalic. EYES: No injection or drainage. NECK: Supple, trachea midline. CARDIOVASCULAR: +S1/S2 RESPIRATORY: scattered rhonchi anterior clark. on mechanical ventilation. GASTROINTESTINAL: Abdomen mildly distended. GJ tube clamped EXTREMITIES: No cyanosis. extensive edema all extremities. NEUROLOGICAL: sedated, does not follow commands, does not track with eyes. 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 monitor renal function. no transfusion today. 01/15/18: hgb 8.6. monitor CBC. no transfusion today. 01/14/18: Pt remains intubated. Transfuse 1 unit PRBC's for increased O2 demands, hemoglobin of 7.5. Monitor CBC in am. 01/13/18: await labs today. prognosis poor with worsening renal function, continue reliance on mechanical ventilation. 01/12: renal function continuing to worsen. considering hemodialysis per nephrology recommendations. next chemotherapy would be next week if patient improved 01/11: WBC remains recovered, renal function continuing to decline. patient remains intubated. plan from oncology standpoint is to give a second round of chemotherapy if he clinically improves. 01/10: patient remains critically ill, intubated and is currently minimally responsive off sedation. will hold chemotherapy until clinically improved. 01/09: Next cycle of CHOP chemo is due next week; we will likely hold this until he is more stable. Continue to monitor CBC. 01/08: monitor CBC, WBC is recovered. 01/07: Continue neupogen x 1 more day. Monitor CBC. Transfuse 1 unit packed red blood cells if hemoglobin trending down tomorrow. CXR shows worsening disease. Abx per ID, Vent mgmt by dance professor. 01/06: Patient no longer neutropenic. Continue Neupogen today. Monitor CBC. 01/05: Noted white blood cells minimally improved. Continue Neupogen for now. Await results from CT brain. Supportive care. 01/04: remains on vent. Off pf pressors. Pancytopenia with Neutropenia. Continue neupogen. Vent management per Coin Counter And Wrapper. Extensive d/w and DIL ( FLAKEBOARD LINE TENDER) . answered their questions. Continue maximal support. 01/03: Continue Neupogen. Transfuse 1 unit packed red blood cells today for hemoglobin of 7.5. Monitor CBC. 01/02: patient remains intubated, sedated. start Neupogen for neutropenia + infection 01/01: patient in respiratory failure. intubated and transferring to intensive care. 12/31: C. difficile negative. Bone marrow biopsy shows no lymphoma involvement. Cytology from thoracentesis pending. Transfuse 1 unit PRBC for symptomatic with hgb 7.7. Patient would benefit from inpatient rehab for strengthening 12/28: continue solu-medrol. await thoracentesis. consult OT. 12/27: start Solu-medrol 40mg IV q 6. consult pulmonology for worsening infiltrates, pleural effusions. monitor CBC, counts dropping. 12/26: CT chest shows Bilateral Pl effusion. Continue aggressive diuresis. Had CHOP C1D1 yesterday. Tolerated well. Next chemo in 3 weeks as outpt. Continue allopurinol and prednisone. 12/25: CTA shows no PE. +LAD, PE. dyspnea likely d/t lymphoma. will give Solu- medrol 1g IV and start CHOP today. Anaplastic large cell, non-Hodgkin's lymphoma, at least stage III. --unclear whether he has any B symptoms, but this could be most likely given that he has significant weight loss, which is one of the symptoms of lymphoma. --Leukocytosis, anemia and neutrophilia, most likely due to bone marrow involvement by the lymphoma until proven otherwise. (2) Renal insufficiency ICD Codes: N28.9 - Disorder of kidney and ureter, unspecified Plan: --Nephrology following. --planning to start dialysis Assessment 72y/o male with newly diagnosed anaplastic large cell NHL. h/o COPD, hypercholesterolemia, hypertension, history of previous stroke. HPI: started 8 weeks ago with a cough mixed with greenish phlegm and shortness of breath. CT cap showed diffuse lymphadenopathy on both sides of the diaphragm. PET scan showed increased uptake in the lymph nodes involving the neck, chest, mediastinal and hilar area, retroperitoneum and pelvic lymph nodes. biopsy of the left neck mass=anaplastic large cell NHL echocardiogram, LVEF=55-70%. MUGA scan, showed EF of 60%. Attending Statement The exam, history, and the medical decision-making described in the above note were completed with the assistance of the mid-level provider. I reviewed and agree with the findings presented. I attest that I had a [id number] encounter with the patient on the same day, and personally performed and documented my assessment and findings in the medical record. Sedated and intubated. D/W pt . She understand his prognosis. She is hopeful that he may get better. She is agreed to dialysis and trach. Susy La Jan 16, 2018 11:37 Josy Suarez MD Jan 16, 2018 16:46
--- NOTE | 2018-01-16 12:17 | RADRPT ---
EXAM DATE/TIME: 01/16/2018 09:47 [place] COMPARISON: No previous studies available for comparison. EXTERNAL COMPARISON : [facility], CT ABDOMEN AND PELVIS W AND W/O CONTRAST, November 22, 2017 INDICATIONS : Abnormal labs. MEDICAL HISTORY : Hypercholesterolemia. Hypertension. Stroke. Lymphoma. Chronic obstructive pulmonary disease. SURGICAL HISTORY : Port placement. Back surgery. ENCOUNTER: Initial ACUITY: 2 days PAIN SCORE: Nonresponsive. LOCATION: Abdomen. MEASUREMENTS: LIVER: 16.5 cm length COMMON DUCT: 6 mm RIGHT KIDNEY: 11.1 x 5.5 x 6.2 cm LEFT KIDNEY: 11.1 x 5.4 x 6.2 cm SPLEEN: 11.9 cm length AORTA: 2.8cm maximal FINDINGS: LIVER: Normal echotexture without focal lesion or ductal dilatation. COMMON DUCT: No intraluminal mass or stone visualized. GALLBLADDER: Contains no stones, demonstrates no wall thickening or pericholecystic fluid. PANCREAS: Obscured by overlying bowel gas. RIGHT KIDNEY: No hydronephrosis, stone or mass. LEFT KIDNEY: No hydronephrosis, stone or mass. SPLEEN: No focal lesion. AORTA: Non aneurysmal. IVC: Within normal limits. MISCELLANEOUS: Moderate amount of ascites. PEG tube identified in the gastric lumen. CONCLUSION: 1. Moderate amount of peritoneal ascites. 2. Pancreas obscured by overlying bowel gas. 3. Otherwise negative. Faisal Tinajero MD on January 16, 2018 at 12:12 Board Certified Radiologist. This report was verified electronically.
--- NOTE | 2018-01-16 12:55 | HHI.PR ---
Addendum to Inpatient Note Addendum Reason: Additional Documentation Additional Information Chart review documentation No fevers WBC normal overnight Will sign off please call back if any change in clinical condition or questions. Mandie Briggs MD Jan 16, 2018 12:55
--- NOTE | 2018-01-16 13:03 | PD.CONS ---
cc: Bijan Graf MD HPI Service General Surgery Consult Requested By Dr. Hill Reason for Consult Tracheostomy tube placement Primary Care Physician Unknown History of Present Illness This is a 72 year old male with a past medical history of hypertension, dyslipidemia, CVA, COPD not on home oxygen and a new diagnosis of non-Hodgkin's lymphoma. He has received one dose of chemotherapy. The patient was intubated and extubated several days ago. He failed trial extubation. The patient was re -intubated. A General Surgery consultation has been requested for tracheostomy tube placement. Review of Systems ROS Limitations: Clinical Condition, Intubated Past Family Social History Past Medical History Hypertension Dyslipidemia CVA COPD not on home oxygen New diagnosis of Non-Hodgkin's lymphoma Past Surgical History Port placement Back surgery about 5-6 years ago Reported Medications None Allergies: Coded Allergies: hydrocodone (Verified Adverse Reaction, Mild, 12/22/17) Hallucinations Active Ordered Medications Current Medications Medications (Trade) Dose Ordered Sig/Candace Route Start Time Stop Time Status Last Admin (NS Flush) 2 ml UNSCH PRN IV FLUSH 12/22/17 18:15 (NS Flush) 2 ml BID IV FLUSH 12/22/17 21:00 01/16/18 08:32 (Zofran Inj) 4 mg Q6H PRN IVP 12/22/17 18:15 01/01/18 10:02 (Narcan Inj) 0.4 mg UNSCH PRN IV PUSH 12/22/17 18:15 (Milk Of Magnesia Liq) 30 ml Q12H PRN PO 12/22/17 18:15 (Lactulose Liq) 30 ml DAILY PRN PO 12/22/17 18:15 (Ambien) 5 mg HS PRN PO 12/22/17 20:15 01/15/18 20:30 (Megace Liq) 800 mg DAILY PO 12/23/17 09:00 01/16/18 08:32 (Symbicort 160-4.5 Mcg Inh) 1 puff Q12HR INH 12/22/17 21:00 01/07/18 09:00 (Lipitor) 80 mg DAILY PO 12/23/17 09:00 Future Hold 01/08/18 08:32 (Theragran) 1 tab DAILY PO 12/23/17 09:00 01/16/18 08:32 (Heparin Central Flush) 500 units UNSCH IV FLUSH 12/22/17 20:30 (NS Flush) 5 ml UNSCH PRN IVF 12/22/17 20:30 (Heparin Central Flush) 250 units UNSCH PRN IV FLUSH 12/22/17 20:30 12/27/17 20:27 (D50w (Vial) Inj) 50 ml UNSCH PRN IV PUSH 12/22/17 20:30 (Glucagon Inj) 1 mg UNSCH PRN OTHER 12/22/17 20:30 (Robitussin Dm 200-20 Mg/10 ml Liq) 10 ml Q4H PRN PO 12/22/17 21:00 12/26/17 18:27 (Tessalon) 100 mg TID PRN PO 12/25/17 12:00 (Benadryl) 25 mg Q4H PRN PO 12/31/17 16:30 (Tums Chew) 500 mg Q12HR PRN CHEW 12/31/17 16:15 01/01/18 05:27 (Deltasone) 10 mg BID PO 01/01/18 21:00 01/16/18 08:32 (Peridex 0.12% Liq) 15 ml BID@08,20 MT 01/01/18 20:00 01/16/18 08:00 (Brethine Inj) 1 mg UNSCH PRN SQ 01/01/18 17:00 (NovoLOG SUPPLEMENTAL SCALE) 1 Q6HR SQ 01/07/18 18:00 01/16/18 00:48 (Colace Liq) 100 mg Q12HR OG-TUBE 01/07/18 21:00 01/16/18 08:32 (NS Flush) 5 ml UNSCH PRN IV FLUSH 01/08/18 18:00 (Heparin Central Flush) 250 units UNSCH PRN IV FLUSH 01/08/18 18:00 (Heparin Central Flush) 500 units UNSCH IV FLUSH 01/08/18 18:00 (Tylenol 650 Mg/ 20 ml Liq) 650 mg Q6H PRN G-TUBE 01/09/18 10:00 (Prevacid Odt) 30 mg BID G-TUBE 01/09/18 21:00 01/16/18 08:32 (Albuterol Neb) 2.5 mg Q2HR NEB PRN NEB 01/09/18 10:00 (Tears Naturale Opth Soln) 1 drop Q8HR EACH EYE 01/09/18 14:00 01/16/18 05:59 (Heparin Inj) 5,000 units Q8HR SQ 01/09/18 14:00 Future Hold 01/16/18 05:58 (Aspirin Chew) 81 mg DAILY CHEW 01/10/18 11:00 01/16/18 08:32 Dexmedetomidine HCl 1000 mcg/ Sodium Chloride 250 ml @ 4.76 mls/hr TITRATE PRN IV 01/10/18 13:45 01/15/18 20:29 Sodium Chloride 1,000 ml @ 0 mls/hr Q0M PRN OTHER 01/11/18 11:53 (Heparin Inj) 8,000 units UNSCH PRN IV FLUSH 01/11/18 12:00 Sodium Chloride 1,000 ml @ 200 mls/hr Q5H PRN IV 01/11/18 11:53 Sodium Chloride 1,000 ml @ 0 mls/hr Q0M PRN OTHER 01/11/18 11:53 (Mannitol Inj) 12.5 gm UNSCH PRN IV 01/11/18 12:00 Albumin Human 100 ml @ 60 mls/hr UNSCH PRN IV 01/11/18 12:00 (NS Flush) 5 ml UNSCH PRN IV FLUSH 01/11/18 12:00 (Heparin Inj) UNSCH PRN .XX 01/11/18 12:00 (Gentamicin Inj) 20 mg UNSCH PRN OTHER 01/11/18 12:00 (Zofran Inj) 4 mg UNSCH PRN IV PUSH 01/11/18 12:00 (Tylenol) 650 mg UNSCH PRN PO 01/11/18 12:00 (Benadryl) 25 mg UNSCH PRN PO 01/11/18 12:00 (Nitrostat Sl) 0.4 mg UNSCH PRN SL 01/11/18 12:00 (Catapres) 0.1 mg UNSCH PRN PO 01/11/18 12:00 (Epogen Inj) 4,000 units UNSCH PRN IV PUSH 01/11/18 12:00 (Gelfoam 12 Mm/7 Mm Top) 1 foam UNSCH PRN TOP 01/11/18 12:00 (Peridex 0.12% Liq) 15 ml BID@08,20 MT 01/13/18 08:00 01/15/18 20:00 (Duoneb Neb) 1 ampule Q6HR WHILE AWAKE NEB NEB 01/13/18 14:00 01/16/18 08:14 (fentaNYL INJ) 25 mcg Q1HR PRN IV PUSH 01/14/18 17:00 01/16/18 10:42 Norepinephrine Bitartrate 4 mg/ Sodium Chloride 250 ml @ 7.5 mls/hr TITRATE PRN IV 01/14/18 18:45 01/16/18 01:06 (Reglan Inj) 5 mg Q8HR IV PUSH 01/15/18 15:00 01/16/18 05:58 (Senna Liq) 8.8 mg BID J-TUBE 01/15/18 21:00 01/16/18 08:39 (Free Water) VOLUME OF WATER: ( 300 ) ML Q6HR G-TUBE 01/15/18 18:00 01/16/18 11:29 Propofol 100 ml @ 2.922 mls/ hr TITRATE PRN IV 01/15/18 23:45 01/16/18 12:04 (ZyPREXA) 10 mg Q8H PO 01/16/18 10:00 01/16/18 10:31 (Proamatine) 10 mg Q8H PO 01/16/18 09:00 01/16/18 08:40 Family History Noncontributory Social History at bedside able to answer Denies tobacco use Phillip ETOH use Lives at home with ; was driving prior to hospitalization Physical Exam Vital Signs Vital Signs Date Time Temp Pulse Resp B/P (MAP) Pulse Ox O2 Delivery O2 Flow Rate FiO2 01/16/18 12:00 99 35 01/16/18 08:18 35 01/16/18 08:18 98 35 01/16/18 06:00 89 01/16/18 04:20 16 01/16/18 04:11 94 30 01/16/18 04:00 94 01/16/18 04:00 35 01/16/18 04:00 98.7 128 17 129/90 (103) 94 01/16/18 02:00 98 01/16/18 01:06 100 116/76 01/16/18 00:36 99 35 01/16/18 00:00 98.7 128 17 129/90 (103) 94 01/16/18 00:00 35 01/16/18 00:00 132 01/15/18 22:00 92 01/15/18 20:49 97 35 01/15/18 20:00 98.9 92 25 123/63 (83) 95 01/15/18 20:00 35 01/15/18 20:00 92 01/15/18 18:00 104 01/15/18 16:06 100 35 01/15/18 16:00 35 01/15/18 16:00 98.0 90 20 124/68 (86) 97 01/15/18 16:00 100 01/15/18 14:09 97 35 01/15/18 14:00 100 Physical Exam GENERAL: 72 year old male critically ill resting in bed on mechanical ventilation; slightly agitated SKIN: Warm and dry. HEAD: Atraumatic. Normocephalic. EYES: Pupils equal and round. No scleral icterus. No injection or drainage. ENT: No nasal bleeding or discharge. Mucous membranes pink and moist. NECK: Trachea midline. Thin neck ; palpable trach. CARDIOVASCULAR: Regular rate and rhythm. RESPIRATORY: No accessory muscle use. Clear to auscultation. Breath sounds equal bilaterally. GASTROINTESTINAL: Abdomen soft, non-tender, nondistended. G/J tube in place. MUSCULOSKELETAL: Extremities without clubbing, cyanosis, or edema. No obvious deformities. NEUROLOGICAL: Sedated---unable to examine. PSYCHIATRIC: Unable to examine. Laboratory Laboratory Tests Test 01/16/18 05:45 White Blood Count 13.8 Red Blood Count 2.94 Hemoglobin 8.5 Hematocrit 25.4 Mean Corpuscular Volume 86.3 Mean Corpuscular Hemoglobin 29.0 Mean Corpuscular Hemoglobin Concent 33.6 Red Cell Distribution Width 18.6 Platelet Count 381 Mean Platelet Volume 9.6 Neutrophils (%) (Auto) 93.5 Lymphocytes (%) (Auto) 2.3 Monocytes (%) (Auto) 3.9 Eosinophils (%) (Auto) 0.0 Basophils (%) (Auto) 0.3 Neutrophils # (Auto) 12.9 Lymphocytes # (Auto) 0.3 Monocytes # (Auto) 0.5 Eosinophils # (Auto) 0.0 Basophils # (Auto) 0.0 CBC Comment AUTO DIFF Differential Total Cells Counted 100 Neutrophils % (Manual) 84 Band Neutrophils % 7 Lymphocytes % 6 Monocytes % 3 Neutrophils # (Manual) 12.6 Differential Comment FINAL DIFF MANUAL Platelet Estimate NORMAL Platelet Morphology Comment NORMAL Blood Urea Nitrogen 133 Creatinine 4.62 Random Glucose 115 Albumin 1.6 Calcium Level 8.0 Phosphorus Level 4.7 Magnesium Level 2.7 Sodium Level 150 Potassium Level 4.3 Chloride Level 118 Carbon Dioxide Level 19.6 Anion Gap 12 Estimat Glomerular Filtration Rate 13 Prealbumin 25 Date/Time Source Procedure Growth Status 01/01/18 17:57 Blood Peripheral Aerobic Blood Culture - Final NO GROWTH IN 5 DAYS Complete 01/01/18 17:57 Blood Peripheral Anaerobic Blood Culture - Final NO GROWTH IN 5 DAYS Complete 12/28/17 12:15 Fluid Pleural Fluid Fungal Smear - Final NO FUNGAL ELEMENTS SEEN. Resulted 12/28/17 12:15 Fluid Pleural Fluid Fungal Culture - Preliminary NO GROWTH IN 2 WEEKS Resulted 01/01/18 17:15 Sputum Endotracheal Gram Stain - Final Complete 01/01/18 17:15 Sputum Endotracheal Sputum Culture - Final HEAVY GROWTH NORMAL RESPIRATORY LISA Complete 01/01/18 17:15 Urine Catheterized Urine Urine Culture - Final NO GROWTH IN 48 HOURS. Complete Result Diagram: 01/16/18 0545 01/16/18 0545 Assessment and Plan Assessment and Plan 72 year old male with newly diagnosed non-Hodgkin's lymphoma; VDRF in need of tracheostomy tube placement -NPO -Continue to hold anticoagulation -Will plan for bedside trach placement today -Obtain consents -Discussed with at bedside the procedure, risks and benefits -Discussed with Dr. Hill Attending Note - Dr. Graf Chest clear Neck supple with easily identified landmarks Abdomen soft OK for trach today The exam, history, and the medical decision-making described in the above note were completed with the assistance of the mid-level provider. I reviewed and agree with the findings presented. I attest that I had a [id number] encounter with the patient on the same day, and personally performed and documented my assessment and findings in the medical record. Discussed Condition With Dr. Homar Jenkins RN Seema Galan/First Rebecca GUTIERREZ Jan 16, 2018 13:03 Bijan Graf MD Jan 16, 2018 15:01
[2018-01-16] MEDS ORDERED: MIDAZOLAM HCL 5 MG/ML VIAL (1 ML) ONE (13:58)
[2018-01-16] MEDS ORDERED: ROCURONIUM INJ 50 MG/5 ML VIAL ONE (13:59)
[2018-01-16] MEDS ORDERED: ROCURONIUM INJ 100 MG/10 ML VIAL IV ONE (14:00)
[2018-01-16] MEDS ORDERED: MIDAZOLAM HCL 5 MG/5 ML VIAL IV PUSH ONE (14:00)
--- NOTE | 2018-01-16 15:24 | MP ---
cc: Bijan Graf MD DATE OF OPERATION: 01/16/2018 DATE OF PROCEDURE: 01/16/2018 PROCEDURE PERFORMED: Percutaneous tracheostomy placement. PREOPERATIVE DIAGNOSES: Ventilator dependence with lymphoma, cerebrovascular accident, chronic obstructive pulmonary disease with need for tracheostomy placement for long-term vent management. POSTOPERATIVE DIAGNOSES: Ventilator dependence with lymphoma, cerebrovascular accident, chronic obstructive pulmonary disease with need for tracheostomy placement for long-term vent management. ANESTHESIA: IV sedation. COMPLICATIONS: None. DRAINS: None. SPECIMENS: None. DESCRIPTION OF PROCEDURE: Please see Dr. Bean's dictation for the bronchoscopic portion of the procedure. While setting up for the tracheostomy, Dr. Bean performed bronchoscopy and with irrigation cleansed the patient's tracheobronchial tree of secretions. The patient's neck was then prepped and draped. Timeout was taken confirming the correct patient, site, and procedure to be performed. The skin was infiltrated with local anesthetic and a small transverse incision was made 2 fingerbreadths above the sternal notch. The angiocatheter was inserted and under bronchoscopic direct visualization, after withdrawing the endotracheal tube to approximately 18 cm, the needle and angiocatheter were seen to come into the trachea. The needle was withdrawn and the angiocatheter advanced. A guidewire was passed down the angiocatheter and was seen to head toward the clem. The angiocatheter was removed. A tracheal punch was used to dilate up the tract. The punch was removed and the white catheter guide and Blue Rhino were passed over the guidewire. These were seen to pass directly into the trachea by direct bronchoscopic visualization. The Blue Rhino was removed and the white catheter guide and green guidewire were left behind. The 28-Sudanese tracheostomy guide, which had been placed into the percutaneous tracheostomy tube, were then both passed over the white catheter guide and green guidewire. They were seen to pass into the trachea by direct bronchoscopic visualization. The guidewire, white catheter guide, and 28-Sudanese tracheostomy guide were all removed simultaneously. The bronchoscope was then placed into the tracheostomy tube and the tube was seen to be in the trachea. The balloon was inflated, the obturator was placed, and the circuit switched over. The tracheostomy tube was fixed into place with four 2-0 Prolene sutures. A tracheostomy Velcro was applied to further secure the tracheostomy tube in place and a trach dressing was applied. There was good end-tidal CO2 after the circuit was switched over, there was no decrease in saturation during the procedure. The patient tolerated the procedure well. MD GRACIA Dunaway/FREDY , 03:05 PM , 03:22 PM REMIGIO
[2018-01-16] MEDS: ALBUMIN 25% INJ 100 ML IV PRN ×2 (15:30→16:05)
[2018-01-16] MEDS: MANNITOL 12.5 GM/50 ML VIAL IV PRN ×4 (15:30→15:50)
--- NOTE | 2018-01-16 15:56 | RADRPT ---
EXAM DATE/TIME: 01/16/2018 15:02 [facility] COMPARISON: CHEST SINGLE AP, January 16, 2018, 4:51. INDICATIONS : Post tracheostomy placement. MEDICAL HISTORY : Hypercholesterolemia. Hypertension. Stroke. Lymphoma. Chronic obstructive pulmonary disease. SURGICAL HISTORY : Port placement. Back surgery ENCOUNTER: Initial ACUITY: 1 day PAIN SCORE: Non-responsive. LOCATION: Bilateral chest FINDINGS: Interval placement of tracheostomy, in good position. Right internal jugular [id number] catheter tip in the distal superior vena cava. Left subclavian catheter tip in the proximal superior vena cav a. Hazy airspace opacities in the right lung are stable. Left lower lung consolidation with loss of delineation left hemidiaphragm is stable. Heart is normal size. CONCLUSION: Tracheostomy in good position. Stable bilateral airspace opacities. Siva Cooley MD on January 16, 2018 at 15:53 Board Certified Radiologist. This report was verified electronically.
--- NOTE | 2018-01-16 17:36 | HHI.PR ---
Subjective Remarks Was extubated and reintubated . Now on FIO2 35 % and PEEP at 5.Renal functions deteriorated . X ray chest shows Bilateral infiltrates. Poor output.Has need for dialysis and need a Trach . Vascath to be placed today. Objective Vital Signs Date Time Temp Pulse Resp B/P (MAP) Pulse Ox O2 Delivery O2 Flow Rate FiO2 01/16/18 15:01 99 100 01/16/18 14:00 82 01/16/18 12:00 99 35 01/16/18 12:00 88 01/16/18 10:00 94 01/16/18 08:18 35 01/16/18 08:18 98 35 01/16/18 08:00 90 01/16/18 06:00 89 01/16/18 04:20 16 01/16/18 04:11 94 30 01/16/18 04:00 94 01/16/18 04:00 35 01/16/18 04:00 98.7 128 17 129/90 (103) 94 01/16/18 02:00 98 01/16/18 01:06 100 116/76 01/16/18 00:36 99 35 01/16/18 00:00 98.7 128 17 129/90 (103) 94 01/16/18 00:00 35 01/16/18 00:00 132 01/15/18 22:00 92 01/15/18 20:49 97 35 01/15/18 20:00 98.9 92 25 123/63 (83) 95 01/15/18 20:00 35 01/15/18 20:00 92 01/15/18 18:00 104 I/O 01/15/18 01/15/18 01/15/18 01/16/18 01/16/18 01/16/18 07:00 15:00 23:00 07:00 15:00 23:00 Intake Total 2383 ml 1125 ml 100 ml Output Total 500 ml 750 ml 650 ml Balance 1883 ml 375 ml -650 ml 100 ml IV Total 1100 ml 100 ml Tube Feeding 1283 ml 625 ml Other 500 ml Output Urine Total 400 ml 350 ml 250 ml Stool Total 100 ml 400 ml 400 ml Result Diagram: 01/16/18 0545 01/16/18 0545 Procedures PEG tube placement. Bone Marrow Biopsy 12/25/17 Objective Remarks General appearance: This elderly white male is , on vent support. HEENT: Head normocephalic. Pupils reactive. Throat was clear. Neck: No bruits or thyroid enlargement or lymphadenopathy. Chest: Distant breath sounds with few crackles at both lung bases.Occ wheezes bilateral. Cardiovascular: The heart sounds are regular, S1 and S2. No murmur. No S3. Abdomen: Is soft, benign. No masses. Extremities: 2 + edema. Pt is sedated.Lethargic. Assessment and Plan Assessment and Plan IMPRESSION: 1. Bibasilar pleural effusions with atelectasis. 2. History of hypertension. 3. Hyperlipidemia. 4. COPD, emphysema. 5. History of Anaplastic NHL . 6. Respiratory Failure, Recurrent Plan : 1. Cont Vent support A/C PC rate 12 FIo2 35 % 2 For dialysis today 3. Prednisone 10 mg bid 4. Nebs qid , duoneb. 5. Continue Tube feeds with Nephro 6. CXR CBC,BMP in am 7. Propofol drip for sedation 8. D/W family at length Katiuska Blevins MD Jan 16, 2018 17:36
--- NOTE | 2018-01-16 19:09 | PD.PROCEDR ---
Procedure Note Procedure Procedure: Diagnostic Fiberoptic Bronchoscopy Diagnosis: Chronic respiratory failure Indications: Need for placement of percutaneous dilation tracheostomy Consent: Written consent was obtained Anesthesia: Versed 10 mg IV, rocuronium 100 mg's IV Description of the Procedure: The patient was sedated and mechanically ventilated. The patient was placed on 100% FIO2 and a volume control mode of ventilation. The fiberoptic bronchoscopy was inserted via oral endotracheal tube. The trachea, right and left mainstem bronchi, and sub-segmental bronchi were evaluated. The endobronchial anatomy was normal. At this point, the percutaneous dilation tracheostomy procedure was performed. The needle, guidewire, dilator, and tracheostomy were all performed under direct bronchoscopic guidance and visualization. Once the tracheostomy was in place, the bronchoscope was inserted through the tracheostomy, and the lumen of the tracheostomy was confirmed in the lumen of the trachea prior to any positive pressure ventilation. Findings: Minimal secretions in all lung clark. These were aggressively suctioned. BAL samples: No samples were sent. The patient tolerated the procedure well with no hemodynamic instability or hypoxia. There were no immediate complications noted. At the conclusion of the procedure, the patient was placed back on their pre-procedure ventilatory settings. There was minimal EBL. A chest x-ray has been ordered. I personally performed the procedure. Edi Hill MD Jan 16, 2018 19:09
--- NOTE | 2018-01-16 19:11 | PD.PROCEDR ---
Procedure Note Procedure Central Line Procedure Note Left subclavian 14 Danish 20 cm dialysis catheter Diagnosis: Acute renal failure Indications: Acute renal failure requiring renal replacement therapy in the intensive care unit Consent: Obtained Anesthesia: Versed IV Description of the Procedure: The patient was placed in the supine, mild- Trendelenburg position. The area was prepped and draped sterilely. A 19g needle was inserted under negative pressure aspiration and dark venous blood was obtained. A guidewire was inserted easily without resistance. A small incision was made using a #11 blade. Using a modified Seldinger technique, the dilator and 14 Danish, 20 cm catheter were advanced over the guidewire without resistance. All ports were aspirated and flushed, and had brisk blood return. The line was secured at the skin using 2-0 silk interrupted sutures. A Biopatch and Transparent sterile dressing were applied. There were no immediate complications noted. There was minimal EBL. The patient tolerated the procedure well. Ultrasound guidance was not used for this procedure Suture was chosen to secure the device to the skin as opposed to a StatLock device because the StatLock device was not compatible with the size and configuration of the dialysis catheter. A Chest x-ray has been ordered. I personally performed the procedure. Edi Hill MD Jan 16, 2018 19:11
[2018-01-17] VITALS (17 sets, daily range): BP systolic 121–178; BP diastolic 66–95; PULSE 73–111; RESP 17–21; TEMP 97.6–98.5; O2SAT 94–100
[2018-01-17] MEDS: MIDODRINE 5 MG TAB PO SCH ×3 (01:26→17:16)
[2018-01-17] MEDS: PROPOFOL 1000 MG/100 ML IV PRN ×2 (01:27→05:42)
[2018-01-17] MEDS: OLANZapine 10 MG TAB PO SCH ×3 (01:33→17:17)
[2018-01-17 05:28] LABS: HEMATOCRIT 22.4 % (39.0-51.0); HEMOGLOBIN 7.7 GM/DL (13.0-17.0); MEAN CELL VOLUME 86.8 FL (80.0-100.0); MEAN CORPUSCULAR HEMOGLOBIN 29.7 PG (27.0-34.0); MEAN CORPUSCULAR HGB CONC 34.2 % (32.0-36.0); MEAN PLATELET VOLUME 9.6 FL (7.0-11.0); PLATELET COUNT 314 TH/MM3 (150-450); RED BLOOD COUNT 2.58 MIL/MM3 (4.50-5.90); RED CELL DISTRIBUTION WIDTH 18.3 % (11.6-17.2); WHITE BLOOD COUNT 10.4 TH/MM3 (4.0-11.0)
[2018-01-17] MEDS: METOCLOPRAMIDE HCL 10 MG/2 ML VIAL IV PUSH SCH ×3 (05:41→21:23)
[2018-01-17] MEDS: ARTIFICIAL TEARS OPTH SOLN 15 ML BTL EACH EYE SCH ×3 (05:42→21:24)
[2018-01-17] MEDS: FREE WATER G-TUBE SCH ×4 (05:42→17:16)
[2018-01-17 05:50] LABS: BICARBONATE 19.7 MEQ/L (21.0-32.0); CALCIUM 8.1 MG/DL (8.5-10.1); CREATININE 4.54 MG/DL (0.60-1.30)
[2018-01-17] MEDS: INSULIN ASPART SUPPLEMENTAL SCALE SQ SCH ×4 (06:00→18:55)
[2018-01-17] MEDS: CHLORHEXIDINE 0.12% (ORAL KIT) 15 ML CUP MT SCH ×3 (07:31→20:00)
[2018-01-17] MEDS: RESP: ALBUTEROL 2.5 MG/IPRATROPIUM 0.5 MG NEB (SCH) NEB ×2 (07:52→13:17)
--- NOTE | 2018-01-17 07:57 | HHI.CCPN ---
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 On 12/25 patient received chemotherapy -CHOP regimen. Hospitalization further significant for PEG placement due to malnutrition and lack of appetite and thoracentesis for pleural effusion. Patient was being followed by pulmonary, cardiology and hematology services. Over the night patient had increased O2 requirements with high tube feed residual and concern for aspiration. A rapid response was called earlier this afternoon for worsening hypoxia despite NRM. Patient was emergently intubated and upon intubation he was found to have significant amount of tube feeds in the airway. An NG tube was placed on suction with 750 cc suctioned from the stomach. Patient was started on midazolam and fentanyl drips and phenylephrine for BP support. Patient was seen immediately on ICU arrival, 100% O2 with SPO2 100%. Patient requires 20 mics per minute of phenylephrine infusion. He is intubated and sedated, unresponsive. 01/02: No events over the night. Patient remains critically ill. He is currently sedated and intubated. He remains on phenylephrine at 80 mics per minute. FiO2 down to 0.6. T-max 98.6, I/O 1550/400. 01/03: Patient did well over the night. Norepinephrine weaned off. FiO2 currently at 0.5. Patient remains on a PEEP of 10. Sedation accomplished with propofol and fentanyl. Tmax 98.4. 01/04: Multiple episodes of diarrhea overnight. No C. difficile sent. Urine output decreased, 300 mL's over last 12 hours. Patient does not require any pressors, sedation is maintained with propofol at 30 and fentanyl at 150. During sedation vacation patient moves all extremities, agitated, but does not follow commands. Currently he is sedated and intubated. Morning chest x-ray reviewed, slight improvement in bibasilar infiltrates. 01/05: No events over the night. T-max of 98.6. Urine output 550 mL's over the last 24 hours. Ventilator on 0.4 FiO2. Sedation was stopped this morning, patient agitated moving all extremities but not following commands. Morning chest x-ray reviewed, no significant change compared to yesterday's, ET tube approximately 7 cm above clem. 01/06: Patient remains afebrile, on no pressors. Oxygenation down to 0.4 FiO2, but PEEP remains at 10. Trickle feeds started yesterday, still having residuals. Patient remains on low-dose propofol and fentanyl for sedation. Morning chest x-ray reviewed, still with bibasilar opacities, unchanged. 01/07: Remains sedated, orally intubated on mechanical ventilation. Fentanyl at 150 mics per minute decreased to 50 mics per minute. Abdomen remains distended. Tolerating tube feeds at 20 cc/h with residual 60 cc. 01/08: Sedated, orally intubated on mechanical ventilation. Had large amount of BM last night following Relistor. On tube feeds at 20 cc per hour. 01/09: Currently on propofol drip at 40 mcg/kg/min. Afebrile. GJ tube per IR yesterday. Tube feeds were restarted. at bedside. Continue to diuresis furosemide/albumin 01/10: Currently off all sedation. Transitioning to dexmedetomidine drip. Tolerating tube feeds via GJ tube. Positive BM. Creatinine up to 3.1. Blinks eyes to commands but not moving extremities. Withdraws to pain. 01/11: Afebrile. Long discussion with . Nephrology wishes to initiate hemodialysis today. Benefits and risks discussed. She wishes to wait another day to see if he has any significant recovery. Nephrology will give extra furosemide today. 01/12: More awake today. Follows commands. Eyes are open. Moves all 4 extremities spontaneously. does not wish to pursue hemodialysis today. Requesting decreasing furosemide drip to 2.5 mg/h due to "elevated BUN". 01/13: Intubated this a.m. due to acute hypoxic hypercapnic respiratory failure/ actively aspirating. Follow-up chest x-ray and ABG pending. Discussed with at bedside. A.m. laboratories all pending 01/14: Resting in bed in no acute distress. Long discussion with regarding worsening pleural effusions and need for hemodialysis. She will discuss with her family friend and Dr. Blevins. 01/15: Afebrile. Currently resting in bed in no acute distress. Long discussion with . Currently wishes to's second opinion for nephrology. We will performed today. 01/16: afebrile. failed trial of Precedex for agitation. now back on propofol. I started discussions about trach today: failed extubation and now 20kg up- will not successfully wean with current deconditioning, volume overload, renal failure, and likely large component of uremic encephalopathy. overall worsening renal function persists. Subjective 5: s/p trach yesterday. less agitated today. also s/p dialysis yesterday. no meaningful improvements in mental status. Objective Vital Signs Date Time Temp Pulse Resp B/P (MAP) Pulse Ox O2 Delivery O2 Flow Rate FiO2 01/17/18 06:00 95 01/17/18 04:00 97.6 17 139/66 (90) 99 01/17/18 04:00 100 01/13/18 08:26 Ventilator Intake and Output 01/17/18 01/17/18 01/18/18 08:00 16:00 00:00 Intake Total 920 ml Output Total 100 ml Balance 820 ml Result Diagram: 01/17/18 0500 01/17/18 0500 Imaging Last Impressions Chest X-Ray 01/15/18 0600 Signed Impressions: Service Date/Time: Monday, January 15, 2018 04:54 - CONCLUSION: Stable aeration Andres Drew MD Lower Extremity Ultrasound 01/15/18 0000 Signed Impressions: Service Date/Time: Monday, January 15, 2018 18:00 - CONCLUSION: Normal examination. Elbert Carrasquillo MD Abdomen X-Ray 01/15/18 0000 Signed Impressions: Service Date/Time: Monday, January 15, 2018 15:06 - CONCLUSION: Nonspecific, nonobstructive bowel gas pattern. PEG tube present. Andres Parekh MD Gastrostomy Tube Change 01/08/18 0000 Signed Impressions: Service Date/Time: Monday, January 08, 2018 14:35 - CONCLUSION: Conversion of the patient's existing gastrostomy tube to a gastrojejunostomy tube. Siva Bean Jr., MD Renal Ultrasound 01/05/18 0000 Signed Impressions: Service Date/Time: Friday, January 05, 2018 08:00 - CONCLUSION: Echogenic kidneys suggesting medical renal disease. Some ascites. Bilateral pleural effusions. Lee Mijares MD Head CT 01/05/18 0000 Signed Impressions: Service Date/Time: Friday, January 05, 2018 11:41 - CONCLUSION: 1. No acute abnormality is seen. 2. Old lacunar infarct at the left basal ganglia. 3. Fluid in the mastoid air cells on the right. Andres Valeor MD Small Bowel X-Ray 01/03/18 0000 Signed Impressions: Service Date/Time: December 14:27 - CONCLUSION: 1. No leakage identified on injection through gastrostomy tube. No small bowel obstruction or significant dilatation. Elbert Carrasquillo MD Abdomen/Pelvis CT 01/02/18 0000 Signed Impressions: Service Date/Time: Tuesday, January 02, 2018 21:38 - CONCLUSION: 1. Free intraperitoneal air of unknown etiology. On the supine view most of the free air is around the gastrostomy tube and tip of the nasogastric tube as discussed above. 2. Mild to moderate ascites. Moderate anasarca. 3. Moderate bilateral effusions with basilar atelectasis. 4. Nonobstructing right renal calculus. Hay catheter in bladder. Elbert Carrasquillo MD Chest CT 12/30/17 0000 Signed Impressions: Service Date/Time: Saturday, December 30, 2017 21:13 - CONCLUSION: 1. Free intraperitoneal air in the upper abdomen of uncertain etiology. There is a gastrostomy present. 2. Moderate bilateral pleural effusions with compressive atelectasis. Patchy air space consolidation in the right upper lobe. 3. Moderate anasarca and ascites. 4. Findings called to the floor at the time of dictation. Elbert Carrasquillo MD Chest Ultrasound 12/27/17 0000 Signed Impressions: Service Date/Time: December 21:39 - CONCLUSION: Large left pleural effusion and would be amenable to thoracentesis. Frandy was made on the overlying skin. Andres Parekh MD Bone Biopsy CT 12/25/17 1142 Signed Impressions: Service Date/Time: Monday, December 25, 2017 12:32 - CONCLUSION: 1. Uncomplicated CT guided bone marrow aspirate. 2. Uncomplicated CT guided bone marrow biopsy. Lee Mijares MD CT Angiography 12/25/17 0000 Signed Impressions: Service Date/Time: Monday, December 25, 2017 09:26 - CONCLUSION: 1. No CT evidence for pulmonary artery embolism. 2. Moderate to large bilateral pleural effusions with associated compressive atelectasis at the lung bases. 3. 8mm nodule in the right middle lobe. Followup CT examination may be performed at 6 months to document stability if this has not been evaluated previously. 4. Very mildly prominent mediastinal and hilar nodes and partially imaged upper abdominal lymphadenopathy in this patient with history of lymphoma. Miguel Ashton MD Objective Remarks General -72-year-old male currently orotracheally intubated HEENT - pupils are equal, reactive about 3 mm bilaterally, sclerae are anicteric , neck is supple, no rigidity CV -RRR with ectopy. sinus. Chest -equal chest rise, Cexbwd-[id number]-[id number] right chest -site remains clean. prvc fio2 40% Abdomen - soft, obese, protuberant. + GJ tube. Extremities - 4+ edema, anasarca, + peripheral pulses, warm, no cyanosis Neuro - intubated, pupils equal and reactive, grimaces to pain all simple commands. Moves head side to side. Date of Insertion: Jan 01, 2018 Date of Removal: Jan 12, 2018 A/P Assessment and Plan Assessment: 72yM with new diagnosis of lymphoma, course complicated by recurrent hypoxic respiratory failure, severe volume overload, acute kidney injury, multiorgan failure, shock, and severe acute protein calorie malnutrition. prognosis at this point is poor. I do not think he will survive this illness. Family continues to press for aggressive measures and FULL CODE status. now s/p trach and vascath. Now that he is on dialysis, his acute medical problems are controlled- he certainly will need weaning from mechanical ventilation and strengthening before his lymphoma can be managed. will begin seeking placement for him. 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 still agitated Goal of RASS -2 - [address] brain 01/05 revealed old left basal CVA. hold on MRI. likely uremic encephalopathy will start zyprexa 10mg po q8h to help with agitation. wean propofol as tolerated. CV: Hypertension Dyslipidemia 2D echocardiogram revealed EF 65-70%. Tricuspid regurgitation. PA P 38 mmHg He is on aspirin 81 mg p.o. daily continue midodrine in an effort to minimize highly potent iv vasopressors. Resp: Acute hypoxic hypercapnic respiratory failure secondary to aspiration pneumonia Right middle lobe pulmonary nodule 8 mm recommend 6 month follow-up CT chest COPD PRVC, full support. 35% fio2. daily SBT. Ventilator bundle Patient written for budesonide/formoterol 160/4.5 2 puffs twice daily. Albuterol/ipratropium aerosols every 6 hours with albuterol aerosols every 2 hours as needed dyspnea On prednisone [address] Blevins/pulmonology is following s/p trach 01/[address] Graf GI: Status post GJ conversion by IR 01/08 Hypoalbuminemia Acute protein calorie malnutrition - severe. Lansoprazole 30 mg twice daily for GI prophylaxis Docusate sodium liquid 100 mg twice daily for bowel regimen On Megestrol 800 mg daily for anorexia Nutrition recommends vital 1.5 goal 60 cc an hour.. On Nepro at 50 cc an hour due to renal failure prealbumin 25 on 01/16. check prealbumin qweek. : Hay catheter for accurate I's and O's in a critically ill patient: keep. needing accurate i/o's in acute oliguric renal failure. Endo: Sliding scale insulin to maintain euglycemia/low regimen every 6 hours TSH is 1.18 Renal: Acute kidney injury likely secondary to sepsis/ATN Right-sided nephrolithiasis Urine eosinophils negative. Renal ultrasound reveals medical renal disease and prior CT abdomen/pelvis revealed non-obstructing right renal stones. Followed by nephrology Avoid nephrotoxic medication Off furosemide drip. Currently in free water 300 cc every 6 and chlorothiazide 500 mg IV 1. Nephrology to guide renal therapies. 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 Followed by hematology. currently not stable enough for chemotherapy. would be a candidate if he ever stabilized, but I do not see this as a functional reality. unlikely to tolerate future chemotherapies. No indication for transfusion of blood products at this time ID: Followed by infectious disease for prescribing medication FEN: Hypernatremia Free water 300 cc every 6 hours Replace electrolytes as clinically indicated MSK: Sacral decubitus ulcer Wound care management Access Left IJ CVL placed 01/01 - 01/10 Right Fnnqrz-m-Dpwd placed 12/20/17 Prophylaxis -GI -lansoprazole -DVT -SCD/heparin subcu Edi Hill MD Jan 17, 2018 07:57
[2018-01-17] MEDS: DOCUSATE SODIUM 100 MG/10 ML UDC OG-TUBE SCH ×2 (08:06→21:23)
[2018-01-17] MEDS: MEGESTROL ACETATE SUSP 400 MG/10 ML CUP PO SCH (08:06)
[2018-01-17] MEDS: LANSOPRAZOLE SOLUTAB 30 MG TAB G-TUBE SCH ×2 (08:09→21:23)
[2018-01-17] MEDS: oxyCODONE HCL ORAL CONC 5 MG/0.25 ML SYRINGE PO SCH ×4 (08:09→21:22)
[2018-01-17] MEDS: predniSONE 10 MG TAB PO SCH ×2 (08:09→21:23)
[2018-01-17] MEDS: SENNOSIDES SYRUP 8.8 MG/5 ML CUP J-TUBE SCH ×2 (08:10→21:23)
[2018-01-17] MEDS: MULTIVITAMIN TAB PO SCH (08:10)
[2018-01-17] MEDS: SODIUM CHLORIDE 0.9% FLUSH 10 ML FLUSH IV FLUSH SCH ×2 (08:10→21:24)
[2018-01-17] MEDS: ASPIRIN 81 MG CHEW TAB CHEW SCH (08:11)
[2018-01-17] MEDS: BUDESONIDE-FORMOTEROL 160/4.5 MCG INHALER INH SCH ×2 (08:27→21:00)
--- NOTE | 2018-01-17 09:53 | HHI.NPPN ---
Subjective Renal Failure: Acute Interval History He had trach placed yesterday. Dialyzed for first time as well, 3L UF. Seen during bedside dialysis today. He is on low dose levophed for BP support during HD. Currently oliguric. Hypernatremia has improved. (Larissa Amin) Review of Systems General General Remarks unable to obtain (Larissa Amin) Objective Data Data Vital Signs Date Time Temp Pulse Resp B/P (MAP) Pulse Ox O2 Delivery O2 Flow Rate FiO2 01/17/18 08:00 96 01/17/18 07:54 100 40 01/17/18 06:00 95 01/17/18 04:00 97.6 90 17 139/66 (90) 99 01/17/18 04:00 100 01/17/18 04:00 82 01/17/18 03:40 97 40 01/17/18 02:00 73 01/17/18 00:03 98 40 01/17/18 00:00 98.3 88 20 138/69 (92) 97 01/17/18 00:00 73 01/17/18 00:00 100 01/16/18 22:00 73 01/16/18 20:52 98 40 01/16/18 20:00 100 01/16/18 20:00 97.8 66 12 144/70 (94) 100 01/16/18 20:00 88 01/16/18 18:00 98.3 90 14 140/74 (96) 100 01/16/18 18:00 100 01/16/18 18:00 94 01/16/18 16:00 90 01/16/18 15:01 99 100 01/16/18 14:00 82 01/16/18 12:00 100 01/16/18 12:00 98.0 88 13 126/69 (88) 96 01/16/18 12:00 99 35 01/16/18 12:00 88 01/16/18 10:00 94 (Larissa Amin) -: 01/17/18 0500 01/17/18 0500 Imaging Last Impressions Chest X-Ray 01/16/18 0600 Signed Impressions: Service Date/Time: Tuesday, January 16, 2018 04:51 - CONCLUSION: No significant change Andres Drew MD Abdomen Ultrasound 01/16/18 0000 Signed Impressions: Service Date/Time: Tuesday, January 16, 2018 09:47 - CONCLUSION: 1. Moderate amount of peritoneal ascites. 2. Pancreas obscured by overlying bowel gas. 3. Otherwise negative. Faisal Tinajero MD Lower Extremity Ultrasound 01/15/18 Signed Impressions: Service Date/Time: Monday, January 15, 2018 18:00 - CONCLUSION: Normal examination. Elbert Carrasquillo MD Abdomen X-Ray 01/15/18 Signed Impressions: Service Date/Time: Monday, January 15, 2018 15:06 - CONCLUSION: Nonspecific, nonobstructive bowel gas pattern. PEG tube present. Andres Parekh MD Gastrostomy Tube Change 01/08/18 0000 Signed Impressions: Service Date/Time: Monday, January 08, 2018 14:35 - CONCLUSION: Conversion of the patient's existing gastrostomy tube to a gastrojejunostomy tube. Siva Bean Jr., MD Renal Ultrasound 01/05/18 0000 Signed Impressions: Service Date/Time: Friday, January 05, 2018 08:00 - CONCLUSION: Echogenic kidneys suggesting medical renal disease. Some ascites. Bilateral pleural effusions. Lee Mijares MD Head CT 01/05/18 0000 Signed Impressions: Service Date/Time: Friday, January 05, 2018 11:41 - CONCLUSION: 1. No acute abnormality is seen. 2. Old lacunar infarct at the left basal ganglia. 3. Fluid in the mastoid air cells on the right. Andres Valero MD Small Bowel X-Ray 01/03/18 0000 Signed Impressions: Service Date/Time: December 14:27 - CONCLUSION: 1. No leakage identified on injection through gastrostomy tube. No small bowel obstruction or significant dilatation. Elbert Carrasquillo MD Abdomen/Pelvis CT 01/02/18 0000 Signed Impressions: Service Date/Time: Tuesday, January 02, 2018 21:38 - CONCLUSION: 1. Free intraperitoneal air of unknown etiology. On the supine view most of the free air is around the gastrostomy tube and tip of the nasogastric tube as discussed above. 2. Mild to moderate ascites. Moderate anasarca. 3. Moderate bilateral effusions with basilar atelectasis. 4. Nonobstructing right renal calculus. Hay catheter in bladder. Elbert Carrasquillo MD Chest CT 12/30/17 0000 Signed Impressions: Service Date/Time: Saturday, December 30, 2017 21:13 - CONCLUSION: 1. Free intraperitoneal air in the upper abdomen of uncertain etiology. There is a gastrostomy present. 2. Moderate bilateral pleural effusions with compressive atelectasis. Patchy air space consolidation in the right upper lobe. 3. Moderate anasarca and ascites. 4. Findings called to the floor at the time of dictation. Elbert Carrasquillo MD Chest Ultrasound 12/27/17 0000 Signed Impressions: Service Date/Time: December 21:39 - CONCLUSION: Large left pleural effusion and would be amenable to thoracentesis. Frandy was made on the overlying skin. Andres Parekh MD Bone Biopsy CT 12/25/17 1142 Signed Impressions: Service Date/Time: Monday, December 25, 2017 12:32 - CONCLUSION: 1. Uncomplicated CT guided bone marrow aspirate. 2. Uncomplicated CT guided bone marrow biopsy. Lee Mijares MD CT Angiography 12/25/17 0000 Signed Impressions: Service Date/Time: Monday, December 25, 2017 09:26 - CONCLUSION: 1. No CT evidence for pulmonary artery embolism. 2. Moderate to large bilateral pleural effusions with associated compressive atelectasis at the lung bases. 3. 8mm nodule in the right middle lobe. Followup CT examination may be performed at 6 months to document stability if this has not been evaluated previously. 4. Very mildly prominent mediastinal and hilar nodes and partially imaged upper abdominal lymphadenopathy in this patient with history of lymphoma. Miguel Ashton MD Tubes & Lines: Vas-Cath, Hay Tubes & Lines Comment LIJ VC Drip Comment propofol, levophed (Larissa AminP) Physical Exam General Appearance Remarks elderly, cachectic, sedated on vent (Larissa Amin TYRE FITTER) Eyes Eye Exam: Pupils Equal, Pupils Reactive (Larissa Amin B. TYRE FITTER) Neck Neck Exam: Neck Supple Neck Remarks new trach (placed 4/4), not bleeding (Larissa Amin B. TYRE FITTER) Pulmonary Resp Exam: Breath Sounds Equal, Decreased Bases Resp Remarks vented, on 40% FiO2. (Larissa Amin) Cardiology CV Exam: Regular, Normal Sinus Rhythm, Good Perfusion (Larissa AminP) Gastrointestinal/Abdomen GI Exam: Soft, Non-Tender, Bowel Sounds Present, Distended (Larissa Amin TYRE FITTER) Musculoskeletal MS Exam: Normal Tone, Unable to Ambulate (Larissa Amin TYRE FITTER) Integumentary Skin Exam: Warm, Dry (Larissa AminP) Extremeties Extremities Exam: Pedal Pulses Palpable, Moderate Edema, Pitting Edema, Dependent Edema (Larissa Amin TYRE FITTER) Neurologic Neuro Exam: Unresponsive, Sedated (Larissa Amin) VTE Prophylaxis Device: SCDs (Larissa Amin) Assessment/Plan Assessment Summary: CYNDI/Acute Renal Failure, Fluid/Volume Overload, Hypotension Electrolyte Assessment: Hypernatremia, Metabolic Acidosis Problem List: (1) Acute renal failure ICD Codes: N17.9 - Acute kidney failure, unspecified Status: Acute Plan: Normal renal function at baseline Renal failure onset 01/02, ATN most likely due to sepsis and hypotension. Vascath placed and HD initiated 01/16 with 3L fluid removal. Seen during bedside HD today on a 3K, BFR 250, 3L UF Repeat labs daily. HD if needed (most likely TTS schedule) He is oliguric Metabolic acidosis is improving. Await renal recovery. Prognosis is guarded to poor. On Levophed as needed to maintain MAP > 65mmHg; he is also on midodrine Avoid nephrotoxins. Avoid IVF. 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 s/p tracheostomy 01/16 Family has discussed in depth with ID, they want to monitor him off antibiotics thinking that may be affecting his kidneys and increase risk of nosocomial infections. Off cefepime and Flagyl. (Larissa Amin) Plan patient was seen and examined. Dialysis again today. Oliguric. Prognosis is guarded. Agree with above assessment and plan. (Tna Christensen MD) Larissa Amin Jan 17, 2018 09:53 Tan Christensen MD Jan 17, 2018 10:27
--- NOTE | 2018-01-17 10:05 | HHI.PR ---
Subjective Subjective Notes Unresponsive RN Dada at bedside with dialysis---receiving second treatment Objective Vitals/I&O Vital Signs Date Time Temp Pulse Resp B/P (MAP) Pulse Ox O2 Delivery O2 Flow Rate FiO2 01/17/18 08:00 40 01/17/18 08:00 98.5 96 17 132/71 (91) 100 01/13/18 08:26 Ventilator Labs Laboratory Tests Test 01/17/18 05:00 White Blood Count 10.4 Red Blood Count 2.58 Hemoglobin 7.7 Hematocrit 22.4 Mean Corpuscular Volume 86.8 Mean Corpuscular Hemoglobin 29.7 Mean Corpuscular Hemoglobin Concent 34.2 Red Cell Distribution Width 18.3 Platelet Count 314 Mean Platelet Volume 9.6 Blood Urea Nitrogen 116 Creatinine 4.54 Random Glucose 118 Calcium Level 8.1 Sodium Level 144 Potassium Level 4.2 Chloride Level 111 Carbon Dioxide Level 19.7 Anion Gap 13 Estimat Glomerular Filtration Rate 13 Date/Time Source Procedure Growth Status 01/01/18 17:57 Blood Peripheral Aerobic Blood Culture - Final NO GROWTH IN 5 DAYS Complete 01/01/18 17:57 Blood Peripheral Anaerobic Blood Culture - Final NO GROWTH IN 5 DAYS Complete 12/28/17 12:15 Fluid Pleural Fluid Fungal Smear - Final NO FUNGAL ELEMENTS SEEN. Resulted 12/28/17 12:15 Fluid Pleural Fluid Fungal Culture - Preliminary NO GROWTH IN 2 WEEKS Resulted 01/01/18 17:15 Sputum Endotracheal Gram Stain - Final Complete 01/01/18 17:15 Sputum Endotracheal Sputum Culture - Final HEAVY GROWTH NORMAL RESPIRATORY LISA Complete 01/01/18 17:15 Urine Catheterized Urine Urine Culture - Final NO GROWTH IN 48 HOURS. Complete Cardiovascular: Regular Lungs: Clear Abdomen: Other (G/J tube in place ) Extremities: No edema Narrative Exam Tracheostomy tube in place--- no drainage present; tracheostomy tube connect to mechanical ventilator A/P Assessment and Plan 72 year old male with newly diagnosed non-Hodgkin's lymphoma; VDRF in need of tracheostomy tube placement -POD1 percutaneous tracheostomy tube placement -No issues with trach overnight -Replace dressing today and PRN -Continue routine trach care -Restarted subq heparin -General Surgery will sign off; Please call with questions Attending Note - Dr. Graf Site clean and dry Stable Will see as needed. The exam, history, and the medical decision-making described in the above note were completed with the assistance of the mid-level provider. I reviewed and agree with the findings presented. I attest that I had a [id number] encounter with the patient on the same day, and personally performed and documented my assessment and findings in the medical record. Seema Urbina/First Rebecca GUTIERREZ Jan 17, 2018 10:05 Bijan Graf MD Jan 25, 2018 07:50
[2018-01-17] MEDS: HEPARIN SODIUM - IV 10,000 UNITS/10 ML VIAL PRN (11:23)
[2018-01-17] MEDS: GENTAMICIN SULFATE 20 MG/2 ML VIAL OTHER PRN (11:23)
--- NOTE | 2018-01-17 13:15 | HHI.PR ---
Subjective Remarks Was extubated and reintubated . Now on FIO2 35 % and PEEP at 5. X ray chest shows Bilateral infiltrates. Shakes head and no response to commands Had Dialysis done . 3 L out. Objective Vital Signs Date Time Temp Pulse Resp B/P (MAP) Pulse Ox O2 Delivery O2 Flow Rate FiO2 01/17/18 12:00 98 01/17/18 11:36 97 30 01/17/18 10:00 109 01/17/18 08:00 40 01/17/18 08:00 98.5 96 17 132/71 (91) 100 01/17/18 08:00 96 01/17/18 07:54 100 40 01/17/18 06:00 95 01/17/18 04:00 97.6 90 17 139/66 (90) 99 01/17/18 04:00 100 01/17/18 04:00 82 01/17/18 03:40 97 40 01/17/18 02:00 73 01/17/18 00:03 98 40 01/17/18 00:00 98.3 88 20 138/69 (92) 97 01/17/18 00:00 73 01/17/18 00:00 100 01/16/18 22:00 73 01/16/18 20:52 98 40 01/16/18 20:00 100 01/16/18 20:00 97.8 66 12 144/70 (94) 100 01/16/18 20:00 88 01/16/18 18:00 98.3 90 14 140/74 (96) 100 01/16/18 18:00 100 01/16/18 18:00 94 01/16/18 16:00 90 01/16/18 15:01 99 100 01/16/18 14:00 82 I/O 01/16/18 01/16/18 01/16/18 01/17/18 01/17/18 01/17/18 07:00 15:00 23:00 07:00 15:00 23:00 Intake Total 700 ml 920 ml Output Total 650 ml 3250 ml 100 ml 3000 ml Balance -650 ml -2550 ml 820 ml -3000 ml IV Total 100 ml 664 ml Tube Feeding 0 ml 256 ml Other 600 ml Output Urine Total 250 ml 250 ml 100 ml Stool Total 400 ml 0 ml Hemodialysis 3000 ml 3000 ml Result Diagram: 01/17/18 0500 01/17/18 0500 Procedures PEG tube placement. Bone Marrow Biopsy 12/25/17 Objective Remarks General appearance: This elderly white male is , on vent support. HEENT: Head normocephalic. Pupils reactive. Throat was clear. Neck: No bruits or thyroid enlargement or lymphadenopathy. Chest: Distant breath sounds with crackles at both lung bases.Occ wheezes bilateral. Cardiovascular: The heart sounds are regular, S1 and S2. No murmur. No S3. Abdomen: Is soft, benign. No masses. Extremities: 2 + edema. Pt is sedated.Lethargic. Assessment and Plan Assessment and Plan IMPRESSION: 1. Bibasilar pleural effusions with atelectasis. 2. History of hypertension. 3. Hyperlipidemia. 4. COPD, emphysema. 5. History of Anaplastic NHL . 6. Respiratory Failure, Recurrent Plan : 1. Cont Vent support A/C PC rate 12 FIo2 30 % 2 For dialysis in am 3. Prednisone 10 mg bid 4. Nebs qid , duoneb. 5. Continue Tube feeds with Nephro 6. CBC,BMP in am 7. Hold sedation 8. D/W family at length Katiuska Blevins MD Jan 17, 2018 13:15
[2018-01-17] MEDS ORDERED: HALOPERIDOL LACTATE 5 MG/ML AMP IV ONE (14:15)
[2018-01-17] MEDS ORDERED: HALOPERIDOL LACTATE 5 MG/ML AMP IV PUSH PRN (18:00)
--- NOTE | 2018-01-17 19:19 | MB ---
cc: Jaquelin Garza MD DATE: 01/17/2018 REASON FOR CONSULTATION: Opinion regarding his change in mental status. HISTORY OF PRESENT ILLNESS: This is a 72-year-old man admitted on the , with a history of hypertension, hyperlipidemia, possible prior stroke, COPD, newly diagnosed anaplastic large cell non-Hodgkin's lymphoma, following with Dr. Suarez. He was transferred from [facility] on 12/23 for further treatment. On 12/25, he received chemotherapy, CHOP regimen. He had a PEG placed due to malnutrition and lack of appetite and a thoracentesis for pleural effusion. He was seen by pulmonary, cardiology, hematology. Over that evening, on the , he had a possible aspiration, placed on nonrebreather and intubated emergently, placed on Versed, fentanyl, phenylephrine for BP. Remained critically ill over the next few days. He was, I believe, intubated for a number of days, at least 8-9 days, then extubated. His states that once he was extubated, he was more alert, he was following commands. He was actually mouthing words to her, stating that he loved her. On the , it is noted that he was more awake, moving everything, eyes open, following commands. He has received 2 hemodialysis treatments thus far and then on 01/13, he was reintubated due to acute hypoxic hypercapnic respiratory failure with aspiration. He is being followed with Dr. Blevins. He had a tracheostomy on 01/16 as well as dialysis, but he has been somewhat agitated with continuous head movement, eyes open, mouth open, nonpurposeful movement without any following of commands. CURRENT MEDICATIONS IN THE HOSPITAL: Haldol 5 mg q. 4 p.r.n. for agitation, oxycodone 10 mg q. 4 hours via G-tube, Zyprexa 10 mg q. 8 hours. He is also on fentanyl only p.r.n. DIAGNOSTIC DATA: His EEG on 01/10 showed severe encephalopathy. His last CT of the head on the showed an old lacune left basal ganglia, but nothing acute. He has not had any repeat imaging of the brain. PHYSICAL EXAMINATION: VITAL SIGNS: Temperature is 97.8, heart rate 87, respiratory rate 17, blood pressure is 125/72, saturating at 94% FiO2 30% via trach. CARDIAC: He is in sinus rhythm. Heart rate is regular. NEUROLOGIC: His eyes are open. His pupils are reactive. He does not have any significant gaze preference. He has some roving eye movements. No blink to threat. Does not track or look at examiner. His mouth is open. He has dry tongue. Will not stick his tongue out. There is no facial asymmetry noted. He does not withdraw to any significant painful stimuli. His tone is flaccid throughout. I cannot elicit any real reflexes. Toes are neutral. Gait cannot be assessed, nor cerebellar. LABORATORY DATA: Reviewed. His white count today is 10.4, hemoglobin 7.7, platelets are 314,000. CO2 is 19.7, BUN 116, creatinine 4.54, GFR 13, glucose 118. Hemoglobin A1c was 6 on 12/23. Calcium 8.1. B12 was 1173, thiamine was 203. TSH was 1.180. Tox screen not done for vancomycin, because he is off. Urine not done since . PATHOLOGY, CYTOLOGY: Pleural fluid cytology shows negative malignant cells, acute inflammation. His bone marrow shows hypercellular bone marrow with myeloid hyperplasia, negative for lymphoma, increased sustainable iron, moderate leukocytosis with neutrophilia, moderate normochromic, normocytic anemia. MICROBIOLOGY: No growth, blood cultures, in 5 days. Urine, no growth in 48 hours. Sputum, no growth, final. Pleural fluid, no fungal, no growth. No acid fast. Gram stain negative. DIAGNOSTIC DATA: Chest x-ray: No significant change described by the radiologist. Let me go into more detail. From 01/16, basically diffuse bilateral pleural parenchymal opacity, unchanged. Last CT, 01/05, brain, nothing acute, old lacune left basal ganglia. Last EEG on 01/10 showed severe encephalopathy. IMPRESSION: Ongoing encephalopathy in a 72-year-old man with now new onset renal disease. He is undergoing hemodialysis. RECOMMENDATIONS: Neurologically, would be please stop all sedating medicine. Stop his oxycodone. Stop is Zyprexa and Haldol only use gingerly if needed. We will get the EEG report from today. I would repeat it in 24-48 hours off of narcotics and off of Zyprexa. I will also order an MRI of the brain to look for any strokes or stroke-like lesions. Depending on findings, we will make further recommendations, but at this point, he has a severe encephalopathic process. I am not sure what the head shaking is. I do not think that is a seizure. Also, he may be having some hallucinations and he may be trying to just shake his head due to maybe fear. What is disturbing is the family states that a few days ago, he was following commands and now he no longer is. So, followup EEG in 24-48 hours depending on what this one shows from today. Please stop his olanzapine and oxycodone, and we will get an MRI of the brain. I will be out of town for the following week. I will have him signed out to on-call doctor, Dr. Munoz, as of tomorrow. MD GABE Garcia/NANDINI , 06:40 PM , 07:18 PM
[2018-01-17] MEDS: HEPARIN SODIUM - SQ 10,000 UNITS/ML VIAL SQ SCH (21:23)
[2018-01-18] VITALS (17 sets, daily range): BP systolic 119–153; BP diastolic 70–86; PULSE 89–123; RESP 19–24; TEMP 97.4–99.8; O2SAT 93–100
[2018-01-18] MEDS: MIDODRINE 5 MG TAB PO SCH ×3 (00:31→17:00)
[2018-01-18] MEDS: OLANZapine 10 MG TAB PO SCH ×3 (02:00→18:00)
[2018-01-18] MEDS: oxyCODONE HCL ORAL CONC 5 MG/0.25 ML SYRINGE PO SCH ×6 (04:00→20:00)
[2018-01-18 05:28] LABS: HEMATOCRIT 22.3 % (39.0-51.0); HEMOGLOBIN 7.6 GM/DL (13.0-17.0); MEAN CELL VOLUME 85.4 FL (80.0-100.0); MEAN CORPUSCULAR HEMOGLOBIN 29.2 PG (27.0-34.0); MEAN CORPUSCULAR HGB CONC 34.2 % (32.0-36.0); MEAN PLATELET VOLUME 9.5 FL (7.0-11.0); PLATELET COUNT 304 TH/MM3 (150-450); RED BLOOD COUNT 2.61 MIL/MM3 (4.50-5.90); RED CELL DISTRIBUTION WIDTH 18.1 % (11.6-17.2)
[2018-01-18] MEDS: METOCLOPRAMIDE HCL 10 MG/2 ML VIAL IV PUSH SCH ×3 (05:36→21:45)
[2018-01-18 05:57] LABS: BICARBONATE 23.6 MEQ/L (21.0-32.0); CALCIUM 7.7 MG/DL (8.5-10.1); CREATININE 4.18 MG/DL (0.60-1.30); PHOSPHORUS 4.2 MG/DL (2.5-4.9)
[2018-01-18] MEDS: INSULIN ASPART SUPPLEMENTAL SCALE SQ SCH ×4 (06:00→18:00)
[2018-01-18] MEDS: ACETAMINOPHEN 650 MG/20.3 ML UDC G-TUBE PRN (06:49)
[2018-01-18] MEDS: ARTIFICIAL TEARS OPTH SOLN 15 ML BTL EACH EYE SCH ×3 (08:00→21:38)
[2018-01-18] MEDS: CHLORHEXIDINE 0.12% (ORAL KIT) 15 ML CUP MT SCH ×4 (08:00→20:00)
[2018-01-18] MEDS: DOCUSATE SODIUM 100 MG/10 ML UDC OG-TUBE SCH ×2 (08:38→21:00)
[2018-01-18] MEDS: SENNOSIDES SYRUP 8.8 MG/5 ML CUP J-TUBE SCH ×2 (08:38→21:00)
[2018-01-18] MEDS: FREE WATER G-TUBE SCH ×3 (09:00→18:00)
[2018-01-18] MEDS: ASPIRIN 81 MG CHEW TAB CHEW SCH (09:00)
[2018-01-18] MEDS: MEGESTROL ACETATE SUSP 400 MG/10 ML CUP PO SCH (09:00)
[2018-01-18] MEDS: predniSONE 10 MG TAB PO SCH ×2 (09:00→21:45)
[2018-01-18] MEDS: MULTIVITAMIN TAB PO SCH (09:00)
[2018-01-18] MEDS: SODIUM CHLORIDE 0.9% FLUSH 10 ML FLUSH IV FLUSH SCH ×2 (09:00→21:00)
[2018-01-18] MEDS: BUDESONIDE-FORMOTEROL 160/4.5 MCG INHALER INH SCH ×2 (09:00→21:00)
[2018-01-18] MEDS: LANSOPRAZOLE SOLUTAB 30 MG TAB G-TUBE SCH ×2 (09:00→21:45)
[2018-01-18] MEDS: HEPARIN SODIUM - SQ 10,000 UNITS/ML VIAL SQ SCH ×2 (09:00→21:45)
--- NOTE | 2018-01-18 09:42 | MG ---
cc: Jesús Allen MD EEG NUMBER: [id number] INDICATION: Intubated, on haldol, oxycodone and gentamicin. DESCRIPTION: Diffuse 6 Hz slowing is seen to 60 microvolts including overall synchronous and symmetric. No hemisphere asymmetry is noted. No epileptiform or seizure activity is seen. Hyperventilation was not performed. Photic stimulation was performed without significant change in the background. IMPRESSION: Diffuse slowing consistent with a moderate diffuse encephalopathy, could be part medication effect. No focal abnormalities were noted. No seizure activity is seen. MD CHELLY Troy/FREDY , 09:29 AM , 09:42 AM
--- NOTE | 2018-01-18 11:20 | HHI.CCPN ---
Subjective Remarks/Hospital Course 01/01: 72-year-old gentleman with history of hypertension, hyperlipidemia and previous CVA, COPD, now newly diagnosed with anaplastic large cell non-Hodgkin' s lymphoma now transferred from [facility] on 12/23 for further treatment. On 12/25 patient received chemotherapy -CHOP regimen. Hospitalization further significant for PEG placement due to malnutrition and lack of appetite and thoracentesis for pleural effusion. Patient was being followed by pulmonary, cardiology and hematology services. Over the night patient had increased O2 requirements with high tube feed residual and concern for aspiration. A rapid response was called earlier this afternoon for worsening hypoxia despite NRM. Patient was emergently intubated and upon intubation he was found to have significant amount of tube feeds in the airway. An NG tube was placed on suction with 750 cc suctioned from the stomach. Patient was started on midazolam and fentanyl drips and phenylephrine for BP support. Patient was seen immediately on ICU arrival, 100% O2 with SPO2 100%. Patient requires 20 mics per minute of phenylephrine infusion. He is intubated and sedated, unresponsive. 01/02: No events over the night. Patient remains critically ill. He is currently sedated and intubated. He remains on phenylephrine at 80 mics per minute. FiO2 down to 0.6. T-max 98.6, I/O 1550/400. 01/03: Patient did well over the night. Norepinephrine weaned off. FiO2 currently at 0.5. Patient remains on a PEEP of 10. Sedation accomplished with propofol and fentanyl. Tmax 98.4. 01/04: Multiple episodes of diarrhea overnight. No C. difficile sent. Urine output decreased, 300 mL's over last 12 hours. Patient does not require any pressors, sedation is maintained with propofol at 30 and fentanyl at 150. During sedation vacation patient moves all extremities, agitated, but does not follow commands. Currently he is sedated and intubated. Morning chest x-ray reviewed, slight improvement in bibasilar infiltrates. 01/05: No events over the night. T-max of 98.6. Urine output 550 mL's over the last 24 hours. Ventilator on 0.4 FiO2. Sedation was stopped this morning, patient agitated moving all extremities but not following commands. Morning chest x-ray reviewed, no significant change compared to yesterday's, ET tube approximately 7 cm above clem. 01/06: Patient remains afebrile, on no pressors. Oxygenation down to 0.4 FiO2, but PEEP remains at 10. Trickle feeds started yesterday, still having residuals. Patient remains on low-dose propofol and fentanyl for sedation. Morning chest x-ray reviewed, still with bibasilar opacities, unchanged. 01/07: Remains sedated, orally intubated on mechanical ventilation. Fentanyl at 150 mics per minute decreased to 50 mics per minute. Abdomen remains distended. Tolerating tube feeds at 20 cc/h with residual 60 cc. 01/08: Sedated, orally intubated on mechanical ventilation. Had large amount of BM last night following Relistor. On tube feeds at 20 cc per hour. 01/09: Currently on propofol drip at 40 mcg/kg/min. Afebrile. GJ tube per IR yesterday. Tube feeds were restarted. at bedside. Continue to diuresis furosemide/albumin 01/10: Currently off all sedation. Transitioning to dexmedetomidine drip. Tolerating tube feeds via GJ tube. Positive BM. Creatinine up to 3.1. Blinks eyes to commands but not moving extremities. Withdraws to pain. 01/11: Afebrile. Long discussion with . Nephrology wishes to initiate hemodialysis today. Benefits and risks discussed. She wishes to wait another day to see if he has any significant recovery. Nephrology will give extra furosemide today. 01/12: More awake today. Follows commands. Eyes are open. Moves all 4 extremities spontaneously. does not wish to pursue hemodialysis today. Requesting decreasing furosemide drip to 2.5 mg/h due to "elevated BUN". 01/13: Intubated this a.m. due to acute hypoxic hypercapnic respiratory failure/ actively aspirating. Follow-up chest x-ray and ABG pending. Discussed with at bedside. A.m. laboratories all pending 01/14: Resting in bed in no acute distress. Long discussion with regarding worsening pleural effusions and need for hemodialysis. She will discuss with her family friend and Dr. Blevins. 01/15: Afebrile. Currently resting in bed in no acute distress. Long discussion with . Currently wishes to's second opinion for nephrology. We will performed today. 01/16: afebrile. failed trial of Precedex for agitation. now back on propofol. I started discussions about trach today: failed extubation and now 20kg up- will not successfully wean with current deconditioning, volume overload, renal failure, and likely large component of uremic encephalopathy. overall worsening renal function persists. Subjective 01/17: s/p trach yesterday. less agitated today. also s/p dialysis yesterday. no meaningful improvements in mental status. 01/18: Stronger on SBTs today at 5/5, will try T-piece. Prealbumin 25 reflects adequate nutritional support however he remains severely debilitated. Objective Vital Signs Date Time Temp Pulse Resp B/P (MAP) Pulse Ox O2 Delivery O2 Flow Rate FiO2 01/18/18 11:06 96 30 01/18/18 06:00 116 01/18/18 04:00 99.4 20 119/70 (86) Intake and Output 01/18/18 01/18/18 01/19/18 08:00 16:00 00:00 Intake Total 982 ml Output Total 150 ml Balance 832 ml Result Diagram: 01/18/18 0500 01/18/18 0500 Imaging Last Impressions Chest X-Ray 01/15/18 0600 Signed Impressions: Service Date/Time: Monday, January 15, 2018 04:54 - CONCLUSION: Stable aeration Andres Drew MD Lower Extremity Ultrasound 01/15/18 0000 Signed Impressions: Service Date/Time: Monday, January 15, 2018 18:00 - CONCLUSION: Normal examination. Elbert Carrasquillo MD Abdomen X-Ray 01/15/18 0000 Signed Impressions: Service Date/Time: Monday, January 15, 2018 15:06 - CONCLUSION: Nonspecific, nonobstructive bowel gas pattern. PEG tube present. Andres Parekh MD Gastrostomy Tube Change 01/08/18 0000 Signed Impressions: Service Date/Time: Monday, January 08, 2018 14:35 - CONCLUSION: Conversion of the patient's existing gastrostomy tube to a gastrojejunostomy tube. Siva Bean Jr., MD Renal Ultrasound 01/05/18 0000 Signed Impressions: Service Date/Time: Friday, January 05, 2018 08:00 - CONCLUSION: Echogenic kidneys suggesting medical renal disease. Some ascites. Bilateral pleural effusions. eLe Mijares MD Head CT 01/05/18 0000 Signed Impressions: Service Date/Time: Friday, January 05, 2018 11:41 - CONCLUSION: 1. No acute abnormality is seen. 2. Old lacunar infarct at the left basal ganglia. 3. Fluid in the mastoid air cells on the right. Andres Valero MD Small Bowel X-Ray 01/03/18 0000 Signed Impressions: Service Date/Time: December 14:27 - CONCLUSION: 1. No leakage identified on injection through gastrostomy tube. No small bowel obstruction or significant dilatation. Elbert Carrasquillo MD Abdomen/Pelvis CT 01/02/18 0000 Signed Impressions: Service Date/Time: Tuesday, January 02, 2018 21:38 - CONCLUSION: 1. Free intraperitoneal air of unknown etiology. On the supine view most of the free air is around the gastrostomy tube and tip of the nasogastric tube as discussed above. 2. Mild to moderate ascites. Moderate anasarca. 3. Moderate bilateral effusions with basilar atelectasis. 4. Nonobstructing right renal calculus. Hay catheter in bladder. Elbert Carrasquillo MD Chest CT 12/30/17 0000 Signed Impressions: Service Date/Time: Saturday, December 30, 2017 21:13 - CONCLUSION: 1. Free intraperitoneal air in the upper abdomen of uncertain etiology. There is a gastrostomy present. 2. Moderate bilateral pleural effusions with compressive atelectasis. Patchy air space consolidation in the right upper lobe. 3. Moderate anasarca and ascites. 4. Findings called to the floor at the time of dictation. Elbert Carrasquillo MD Chest Ultrasound 12/27/17 0000 Signed Impressions: Service Date/Time: December 21:39 - CONCLUSION: Large left pleural effusion and would be amenable to thoracentesis. Frandy was made on the overlying skin. Andres Parekh MD Bone Biopsy CT 12/25/17 1142 Signed Impressions: Service Date/Time: Monday, December 25, 2017 12:32 - CONCLUSION: 1. Uncomplicated CT guided bone marrow aspirate. 2. Uncomplicated CT guided bone marrow biopsy. Lee Mijares MD CT Angiography 12/25/17 0000 Signed Impressions: Service Date/Time: Monday, December 25, 2017 09:26 - CONCLUSION: 1. No CT evidence for pulmonary artery embolism. 2. Moderate to large bilateral pleural effusions with associated compressive atelectasis at the lung bases. 3. 8mm nodule in the right middle lobe. Followup CT examination may be performed at 6 months to document stability if this has not been evaluated previously. 4. Very mildly prominent mediastinal and hilar nodes and partially imaged upper abdominal lymphadenopathy in this patient with history of lymphoma. Miguel Ashton MD Objective Remarks General -72-year-old male, tracheally intubated HEENT - pupils are equal, reactive about 2 mm bilaterally, sclerae are anicteric , neck is supple, no rigidity. Trach site clean. CV -RRR with ectopy. sinus. Chest -equal chest rise, Yavmku-b-[id number] right chest -site remains clean. prvc fio2 40% Abdomen - soft, obese, protuberant. + GJ tube. Extremities - 3+ edema, anasarca, + peripheral pulses, warm, no cyanosis Neuro - intubated, pupils equal and reactive, grimaces to pain. Moves head side to side. Date of Insertion: Jan 01, 2018 Date of Removal: Jan 12, 2018 A/P Assessment and Plan Assessment: 72yM with new diagnosis of lymphoma, course complicated by recurrent hypoxic respiratory failure, severe volume overload, acute kidney injury, multiorgan failure, shock, and severe acute protein calorie malnutrition. prognosis at this point is poor. I do not think he will survive this illness. Family continues to press for aggressive measures and FULL CODE status. now s/p trach and vascath. Now that he is on dialysis, his acute medical problems are controlled- he certainly will need weaning from mechanical ventilation and strengthening before his lymphoma can be managed. will begin seeking placement for him. 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 still agitated Goal of RASS -2 - [address] brain 01/05 revealed old left basal CVA. hold on MRI. likely uremic encephalopathy will start zyprexa 10mg po q8h to help with agitation. wean propofol as tolerated. CV: Hypertension Dyslipidemia 2D echocardiogram revealed EF 65-70%. Tricuspid regurgitation. PA P 38 mmHg He is on aspirin 81 mg p.o. daily continue midodrine in an effort to minimize highly potent iv vasopressors. Resp: Acute hypoxic hypercapnic respiratory failure secondary to aspiration pneumonia Right middle lobe pulmonary nodule 8 mm recommend 6 month follow-up CT chest COPD PRVC, full support. 35% fio2. daily SBT. Ventilator bundle Patient written for budesonide/formoterol 160/4.5 2 puffs twice daily. Albuterol/ipratropium aerosols every 6 hours with albuterol aerosols every 2 hours as needed dyspnea On prednisone [address] Blevins/pulmonology is following s/p trach 01/[address] Graf GI: Status post GJ conversion by IR 01/08 Hypoalbuminemia Acute protein calorie malnutrition - severe. Lansoprazole 30 mg twice daily for GI prophylaxis Docusate sodium liquid 100 mg twice daily for bowel regimen On Megestrol 800 mg daily for anorexia Nutrition recommends vital 1.5 goal 60 cc an hour.. On Nepro at 50 cc an hour due to renal failure prealbumin 25 on 01/16. check prealbumin qweek. : Hay catheter for accurate I's and O's in a critically ill patient: keep. needing accurate i/o's in acute oliguric renal failure. Endo: Sliding scale insulin to maintain euglycemia/low regimen every 6 hours TSH is 1.18 Renal: Acute kidney injury likely secondary to sepsis/ATN Right-sided nephrolithiasis Urine eosinophils negative. Renal ultrasound reveals medical renal disease and prior CT abdomen/pelvis revealed non-obstructing right renal stones. Followed by nephrology Avoid nephrotoxic medication Off furosemide drip. Currently in free water 300 cc every 6 and chlorothiazide 500 mg IV 1. Nephrology to guide renal therapies. 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 Followed by hematology. currently not stable enough for chemotherapy. would be a candidate if he ever stabilized, but I do not see this as a functional reality. unlikely to tolerate future chemotherapies. No indication for transfusion of blood products at this time ID: Followed by infectious disease for prescribing medication FEN: Hypernatremia d/c Free water 300 cc every 6 hours Replace electrolytes as clinically indicated MSK: Sacral decubitus ulcer Wound care management Access Left IJ CVL placed 01/01 - 01/10 Right Rzdjbr-t-Stjw placed 12/20/17 Prophylaxis -GI -lansoprazole -DVT -SCD/heparin subcu Overall impression: Severely debilitated and deconditioned despite improving chemical nutritional measurements. Will likely tolerate T-piece quite soon and be able to go to SNF. Keny Zuniga MD Jan 18, 2018 11:20
--- NOTE | 2018-01-18 12:31 | HHI.PR ---
Subjective Remarks .He is still lethargic but tolerates CPAP. X ray chest shows Bilateral infiltrates. Very weak and no response to commands. For Brain MRI today Had Dialysis done . 3 L out. Objective Vital Signs Date Time Temp Pulse Resp B/P (MAP) Pulse Ox O2 Delivery O2 Flow Rate FiO2 01/18/18 11:06 96 30 01/18/18 07:50 30 01/18/18 07:47 94 30 01/18/18 06:00 116 01/18/18 04:03 95 30 01/18/18 04:00 30 01/18/18 04:00 99.4 116 20 119/70 (86) 95 01/18/18 04:00 123 01/18/18 01:15 93 30 01/18/18 00:00 113 01/18/18 00:00 30 01/18/18 00:00 97.8 110 20 138/72 (94) 96 01/17/18 20:49 94 30 01/17/18 20:49 30 01/17/18 20:00 30 01/17/18 20:00 98.4 77 18 178/95 (122) 94 01/17/18 20:00 93 01/17/18 18:00 87 01/17/18 16:00 30 01/17/18 16:00 97.8 110 17 125/72 (89) 94 01/17/18 16:00 110 01/17/18 14:47 94 30 01/17/18 14:00 111 I/O 01/17/18 01/17/18 01/17/18 01/18/18 01/18/18 01/18/18 07:00 15:00 23:00 07:00 15:00 23:00 Intake Total 920 ml 1076 ml 982 ml Output Total 100 ml 3000 ml 100 ml 150 ml Balance 820 ml -3000 ml 976 ml 832 ml IV Total 664 ml Tube Feeding 256 ml 676 ml 582 ml Other 400 ml 400 ml Output Urine Total 100 ml 100 ml 150 ml Hemodialysis 3000 ml Result Diagram: 01/18/18 0500 01/18/18 0500 Procedures PEG tube placement. Bone Marrow Biopsy 12/25/17 Objective Remarks General appearance: This elderly white male is , on vent support. HEENT: Head normocephalic. Pupils reactive. Throat was clear. Neck: No bruits or thyroid enlargement or lymphadenopathy. Chest: Distant breath sounds with crackles at both lung bases.Occ wheezes bilateral. Cardiovascular: The heart sounds are regular, S1 and S2. No murmur. No S3. Abdomen: Is soft, benign. No masses. Extremities: 2 + edema. Pt is sedated.Lethargic. Assessment and Plan Assessment and Plan IMPRESSION: 1. Bibasilar pleural effusions with atelectasis. 2. History of hypertension. 3. Hyperlipidemia. 4. COPD, emphysema. 5. History of Anaplastic NHL . 6. Respiratory Failure, Recurrent Plan : 1. Cont Vent support A/C PC rate 12 FIo2 30 % 2 For dialysis in am 3. Prednisone 10 mg bid 4. Nebs qid , duoneb. 5. Continue Tube feeds at 50 Cc 6. CBC,BMP in am 7. T Bar trial if tolerating 8. D/W family at length Katiuska Blevins MD Jan 18, 2018 12:31
--- NOTE | 2018-01-18 13:52 | RADRPT ---
EXAM DATE/TIME: 01/18/2018 12:24 [facility] COMPARISON: CT BRAIN W/O CONTRAST, January 05, 2018, 11:41. INDICATIONS : Altered mental status. MEDICAL HISTORY : Chronic obstructive pulmonary disease. Hypertension. lymphoma, stage 3 renal disease SURGICAL HISTORY : Fusion, lumbar. ENCOUNTER: Subsequent ACUITY: 3 weeks PAIN SCORE: Nonresponsive. LOCATION: cranial TECHNIQUE: Multiplanar, multisequence MRI of the brain was performed without contrast. FINDINGS: Severe technical limitations of the examination due to patient motion despite utilizing rapid acquisi tion pulse sequences. The diffusion-weighted images are nondiagnostic. There is moderate central an d cortical atrophy with prominence of the ventricles, sulci, and basal cisterns. No evidence of midl ine shift. No asymmetric extra-axial fluid collections. Lacunar infarcts in the left frontal and pa rietal region similar to prior CT. CONCLUSION: 1. Diffuse atrophy. 2. No acute findings seen; severe technical limitations due to patient motion. The diffusion-weighte d images are nondiagnostic. Siva Cooley MD on January 18, 2018 at 13:46 Board Certified Radiologist. This report was verified electronically.
--- NOTE | 2018-01-18 14:08 | HHI.PR ---
Subjective Remarks s/p mri awake and follows today. Objective Vital Signs Date Time Temp Pulse Resp B/P (MAP) Pulse Ox O2 Delivery O2 Flow Rate FiO2 01/18/18 12:55 98 T-piece 6.00 35 01/18/18 12:55 100 100 01/18/18 11:06 96 30 01/18/18 07:50 30 01/18/18 07:47 94 30 01/18/18 06:00 116 01/18/18 04:03 95 30 01/18/18 04:00 30 01/18/18 04:00 99.4 116 20 119/70 (86) 95 01/18/18 04:00 123 01/18/18 01:15 93 30 01/18/18 00:00 113 01/18/18 00:00 30 01/18/18 00:00 97.8 110 20 138/72 (94) 96 01/17/18 20:49 94 30 01/17/18 20:49 30 01/17/18 20:00 30 01/17/18 20:00 98.4 77 18 178/95 (122) 94 01/17/18 20:00 93 01/17/18 18:00 87 01/17/18 16:00 30 01/17/18 16:00 97.8 110 17 125/72 (89) 94 01/17/18 16:00 110 01/17/18 14:47 94 30 I/O 01/17/18 01/17/18 01/17/18 01/18/18 01/18/18 01/18/18 07:00 15:00 23:00 07:00 15:00 23:00 Intake Total 920 ml 1076 ml 982 ml Output Total 100 ml 3000 ml 100 ml 150 ml Balance 820 ml -3000 ml 976 ml 832 ml IV Total 664 ml Tube Feeding 256 ml 676 ml 582 ml Other 400 ml 400 ml Output Urine Total 100 ml 100 ml 150 ml Hemodialysis 3000 ml Result Diagram: 01/18/18 0500 01/18/18 0500 Imaging mri poor study but no acute findings eeg moderate encephalopathy Procedures PEG tube placement. Bone Marrow Biopsy 12/25/17 Objective Remarks awake looks at examiner follows simple commands nods and closes eyes /mouth blinks on command diffusely weak not changed Assessment and Plan Assessment and Plan encephalopathy -improved -hold sedating meds as stated in consult -cont current tx per other consultants will sign off call if any new issues. Jaquelin Garza MD Jan 18, 2018 14:08
--- NOTE | 2018-01-18 16:48 | HHI.HCPN ---
Reason for visit a. To assist with evaluation and management of symptoms including: Dyspnea, agitation b. To assist medical decision maker(s) with: better understanding of current medical conditions; weighing benefits/burdens of medical treatment options; making medical treatment decisions. (Annalee Mahoney) Subjective/Interval History Patient seen today to follow-up on symptom management and goals of care. Tracheostomy has been placed and patient is tolerating T-piece trials well on 35 % FiO2. He remains encephalopathic, frequently agitated, sedating medications have been discontinued by neurology. He is undergoing dialysis which was initiated 01/17 removing 3000 mL with a second therapy today again removing 3000 mL. He remains in sinus tachycardia, with PACs, heart rates in the low 120s. Blood pressure 119/70, heart rate 123, respiratory rate 20, oxygen saturation 95 % on 30% FiO2, afebrile. Labs show WBC 11.0, hemoglobin 7.6, hematocrit 22.3, platelets 304, sodium 144, potassium 4.2, BUN 102, creatinine 4.18. This is an elderly male lying in bed in mild distress. He is frequently agitated thrashing his head from side to side, however less than yesterday. He does not make eye contact or respond to commands. In spite of dialyzing 6 L off in the last 2 days, he remains with significant 2-3+ pitting edema up through his thighs. . Family/friend interactions Spoke with family at bedside and updated as to MRI results and placement options. Family had previously requested an evaluation at [facility], however per my discussion with Dr. Zuniga, there is no availability of beds for transfer. Family was however happy with the referral to [facility] rehab service, who is evaluating him for admission. . (Annalee Mahoney) Advance Directives Living Will: Never completed Health Care Surrogate: Never completed Durable Power of Chair Mechanic: Never completed (Annalee Mahoney) Advance Directive Specifics Health Care Surrogate(s): Not completed. . Documented care wishes: No living will completed. . (Annalee Mahoney) Objective Vital Signs Date Time Temp Pulse Resp B/P (MAP) Pulse Ox O2 Delivery O2 Flow Rate FiO2 01/18/18 12:55 98 T-piece 6.00 35 01/18/18 12:55 100 100 01/18/18 11:06 96 30 01/18/18 07:50 30 01/18/18 07:47 94 30 01/18/18 06:00 116 01/18/18 04:03 95 30 01/18/18 04:00 30 01/18/18 04:00 99.4 116 20 119/70 (86) 95 01/18/18 04:00 123 01/18/18 01:15 93 30 01/18/18 00:00 113 01/18/18 00:00 30 01/18/18 00:00 97.8 110 20 138/72 (94) 96 01/17/18 20:49 94 30 01/17/18 20:49 30 01/17/18 20:00 30 01/17/18 20:00 98.4 77 18 178/95 (122) 94 01/17/18 20:00 93 01/17/18 18:00 87 01/17/18 16:00 30 01/17/18 16:00 97.8 110 17 125/72 (89) 94 01/17/18 16:00 110 Intake & Output 01/18/18 01/18/18 07:00 19:00 Intake Total 982 ml Output Total 150 ml Balance 832 ml Tube Feeding 582 ml Other 400 ml Output Urine Total 150 ml Physical Exam CONSTITUTIONAL/GENERAL: This is a thin, elderly male intubated, sedated in mild distress. TUBES/LINES/DRAINS: Right chest wall port EYES: Pupils 2 mm equal and round and sluggishly reactive. No scleral icterus. No injection or drainage. Fundi not examined. ENT: Nose without bleeding or purulent drainage. Throat without visible erythema, exudates, masses, or lesions. NECK: Midline tracheostomy. CARDIOVASCULAR: Irregular rhythm, S1, S2, episodes of atrial bigeminy seen on telemetry, sinus mechanism underlying, mildly tachycardic, no rub murmur or gallop. RESPIRATORY/CHEST: Symmetric, unlabored respirations. Coarse rhonchi throughout all anterior lung clark, right-sided wheezes. On T piece GASTROINTESTINAL: Abdomen soft, protuberant, nondistended. Hypoactive bowel sounds 4. GENITOURINARY: Without palpable bladder distension. Hay catheter in place. MUSCULOSKELETAL: 3+ pitting edema to bilateral lower extremities, 1+ to upper extremities, extremities warm with less than 3 second capillary refill. NEUROLOGICAL: Moves all extremities, not to command, pupils equal reactive, does not focus or track. PSYCHIATRIC: Mildly agitated. . (Annalee Mahoney) Diagnostic Tests Laboratory Laboratory Tests Test 01/16/18 05:45 01/17/18 05:00 01/18/18 05:00 White Blood Count 13.8 TH/MM3 (4.0-11.0) 10.4 TH/MM3 (4.0-11.0) 11.0 TH/MM3 (4.0-11.0) Red Blood Count 2.94 MIL/MM3 (4.50-5.90) 2.58 MIL/MM3 (4.50-5.90) 2.61 MIL/MM3 (4.50-5.90) Hemoglobin 8.5 GM/DL (13.0-17.0) 7.7 GM/DL (13.0-17.0) 7.6 GM/DL (13.0-17.0) Hematocrit 25.4 % (39.0-51.0) 22.4 % (39.0-51.0) 22.3 % (39.0-51.0) Mean Corpuscular Volume 86.3 FL (80.0-100.0) 86.8 FL (80.0-100.0) 85.4 FL (80.0-100.0) Mean Corpuscular Hemoglobin 29.0 PG (27.0-34.0) 29.7 PG (27.0-34.0) 29.2 PG (27.0-34.0) Mean Corpuscular Hemoglobin Concent 33.6 % (32.0-36.0) 34.2 % (32.0-36.0) 34.2 % (32.0-36.0) Red Cell Distribution Width 18.6 % (11.6-17.2) 18.3 % (11.6-17.2) 18.1 % (11.6-17.2) Platelet Count 381 TH/MM3 (150-450) 314 TH/MM3 (150-450) 304 TH/MM3 (150-450) Mean Platelet Volume 9.6 FL (7.0-11.0) 9.6 FL (7.0-11.0) 9.5 FL (7.0-11.0) Neutrophils (%) (Auto) 93.5 % (16.0-70.0) Lymphocytes (%) (Auto) 2.3 % (9.0-44.0) Monocytes (%) (Auto) 3.9 % (0.0-8.0) Eosinophils (%) (Auto) 0.0 % (0.0-4.0) Basophils (%) (Auto) 0.3 % (0.0-2.0) Neutrophils # (Auto) 12.9 TH/MM3 (1.8-7.7) Lymphocytes # (Auto) 0.3 TH/MM3 (1.0-4.8) Monocytes # (Auto) 0.5 TH/MM3 (0-0.9) Eosinophils # (Auto) 0.0 TH/MM3 (0-0.4) Basophils # (Auto) 0.0 TH/MM3 (0-0.2) CBC Comment AUTO DIFF Differential Total Cells Counted 100 Neutrophils % (Manual) 84 % (16-70) Band Neutrophils % 7 % (0-6) Lymphocytes % 6 % (9-44) Monocytes % 3 % (0-8) Neutrophils # (Manual) 12.6 TH/MM3 (1.8-7.7) Differential Comment FINAL DIFF MANUAL Platelet Estimate NORMAL (NORMAL) Platelet Morphology Comment NORMAL (NORMAL) Blood Urea Nitrogen 133 MG/DL (7-18) 116 MG/DL (7-18) 102 MG/DL (7-18) Creatinine 4.62 MG/DL (0.60-1.30) 4.54 MG/DL (0.60-1.30) 4.18 MG/DL (0.60-1.30) Random Glucose 115 MG/DL (74-106) 118 MG/DL (74-106) 135 MG/DL (74-106) Albumin 1.6 GM/DL (3.4-5.0) Calcium Level 8.0 MG/DL (8.5-10.1) 8.1 MG/DL (8.5-10.1) 7.7 MG/DL (8.5-10.1) Phosphorus Level 4.7 MG/DL (2.5-4.9) 4.2 MG/DL (2.5-4.9) Magnesium Level 2.7 MG/DL (1.5-2.5) Sodium Level 150 MEQ/L (136-145) 144 MEQ/L (136-145) 144 MEQ/L (136-145) Potassium Level 4.3 MEQ/L (3.5-5.1) 4.2 MEQ/L (3.5-5.1) 4.2 MEQ/L (3.5-5.1) Chloride Level 118 MEQ/L (98-107) 111 MEQ/L (98-107) 110 MEQ/L (98-107) Carbon Dioxide Level 19.6 MEQ/L (21.0-32.0) 19.7 MEQ/L (21.0-32.0) 23.6 MEQ/L (21.0-32.0) Anion Gap 12 MEQ/L (5-15) 13 MEQ/L (5-15) 10 MEQ/L (5-15) Estimat Glomerular Filtration Rate 13 ML/MIN (>89) 13 ML/MIN (>89) 14 ML/MIN (>89) Prealbumin 25 MG/DL (20-40) (Annalee Mahoney) Result Diagram: 01/18/18 0500 01/18/18 0500 Microbiology Microbiology Date/Time Source Procedure Growth Status 01/01/18 17:57 Blood Peripheral Aerobic Blood Culture - Final NO GROWTH IN 5 DAYS Complete 01/01/18 17:57 Blood Peripheral Anaerobic Blood Culture - Final NO GROWTH IN 5 DAYS Complete 12/28/17 12:15 Fluid Pleural Fluid Fungal Smear - Final NO FUNGAL ELEMENTS SEEN. Resulted 12/28/17 12:15 Fluid Pleural Fluid Fungal Culture - Preliminary NO GROWTH IN 3 WEEKS Resulted 01/01/18 17:15 Sputum Endotracheal Gram Stain - Final Complete 01/01/18 17:15 Sputum Endotracheal Sputum Culture - Final HEAVY GROWTH NORMAL RESPIRATORY LISA Complete 01/01/18 17:15 Urine Catheterized Urine Urine Culture - Final NO GROWTH IN 48 HOURS. Complete Imaging Last Impressions Brain MRI 01/18/18 0000 Signed Impressions: Service Date/Time: Thursday, January 18, 2018 12:24 - CONCLUSION: 1. Diffuse atrophy. 2. No acute findings seen; severe technical limitations due to patient motion. The diffusion-weighted images are nondiagnostic. Siva Coolye MD Chest X-Ray 01/16/18 0600 Signed Impressions: Service Date/Time: Tuesday, January 16, 2018 04:51 - CONCLUSION: No significant change Andres Drew MD Abdomen Ultrasound 01/16/18 Signed Impressions: Service Date/Time: Tuesday, January 16, 2018 09:47 - CONCLUSION: 1. Moderate amount of peritoneal ascites. 2. Pancreas obscured by overlying bowel gas. 3. Otherwise negative. Faisal Tinajero MD Lower Extremity Ultrasound 01/15/18 Signed Impressions: Service Date/Time: Monday, January 15, 2018 18:00 - CONCLUSION: Normal examination. Elbert Carrasquillo MD Abdomen X-Ray 01/15/18 Signed Impressions: Service Date/Time: Monday, January 15, 2018 15:06 - CONCLUSION: Nonspecific, nonobstructive bowel gas pattern. PEG tube present. Andres Parekh MD Gastrostomy Tube Change 01/08/18 Signed Impressions: Service Date/Time: Monday, January 08, 2018 14:35 - CONCLUSION: Conversion of the patient's existing gastrostomy tube to a gastrojejunostomy tube. Siva Bean Jr., MD Renal Ultrasound 01/05/18 Signed Impressions: Service Date/Time: Friday, January 05, 2018 08:00 - CONCLUSION: Echogenic kidneys suggesting medical renal disease. Some ascites. Bilateral pleural effusions. Lee Mijares MD Head CT 01/05/18 Signed Impressions: Service Date/Time: Friday, January 05, 2018 11:41 - CONCLUSION: 1. No acute abnormality is seen. 2. Old lacunar infarct at the left basal ganglia. 3. Fluid in the mastoid air cells on the right. Andres Valero MD Small Bowel X-Ray 01/03/18 Signed Impressions: Service Date/Time: December 14:27 - CONCLUSION: 1. No leakage identified on injection through gastrostomy tube. No small bowel obstruction or significant dilatation. Elbert Carrasquillo MD Abdomen/Pelvis CT 01/02/18 0000 Signed Impressions: Service Date/Time: Tuesday, January 02, 2018 21:38 - CONCLUSION: 1. Free intraperitoneal air of unknown etiology. On the supine view most of the free air is around the gastrostomy tube and tip of the nasogastric tube as discussed above. 2. Mild to moderate ascites. Moderate anasarca. 3. Moderate bilateral effusions with basilar atelectasis. 4. Nonobstructing right renal calculus. Hay catheter in bladder. Elbert Carrasquillo MD Chest CT 12/30/17 0000 Signed Impressions: Service Date/Time: Saturday, December 30, 2017 21:13 - CONCLUSION: 1. Free intraperitoneal air in the upper abdomen of uncertain etiology. There is a gastrostomy present. 2. Moderate bilateral pleural effusions with compressive atelectasis. Patchy air space consolidation in the right upper lobe. 3. Moderate anasarca and ascites. 4. Findings called to the floor at the time of dictation. Elbert Carrasquillo MD Chest Ultrasound 12/27/17 0000 Signed Impressions: Service Date/Time: December 21:39 - CONCLUSION: Large left pleural effusion and would be amenable to thoracentesis. Frandy was made on the overlying skin. Andres Parekh MD Bone Biopsy CT 12/25/17 1142 Signed Impressions: Service Date/Time: Monday, December 25, 2017 12:32 - CONCLUSION: 1. Uncomplicated CT guided bone marrow aspirate. 2. Uncomplicated CT guided bone marrow biopsy. Lee Mijares MD CT Angiography 12/25/17 0000 Signed Impressions: Service Date/Time: Monday, December 25, 2017 09:26 - CONCLUSION: 1. No CT evidence for pulmonary artery embolism. 2. Moderate to large bilateral pleural effusions with associated compressive atelectasis at the lung bases. 3. 8mm nodule in the right middle lobe. Followup CT examination may be performed at 6 months to document stability if this has not been evaluated previously. 4. Very mildly prominent mediastinal and hilar nodes and partially imaged upper abdominal lymphadenopathy in this patient with history of lymphoma. Miguel Ashton MD Procedures 12/25 bone marrow biopsy 12/25 PEG tube placement 12/28 thoracentesis 01/01 intubation 01/01 left IJ central line placement 01/08, G-tube change from PEG to GJ. 01/12 extubated 01/13 orotracheal intubation 01/16: Bronchoscopy 01/16: Left subclavian dialysis catheter 01/16: Tracheostomy placement . 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 They have 2 children who live around the [facility] who provide their mother support. Spiritual: Declining medical social worker support. Legal: No legal issues noted. Ethical issues impacting care: No ethical issues noted. . Important Contacts : Kalani Diaz Prognosis His prognosis is very poor. He has stage IIIb anaplastic non-Hodgkin's lymphoma and is unable to pursue further chemotherapy due to his critical illness and debilitated state. Attempts to extubate him failed within 24 hours requiring reintubation. He is now suffering from acute renal failure in addition to his other comorbidities. He is not likely to survive this hospitalization. Code Status: Full Code Plan PLAN: Legal decision maker: , Kalani Diaz. Goals: Aggressive CODE STATUS: FULL CODE SYMPTOMS: * Dyspnea: Status post tracheostomy placement. Patient more awake today, tolerating T-piece trials. Placement inquiries being made to [facility] s [place] rehab. * Agitation: Remains mildly agitated but improving with continued dialysis. Likely uremic encephalopathy. All sedation held by neurology. No further recommendations at this time. Palliative care will continue to follow the patient during hospital course as condition evolves, to assist patient/decision-maker with understanding of their medical conditions, weighing benefits/burdens of treatment options, for clarification of goals of treatment. Additionally will assist with any symptoms of palliative concern. . (Annalee Mahoney) Attestation To help prompt me to consider important information that might be impacting today's encounter and assessment, information from prior notes written by myself or my colleagues may have been "brought forward" into today's note. My signature on this note, however, is an attestation that I personally performed the exam, history, and/or decision-making noted today, and, unless otherwise indicated, the interactions with patient, family, and staff as well as the review of records all occurred today. I also attest that the listed assessment and stated plan reflect my best clinical judgment today based on the combination of historical information, prior notes, and today's exam/ interactions. When time spent is documented, it refers only to time spent today by the signer, or if indicated, combined time spent today by collaborating physician/nurse practitioner. . (Annalee Mahoney) Collaborating MD Comments Chart reviewed. Case discussed with palliative care CARDIOPULMONARY TECHNICIAN. Above CARDIOPULMONARY TECHNICIAN note reviewed and I concur. . (Prabhakar Laurent MD) Annalee Mahoney Jan 18, 2018 16:48 Prabhakar Laurent MD Jan 21, 2018 05:55
--- NOTE | 2018-01-18 23:48 | HHI.NPPN ---
Subjective Renal Failure: Acute Interval History Late entry- seen at 1630 today. Off the floor earlier for MRI, results reviewed. Off vent, more awake but non purposeful movements. He remains oliguric. (Larissa Amin) Review of Systems General General Remarks unable to obtain (Larissa Amin) Objective Data Data 01/18/18 01/19/18 19:00 07:00 Intake Total 1200 ml Output Total 1100 ml Balance 100 ml Tube Feeding 600 ml Tube Irrigant 600 ml Output Urine Total 100 ml Stool Total 1000 ml Vital Signs Date Time Temp Pulse Resp B/P (MAP) Pulse Ox O2 Delivery O2 Flow Rate FiO2 01/18/18 22:00 100 01/18/18 21:26 99 T-piece 28 01/18/18 20:00 97.4 92 20 146/81 (102) 95 01/18/18 20:00 107 01/18/18 18:00 101 01/18/18 16:00 107 01/18/18 16:00 97.4 107 24 144/86 (105) 95 01/18/18 14:00 89 01/18/18 12:55 98 T-piece 6.00 35 01/18/18 12:55 100 100 01/18/18 12:00 30 01/18/18 12:00 92 01/18/18 12:00 98.5 92 22 153/83 (106) 95 01/18/18 11:06 96 30 01/18/18 10:00 118 01/18/18 08:00 99 01/18/18 08:00 99.8 99 19 133/70 (91) 96 01/18/18 08:00 30 01/18/18 07:50 30 01/18/18 07:47 94 30 01/18/18 06:00 116 01/18/18 04:03 95 30 01/18/18 04:00 30 01/18/18 04:00 99.4 116 20 119/70 (86) 95 01/18/18 04:00 123 01/18/18 01:15 93 30 01/18/18 00:00 113 01/18/18 00:00 30 01/18/18 00:00 97.8 110 20 138/72 (94) 96 (Larissa Amin) -: 01/18/18 0500 01/18/18 0500 Imaging Last 72 hours Impressions Brain MRI 01/18/18 0000 Signed Impressions: Service Date/Time: Thursday, January 18, 2018 12:24 - CONCLUSION: 1. Diffuse atrophy. 2. No acute findings seen; severe technical limitations due to patient motion. The diffusion-weighted images are nondiagnostic. Siva Cooley MD Chest X-Ray 01/16/18 0600 Signed Impressions: Service Date/Time: Tuesday, January 16, 2018 04:51 - CONCLUSION: No significant change Andres Drew MD Chest X-Ray 01/16/18 0000 Signed Impressions: Service Date/Time: Tuesday, January 16, 2018 15:02 - CONCLUSION: Tracheostomy in good position. Stable bilateral airspace opacities. Siva Cooley MD Abdomen Ultrasound 01/16/18 0000 Signed Impressions: Service Date/Time: Tuesday, January 16, 2018 09:47 - CONCLUSION: 1. Moderate amount of peritoneal ascites. 2. Pancreas obscured by overlying bowel gas. 3. Otherwise negative. Faisal Tinajero MD Tubes & Lines: Vas-Cath, Hay Tubes & Lines Comment [facility] VC, trach (Larissa Amin) Physical Exam General Appearance Remarks elderly, cachectic, awake off vent trach collar in place mouth open, non purposeful jerking responds to 's voice (Larissa Amin) Eyes Eye Exam: Pupils Equal, Pupils Reactive (Larissa Amin) Neck Neck Exam: Neck Supple Neck Remarks new trach (placed 01/16), not bleeding (Larissa Amin) Pulmonary Resp Exam: Breath Sounds Equal, Decreased Bases Resp Remarks vented, on 40% FiO2. (Larissa Amin) Cardiology CV Exam: Regular, Normal Sinus Rhythm, Good Perfusion (Larissa Amin) Gastrointestinal/Abdomen GI Exam: Soft, Non-Tender, Bowel Sounds Present, Distended (Larissa Amin) Musculoskeletal MS Exam: Normal Tone, Unable to Ambulate (Larissa Amin) Integumentary Skin Exam: Warm, Dry (Larissa Amin) Extremeties Extremities Exam: Pedal Pulses Palpable, Moderate Edema, Pitting Edema, Dependent Edema (Larsisa Amin) Neurologic Neuro Exam: Awake Neuro Remarks non verbal, encephalopathic (Larissa Amin) VTE Prophylaxis Device: SCDs (Larissa Amin) Assessment/Plan Discussed Condition With: Spouse, Daughter, Relative Assessment Summary: CYNDI/Acute Renal Failure, Fluid/Volume Overload, Hypotension Electrolyte Assessment: Hypernatremia, Metabolic Acidosis Problem List: (1) Acute renal failure ICD Codes: N17.9 - Acute kidney failure, unspecified Status: Acute Plan: Normal renal function at baseline Renal failure onset 01/02, ATN most likely due to sepsis and hypotension. Vascath placed and HD initiated 01/16 6L fluid removal past two days HD tomorrow and TTS as needed Repeat labs daily. Await renal recovery. Prognosis is guarded to poor. He is on midodrine Avoid nephrotoxins. Avoid excess IVF. 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 (4) Hypernatremia ICD Codes: E87.0 - Hyperosmolality and hypernatremia Plan: Improved Thiazide diuretics on hold Decrease free water via PEG Follow labs (Larissa Amin) Plan patient was seen and examined. Agree with above assessment and plan. He has been extubated. Oliguric. Discussed with family. Dialysis will be continued. (Tan Christensen MD) Larissa Amin Jan 18, 2018 23:48 Tan Christensen MD Jan 20, 2018 08:19
[2018-01-19] VITALS (13 sets, daily range): BP systolic 124–146; BP diastolic 74–90; PULSE 95–122; RESP 20–26; TEMP 97.4–97.9; O2SAT 94–99
[2018-01-19] MEDS: MIDODRINE 5 MG TAB PO SCH ×3 (02:08→17:19)
[2018-01-19] MEDS: OLANZapine 10 MG TAB PO SCH ×3 (02:08→17:23)
[2018-01-19] MEDS: oxyCODONE HCL ORAL CONC 5 MG/0.25 ML SYRINGE PO SCH ×8 (04:00→23:32)
[2018-01-19] MEDS: ARTIFICIAL TEARS OPTH SOLN 15 ML BTL EACH EYE SCH ×3 (04:08→21:22)
[2018-01-19] MEDS: METOCLOPRAMIDE HCL 10 MG/2 ML VIAL IV PUSH SCH ×3 (04:08→21:22)
[2018-01-19 04:22] LABS: BICARBONATE 22.4 MEQ/L (21.0-32.0); CALCIUM 7.9 MG/DL (8.5-10.1); CREATININE 4.73 MG/DL (0.60-1.30)
[2018-01-19 04:29] LABS: HEMOGLOBIN 7.6 GM/DL (13.0-17.0); MEAN CORPUSCULAR HEMOGLOBIN 28.4 PG (27.0-34.0); MEAN CORPUSCULAR HGB CONC 33.1 % (32.0-36.0); MEAN PLATELET VOLUME 9.9 FL (7.0-11.0); PLATELET COUNT 311 TH/MM3 (150-450); RED BLOOD COUNT 2.67 MIL/MM3 (4.50-5.90); RED CELL DISTRIBUTION WIDTH 18.3 % (11.6-17.2); WHITE BLOOD COUNT 13.4 TH/MM3 (4.0-11.0)
[2018-01-19] MEDS: INSULIN ASPART SUPPLEMENTAL SCALE SQ SCH ×4 (05:02→17:23)
--- NOTE | 2018-01-19 06:16 | RADRPT ---
EXAM DATE/TIME: 01/19/2018 04:08 [facility] COMPARISON: CHEST SINGLE AP, January 16, 2018, 15:02. INDICATIONS : Shortness of breath MEDICAL HISTORY : Chronic obstructive pulmonary disease. Hypertension. lymphoma, stage 3 renal disease. SURGICAL HISTORY : Fusion, lumbar. ENCOUNTER: Subsequent ACUITY: 3 weeks PAIN SCORE: Non-responsive. LOCATION: Bilateral chest FINDINGS: Single AP view of the chest. Tracheostomy tube, left subclavian central venous catheter, and right IJ [id number] remain in place. Increase in bilateral diffuse hazy pulmonary opacity and pulmonary va sculature indistinctness. Increase in small bilateral pleural effusions. No evidence of pneumothorax. Increased size of cardiomediastinal silhouette. CONCLUSION: Increased bilateral pulmonary opacity likely representing pulmonary edema and pleural effusions. Gonzalo Cooper MD on January 19, 2018 at 6:13 Board Certified Radiologist. This report was verified electronically.
[2018-01-19] MEDS: CHLORHEXIDINE 0.12% (ORAL KIT) 15 ML CUP MT SCH ×3 (08:00→21:21)
[2018-01-19] MEDS: FREE WATER G-TUBE SCH ×3 (09:00→17:19)
[2018-01-19] MEDS: BUDESONIDE-FORMOTEROL 160/4.5 MCG INHALER INH SCH ×2 (09:00→21:00)
[2018-01-19] MEDS: SENNOSIDES SYRUP 8.8 MG/5 ML CUP J-TUBE SCH ×2 (09:24→21:00)
[2018-01-19] MEDS: DOCUSATE SODIUM 100 MG/10 ML UDC OG-TUBE SCH ×2 (09:24→21:00)
[2018-01-19] MEDS: ASPIRIN 81 MG CHEW TAB CHEW SCH (09:25)
[2018-01-19] MEDS: SODIUM CHLORIDE 0.9% FLUSH 10 ML FLUSH IV FLUSH SCH ×2 (09:25→21:22)
[2018-01-19] MEDS: predniSONE 10 MG TAB PO SCH ×2 (09:25→21:00)
[2018-01-19] MEDS: MULTIVITAMIN TAB PO SCH (09:25)
[2018-01-19] MEDS: LANSOPRAZOLE SOLUTAB 30 MG TAB G-TUBE SCH ×2 (09:25→21:00)
[2018-01-19] MEDS: HEPARIN SODIUM - SQ 10,000 UNITS/ML VIAL SQ SCH (09:25)
[2018-01-19] MEDS: MEGESTROL ACETATE SUSP 400 MG/10 ML CUP PO SCH (09:31)
[2018-01-19] MEDS: RESP: ALBUTEROL 2.5 MG/IPRATROPIUM 0.5 MG NEB (SCH) INH ×2 (13:13→19:52)
--- NOTE | 2018-01-19 15:26 | HHI.CCPN ---
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 On 12/25 patient received chemotherapy -CHOP regimen. Hospitalization further significant for PEG placement due to malnutrition and lack of appetite and thoracentesis for pleural effusion. Patient was being followed by pulmonary, cardiology and hematology services. Over the night patient had increased O2 requirements with high tube feed residual and concern for aspiration. A rapid response was called earlier this afternoon for worsening hypoxia despite NRM. Patient was emergently intubated and upon intubation he was found to have significant amount of tube feeds in the airway. An NG tube was placed on suction with 750 cc suctioned from the stomach. Patient was started on midazolam and fentanyl drips and phenylephrine for BP support. Patient was seen immediately on ICU arrival, 100% O2 with SPO2 100%. Patient requires 20 mics per minute of phenylephrine infusion. He is intubated and sedated, unresponsive. 01/02: No events over the night. Patient remains critically ill. He is currently sedated and intubated. He remains on phenylephrine at 80 mics per minute. FiO2 down to 0.6. T-max 98.6, I/O 1550/400. 01/03: Patient did well over the night. Norepinephrine weaned off. FiO2 currently at 0.5. Patient remains on a PEEP of 10. Sedation accomplished with propofol and fentanyl. Tmax 98.4. 01/04: Multiple episodes of diarrhea overnight. No C. difficile sent. Urine output decreased, 300 mL's over last 12 hours. Patient does not require any pressors, sedation is maintained with propofol at 30 and fentanyl at 150. During sedation vacation patient moves all extremities, agitated, but does not follow commands. Currently he is sedated and intubated. Morning chest x-ray reviewed, slight improvement in bibasilar infiltrates. 01/05: No events over the night. T-max of 98.6. Urine output 550 mL's over the last 24 hours. Ventilator on 0.4 FiO2. Sedation was stopped this morning, patient agitated moving all extremities but not following commands. Morning chest x-ray reviewed, no significant change compared to yesterday's, ET tube approximately 7 cm above clem. 01/06: Patient remains afebrile, on no pressors. Oxygenation down to 0.4 FiO2, but PEEP remains at 10. Trickle feeds started yesterday, still having residuals. Patient remains on low-dose propofol and fentanyl for sedation. Morning chest x-ray reviewed, still with bibasilar opacities, unchanged. 01/07: Remains sedated, orally intubated on mechanical ventilation. Fentanyl at 150 mics per minute decreased to 50 mics per minute. Abdomen remains distended. Tolerating tube feeds at 20 cc/h with residual 60 cc. 01/08: Sedated, orally intubated on mechanical ventilation. Had large amount of BM last night following Relistor. On tube feeds at 20 cc per hour. 01/09: Currently on propofol drip at 40 mcg/kg/min. Afebrile. GJ tube per IR yesterday. Tube feeds were restarted. at bedside. Continue to diuresis furosemide/albumin 01/10: Currently off all sedation. Transitioning to dexmedetomidine drip. Tolerating tube feeds via GJ tube. Positive BM. Creatinine up to 3.1. Blinks eyes to commands but not moving extremities. Withdraws to pain. 01/11: Afebrile. Long discussion with . Nephrology wishes to initiate hemodialysis today. Benefits and risks discussed. She wishes to wait another day to see if he has any significant recovery. Nephrology will give extra furosemide today. 01/12: More awake today. Follows commands. Eyes are open. Moves all 4 extremities spontaneously. does not wish to pursue hemodialysis today. Requesting decreasing furosemide drip to 2.5 mg/h due to "elevated BUN". 01/13: Intubated this a.m. due to acute hypoxic hypercapnic respiratory failure/ actively aspirating. Follow-up chest x-ray and ABG pending. Discussed with at bedside. A.m. laboratories all pending 01/14: Resting in bed in no acute distress. Long discussion with regarding worsening pleural effusions and need for hemodialysis. She will discuss with her family friend and Dr. Blevins. 01/15: Afebrile. Currently resting in bed in no acute distress. Long discussion with . Currently wishes to's second opinion for nephrology. We will performed today. 01/16: afebrile. failed trial of Precedex for agitation. now back on propofol. I started discussions about trach today: failed extubation and now 20kg up- will not successfully wean with current deconditioning, volume overload, renal failure, and likely large component of uremic encephalopathy. overall worsening renal function persists. Subjective 01/17: s/p trach yesterday. less agitated today. also s/p dialysis yesterday. no meaningful improvements in mental status. 01/18: Stronger on SBTs today at 5/5, will try T-piece. Prealbumin 25 reflects adequate nutritional support however he remains severely debilitated. 01/19: Tolerating T-piece full-time. Objective Vital Signs Date Time Temp Pulse Resp B/P (MAP) Pulse Ox O2 Delivery O2 Flow Rate FiO2 01/19/18 08:07 98 T-piece 28 01/19/18 06:00 95 01/19/18 04:00 97.4 20 143/79 (100) 01/18/18 12:55 6.00 Intake and Output 01/19/18 01/19/18 01/20/18 08:00 16:00 00:00 Intake Total 1000 ml Output Total 275 ml Balance 725 ml Result Diagram: 01/19/18 0335 01/19/18 0335 Imaging Last Impressions Chest X-Ray 01/15/18 0600 Signed Impressions: Service Date/Time: Monday, January 15, 2018 04:54 - CONCLUSION: Stable aeration Andres Drew MD Lower Extremity Ultrasound 01/15/18 0000 Signed Impressions: Service Date/Time: Monday, January 15, 2018 18:00 - CONCLUSION: Normal examination. Elbert Carrasquillo MD Abdomen X-Ray 01/15/18 0000 Signed Impressions: Service Date/Time: Monday, January 15, 2018 15:06 - CONCLUSION: Nonspecific, nonobstructive bowel gas pattern. PEG tube present. Andres Parekh MD Gastrostomy Tube Change 01/08/18 0000 Signed Impressions: Service Date/Time: Monday, January 08, 2018 14:35 - CONCLUSION: Conversion of the patient's existing gastrostomy tube to a gastrojejunostomy tube. Siva Bean Jr., MD Renal Ultrasound 01/05/18 0000 Signed Impressions: Service Date/Time: Friday, January 05, 2018 08:00 - CONCLUSION: Echogenic kidneys suggesting medical renal disease. Some ascites. Bilateral pleural effusions. Lee Mijares MD Head CT 01/05/18 0000 Signed Impressions: Service Date/Time: Friday, January 05, 2018 11:41 - CONCLUSION: 1. No acute abnormality is seen. 2. Old lacunar infarct at the left basal ganglia. 3. Fluid in the mastoid air cells on the right. Andres Valero MD Small Bowel X-Ray 01/03/18 0000 Signed Impressions: Service Date/Time: December 14:27 - CONCLUSION: 1. No leakage identified on injection through gastrostomy tube. No small bowel obstruction or significant dilatation. Elbert Carrasquillo MD Abdomen/Pelvis CT 01/02/18 0000 Signed Impressions: Service Date/Time: Tuesday, January 02, 2018 21:38 - CONCLUSION: 1. Free intraperitoneal air of unknown etiology. On the supine view most of the free air is around the gastrostomy tube and tip of the nasogastric tube as discussed above. 2. Mild to moderate ascites. Moderate anasarca. 3. Moderate bilateral effusions with basilar atelectasis. 4. Nonobstructing right renal calculus. Hay catheter in bladder. Elbert Carrasquillo MD Chest CT 12/30/17 0000 Signed Impressions: Service Date/Time: Saturday, December 30, 2017 21:13 - CONCLUSION: 1. Free intraperitoneal air in the upper abdomen of uncertain etiology. There is a gastrostomy present. 2. Moderate bilateral pleural effusions with compressive atelectasis. Patchy air space consolidation in the right upper lobe. 3. Moderate anasarca and ascites. 4. Findings called to the floor at the time of dictation. Elbert Carrasquillo MD Chest Ultrasound 12/27/17 0000 Signed Impressions: Service Date/Time: December 21:39 - CONCLUSION: Large left pleural effusion and would be amenable to thoracentesis. Frandy was made on the overlying skin. Andres Parekh MD Bone Biopsy CT 12/25/17 1142 Signed Impressions: Service Date/Time: Monday, December 25, 2017 12:32 - CONCLUSION: 1. Uncomplicated CT guided bone marrow aspirate. 2. Uncomplicated CT guided bone marrow biopsy. Lee Mijares MD CT Angiography 12/25/17 0000 Signed Impressions: Service Date/Time: Monday, December 25, 2017 09:26 - CONCLUSION: 1. No CT evidence for pulmonary artery embolism. 2. Moderate to large bilateral pleural effusions with associated compressive atelectasis at the lung bases. 3. 8mm nodule in the right middle lobe. Followup CT examination may be performed at 6 months to document stability if this has not been evaluated previously. 4. Very mildly prominent mediastinal and hilar nodes and partially imaged upper abdominal lymphadenopathy in this patient with history of lymphoma. Miguel Ashton MD Objective Remarks General -72-year-old male, tracheally intubated HEENT - pupils are equal, reactive about 2 mm bilaterally, neck is supple, no rigidity. trach site clean. CV -RRR with occasional pmb. sinus. neck veins full. Chest -equal chest rise, [id number] right chest -site remains clean. prvc fio2 40% Abdomen - soft, obese, protuberant. + GJ tube. bs present. Extremities - 2+ edema, anasarca, + peripheral pulses, warm, no cyanosis Neuro - intubated, pupils equal and reactive, grimaces to pain. Moves head side to side when light. Date of Insertion: Jan 01, 2018 Date of Removal: Jan 12, 2018 A/P Assessment and Plan Assessment: 72yM with new diagnosis of lymphoma, course complicated by recurrent hypoxic respiratory failure, severe volume overload, acute kidney injury, multiorgan failure, shock, and severe acute protein calorie malnutrition. prognosis at this point is poor. I do not think he will survive this illness. Family continues to press for aggressive measures and FULL CODE status. now s/p trach and vascath. Now that he is on dialysis, his acute medical problems are controlled- he certainly will need weaning from mechanical ventilation and strengthening before his lymphoma can be managed. will begin seeking placement for him. 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 still agitated Goal of RASS -2 - [address] brain 01/05 revealed old left basal CVA. hold on MRI. likely uremic encephalopathy will start zyprexa 10mg po q8h to help with agitation. wean propofol as tolerated. CV: Hypertension Dyslipidemia 2D echocardiogram revealed EF 65-70%. Tricuspid regurgitation. PA P 38 mmHg He is on aspirin 81 mg p.o. daily continue midodrine in an effort to wean off vasopressors. Resp: Acute hypoxic hypercapnic respiratory failure secondary to aspiration pneumonia Right middle lobe pulmonary nodule 8 mm recommend 6 month follow-up CT chest COPD PRVC, full support. 35% fio2. daily SBT. Ventilator bundle Patient written for budesonide/formoterol 160/4.5 2 puffs twice daily. Albuterol/ipratropium aerosols every 6 hours with albuterol aerosols every 2 hours as needed dyspnea On prednisone [address] Blevins/pulmonology is following s/p trach 01/[address] Graf GI: Status post GJ conversion by IR 01/08 Hypoalbuminemia Acute protein calorie malnutrition - severe. Lansoprazole 30 mg twice daily for GI prophylaxis Docusate sodium liquid 100 mg twice daily for bowel regimen On Megestrol 800 mg daily for anorexia Nutrition recommends vital 1.5 goal 60 cc an hour.. On Nepro at 50 cc an hour due to renal failure prealbumin 25 on 01/16. check prealbumin qweek. : Hay catheter for accurate I's and O's in a critically ill patient: keep. needing accurate i/o's in acute oliguric renal failure. Endo: Sliding scale insulin to maintain euglycemia/low regimen every 6 hours TSH is 1.18 Renal: Acute kidney injury likely secondary to sepsis/ATN Right-sided nephrolithiasis Urine eosinophils negative. Renal ultrasound reveals medical renal disease and prior CT abdomen/pelvis revealed non-obstructing right renal stones. Followed by nephrology Avoid nephrotoxic medication Off furosemide drip. Currently in free water 300 cc every 6 and chlorothiazide 500 mg IV 1. Nephrology to guide renal therapies. 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 Followed by hematology. currently not stable enough for chemotherapy. would be a candidate if he ever stabilized, but I do not see this as a functional reality. unlikely to tolerate future chemotherapies. No indication for transfusion of blood products at this time ID: Followed by infectious disease for prescribing medication FEN: Hypernatremia d/c Free water 300 cc every 6 hours Replace electrolytes as clinically indicated MSK: Sacral decubitus ulcer Wound care management Access Left IJ CVL placed 01/01 - 01/10 Right Gegwby-h-Fyav placed 12/20/17 Prophylaxis -GI -lansoprazole -DVT -SCD/heparin subcu Overall impression: Severely debilitated and deconditioned despite improving chemical nutritional measurements. Tolerating T-piece, soon be able to go to SNF. Keny Zuniga MD Jan 19, 2018 15:26
--- NOTE | 2018-01-19 16:32 | HHI.NPPN ---
Subjective Renal Failure: Acute Review of Systems General General Remarks unable to obtain Objective Data Data Vital Signs Date Time Temp Pulse Resp B/P (MAP) Pulse Ox O2 Delivery O2 Flow Rate FiO2 01/19/18 16:00 103 01/19/18 16:00 97.7 111 20 124/75 (91) 96 01/19/18 14:00 98 01/19/18 12:00 97.9 110 26 141/75 (97) 98 01/19/18 12:00 110 01/19/18 10:00 96 01/19/18 08:07 98 T-piece 28 01/19/18 08:00 110 01/19/18 08:00 97.7 110 26 146/87 (106) 98 01/19/18 06:00 95 01/19/18 04:00 95 01/19/18 04:00 97.4 95 20 143/79 (100) 97 01/19/18 00:00 97.4 108 20 135/74 (94) 94 01/19/18 00:00 100 01/18/18 22:00 100 01/18/18 21:26 99 T-piece 28 01/18/18 20:00 97.4 92 20 146/81 (102) 95 01/18/18 20:00 107 01/18/18 18:00 101 -: 01/19/18 0335 01/19/18 0335 Tubes & Lines: Vas-Cath, Hay Tubes & Lines Comment LIJ VC, trach Physical Exam Eyes Eye Exam: Pupils Equal, Pupils Reactive Neck Neck Exam: Neck Supple Pulmonary Resp Exam: Breath Sounds Equal, Decreased Bases Cardiology CV Exam: Regular, Normal Sinus Rhythm, Good Perfusion Gastrointestinal/Abdomen GI Exam: Soft, Non-Tender, Bowel Sounds Present, Distended Musculoskeletal MS Exam: Normal Tone, Unable to Ambulate Integumentary Skin Exam: Warm, Dry Extremeties Extremities Exam: Pedal Pulses Palpable, Moderate Edema, Pitting Edema, Dependent Edema Neurologic Neuro Exam: Awake VTE Prophylaxis Device: SCDs Assessment/Plan Discussed Condition With: Spouse, Daughter, Relative Assessment Summary: CYNDI/Acute Renal Failure, Fluid/Volume Overload, Hypotension Electrolyte Assessment: Hypernatremia, Metabolic Acidosis Problem List: (1) Acute renal failure ICD Codes: N17.9 - Acute kidney failure, unspecified Status: Acute Plan: Normal renal function at baseline Renal failure onset 01/02, ATN most likely due to sepsis and hypotension. Vascath placed and HD initiated 01/16 6L fluid removal past two days HD TTS as needed Repeat labs daily. Await renal recovery. Prognosis is guarded to poor. 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 (4) Hypernatremia ICD Codes: E87.0 - Hyperosmolality and hypernatremia Plan: Improved Thiazide diuretics on hold Decrease free water via PEG Follow labs Hannah Carver MD Jan 19, 2018 16:32
[2018-01-19] MEDS: ALBUMIN 25% INJ 100 ML IV PRN (19:26)
[2018-01-19] MEDS: HEPARIN SODIUM - IV 10,000 UNITS/10 ML VIAL PRN (19:28)
[2018-01-19] MEDS: GENTAMICIN SULFATE 20 MG/2 ML VIAL OTHER PRN (19:29)
[2018-01-19 21:19] LABS: AUTOMATED NEUTROPHIL # 14.6 TH/MM3 (1.8-7.7); BASOPHIL % 0.3 % (0.0-2.0); HEMATOCRIT 23.8 % (39.0-51.0); HEMOGLOBIN 7.9 GM/DL (13.0-17.0); LYMPH % 1.2 % (9.0-44.0); LYMPHOCYTE # 0.2 TH/MM3 (1.0-4.8); MEAN CORPUSCULAR HEMOGLOBIN 28.5 PG (27.0-34.0); MEAN CORPUSCULAR HGB CONC 33.2 % (32.0-36.0); MEAN PLATELET VOLUME 9.7 FL (7.0-11.0); MONO % 5.2 % (0.0-8.0); MONOCYTE # 0.8 TH/MM3 (0-0.9); NEUT % 93.3 % (16.0-70.0); PLATELET COUNT 348 TH/MM3 (150-450); RED BLOOD COUNT 2.77 MIL/MM3 (4.50-5.90); RED CELL DISTRIBUTION WIDTH 19.1 % (11.6-17.2); WHITE BLOOD COUNT 15.6 TH/MM3 (4.0-11.0)
[2018-01-19 21:32] LABS: INTERNATIONAL NORMALIZED RATIO 1.1 RATIO; PROTHROMBIN TIME - PATIENT 11.1 SEC (9.8-11.6)
[2018-01-19 21:58] LABS: BANDS 9 % (0-6); LYMPHOCYTES 2 % (9-44); MONOCYTES 6 % (0-8); NEUTROPHIL # MANUAL DIFF 14.4 TH/MM3 (1.8-7.7); POLYS (SEG NEUTROPHILS) 83 % (16-70)
[2018-01-20] VITALS (14 sets, daily range): BP systolic 129–147; BP diastolic 68–83; PULSE 86–116; RESP 15–28; TEMP 97.4–99; O2SAT 96–100
[2018-01-20] MEDS: MIDODRINE 5 MG TAB PO SCH ×3 (00:49→17:00)
[2018-01-20] MEDS: OLANZapine 10 MG TAB PO SCH ×3 (00:49→18:00)
[2018-01-20] MEDS: oxyCODONE HCL ORAL CONC 5 MG/0.25 ML SYRINGE PO SCH ×5 (03:07→20:00)
[2018-01-20] MEDS: ARTIFICIAL TEARS OPTH SOLN 15 ML BTL EACH EYE SCH ×3 (05:19→22:00)
[2018-01-20] MEDS: METOCLOPRAMIDE HCL 10 MG/2 ML VIAL IV PUSH SCH ×3 (05:19→22:05)
[2018-01-20] MEDS: INSULIN ASPART SUPPLEMENTAL SCALE SQ SCH ×4 (06:00→18:00)
[2018-01-20 06:08] LABS: HEMATOCRIT 21.5 % (39.0-51.0); HEMOGLOBIN 7.2 GM/DL (13.0-17.0); MEAN CELL VOLUME 86.3 FL (80.0-100.0); MEAN CORPUSCULAR HGB CONC 33.6 % (32.0-36.0); MEAN PLATELET VOLUME 9.2 FL (7.0-11.0); PLATELET COUNT 294 TH/MM3 (150-450); RED BLOOD COUNT 2.49 MIL/MM3 (4.50-5.90); RED CELL DISTRIBUTION WIDTH 18.8 % (11.6-17.2); WHITE BLOOD COUNT 12.7 TH/MM3 (4.0-11.0)
[2018-01-20 07:22] LABS: BICARBONATE 24.3 MEQ/L (21.0-32.0); CALCIUM 8.4 MG/DL (8.5-10.1); CREATININE 4.2 MG/DL (0.60-1.30)
[2018-01-20] MEDS: RESP: ALBUTEROL 2.5 MG/IPRATROPIUM 0.5 MG NEB (SCH) INH ×3 (07:54→19:42)
[2018-01-20] MEDS: CHLORHEXIDINE 0.12% (ORAL KIT) 15 ML CUP MT SCH ×2 (08:00→22:06)
[2018-01-20] MEDS: FREE WATER G-TUBE SCH ×3 (08:52→18:00)
[2018-01-20] MEDS: BUDESONIDE-FORMOTEROL 160/4.5 MCG INHALER INH SCH ×2 (08:53→21:00)
[2018-01-20] MEDS: SENNOSIDES SYRUP 8.8 MG/5 ML CUP J-TUBE SCH ×2 (08:53→21:00)
[2018-01-20] MEDS: SODIUM CHLORIDE 0.9% FLUSH 10 ML FLUSH IV FLUSH SCH ×2 (08:53→22:06)
[2018-01-20] MEDS: DOCUSATE SODIUM 100 MG/10 ML UDC OG-TUBE SCH ×2 (08:53→22:06)
[2018-01-20] MEDS: MULTIVITAMIN TAB PO SCH (08:54)
[2018-01-20] MEDS: MEGESTROL ACETATE SUSP 400 MG/10 ML CUP PO SCH (08:54)
[2018-01-20] MEDS: predniSONE 10 MG TAB PO SCH ×2 (08:55→22:06)
[2018-01-20] MEDS: LANSOPRAZOLE SOLUTAB 30 MG TAB G-TUBE SCH ×2 (08:55→22:06)
--- NOTE | 2018-01-20 16:21 | HHI.PR ---
Subjective Remarks Follow up for respiratory failure, lymphoma and acute renal failure. Patient is resting in bed, at bedside. Tolerating T-Piece. Appears to respond slightly with eye movements and by mouthing some words. Objective Vitals Vital Signs Date Time Temp Pulse Resp B/P (MAP) Pulse Ox O2 Delivery O2 Flow Rate FiO2 01/20/18 08:00 105 01/20/18 07:54 97 T-piece 28 01/20/18 06:00 108 01/20/18 04:00 97.4 110 28 143/75 (97) 98 01/20/18 04:00 103 01/20/18 02:00 86 01/20/18 00:00 112 01/20/18 00:00 97.9 92 26 147/68 (94) 98 01/19/18 22:00 118 01/19/18 20:00 114 01/19/18 20:00 112 26 137/90 (106) 99 01/19/18 20:00 97.6 112 26 137/90 (106) 99 01/19/18 19:58 98 T-piece 28 01/19/18 18:00 122 I/O 01/19/18 01/19/18 01/19/18 01/20/18 01/20/18 01/20/18 07:00 15:00 23:00 07:00 15:00 23:00 Intake Total 1000 ml 1133 ml 60 ml Output Total 275 ml 4000 ml 450 ml Balance 725 ml -2867 ml -390 ml Intake Oral 0 ml Tube Feeding 600 ml 733 ml 0 ml Other 400 ml 400 ml 60 ml Output Urine Total 75 ml 200 ml 50 ml Stool Total 200 ml 200 ml 200 ml Gastric Drainage Total 200 ml Hemodialysis 3600 ml Result Diagram: 01/20/18 0545 01/20/18 0545 Imaging Last Impressions Chest X-Ray 01/19/18 0600 Signed Impressions: Service Date/Time: Friday, January 19, 2018 04:08 - CONCLUSION: Increased bilateral pulmonary opacity likely representing pulmonary edema and pleural effusions. Gonzalo Cooper MD Brain MRI 01/18/18 0000 Signed Impressions: Service Date/Time: Thursday, January 18, 2018 12:24 - CONCLUSION: 1. Diffuse atrophy. 2. No acute findings seen; severe technical limitations due to patient motion. The diffusion-weighted images are nondiagnostic. Siva Cooley MD Abdomen Ultrasound 01/16/18 Signed Impressions: Service Date/Time: Tuesday, January 16, 2018 09:47 - CONCLUSION: 1. Moderate amount of peritoneal ascites. 2. Pancreas obscured by overlying bowel gas. 3. Otherwise negative. Faisal Tinajero MD Lower Extremity Ultrasound 01/15/18 Signed Impressions: Service Date/Time: Monday, January 15, 2018 18:00 - CONCLUSION: Normal examination. Elbert Carrasquillo MD Abdomen X-Ray 01/15/18 Signed Impressions: Service Date/Time: Monday, January 15, 2018 15:06 - CONCLUSION: Nonspecific, nonobstructive bowel gas pattern. PEG tube present. Andres Parekh MD Gastrostomy Tube Change 01/08/18 Signed Impressions: Service Date/Time: Monday, January 08, 2018 14:35 - CONCLUSION: Conversion of the patient's existing gastrostomy tube to a gastrojejunostomy tube. Siva Bean Jr., MD Renal Ultrasound 01/05/18 Signed Impressions: Service Date/Time: Friday, January 05, 2018 08:00 - CONCLUSION: Echogenic kidneys suggesting medical renal disease. Some ascites. Bilateral pleural effusions. Lee Mijares MD Head CT 01/05/18 Signed Impressions: Service Date/Time: Friday, January 05, 2018 11:41 - CONCLUSION: 1. No acute abnormality is seen. 2. Old lacunar infarct at the left basal ganglia. 3. Fluid in the mastoid air cells on the right. Andres Valero MD Small Bowel X-Ray 01/03/18 Signed Impressions: Service Date/Time: December 14:27 - CONCLUSION: 1. No leakage identified on injection through gastrostomy tube. No small bowel obstruction or significant dilatation. Elbert Carrasquillo MD Abdomen/Pelvis CT 01/02/18 0000 Signed Impressions: Service Date/Time: Tuesday, January 02, 2018 21:38 - CONCLUSION: 1. Free intraperitoneal air of unknown etiology. On the supine view most of the free air is around the gastrostomy tube and tip of the nasogastric tube as discussed above. 2. Mild to moderate ascites. Moderate anasarca. 3. Moderate bilateral effusions with basilar atelectasis. 4. Nonobstructing right renal calculus. Hay catheter in bladder. Elbert Carrasquillo MD Chest CT 12/30/17 0000 Signed Impressions: Service Date/Time: Saturday, December 30, 2017 21:13 - CONCLUSION: 1. Free intraperitoneal air in the upper abdomen of uncertain etiology. There is a gastrostomy present. 2. Moderate bilateral pleural effusions with compressive atelectasis. Patchy air space consolidation in the right upper lobe. 3. Moderate anasarca and ascites. 4. Findings called to the floor at the time of dictation. Elbert Carrasquillo MD Chest Ultrasound 12/27/17 0000 Signed Impressions: Service Date/Time: December 21:39 - CONCLUSION: Large left pleural effusion and would be amenable to thoracentesis. Frandy was made on the overlying skin. Andres Parekh MD Bone Biopsy CT 12/25/17 1142 Signed Impressions: Service Date/Time: Monday, December 25, 2017 12:32 - CONCLUSION: 1. Uncomplicated CT guided bone marrow aspirate. 2. Uncomplicated CT guided bone marrow biopsy. Lee Mijares MD CT Angiography 12/25/17 0000 Signed Impressions: Service Date/Time: Monday, December 25, 2017 09:26 - CONCLUSION: 1. No CT evidence for pulmonary artery embolism. 2. Moderate to large bilateral pleural effusions with associated compressive atelectasis at the lung bases. 3. 8mm nodule in the right middle lobe. Followup CT examination may be performed at 6 months to document stability if this has not been evaluated previously. 4. Very mildly prominent mediastinal and hilar nodes and partially imaged upper abdominal lymphadenopathy in this patient with history of lymphoma. Miguel Ashton MD Objective Remarks GENERAL: Alert, NAD. SKIN: Warm and dry. HEAD: Normocephalic. EYES: No scleral icterus. No injection or drainage. NECK: On T-Piece, No JVD or lymphadenopathy. CARDIOVASCULAR: Regular rate and rhythm without murmurs, gallops, or rubs. RESPIRATORY: Breath sounds equal bilaterally. No accessory muscle use. GASTROINTESTINAL: Abdomen soft, non-tender, nondistended. MUSCULOSKELETAL: No cyanosis 3+ lower ext edema. BACK: Nontender without obvious deformity. No CVA tenderness. Procedures 01/16/2018 Percutaneous tracheostomy placement. 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 prognosis at this point is poor. I do not think he will survive this illness. Family continues to press for aggressive measures and FULL CODE status. now s/p trach and vascath. Now that he is on dialysis, his acute medical problems are controlled- he certainly will need weaning from mechanical ventilation and strengthening before his lymphoma can be managed. will begin seeking placement for him. 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 hold on MRI. likely uremic encephalopathy will start zyprexa 10mg po q8h to help with agitation. CV: Hypertension Dyslipidemia 2D echocardiogram revealed EF 65-70%. Tricuspid regurgitation. PA P 38 mmHg Currently normotensive. Resp: Acute hypoxic hypercapnic respiratory failure secondary to aspiration pneumonia Right middle lobe pulmonary nodule 8 mm recommend 6 month follow-up CT chest COPD Patient written for budesonide/formoterol 160/4.5 2 puffs twice daily. Albuterol/ipratropium aerosols every 6 hours with albuterol aerosols every 2 hours as needed dyspnea On prednisone [address] Blevins/pulmonology is following s/p trach 01/[address] Graf GI: Status post GJ conversion by IR 01/08 Hypoalbuminemia Acute protein calorie malnutrition - severe. Lansoprazole 30 mg twice daily for GI prophylaxis Docusate sodium liquid 100 mg twice daily for bowel regimen On Megestrol 800 mg daily for anorexia Nutrition recommends vital 1.5 goal 60 cc an hour. G-tube drainage is slowing down. If it does not drain much, we will re-start tube feed 01/20/2018. prealbumin 25 on 01/16. : Hay catheter for accurate I's and O's in a critically ill patient: keep. needing accurate i/o's in acute oliguric renal failure. Endo: Sliding scale insulin to maintain euglycemia/low regimen every 6 hours TSH is 1.18 Renal: Acute kidney injury likely secondary to sepsis/ATN Right-sided nephrolithiasis Urine eosinophils negative. Renal ultrasound reveals medical renal disease and prior CT abdomen/pelvis revealed non-obstructing right renal stones. Followed by nephrology Avoid nephrotoxic medication Currently in free water 300 cc every 6 and chlorothiazide 500 mg IV 1. Nephrology to guide renal therapies. 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 Followed by hematology. currently not stable enough for chemotherapy. would be a candidate if he ever stabilized, but I do not see this as a functional reality. unlikely to tolerate future chemotherapies. No indication for transfusion of blood products at this time ID: ID recommended discontinuation of all abx on 01/15/2018. Patient has been afebrile so far. FEN: Hypernatremia d/c Free water 300 cc every 6 hours Replace electrolytes as clinically indicated MSK: Sacral decubitus ulcer Wound care management Prophylaxis -GI -lansoprazole -DVT -SCD/heparin subcu Madhu Ibarra DO Jan 20, 2018 16:21
[2018-01-21] VITALS (16 sets, daily range): BP systolic 136–158; BP diastolic 70–88; PULSE 84–120; RESP 17–26; TEMP 97.3–98.5; O2SAT 93–98
[2018-01-21] MEDS: MIDODRINE 5 MG TAB PO SCH ×3 (00:58→17:00)
[2018-01-21] MEDS: OLANZapine 10 MG TAB PO SCH ×3 (02:00→18:00)
[2018-01-21] MEDS: oxyCODONE HCL ORAL CONC 5 MG/0.25 ML SYRINGE PO SCH ×7 (03:10→23:24)
[2018-01-21] MEDS: ARTIFICIAL TEARS OPTH SOLN 15 ML BTL EACH EYE SCH ×3 (05:34→20:28)
[2018-01-21] MEDS: INSULIN ASPART SUPPLEMENTAL SCALE SQ SCH ×5 (05:34→23:26)
[2018-01-21] MEDS: METOCLOPRAMIDE HCL 10 MG/2 ML VIAL IV PUSH SCH ×3 (05:37→21:01)
[2018-01-21 05:39] LABS: MEAN CELL VOLUME 86.8 FL (80.0-100.0); MEAN CORPUSCULAR HEMOGLOBIN 28.5 PG (27.0-34.0); MEAN CORPUSCULAR HGB CONC 32.8 % (32.0-36.0); MEAN PLATELET VOLUME 9.4 FL (7.0-11.0); PLATELET COUNT 274 TH/MM3 (150-450); RED BLOOD COUNT 2.34 MIL/MM3 (4.50-5.90); RED CELL DISTRIBUTION WIDTH 18.7 % (11.6-17.2); WHITE BLOOD COUNT 13.5 TH/MM3 (4.0-11.0)
[2018-01-21 05:49] LABS: HEMATOCRIT 20.3 % (39.0-51.0); HEMOGLOBIN 6.7 GM/DL (13.0-17.0)
[2018-01-21] MEDS ORDERED: SODIUM CHLOR 0.9% 250 ML INJ 250 ML IV ONE (06:00)
[2018-01-21] MEDS ORDERED: FUROSEMIDE 20 MG/2 ML VIAL IV PUSH ONE (06:00)
[2018-01-21 06:22] LABS: BICARBONATE 23.8 MEQ/L (21.0-32.0); CALCIUM 8.4 MG/DL (8.5-10.1); CREATININE 4.94 MG/DL (0.60-1.30)
[2018-01-21] MEDS: RESP: ALBUTEROL 2.5 MG/IPRATROPIUM 0.5 MG NEB (SCH) INH ×3 (08:10→19:34)
[2018-01-21] MEDS: SODIUM CHLORIDE 0.9% FLUSH 10 ML FLUSH IV FLUSH SCH ×2 (09:00→20:21)
[2018-01-21] MEDS: FREE WATER G-TUBE SCH ×3 (09:00→18:00)
[2018-01-21] MEDS: BUDESONIDE-FORMOTEROL 160/4.5 MCG INHALER INH SCH ×2 (09:00→20:28)
[2018-01-21] MEDS: CHLORHEXIDINE 0.12% (ORAL KIT) 15 ML CUP MT SCH ×2 (10:16→20:22)
[2018-01-21] MEDS: predniSONE 10 MG TAB PO SCH ×2 (10:16→20:21)
[2018-01-21] MEDS: SENNOSIDES SYRUP 8.8 MG/5 ML CUP J-TUBE SCH ×2 (10:17→20:21)
[2018-01-21] MEDS: DOCUSATE SODIUM 100 MG/10 ML UDC OG-TUBE SCH ×2 (10:17→20:21)
[2018-01-21] MEDS: MEGESTROL ACETATE SUSP 400 MG/10 ML CUP PO SCH (10:17)
[2018-01-21] MEDS: LANSOPRAZOLE SOLUTAB 30 MG TAB G-TUBE SCH ×2 (10:17→20:21)
[2018-01-21] MEDS: MULTIVITAMIN TAB PO SCH (10:17)
--- NOTE | 2018-01-21 13:04 | HHI.PR ---
Subjective Remarks .He is awake and on a T Bar 30 %. X ray chest shows Bilateral infiltrates. Still weak and responds to commands. On dialysis Objective Vital Signs Date Time Temp Pulse Resp B/P (MAP) Pulse Ox O2 Delivery O2 Flow Rate FiO2 01/21/18 10:00 102 01/21/18 09:33 98.5 110 24 158/73 97 01/21/18 08:42 98.4 108 22 143/76 98 01/21/18 08:14 95 T-piece 5.00 28 01/21/18 08:00 108 01/21/18 06:00 114 01/21/18 04:00 98 01/21/18 04:00 97.3 98 21 141/77 (98) 93 01/21/18 02:00 92 01/21/18 00:00 110 01/21/18 00:00 97.3 110 21 155/82 (106) 93 01/20/18 22:00 116 01/20/18 20:00 99 01/20/18 20:00 99.0 99 15 129/79 (96) 96 01/20/18 19:42 100 T-piece 28 01/20/18 18:00 102 01/20/18 16:00 109 01/20/18 16:00 98.0 109 21 136/78 (97) 99 01/20/18 14:00 91 I/O 01/20/18 01/20/18 01/20/18 01/21/18 01/21/18 01/21/18 07:00 15:00 23:00 07:00 15:00 23:00 Intake Total 60 ml 660 ml 133 ml 500 ml Output Total 450 ml 675 ml 275 ml Balance -390 ml -15 ml -142 ml 500 ml Intake Oral 0 ml 0 ml Tube Feeding 0 ml 60 ml 133 ml Packed Cells 400 ml Blood Product IV Normal Saline Flush 100 ml Other 60 ml 600 ml Output Urine Total 50 ml 175 ml 175 ml Stool Total 200 ml 100 ml 100 ml Gastric Drainage Total 200 ml 400 ml Result Diagram: 01/21/18 0500 01/21/18 0500 Procedures PEG tube placement. Bone Marrow Biopsy 12/25/17 Objective Remarks General appearance: This elderly white male is , on a T Bar O2 HEENT: Head normocephalic. Pupils reactive. Throat was clear. Neck: No bruits or thyroid enlargement or lymphadenopathy. Chest: Distant breath sounds with crackles at both lung bases. Occ wheezes . Cardiovascular: The heart sounds are regular, S1 and S2. No murmur. No S3. Abdomen: Is soft, benign. No masses. Extremities: 1 + edema. Pt is Lethargic. Assessment and Plan Assessment and Plan IMPRESSION: 1. Bibasilar pleural effusions with atelectasis. 2. History of hypertension. 3. Hyperlipidemia. 4. COPD, emphysema. 5. History of Anaplastic NHL . 6. Respiratory Failure, Recurrent Plan : 1. Cont T Bar FIo2 30 % 2 For dialysis in am 3. Prednisone 10 mg daily 4. Nebs qid , duoneb. 5. Continue Tube feeds at 50 Cc 6. CBC,BMP in am 7. Rehab soon 8. D/W family at length Katiuska Blevins MD Jan 21, 2018 13:04
[2018-01-21 14:14] LABS: HEMATOCRIT 24.2 % (39.0-51.0); HEMOGLOBIN 8.2 GM/DL (13.0-17.0)
--- NOTE | 2018-01-21 14:37 | HHI.NPPN ---
Subjective Renal Failure: Acute Interval History He is more alert today, mouthing some words. Urine output is increasing although creatinine is higher. Family at bedside. Worsening anemia given one unit PRBC today. (Larissa Amin) Review of Systems General General Remarks unable to obtain (Larissa Amin) Objective Data Data 01/21/18 01/22/18 19:00 07:00 Intake Total 500 ml Balance 500 ml Packed Cells 400 ml Blood Product IV Normal Saline Flush 100 ml Vital Signs Date Time Temp Pulse Resp B/P (MAP) Pulse Ox O2 Delivery O2 Flow Rate FiO2 01/21/18 10:00 102 01/21/18 09:33 98.5 110 24 158/73 97 01/21/18 08:42 98.4 108 22 143/76 98 01/21/18 08:14 95 T-piece 5.00 28 01/21/18 08:00 108 01/21/18 06:00 114 01/21/18 04:00 98 01/21/18 04:00 97.3 98 21 141/77 (98) 93 01/21/18 02:00 92 01/21/18 00:00 110 01/21/18 00:00 97.3 110 21 155/82 (106) 93 01/20/18 22:00 116 01/20/18 20:00 99 01/20/18 20:00 99.0 99 15 129/79 (96) 96 01/20/18 19:42 100 T-piece 28 01/20/18 18:00 102 01/20/18 16:00 109 01/20/18 16:00 98.0 109 21 136/78 (97) 99 (Larissa Amin) -: 01/21/18 1340 01/21/18 0500 Imaging Last 72 hours Impressions Chest X-Ray 01/19/18 0600 Signed Impressions: Service Date/Time: Friday, January 19, 2018 04:08 - CONCLUSION: Increased bilateral pulmonary opacity likely representing pulmonary edema and pleural effusions. Gonzalo Cooper MD Tubes & Lines: Vas-Cath, Hay Tubes & Lines Comment [facility] VC, trach (Larissa Amin) Physical Exam General Appearance Remarks elderly, cachectic, awake; he is not on the vent trach collar in place mouth open, more alert (Larissa Amin) Eyes Eye Exam: Pupils Equal, Pupils Reactive (Larissa Amin) Neck Neck Exam: Neck Supple Neck Remarks new trach (placed 01/16), not bleeding (Larissa Amin) Pulmonary Resp Exam: Breath Sounds Equal, Decreased Bases Resp Remarks vented, on 40% FiO2. (Larissa Amin) Cardiology CV Exam: Regular, Normal Sinus Rhythm, Good Perfusion (Larissa Amin) Gastrointestinal/Abdomen GI Exam: Soft, Non-Tender, Bowel Sounds Present, Distended (Larissa Amin) Musculoskeletal MS Exam: Normal Tone, Unable to Ambulate (Larissa Amin) Integumentary Skin Exam: Warm, Dry (Larissa Amin) Extremeties Extremities Exam: Pedal Pulses Palpable, Moderate Edema, Pitting Edema, Dependent Edema (Larissa Amin) Neurologic Neuro Exam: Alert, Awake Neuro Remarks non verbal but awake (Larissa Amin) VTE Prophylaxis Device: SCDs (Larissa Amin) Assessment/Plan Discussed Condition With: Spouse Assessment Summary: CYNDI/Acute Renal Failure, Fluid/Volume Overload, Hypotension Electrolyte Assessment: Hypernatremia, Metabolic Acidosis Problem List: (1) Acute renal failure ICD Codes: N17.9 - Acute kidney failure, unspecified Status: Acute Plan: Normal renal function at baseline Renal failure onset 01/02, ATN most likely due to sepsis and hypotension. Vascath placed and HD initiated 01/16 Renal function is higher despite dialysis Dialysis today and MWF as needed , minimal (1L fluid removal today) Urine output may be increasing, monitor I/O Start Lasix 40 mg IV daily beginning tomorrow. Await renal recovery. Prognosis is guarded to poor. 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 (4) Hypernatremia ICD Codes: E87.0 - Hyperosmolality and hypernatremia Plan: Improved Continue free water with tube feeding Follow labs (Larissa Amin) Plan patient was seen and examined on 01/21/18. Later I was informed that Vascath was not working well, IR consulted for a new Vascath. Urine output has improved. Start diuretic. Dialysis as needed. Avoid nephrotoxins. (Tan Christensen MD) Larissa Amin Jan 21, 2018 14:37 Tan Christensen MD Jan 22, 2018 10:27
--- NOTE | 2018-01-21 14:57 | PD.ONC.PN ---
Subjective Subjective Remarks Afebrile overnight. Patient awake and interactive. trach in place so he is non-verbal, but he does follow commands. overnight he had some bloody residual from his GJ tube. continuing on dialysis. Objective Data Date Time Temp Pulse Resp B/P (MAP) Pulse Ox O2 Delivery O2 Flow Rate FiO2 01/21/18 10:00 102 01/21/18 09:33 98.5 110 24 158/73 97 01/21/18 08:42 98.4 108 22 143/76 98 01/21/18 08:14 95 T-piece 5.00 28 01/21/18 08:00 108 01/21/18 06:00 114 01/21/18 04:00 98 01/21/18 04:00 97.3 98 21 141/77 (98) 93 01/21/18 02:00 92 01/21/18 00:00 110 01/21/18 00:00 97.3 110 21 155/82 (106) 93 01/20/18 22:00 116 01/20/18 20:00 99 01/20/18 20:00 99.0 99 15 129/79 (96) 96 01/20/18 19:42 100 T-piece 28 01/20/18 18:00 102 01/20/18 16:00 109 01/20/18 16:00 98.0 109 21 136/78 (97) 99 01/21/18 01/21/18 01/21/18 07:00 15:00 23:00 Intake Total 133 ml 500 ml Output Total 275 ml Balance -142 ml 500 ml Result Diagram: 01/21/18 1340 01/21/18 0500 Laboratory Results Laboratory Tests Test 01/21/18 05:00 01/21/18 13:40 White Blood Count 13.5 TH/MM3 Red Blood Count 2.34 MIL/MM3 Hemoglobin 6.7 GM/DL 8.2 GM/DL Hematocrit 20.3 % 24.2 % Mean Corpuscular Volume 86.8 FL Mean Corpuscular Hemoglobin 28.5 PG Mean Corpuscular Hemoglobin Concent 32.8 % Red Cell Distribution Width 18.7 % Platelet Count 274 TH/MM3 Mean Platelet Volume 9.4 FL Blood Urea Nitrogen 113 MG/DL Creatinine 4.94 MG/DL Random Glucose 98 MG/DL Calcium Level 8.4 MG/DL Sodium Level 142 MEQ/L Potassium Level 4.5 MEQ/L Chloride Level 104 MEQ/L Carbon Dioxide Level 23.8 MEQ/L Anion Gap 14 MEQ/L Estimat Glomerular Filtration Rate 12 ML/MIN Administered Medications Medications (Trade) Dose Ordered Sig/Candace Route PRN Reason Start Time Stop Time Status Last Admin Dose Admin Sodium Chloride (NS Flush) 2 ml BID IV FLUSH 12/22/17 21:00 01/21/18 09:00 Ondansetron HCl (Zofran Inj) 4 mg Q6H PRN IVP NAUSEA OR VOMITING 12/22/17 18:15 01/01/18 10:02 Zolpidem Tartrate (Ambien) 5 mg HS PRN PO INSOMNIA 12/22/17 20:15 01/15/18 20:30 Megestrol Acetate (Megace Liq) 800 mg DAILY PO 12/23/17 09:00 01/21/18 10:17 Budesonide/ Formoterol Fumarate (Symbicort 160-4.5 Mcg Inh) 1 puff Q12HR INH 12/22/17 21:00 01/18/18 09:00 Atorvastatin Calcium (Lipitor) 80 mg DAILY PO 12/23/17 09:00 Future Hold 01/08/18 08:32 Multivitamins (Theragran) 1 tab DAILY PO 12/23/17 09:00 01/21/18 10:17 Heparin Sodium (Porcine) (Heparin Central Flush) 250 units UNSCH PRN IV FLUSH SEE PROTOCOL 12/22/17 20:30 12/27/17 20:27 Guaifenesin/ Dextromethorphan (Robitussin Dm 200-20 Mg/10 ml Liq) 10 ml Q4H PRN PO cough interfering with rest 12/22/17 21:00 12/26/17 18:27 Calcium Carbonate (Tums Chew) 500 mg Q12HR PRN CHEW indigestion 12/31/17 16:15 01/01/18 05:27 Prednisone (Deltasone) 10 mg BID PO 01/01/18 21:00 01/21/18 10:16 Insulin Aspart (NovoLOG SUPPLEMENTAL SCALE) 1 Q6HR SQ 01/07/18 18:00 01/19/18 00:00 Docusate Sodium (Colace Liq) 100 mg Q12HR OG-TUBE 01/07/18 21:00 01/21/18 10:17 Acetaminophen (Tylenol 650 Mg/ 20 ml Liq) 650 mg Q6H PRN G-TUBE fever 01/09/18 10:00 01/18/18 06:49 Lansoprazole (Prevacid Odt) 30 mg BID G-TUBE 01/09/18 21:00 01/21/18 10:17 Artificial Tears (Tears Naturale Opth Soln) 1 drop Q8HR EACH EYE 01/09/18 14:00 01/21/18 13:23 Aspirin (Aspirin Chew) 81 mg DAILY CHEW 01/10/18 11:00 Future Hold 01/19/18 09:25 Dexmedetomidine HCl 1000 mcg/ Sodium Chloride 250 ml @ 4.76 mls/hr TITRATE PRN IV SEDATION 01/10/18 13:45 01/15/18 20:29 Sodium Chloride 1,000 ml @ 0 mls/hr Q0M PRN OTHER For Prime & Rinse Back 01/11/18 11:53 01/19/18 19:27 Mannitol (Mannitol Inj) 12.5 gm UNSCH PRN IV WITH DIALYSIS 01/11/18 12:00 01/16/18 15:50 Albumin Human 100 ml @ 60 mls/hr UNSCH PRN IV WITH DIALYSIS 01/11/18 12:00 01/19/18 19:26 Sodium Chloride (NS Flush) 5 ml UNSCH PRN IV FLUSH WITH DIALYSIS 01/11/18 12:00 01/19/18 19:28 Heparin Sodium (Porcine) (Heparin Inj) UNSCH PRN .XX WITH DIALYSIS 01/11/18 12:00 01/19/18 19:28 Gentamicin Sulfate (Gentamicin Inj) 20 mg UNSCH PRN OTHER WITH DIALYSIS 01/11/18 12:00 01/19/18 19:29 Chlorhexidine Gluconate (Peridex 0.12% Liq) 15 ml BID@08,20 MT 01/13/18 08:00 01/21/18 10:16 Fentanyl Citrate (fentaNYL INJ) 25 mcg Q1HR PRN IV PUSH Breakthrough pain 01/14/18 17:00 01/17/18 13:28 Norepinephrine Bitartrate 4 mg/ Sodium Chloride 250 ml @ 7.5 mls/hr TITRATE PRN IV Blood pressure management 01/14/18 18:45 01/16/18 01:06 Metoclopramide HCl (Reglan Inj) 5 mg Q8HR IV PUSH 01/15/18 15:00 01/21/18 13:24 Sennosides (Senna Liq) 8.8 mg BID J-TUBE 01/15/18 21:00 01/21/18 10:17 Propofol 100 ml @ 2.922 mls/ hr TITRATE PRN IV Sedation 01/15/18 23:45 01/17/18 05:42 Olanzapine (ZyPREXA) 10 mg Q8H PO 01/16/18 10:00 01/21/18 10:17 Midodrine (Proamatine) 10 mg Q8H PO 01/16/18 09:00 01/19/18 17:19 Oxycodone HCl (Roxicodone Intensol Liq) 10 mg Q4H PO 01/17/18 08:00 01/17/18 21:22 Heparin Sodium (Porcine) (Heparin Inj) 5,000 units Q12HR SQ 01/17/18 21:00 Future Hold 01/19/18 09:25 Water (Free Water) VOLUME OF WATER: ( 200 ) ML TID G-TUBE 01/17/18 13:00 01/21/18 13:00 Albuterol/ Ipratropium (Duoneb Neb) 1 ampule TID NEB INH 01/19/18 14:00 01/21/18 14:24 Sodium Chloride 250 ml @ 15 mls/hr ONCE ONCE IV 01/21/18 06:00 01/21/18 22:39 01/21/18 06:00 Objective Remarks GENERAL: Elderly male sitting up in bed, appears weak and debilitated. SKIN: Warm and dry. HEAD: Normocephalic. EYES: No injection or drainage. NECK: Supple, trachea midline. CARDIOVASCULAR: +S1/S2 RESPIRATORY: anterior clark with scattered rhonchi. GASTROINTESTINAL: Abdomen soft, non-tender, nondistended. GJ tube in place, receiving TF at 10cc/hr EXTREMITIES: No cyanosis NEUROLOGICAL: awake and alert. following commands. 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 off sedation. now with trach. continuing dialysis. discussed with waiting for performance status to improve before giving further chemotherapy 01/16/18: family has decided to proceed with dialysis today. monitor renal function. no transfusion today. 01/15/18: hgb 8.6. monitor CBC. no transfusion today. 01/14/18: Pt remains intubated. Transfuse 1 unit PRBC's for increased O2 demands, hemoglobin of 7.5. Monitor CBC in am. 01/13/18: await labs today. prognosis poor with worsening renal function, continue reliance on mechanical ventilation. 01/12: renal function continuing to worsen. considering hemodialysis per nephrology recommendations. next chemotherapy would be next week if patient improved 01/11: WBC remains recovered, renal function continuing to decline. patient remains intubated. plan from oncology standpoint is to give a second round of chemotherapy if he clinically improves. 01/10: patient remains critically ill, intubated and is currently minimally responsive off sedation. will hold chemotherapy until clinically improved. 01/09: Next cycle of CHOP chemo is due next week; we will likely hold this until he is more stable. Continue to monitor CBC. 01/08: monitor CBC, WBC is recovered. 01/07: Continue neupogen x 1 more day. Monitor CBC. Transfuse 1 unit packed red blood cells if hemoglobin trending down tomorrow. CXR shows worsening disease. Abx per ID, Vent mgmt by bench press operator. 01/06: Patient no longer neutropenic. Continue Neupogen today. Monitor CBC. 01/05: Noted white blood cells minimally improved. Continue Neupogen for now. Await results from CT brain. Supportive care. 01/04: remains on vent. Off pf pressors. Pancytopenia with Neutropenia. Continue neupogen. Vent management per Network Technical Analyst. Extensive d/w and DIL ( E D TECH) . answered their questions. Continue maximal support. 01/03: Continue Neupogen. Transfuse 1 unit packed red blood cells today for hemoglobin of 7.5. Monitor CBC. 01/02: patient remains intubated, sedated. start Neupogen for neutropenia + infection 01/01: patient in respiratory failure. intubated and transferring to intensive care. 12/31: C. difficile negative. Bone marrow biopsy shows no lymphoma involvement. Cytology from thoracentesis pending. Transfuse 1 unit PRBC for symptomatic with hgb 7.7. Patient would benefit from inpatient rehab for strengthening 12/28: continue solu-medrol. await thoracentesis. consult OT. 12/27: start Solu-medrol 40mg IV q 6. consult pulmonology for worsening infiltrates, pleural effusions. monitor CBC, counts dropping. 12/26: CT chest shows Bilateral Pl effusion. Continue aggressive diuresis. Had CHOP C1D1 yesterday. Tolerated well. Next chemo in 3 weeks as outpt. Continue allopurinol and prednisone. 12/25: CTA shows no PE. +LAD, PE. dyspnea likely d/t lymphoma. will give Solu- medrol 1g IV and start CHOP today. Anaplastic large cell, non-Hodgkin's lymphoma, at least stage III. --unclear whether he has any B symptoms, but this could be most likely given that he has significant weight loss, which is one of the symptoms of lymphoma. --Leukocytosis, anemia and neutrophilia, most likely due to bone marrow involvement by the lymphoma until proven otherwise. (2) Renal insufficiency ICD Codes: N28.9 - Disorder of kidney and ureter, unspecified Plan: --Nephrology following. --receiving dialysis Assessment 72y/o male with newly diagnosed anaplastic large cell NHL. h/o COPD, hypercholesterolemia, hypertension, history of previous stroke. HPI: started 8 weeks ago with a cough mixed with greenish phlegm and shortness of breath. CT cap showed diffuse lymphadenopathy on both sides of the diaphragm. PET scan showed increased uptake in the lymph nodes involving the neck, chest, mediastinal and hilar area, retroperitoneum and pelvic lymph nodes. biopsy of the left neck mass=anaplastic large cell NHL echocardiogram, LVEF=55-70%. MUGA scan, showed EF of 60%. Attending Statement The exam, history, and the medical decision-making described in the above note were completed with the assistance of the mid-level provider. I reviewed and agree with the findings presented. I attest that I had a [id number] encounter with the patient on the same day, and personally performed and documented my assessment and findings in the medical record. Just finish dialysis. Became lethargic after the procedure. Trach, on vent Next chemo when PFS improves. just left per Susy Mae Jan 21, 2018 14:57 Josy Suarez MD Jan 21, 2018 19:03
--- NOTE | 2018-01-21 20:42 | HHI.PR ---
Subjective Remarks Follow up for respiratory failure, lymphoma and acute renal failure. Patient is undergoing bedside hemodialysis. Appears more lethargic compared to yesterday. No fever, chills. Tolerating slow tube feed. Objective Vitals Vital Signs Date Time Temp Pulse Resp B/P (MAP) Pulse Ox O2 Delivery O2 Flow Rate FiO2 01/21/18 19:34 96 T-piece 28 01/21/18 18:00 84 01/21/18 16:00 120 01/21/18 16:00 98.3 120 19 148/72 (97) 95 01/21/18 14:00 88 01/21/18 12:00 114 01/21/18 12:00 98.3 114 26 157/88 (111) 94 01/21/18 10:00 102 01/21/18 09:33 98.5 110 24 158/73 97 01/21/18 08:42 98.4 108 22 143/76 98 01/21/18 08:14 95 T-piece 5.00 28 01/21/18 08:00 98.0 114 23 143/82 (102) 97 01/21/18 08:00 108 01/21/18 06:00 114 01/21/18 04:00 98 01/21/18 04:00 97.3 98 21 141/77 (98) 93 01/21/18 02:00 92 01/21/18 00:00 110 01/21/18 00:00 97.3 110 21 155/82 (106) 93 01/20/18 22:00 116 I/O 01/20/18 01/20/18 01/20/18 01/21/18 01/21/18 01/21/18 07:00 15:00 23:00 07:00 15:00 23:00 Intake Total 60 ml 660 ml 133 ml 500 ml 850 ml Output Total 450 ml 675 ml 275 ml 1000 ml Balance -390 ml -15 ml -142 ml 500 ml -150 ml Intake Oral 0 ml 0 ml Tube Feeding 0 ml 60 ml 133 ml 250 ml Packed Cells 400 ml Blood Product IV Normal Saline Flush 100 ml Other 60 ml 600 ml 600 ml Output Urine Total 50 ml 175 ml 175 ml 300 ml Stool Total 200 ml 100 ml 100 ml 200 ml Gastric Drainage Total 200 ml 400 ml Hemodialysis 500 ml Result Diagram: 01/21/18 1340 01/21/18 0500 Objective Remarks GENERAL: Alert, NAD. SKIN: Warm and dry. HEAD: Normocephalic. EYES: No scleral icterus. No injection or drainage. NECK: On T-Piece, No JVD or lymphadenopathy. CARDIOVASCULAR: Regular rate and rhythm without murmurs, gallops, or rubs. RESPIRATORY: Breath sounds equal bilaterally. No accessory muscle use. GASTROINTESTINAL: Abdomen soft, non-tender, nondistended. MUSCULOSKELETAL: No cyanosis 3+ lower ext edema. BACK: Nontender without obvious deformity. No CVA tenderness. Procedures 01/16/2018 Percutaneous tracheostomy placement. 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 prognosis at this point is poor. I do not think he will survive this illness. Family continues to press for aggressive measures and FULL CODE status. now s/p trach and vascath. Now that he is on dialysis, his acute medical problems are controlled- he certainly will need weaning from mechanical ventilation and strengthening before his lymphoma can be managed. will begin seeking placement for him. 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 hold on MRI. likely uremic encephalopathy Continue zyprexa 10mg po q8h to help with agitation. CV: Hypertension Dyslipidemia 2D echocardiogram revealed EF 65-70%. Tricuspid regurgitation. PA P 38 mmHg Currently normotensive. Resp: Acute hypoxic hypercapnic respiratory failure secondary to aspiration pneumonia Right middle lobe pulmonary nodule 8 mm recommend 6 month follow-up CT chest COPD Patient written for budesonide/formoterol 160/4.5 2 puffs twice daily. Albuterol/ipratropium aerosols every 6 hours with albuterol aerosols every 2 hours as needed dyspnea On prednisone [address] Blevins/pulmonology is following s/p trach 01/[address] Graf GI: Status post GJ conversion by IR 01/08 Hypoalbuminemia Acute protein calorie malnutrition - severe. Lansoprazole 30 mg twice daily for GI prophylaxis Docusate sodium liquid 100 mg twice daily for bowel regimen On Megestrol 800 mg daily for anorexia Nutrition recommends vital 1.5 goal 60 cc an hour. G-tube drainage is slowing down. If it does not drain much, we will re-start tube feed 01/20/2018. prealbumin 25 on 01/16. : Hay catheter for accurate I's and O's in a critically ill patient: keep. needing accurate i/o's in acute oliguric renal failure. Endo: Sliding scale insulin to maintain euglycemia/low regimen every 6 hours TSH is 1.18 Renal: Acute kidney injury likely secondary to sepsis/ATN Right-sided nephrolithiasis Urine eosinophils negative. Renal ultrasound reveals medical renal disease and prior CT abdomen/pelvis revealed non-obstructing right renal stones. Followed by nephrology Avoid nephrotoxic medication Currently in free water 300 cc every 6 and chlorothiazide 500 mg IV 1. Nephrology to guide renal therapies. 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 Followed by hematology. currently not stable enough for chemotherapy. would be a candidate if he ever stabilized, but I do not see this as a functional reality. unlikely to tolerate future chemotherapies. No indication for transfusion of blood products at this time ID: ID recommended discontinuation of all abx on 01/15/2018. Patient has been afebrile so far. FEN: Hypernatremia Continue Tube feed. Gradually increase to at least 50cc/ hour. Replace electrolytes as clinically indicated MSK: Sacral decubitus ulcer Wound care management Prophylaxis -GI -lansoprazole -DVT -SCD/heparin subcu Madhu Ibarra DO Jan 21, 2018 20:42
[2018-01-22] VITALS (12 sets, daily range): BP systolic 116–169; BP diastolic 64–77; PULSE 54–118; RESP 17–19; TEMP 97.4–98.8; O2SAT 92–98
[2018-01-22] MEDS: MIDODRINE 5 MG TAB PO SCH ×3 (01:38→17:54)
[2018-01-22] MEDS: OLANZapine 10 MG TAB PO SCH ×2 (01:39→10:32)
[2018-01-22] MEDS: oxyCODONE HCL ORAL CONC 5 MG/0.25 ML SYRINGE PO SCH ×3 (04:15→12:31)
[2018-01-22] MEDS: METOCLOPRAMIDE HCL 10 MG/2 ML VIAL IV PUSH SCH ×3 (05:55→21:10)
[2018-01-22] MEDS: ARTIFICIAL TEARS OPTH SOLN 15 ML BTL EACH EYE SCH ×3 (05:55→21:10)
[2018-01-22] MEDS: INSULIN ASPART SUPPLEMENTAL SCALE SQ SCH ×3 (06:00→18:00)
[2018-01-22 06:36] LABS: HEMATOCRIT 23.9 % (39.0-51.0); MEAN CELL VOLUME 85.8 FL (80.0-100.0); MEAN CORPUSCULAR HEMOGLOBIN 28.7 PG (27.0-34.0); MEAN CORPUSCULAR HGB CONC 33.4 % (32.0-36.0); MEAN PLATELET VOLUME 9.3 FL (7.0-11.0); PLATELET COUNT 277 TH/MM3 (150-450); RED BLOOD COUNT 2.79 MIL/MM3 (4.50-5.90); RED CELL DISTRIBUTION WIDTH 17.8 % (11.6-17.2); WHITE BLOOD COUNT 16.4 TH/MM3 (4.0-11.0)
[2018-01-22 06:58] LABS: BICARBONATE 25.9 MEQ/L (21.0-32.0); CALCIUM 8.3 MG/DL (8.5-10.1); CREATININE 4.61 MG/DL (0.60-1.30)
[2018-01-22] MEDS: CHLORHEXIDINE 0.12% (ORAL KIT) 15 ML CUP MT SCH ×2 (08:00→20:00)
[2018-01-22] MEDS: RESP: ALBUTEROL 2.5 MG/IPRATROPIUM 0.5 MG NEB (SCH) INH ×3 (08:03→19:37)
[2018-01-22] MEDS: SENNOSIDES SYRUP 8.8 MG/5 ML CUP J-TUBE SCH (08:20)
[2018-01-22] MEDS: predniSONE 10 MG TAB PO SCH ×2 (08:21→21:10)
[2018-01-22] MEDS: MEGESTROL ACETATE SUSP 400 MG/10 ML CUP PO SCH (08:21)
[2018-01-22] MEDS: MULTIVITAMIN TAB PO SCH (08:21)
[2018-01-22] MEDS: LANSOPRAZOLE SOLUTAB 30 MG TAB G-TUBE SCH ×2 (08:22→21:09)
[2018-01-22] MEDS ORDERED: FUROSEMIDE 40 MG/4 ML VIAL IV PUSH SCH (09:00)
--- NOTE | 2018-01-22 09:40 | PD.RAD ---
Post Procedure Progress Note Pre Procedure Diagnosis: (1) Renal insufficiency Post Procedure Diagnosis: (1) Renal insufficiency Procedure Date: Jan 22, 2018 Supervising Radiologist: Jesús Crouch Proceduralist/Assist: Ivett Chauhan, RT(R)(CV), Devon Valencia RT(R) Anesthesia: Local Plan of Activity Patient to Unit: Critical Care Patient Condition: Poor See PACS Report for procedural detail/treatment Central Venous Access Device Procedure 1 Left Subclavian Hemodialysis Catheter Non-Tunneled Exchange dual lumen Jesús Crouch MD Jan 22, 2018 09:40
[2018-01-22] MEDS ORDERED: HEPARIN SODIUM - IV 2,000 UNITS/2 ML VIAL IV FLUSH PRN (09:45)
[2018-01-22] MEDS ORDERED: SODIUM CHLORIDE 0.9% FLUSH 10 ML FLUSH IV FLUSH PRN (09:45)
--- NOTE | 2018-01-22 10:05 | RADRPT ---
EXAM DATE/TIME: 01/22/2018 09:05 INDICATIONS : Patient with acute renal presents with non functioning temporary central venous catheter in need of r eplacement. MEDICAL HISTORY : NSVT while at [facility] CVA without residual deficits Hyperlipidemia HTN COPD Bilateral lower extremity neuropathy Anaplastic ALK-Negative large cell lymphoma SURGICAL HISTORY : Port-a-cath placement Back surgery ENCOUNTER: Initial ACUITY: 1 month PAIN SCORE: Nonresponsive. LOCATION: N/A FLUORO TIME: 0.7 minutes IMAGE SERIES: 2 ACCESS: Left subclavian vein DEVICE(S): 1.) 14 [place] dual lumen 24 cm Schon catheter PROCEDURE: CENTRAL VENOUS CATHETER REPLACEMENT, LT 1. Fluoroscopically guided central venous catheter exchange. The risks, benefits and alternatives to the procedure were explained and verbal and written consent w as obtained. The site was prepped in sterile fashion. Full sterile technique was used, including ca p, mask, sterile gloves and gown and a large sterile sheet. Hand hygiene and 2% chlorhexidine and/or betadine/alcohol prep was utilized per protocol for cutaneous antisepsis. The skin and subcutaneous tissues were infiltrated with local anesthetic solution. With fluoroscopic guidance the previously placed central venous catheter was exchanged for the prescr ibed catheter as above. Post procedure image demonstrates satisfactory position of the tube. The cath eter was sutured in place. CONCLUSION: Uncomplicated venous catheter change as above. Jesús Crouch MD on January 22, 2018 at 10:02 Board Certified Radiologist. This report was verified electronically.
[2018-01-22] MEDS: FREE WATER G-TUBE SCH ×3 (10:29→18:00)
[2018-01-22] MEDS: SODIUM CHLORIDE 0.9% FLUSH 10 ML FLUSH IV FLUSH SCH (10:30)
[2018-01-22] MEDS: DOCUSATE SODIUM 100 MG/10 ML UDC OG-TUBE SCH ×2 (10:30→21:09)
[2018-01-22] MEDS: BUDESONIDE-FORMOTEROL 160/4.5 MCG INHALER INH SCH ×2 (10:30→20:38)
--- NOTE | 2018-01-22 10:35 | HHI.NPPN ---
Subjective Renal Failure: Acute Interval History He had dialysis yesterday but vascath was not functioning. He was started on Lasix today. Urine output is improving. (Larissa Amin) Review of Systems General General Remarks unable to obtain (Larissa Amin) Objective Data Data Vital Signs Date Time Temp Pulse Resp B/P (MAP) Pulse Ox O2 Delivery O2 Flow Rate FiO2 01/22/18 08:09 96 T-piece 5.00 28 01/22/18 05:45 16 01/22/18 04:00 97.8 98 18 134/70 (91) 96 01/22/18 00:00 98.2 96 19 142/74 (96) 93 01/21/18 22:00 96 01/21/18 20:00 96 01/21/18 20:00 98.2 96 17 136/70 (92) 95 01/21/18 19:34 96 T-piece 28 01/21/18 18:00 84 01/21/18 16:00 120 01/21/18 16:00 98.3 120 19 148/72 (97) 95 01/21/18 14:00 88 01/21/18 12:00 114 01/21/18 12:00 98.3 114 26 157/88 (111) 94 (Larissa Amin) -: 01/22/18 0530 01/22/18 0530 Imaging Last 72 hours Impressions Catheter Placement X-Ray 01/22/18 0000 Signed Impressions: Service Date/Time: Monday, January 22, 2018 09:05 - CONCLUSION: Uncomplicated venous catheter change as above. Jesús Crouch MD Tubes & Lines: Vas-Cath, Hay Tubes & Lines Comment CARLITOS VC, trach (Larissa Amin) Physical Exam General Appearance Remarks elderly, cachectic, awake; he is not on the vent trach collar in place mouth open (Larissa Amin) Eyes Eye Exam: Pupils Equal, Pupils Reactive (Larissa Amin) Neck Neck Exam: Neck Supple Neck Remarks new trach (placed 01/16), not bleeding (Larissa Amin) Pulmonary Resp Exam: Breath Sounds Equal, Decreased Bases Resp Remarks vented, on 40% FiO2. (Larissa Amin) Cardiology CV Exam: Regular, Normal Sinus Rhythm, Good Perfusion (Larissa Amin) Gastrointestinal/Abdomen GI Exam: Soft, Non-Tender, Bowel Sounds Present, Distended (Larissa Amin) Musculoskeletal MS Exam: Normal Tone, Unable to Ambulate (Larissa Amin) Integumentary Skin Exam: Warm, Dry (Larissa Amin) Extremeties Extremities Exam: Pedal Pulses Palpable, Moderate Edema, Pitting Edema, Dependent Edema (Larissa Amin) Neurologic Neuro Exam: Alert, Awake Neuro Remarks non verbal but awake (Larissa Amin) VTE Prophylaxis Device: SCDs (Larissa Amin) Assessment/Plan Discussed Condition With: Spouse Assessment Summary: CYNDI/Acute Renal Failure, Fluid/Volume Overload, Hypotension Electrolyte Assessment: Metabolic Acidosis Problem List: (1) Acute renal failure ICD Codes: N17.9 - Acute kidney failure, unspecified Status: Acute Plan: Normal renal function at baseline Renal failure onset 01/02, ATN most likely due to sepsis and hypotension. First HD 01/16. s/p Vascath replacement in IR today. Had poor blood flow with HD yesterday. 500 ml UF. His urine output may be improving. Lasix IV started today, increase 40 BID, IV. Await renal recovery. Prognosis is guarded to poor. Obtain daily labs. Needs dialysis today with fluid removal. 3-4 L UF. HD TTS and PRN. Patient status post tracheostomy He is on midodrine for BP support. 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 Family has discussed in depth with ID, they want to monitor him off antibiotics thinking that may be affecting his kidneys and increase risk of nosocomial infections. (4) Hypernatremia ICD Codes: E87.0 - Hyperosmolality and hypernatremia Plan: Improved Continue free water with tube feeding Follow labs (Larissa Amin) Plan patient was seen and examined. Agree with above assessment and plan. Dialysis again today after Vascath exchange. Increase Lasix. Discussed with patient's . Patient appeared more confused. Agree with above assessment and plan. (Tan Christensen MD) Larissa Amin Jan 22, 2018 10:35 Tan Christensen MD Jan 22, 2018 15:15
--- NOTE | 2018-01-22 11:54 | HHI.PR ---
Subjective Remarks Follow up for respiratory failure, lymphoma and acute renal failure. Patient is resting bed, largely unresponsive, mouth open. Tolerating tube feed well. Objective Vitals Vital Signs Date Time Temp Pulse Resp B/P (MAP) Pulse Ox O2 Delivery O2 Flow Rate FiO2 01/22/18 08:09 96 T-piece 5.00 28 01/22/18 05:45 16 01/22/18 04:00 97.8 98 18 134/70 (91) 96 01/22/18 00:00 98.2 96 19 142/74 (96) 93 01/21/18 22:00 96 01/21/18 20:00 96 01/21/18 20:00 98.2 96 17 136/70 (92) 95 01/21/18 19:34 96 T-piece 28 01/21/18 18:00 84 01/21/18 16:00 120 01/21/18 16:00 98.3 120 19 148/72 (97) 95 01/21/18 14:00 88 01/21/18 12:00 114 01/21/18 12:00 98.3 114 26 157/88 (111) 94 I/O 01/21/18 01/21/18 01/21/18 01/22/18 01/22/18 01/22/18 07:00 15:00 23:00 07:00 15:00 23:00 Intake Total 133 ml 500 ml 850 ml 310 ml Output Total 275 ml 1000 ml 150 ml Balance -142 ml 500 ml -150 ml 160 ml Tube Feeding 133 ml 250 ml 260 ml Packed Cells 400 ml Blood Product IV Normal Saline Flush 100 ml Other 600 ml 50 ml Output Urine Total 175 ml 300 ml 150 ml Stool Total 100 ml 200 ml Hemodialysis 500 ml Result Diagram: 01/22/1830 01/22/18 0530 Objective Remarks GENERAL: Alert, NAD. SKIN: Warm and dry. HEAD: Normocephalic. EYES: No scleral icterus. No injection or drainage. NECK: On T-Piece, No JVD or lymphadenopathy. CARDIOVASCULAR: Regular rate and rhythm without murmurs, gallops, or rubs. RESPIRATORY: Breath sounds equal bilaterally. No accessory muscle use. GASTROINTESTINAL: Abdomen soft, non-tender, nondistended. MUSCULOSKELETAL: No cyanosis 3+ lower ext edema. BACK: Nontender without obvious deformity. No CVA tenderness. Procedures 01/16/2018 Percutaneous tracheostomy placement. 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 prognosis at this point is poor. I do not think he will survive this illness. Family continues to press for aggressive measures and FULL CODE status. now s/p trach and vascath. Now that he is on dialysis, his acute medical problems are controlled- he certainly will need weaning from mechanical ventilation and strengthening before his lymphoma can be managed. will begin seeking placement for him. 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 hold on MRI. 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 Patient's wants to reduce any sedatives. IF patient becomes more agitated, we can try low dose seroquel. CV: Hypertension Dyslipidemia 2D echocardiogram revealed EF 65-70%. Tricuspid regurgitation. PA P 38 mmHg Currently normotensive. Resp: Acute hypoxic hypercapnic respiratory failure secondary to aspiration pneumonia Right middle lobe pulmonary nodule 8 mm recommend 6 month follow-up CT chest COPD Patient written for budesonide/formoterol 160/4.5 2 puffs twice daily. Albuterol/ipratropium aerosols every 6 hours with albuterol aerosols every 2 hours as needed dyspnea On prednisone [address] Blevins/pulmonology is following s/p trach 01/[address] Graf GI: Status post GJ conversion by IR 01/08 Hypoalbuminemia Acute protein calorie malnutrition - severe. Lansoprazole 30 mg twice daily for GI prophylaxis Docusate sodium liquid 100 mg twice daily for bowel regimen On Megestrol 800 mg daily for anorexia Nutrition recommends vital 1.5 goal 60 cc an hour. Continue tube feed - currently at 30cc/hour. prealbumin 25 on 01/16. : Hay catheter for accurate I's and O's in a critically ill patient: keep. needing accurate i/o's in acute oliguric renal failure. Endo: Sliding scale insulin to maintain euglycemia/low regimen every 6 hours TSH is 1.18 Renal: Acute kidney injury likely secondary to sepsis/ATN Right-sided nephrolithiasis Urine eosinophils negative. Renal ultrasound reveals medical renal disease and prior CT abdomen/pelvis revealed non-obstructing right renal stones. Followed by nephrology Avoid nephrotoxic medication Currently in free water 300 cc every 6 and chlorothiazide 500 mg IV 1. Nephrology to guide renal therapies. 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 Followed by hematology. currently not stable enough for chemotherapy. would be a candidate if he ever stabilized, but I do not see this as a functional reality. unlikely to tolerate future chemotherapies. No indication for transfusion of blood products at this time ID: ID recommended discontinuation of all abx on 01/15/2018. Patient has been afebrile so far. FEN: Hypernatremia Continue Tube feed. Gradually increase to at least 50cc/ hour. Replace electrolytes as clinically indicated MSK: Sacral decubitus ulcer Wound care management Prophylaxis -GI -lansoprazole -DVT -SCD/heparin subcu Madhu Ibarra DO Jan 22, 2018 11:54
--- NOTE | 2018-01-22 13:03 | HHI.PR ---
Subjective Remarks .He is sleepy and on a T Bar 30 %. Still weak and responds to commands.Had a Vascath done today. Objective Vital Signs Date Time Temp Pulse Resp B/P (MAP) Pulse Ox O2 Delivery O2 Flow Rate FiO2 01/22/18 12:00 98.8 103 17 130/73 (92) 94 01/22/18 12:00 103 01/22/18 10:00 64 01/22/18 08:09 96 T-piece 5.00 28 01/22/18 08:00 54 01/22/18 08:00 98.4 54 18 169/77 (107) 98 01/22/18 05:45 16 01/22/18 04:00 97.8 98 18 134/70 (91) 96 01/22/18 00:00 98.2 96 19 142/74 (96) 93 01/21/18 22:00 96 01/21/18 20:00 96 01/21/18 20:00 98.2 96 17 136/70 (92) 95 01/21/18 19:34 96 T-piece 28 01/21/18 18:00 84 01/21/18 16:00 120 01/21/18 16:00 98.3 120 19 148/72 (97) 95 01/21/18 14:00 88 I/O 01/21/18 01/21/18 01/21/18 01/22/18 01/22/18 01/22/18 07:00 15:00 23:00 07:00 15:00 23:00 Intake Total 133 ml 500 ml 850 ml 310 ml Output Total 275 ml 1000 ml 150 ml Balance -142 ml 500 ml -150 ml 160 ml Tube Feeding 133 ml 250 ml 260 ml Packed Cells 400 ml Blood Product IV Normal Saline Flush 100 ml Other 600 ml 50 ml Output Urine Total 175 ml 300 ml 150 ml Stool Total 100 ml 200 ml Hemodialysis 500 ml Result Diagram: 01/22/1830 01/22/18 0530 Procedures PEG tube placement. Bone Marrow Biopsy 12/25/17 Objective Remarks General appearance: This elderly white male is awake . HEENT: Head normocephalic. Pupils reactive. Throat was clear. Neck: No bruits or thyroid enlargement or lymphadenopathy.Trach is in. Chest: Distant breath sounds with crackles at both lung bases. Occ wheezes . Cardiovascular: The heart sounds are regular, S1 and S2. No murmur. No S3. Abdomen: Is soft, benign. No masses. Extremities: 1 + edema. Pt is Lethargic. Assessment and Plan Assessment and Plan IMPRESSION: 1. Bibasilar pleural effusions with atelectasis. 2. History of hypertension. 3. Hyperlipidemia. 4. COPD, emphysema. 5. History of Anaplastic NHL . 6. Respiratory Failure, Recurrent Plan : 1. Cont T Bar FIo2 30 % 2 For dialysis today 3. Prednisone 10 mg daily 4. Nebs qid , duoneb. 5. Continue Tube feeds at 50 CC 6. CBC,BMP in am 7. Will usr PM Valve to talk if stable. 8. D/W family Katiuska Blevins MD Jan 22, 2018 13:03
--- NOTE | 2018-01-22 13:47 | PD.ONC.PN ---
Subjective Subjective Remarks Afebrile overnight. Patient resting in bed, sleeping. He is s/p vascath exchange this AM. Objective Data Date Time Temp Pulse Resp B/P (MAP) Pulse Ox O2 Delivery O2 Flow Rate FiO2 01/22/18 12:00 98.8 103 17 130/73 (92) 94 01/22/18 12:00 103 01/22/18 10:00 64 01/22/18 08:09 96 T-piece 5.00 28 01/22/18 08:00 54 01/22/18 08:00 98.4 54 18 169/77 (107) 98 01/22/18 05:45 16 01/22/18 04:00 97.8 98 18 134/70 (91) 96 01/22/18 00:00 98.2 96 19 142/74 (96) 93 01/21/18 22:00 96 01/21/18 20:00 96 01/21/18 20:00 98.2 96 17 136/70 (92) 95 01/21/18 19:34 96 T-piece 28 01/21/18 18:00 84 01/21/18 16:00 120 01/21/18 16:00 98.3 120 19 148/72 (97) 95 01/21/18 14:00 88 01/22/18 01/22/18 01/22/18 07:00 15:00 23:00 Intake Total 310 ml Output Total 150 ml Balance 160 ml Result Diagram: 01/22/18 0530 01/22/18 0530 Laboratory Results Laboratory Tests Test 01/22/18 05:30 White Blood Count 16.4 TH/MM3 Red Blood Count 2.79 MIL/MM3 Hemoglobin 8.0 GM/DL Hematocrit 23.9 % Mean Corpuscular Volume 85.8 FL Mean Corpuscular Hemoglobin 28.7 PG Mean Corpuscular Hemoglobin Concent 33.4 % Red Cell Distribution Width 17.8 % Platelet Count 277 TH/MM3 Mean Platelet Volume 9.3 FL Blood Urea Nitrogen 103 MG/DL Creatinine 4.61 MG/DL Random Glucose 112 MG/DL Calcium Level 8.3 MG/DL Sodium Level 141 MEQ/L Potassium Level 4.4 MEQ/L Chloride Level 103 MEQ/L Carbon Dioxide Level 25.9 MEQ/L Anion Gap 12 MEQ/L Estimat Glomerular Filtration Rate 13 ML/MIN Imaging Studies Last 24 hours Impressions Catheter Placement X-Ray 01/22/18 0000 Signed Impressions: Service Date/Time: Monday, January 22, 2018 09:05 - CONCLUSION: Uncomplicated venous catheter change as above. Jesús Crouch MD Administered Medications Medications (Trade) Dose Ordered Sig/Candace Route PRN Reason Start Time Stop Time Status Last Admin Dose Admin Sodium Chloride (NS Flush) 2 ml BID IV FLUSH 12/22/17 21:00 01/22/18 10:30 Ondansetron HCl (Zofran Inj) 4 mg Q6H PRN IVP NAUSEA OR VOMITING 12/22/17 18:15 01/01/18 10:02 Zolpidem Tartrate (Ambien) 5 mg HS PRN PO INSOMNIA 12/22/17 20:15 01/15/18 20:30 Megestrol Acetate (Megace Liq) 800 mg DAILY PO 12/23/17 09:00 01/22/18 08:21 Budesonide/ Formoterol Fumarate (Symbicort 160-4.5 Mcg Inh) 1 puff Q12HR INH 12/22/17 21:00 01/22/18 10:30 Atorvastatin Calcium (Lipitor) 80 mg DAILY PO 12/23/17 09:00 Future Hold 01/08/18 08:32 Multivitamins (Theragran) 1 tab DAILY PO 12/23/17 09:00 01/22/18 08:21 Heparin Sodium (Porcine) (Heparin Central Flush) 250 units UNSCH PRN IV FLUSH SEE PROTOCOL 12/22/17 20:30 12/27/17 20:27 Guaifenesin/ Dextromethorphan (Robitussin Dm 200-20 Mg/10 ml Liq) 10 ml Q4H PRN PO cough interfering with rest 12/22/17 21:00 12/26/17 18:27 Calcium Carbonate (Tums Chew) 500 mg Q12HR PRN CHEW indigestion 12/31/17 16:15 01/01/18 05:27 Prednisone (Deltasone) 10 mg BID PO 01/01/18 21:00 01/22/18 08:21 Insulin Aspart (NovoLOG SUPPLEMENTAL SCALE) 1 Q6HR SQ 01/07/18 18:00 01/19/18 00:00 Docusate Sodium (Colace Liq) 100 mg Q12HR OG-TUBE 01/07/18 21:00 01/22/18 10:30 Acetaminophen (Tylenol 650 Mg/ 20 ml Liq) 650 mg Q6H PRN G-TUBE fever 01/09/18 10:00 01/18/18 06:49 Lansoprazole (Prevacid Odt) 30 mg BID G-TUBE 01/09/18 21:00 01/22/18 08:22 Artificial Tears (Tears Naturale Opth Soln) 1 drop Q8HR EACH EYE 01/09/18 14:00 01/22/18 13:41 Aspirin (Aspirin Chew) 81 mg DAILY CHEW 01/10/18 11:00 Future Hold 01/19/18 09:25 Sodium Chloride 1,000 ml @ 0 mls/hr Q0M PRN OTHER For Prime & Rinse Back 01/11/18 11:53 01/19/18 19:27 Mannitol (Mannitol Inj) 12.5 gm UNSCH PRN IV WITH DIALYSIS 01/11/18 12:00 01/16/18 15:50 Albumin Human 100 ml @ 60 mls/hr UNSCH PRN IV WITH DIALYSIS 01/11/18 12:00 01/19/18 19:26 Sodium Chloride (NS Flush) 5 ml UNSCH PRN IV FLUSH WITH DIALYSIS 01/11/18 12:00 01/19/18 19:28 Heparin Sodium (Porcine) (Heparin Inj) UNSCH PRN .XX WITH DIALYSIS 01/11/18 12:00 01/19/18 19:28 Gentamicin Sulfate (Gentamicin Inj) 20 mg UNSCH PRN OTHER WITH DIALYSIS 01/11/18 12:00 01/19/18 19:29 Chlorhexidine Gluconate (Peridex 0.12% Liq) 15 ml BID@08,20 MT 01/13/18 08:00 01/22/18 08:00 Norepinephrine Bitartrate 4 mg/ Sodium Chloride 250 ml @ 7.5 mls/hr TITRATE PRN IV Blood pressure management 01/14/18 18:45 01/16/18 01:06 Metoclopramide HCl (Reglan Inj) 5 mg Q8HR IV PUSH 01/15/18 15:00 01/22/18 05:55 Sennosides (Senna Liq) 8.8 mg BID J-TUBE 01/15/18 21:00 01/22/18 08:20 Midodrine (Proamatine) 10 mg Q8H PO 01/16/18 09:00 01/22/18 08:21 Oxycodone HCl (Roxicodone Intensol Liq) 10 mg Q4H PO 01/17/18 08:00 01/22/18 12:31 Heparin Sodium (Porcine) (Heparin Inj) 5,000 units Q12HR SQ 01/17/18 21:00 Future Hold 01/19/18 09:25 Water (Free Water) VOLUME OF WATER: ( 200 ) ML TID G-TUBE 01/17/18 13:00 01/22/18 13:10 Albuterol/ Ipratropium (Duoneb Neb) 1 ampule TID NEB INH 01/19/18 14:00 01/22/18 11:41 Objective Remarks GENERAL: Elderly male lying upright in bed, sleeping. On 5L O2 via t-piece SKIN: Warm and dry. HEAD: Normocephalic. EYES: No injection or drainage. NECK: Supple, trachea midline. +trach in place. CARDIOVASCULAR: +S1/S2 RESPIRATORY: anterior clark with scattered rhonchi. GASTROINTESTINAL: Abdomen soft, non-tender, nondistended. 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 continues on dialysis. will continue to hold chemotherapy until improvement in renal function and pfs. --s/p C1 CHOP on 12/25. Anaplastic large cell, non-Hodgkin's lymphoma, at least stage III. (2) Renal insufficiency ICD Codes: N28.9 - Disorder of kidney and ureter, unspecified Plan: --Nephrology following. --receiving dialysis Assessment 72y/o male with newly diagnosed anaplastic large cell NHL. h/o COPD, hypercholesterolemia, hypertension, history of previous stroke. HPI: started 8 weeks ago with a cough mixed with greenish phlegm and shortness of breath. CT cap showed diffuse lymphadenopathy on both sides of the diaphragm. PET scan showed increased uptake in the lymph nodes involving the neck, chest, mediastinal and hilar area, retroperitoneum and pelvic lymph nodes. biopsy of the left neck mass=anaplastic large cell NHL echocardiogram, LVEF=55-70%. MUGA scan, showed EF of 60%. Attending Statement The exam, history, and the medical decision-making described in the above note were completed with the assistance of the mid-level provider. I reviewed and agree with the findings presented. I attest that I had a [id number] encounter with the patient on the same day, and personally performed and documented my assessment and findings in the medical record. Trach, on vent, Continue HD. unable to give further chemo due to severe medical condition and Poor PFS Susy La Jan 22, 2018 13:46 Josy Suarez MD Jan 22, 2018 23:25
[2018-01-22] MEDS: HEPARIN SODIUM - IV 10,000 UNITS/10 ML VIAL PRN (14:14)
[2018-01-22] MEDS: GENTAMICIN SULFATE 20 MG/2 ML VIAL OTHER PRN (14:14)
[2018-01-22] MEDS: ALBUMIN 25% INJ 100 ML IV PRN (14:51)
--- NOTE | 2018-01-22 19:30 | HHI.PR ---
Subjective Remarks He is weak and on a T Bar 30 %. tolerates feeds. Had vas cath done today Objective Vital Signs Date Time Temp Pulse Resp B/P (MAP) Pulse Ox O2 Delivery O2 Flow Rate FiO2 01/22/18 14:00 98 01/22/18 12:00 98.8 103 17 130/73 (92) 94 01/22/18 12:00 103 01/22/18 10:00 64 01/22/18 08:09 96 T-piece 5.00 28 01/22/18 08:00 54 01/22/18 08:00 98.4 54 18 169/77 (107) 98 01/22/18 05:45 16 01/22/18 04:00 97.8 98 18 134/70 (91) 96 01/22/18 00:00 98.2 96 19 142/74 (96) 93 01/21/18 22:00 96 01/21/18 20:00 96 01/21/18 20:00 98.2 96 17 136/70 (92) 95 01/21/18 19:34 96 T-piece 28 I/O 01/21/18 01/21/18 01/21/18 01/22/18 01/22/18 01/22/18 07:00 15:00 23:00 07:00 15:00 23:00 Intake Total 133 ml 500 ml 850 ml 310 ml 100 ml Output Total 275 ml 1000 ml 150 ml 3000 ml Balance -142 ml 500 ml -150 ml 160 ml -2900 ml IV Total 100 ml Tube Feeding 133 ml 250 ml 260 ml Packed Cells 400 ml Blood Product IV Normal Saline Flush 100 ml Other 600 ml 50 ml Output Urine Total 175 ml 300 ml 150 ml Stool Total 100 ml 200 ml Hemodialysis 500 ml 3000 ml Result Diagram: 01/22/18 0530 01/22/18 0530 Procedures PEG tube placement. Bone Marrow Biopsy 12/25/17 Objective Remarks General appearance: This elderly white male is awake . HEENT: Head normocephalic. Pupils reactive. Throat was clear. Neck: No bruits or thyroid enlargement or lymphadenopathy.Trach is in. Chest: Distant breath sounds with crackles at both lung bases. Occ wheezes . Cardiovascular: The heart sounds are regular, S1 and S2. No murmur. No S3. Abdomen: Is soft, benign. No masses. Extremities: 1 + edema. Pt is Lethargic. Assessment and Plan Assessment and Plan IMPRESSION: 1. Bibasilar pleural effusions with atelectasis. 2. History of hypertension. 3. Hyperlipidemia. 4. COPD, emphysema. 5. History of Anaplastic NHL . 6. Respiratory Failure, Recurrent Plan : 1. Cont T Bar FIo2 30 % 2 For dialysis in am 3. Prednisone 10 mg daily 4. Nebs qid , duoneb. 5. Continue Tube feeds at 60 CC 6. CXR ,BMP in am 7. Will use PM Valve to talk if stable. 8. No sedation . Katiuska Blevins MD Jan 22, 2018 19:29
[2018-01-22] MEDS: FUROSEMIDE 40 MG/4 ML VIAL IV PUSH SCH (21:09)
[2018-01-22] MEDS: ACETAMINOPHEN 325 MG TAB PO PRN (21:10)
[2018-01-23] VITALS (14 sets, daily range): BP systolic 121–160; BP diastolic 66–79; PULSE 90–122; RESP 14–21; TEMP 97.5–98.9; O2SAT 91–99
[2018-01-23] MEDS: METOCLOPRAMIDE HCL 10 MG/2 ML VIAL IV PUSH SCH ×3 (04:39→20:43)
[2018-01-23] MEDS: ARTIFICIAL TEARS OPTH SOLN 15 ML BTL EACH EYE SCH ×3 (04:42→20:43)
[2018-01-23] MEDS: ACETAMINOPHEN 325 MG TAB PO PRN (04:42)
[2018-01-23] MEDS: MIDODRINE 5 MG TAB PO SCH ×2 (04:42→09:08)
--- NOTE | 2018-01-23 05:37 | RADRPT ---
EXAM DATE/TIME: 01/23/2018 05:04 [facility] COMPARISON: CHEST SINGLE AP, January 19, 2018, 4:08. INDICATIONS : Shortness of breath. MEDICAL HISTORY : Chronic obstructive pulmonary disease. Lymphoma. Hypertension. Stage 3 renal disease. SURGICAL HISTORY : Fusion, lumbar. ENCOUNTER: Subsequent ACUITY: 3 weeks PAIN SCORE: Non-responsive. LOCATION: Bilateral chest FINDINGS: A single view of the chest demonstrates a bilateral airspace disease. More confluent density in the r ight perihilar region. Tracheostomy tube, left subclavian line and right-sided port are unchanged. He art enlarged. Osseous structures are intact. CONCLUSION: Bilateral airspace disease likely pulmonary edema. Kaveh Perales MD on January 23, 2018 at 5:35 Board Certified Radiologist. This report was verified electronically.
[2018-01-23 05:40] LABS: HEMATOCRIT 21.8 % (39.0-51.0); HEMOGLOBIN 7.4 GM/DL (13.0-17.0); MEAN CELL VOLUME 86.2 FL (80.0-100.0); MEAN CORPUSCULAR HEMOGLOBIN 29.2 PG (27.0-34.0); MEAN CORPUSCULAR HGB CONC 33.8 % (32.0-36.0); MEAN PLATELET VOLUME 8.5 FL (7.0-11.0); PLATELET COUNT 266 TH/MM3 (150-450); RED BLOOD COUNT 2.53 MIL/MM3 (4.50-5.90); RED CELL DISTRIBUTION WIDTH 17.3 % (11.6-17.2); WHITE BLOOD COUNT 22.5 TH/MM3 (4.0-11.0)
[2018-01-23] MEDS: INSULIN ASPART SUPPLEMENTAL SCALE SQ SCH ×4 (06:00→17:30)
[2018-01-23 06:11] LABS: BICARBONATE 28.1 MEQ/L (21.0-32.0); CALCIUM 8.3 MG/DL (8.5-10.1); CREATININE 3.54 MG/DL (0.60-1.30); PHOSPHORUS 4.2 MG/DL (2.5-4.9)
[2018-01-23] MEDS: RESP: ALBUTEROL 2.5 MG/IPRATROPIUM 0.5 MG NEB (SCH) INH (08:24)
[2018-01-23] MEDS: predniSONE 10 MG TAB PO SCH ×2 (09:07→20:43)
[2018-01-23] MEDS: SENNOSIDES SYRUP 8.8 MG/5 ML CUP J-TUBE SCH (09:07)
[2018-01-23] MEDS: DOCUSATE SODIUM 100 MG/10 ML UDC OG-TUBE SCH (09:07)
[2018-01-23] MEDS: LANSOPRAZOLE SOLUTAB 30 MG TAB G-TUBE SCH ×2 (09:07→20:43)
[2018-01-23] MEDS: MULTIVITAMIN TAB PO SCH (09:08)
[2018-01-23] MEDS: BUDESONIDE-FORMOTEROL 160/4.5 MCG INHALER INH SCH ×2 (09:08→20:43)
[2018-01-23] MEDS: MEGESTROL ACETATE SUSP 400 MG/10 ML CUP PO SCH (09:08)
[2018-01-23] MEDS: FUROSEMIDE 40 MG/4 ML VIAL IV PUSH SCH ×2 (09:08→20:43)
[2018-01-23] MEDS: CHLORHEXIDINE 0.12% (ORAL KIT) 15 ML CUP MT SCH (09:09)
[2018-01-23] MEDS: SODIUM CHLORIDE 0.9% FLUSH 10 ML FLUSH IV FLUSH SCH ×2 (09:09→20:43)
[2018-01-23] MEDS: FREE WATER G-TUBE SCH ×3 (09:09→17:29)
--- NOTE | 2018-01-23 11:38 | HHI.NPPN ---
Subjective Renal Failure: Acute Interval History Sitting up, much more alert. On 28% FiO2, 98% saturation. (Larissa Amin) Objective Data Data Vital Signs Date Time Temp Pulse Resp B/P (MAP) Pulse Ox O2 Delivery O2 Flow Rate FiO2 01/23/18 10:00 116 01/23/18 08:28 99 T-piece 5.00 28 01/23/18 08:00 98.7 108 21 121/68 (85) 99 01/23/18 08:00 90 01/23/18 06:00 105 01/23/18 05:42 21 01/23/18 04:00 94 01/23/18 04:00 98.5 122 19 133/66 (88) 97 01/23/18 02:00 122 01/23/18 00:00 97.5 94 19 133/66 (88) 97 01/23/18 00:00 94 01/22/18 22:00 114 01/22/18 20:00 97.4 106 18 128/64 (85) 92 01/22/18 20:00 106 01/22/18 19:41 92 T-piece 6.00 40 01/22/18 18:00 118 01/22/18 16:00 116 01/22/18 16:00 98.7 116 17 116/69 (85) 96 01/22/18 14:00 98 01/22/18 12:00 98.8 103 17 130/73 (92) 94 01/22/18 12:00 103 (Larissa Amin) -: 01/23/18 0520 01/23/18 0520 Imaging Last 72 hours Impressions Chest X-Ray 01/23/18 0600 Signed Impressions: Service Date/Time: Tuesday, January 23, 2018 05:04 - CONCLUSION: Bilateral airspace disease likely pulmonary edema. Kaveh Perales MD Catheter Placement X-Ray 01/22/18 0000 Signed Impressions: Service Date/Time: Monday, January 22, 2018 09:05 - CONCLUSION: Uncomplicated venous catheter change as above. Jesús Crouch MD Tubes & Lines: Vas-Cath, Hay Tubes & Lines Comment [facility]J VC, trach (Larissa Amin) Physical Exam General Appearance Remarks elderly, cachectic, awake; he is not on the vent trach collar in place mouth open (Larissa Amin) Eyes Eye Exam: Pupils Equal, Pupils Reactive (Larissa Amin) Neck Neck Exam: Neck Supple Neck Remarks new trach (placed 01/16), not bleeding (Larissa Amin) Pulmonary Resp Exam: Breath Sounds Equal, Decreased Bases Resp Remarks vented, on 40% FiO2. (Larissa Amin) Cardiology CV Exam: Regular, Normal Sinus Rhythm, Good Perfusion (Larissa Amin) Gastrointestinal/Abdomen GI Exam: Soft, Non-Tender, Bowel Sounds Present, Distended (Larissa Amin) Musculoskeletal MS Exam: Normal Tone, Unable to Ambulate (Larissa Amin) Integumentary Skin Exam: Warm, Dry (Larissa Amin) Extremeties Extremities Exam: Pedal Pulses Palpable, Moderate Edema, Pitting Edema, Dependent Edema (Larissa Amin) Neurologic Neuro Exam: Alert, Awake Neuro Remarks non verbal but awake (Larissa Amin) VTE Prophylaxis Device: SCDs (Larissa Amin) Assessment/Plan Discussed Condition With: Spouse Assessment Summary: CYNDI/Acute Renal Failure, Fluid/Volume Overload, Hypotension Electrolyte Assessment: Metabolic Acidosis Problem List: (1) Acute renal failure ICD Codes: N17.9 - Acute kidney failure, unspecified Status: Acute Plan: Normal renal function at baseline Renal failure onset 01/02, ATN most likely due to sepsis and hypotension. First HD 01/16. s/p Vascath replacement in IR 01/22. He had 4 hr treatment yesterday, 3L UF Has fluid retention., Continue Lasix BID Monitor urine output HD tomorrow and TTS PRN. Await renal recovery. Prognosis is guarded. Obtain daily labs. BP improved, stop midodrine. 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 CXR reviewed, may have PNA developing. WBC are higher. Family has discussed in depth with ID, they want to monitor him off antibiotics thinking that may be affecting his kidneys and increase risk of nosocomial infections. (4) Hypernatremia ICD Codes: E87.0 - Hyperosmolality and hypernatremia Plan: Improved Continue free water with tube feeding Follow labs (Larissa Amin) Plan patient was seen and examined. Agree with above assessment and plan. Continue to monitor urine output. Monitor electrolytes. Dialysis as needed. (Tan Christensen MD) Larissa Amin Jan 23, 2018 11:38 Tan Christensen MD Jan 23, 2018 21:52
[2018-01-23] MEDS: ACETAMINOPHEN 650 MG/20.3 ML UDC G-TUBE PRN (12:02)
--- NOTE | 2018-01-23 13:01 | HHI.PR ---
Subjective Remarks He is alert and on a T Bar 30 %. tolerates feeds. Had dialysis done and edema is less. Talking better Objective Vital Signs Date Time Temp Pulse Resp B/P (MAP) Pulse Ox O2 Delivery O2 Flow Rate FiO2 01/23/18 12:00 102 01/23/18 12:00 98.6 102 21 148/73 (98) 95 01/23/18 10:00 116 01/23/18 08:28 99 T-piece 5.00 28 01/23/18 08:00 98.7 108 21 121/68 (85) 99 01/23/18 08:00 90 01/23/18 06:00 105 01/23/18 05:42 21 01/23/18 04:00 94 01/23/18 04:00 98.5 122 19 133/66 (88) 97 01/23/18 02:00 122 01/23/18 00:00 97.5 94 19 133/66 (88) 97 01/23/18 00:00 94 01/22/18 22:00 114 01/22/18 20:00 97.4 106 18 128/64 (85) 92 01/22/18 20:00 106 01/22/18 19:41 92 T-piece 6.00 40 01/22/18 18:00 118 01/22/18 16:00 116 01/22/18 16:00 98.7 116 17 116/69 (85) 96 01/22/18 14:00 98 I/O 01/22/18 01/22/18 01/22/18 01/23/18 01/23/18 01/23/18 07:00 15:00 23:00 07:00 15:00 23:00 Intake Total 310 ml 1035 ml 440 ml Output Total 150 ml 3200 ml 150 ml Balance 160 ml -2165 ml 290 ml IV Total 100 ml Tube Feeding 260 ml 335 ml 320 ml Other 50 ml 600 ml 120 ml Output Urine Total 150 ml 200 ml 150 ml Stool Total 0 ml 0 ml Hemodialysis 3000 ml Result Diagram: 01/23/18 0520 01/23/18 0520 Procedures PEG tube placement. Bone Marrow Biopsy 12/25/17 Objective Remarks General appearance: This elderly white male is awake . HEENT: Head normocephalic. Pupils reactive. Throat was clear. Neck: No bruits or thyroid enlargement or lymphadenopathy.Trach is in. Chest: Distant breath sounds with crackles at both lung bases. Occ wheezes . Cardiovascular: The heart sounds are regular, S1 and S2. No murmur. No S3. Abdomen: Is soft, benign. No masses. Extremities: 1 + edema. Pt is alert and responds well. Assessment and Plan Assessment and Plan IMPRESSION: 1. Bibasilar pleural effusions with atelectasis. 2. History of hypertension. 3. Hyperlipidemia. 4. COPD, emphysema. 5. History of Anaplastic NHL . 6. Respiratory Failure, Recurrent Plan : 1. Cont T Bar FIo2 28 % 2 For dialysis in am 3. Prednisone 10 mg daily 4. Nebs qid , duoneb. 5. Continue Tube feeds at 60 CC 6. Remove trach sutures and change trach to #6 7. Will use PM Valve to talk if stable. 8. No sedation . 9. Up in chair as tolerated Katiuska Blevins MD Jan 23, 2018 13:01
--- NOTE | 2018-01-23 13:48 | PD.ONC.PN ---
Subjective Subjective Remarks Afebrile overnight. Patient resting in bed in nad. awake and alert today and interacting with family. family hoping to get him up to chair tomorrow. Objective Data Date Time Temp Pulse Resp B/P (MAP) Pulse Ox O2 Delivery O2 Flow Rate FiO2 01/23/18 13:02 20 01/23/18 12:00 102 01/23/18 12:00 98.6 102 21 148/73 (98) 95 01/23/18 10:00 116 01/23/18 08:28 99 T-piece 5.00 28 01/23/18 08:00 98.7 108 21 121/68 (85) 99 01/23/18 08:00 90 01/23/18 06:00 105 01/23/18 05:42 21 01/23/18 04:00 94 01/23/18 04:00 98.5 122 19 133/66 (88) 97 01/23/18 02:00 122 01/23/18 00:00 97.5 94 19 133/66 (88) 97 01/23/18 00:00 94 01/22/18 22:00 114 01/22/18 20:00 97.4 106 18 128/64 (85) 92 01/22/18 20:00 106 01/22/18 19:41 92 T-piece 6.00 40 01/22/18 18:00 118 01/22/18 16:00 116 01/22/18 16:00 98.7 116 17 116/69 (85) 96 01/22/18 14:00 98 01/23/18 01/23/18 01/23/18 07:00 15:00 23:00 Intake Total 440 ml Output Total 150 ml Balance 290 ml Result Diagram: 01/23/1820 01/23/1820 Laboratory Results Laboratory Tests Test 01/23/18 05:20 01/23/18 09:52 White Blood Count 22.5 TH/MM3 Red Blood Count 2.53 MIL/MM3 Hemoglobin 7.4 GM/DL Hematocrit 21.8 % Mean Corpuscular Volume 86.2 FL Mean Corpuscular Hemoglobin 29.2 PG Mean Corpuscular Hemoglobin Concent 33.8 % Red Cell Distribution Width 17.3 % Platelet Count 266 TH/MM3 Mean Platelet Volume 8.5 FL Blood Urea Nitrogen 70 MG/DL Creatinine 3.54 MG/DL Random Glucose 121 MG/DL Calcium Level 8.3 MG/DL Phosphorus Level 4.2 MG/DL Sodium Level 142 MEQ/L Potassium Level 3.8 MEQ/L Chloride Level 102 MEQ/L Carbon Dioxide Level 28.1 MEQ/L Anion Gap 12 MEQ/L Estimat Glomerular Filtration Rate 17 ML/MIN Prealbumin 21 MG/DL Imaging Studies Last 24 hours Impressions Chest X-Ray 01/23/18 0600 Signed Impressions: Service Date/Time: Tuesday, January 23, 2018 05:04 - CONCLUSION: Bilateral airspace disease likely pulmonary edema. Kaveh Perales MD Administered Medications Medications (Trade) Dose Ordered Sig/Canadce Route PRN Reason Start Time Stop Time Status Last Admin Dose Admin Sodium Chloride (NS Flush) 2 ml BID IV FLUSH 12/22/17 21:00 01/23/18 09:09 Ondansetron HCl (Zofran Inj) 4 mg Q6H PRN IVP NAUSEA OR VOMITING 12/22/17 18:15 01/01/18 10:02 Zolpidem Tartrate (Ambien) 5 mg HS PRN PO INSOMNIA 12/22/17 20:15 01/15/18 20:30 Megestrol Acetate (Megace Liq) 800 mg DAILY PO 12/23/17 09:00 01/23/18 09:08 Budesonide/ Formoterol Fumarate (Symbicort 160-4.5 Mcg Inh) 1 puff Q12HR INH 12/22/17 21:00 01/23/18 09:08 Atorvastatin Calcium (Lipitor) 80 mg DAILY PO 12/23/17 09:00 Future Hold 01/08/18 08:32 Multivitamins (Theragran) 1 tab DAILY PO 12/23/17 09:00 01/23/18 09:08 Heparin Sodium (Porcine) (Heparin Central Flush) 250 units UNSCH PRN IV FLUSH SEE PROTOCOL 12/22/17 20:30 12/27/17 20:27 Guaifenesin/ Dextromethorphan (Robitussin Dm 200-20 Mg/10 ml Liq) 10 ml Q4H PRN PO cough interfering with rest 12/22/17 21:00 12/26/17 18:27 Calcium Carbonate (Tums Chew) 500 mg Q12HR PRN CHEW indigestion 12/31/17 16:15 01/01/18 05:27 Prednisone (Deltasone) 10 mg BID PO 01/01/18 21:00 01/23/18 09:07 Insulin Aspart (NovoLOG SUPPLEMENTAL SCALE) 1 Q6HR SQ 01/07/18 18:00 01/19/18 00:00 Docusate Sodium (Colace Liq) 100 mg Q12HR OG-TUBE 01/07/18 21:00 01/23/18 09:07 Acetaminophen (Tylenol 650 Mg/ 20 ml Liq) 650 mg Q6H PRN G-TUBE fever 01/09/18 10:00 01/23/18 12:02 Lansoprazole (Prevacid Odt) 30 mg BID G-TUBE 01/09/18 21:00 01/23/18 09:07 Artificial Tears (Tears Naturale Opth Soln) 1 drop Q8HR EACH EYE 01/09/18 14:00 01/23/18 04:42 Aspirin (Aspirin Chew) 81 mg DAILY CHEW 01/10/18 11:00 Future Hold 01/19/18 09:25 Sodium Chloride 1,000 ml @ 0 mls/hr Q0M PRN OTHER For Prime & Rinse Back 01/11/18 11:53 01/19/18 19:27 Mannitol (Mannitol Inj) 12.5 gm UNSCH PRN IV WITH DIALYSIS 01/11/18 12:00 01/16/18 15:50 Albumin Human 100 ml @ 60 mls/hr UNSCH PRN IV WITH DIALYSIS 01/11/18 12:00 01/22/18 14:51 Sodium Chloride (NS Flush) 5 ml UNSCH PRN IV FLUSH WITH DIALYSIS 01/11/18 12:00 01/19/18 19:28 Heparin Sodium (Porcine) (Heparin Inj) UNSCH PRN .XX WITH DIALYSIS 01/11/18 12:00 01/22/18 14:14 Gentamicin Sulfate (Gentamicin Inj) 20 mg UNSCH PRN OTHER WITH DIALYSIS 01/11/18 12:00 01/22/18 14:14 Acetaminophen (Tylenol) 650 mg UNSCH PRN PO for headach, pain, temp > 101F 01/11/18 12:00 01/23/18 04:42 Chlorhexidine Gluconate (Peridex 0.12% Liq) 15 ml BID@08,20 MT 01/13/18 08:00 01/23/18 09:09 Norepinephrine Bitartrate 4 mg/ Sodium Chloride 250 ml @ 7.5 mls/hr TITRATE PRN IV Blood pressure management 01/14/18 18:45 01/16/18 01:06 Metoclopramide HCl (Reglan Inj) 5 mg Q8HR IV PUSH 01/15/18 15:00 01/23/18 04:39 Sennosides (Senna Liq) 8.8 mg BID J-TUBE 01/15/18 21:00 01/23/18 09:07 Midodrine (Proamatine) 10 mg Q8H PO 01/16/18 09:00 Future Hold 01/23/18 09:08 Heparin Sodium (Porcine) (Heparin Inj) 5,000 units Q12HR SQ 01/17/18 21:00 Future Hold 01/19/18 09:25 Water (Free Water) VOLUME OF WATER: ( 200 ) ML TID G-TUBE 01/17/18 13:00 01/23/18 12:03 Albuterol/ Ipratropium (Duoneb Neb) 1 ampule TID NEB INH 01/19/18 14:00 01/23/18 08:24 Furosemide (Lasix Inj) 40 mg BID IV PUSH 01/22/18 21:00 01/23/18 09:08 Objective Remarks GENERAL: Pleasant elderly male, sitting up in bed, smiling/joking and interacting. SKIN: Warm and dry. HEAD: Normocephalic. EYES: No injection or drainage. NECK: Supple, trachea midline. CARDIOVASCULAR: Regular rate and rhythm without murmurs. RESPIRATORY: anterior clark with scattered rhonchi. On 5L O2 via trach GASTROINTESTINAL: Abdomen soft, non-tender, nondistended. EXTREMITIES: No cyanosis. ble with diffuse edema. MUSCULOSKELETAL: Adequate muscle tone. NEUROLOGICAL: awake, alert and following commands. 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 renal function improved. pleased with overall progress, d/w patient and continuing to monitor for improvement before initiating next cycle of chemotherapy --s/p C1 CHOP on 12/25. Anaplastic large cell, non-Hodgkin's lymphoma, at least stage III. (2) Renal insufficiency ICD Codes: N28.9 - Disorder of kidney and ureter, unspecified Plan: --Nephrology following. --receiving dialysis Assessment 72y/o male with newly diagnosed anaplastic large cell NHL. h/o COPD, hypercholesterolemia, hypertension, history of previous stroke. HPI: started 8 weeks ago with a cough mixed with greenish phlegm and shortness of breath. CT cap showed diffuse lymphadenopathy on both sides of the diaphragm. PET scan showed increased uptake in the lymph nodes involving the neck, chest, mediastinal and hilar area, retroperitoneum and pelvic lymph nodes. biopsy of the left neck mass=anaplastic large cell NHL echocardiogram, LVEF=55-70%. MUGA scan, showed EF of 60%. Attending Statement The exam, history, and the medical decision-making described in the above note were completed with the assistance of the mid-level provider. I reviewed and agree with the findings presented. I attest that I had a [id number] encounter with the patient on the same day, and personally performed and documented my assessment and findings in the medical record. More awake, alert, interactive and try to talk. at bedside who is happy with his progress. D/W Resp and RN to d/w Dr Jeremy osullivan to change the tube/ valve so that he can talk ( get frustrated when people do not understand what he wants to say ) Continue HD. Will need rehab placement. Susy La Jan 23, 2018 13:48 Josy Suarez MD Jan 23, 2018 18:33
[2018-01-23] MEDS ORDERED: NYSTATIN SUSP 500,000 U/5 ML CUP SWISH-SWAL PRN (17:45)
[2018-01-23] MEDS ORDERED: DOCUSATE SODIUM 100 MG/10 ML UDC OG-TUBE PRN (18:00)
--- NOTE | 2018-01-23 18:16 | HHI.PR ---
Subjective Remarks Follow up for respiratory failure, lymphoma and acute renal failure. Patient is currently doing well. He is much more alert, interactive. Tries to mouth a few words. Extends right hand to do handshake. is at bedside. No acute concerns. Objective Vitals Vital Signs Date Time Temp Pulse Resp B/P (MAP) Pulse Ox O2 Delivery O2 Flow Rate FiO2 01/23/18 16:00 98 01/23/18 16:00 98.3 98 21 126/74 (91) 95 01/23/18 14:00 102 01/23/18 13:02 20 01/23/18 12:00 102 01/23/18 12:00 98.6 102 21 148/73 (98) 95 01/23/18 10:00 116 01/23/18 08:28 99 T-piece 5.00 28 01/23/18 08:00 98.7 108 21 121/68 (85) 99 01/23/18 08:00 90 01/23/18 06:00 105 01/23/18 05:42 21 01/23/18 04:00 94 01/23/18 04:00 98.5 122 19 133/66 (88) 97 01/23/18 02:00 122 01/23/18 00:00 97.5 94 19 133/66 (88) 97 01/23/18 00:00 94 01/22/18 22:00 114 01/22/18 20:00 97.4 106 18 128/64 (85) 92 01/22/18 20:00 106 01/22/18 19:41 92 T-piece 6.00 40 I/O 01/22/18 01/22/18 01/22/18 01/23/18 01/23/18 01/23/18 07:00 15:00 23:00 07:00 15:00 23:00 Intake Total 310 ml 1035 ml 440 ml Output Total 150 ml 3200 ml 150 ml Balance 160 ml -2165 ml 290 ml IV Total 100 ml Tube Feeding 260 ml 335 ml 320 ml Other 50 ml 600 ml 120 ml Output Urine Total 150 ml 200 ml 150 ml Stool Total 0 ml 0 ml Hemodialysis 3000 ml Result Diagram: 01/23/1851901/23/18519 Objective Remarks GENERAL: Alert, NAD. SKIN: Warm and dry. HEAD: Normocephalic. EYES: No scleral icterus. No injection or drainage. NECK: On T-Piece, No JVD or lymphadenopathy. CARDIOVASCULAR: Regular rate and rhythm without murmurs, gallops, or rubs. RESPIRATORY: Breath sounds equal bilaterally. No accessory muscle use. GASTROINTESTINAL: Abdomen soft, non-tender, nondistended. MUSCULOSKELETAL: No cyanosis 3+ lower ext edema. BACK: Nontender without obvious deformity. No CVA tenderness. Procedures 01/16/2018 Percutaneous tracheostomy placement. 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 prognosis at this point is poor. I do not think he will survive this illness. Family continues to press for aggressive measures and FULL CODE status. now s/p trach and vascath. Now that he is on dialysis, his acute medical problems are controlled- he certainly will need weaning from mechanical ventilation and strengthening before his lymphoma can be managed. will begin seeking placement for him. 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 hold on MRI. 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 Patient's wants to reduce any sedatives. IF patient becomes more agitated, we can try low dose seroquel. CV: Hypertension Dyslipidemia 2D echocardiogram revealed EF 65-70%. Tricuspid regurgitation. PA P 38 mmHg Currently normotensive. Resp: Acute hypoxic hypercapnic respiratory failure secondary to aspiration pneumonia Right middle lobe pulmonary nodule 8 mm recommend 6 month follow-up CT chest COPD Patient written for budesonide/formoterol 160/4.5 2 puffs twice daily. Albuterol/ipratropium aerosols every 6 hours with albuterol aerosols every 2 hours as needed dyspnea On prednisone [address] Blevins/pulmonology is following s/p trach 01/[address] Graf GI: Status post GJ conversion by IR 01/08 Hypoalbuminemia Acute protein calorie malnutrition - severe. Lansoprazole 30 mg twice daily for GI prophylaxis Docusate sodium liquid 100 mg twice daily for bowel regimen - will change it to PRN. On Megestrol 800 mg daily for anorexia Nutrition recommends vital 1.5 goal 60 cc an hour. Continue tube feed - currently at 40cc/hour. prealbumin 25 on 01/16. : Hay catheter for accurate I's and O's in a critically ill patient: keep. needing accurate i/o's in acute oliguric renal failure. Endo: Sliding scale insulin to maintain euglycemia/low regimen every 6 hours TSH is 1.18 Renal: Acute kidney injury likely secondary to sepsis/ATN Right-sided nephrolithiasis Urine eosinophils negative. Renal ultrasound reveals medical renal disease and prior CT abdomen/pelvis revealed non-obstructing right renal stones. Followed by nephrology Avoid nephrotoxic medication Currently in free water 300 cc every 6 and chlorothiazide 500 mg IV 1. Nephrology to guide renal therapies. 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 Followed by hematology. currently not stable enough for chemotherapy. would be a candidate if he ever stabilized, but I do not see this as a functional reality. unlikely to tolerate future chemotherapies. No indication for transfusion of blood products at this time ID: ID recommended discontinuation of all abx on 01/15/2018. Patient has been afebrile so far. FEN: Hypernatremia Continue Tube feed. Gradually increase to at least 50cc/ hour. Replace electrolytes as clinically indicated MSK: Sacral decubitus ulcer Wound care management Prophylaxis -GI -lansoprazole -DVT -SCD/heparin subcu Madhu Ibarra DO Jan 23, 2018 18:16
--- NOTE | 2018-01-23 20:48 | HHI.PR ---
Subjective Remarks NOT SEEN Objective Vitals Vital Signs Date Time Temp Pulse Resp B/P (MAP) Pulse Ox O2 Delivery O2 Flow Rate FiO2 01/23/18 19:52 94 T-piece 5.00 28 01/23/18 18:00 106 01/23/18 16:00 98 01/23/18 16:00 98.3 98 21 126/74 (91) 95 01/23/18 14:00 102 01/23/18 13:02 20 01/23/18 12:00 102 01/23/18 12:00 98.6 102 21 148/73 (98) 95 01/23/18 10:00 116 01/23/18 08:28 99 T-piece 5.00 28 01/23/18 08:00 98.7 108 21 121/68 (85) 99 01/23/18 08:00 90 01/23/18 06:00 105 01/23/18 05:42 21 01/23/18 04:00 94 01/23/18 04:00 98.5 122 19 133/66 (88) 97 01/23/18 02:00 122 01/23/18 00:00 97.5 94 19 133/66 (88) 97 01/23/18 00:00 94 01/22/18 22:00 114 I/O 01/22/18 01/22/18 01/22/18 01/23/18 01/23/18 01/23/18 07:00 15:00 23:00 07:00 15:00 23:00 Intake Total 310 ml 1035 ml 440 ml 984 ml Output Total 150 ml 3200 ml 150 ml 350 ml Balance 160 ml -2165 ml 290 ml 634 ml IV Total 100 ml Tube Feeding 260 ml 335 ml 320 ml 584 ml Other 50 ml 600 ml 120 ml 400 ml Output Urine Total 150 ml 200 ml 150 ml 150 ml Stool Total 0 ml 0 ml 200 ml Hemodialysis 3000 ml Result Diagram: 01/23/18 0520 01/23/18 0520 Imaging Last Impressions Chest X-Ray 01/23/18 0600 Signed Impressions: Service Date/Time: Tuesday, January 23, 2018 05:04 - CONCLUSION: Bilateral airspace disease likely pulmonary edema. Kaveh Perales MD Catheter Placement X-Ray 01/22/18 0000 Signed Impressions: Service Date/Time: Monday, January 22, 2018 09:05 - CONCLUSION: Uncomplicated venous catheter change as above. Jesús Crouch MD Brain MRI 01/18/18 0000 Signed Impressions: Service Date/Time: Thursday, January 18, 2018 12:24 - CONCLUSION: 1. Diffuse atrophy. 2. No acute findings seen; severe technical limitations due to patient motion. The diffusion-weighted images are nondiagnostic. Siva Cooley MD Abdomen Ultrasound 01/16/18 0000 Signed Impressions: Service Date/Time: Tuesday, January 16, 2018 09:47 - CONCLUSION: 1. Moderate amount of peritoneal ascites. 2. Pancreas obscured by overlying bowel gas. 3. Otherwise negative. Faisal Tinajero MD Lower Extremity Ultrasound 01/15/18 0000 Signed Impressions: Service Date/Time: Monday, January 15, 2018 18:00 - CONCLUSION: Normal examination. Elbert Carrasquillo MD Abdomen X-Ray 01/15/18 0000 Signed Impressions: Service Date/Time: Monday, January 15, 2018 15:06 - CONCLUSION: Nonspecific, nonobstructive bowel gas pattern. PEG tube present. Andres Parekh MD Gastrostomy Tube Change 01/08/18 0000 Signed Impressions: Service Date/Time: Monday, January 08, 2018 14:35 - CONCLUSION: Conversion of the patient's existing gastrostomy tube to a gastrojejunostomy tube. Siva Bean Jr., MD Renal Ultrasound 01/05/18 0000 Signed Impressions: Service Date/Time: Friday, January 05, 2018 08:00 - CONCLUSION: Echogenic kidneys suggesting medical renal disease. Some ascites. Bilateral pleural effusions. Lee Mijares MD Head CT 01/05/18 0000 Signed Impressions: Service Date/Time: Friday, January 05, 2018 11:41 - CONCLUSION: 1. No acute abnormality is seen. 2. Old lacunar infarct at the left basal ganglia. 3. Fluid in the mastoid air cells on the right. Andres Valero MD Small Bowel X-Ray 01/03/18 0000 Signed Impressions: Service Date/Time: December 14:27 - CONCLUSION: 1. No leakage identified on injection through gastrostomy tube. No small bowel obstruction or significant dilatation. Elbert Carrasquillo MD Abdomen/Pelvis CT 01/02/18 0000 Signed Impressions: Service Date/Time: Tuesday, January 02, 2018 21:38 - CONCLUSION: 1. Free intraperitoneal air of unknown etiology. On the supine view most of the free air is around the gastrostomy tube and tip of the nasogastric tube as discussed above. 2. Mild to moderate ascites. Moderate anasarca. 3. Moderate bilateral effusions with basilar atelectasis. 4. Nonobstructing right renal calculus. Hay catheter in bladder. Elbert Carrasquillo MD Chest CT 12/30/17 0000 Signed Impressions: Service Date/Time: Saturday, December 30, 2017 21:13 - CONCLUSION: 1. Free intraperitoneal air in the upper abdomen of uncertain etiology. There is a gastrostomy present. 2. Moderate bilateral pleural effusions with compressive atelectasis. Patchy air space consolidation in the right upper lobe. 3. Moderate anasarca and ascites. 4. Findings called to the floor at the time of dictation. Elbert Carrasquillo MD Chest Ultrasound 12/27/17 0000 Signed Impressions: Service Date/Time: December 21:39 - CONCLUSION: Large left pleural effusion and would be amenable to thoracentesis. Frandy was made on the overlying skin. Andres Parekh MD Bone Biopsy CT 12/25/17 1142 Signed Impressions: Service Date/Time: Monday, December 25, 2017 12:32 - CONCLUSION: 1. Uncomplicated CT guided bone marrow aspirate. 2. Uncomplicated CT guided bone marrow biopsy. Lee Mijares MD CT Angiography 12/25/17 0000 Signed Impressions: Service Date/Time: Monday, December 25, 2017 09:26 - CONCLUSION: 1. No CT evidence for pulmonary artery embolism. 2. Moderate to large bilateral pleural effusions with associated compressive atelectasis at the lung bases. 3. 8mm nodule in the right middle lobe. Followup CT examination may be performed at 6 months to document stability if this has not been evaluated previously. 4. Very mildly prominent mediastinal and hilar nodes and partially imaged upper abdominal lymphadenopathy in this patient with history of lymphoma. Miguel Ashton MD Objective Remarks GENERAL: Alert, NAD. SKIN: Warm and dry. HEAD: Normocephalic. EYES: No scleral icterus. No injection or drainage. NECK: On T-Piece, No JVD or lymphadenopathy. CARDIOVASCULAR: Regular rate and rhythm without murmurs, gallops, or rubs. RESPIRATORY: Breath sounds equal bilaterally. No accessory muscle use. GASTROINTESTINAL: Abdomen soft, non-tender, nondistended. MUSCULOSKELETAL: No cyanosis 3+ lower ext edema. BACK: Nontender without obvious deformity. No CVA tenderness. 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 prognosis at this point is poor. I do not think he will survive this illness. Family continues to press for aggressive measures and FULL CODE status. now s/p trach and vascath. Now that he is on dialysis, his acute medical problems are controlled- he certainly will need weaning from mechanical ventilation and strengthening before his lymphoma can be managed. will begin seeking placement for him. 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 Patient's wants to reduce any sedatives. IF patient becomes more agitated, we can try low dose seroquel. CV: Hypertension Dyslipidemia 2D echocardiogram revealed EF 65-70%. Tricuspid regurgitation. PA P 38 mmHg Currently normotensive. Resp: Acute hypoxic hypercapnic respiratory failure secondary to aspiration pneumonia Right middle lobe pulmonary nodule 8 mm recommend 6 month follow-up CT chest COPD Patient written for budesonide/formoterol 160/4.5 2 puffs twice daily. Albuterol/ipratropium aerosols every 6 hours with albuterol aerosols every 2 hours as needed dyspnea On prednisone [address] Blevins/pulmonology is following s/p trach 01/[address] Graf GI: Status post GJ conversion by IR 01/08 Hypoalbuminemia Acute protein calorie malnutrition - severe. Lansoprazole 30 mg twice daily for GI prophylaxis Docusate sodium liquid 100 mg twice daily for bowel regimen - will change it to PRN. On Megestrol 800 mg daily for anorexia Nutrition recommends vital 1.5 goal 60 cc an hour. Continue tube feed - currently at 40cc/hour. prealbumin 25 on 01/16. : Hay catheter for accurate I's and O's in a critically ill patient: keep. needing accurate i/o's in acute oliguric renal failure. Endo: Sliding scale insulin to maintain euglycemia/low regimen every 6 hours TSH is 1.18 Renal: Acute kidney injury likely secondary to sepsis/ATN Right-sided nephrolithiasis Urine eosinophils negative. Renal ultrasound reveals medical renal disease and prior CT abdomen/pelvis revealed non-obstructing right renal stones. Followed by nephrology Avoid nephrotoxic medication Currently in free water 300 cc every 6 and chlorothiazide 500 mg IV 1. Nephrology to guide renal therapies. 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 Followed by hematology. Currently not stable enough for chemotherapy. Would be a candidate if he ever stabilized, but I do not see this as a functional reality. Unlikely to tolerate future chemotherapies. No indication for transfusion of blood products at this time ID: ID recommended discontinuation of all abx on 01/15/2018. Patient has been afebrile so far. FEN: Hypernatremia Continue Tube feed. Gradually increase to at least 50cc/ hour. Replace electrolytes as clinically indicated MSK: Sacral decubitus ulcer Wound care management Prophylaxis -GI -lansoprazole -DVT -SCD/heparin subcu Jonatan Green MD Jan 23, 2018 20:48
[2018-01-24] VITALS (13 sets, daily range): BP systolic 147–169; BP diastolic 76–103; PULSE 88–119; RESP 18–31; TEMP 98.3–98.9; O2SAT 92–100
[2018-01-24] MEDS: INSULIN ASPART SUPPLEMENTAL SCALE SQ SCH ×4 (06:00→18:00)
[2018-01-24] MEDS: METOCLOPRAMIDE HCL 10 MG/2 ML VIAL IV PUSH SCH ×3 (06:33→22:03)
[2018-01-24] MEDS: ARTIFICIAL TEARS OPTH SOLN 15 ML BTL EACH EYE SCH ×3 (06:33→22:03)
[2018-01-24 07:45] LABS: ALBUMIN 2.2 GM/DL (3.4-5.0); BICARBONATE 25.8 MEQ/L (21.0-32.0); CALCIUM 8.6 MG/DL (8.5-10.1); CREATININE 4.18 MG/DL (0.60-1.30); PHOSPHORUS 4.8 MG/DL (2.5-4.9)
[2018-01-24] MEDS: MULTIVITAMIN TAB PO SCH (08:30)
[2018-01-24] MEDS: FREE WATER G-TUBE SCH ×3 (08:30→18:00)
[2018-01-24] MEDS: LANSOPRAZOLE SOLUTAB 30 MG TAB G-TUBE SCH ×2 (08:30→22:03)
[2018-01-24] MEDS: FUROSEMIDE 40 MG/4 ML VIAL IV PUSH SCH ×2 (08:31→22:02)
[2018-01-24] MEDS: MEGESTROL ACETATE SUSP 400 MG/10 ML CUP PO SCH (08:31)
[2018-01-24] MEDS: SODIUM CHLORIDE 0.9% FLUSH 10 ML FLUSH IV FLUSH SCH ×2 (08:31→22:03)
[2018-01-24] MEDS: BUDESONIDE-FORMOTEROL 160/4.5 MCG INHALER INH SCH ×2 (08:31→21:00)
[2018-01-24] MEDS ORDERED: predniSONE 10 MG TAB PO SCH (09:00)
--- NOTE | 2018-01-24 10:33 | HHI.PR ---
Subjective Remarks Follow-up respiratory failure. Patient denies shortness of breath's tolerating T-bar. He is trying to communicate mouthing that he is having abdominal discomfort. He is tolerating tube feeding. He has stable loose stools negative for C. difficile. He has Ahy catheter as he is receiving IV Lasix discussed with nursing Objective Vitals Vital Signs Date Time Temp Pulse Resp B/P (MAP) Pulse Ox O2 Delivery O2 Flow Rate FiO2 01/24/18 09:14 95 T-piece 28 01/24/18 06:00 102 01/24/18 04:00 98.3 114 24 149/91 (110) 93 01/24/18 04:00 101 01/24/18 02:00 102 01/24/18 00:00 102 01/24/18 00:00 98.9 103 18 147/76 (99) 94 01/23/18 22:00 108 01/23/18 20:00 98.9 112 14 160/79 (106) 91 01/23/18 20:00 116 01/23/18 19:52 94 T-piece 5.00 28 01/23/18 18:00 106 01/23/18 16:00 98 01/23/18 16:00 98.3 98 21 126/74 (91) 95 01/23/18 14:00 102 01/23/18 13:02 20 01/23/18 12:00 102 01/23/18 12:00 98.6 102 21 148/73 (98) 95 I/O 01/23/18 01/23/18 01/23/18 01/24/18 01/24/18 01/24/18 07:00 15:00 23:00 07:00 15:00 23:00 Intake Total 440 ml 984 ml 346 ml Output Total 150 ml 350 ml 275 ml Balance 290 ml 634 ml 71 ml Tube Feeding 320 ml 584 ml 346 ml Other 120 ml 400 ml Output Urine Total 150 ml 150 ml 175 ml Stool Total 0 ml 200 ml 100 ml Result Diagram: 01/23/18 0520 01/24/18 0621 Imaging Last Impressions Chest X-Ray 01/23/18 0600 Signed Impressions: Service Date/Time: Tuesday, January 23, 2018 05:04 - CONCLUSION: Bilateral airspace disease likely pulmonary edema. Kaveh Perales MD Catheter Placement X-Ray 01/22/18 0000 Signed Impressions: Service Date/Time: Monday, January 22, 2018 09:05 - CONCLUSION: Uncomplicated venous catheter change as above. Jesús Crouch MD Brain MRI 01/18/18 0000 Signed Impressions: Service Date/Time: Thursday, January 18, 2018 12:24 - CONCLUSION: 1. Diffuse atrophy. 2. No acute findings seen; severe technical limitations due to patient motion. The diffusion-weighted images are nondiagnostic. Siva Cooley MD Abdomen Ultrasound 01/16/18 Signed Impressions: Service Date/Time: Tuesday, January 16, 2018 09:47 - CONCLUSION: 1. Moderate amount of peritoneal ascites. 2. Pancreas obscured by overlying bowel gas. 3. Otherwise negative. Faisal Tinajero MD Lower Extremity Ultrasound 01/15/18 0000 Signed Impressions: Service Date/Time: Monday, January 15, 2018 18:00 - CONCLUSION: Normal examination. Elbert Carrasquillo MD Abdomen X-Ray 01/15/18 Signed Impressions: Service Date/Time: Monday, January 15, 2018 15:06 - CONCLUSION: Nonspecific, nonobstructive bowel gas pattern. PEG tube present. Andres Parekh MD Gastrostomy Tube Change 01/08/18 0000 Signed Impressions: Service Date/Time: Monday, January 08, 2018 14:35 - CONCLUSION: Conversion of the patient's existing gastrostomy tube to a gastrojejunostomy tube. Siva Bean Jr., MD Renal Ultrasound 01/05/18 0000 Signed Impressions: Service Date/Time: Friday, January 05, 2018 08:00 - CONCLUSION: Echogenic kidneys suggesting medical renal disease. Some ascites. Bilateral pleural effusions. Lee Mijares MD Head CT 01/05/18 0000 Signed Impressions: Service Date/Time: Friday, January 05, 2018 11:41 - CONCLUSION: 1. No acute abnormality is seen. 2. Old lacunar infarct at the left basal ganglia. 3. Fluid in the mastoid air cells on the right. Andres Valero MD Small Bowel X-Ray 01/03/18 0000 Signed Impressions: Service Date/Time: December 14:27 - CONCLUSION: 1. No leakage identified on injection through gastrostomy tube. No small bowel obstruction or significant dilatation. Elbert Carrasquillo MD Abdomen/Pelvis CT 01/02/18 0000 Signed Impressions: Service Date/Time: Tuesday, January 02, 2018 21:38 - CONCLUSION: 1. Free intraperitoneal air of unknown etiology. On the supine view most of the free air is around the gastrostomy tube and tip of the nasogastric tube as discussed above. 2. Mild to moderate ascites. Moderate anasarca. 3. Moderate bilateral effusions with basilar atelectasis. 4. Nonobstructing right renal calculus. Hay catheter in bladder. Elbert Carrasquillo MD Chest CT 12/30/17 0000 Signed Impressions: Service Date/Time: Saturday, December 30, 2017 21:13 - CONCLUSION: 1. Free intraperitoneal air in the upper abdomen of uncertain etiology. There is a gastrostomy present. 2. Moderate bilateral pleural effusions with compressive atelectasis. Patchy air space consolidation in the right upper lobe. 3. Moderate anasarca and ascites. 4. Findings called to the floor at the time of dictation. Elbert Carrasquillo MD Chest Ultrasound 12/27/17 0000 Signed Impressions: Service Date/Time: December 21:39 - CONCLUSION: Large left pleural effusion and would be amenable to thoracentesis. Frandy was made on the overlying skin. Andres Parekh MD Bone Biopsy CT 12/25/17 1142 Signed Impressions: Service Date/Time: Monday, December 25, 2017 12:32 - CONCLUSION: 1. Uncomplicated CT guided bone marrow aspirate. 2. Uncomplicated CT guided bone marrow biopsy. Lee Mijares MD CT Angiography 12/25/17 0000 Signed Impressions: Service Date/Time: Monday, December 25, 2017 09:26 - CONCLUSION: 1. No CT evidence for pulmonary artery embolism. 2. Moderate to large bilateral pleural effusions with associated compressive atelectasis at the lung bases. 3. 8mm nodule in the right middle lobe. Followup CT examination may be performed at 6 months to document stability if this has not been evaluated previously. 4. Very mildly prominent mediastinal and hilar nodes and partially imaged upper abdominal lymphadenopathy in this patient with history of lymphoma. Miguel Ashton MD Objective Remarks GENERAL: Alert, NAD with generalized weakness. SKIN: Warm and dry. NECK: On T-Piece, No JVD or lymphadenopathy. CARDIOVASCULAR: Regular rate and rhythm without murmurs, gallops, or rubs. RESPIRATORY: Breath sounds equal bilaterally. No accessory muscle use. GASTROINTESTINAL: Abdomen soft, non-tender, nondistended. MUSCULOSKELETAL: No cyanosis 3+ lower ext edema. BACK: Nontender without obvious deformity. No CVA tenderness. 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 prognosis at this point is poor. I do not think he will survive this illness. Family continues to press for aggressive measures and FULL CODE s/p trach and vascath. Now that he is on dialysis, his acute medical problems are controlled- he certainly will need weaning from mechanical ventilation and strengthening before his lymphoma can be managed. 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 Patient's wants to reduce any sedatives. IF patient becomes more agitated, we can try low dose seroquel. CV: Hypertension Dyslipidemia 2D echocardiogram revealed EF 65-70%. Tricuspid regurgitation. PA P 38 mmHg Currently normotensive. Resp: Acute hypoxic hypercapnic respiratory failure secondary to aspiration pneumonia Right middle lobe pulmonary nodule 8 mm recommend 6 month follow-up CT chest COPD Patient written for budesonide/formoterol 160/4.5 2 puffs twice daily. Albuterol/ipratropium aerosols every 6 hours with albuterol aerosols every 2 hours as needed dyspnea On prednisone [address] Blevins/pulmonology is following, continue to wean s/p trach 01/[address] Graf GI: Status post GJ conversion by IR 01/08 Hypoalbuminemia Acute protein calorie malnutrition - severe. Abdominal pain Lansoprazole 30 mg twice daily for GI prophylaxis Docusate sodium liquid 100 mg twice daily for bowel regimen - will change it to PRN. On Megestrol 800 mg daily for anorexia Nutrition recommends vital 1.5 goal 60 cc an hour. Continue tube feed - currently at 40cc/hour. prealbumin 25 on 01/16. Previous abdominal x-ray unremarkable. Patient has no fever, leukocytosis and acidosis. We will continue to monitor abdominal status. : Hay catheter for accurate I's and O's in a critically ill patient: keep. needing accurate i/o's in acute oliguric renal failure. Endo: Sliding scale insulin to maintain euglycemia/low regimen every 6 hours TSH is 1.18 Renal: Acute kidney injury likely secondary to sepsis/ATN Right-sided nephrolithiasis Urine eosinophils negative. Renal ultrasound reveals medical renal disease and prior CT abdomen/pelvis revealed non-obstructing right renal stones. Followed by nephrology Avoid nephrotoxic medication Continue IV Lasix for fluid retention Nephrology to guide renal therapies. 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 Followed by hematology. Currently not stable enough for chemotherapy. Would be a candidate if he ever stabilized, but I do not see this as a functional reality. Unlikely to tolerate future chemotherapies. No indication for transfusion of blood products at this time ID: ID recommended discontinuation of all abx on 01/15/2018. Patient has been afebrile so far. FEN: Hypernatremia Continue Tube feed. Gradually increase to at least 50cc/ hour. Replace electrolytes as clinically indicated MSK: Sacral decubitus ulcer Wound care management Prophylaxis -GI -lansoprazole -DVT -SCD/heparin subcu Discharge Planning Stable for transfer to floor near nurses station if okay with pulmonary Abando,Jonatan Gan MD Jan 24, 2018 10:33
--- NOTE | 2018-01-24 12:04 | HHI.NPPN ---
Subjective General Problems: Edema Renal Failure: Acute Interval History He is awake, not on vent. Oliguric. Needs dialysis today. Edema of lower extremities persists. (Larissa Amin) Objective Data Data Vital Signs Date Time Temp Pulse Resp B/P (MAP) Pulse Ox O2 Delivery O2 Flow Rate FiO2 01/24/18 10:00 104 01/24/18 09:14 95 T-piece 28 01/24/18 08:00 98.4 88 19 169/82 (111) 94 01/24/18 08:00 88 01/24/18 06:00 102 01/24/18 04:00 98.3 114 24 149/91 (110) 93 01/24/18 04:00 101 01/24/18 02:00 102 01/24/18 00:00 102 01/24/18 00:00 98.9 103 18 147/76 (99) 94 01/23/18 22:00 108 01/23/18 20:00 98.9 112 14 160/79 (106) 91 01/23/18 20:00 116 01/23/18 19:52 94 T-piece 5.00 28 01/23/18 18:00 106 01/23/18 16:00 98 01/23/18 16:00 98.3 98 21 126/74 (91) 95 01/23/18 14:00 102 01/23/18 13:02 20 (Larissa Amin) -: 01/23/18 0520 01/24/18 0621 Imaging Last 72 hours Impressions Chest X-Ray 01/23/18 0600 Signed Impressions: Service Date/Time: Tuesday, January 23, 2018 05:04 - CONCLUSION: Bilateral airspace disease likely pulmonary edema. Kaveh Perales MD Catheter Placement X-Ray 01/22/18 0000 Signed Impressions: Service Date/Time: Monday, January 22, 2018 09:05 - CONCLUSION: Uncomplicated venous catheter change as above. Jesús Crouch MD Tubes & Lines: Vas-Cath, Hay Tubes & Lines Comment [facility] VC, trach (Larissa Amin) Physical Exam General Appearance Remarks elderly, cachectic, awake; he is off the vent trach collar in plac (Larissa Amin) Eyes Eye Exam: Pupils Equal, Pupils Reactive (Larissa Amin) Neck Neck Exam: Neck Supple Neck Remarks new trach (placed 01/16), not bleeding (Larissa Amin) Pulmonary Resp Exam: Breath Sounds Equal, Decreased Bases Resp Remarks vented, on 40% FiO2. (Larissa Amin) Cardiology CV Exam: Regular, Normal Sinus Rhythm, Good Perfusion (Larissa Amin) Gastrointestinal/Abdomen GI Exam: Soft, Non-Tender, Bowel Sounds Present, Distended (Larissa Amin) Musculoskeletal MS Exam: Normal Tone, Unable to Ambulate (Larissa Amin) Integumentary Skin Exam: Warm, Dry (Larissa Amin) Extremeties Extremities Exam: Pedal Pulses Palpable, Moderate Edema, Pitting Edema, Dependent Edema (Larissa Amin) Neurologic Neuro Exam: Alert, Awake Neuro Remarks non verbal but awake (Larissa Amin) VTE Prophylaxis Device: SCDs (Larissa Amin) Assessment/Plan Discussed Condition With: Spouse Assessment Summary: CYNDI/Acute Renal Failure, Fluid/Volume Overload, Hypotension Electrolyte Assessment: Metabolic Acidosis Problem List: (1) Acute renal failure ICD Codes: N17.9 - Acute kidney failure, unspecified Status: Acute Plan: Normal renal function at baseline Renal failure onset 01/02, ATN most likely due to sepsis and hypotension. First HD 01/16. s/p Vascath replacement in IR 01/22. Has fluid retention., Continue Lasix BID Monitor urine output, has had become HD TTS PRN, will need treatment today. Await renal recovery. Prognosis is guarded. Obtain daily labs. BP improved, off midodrine. 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 CXR reviewed, may have PNA developing. WBC are higher. Family has discussed in depth with ID, they want to monitor him off antibiotics thinking that may be affecting his kidneys and increase risk of nosocomial infections. (4) Hypernatremia ICD Codes: E87.0 - Hyperosmolality and hypernatremia Plan: Improved Continue free water with tube feeding Follow labs (Larissa Amin) Plan patient was seen and examined. Agree with above assessment and plan. (Tan Christensen MD) Larissa Amin Jan 24, 2018 12:04 Tan Christensen MD Jan 24, 2018 20:56
[2018-01-24] MEDS ORDERED: cloNIDine HCL 0.1 MG TAB J-TUBE PRN (13:30)
[2018-01-24] MEDS ORDERED: DOCUSATE SODIUM 100 MG/10 ML UDC J-TUBE PRN (13:30)
[2018-01-24] MEDS ORDERED: LACTULOSE SYRUP 20 GM/30 ML CUP J-TUBE PRN (13:30)
[2018-01-24] MEDS ORDERED: BENZONATATE 100 MG CAP PRN (13:30)
[2018-01-24] MEDS ORDERED: ACETAMINOPHEN 325 MG TAB J-TUBE PRN (13:30)
[2018-01-24] MEDS ORDERED: diphenhydrAMINE HCL 25 MG CAP J-TUBE PRN (13:30)
[2018-01-24] MEDS ORDERED: guaiFENesin/DEXTROMETHORPHAN 200 MG/20 MG/10 ML CUP J-TUBE PRN (17:00)
--- NOTE | 2018-01-24 18:39 | HHI.PR ---
Subjective Remarks He is alert and remains on a T Bar 30 %. tolerates feeds. Had dialysis done and edema is less. Wants to get trach out.WBC at 22.4 Objective Vital Signs Date Time Temp Pulse Resp B/P (MAP) Pulse Ox O2 Delivery O2 Flow Rate FiO2 01/24/18 18:00 103 01/24/18 16:00 98.4 112 28 168/90 (116) 92 01/24/18 16:00 112 01/24/18 14:00 119 01/24/18 12:00 99 01/24/18 12:00 98.5 99 31 163/87 (112) 99 01/24/18 10:00 104 01/24/18 09:14 95 T-piece 28 01/24/18 08:00 98.4 88 19 169/82 (111) 94 01/24/18 08:00 88 01/24/18 06:00 102 01/24/18 04:00 98.3 114 24 149/91 (110) 93 01/24/18 04:00 101 01/24/18 02:00 102 01/24/18 00:00 102 01/24/18 00:00 98.9 103 18 147/76 (99) 94 01/23/18 22:00 108 01/23/18 20:00 98.9 112 14 160/79 (106) 91 01/23/18 20:00 116 01/23/18 19:52 94 T-piece 5.00 28 I/O 01/23/18 01/23/18 01/23/18 01/24/18 01/24/18 01/24/18 07:00 15:00 23:00 07:00 15:00 23:00 Intake Total 440 ml 984 ml 346 ml 1075 ml Output Total 150 ml 350 ml 275 ml 500 ml Balance 290 ml 634 ml 71 ml 575 ml Tube Feeding 320 ml 584 ml 346 ml 475 ml Tube Irrigant 600 ml Other 120 ml 400 ml Output Urine Total 150 ml 150 ml 175 ml 300 ml Stool Total 0 ml 200 ml 100 ml 200 ml Result Diagram: 01/23/18 0520 01/24/18 0621 Procedures PEG tube placement. Bone Marrow Biopsy 12/25/17 Objective Remarks General appearance: This elderly white male is awake pale. HEENT: Head normocephalic. Pupils reactive. Throat was clear. Neck: No bruits or thyroid enlargement or lymphadenopathy.Trach is in. Chest: Distant breath sounds with crackles at both lung bases. Occ wheezes . Cardiovascular: The heart sounds are regular, S1 and S2. No murmur. No S3. Abdomen: Is soft, benign. No masses. Extremities: 1 + edema. Pt is alert and responds well. No focal deficits. Assessment and Plan Assessment and Plan IMPRESSION: 1. Bibasilar pleural effusions with atelectasis. 2. History of hypertension. 3. Hyperlipidemia. 4. COPD, emphysema. 5. History of Anaplastic NHL . 6. Respiratory Failure, Recurrent Plan : 1. Cont T Bar FIo2 28 % 2 For dialysis in am 3. Prednisone 10 mg daily 4. Nebs qid , duoneb. 5. Continue Tube feeds at 60 CC 6. Will use PM valve for talking 7. Up in chair 8. ID to reevaluate Leukocytosis 9. Rpt CBC, BMP Katiuska Blevins MD Jan 24, 2018 18:39
[2018-01-24] MEDS: GENTAMICIN SULFATE 20 MG/2 ML VIAL OTHER PRN (20:27)
[2018-01-24] MEDS: HEPARIN SODIUM - IV 10,000 UNITS/10 ML VIAL PRN (20:28)
[2018-01-25] VITALS (12 sets, daily range): BP systolic 141–158; BP diastolic 77–95; PULSE 80–108; RESP 16–34; TEMP 97.6–97.9; O2SAT 91–97
[2018-01-25] MEDS: ACETAMINOPHEN 650 MG/20.3 ML UDC G-TUBE PRN (01:17)
[2018-01-25 05:54] LABS: ALBUMIN 2.1 GM/DL (3.4-5.0); BICARBONATE 31.1 MEQ/L (21.0-32.0); CALCIUM 8.1 MG/DL (8.5-10.1); CREATININE 3.1 MG/DL (0.60-1.30); PHOSPHORUS 3.5 MG/DL (2.5-4.9)
[2018-01-25] MEDS: ARTIFICIAL TEARS OPTH SOLN 15 ML BTL EACH EYE SCH ×2 (06:00→14:00)
[2018-01-25] MEDS: INSULIN ASPART SUPPLEMENTAL SCALE SQ SCH ×4 (06:00→18:00)
[2018-01-25] MEDS: METOCLOPRAMIDE HCL 10 MG/2 ML VIAL IV PUSH SCH ×2 (06:59→18:33)
[2018-01-25] MEDS: LANSOPRAZOLE SOLUTAB 30 MG TAB G-TUBE SCH (08:32)
[2018-01-25] MEDS: FUROSEMIDE 40 MG/4 ML VIAL IV PUSH SCH (08:33)
[2018-01-25] MEDS: FREE WATER G-TUBE SCH ×3 (08:34→18:00)
[2018-01-25] MEDS: SODIUM CHLORIDE 0.9% FLUSH 10 ML FLUSH IV FLUSH SCH (08:34)
[2018-01-25] MEDS: BUDESONIDE-FORMOTEROL 160/4.5 MCG INHALER INH SCH (08:34)
[2018-01-25] MEDS ORDERED: MEGESTROL ACETATE SUSP 400 MG/10 ML CUP J-TUBE SCH (09:00)
[2018-01-25] MEDS ORDERED: MULTIVITAMIN TAB J-TUBE SCH (09:00)
[2018-01-25] MEDS ORDERED: predniSONE 10 MG TAB J-TUBE SCH (09:00)
--- NOTE | 2018-01-25 10:32 | HHI.NPPN ---
Subjective General Problems: Edema Renal Failure: Acute Interval History He is awake. Edema is much better. 2L UF with HD yesterday. Urine output has improved. (Larissa Amin) Objective Data Data Vital Signs Date Time Temp Pulse Resp B/P (MAP) Pulse Ox O2 Delivery O2 Flow Rate FiO2 01/25/18 06:00 90 01/25/18 04:00 97.6 106 16 141/95 (110) 91 01/25/18 04:00 106 01/25/18 02:00 84 01/25/18 01:56 100 Blow By 50 01/25/18 01:30 97 Trach Collar 8.00 35 01/25/18 00:00 108 01/25/18 00:00 97.9 108 34 141/95 (110) 91 01/24/18 22:40 100 Nasal Cannula 3.00 01/24/18 22:00 98.3 108 24 151/103 (119) 98 01/24/18 22:00 108 01/24/18 18:00 103 01/24/18 16:00 98.4 112 28 168/90 (116) 92 01/24/18 16:00 112 01/24/18 14:00 119 01/24/18 12:00 99 01/24/18 12:00 98.5 99 31 163/87 (112) 99 (Larissa Amin) -: 01/23/18 0520 01/25/18 0503 Imaging Last 72 hours Impressions Chest X-Ray 01/23/18 0600 Signed Impressions: Service Date/Time: Tuesday, January 23, 2018 05:04 - CONCLUSION: Bilateral airspace disease likely pulmonary edema. Kaveh Perales MD Tubes & Lines: Vas-Cath, Szymanski Tubes & Lines Comment [facility] VC, trach (Larissa Amin) Physical Exam General Appearance Remarks elderly, cachectic, awake; he is off the vent trach collar in plac (Larissa Amin) Eyes Eye Exam: Pupils Equal, Pupils Reactive (Larissa Amin) Neck Neck Exam: Neck Supple Neck Remarks new trach (placed /), not bleeding (Larissa Amin) Pulmonary Resp Exam: Breath Sounds Equal, Decreased Bases Resp Remarks vented, on 40% FiO2. (Larissa Amin) Cardiology CV Exam: Regular, Normal Sinus Rhythm, Good Perfusion (Larissa Amin) Gastrointestinal/Abdomen GI Exam: Soft, Non-Tender, Bowel Sounds Present, Distended (Larissa Amin) Musculoskeletal MS Exam: Normal Tone, Unable to Ambulate (Larissa Amin) Integumentary Skin Exam: Warm, Dry (Larissa Amin) Extremeties Extremities Exam: Pedal Pulses Palpable, Moderate Edema, Pitting Edema, Dependent Edema (Larissa Amin [employer]) Neurologic Neuro Exam: Alert, Awake Neuro Remarks non verbal but awake (Larissa Amin) VTE Prophylaxis Device: SCDs (Larissa Amin) Assessment/Plan Discussed Condition With: Spouse Assessment Summary: CYNDI/Acute Renal Failure, Fluid/Volume Overload Problem List: (1) Acute renal failure ICD Codes: N17.9 - Acute kidney failure, unspecified Status: Acute Plan: Normal renal function at baseline Renal failure onset 01/02, ATN most likely due to sepsis and hypotension. First HD 01/16. s/p Permcath replacement in IR 01/22. Dialyzed yesterday, 2L UF Monitor for renal recovery, urine output may be improving HD TTS (tomorrow) if needed On Lasix BID, 40 mg IV Repeat labs in AM Consider szymanski removal in upcoming days. Avoid nephrotoxic agents. 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 Codes: C84.70 - Anaplastic large cell lymphoma, ALK-negative, unspecified site Plan: Oncology is following He had one chemo treatment, renal failure has put additional treatments on hold (3) Respiratory failure ICD Codes: J96.90 - Respiratory failure, unspecified, unspecified whether with hypoxia or hypercapnia Plan: Pulmonary following Fluid removal as needed with HD, also on lasix BID s/p tracheostomy 01/16, on trach collar CXR reviewed Family has discussed in depth with ID, they want to monitor him off antibiotics thinking that may be affecting his kidneys and increase risk of nosocomial infections. (4) Hypernatremia ICD Codes: E87.0 - Hyperosmolality and hypernatremia Plan: Improved Continue free water with tube feeding Follow labs (Larissa Amin) Plan patient was seen and examined. Agree with above assessment and plan. Monitor for renal recovery. Dialysis prn. (Tan Christensen MD) Larissa Amin Jan 25, 2018 10:32 Tan Christensen MD Jan 25, 2018 12:46
--- NOTE | 2018-01-25 11:50 | HHI.PR ---
Subjective Remarks He is alert and remains on a T Bar 50 %. tolerates feeds. Had dialysis done and edema is less. Had PM valve placed and talking . Needs PT and OT and rehab placement Objective Vital Signs Date Time Temp Pulse Resp B/P (MAP) Pulse Ox O2 Delivery O2 Flow Rate FiO2 01/25/18 07:00 100 Blow By 50 01/25/18 06:00 90 01/25/18 04:00 97.6 106 16 141/95 (110) 91 01/25/18 04:00 106 01/25/18 02:00 84 01/25/18 01:56 100 Blow By 50 01/25/18 01:30 97 Trach Collar 8.00 35 01/25/18 00:00 108 01/25/18 00:00 97.9 108 34 141/95 (110) 91 01/24/18 22:40 100 Nasal Cannula 3.00 01/24/18 22:00 98.3 108 24 151/103 (119) 98 01/24/18 22:00 108 01/24/18 18:00 103 01/24/18 16:00 98.4 112 28 168/90 (116) 92 01/24/18 16:00 112 01/24/18 14:00 119 01/24/18 12:00 99 01/24/18 12:00 98.5 99 31 163/87 (112) 99 I/O 01/24/18 01/24/18 01/24/18 01/25/18 01/25/18 01/25/18 07:00 15:00 23:00 07:00 15:00 23:00 Intake Total 346 ml 1075 ml 1016 ml Output Total 275 ml 2500 ml 300 ml Balance 71 ml -1425 ml 716 ml Tube Feeding 346 ml 475 ml 416 ml Tube Irrigant 600 ml 600 ml Output Urine Total 175 ml 300 ml 200 ml Stool Total 100 ml 200 ml 100 ml Hemodialysis 2000 ml Result Diagram: 01/23/18 0520 01/25/18 0503 Procedures PEG tube placement. Bone Marrow Biopsy 12/25/17 Objective Remarks General appearance: This elderly white male is awake pale. HEENT: Head normocephalic. Pupils reactive. Throat was clear. Neck: No bruits or thyroid enlargement or lymphadenopathy.Trach is in. Chest: Distant breath sounds and crackles at both lung bases. Mild wheezes . Cardiovascular: The heart sounds are regular, S1 and S2. No murmur. No S3. Abdomen: Is soft, benign. No masses. Extremities: 1 + edema. Pt is alert and responds well. No focal deficits. Assessment and Plan Assessment and Plan IMPRESSION: 1. Bibasilar pleural effusions with atelectasis. 2. History of hypertension. 3. Hyperlipidemia. 4. COPD, emphysema. 5. History of Anaplastic NHL . 6. Respiratory Failure, Recurrent Plan : 1. Cont T Bar FIo2 28 %daytime 2 Will go on CPAP at HS , 02/23 , Fio2 28% 3. Prednisone 10 mg daily 4. Nebs qid , duoneb. 5. Continue Tube feeds at 60 CC 6. Will use PM valve for talking PRN 7. Up in chair 8. ID to reevaluate Leukocytosis 9. CXR CBC, BMP 10. Dr Carlos Enrique Fine will cover for me next 10 days Katiuska Blevins MD Jan 25, 2018 11:50
--- NOTE | 2018-01-25 14:22 | HHI.PR ---
Subjective Remarks Follow-up respiratory failure . Did not tolerate capping. Currently on T- piece. Discussed with [facility], patient has been accepted. Objective Vitals Vital Signs Date Time Temp Pulse Resp B/P (MAP) Pulse Ox O2 Delivery O2 Flow Rate FiO2 01/25/18 12:45 30 01/25/18 12:45 95 Trach Collar 28 01/25/18 07:00 100 Blow By 50 01/25/18 06:00 90 01/25/18 04:00 97.6 106 16 141/95 (110) 91 01/25/18 04:00 106 01/25/18 02:00 84 01/25/18 01:56 100 Blow By 50 01/25/18 01:30 97 Trach Collar 8.00 35 01/25/18 00:00 108 01/25/18 00:00 97.9 108 34 141/95 (110) 91 01/24/18 22:40 100 Nasal Cannula 3.00 01/24/18 22:00 98.3 108 24 151/103 (119) 98 01/24/18 22:00 108 01/24/18 18:00 103 01/24/18 16:00 98.4 112 28 168/90 (116) 92 01/24/18 16:00 112 I/O 01/24/18 01/24/18 01/24/18 01/25/18 01/25/18 01/25/18 07:00 15:00 23:00 07:00 15:00 23:00 Intake Total 346 ml 1075 ml 1016 ml Output Total 275 ml 2500 ml 300 ml Balance 71 ml -1425 ml 716 ml Tube Feeding 346 ml 475 ml 416 ml Tube Irrigant 600 ml 600 ml Output Urine Total 175 ml 300 ml 200 ml Stool Total 100 ml 200 ml 100 ml Hemodialysis 2000 ml Result Diagram: 01/23/18 0520 01/25/18 0503 Imaging Last Impressions Chest X-Ray 01/23/18 0600 Signed Impressions: Service Date/Time: Tuesday, January 23, 2018 05:04 - CONCLUSION: Bilateral airspace disease likely pulmonary edema. Kaveh Preales MD Catheter Placement X-Ray 01/22/18 0000 Signed Impressions: Service Date/Time: Monday, January 22, 2018 09:05 - CONCLUSION: Uncomplicated venous catheter change as above. Jesús Crouch MD Brain MRI 01/18/18 0000 Signed Impressions: Service Date/Time: Thursday, January 18, 2018 12:24 - CONCLUSION: 1. Diffuse atrophy. 2. No acute findings seen; severe technical limitations due to patient motion. The diffusion-weighted images are nondiagnostic. Siva Cooley MD Abdomen Ultrasound 01/16/18 0000 Signed Impressions: Service Date/Time: Tuesday, January 16, 2018 09:47 - CONCLUSION: 1. Moderate amount of peritoneal ascites. 2. Pancreas obscured by overlying bowel gas. 3. Otherwise negative. Faisal Tinajero MD Lower Extremity Ultrasound 01/15/18 0000 Signed Impressions: Service Date/Time: Monday, January 15, 2018 18:00 - CONCLUSION: Normal examination. Elbert Carrasquillo MD Abdomen X-Ray 01/15/18 0000 Signed Impressions: Service Date/Time: Monday, January 15, 2018 15:06 - CONCLUSION: Nonspecific, nonobstructive bowel gas pattern. PEG tube present. Andres Parekh MD Gastrostomy Tube Change 01/08/18 0000 Signed Impressions: Service Date/Time: Monday, January 08, 2018 14:35 - CONCLUSION: Conversion of the patient's existing gastrostomy tube to a gastrojejunostomy tube. Siva Bean Jr., MD Renal Ultrasound 01/05/18 0000 Signed Impressions: Service Date/Time: Friday, January 05, 2018 08:00 - CONCLUSION: Echogenic kidneys suggesting medical renal disease. Some ascites. Bilateral pleural effusions. Lee Mijares MD Head CT 01/05/18 0000 Signed Impressions: Service Date/Time: Friday, January 05, 2018 11:41 - CONCLUSION: 1. No acute abnormality is seen. 2. Old lacunar infarct at the left basal ganglia. 3. Fluid in the mastoid air cells on the right. Andres Valero MD Small Bowel X-Ray 01/03/18 0000 Signed Impressions: Service Date/Time: December 14:27 - CONCLUSION: 1. No leakage identified on injection through gastrostomy tube. No small bowel obstruction or significant dilatation. Elbert Carrasquillo MD Abdomen/Pelvis CT 01/02/18 0000 Signed Impressions: Service Date/Time: Tuesday, January 02, 2018 21:38 - CONCLUSION: 1. Free intraperitoneal air of unknown etiology. On the supine view most of the free air is around the gastrostomy tube and tip of the nasogastric tube as discussed above. 2. Mild to moderate ascites. Moderate anasarca. 3. Moderate bilateral effusions with basilar atelectasis. 4. Nonobstructing right renal calculus. Hay catheter in bladder. Elbert Carrasquillo MD Chest CT 12/30/17 0000 Signed Impressions: Service Date/Time: Saturday, December 30, 2017 21:13 - CONCLUSION: 1. Free intraperitoneal air in the upper abdomen of uncertain etiology. There is a gastrostomy present. 2. Moderate bilateral pleural effusions with compressive atelectasis. Patchy air space consolidation in the right upper lobe. 3. Moderate anasarca and ascites. 4. Findings called to the floor at the time of dictation. Elbert Carrasquillo MD Chest Ultrasound 12/27/17 0000 Signed Impressions: Service Date/Time: December 21:39 - CONCLUSION: Large left pleural effusion and would be amenable to thoracentesis. Frandy was made on the overlying skin. Andres Parekh MD Bone Biopsy CT 12/25/17 1142 Signed Impressions: Service Date/Time: Monday, December 25, 2017 12:32 - CONCLUSION: 1. Uncomplicated CT guided bone marrow aspirate. 2. Uncomplicated CT guided bone marrow biopsy. Lee Mijares MD CT Angiography 12/25/17 0000 Signed Impressions: Service Date/Time: Monday, December 25, 2017 09:26 - CONCLUSION: 1. No CT evidence for pulmonary artery embolism. 2. Moderate to large bilateral pleural effusions with associated compressive atelectasis at the lung bases. 3. 8mm nodule in the right middle lobe. Followup CT examination may be performed at 6 months to document stability if this has not been evaluated previously. 4. Very mildly prominent mediastinal and hilar nodes and partially imaged upper abdominal lymphadenopathy in this patient with history of lymphoma. Miguel Ashton MD Objective Remarks GENERAL: Alert, NAD with generalized weakness. SKIN: Warm and dry. NECK: On T-Piece, No JVD or lymphadenopathy. CARDIOVASCULAR: Regular rate and rhythm without murmurs, gallops, or rubs. RESPIRATORY: Breath sounds equal bilaterally. No accessory muscle use. GASTROINTESTINAL: Abdomen soft, non-tender, nondistended. MUSCULOSKELETAL: No cyanosis 3+ lower ext edema. BACK: Nontender without obvious deformity. No CVA tenderness. 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 prognosis at this point is poor. I do not think he will survive this illness. Family continues to press for aggressive measures and FULL CODE s/p trach and vascath. Now that he is on dialysis, his acute medical problems are controlled- he certainly will need weaning from mechanical ventilation and strengthening before his lymphoma can be managed. 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 Patient's wants to reduce any sedatives. IF patient becomes more agitated, we can try low dose seroquel. CV: Hypertension Dyslipidemia 2D echocardiogram revealed EF 65-70%. Tricuspid regurgitation. PA P 38 mmHg Restart Lopressor Resp: Acute hypoxic hypercapnic respiratory failure secondary to aspiration pneumonia Right middle lobe pulmonary nodule 8 mm recommend 6 month follow-up CT chest COPD Patient written for budesonide/formoterol 160/4.5 2 puffs twice daily. Albuterol/ipratropium aerosols every 6 hours with albuterol aerosols every 2 hours as needed dyspnea On prednisone [address] Blevins/pulmonology is following, continue to wean s/p trach 01/[address] Graf GI: Status post GJ conversion by IR 3/27 Hypoalbuminemia Acute protein calorie malnutrition - severe. Abdominal pain Lansoprazole 30 mg twice daily for GI prophylaxis Docusate sodium liquid 100 mg twice daily for bowel regimen - will change it to PRN. On Megestrol 800 mg daily for anorexia Nutrition recommends vital 1.5 goal 60 cc an hour. Continue tube feed - currently at 40cc/hour. prealbumin 25 on 01/16. Previous abdominal x-ray unremarkable. Patient has no fever, leukocytosis and acidosis. We will continue to monitor abdominal status. : Hay catheter for accurate I's and O's in a critically ill patient: keep. needing accurate i/o's in acute oliguric renal failure. Endo: Sliding scale insulin to maintain euglycemia/low regimen every 6 hours TSH is 1.18 Renal: Acute kidney injury likely secondary to sepsis/ATN Right-sided nephrolithiasis Urine eosinophils negative. Renal ultrasound reveals medical renal disease and prior CT abdomen/pelvis revealed non-obstructing right renal stones. Followed by nephrology Avoid nephrotoxic medication Continue IV Lasix for fluid retention Nephrology to guide renal therapies. 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 Followed by hematology. Currently not stable enough for chemotherapy. Would be a candidate if he ever stabilized, but I do not see this as a functional reality. Unlikely to tolerate future chemotherapies. No indication for transfusion of blood products at this time ID: ID recommended discontinuation of all abx on 01/15/2018. Patient has been afebrile so far. Leukocytosis likely secondary to steroids. No fever will continue to monitor FEN: Hypernatremia Continue Tube feed. Gradually increase to at least 50cc/ hour. Replace electrolytes as clinically indicated MSK: Sacral decubitus ulcer Wound care management Prophylaxis -GI -lansoprazole -DVT -SCD/heparin subcu Discharge Planning Stable for dc to [facility] Jonatan Green MD Jan 25, 2018 14:22
--- NOTE | 2018-01-25 16:31 | HHI.DCPOC ---
Discharge Care Plan Diagnosis: (1) Respiratory failure Your Health Problems Are: Difficulty with ADL Exercise Tolerance Goals to Promote Your Health * To prevent worsening of your condition and complications * To maintain your health at the optimal level Directions to Meet Your Goals Take your medications as prescribed Follow your dietary instruction Follow activity as directed Keep your appointments as scheduled Take your immunizations and boosters as scheduled If your symptoms worsen call your PCP, if no PCP go to Urgent Care Center or Emergency Room Smoking is Dangerous to Your Health. Avoid second hand smoke Call the 24-hour hour crisis hotline for domestic abuse at Jonatan Green MD Jan 25, 2018 16:31
[2018-01-25] MEDS ORDERED: Megestrol Liq J-TUBE (16:46)
[2018-01-25] MEDS ORDERED: CLOT10TR BUCCAL (16:46)
[2018-01-25] MEDS ORDERED: PREV30TA3 G-TUBE (16:46)
[2018-01-25] MEDS ORDERED: PRED10 J-TUBE (16:46)
[2018-01-25] MEDS ORDERED: Furosemide IV PUSH (16:46)
[2018-01-25] MEDS ORDERED: METO25TA3 J-TUBE (16:46)
[2018-01-25] MEDS ORDERED: Budeson-Formot 160-4.5 Mcg Inh INH (16:46)
[2018-01-25] MEDS ORDERED: THERTAB15 J-TUBE (16:46)
--- NOTE | 2018-01-25 16:48 | HHI.DS ---
Discharge Summary Admission Date Dec 22, 2017 at 17:26 Discharge Date: Jan 25, 2018 Admitting Diagnosis Stage 3B anaplastic large cell lymphoma . 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 Dominguez is a 72 y/o male with a history of hypertension, hyperlipidemia, COPD, and peripheral neuropathy along with newly diagnosed anaplastic large cell lymphoma who was transferred from [facility] where he was diagnosed to [facility] to receive treatment due to insurance reasons. The patient was admitted to [facility] for evaluation after presenting to the ER on 12/13/2017 complaining of difficulty breathing and productive cough not relieved after 3 different courses of antibiotic therapy prescribed by patient's primary care physician. He was found to have pneumonia - I was unable to determine the course of treatment from review of meds and hospital records. He also has had a lump on his left neck since August 2018 which was biopsied and showed anaplastic large cell lymphoma alk negative. The oncologist at [facility] recommended chemotherapy to begin as soon as possible and possible bone marrow aspiration but due to insurance concerns he had to be transferred to [facility] for further treatment. He sees an oncologist in [place] as an outpatient - Dr. Somers. He has seen ENT Dr. Thorne. The patient is denying pain at the time of my visit but reports fatigue, nonproductive congested cough, and shortness of breath. Patient reports that his symptoms first started in June 2017 but have progressively worsened until his SOB became so severe that he felt like he "couldn't breath" prior to presenting to ED on 12/13. Denies associated fever or chills. CBC/BMP: 01/23/18 0520 01/25/18 0503 Significant Findings Laboratory Tests Test 01/23/18 05:20 01/23/18 09:52 01/24/18 06:21 01/25/18 05:03 White Blood Count 22.5 TH/MM3 (4.0-11.0) Red Blood Count 2.53 MIL/MM3 (4.50-5.90) Hemoglobin 7.4 GM/DL (13.0-17.0) Hematocrit 21.8 % (39.0-51.0) Red Cell Distribution Width 17.3 % (11.6-17.2) Blood Urea Nitrogen 70 MG/DL (7-18) 81 MG/DL (7-18) 52 MG/DL (7-18) Creatinine 3.54 MG/DL (0.60-1.30) 4.18 MG/DL (0.60-1.30) 3.10 MG/DL (0.60-1.30) Random Glucose 121 MG/DL (74-106) 110 MG/DL (74-106) 114 MG/DL (74-106) Calcium Level 8.3 MG/DL (8.5-10.1) 8.1 MG/DL (8.5-10.1) Estimat Glomerular Filtration Rate 17 ML/MIN (>89) 14 ML/MIN (>89) 20 ML/MIN (>89) Albumin 2.2 GM/DL (3.4-5.0) 2.1 GM/DL (3.4-5.0) Imaging Last Impressions Chest X-Ray 01/23/18 0600 Signed Impressions: Service Date/Time: Tuesday, January 23, 2018 05:04 - CONCLUSION: Bilateral airspace disease likely pulmonary edema. Kaveh Perales MD Catheter Placement X-Ray 01/22/18 0000 Signed Impressions: Service Date/Time: Monday, January 22, 2018 09:05 - CONCLUSION: Uncomplicated venous catheter change as above. Jesús Crouch MD Brain MRI 01/18/18 0000 Signed Impressions: Service Date/Time: Thursday, January 18, 2018 12:24 - CONCLUSION: 1. Diffuse atrophy. 2. No acute findings seen; severe technical limitations due to patient motion. The diffusion-weighted images are nondiagnostic. Siva Cooley MD Abdomen Ultrasound 01/16/18 Signed Impressions: Service Date/Time: Tuesday, January 16, 2018 09:47 - CONCLUSION: 1. Moderate amount of peritoneal ascites. 2. Pancreas obscured by overlying bowel gas. 3. Otherwise negative. Faisal Tinajero MD Lower Extremity Ultrasound 01/15/18 Signed Impressions: Service Date/Time: Monday, January 15, 2018 18:00 - CONCLUSION: Normal examination. Elbert Carrasquillo MD Abdomen X-Ray 01/15/18 Signed Impressions: Service Date/Time: Monday, January 15, 2018 15:06 - CONCLUSION: Nonspecific, nonobstructive bowel gas pattern. PEG tube present. Andres Parekh MD Gastrostomy Tube Change 01/08/18 0000 Signed Impressions: Service Date/Time: Monday, January 08, 2018 14:35 - CONCLUSION: Conversion of the patient's existing gastrostomy tube to a gastrojejunostomy tube. Siva Bean Jr., MD Renal Ultrasound 01/05/18 0000 Signed Impressions: Service Date/Time: Friday, January 05, 2018 08:00 - CONCLUSION: Echogenic kidneys suggesting medical renal disease. Some ascites. Bilateral pleural effusions. Lee Mijares MD Head CT 01/05/18 0000 Signed Impressions: Service Date/Time: Friday, January 05, 2018 11:41 - CONCLUSION: 1. No acute abnormality is seen. 2. Old lacunar infarct at the left basal ganglia. 3. Fluid in the mastoid air cells on the right. Andres Valero MD Small Bowel X-Ray 01/03/18 0000 Signed Impressions: Service Date/Time: December 14:27 - CONCLUSION: 1. No leakage identified on injection through gastrostomy tube. No small bowel obstruction or significant dilatation. Elbert Carrasquillo MD Abdomen/Pelvis CT 01/02/18 0000 Signed Impressions: Service Date/Time: Tuesday, January 02, 2018 21:38 - CONCLUSION: 1. Free intraperitoneal air of unknown etiology. On the supine view most of the free air is around the gastrostomy tube and tip of the nasogastric tube as discussed above. 2. Mild to moderate ascites. Moderate anasarca. 3. Moderate bilateral effusions with basilar atelectasis. 4. Nonobstructing right renal calculus. Hay catheter in bladder. Elbert Carrasquillo MD Chest CT 12/30/17 0000 Signed Impressions: Service Date/Time: Saturday, December 30, 2017 21:13 - CONCLUSION: 1. Free intraperitoneal air in the upper abdomen of uncertain etiology. There is a gastrostomy present. 2. Moderate bilateral pleural effusions with compressive atelectasis. Patchy air space consolidation in the right upper lobe. 3. Moderate anasarca and ascites. 4. Findings called to the floor at the time of dictation. Elbert Carrasquillo MD Chest Ultrasound 12/27/17 0000 Signed Impressions: Service Date/Time: December 21:39 - CONCLUSION: Large left pleural effusion and would be amenable to thoracentesis. Frandy was made on the overlying skin. Andres Parekh MD Bone Biopsy CT 12/25/17 1142 Signed Impressions: Service Date/Time: Monday, December 25, 2017 12:32 - CONCLUSION: 1. Uncomplicated CT guided bone marrow aspirate. 2. Uncomplicated CT guided bone marrow biopsy. Lee Mijares MD CT Angiography 12/25/17 0000 Signed Impressions: Service Date/Time: Monday, December 25, 2017 09:26 - CONCLUSION: 1. No CT evidence for pulmonary artery embolism. 2. Moderate to large bilateral pleural effusions with associated compressive atelectasis at the lung bases. 3. 8mm nodule in the right middle lobe. Followup CT examination may be performed at 6 months to document stability if this has not been evaluated previously. 4. Very mildly prominent mediastinal and hilar nodes and partially imaged upper abdominal lymphadenopathy in this patient with history of lymphoma. Miguel Ashton MD PE at Discharge GENERAL: Alert, NAD with generalized weakness. SKIN: Warm and dry. NECK: On T-Piece, No JVD or lymphadenopathy. CARDIOVASCULAR: Regular rate and rhythm without murmurs, gallops, or rubs. RESPIRATORY: Breath sounds equal bilaterally. No accessory muscle use. GASTROINTESTINAL: Abdomen soft, non-tender, nondistended. MUSCULOSKELETAL: No cyanosis 3+ lower ext edema. BACK: Nontender without obvious deformity. No CVA tenderness. Hospital Course 72yM with new diagnosis of lymphoma, course complicated by recurrent hypoxic respiratory failure, severe volume overload, acute kidney injury, multiorgan failure, shock, and severe acute protein calorie malnutrition. prognosis at this point is poor. I do not think he will survive this illness. Family continues to press for aggressive measures and FULL CODE s/p trach and vascath. Now that he is on dialysis, his acute medical problems are controlled- he certainly will need weaning from mechanical ventilation and strengthening before his lymphoma can be managed. 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 Patient's wants to reduce any sedatives. IF patient becomes more agitated, we can try low dose seroquel. CV: Hypertension Dyslipidemia 2D echocardiogram revealed EF 65-70%. Tricuspid regurgitation. PA P 38 mmHg Restart Lopressor Resp: Acute hypoxic hypercapnic respiratory failure secondary to aspiration pneumonia Right middle lobe pulmonary nodule 8 mm recommend 6 month follow-up CT chest COPD Patient written for budesonide/formoterol 160/4.5 2 puffs twice daily. Albuterol/ipratropium aerosols every 6 hours with albuterol aerosols every 2 hours as needed dyspnea On prednisone [address] Blevins/pulmonology is following, continue to wean s/p trach 01/[address] Graf GI: Status post GJ conversion by IR 01/08 Hypoalbuminemia Acute protein calorie malnutrition - severe. Abdominal pain Lansoprazole 30 mg twice daily for GI prophylaxis Docusate sodium liquid 100 mg twice daily for bowel regimen - will change it to PRN. On Megestrol 800 mg daily for anorexia Nutrition recommends vital 1.5 goal 60 cc an hour. Continue tube feed - currently at 40cc/hour. prealbumin 25 on 01/16. Previous abdominal x-ray unremarkable. Patient has no fever, leukocytosis and acidosis. We will continue to monitor abdominal status. : Hay catheter for accurate I's and O's in a critically ill patient: keep. needing accurate i/o's in acute oliguric renal failure. Endo: Sliding scale insulin to maintain euglycemia/low regimen every 6 hours TSH is 1.18 Renal: Acute kidney injury likely secondary to sepsis/ATN Right-sided nephrolithiasis Urine eosinophils negative. Renal ultrasound reveals medical renal disease and prior CT abdomen/pelvis revealed non-obstructing right renal stones. Followed by nephrology Avoid nephrotoxic medication Continue IV Lasix for fluid retention Nephrology to guide renal therapies. 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 Followed by hematology. Currently not stable enough for chemotherapy. Would be a candidate if he ever stabilized, but I do not see this as a functional reality. Unlikely to tolerate future chemotherapies. No indication for transfusion of blood products at this time ID: ID recommended discontinuation of all abx on 01/15/2018. Patient has been afebrile so far. Leukocytosis likely secondary to steroids. No fever will continue to monitor FEN: Hypernatremia Continue Tube feed. Gradually increase to at least 50cc/ hour. Replace electrolytes as clinically indicated MSK: Sacral decubitus ulcer Wound care management Prophylaxis -GI -lansoprazole -DVT -SCD/heparin subcu Pt Condition on Discharge: Stable Discharge Disposition: Trnsfr to Other Facility Discharge Time: > 30 minutes Discharge Instructions DIET: Follow Instructions for: On Tube Feeding Activities you can perform: Regular-No Restrictions Activities to Avoid: Driving Follow up Referrals: Nephrology - 1 Week Oncology - 1 Week PCP Follow-up - 2-3 Days Pulmonology - 1 Week New Medications: Clotrimazole Brandee (Clotrimazole Brandee) 10 Mg Troc 10 MG BUCCAL 5 TIMES A DAY for Infection, #70 BRANDEE Lansoprazole ODT (Prevacid Solutab ODT) 30 Mg Tab 30 MG G-TUBE BID for Manage Heartburn, #30 TAB Mix with 4 ml water before giving via tube. Metoprolol Tartrate (Metoprolol Tartrate) 25 Mg Tab 25 MG J-TUBE Q12HR for Blood Pressure Management, #60 TAB Multivitamin with Folic Acid (Thera Tablet) 400 Mcg Tablet 1 TAB J-TUBE DAILY for vit, #30 TAB Prednisone (Prednisone) 10 Mg Tab 10 MG J-TUBE DAILY for Control Inflammation, #7 TAB [Budeson-Formot 160-4.5 Mcg Inh] () 60 PUFF AERO 1 PUFF INH Q12HR for Breathing Treatment, #1 PUFF [Furosemide] () 10 MG/ML INJ 40 MG IV PUSH BID for fluid retention, #14 INJECTION [Megestrol Liq] () 400 MG/10 ML SUSP 800 MG J-TUBE DAILY for appetite, #100 ML Jonatan Green MD Jan 25, 2018 16:48
[2018-01-25] MEDS ORDERED: CLOTRIMAZOLE 10 MG TROCHE BUCCAL SCH (18:00)
[2018-01-25] MEDS ORDERED: METOPROLOL TARTRATE 25 MG TAB J-TUBE SCH (21:00)
== END 2018-01-25 19:43 | DRG 4 ==
LOC: HCIN 17:26 → N03A 01-01 15:31
PROVIDERS: ADMIT Internal Medicine; ATTEND Internal Medicine
PROC: 0DH63UZ Insertion of Feeding Device into Stomach, Percutaneous Approach (ICD-10-PCS; 2017-12-24)
PROC: 0DB68ZX Excision of Stomach, Via Natural or Artificial Opening Endoscopic, Diagnostic (ICD-10-PCS; 2017-12-24)
PROC: 07DR3ZX Extraction of Iliac Bone Marrow, Percutaneous Approach, Diagnostic (ICD-10-PCS; 2017-12-25)
PROC: 3E03305 Introduction of Other Antineoplastic into Peripheral Vein, Percutaneous Approach (ICD-10-PCS; 2017-12-25)
PROC: 0W993ZX Drainage of Right Pleural Cavity, Percutaneous Approach, Diagnostic (ICD-10-PCS; 2017-12-28)
PROC: 5A1955Z Respiratory Ventilation, Greater than 96 Consecutive Hours (ICD-10-PCS; 2018-01-01)
PROC: 0BH17EZ Insertion of Endotracheal Airway into Trachea, Via Natural or Artificial Opening (ICD-10-PCS; 2018-01-01)
PROC: 05HN33Z Insertion of Infusion Device into Left Internal Jugular Vein, Percutaneous Approach (ICD-10-PCS; 2018-01-02)
PROC: 30233N1 Transfusion of Nonautologous Red Blood Cells into Peripheral Vein, Percutaneous Approach (ICD-10-PCS; 2018-01-03)
PROC: 0D9670Z Drainage of Stomach with Drainage Device, Via Natural or Artificial Opening (ICD-10-PCS; 2018-01-05)
PROC: 0BH17EZ Insertion of Endotracheal Airway into Trachea, Via Natural or Artificial Opening (ICD-10-PCS; 2018-01-13)
PROC: 0B113F4 Bypass Trachea to Cutaneous with Tracheostomy Device, Percutaneous Approach (ICD-10-PCS; principal; 2018-01-16)
PROC: 0BJ08ZZ Inspection of Tracheobronchial Tree, Via Natural or Artificial Opening Endoscopic (ICD-10-PCS; 2018-01-16)
PROC: 05H633Z Insertion of Infusion Device into Left Subclavian Vein, Percutaneous Approach (ICD-10-PCS; 2018-01-16)
PROC: 5A1D70Z Performance of Urinary Filtration, Intermittent, Less than 6 Hours Per Day (ICD-10-PCS; 2018-01-16)
PROC: 05H633Z Insertion of Infusion Device into Left Subclavian Vein, Percutaneous Approach (ICD-10-PCS; 2018-01-22)
DX: C84.70 Anaplastic large cell lymphoma, ALK-negative, unspecified site (principal); J69.0 Pneumonitis due to inhalation of food and vomit; R57.9 Shock, unspecified; N17.0 Acute kidney failure with tubular necrosis; E43 Unspecified severe protein-calorie malnutrition; G93.41 Metabolic encephalopathy; A41.9 Sepsis, unspecified organism; J96.21 Acute and chronic respiratory failure with hypoxia; G93.49 Other encephalopathy; D61.810 Antineoplastic chemotherapy induced pancytopenia; J96.22 Acute and chronic respiratory failure with hypercapnia; J90 Pleural effusion, not elsewhere classified; Z99.11 Dependence on respirator [ventilator] status; R18.8 Other ascites; E87.2 Acidosis; J98.11 Atelectasis; K56.7 Ileus, unspecified; L89.159 Pressure ulcer of sacral region, unspecified stage; I48.91 Unspecified atrial fibrillation; I10 Essential (primary) hypertension; J43.9 Emphysema, unspecified; E78.5 Hyperlipidemia, unspecified; I07.1 Rheumatic tricuspid insufficiency; G57.93 Unspecified mononeuropathy of bilateral lower limbs; Z86.73 Personal history of transient ischemic attack (TIA), and cerebral infarction without residual deficits; Z87.891 Personal history of nicotine dependence; Z80.1 Family history of malignant neoplasm of trachea, bronchus and lung; F41.9 Anxiety disorder, unspecified; T38.0X5A Adverse effect of glucocorticoids and synthetic analogues, initial encounter; R73.9 Hyperglycemia, unspecified; L24.89 Irritant contact dermatitis due to other agents; R91.1 Solitary pulmonary nodule; G47.9 Sleep disorder, unspecified; R32 Unspecified urinary incontinence; E83.39 Other disorders of phosphorus metabolism; E87.6 Hypokalemia; L89.309 Pressure ulcer of unspecified buttock, unspecified stage; Z99.2 Dependence on renal dialysis; Z51.5 Encounter for palliative care; R62.7 Adult failure to thrive; N20.0 Calculus of kidney; E87.70 Fluid overload, unspecified; T45.1X5A Adverse effect of antineoplastic and immunosuppressive drugs, initial encounter; Y92.239 Unspecified place in hospital as the place of occurrence of the external cause
CPT/HCPCS: 31500; 31600; 31624; 36430; 36556; 36580; 36600; 38222; 49446; 70450; 70551; 71045; 71046; 71250; 71275; 74018; 74176; 74250; 76604; 76700; 76775; 76937; 77001; 77012; 80048; 80053; 80061; 80069; 80074; 80076; 80202; 81001; 82150; 82550; 82552; 82570; 82607; 82746; 82805; 82945; 82948; 83036; 83605; 83615; 83735; 83880; 83986; 84100; 84134; 84145; 84155; 84157; 84300; 84425; 84439; 84443; 84484; 84550; 85007; 85014; 85018; 85025; 85027; 85097; 85610; 85652; 85730; 86703; 86850; 86900; 86901; 86920; 87015; 87040; 87070; 87086; 87102; 87116; 87205; 87206; 87449; 87493; 87641; 88112; 88184; 88185; 88237; 88264; 88280; 88305; 88311; 88312; 88313; 89051; 90935; 93005; 93306; 93970; 94002; 94003; 94150; 94640; 94667; 94668; 95819; 96367; 96374; 96375; 99152; 99153; A7520; A7521; C1752; C1769; C1830; C1874; C1887; C1894; J0330; J0692; J0696; J1100; J1205; J1442; J1580; J1626; J1630; J1642; J1644; J1815; J1940; J2150; J2185; J2212; J2248; J2250; J2270; J2370; J2405; J2543; J2765; J2920; J2930; J3010; J3370; J3480; J7030; J7040; J7050; J7060; J7070; J7512; J7608; J7613; J9000; J9070; J9370; P9016; P9045; P9047; Q9963; Q9967